=== PATIENT | female | born 1970 | race Caucasian/White ===

== ENCOUNTER 2020-07-31 09:38 | Emergency (ER) | payer MEDICAID, SELFPAY ==
[2020-07-31 10:17] VITALS: BP 166/90; PULSE 67; RESP 18; TEMP 37.3; O2SAT 96; BMI 36.0
--- NOTE | 2020-07-31 10:39 | XR_ITS ---
EXAMINATION: XR CHEST CLINICAL INFORMATION: 50-year-old female patient with dizziness. COMPARISON: None TECHNIQUE: AP portable erect view of the chest was obtained. The time of examination was 12:24 PM. FINDINGS: The heart is normal in size. Mediastinal and hilar structures are normal. Lungs are clear showing no evidence of acute pulmonary parenchymal or pleural disease. Mild thoracic scoliosis is present. XR/XR chest 1V IMPRESSION: No acute cardiopulmonary disease.
--- NOTE | 2020-07-31 10:39 | ECG_ITS ---
Test Reason : WEAKNESS Blood Pressure : / mmHG Vent. Rate : 064 BPM Atrial Rate : 064 BPM P-R Int : 160 ms QRS Dur : 088 ms QT Int : 420 ms P-R-T Axes : 044 023 001 degrees QTc Int : 433 ms Normal sinus rhythm Nonspecific ST and T wave abnormality Abnormal ECG When compared with ECG of 20-NOV-2015 13:31, Nonspecific T wave abnormality now evident in Inferior leads Referred By: Seema Rubi Electronically Signed By:Israel Snow
--- NOTE | 2020-07-31 10:40 | CT_ITS ---
EXAMINATION: CT HEAD WITHOUT CONTRAST CLINICAL INFORMATION: Dizziness COMPARISON: None TECHNIQUE: Contiguous axial imaging was performed from the skull base to vertex without intravenous administration of contrast. This CT examination was performed using dose optimization techniques as appropriate, variously including the following: *Automated exposure control *Adjustment of mA and/or kV according to patient size (this includes techniques or standardized protocols for targeted exams where dose is matched to indication/reason for exam; i.e. extremities or head) *Use of iterative reconstruction technique DLP: 714 mGy-cm FINDINGS: There is no acute intra-axial, extra-axial bleed, masses or collection. There is no midline shift. There is linear hypodensity in the right oamr likely infarct of indeterminate age or less likely artifact. Is best visualized on axial image 79/5. No additional areas of acute hypodensity seen to suspect any acute infarct. The lateral ventricles are symmetrical in size and configuration without enlargement. The ferguson to white matter differentiation is maintained without mass effect. Bone windows reveal no calvarial abnormality bilateral paranasal sinuses and mastoid air cells are well-aerated. There is no scalp soft tissue abnormality. CT/CT head/brain wo con IMPRESSION: No acute bleed. There is a linear hypodensity in the right omar suspicious of infarct of indeterminate age. It is less likely to represent any artifact.
--- NOTE | 2020-07-31 10:40 | MR_ITS ---
EXAMINATION: MR BRAIN WITHOUT CONTRAST CLINICAL INFORMATION: Dizziness. Rule out cerebellar stroke. COMPARISON: MRI dated 11/25/2015. TECHNIQUE: Multiplanar, multisequence imaging of the brain was performed without contrast. Slightly limited study with motion artifacts. FINDINGS: No diffusion abnormalities are identified to suggest an acute or subacute infarct. The ventricles are normal in size. No mass effect or midline shift is seen. Nonspecific mild white matter signal changes are stable. No extra-axial fluid collections are seen. The brainstem and cerebellum are normal. The gradient refocused acquisition is normal. The craniovertebral junction, marrow signal, and midline structures are normal. The major intracranial flow voids at the level of the [place] are preserved. The dural venous sinus flow voids are maintained. The mastoid air cells are well aerated. There are small retention cysts along the floors of the maxillary sinuses. MR/MR head/brain wo con IMPRESSION: Nonspecific mild white matter signal changes. No acute intracranial process.
--- NOTE | 2020-07-31 10:55 | ED_ITS ---
HPI - General Adult General Chief complaint: General Medical Stated complaint: dizziness Time Seen by Provider: 07/31/20 10:39 Source: patient Mode of arrival: ambulatory Limitations: no limitations History of Present Illness HPI narrative: 50-year-old female with history of hypertension, seizure, chronic headaches, presented with 2 days history of dizziness feeling unbalanced with unsteady gait, and vomiting, no weakness or sensory loss. Otherwise no headache, no blurry vision, no chest pain, no difficulty breathing, no abdominal pain. Patient also declined any ENT symptoms. Related Data Previous Rx's Medication Instructions Recorded amlodipine 2.5 mg PO DAILY #10 tab 07/31/20 meclizine 25 mg PO BID PRN #20 tab 07/31/20 Allergies Allergy/AdvReac Type Severity Reaction Status Date / Time latex [LATEX] Allergy Unknown RASH Unverified 03/18/20 17:08 codeine [Codeine] AdvReac Unknown NAUSEOUS Unverified 03/18/20 17:08 Review of Systems Review of Systems: All other systems are reviewed and are negative Constitutional: Reports as per HPI and Reports no additional constitutional complaints Eyes: Reports as per HPI and Reports no additional eye complaints Reports system reviewed and no additional complaints, except as documented Cardiovascular: Reports as per HPI and Reports no additional cardiovascular comp laints Respiratory: Reports as per HPI and Reports no additional respiratory complaints Gastrointestinal: Reports as per HPI and Reports no additional gastrointestinal complaints Genitourinary: Reports no additional female genitourinary complaints Musculoskeletal: Reports no additional musculoskeletal complaints Skin/Breast: Reports system reviewed and no additional complaints, except as docu Psychiatric: Reports no additional psychiatric complaints Endocrine: Reports no additional endocrine complaints Hematologic/Lymphatic: Reports no additional hematologic/lymphatic complaints Allergic/Immunologic: Reports no additional allergic/immunologic complaints Reports system reviewed and no additional complaints, except as documented and Reports Abnormal speech present [facility] Past Medical History Medical History Acid reflux HTN (hypertension) Migraine Seizure disorder Social History Social History Alcohol intake: never Smoked in Last 30 Days: No Use of substances other than those prescribed or required for medical reasons: No Advance Directives: No Advance Directives Information Provided: No Physical Exam Vital Signs: Vital Signs: Last Vital Signs Temp 97.8 F 07/31/20 13:34 Pulse 65 07/31/20 13:34 Resp 18 07/31/20 13:34 BP 172/86 H 07/31/20 13:34 Pulse Ox 98 07/31/20 13:34 Body Mass Index 36.0 Vital signs have been reviewed as normal and appeared to be correct. Blood pressure in the high range. Heart rate normal. Respiration rate normal. Temperature normal. Oxygen saturation normal. Appearance: Alert. Oriented X3. No acute distress. Head: Normal external exam. Normocephalic. Atraumatic. No Ware signs noted. No raccoon eyes noted Eyes: PERRLA. EOMI. Conjunctiva and sclera normal. Eyelids normal. ENT: EAC normal. TM's Normal. Pharynx normal. Uvula midline. Moist mucous membranes. No trismus noted. No drooling noted. No muffled voice noted. Neck: Normal inspection. Neck supple. FROM. No adenopathy. Thyroid Normal. No meningeal signs. No neck mass noted. CVS: Normal heart rate and rhythm. Heart sound normal. No murmurs noted. Pulses normal throughout. Respiratory: No respiratory distress. Painless inspiration. Breath sounds normal. No wheezes/rales/rhonchi noted. Chest nontender. No accessory muscle usage noted or decreased air movement noted. Abdomen: Soft and nontender. Bowel sounds normal in all 4 quadrants. No distention noted. No organomegaly noted. No visible injury noted. Back: No CVA tenderness. Full range of motion noted. Skin: Skin warm and dry. Normal skin color. Normal skin turgor. No rashes/lesions/lacerations noted. Extremities: No lower extremity edema. Extremities exhibit normal range of motion. Extremities nontender. Neuro: Oriented X 3. No motor deficit. No sensory deficit. Reflexes normal. NIH Stroke Scale Level of Consciousness: Alert Level of Consciousness Questions: Answers both questions correctly Level of Consciousness Commands: Performs both tasks correctly Best Gaze: Normal Visual: No visual loss Facial Palsy: Normal Motor Arm (Right): No drift Motor Arm (Left): No drift Motor Leg (Right): No drift Motor Leg (Left): No drift Limb Ataxia: Absent Sensory: Normal Best Language: No aphasia Dysarthia: Normal Extinction and Inattention: No abnormality Score: 0 Course Course Course Narrative: Assessment and plan. This is a 50-year-old female who presented with vomiting and dizziness (vertigo), normal neuro exam, patient had a brain MRI which showed no acute stroke, leukocytosis for unclear etiology. Patient with normal neuro exam and normal physical exam. Blood pressure on the high side patient had a history of high blood pressure taking propanolol 40 mg twice a day her, I will add amlodipine 2.5 mg once daily hopefully will give a a better control of blood pressure and follow-up with PCP. Will discharge the patient was encouraged to drink plenty of fluids, try meclizine. Medical Decision Making Lab Data Lab results reviewed: Yes I reviewed the patient's lab results. Result diagrams: 07/31/20 11:07 07/31/20 11:07 Labs: Lab Results 07/31/20 07/31/20 07/31/20 Range/Units 10:40 11:07 11:07 WBC 12.4 H (4.8-10.8) X10*3/uL RBC 4.67 (4.20-5.50) X10*6/uL Hgb 14.4 (12.0-16.0) g/dl Hct 42.2 (37-47) % MCV 90.4 (80-98) fL MCH 30.8 (27.0-33.0) pg MCHC 34.1 (31.0-35.0) g/dl RDW 12.6 (11.0-16.0) % Plt Count 430 H (160-400) X10*3/uL MPV 9.2 L (9.4-12.3) fL Immature Gran % (Auto) 0.3 (0.0-0.4) % Neut % (Auto) 57.3 (45-73) % Lymph % (Auto) 33.0 (20-40) % [place] % (Auto) 8.0 (2-11) % Eos % (Auto) 0.8 (0-4) % Baso % (Auto) 0.6 (0-2) % Lymph # (Auto) 4.1 (1.2-4.9) X10*3/uL [place] # (Auto) 1.0 (0.1-1.2) X10*3/uL Eos # (Auto) 0.1 (0.0-0.4) X10*3/uL Baso # (Auto) 0.1 (0.0-0.2) X10*3/uL Abs Immat Gran (auto) 0.04 H (0.00-0.03) X10*3/uL Absolute Neuts (auto) 7.1 (2.0-8.3) X10*3/uL Absolute Nucleated RBC 0.000 (0.0-0.012) X10*3/uL Nucleated RBC % (auto) 0.0 (0.0-0.2) /100WBC Sodium 137 (135-145) mmol/L Potassium 3.9 (3.3-5.1) mmol/L Chloride 98 (96-108) mmol/L Carbon Dioxide 29 (22-29) mmol/L Anion Gap 14 (12-20) BUN 16 (9-16) mg/dL Creatinine 0.79 (0.5-1.4) mg/dL Estim Creat Clear Calc 94.3 Estimated GFR > 60 Random Glucose 103 (60-115) mg/dL Calcium 10.4 H (8.4-10.2) mg/dL Total Bilirubin 0.8 (0.0-1.0) mg/dL Direct Bilirubin 0.2 (0.0-0.5) mg/dL AST 30 (5-31) U/L ALT 39 H (0-31) U/L Alkaline Phosphatase 68 (39-117) U/L Troponin I High Sens (<3.5-17.0) ng/L B-Natriuretic Peptide (<100) pg/mL Total Protein 6.7 (6.5-8.0) g/dL Albumin 4.4 (3.5-5.0) g/dL Lipase 39 (8-78) U/L Urine Color Urine Appearance Urine pH (5.0-8.0) Ur Specific [place] (1.005-1.025) Urine Protein (NEG-TRACE) MG/DL Urine Glucose (UA) (NEG) MG/DL Urine Ketones (NEG) MG/DL Urine Blood (NEG) Urine Nitrite (NEG) Ur Leukocyte Esterase (NEG) Urine Test NEG (NEGATIVE) COVID-19 (MIKEY) (Negative) COVID-19 Clin Com 07/31/20 07/31/20 07/31/20 Range/Units 11:07 11:07 11:32 WBC (4.8-10.8) X10*3/uL RBC (4.20-5.50) X10*6/uL Hgb (12.0-16.0) g/dl Hct (37-47) % MCV (80-98) fL MCH (27.0-33.0) pg MCHC (31.0-35.0) g/dl RDW (11.0-16.0) % Plt Count (160-400) X10*3/uL MPV (9.4-12.3) fL Immature Gran % (Auto) (0.0-0.4) % Neut % (Auto) (45-73) % Lymph % (Auto) (20-40) % [place] % (Auto) (2-11) % Eos % (Auto) (0-4) % Baso % (Auto) (0-2) % Lymph # (Auto) (1.2-4.9) X10*3/uL [place] # (Auto) (0.1-1.2) X10*3/uL Eos # (Auto) (0.0-0.4) X10*3/uL Baso # (Auto) (0.0-0.2) X10*3/uL Abs Immat Gran (auto) (0.00-0.03) X10*3/uL Absolute Neuts (auto) (2.0-8.3) X10*3/uL Absolute Nucleated RBC (0.0-0.012) X10*3/uL Nucleated RBC % (auto) (0.0-0.2) /100WBC Sodium (135-145) mmol/L Potassium (3.3-5.1) mmol/L Chloride (96-108) mmol/L Carbon Dioxide (22-29) mmol/L Anion Gap (12-20) BUN (9-16) mg/dL Creatinine (0.5-1.4) mg/dL Estim Creat Clear Calc Estimated GFR Random Glucose (60-115) mg/dL Calcium (8.4-10.2) mg/dL Total Bilirubin (0.0-1.0) mg/dL Direct Bilirubin (0.0-0.5) mg/dL AST (5-31) U/L ALT (0-31) U/L Alkaline Phosphatase (39-117) U/L Troponin I High Sens 7.2 (<3.5-17.0) ng/L B-Natriuretic Peptide 34 (<100) pg/mL Total Protein (6.5-8.0) g/dL Albumin (3.5-5.0) g/dL Lipase (8-78) U/L Urine Color STRAW Urine Appearance HAZY Urine pH 6.5 (5.0-8.0) Ur Specific [place] <= 1.005 (1.005-1.025) Urine Protein NEG (NEG-TRACE) MG/DL Urine Glucose (UA) NEG (NEG) MG/DL Urine Ketones NEG (NEG) MG/DL Urine Blood NEG (NEG) Urine Nitrite NEG (NEG) Ur Leukocyte Esterase NEG (NEG) Urine Test (NEGATIVE) COVID-19 (MIKEY) Negative (Negative) COVID-19 Clin Com See Note Imaging Data Chest x-ray: Radiologist's impression: The heart is normal in size. Mediastinal and hilar structures are normal. Lungs are clear showing no evidence of acute pulmonary parenchymal or pleural disease. Mild thoracic scoliosis is present. CT scan - head: Radiologist's impression: No acute bleed. There is a linear hypodensity in the right omar suspicious of infarct of indeterminate age. It is less likely to represent any artifact. MRI - head: Radiologist's impression: Nonspecific mild white matter signal changes. No acute intracranial process. ECG Data Interpretation: Normal sinus rhythm at 64 beats per minute, normal axis deviation, LVH, nonspecific ST-T changes. Discharge Plan Discharge Clinical Impression: Vertigo Hypertension Qualifiers: Hypertension type: unspecified Qualified Code(s): I10 - Essential (primary) hypertension Patient Disposition: Home, Self-Care Instructions: Vertigo (ED), Hypertension (ED) Prescriptions: New meclizine 25 mg tablet 25 mg PO BID PRN (Reason: dizziness) Qty: 20 RF: 0 amlodipine 2.5 mg tablet 2.5 mg PO DAILY Qty: 10 RF: 0 Referrals: Oj Arvizu [Primary Care Provider] - 2 days
[2020-07-31] MEDS: 0.9 % Sodium Chloride 1,000 ML 999 ML IVCONT (11:08)
[2020-07-31 11:12] LABS: MANUAL DIFF FLAG NO
[2020-07-31 11:13] VITALS: BP 181/96; PULSE 65; RESP 18; TEMP 37.1; O2SAT 98
[2020-07-31] MEDS: Meclizine HCl 25 MG TABLET PO (11:13)
[2020-07-31 11:14] LABS: Basophils Absolute Auto 0.1 X10*3/uL (0.0-0.2); Basophils Percent Auto 0.6 % (0-2); Eosinophils Absolute Auto 0.1 X10*3/uL (0.0-0.4); Eosinophils Percent Auto 0.8 % (0-4); Hematocrit 42.2 % (37-47); Hemoglobin 14.4 g/dl (12.0-16.0); Imm Gran Abs Auto 0.04 X10*3/uL (0.00-0.03); Imm Gran Pct Auto 0.3 % (0.0-0.4); Lymphocytes Absolute Auto 4.1 X10*3/uL (1.2-4.9); Mean Corpuscular HGB Conc 34.1 g/dl (31.0-35.0); Mean Corpuscular Hemoglobin 30.8 pg (27.0-33.0); Mean Corpuscular Volume 90.4 fL (80-98); Mean Platelet Volume 9.2 fL (9.4-12.3); Neutrophils Absolute Auto 7.1 X10*3/uL (2.0-8.3); Neutrophils Percent Auto 57.3 % (45-73); Platelet Count 430 X10*3/uL (160-400); Red Blood Count 4.67 X10*6/uL (4.20-5.50); Red Cell Distribution Width 12.6 % (11.0-16.0); White Blood Count 12.4 X10*3/uL (4.8-10.8)
--- NOTE | 2020-07-31 11:34 | PC.NURSE ---
iv inserted, labs drawn, ekg performed, pt medicated per order, urine obtained, pt to mri, will continue to monitor.
[2020-07-31 11:41] LABS: Alanine Aminotransferase 39 U/L (0-31); Albumin Level 4.4 g/dL (3.5-5.0); Alkaline Phosphatase 68 U/L (39-117); Anion Gap 14 (12-20); Aspartate Amino Transferase 30 U/L (5-31); Bilirubin Direct 0.2 mg/dL (0.0-0.5); Bilirubin Total 0.8 mg/dL (0.0-1.0); Blood Urea Nitrogen 16 mg/dL (9-16); Calcium 10.4 mg/dL (8.4-10.2); Carbon Dioxide 29 mmol/L (22-29); Chloride 98 mmol/L (96-108); Creatinine Clr Calc Pharmacy 94.3; Estimated Glomerular Filt Rate > 60; Glucose Random 103 mg/dL (60-115); Lipase 39 U/L (8-78); Potassium 3.9 mmol/L (3.3-5.1); Sodium 137 mmol/L (135-145); Total Protein 6.7 g/dL (6.5-8.0)
[2020-07-31 11:45] LABS: B Type Natriuretic Peptide 34 pg/mL (<100); Troponin-I High Sensitivity 7.2 ng/L (<3.5-17.0)
[2020-07-31 11:48] LABS: COVID-19 Test Negative (Negative)
[2020-07-31 11:50] LABS: Glucose Urine UA NEG (NEG); Leukocyte Esterase Urine NEG (NEG); Nitrite Urine NEG (NEG); PH 6.5 (5.0-8.0); Specific Gravity - Urine <= 1.005 (1.005-1.025); Urine Blood NEG (NEG); Urine Ketones NEG (NEG); Urine Protein NEG (NEG-TRACE)
[2020-07-31 12:09] LABS: Appearance Urine HAZY; Color Urine STRAW
--- NOTE | 2020-07-31 12:28 | PC.NURSE ---
ivf continue to be running as they had been stopped for mri, will continue to monitor.
[2020-07-31 12:39] LABS: UPreg QC Valid YES; Urine Pregnancy NEG (NEGATIVE)
[2020-07-31 13:34] VITALS: BP 172/86; PULSE 65; RESP 18; TEMP 36.6; O2SAT 98
--- NOTE | 2020-07-31 13:35 | PC.NURSE ---
patient a&ox3, vss- pt mildy hypertensive no c/o pain or discomfort, will continue to monitor.
[2020-07-31 14:11] VITALS: BP 172/86; PULSE 66
[2020-07-31] MEDS: amLODIPine Besylate 2.5 MG TABLET PO (14:11)
== END 2020-07-31 14:19 | disposition home or self-care (01) ==
PROVIDERS: Emergency Provider Emergency Medicine; PCP Hospitalist
DX: R42 Dizziness and giddiness (principal); I10 Essential (primary) hypertension; Z20.822 Contact with and (suspected) exposure to COVID-19
CPT/HCPCS: 36415; 70450; 70551; 71045; 80048; 80076; 81003; 81025; 83690; 83880; 84484; 85025; 87635; 93005; 96360; 99284

== ENCOUNTER → 2021-09-23 10:05 | Outpatient (BNVA) | payer MEDICAID, SELFPAY | PROVIDERS: PCP Hospitalist; Visit Provider Internal Medicine | DX: G44.021 Chronic cluster headache, intractable (principal) | CPT/HCPCS: 99202 ==

== ENCOUNTER 2023-02-12 13:34 | Outpatient (AMB) | payer OTHER, SELFPAY ==
--- NOTE | 2023-02-12 14:20 | MHC.OFFVIS ---
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 No hx of injections. Hx of PT with no relief. Hx of knee cream with no relief. Hx of Home exercises with no relief. Patient reports ongoing pain for 3 years. Pain is more on the bottom part of the knee cap on both knees. She reports that her left knee is worse than the right knee. Pain is worse when sitting down. 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 The patient reports chronic pain for 3 years, since 2019. She claims the pain is on the bottom aspect of the knee caps bilaterally. She states her left knee is worse then her right knee. She reports increased pain when sitting down. Patient has no history of cortisone injections. Patient uses topical cream with no relief. Patient works on home exercises with no relief. [facility] Medical History Acid reflux Chronic cluster headache, intractable HTN (hypertension) Migraine Seizure disorder Social History Alcohol intake: never Review of Systems Const All systems reviewed & are unremarkable except as noted in HPI and below Physical Exam Const General: cooperative and no acute distress Orientation/consciousness: patient oriented x3 Resp Effort & Inspection: normal respiratory effort and able to speak in complete sentences Cardio Peripheral pulses: Peripheral pulses 2+ throughout Skin General skin exam: no rashes or lesions noted Neuro General: patient oriented x3 Extrem Other: Bilateral knees: Normal to inspection. No ecchymosis, erythema, or joint effusion. No tenderness to palpation to the medial or lateral joint lines. Full knee extension and flexion. Crepitus felt with ROM, right worse then left. NVI. Office Procedures Joint Injection/Drain Joint Injection/Drain Primary Site: right knee Secondary Site: left knee Injected: 80 mg of, DepoMedrol, with 8 mL of (2% plain lido ) and in the joint Approach Used: anterolateral Procedure: The patient tolerated the procedure well, but had some pain with the injection and there was some relief with the local anesthesia Coding 64448 - Large joint Procedure code (CPT) selection complete Results Reviewed Results Reviewed: 02/12/23 14:31 Lidocaine HCl 2 % MPF [Xylocaine 2 % MPF] 5 ml .ROUTE .STK-MED ONE methylPREDNISolone acetate [DEPO-MedroL] 80 mg .ROUTE .STK-MED ONE Assessment & Plan Assessment & Plan (1) Osteoarthritis of right knee: Code(s): M17.11 - Unilateral primary osteoarthritis, right knee (2) Osteoarthritis of left knee: Code(s): M17.12 - Unilateral primary osteoarthritis, left knee Plan Ms. Awad is a 52-year-old female who presents in the office today, as a new patient, for an evaluation of bilateral knee pain. The patient reports chronic pain for 3 years, since 2019. She claims the pain is on the bottom aspect of the knee caps bilaterally. She states her left knee is worse then her right knee. She reports increased pain when sitting down. Patient has no history of cortisone injections. Patient uses topical cream with no relief. Patient works on home exercises with no relief. The patient was offered a cortisone injection in the bilateral knees with 80 mg of DepoMedrol. The patient was explained the risk, benefits, and alternatives to receiving this injection. After receiving consent for the injection, the patient had the procedure done while in office today. The patient tolerated the procedure well with no complications. Follow up will be PRN, or sooner if needed. X-rays of the bilateral knees which were obtained while in the office today and were reviewed by me, Ana Flores PA-C, revealed bilateral osteoarthritis. Orders: Orders XR knee LT 2V Today M25.569 - Pain in unspecified knee XR knee RT 2V Today M25.569 - Pain in unspecified knee XR knee standing BI Today M25.569 - Pain in unspecified knee Patient Instructions: Scribed for Ana Flores PA-C by Joie Francois medical underwriter, on 02/12/2023 at 1:37 pm, EST. Coding Level of Care Code New Pt Level 3 (51212) Diagnoses Osteoarthritis of right knee M17.11 Osteoarthritis of left knee M17.12 CPT Codes Coding - 60252 Large joint: 07406 - Large joint ([id number])
== END 2023-02-12 14:47 | disposition home or self-care (01) ==
PROVIDERS: PCP Hospitalist; Visit Provider Physician Assistant
DX: M17.0 Bilateral primary osteoarthritis of knee (principal)
CPT/HCPCS: 20610; 99203

== ENCOUNTER 2023-02-12 13:34 | Outpatient (REF) | payer OTHER, SELFPAY ==
--- NOTE | ~2023-02-12 | XR_ITS ---
X-RAY BILATERAL KNEES CLINICAL HISTORY: Pain. COMPARISON: No relevant prior studies are available for comparison. TECHNIQUE: 2 views of each knee. AP standing view both knees. FINDINGS: No acute fracture or subluxation. Mild joint space narrowing of the medial compartment of the left knee and less so right knee. No chondrocalcinosis or erosions. No significant joint effusion. XR/XR knee RT 2V IMPRESSION: 1. No acute fracture or malalignment. 2. Mild degenerative osteoarthritis of the medial compartments of both knees slightly more noticeable on the left side.
--- NOTE | ~2023-02-12 | XR_ITS ---
X-RAY BILATERAL KNEES CLINICAL HISTORY: Pain. COMPARISON: No relevant prior studies are available for comparison. TECHNIQUE: 2 views of each knee. AP standing view both knees. FINDINGS: No acute fracture or subluxation. Mild joint space narrowing of the medial compartment of the left knee and less so right knee. No chondrocalcinosis or erosions. No significant joint effusion. XR/XR knee LT 2V IMPRESSION: 1. No acute fracture or malalignment. 2. Mild degenerative osteoarthritis of the medial compartments of both knees slightly more noticeable on the left side.
--- NOTE | ~2023-02-12 | XR_ITS ---
X-RAY BILATERAL KNEES CLINICAL HISTORY: Pain. COMPARISON: No relevant prior studies are available for comparison. TECHNIQUE: 2 views of each knee. AP standing view both knees. FINDINGS: No acute fracture or subluxation. Mild joint space narrowing of the medial compartment of the left knee and less so right knee. No chondrocalcinosis or erosions. No significant joint effusion. XR/XR knee standing BI IMPRESSION: 1. No acute fracture or malalignment. 2. Mild degenerative osteoarthritis of the medial compartments of both knees slightly more noticeable on the left side.
== END 2023-02-12 13:35 | disposition home or self-care (01) ==
LOC: HO.HOSX 13:34
PROVIDERS: PCP Hospitalist; Visit Provider Physician Assistant
DX: M17.0 Bilateral primary osteoarthritis of knee (principal)
CPT/HCPCS: 20610; 73560; 73565; 99202; J1040

== ENCOUNTER 2023-06-21 12:28 | Outpatient (AMB) | payer OTHER, SELFPAY ==
--- NOTE | 2023-06-21 12:35 | MHC.OFFVIS ---
Intake Intake Visit Reasons: OV-RT Ankle sprain-w/xrays cast off Intake Note: [place] 53 yr old female presents today s/p bilateral injection from 02/12/23 states injection lasted about 2 months and would like to repeat injection today. Allergies baclofen Allergy (Intermediate, Verified 06/21/23 12:36) Dizziness latex [LATEX] Allergy (Unknown, Verified 06/21/23 12:36) RASH codeine [Codeine] Adverse Reaction (Unknown, Verified 06/21/23 12:36) NAUSEOUS HPI OV-RT Ankle sprain-w/xrays cast off HPI Details 53-year-old female who presents in the office today for a follow up of bilateral knee osteoarthritis. I last saw the patient in the office on 02/12/2023 at which time she received bilateral cortisone injections. While in the office today the patient reports the injections gave her about 2 months of relief. She would like to repeat the injections while in the office today. [facility] Medical History Acid reflux Chronic cluster headache, intractable HTN (hypertension) Migraine Seizure disorder Social History Alcohol intake: never Review of Systems Const All systems reviewed & are unremarkable except as noted in HPI and below Physical Exam Const General: cooperative, healthy appearing and no acute distress Resp Effort & Inspection: normal respiratory effort and able to speak in complete sentences Cardio Rate: regular rate Peripheral pulses: Peripheral pulses 2+ throughout GI Palpation (GI): Soft to palpation Skin Lesions: no lesions Rashes: no rashes Extrem Other: Bilateral knees: Normal to inspection. No ecchymosis, erythema, or joint effusion. No tenderness to palpation to the medial or lateral joint lines. Full knee extension and flexion. Crepitus felt with ROM, right worse then left. NVI. Office Procedures Joint Injection/Drain Joint Injection/Drain Primary Site: right knee Secondary Site: left knee Prep: site was prepped using aseptic technique, ethochloride spray was applied and injection warnings given Injected: 80 mg of, DepoMedrol and with 8 mL of (2% plain lido ) Approach Used: anterolateral Procedure: The patient tolerated the procedure well, but had some pain with the injection and there was some relief with the local anesthesia Coding 77928 - Large joint Procedure code (CPT) selection complete Assessment & Plan Assessment & Plan (1) Osteoarthritis of right knee: Code(s): M17.11 - Unilateral primary osteoarthritis, right knee Qualifiers: Osteoarthritis type: unspecified Qualified Code(s): M17.11 - Unilateral primary osteoarthritis, right knee (2) Osteoarthritis of left knee: Code(s): M17.12 - Unilateral primary osteoarthritis, left knee Qualifiers: Osteoarthritis type: unspecified Qualified Code(s): M17.12 - Unilateral primary osteoarthritis, left knee Plan Ms. Awad is a 53-year-old female who presents in the office today for a follow up of bilateral knee osteoarthritis. I last saw the patient in the office on 02/12/2023 at which time she received bilateral cortisone injections. While in the office today the patient reports the injections gave her about 2 months of relief. She would like to repeat the injections while in the office today. The patient was offered a cortisone injection in the bilateral knees with 80 mg of DepoMedrol. The patient was explained the risk, benefits, and alternatives to receiving this injection. After receiving consent for the injection, the patient had the procedure done while in office today. The patient tolerated the procedure well with no complications. Follow up will be PRN, or sooner if needed. Patient Instructions: Scribed for Ana Flores PA-C by Joie Francois medical office receptionist, on 06/21/2023 at 12:33 pm, EST. Coding Level of Care Code Est Pt Level 3 (31008) Diagnoses Osteoarthritis of right knee, unspecified osteoarthritis type M17.11 Osteoarthritis type: unspecified Osteoarthritis of left knee, unspecified osteoarthritis type M17.12 Osteoarthritis type: unspecified CPT Codes Coding - 82126 Large joint: 02873 - Large joint ([id number])
== END 2023-06-21 12:54 | disposition home or self-care (01) ==
PROVIDERS: PCP Nurse Practitioner Family; Visit Provider Physician Assistant
DX: M17.0 Bilateral primary osteoarthritis of knee (principal)
CPT/HCPCS: 20610; 99213

== ENCOUNTER → 2023-06-21 12:28 | Outpatient (BNVA) | payer OTHER, SELFPAY | PROVIDERS: PCP Nurse Practitioner Family; Visit Provider Physician Assistant | DX: M17.0 Bilateral primary osteoarthritis of knee (principal) | CPT/HCPCS: 20610; 99212; J1040 ==

== ENCOUNTER 2023-08-08 17:17 | Emergency (ER) | payer OTHER, MEDICAID, SELFPAY ==
--- NOTE | ~2023-08-08 | XR_ITS ---
EXAMINATION: Bilateral knee and bilateral hand. Clinical indications: Status post fall with pain. COMPARISON: None. TECHNIQUE: 3 views each knee and 4 views each hand/wrist. FINDINGS: RIGHT KNEE: There is minimal loss of medial compartment joint space with periarticular spurring. The lateral and the patellofemoral compartment joint space is preserved. LEFT KNEE: There is mild loss of medial compartment joint space. No visible acute fracture or dislocation seen. No abnormal joint effusion or loose bodies. BILATERAL HAND/WRIST: Visualized intercarpal, carpometacarpal, interphalangeal and metacarpophalangeal joint spaces are maintained normal. There is no visible acute fracture, dislocation or subluxation seen in the left hand or left wrist. No abnormal joint effusion. The scaphoid bone is normal. XR/XR knee LT 4V IMPRESSION: Unremarkable bilateral hand/wrist exam. Mild loss of medial compartment joint space with periapical spurring of both knees. No visible acute fracture or dislocation seen.
--- NOTE | ~2023-08-08 | XR_ITS ---
EXAMINATION: Bilateral knee and bilateral hand. Clinical indications: Status post fall with pain. COMPARISON: None. TECHNIQUE: 3 views each knee and 4 views each hand/wrist. FINDINGS: RIGHT KNEE: There is minimal loss of medial compartment joint space with periarticular spurring. The lateral and the patellofemoral compartment joint space is preserved. LEFT KNEE: There is mild loss of medial compartment joint space. No visible acute fracture or dislocation seen. No abnormal joint effusion or loose bodies. BILATERAL HAND/WRIST: Visualized intercarpal, carpometacarpal, interphalangeal and metacarpophalangeal joint spaces are maintained normal. There is no visible acute fracture, dislocation or subluxation seen in the left hand or left wrist. No abnormal joint effusion. The scaphoid bone is normal. XR/XR knee RT 2V IMPRESSION: Unremarkable bilateral hand/wrist exam. Mild loss of medial compartment joint space with periapical spurring of both knees. No visible acute fracture or dislocation seen.
--- NOTE | ~2023-08-08 | CT_ITS ---
EXAMINATION: CT, brain, CT cervical spine and CT facial bones. CLINICAL INDICATIONS: Fall, pain. COMPARISON: CT brain 07/31/2020. TECHNIQUE: 5 mm thin axial and reformatted 2 mm thin sagittal and coronal images of brain were obtained. DLP 714. Subsequently axial 3 mm thin and reformatted 2 mm thin sagittal and coronal images of cervical spine were obtained. Lastly axial 3 mm thin and reformatted 1.5 mm thin sagittal and coronal images of facial bones were obtained. DLP 714. This CT examination was performed using dose optimization technique as appropriate, variously including the following: Automated exposure control Adjustment of MA and/or KV according to patient size(this includes techniques or standardized protocols for targeted exams where dose is matched to indication/reason for exam; extremities or head. Use of iterative reconstruction techniques. FINDINGS: Brain: There is no acute intra-axial, extra-axial bleed, masses or midline shift. There is no acute infarction in evolution. There is no edema. The lateral ventricles are symmetrical in size and configuration but enlarged. The ferguson to white matter difference is maintained normal. Bone windows reveal no calvarial abnormality. There is no scalp soft tissue abnormality. There is mucoperiosteal thickening bilateral maxillary and minimal ethmoid sinuses. Rest the paranasal sinuses and mastoid air cells are well-aerated. Facial bones: There is mild mucoperiosteal thickening bilateral maxillary and middle ethmoid sinuses. Lamina papyracea, cribriform plate and the bony sinus [place]ak are intact. Visualized bilateral optic globes, optic nerve and the bony orbits are intact there is no periorbital or intraorbital soft tissue swelling. There are no fractures involving nasal bones. The maxillofacial bones and the soft tissues are normal. Bilateral TM joints are symmetrical and normal. No fracture involving the mandible. Cervical spine: There is mild reversal of cervical lordosis. The vertebral heights and alignment is normal. Is loss of C4-C5, C5-C6 and C6-C7 disc heights with moderate ventral spondylosis. The craniovertebral junction and the C1-C2 alignment is normal. There is no visible acute fracture, dislocation or subluxation seen. The lung apices are clear. The tracheal airway is widely patent. There is a calcified and noncalcified nodule in the left thyroid lobe and a moderate size 1 cm nodule right thyroid lobe. The prevertebral and paravertebral soft tissues are normal. CT/CT cervical spine wo IV con IMPRESSION: 1. No acute intracranial process seen. 2. Age-related cerebral volume loss. 3. No acute maxillofacial, nasal or mandibular fracture. There is bilateral maxillary and minimal ethmoid sinus inflammatory changes. 4. Reversal of cervical lordosis with degenerative disc changes as described above. There is no visible acute fracture, dislocation or subluxation seen. Moderate ventral spondylosis.
--- NOTE | ~2023-08-08 | XR_ITS ---
EXAMINATION: Bilateral knee and bilateral hand. Clinical indications: Status post fall with pain. COMPARISON: None. TECHNIQUE: 3 views each knee and 4 views each hand/wrist. FINDINGS: RIGHT KNEE: There is minimal loss of medial compartment joint space with periarticular spurring. The lateral and the patellofemoral compartment joint space is preserved. LEFT KNEE: There is mild loss of medial compartment joint space. No visible acute fracture or dislocation seen. No abnormal joint effusion or loose bodies. BILATERAL HAND/WRIST: Visualized intercarpal, carpometacarpal, interphalangeal and metacarpophalangeal joint spaces are maintained normal. There is no visible acute fracture, dislocation or subluxation seen in the left hand or left wrist. No abnormal joint effusion. The scaphoid bone is normal. XR/XR hand wrist LT IMPRESSION: Unremarkable bilateral hand/wrist exam. Mild loss of medial compartment joint space with periapical spurring of both knees. No visible acute fracture or dislocation seen.
--- NOTE | ~2023-08-08 | CT_ITS ---
EXAMINATION: CT, brain, CT cervical spine and CT facial bones. CLINICAL INDICATIONS: Fall, pain. COMPARISON: CT brain 07/31/2020. TECHNIQUE: 5 mm thin axial and reformatted 2 mm thin sagittal and coronal images of brain were obtained. DLP 714. Subsequently axial 3 mm thin and reformatted 2 mm thin sagittal and coronal images of cervical spine were obtained. Lastly axial 3 mm thin and reformatted 1.5 mm thin sagittal and coronal images of facial bones were obtained. DLP 714. This CT examination was performed using dose optimization technique as appropriate, variously including the following: Automated exposure control Adjustment of MA and/or KV according to patient size(this includes techniques or standardized protocols for targeted exams where dose is matched to indication/reason for exam; extremities or head. Use of iterative reconstruction techniques. FINDINGS: Brain: There is no acute intra-axial, extra-axial bleed, masses or midline shift. There is no acute infarction in evolution. There is no edema. The lateral ventricles are symmetrical in size and configuration but enlarged. The ferguson to white matter difference is maintained normal. Bone windows reveal no calvarial abnormality. There is no scalp soft tissue abnormality. There is mucoperiosteal thickening bilateral maxillary and minimal ethmoid sinuses. Rest the paranasal sinuses and mastoid air cells are well-aerated. Facial bones: There is mild mucoperiosteal thickening bilateral maxillary and middle ethmoid sinuses. Lamina papyracea, cribriform plate and the bony sinus [place] are intact. Visualized bilateral optic globes, optic nerve and the bony orbits are intact there is no periorbital or intraorbital soft tissue swelling. There are no fractures involving nasal bones. The maxillofacial bones and the soft tissues are normal. Bilateral TM joints are symmetrical and normal. No fracture involving the mandible. Cervical spine: There is mild reversal of cervical lordosis. The vertebral heights and alignment is normal. Is loss of C4-C5, C5-C6 and C6-C7 disc heights with moderate ventral spondylosis. The craniovertebral junction and the C1-C2 alignment is normal. There is no visible acute fracture, dislocation or subluxation seen. The lung apices are clear. The tracheal airway is widely patent. There is a calcified and noncalcified nodule in the left thyroid lobe and a moderate size 1 cm nodule right thyroid lobe. The prevertebral and paravertebral soft tissues are normal. CT/CT head/brain wo IV con IMPRESSION: 1. No acute intracranial process seen. 2. Age-related cerebral volume loss. 3. No acute maxillofacial, nasal or mandibular fracture. There is bilateral maxillary and minimal ethmoid sinus inflammatory changes. 4. Reversal of cervical lordosis with degenerative disc changes as described above. There is no visible acute fracture, dislocation or subluxation seen. Moderate ventral spondylosis.
--- NOTE | ~2023-08-08 | XR_ITS ---
EXAMINATION: Bilateral knee and bilateral hand. Clinical indications: Status post fall with pain. COMPARISON: None. TECHNIQUE: 3 views each knee and 4 views each hand/wrist. FINDINGS: RIGHT KNEE: There is minimal loss of medial compartment joint space with periarticular spurring. The lateral and the patellofemoral compartment joint space is preserved. LEFT KNEE: There is mild loss of medial compartment joint space. No visible acute fracture or dislocation seen. No abnormal joint effusion or loose bodies. BILATERAL HAND/WRIST: Visualized intercarpal, carpometacarpal, interphalangeal and metacarpophalangeal joint spaces are maintained normal. There is no visible acute fracture, dislocation or subluxation seen in the left hand or left wrist. No abnormal joint effusion. The scaphoid bone is normal. XR/XR hand wrist RT IMPRESSION: Unremarkable bilateral hand/wrist exam. Mild loss of medial compartment joint space with periapical spurring of both knees. No visible acute fracture or dislocation seen.
[2023-08-08 18:00] VITALS: BP 152/77; PULSE 68; RESP 18; TEMP 36; O2SAT 96; BMI 35.0
--- NOTE | 2023-08-08 18:06 | ED_ITS ---
HPI - Fall General Chief Complaint: Fall Stated Complaint: fell and hit face and head - referred by pcp Time Seen by Provider: 08/08/23 23:56 History of Present Illness HPI Narrative: Patient is a 53-year-old woman with a history of a seizure disorder and chronic headaches who says that her gait is somewhat unsteady at baseline. She was in her home today when she tripped and fell. She fell forward landing on her knees, her hands, and her face. Related Data Home Medications Medication Instructions Recorded Confirmed divalproex 250 mg tablet,delayed 250 mg PO BID 09/23/21 release gabapentin 300 mg capsule 600 mg PO TID 09/23/21 omeprazole 20 mg capsule,delayed 20 mg PO BID 09/23/21 release lamotrigine 25 mg tablet 200 mg PO BID 02/12/23 magnesium oxide 400 mg (241.3 mg 400 mg PO DAILY 02/12/23 magnesium) tablet propranolol 40 mg tablet 40 mg PO BID 02/12/23 riboflavin (vitamin B2) 400 mg 400 mg PO DAILY 02/12/23 tablet Previous Rx's Medication Instructions Recorded amlodipine 2.5 mg tablet 2.5 mg PO DAILY #10 tabs 07/31/20 meclizine 25 mg tablet 25 mg PO BID PRN dizziness #20 tabs 07/31/20 Allergies Allergy/AdvReac Type Severity Reaction Status Date / Time baclofen Allergy Intermediate Dizziness Verified 08/08/23 18:00 latex [LATEX] Allergy Unknown RASH Verified 08/08/23 18:00 codeine [Codeine] AdvReac Unknown NAUSEOUS Verified 08/08/23 18:00 PMFSH Past Medical History Medical History Acid reflux Chronic cluster headache, intractable HTN (hypertension) Migraine Seizure disorder Social History Social History Alcohol intake: never Advance Directives: No Advance Directives Information Provided: No Physical Exam Vital Signs: Vital Signs: Last Vital Signs Temp 96.8 F 08/08/23 18:00 Pulse 68 08/08/23 18:00 Resp 18 08/08/23 18:00 BP 152/77 H 08/08/23 18:00 Pulse Ox 96 08/08/23 18:00 O2 Del Method Room Air 08/08/23 18:00 BMI result Body Mass Index 35.0 Const: Other: The patient is awake and alert. She has a somewhat overweight, somewhat chronically ill-appearing 53-year-old who is pleasant cooperative. She does not appear severely injured. HEENT: Other: Mild contusion to the forehead. No raccoon eyes. No st sign. No hemotympanum. Eyes: General: appearance normal, both eyes and all related structures Eyelids: Yes eyelids normal Conjunctivae: conjunctivae normal Pupils: Equal, round and reactive pupils present EOM: EOMs intact bilaterally Neck: Other: Diffuse posterior C-spine tenderness, mostly paraspinous tenderness bilaterally Resp: Effort & Inspection: normal respiratory effort Auscultation: clear to auscultation bilaterally Cardio: Rate: regular rate Rhythm: regular rhythm Heart sounds: S1 normal heart sound present and S2 normal heart sound present Skin: Other: The patient has abrasions to the knees and hands. Contusion to the forehead. Neuro: Other: The patient is awake, alert, oriented, appropriate. Cranial nerves 2-12 are grossly intact. She moves her extremities appropriately and symmetrically. Gait was reasonably steady. Cranial nerves: Yes Equal, round and reactive pupils present Extrem: Other: Diffuse tenderness to multiple portions of both hands and diffuse tenderness to the knees but she is able to use her joints well. Course Course Course Narrative: RME:?53 yo female here with face pain, R hand pain, left knee pain s/p trip and fall in her kitchen. fell forward onto vinyl tile. no LOC. no thinners bruises to face. perrla. abrasions to R hand, L knee. exam nonfocal. imaging ordered. Full HPI, ROS and PE to be performed by the primary ED provider. contacted by [employer] who states patient is now requesting xrays of both hands and both knees. Medical Decision Making Medical Decision Making MDM Narrative: The patient is a 53-year-old woman with a history of chronic headaches and a seizure disorder who says that she normally has a somewhat unsteady gait and considers herself prone to falls. She tripped and fell at her own home today. She struck her head. She contacted her PCP you had her come to the emergency room for evaluation. She has a negative CT scan of the head, face, and cervical spine. She has negative x-rays of both knees as well as the hands and the wrists bilaterally. She has some minor skin injuries. Otherwise she looks well and can be managed as an outpatient. Discharge Plan Discharge Clinical Impression: Fall, Head injury, Cervical strain, acute, Contusion of knee, Contusion of hand(s) Patient Disposition: Home, Self-Care Additional Instructions: Your testing in the emergency room today shows that you did not break any bones or have any other acutely dangerous injuries. Please plan on resting and taking it easy over the next few days. You may use acetaminophen and ibuprofen as needed for pains. You will probably feel more sore before you start to feel better. Often people feel worse the day after a fall. Please stay in touch with your regular doctor for additional advice as needed. Return to the emergency room if significantly worse. Prescriptions: No Action meclizine 25 mg tablet 25 mg PO BID PRN (Reason: dizziness) Qty: 20 0RF amlodipine 2.5 mg tablet 2.5 mg PO DAILY Qty: 10 0RF divalproex 250 mg tablet,delayed release (DR/EC) 250 mg PO BID gabapentin 300 mg capsule 600 mg PO TID omeprazole 20 mg capsule,delayed release(DR/EC) 20 mg PO BID lamotrigine 25 mg tablet 200 mg PO BID propranolol 40 mg tablet 40 mg PO BID riboflavin (vitamin B2) 400 mg tablet 400 mg PO DAILY magnesium oxide 400 mg (241.3 mg magnesium) tablet 400 mg PO DAILY Referrals: Song Cooney MD [Primary Care Provider] -
[2023-08-09 00:05] VITALS: BP 129/73; PULSE 61; RESP 20; O2SAT 96
== END 2023-08-09 00:16 | disposition home or self-care (01) ==
PROVIDERS: Emergency Provider Emergency Medicine; PCP Internal Medicine
DX: S09.90XA Unspecified injury of head, initial encounter (principal); S16.1XXA Strain of muscle, fascia and tendon at neck level, initial encounter; S80.02XA Contusion of left knee, initial encounter; S60.221A Contusion of right hand, initial encounter; W01.0XXA Fall on same level from slipping, tripping and stumbling without subsequent striking against object, initial encounter; Y93.89 Activity, other specified; Y92.039 Unspecified place in apartment as the place of occurrence of the external cause; Y99.9 Unspecified external cause status
CPT/HCPCS: 70450; 70486; 72125; 73110; 73130; 73560; 73564; 99283; 99284

== ENCOUNTER 2023-09-21 12:36 | Outpatient (AMB) | payer OTHER, SELFPAY ==
[2023-09-21 12:59] VITALS: BMI 35.0
--- NOTE | 2023-09-21 12:59 | A.OFFVIS_ITS ---
Intake Vital Signs 09/21/23 12:59 Height 5 ft 4 in Weight 204 lb BMI 35.0 Intake Visit Reasons: OV - B/L knee OA, last inj 06/21/23 Intake Note: Kenya is a 53 year old female who presents today for a follow up for her left knee OA, last injection for bilateral knee on 06/21/23. States injection were painful at first but then she felt relief and would like to repeat injection today. Allergies baclofen Allergy (Intermediate, Verified 09/21/23 13:01) Dizziness latex [LATEX] Allergy (Unknown, Verified 09/21/23 13:01) RASH codeine [Codeine] Adverse Reaction (Unknown, Verified 09/21/23 13:01) NAUSEOUS HPI OV - B/L knee OA, last inj 06/21/23 HPI Details 53-year-old female who presents in the [facility] today for a follow up of bilateral knee osteoarthritis. I last saw the patient in the office on 06/21/2023 at which time she was given bilateral knee cortisone injections. Patient states the injection was painful at first, but then she felt relief. She would like to repeat the injection today. [facility] Medical History Acid reflux Chronic cluster headache, intractable HTN (hypertension) Migraine Seizure disorder Social History Alcohol intake: never Review of Systems Const All systems reviewed & are unremarkable except as noted in HPI and below Physical Exam Vital Signs: BMI result Body Mass Index 35.0 Const General: cooperative, healthy appearing and no acute distress Resp Effort & Inspection: normal respiratory effort and able to speak in complete sentences Cardio Rate: regular rate Peripheral pulses: Peripheral pulses 2+ throughout GI Palpation (GI): Soft to palpation Skin Lesions: no lesions Rashes: no rashes Extrem Other: Bilateral knees: Normal to inspection. No ecchymosis, erythema, or joint effusion. No tenderness to palpation to the medial or lateral joint lines. Full knee extension and flexion. Crepitus felt with ROM, right worse then left. NVI. Office Procedures Joint Injection/Drain Joint Injection/Drain Primary Site: right knee Secondary Site: left knee Prep: site was prepped using aseptic technique, ethochloride spray was applied and injection warnings given Injected: 80 mg of, DepoMedrol, with 8 mL of (2% plain lido ) and in the joint Approach Used: anterolateral Procedure: The patient tolerated the procedure well, but had some pain with the injection and there was some relief with the local anesthesia Coding 45044 - Large joint Procedure code (CPT) selection complete Assessment & Plan Assessment & Plan (1) Osteoarthritis of right knee: Code(s): M17.11 - Unilateral primary osteoarthritis, right knee Qualifiers: Osteoarthritis type: unspecified Qualified Code(s): M17.11 - Unilateral primary osteoarthritis, right knee (2) Osteoarthritis of left knee: Code(s): M17.12 - Unilateral primary osteoarthritis, left knee Qualifiers: Osteoarthritis type: unspecified Qualified Code(s): M17.12 - Unilateral primary osteoarthritis, left knee Plan Ms. Awad is a 53-year-old female who presents in the office today for a follow up of bilateral knee osteoarthritis. I last saw the patient in the office on 06/21/2023 at which time she was given bilateral knee cortisone injections. Patient states the injection was painful at first, but then she felt relief. She would like to repeat the injection today. The patient was offered a cortisone injection in the bilateral knees with 80 mg of DepoMedrol. The patient was explained the risk, benefits, and alternatives to receiving this injection. After receiving consent for the injection, the patient had the procedure done while in office today. The patient tolerated the procedure well with no complications. Follow up will be PRN, or sooner if needed. X-rays of the bilateral knees which were obtained while in the office today and were reviewed by me, Ana Flores PA-C, revealed no acute fracture or dislocation. Orders: Orders XR knee standing BI Today M25.569 - Pain in unspecified knee Patient Instructions: Scribed by Joie Francois medical intern, for Ana Flores PA-C on 09/21/2023 at 12:43 pm, EST. Coding Level of Care Code Est Pt Level 3 (83268) Diagnoses Osteoarthritis of right knee, unspecified osteoarthritis type M17.11 Osteoarthritis type: unspecified Osteoarthritis of left knee, unspecified osteoarthritis type M17.12 Osteoarthritis type: unspecified CPT Codes Coding - Large joint: 55205 - Large joint ([id number])
== END 2023-09-21 13:17 | disposition home or self-care (01) ==
PROVIDERS: PCP Nurse Practitioner Family; Visit Provider Physician Assistant
DX: M17.0 Bilateral primary osteoarthritis of knee (principal)
CPT/HCPCS: 20610; 99213

== ENCOUNTER 2023-09-21 13:11 | Outpatient (REF) | payer OTHER, SELFPAY ==
--- NOTE | ~2023-09-21 | XR_ITS ---
EXAMINATION: XR BILATERAL KNEES CLINICAL INFORMATION: Pain in unspecified knee. COMPARISON: Right knee and left knee 08/08/2023. TECHNIQUE: AP standing and sunrise views of bilateral knees. FINDINGS: RIGHT KNEE: Mild narrowing of the medial and lateral compartments. Faint chondrocalcinosis in the lateral and possibly medial compartments. LEFT KNEE: [id number] narrowing of the medial compartment with medial and lateral small marginal osteophytes. Small left posterior patellar osteophytes. XR/XR knee LT 2V IMPRESSION: Mild degenerative changes in the bilateral knees.
--- NOTE | ~2023-09-21 | XR_ITS ---
EXAMINATION: XR BILATERAL KNEES CLINICAL INFORMATION: Pain in unspecified knee. COMPARISON: Right knee and left knee 08/08/2023. TECHNIQUE: AP standing and sunrise views of bilateral knees. FINDINGS: RIGHT KNEE: Mild narrowing of the medial and lateral compartments. Faint chondrocalcinosis in the lateral and possibly medial compartments. LEFT KNEE: [id number]-[id number] narrowing of the medial compartment with medial and lateral small marginal osteophytes. Small left posterior patellar osteophytes. XR/XR knee RT 2V IMPRESSION: Mild degenerative changes in the bilateral knees.
== END 2023-09-21 13:12 | disposition home or self-care (01) ==
LOC: HO.HOSX 13:11
PROVIDERS: Visit Provider Physician Assistant
DX: M17.0 Bilateral primary osteoarthritis of knee (principal)
CPT/HCPCS: 20610; 73560; 99212; J1040

== ENCOUNTER 2023-11-01 10:47 | Outpatient (REF) | payer OTHER, SELFPAY ==
--- NOTE | ~2023-11-01 | XR_ITS ---
EXAMINATION: XR LUMBOSACRAL SPINE CLINICAL INFORMATION: Back pain. COMPARISON: None available. TECHNIQUE: Three views of the lumbosacral spine. FINDINGS: Levoscoliosis of the lumbar spine. Facet arthritis in the lower lumbar spine. Bilateral sacroiliac joints are symmetric. Lumbar vertebral body heights are preserved. Multilevel lumbar spondylosis with advanced degenerative changes and loss of disc space height at L5 on S1. XR/XR lumbar spine 2-3V IMPRESSION: Multilevel lumbar spondylosis with advanced degenerative changes and loss of disc space height at L5 on S1.
== END 2023-11-01 10:48 | disposition home or self-care (01) ==
LOC: HO.HOSX 10:47
PROVIDERS: PCP Internal Medicine; Visit Provider Physical Medicine & Rehabilitation
DX: M54.9 Dorsalgia, unspecified (principal); M53.3 Sacrococcygeal disorders, not elsewhere classified; M79.18 Myalgia, other site; R29.6 Repeated falls
CPT/HCPCS: 72100; 99202

== ENCOUNTER 2023-11-01 10:47 | Outpatient (AMB) | payer OTHER, SELFPAY ==
--- NOTE | 2023-11-01 11:01 | MHC.OFFVIS ---
Vital Signs 11/01/23 11:02 Height 5 ft 4 in Weight 204 lb BMI 35.0 Intake Visit Reasons: Newprob-Spine/lower back pain Intake Note: Kenya 53 yr old female presents today for a new patient evaluation for her spine/lower back pain. States she was told from the ED dept after a cervical spine CT scan she has spine deformity. States she has lower back pain and is uncomfortable when walking, sitting and exercising. She also complains of neck pain that is constant. States she was Referred by Levi Perez. Hx of migraines and seizures. Allergies baclofen Allergy (Intermediate, Verified 11/01/23 11:11) Dizziness latex [LATEX] Allergy (Unknown, Verified 11/01/23 11:11) RASH codeine [Codeine] Adverse Reaction (Unknown, Verified 11/01/23 11:11) NAUSEOUS HPI Comments Details: History of a seizure disorder and chronic headaches, gait is somewhat unsteady at baseline, who fell at home 08/08/23, landing on her knees, her hands, and her face. Presented to ER. Negative CT scan of the head, face, and cervical spine. Negative x-rays of both knees as well as the hands and the wrists bilaterally. Some minor skin injuries. She had fallen once after again. She says she gets off balance and dizzy. She gets seizures 1-3 days, says controlled by medicine, managed by Dr. Conrad in [facility]. Sees a headache specialist from [place] with Botox. Chronic back pain, roughly 10 years. Pain on posterior neck and points to sacral area, constant, bothers her with almost any activity. Lower back could radiate to thighs but not lower than knees. No numbness. The neck pain does not radiate. No numbness. 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 Patient was appropriately conversant and oriented. Forgetful. MSK: No specific abnormalities found on inspection of the spine and all extremities. No pain with palpation over the lumbar area. Tenderness is over right SI joint. Tight upper trapezius. Lumbar ROM was full. Straight-leg raising test negative. FABERE test negative. Unstable gait. Neurological: Negative pronator drift. Prasad?s negative bilaterally. Babinski was down going bilaterally. Clonus was negative. Results Reviewed Results Reviewed: Ordering Physician: Sierra Rhodes Date of Service: 08/08/23 Procedure(s): CT head/brain wo IV con Accession Number(s): [id number] cc: Physician,Unknown ; Sierra Rhodes~ EXAMINATION: CT, brain, CT cervical spine and CT facial bones. CLINICAL INDICATIONS: Fall, pain. COMPARISON: CT brain 07/31/2020. TECHNIQUE: 5 mm thin axial and reformatted 2 mm thin sagittal and coronal images of brain were obtained. DLP 714. Subsequently axial 3 mm thin and reformatted 2 mm thin sagittal and coronal images of cervical spine were obtained. Lastly axial 3 mm thin and reformatted 1.5 mm thin sagittal and coronal images of facial bones were obtained. DLP 714. This CT examination was performed using dose optimization technique as appropriate, variously including the following: Automated exposure control Adjustment of MA and/or KV according to patient size(this includes techniques or standardized protocols for targeted exams where dose is matched to indication/reason for exam; extremities or head. Use of iterative reconstruction techniques. FINDINGS: Brain: There is no acute intra-axial, extra-axial bleed, masses or midline shift. There is no acute infarction in evolution. There is no edema. The lateral ventricles are symmetrical in size and configuration but enlarged. The ferguson to white matter difference is maintained normal. Bone windows reveal no calvarial abnormality. There is no scalp soft tissue abnormality. There is mucoperiosteal thickening bilateral maxillary and minimal ethmoid sinuses. Rest the paranasal sinuses and mastoid air cells are well-aerated. Facial bones: There is mild mucoperiosteal thickening bilateral maxillary and middle ethmoid sinuses. Lamina papyracea, cribriform plate and the bony sinus nowak are intact. Visualized bilateral optic globes, optic nerve and the bony orbits are intact there is no periorbital or intraorbital soft tissue swelling. There are no fractures involving nasal bones. The maxillofacial bones and the soft tissues are normal. Bilateral TM joints are symmetrical and normal. No fracture involving the mandible. Cervical spine: There is mild reversal of cervical lordosis. The vertebral heights and alignment is normal. Is loss of C4-C5, C5-C6 and C6-C7 disc heights with moderate ventral spondylosis. The craniovertebral junction and the C1-C2 alignment is normal. There is no visible acute fracture, dislocation or subluxation seen. The lung apices are clear. The tracheal airway is widely patent. There is a calcified and noncalcified nodule in the left thyroid lobe and a moderate size 1 cm nodule right thyroid lobe. The prevertebral and paravertebral soft tissues are normal. CT/CT head/brain wo IV con IMPRESSION: 1. No acute intracranial process seen. 2. Age-related cerebral volume loss. 3. No acute maxillofacial, nasal or mandibular fracture. There is bilateral maxillary and minimal ethmoid sinus inflammatory changes. 4. Reversal of cervical lordosis with degenerative disc changes as described above. There is no visible acute fracture, dislocation or subluxation seen. Moderate ventral spondylosis. I reviewed records from the following: ER notes Ortho notes Pain management notes Assessment & Plan Assessment & Plan (1) Sacroiliac joint dysfunction of right side: Code(s): M53.3 - Sacrococcygeal disorders, not elsewhere classified Category: Medical (2) Myofascial pain: Code(s): M79.18 - Myalgia, other site Category: Medical (3) Frequent falls: Code(s): R29.6 - Repeated falls Category: Medical Plan On exam, tender on right SI joint and trapezius. Discussed how those are different and separate from cervical or lumbar spine. Frequent falls with history of daily seizures. Referring to PT: work on right SI joint, myofascial pain on upper trapezius, gait and fall prevention. Will do lumbar xrays today. Assessment and plan discussed with patient, and patient was agreeable. All questions were answered thoroughly. Follow-up 3 months. Tracee Vazquez MD, MIN Board Certified, [place] Board [employer] Physical Medicine and Rehabilitation (ABPMR) Board Certified, [place] Board of Electrodiagnostic Medicine (ABEM) Orders: Orders PT Evaluation and Treatment Today M53.3 - Sacrococcygeal disorders, not elsewhere classified, M79.18 - Myalgia, other site, R29.6 - Repeated falls XR lumbar spine 2-3V Today M54.9 - Dorsalgia, unspecified Coding Level of Care Code New Pt Level 4 (88218) Diagnoses Sacroiliac joint dysfunction of right side M53.3 Myofascial pain M79.18 Frequent falls R29.6
[2023-11-01 11:02] VITALS: BMI 35.0
== END 2023-11-01 11:31 | disposition home or self-care (01) ==
LOC: HO.HOS 10:47
PROVIDERS: PCP Internal Medicine; Visit Provider Physical Medicine & Rehabilitation
DX: M53.3 Sacrococcygeal disorders, not elsewhere classified (principal); M79.18 Myalgia, other site; R29.6 Repeated falls
CPT/HCPCS: 99204

== ENCOUNTER 2023-11-22 09:02 | Outpatient (AMB) | payer OTHER, SELFPAY ==
[2023-11-22 09:12] VITALS: BMI 35.0
--- NOTE | 2023-11-22 09:12 | A.OFFVIS_ITS ---
Vital Signs 11/22/23 09:12 Height 5 ft 4 in Weight 204 lb BMI 35.0 Intake Visit Reasons: ov-Spine/lower back pain Intake Note: Kenya is a 53 year old female who presents today for a follow up of her right SI joint and trapezius myofacial pain. Patient reports that she is having continue pain. She tried getting in touch with PT in [place] but states that they didnt answer so she has not set up appointments. I contacted the PT office, gave them an alternative number for this patient and asked that they contact patient for scheduling. Allergies baclofen Allergy (Intermediate, Verified 11/01/23 11:11) Dizziness latex [LATEX] Allergy (Unknown, Verified 11/01/23 11:11) RASH codeine [Codeine] Adverse Reaction (Unknown, Verified 11/01/23 11:11) NAUSEOUS HPI Comments Details: First visit 11/01/23 - History of a seizure disorder and chronic headaches, gait is somewhat unsteady at baseline, who fell at home 08/08/23, landing on her knees, her hands, and her face. Presented to ER. Negative CT scan of the head, face, and cervical spine. Negative x-rays of both knees as well as the hands and the wrists bilaterally. Some minor skin injuries. She had fallen once after again. She says she gets off balance and dizzy. She gets seizures 1-3 days, says controlled by medicine, managed by Dr. Conrad in [facility]. Sees a headache specialist from [place] with Botox. Chronic back pain, roughly 10 years. Pain on posterior neck and points to sacral area, constant, bothers her with almost any activity. Lower back could radiate to thighs but not lower than knees. No numbness. The neck pain does not radiate. No numbness. Treatment done so far: topical last physical therapy - a year ago, for leg strengthening 11/22/23 - No falls last seen. No seizures. No ER visit. Pain same. No PT done yet, claims she has not received any call. Lumbar xrays to be discussed today. She is forgetful. Last visit she had two pain areas - right upper trapezius and right SI joint. Right neck still bothers her. Forgets that she had CT scan done already. Reversal of cervical lordosis with degenerative disc changes as described above. There is no visible acute fracture, dislocation or subluxation seen. Moderate ventral spondylosis. 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 Patient was appropriately oriented. Forgetful. MSK: No specific abnormalities found on inspection of the spine and all extremities. No pain with palpation over the lumbar area. Tenderness is over right SI joint. Tight upper trapezius. Lumbar ROM was full. Straight-leg raising test negative. FABERE test negative. Neurological: Negative pronator drift. Prasad?s negative bilaterally. Babinski was down going bilaterally. Clonus was negative. 5/5 on BUE and BLE. Results Reviewed Results Reviewed: Ordering Physician: Tracee Campbell Date of Service: 11/01/23 Procedure(s): XR lumbar spine 2-3V Accession Number(s): [id number] cc: Song Cooney MD; Tracee Campbell~ EXAMINATION: XR LUMBOSACRAL SPINE CLINICAL INFORMATION: Back pain. COMPARISON: None available. TECHNIQUE: Three views of the lumbosacral spine. FINDINGS: Levoscoliosis of the lumbar spine. Facet arthritis in the lower lumbar spine. Bilateral sacroiliac joints are symmetric. Lumbar vertebral body heights are preserved. Multilevel lumbar spondylosis with advanced degenerative changes and loss of disc space height at L5 on S1. XR/XR lumbar spine 2-3V IMPRESSION: Multilevel lumbar spondylosis with advanced degenerative changes and loss of disc space height at L5 on S1. Ordering Physician: Sierra Rhodes Date of Service: 08/08/23 Procedure(s): CT head/brain wo IV con Accession Number(s): [id number] cc: Physician,Unknown ; Sierra Rhodes~ EXAMINATION: CT, brain, CT cervical spine and CT facial bones. CLINICAL INDICATIONS: Fall, pain. COMPARISON: CT brain 07/31/2020. TECHNIQUE: 5 mm thin axial and reformatted 2 mm thin sagittal and coronal images of brain were obtained. DLP 714. Subsequently axial 3 mm thin and reformatted 2 mm thin sagittal and coronal images of cervical spine were obtained. Lastly axial 3 mm thin and reformatted 1.5 mm thin sagittal and coronal images of facial bones were obtained. DLP 714. This CT examination was performed using dose optimization technique as appropriate, variously including the following: Automated exposure control Adjustment of MA and/or KV according to patient size(this includes techniques or standardized protocols for targeted exams where dose is matched to indication/reason for exam; extremities or head. Use of iterative reconstruction techniques. FINDINGS: Brain: There is no acute intra-axial, extra-axial bleed, masses or midline shift. There is no acute infarction in evolution. There is no edema. The lateral ventricles are symmetrical in size and configuration but enlarged. The ferguson to white matter difference is maintained normal. Bone windows reveal no calvarial abnormality. There is no scalp soft tissue abnormality. There is mucoperiosteal thickening bilateral maxillary and minimal ethmoid sinuses. Rest the paranasal sinuses and mastoid air cells are well-aerated. Facial bones: There is mild mucoperiosteal thickening bilateral maxillary and middle ethmoid sinuses. Lamina papyracea, cribriform plate and the bony sinus nowak are intact. Visualized bilateral optic globes, optic nerve and the bony orbits are intact there is no periorbital or intraorbital soft tissue swelling. There are no fractures involving nasal bones. The maxillofacial bones and the soft tissues are normal. Bilateral TM joints are symmetrical and normal. No fracture involving the mandible. Cervical spine: There is mild reversal of cervical lordosis. The vertebral heights and alignment is normal. Is loss of C4-C5, C5-C6 and C6-C7 disc heights with moderate ventral spondylosis. The craniovertebral junction and the C1-C2 alignment is normal. There is no visible acute fracture, dislocation or subluxation seen. The lung apices are clear. The tracheal airway is widely patent. There is a calcified and noncalcified nodule in the left thyroid lobe and a moderate size 1 cm nodule right thyroid lobe. The prevertebral and paravertebral soft tissues are normal. CT/CT head/brain wo IV con IMPRESSION: 1. No acute intracranial process seen. 2. Age-related cerebral volume loss. 3. No acute maxillofacial, nasal or mandibular fracture. There is bilateral maxillary and minimal ethmoid sinus inflammatory changes. 4. Reversal of cervical lordosis with degenerative disc changes as described above. There is no visible acute fracture, dislocation or subluxation seen. Moderate ventral spondylosis. I reviewed records from the following: ER notes Ortho notes Pain management notes Assessment & Plan Assessment & Plan (1) Myofascial pain: Code(s): M79.18 - Myalgia, other site Category: Medical (2) Sacroiliac joint dysfunction of right side: Code(s): M53.3 - Sacrococcygeal disorders, not elsewhere classified Category: Medical (3) Migraine: Code(s): G43.909 - Migraine, unspecified, not intractable, without status migrainosus Category: Medical Qualifiers: Intractability: not intractable Migraine type: unspecified Status migrainosus presence: without status migrainosus Qualified Code(s): G43.909 - Migraine, unspecified, not intractable, without status migrainosus Plan Continues to have tightness on upper trapezius and tenderness around right SI joint. She has no signs of cervical myelopathy or radiculopathy. Neurologic exam nonfocal. She is forgetful though. Highly encouraged to continue our plan of physical therapy: work on right SI joint, myofascial pain on upper trapezius, gait and fall prevention. Referring her to Dr. Caro, neurology, for consideration of botulinum toxin injection for migraine. Patient has had this previously from [facility] with good results. Assessment and plan discussed with patient, and patient was agreeable. All questions were answered thoroughly. Follow-up 3 months. Tracee Vazquez MD, MIN Board Certified, [place] Board [employer] Physical Medicine and Rehabilitation (ABPMR) Board Certified, [place] Board [employer] Electrodiagnostic Medicine (ABEM) Orders: Referrals Neurology Referral G43.909 - Migraine, unspecified, not intractable, without status migrainosus Patient Instructions: * Coding Level of Care Code Est Pt Level 4 (88266) Diagnoses Myofascial pain M79.18 Sacroiliac joint dysfunction of right side M53.3 Migraine without status migrainosus, not intractable, unspecified migraine type G43.909 Intractability: not intractable Migraine type: unspecified Status migrainosus presence: without status migrainosus
== END 2023-11-22 09:45 | disposition home or self-care (01) ==
PROVIDERS: PCP Internal Medicine; Visit Provider Physical Medicine & Rehabilitation
DX: M79.18 Myalgia, other site (principal); M53.3 Sacrococcygeal disorders, not elsewhere classified; G43.909 Migraine, unspecified, not intractable, without status migrainosus
CPT/HCPCS: 99214

== ENCOUNTER → 2023-11-22 09:02 | Outpatient (BNVA) | payer OTHER, SELFPAY | PROVIDERS: PCP Internal Medicine; Visit Provider Physical Medicine & Rehabilitation | DX: M79.18 Myalgia, other site (principal); M53.3 Sacrococcygeal disorders, not elsewhere classified; G43.909 Migraine, unspecified, not intractable, without status migrainosus | CPT/HCPCS: 99212 ==

== ENCOUNTER 2024-01-10 09:58 | Outpatient (AMB) | payer OTHER, SELFPAY ==
--- NOTE | 2024-01-10 10:03 | A.OFFVIS_ITS ---
Vital Signs 01/10/24 10:04 Height 5 ft 4 in Weight 219 lb BMI 37.6 Handedness Right Intake Visit Reasons: O/V follow up for her neck pain/curvature Intake Note: Kenya is a 53 year old right hand dominant female who presents to the office today for a follow up for neck pain/curvature. Patient states she is having on going sharp pains in her neck. She has an appointment next week with neurology and also had an appointment with PT but went to the wrong place so she had to reschedule for this week. Patient would like to talk about possible injections today. Allergies baclofen Allergy (Intermediate, Verified 01/10/24 10:09) Dizziness latex [LATEX] Allergy (Unknown, Verified 01/10/24 10:09) RASH codeine [Codeine] Adverse Reaction (Unknown, Verified 01/10/24 10:09) NAUSEOUS Medication List - Last Reconciled 01/10/24 by Tracee Vazquez MD amlodipine 2.5 mg PO DAILY atorvastatin 10 mg PO DAILY betamethasone dipropionate 0.05% 1 appl topical BID divalproex 250 mg PO BID gabapentin mg PO lamotrigine 200 mg PO BID magnesium oxide 400 mg PO DAILY meclizine 25 mg PO BID PRN omeprazole 40 mg PO DAILY propranolol 40 mg PO BID riboflavin (vitamin B2) 400 mg PO DAILY HPI Comments Details: First visit 11/01/23 - History of a seizure disorder and chronic headaches, gait is somewhat unsteady at baseline, who fell at home 08/08/23, landing on her knees, her hands, and her face. Presented to ER. Negative CT scan of the head, face, and cervical spine. Negative x-rays of both knees as well as the hands and the wrists bilaterally. Some minor skin injuries. She had fallen once after again. She says she gets off balance and dizzy. She gets seizures 1-3 days, says controlled by medicine, managed by Dr. Conrad in [facility]. Sees a headache specialist from [place] with Botox. Chronic back pain, roughly 10 years. Pain on posterior neck and points to sacral area, constant, bothers her with almost any activity. Lower back could radiate to thighs but not lower than knees. No numbness. The neck pain does not radiate. No numbness. Treatment done so far: topical last physical therapy - a year ago, for leg strengthening 11/22/23 - No falls last seen. No seizures. No ER visit. Pain same. No PT done yet, claims she has not received any call. Lumbar xrays to be discussed today. She is forgetful. Last visit she had two pain areas - right upper trapezius and right SI joint. Right neck still bothers her. Forgets that she had CT scan done already. Reversal of cervical lordosis with degenerative disc changes as described above. There is no visible acute fracture, dislocation or subluxation seen. Moderate ventral spondylosis. Still with right lower back. Xray below. 01/10/24 - No seizures. No falls. Today hurting on posterior neck. 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 Patient was appropriately oriented. Forgetful. Poor historian. MSK: No specific abnormalities found on inspection of the spine and all extremities. Tight upper trapezius, more on left. Tender on area of C7 level. Spurling sign negative. No scapular winging. Neurological: Negative pronator drift. Prasad?s negative bilaterally. Babinski was down going bilaterally. Clonus was negative. 5/5 on BUE and BLE. Results Reviewed Results Reviewed: Ordering Physician: Tracee Campbell Date of Service: 11/01/23 Procedure(s): XR lumbar spine 2-3V Accession Number(s): [id number] cc: Song Cooney MD; Tracee Campbell~ EXAMINATION: XR LUMBOSACRAL SPINE CLINICAL INFORMATION: Back pain. COMPARISON: None available. TECHNIQUE: Three views of the lumbosacral spine. FINDINGS: Levoscoliosis of the lumbar spine. Facet arthritis in the lower lumbar spine. Bilateral sacroiliac joints are symmetric. Lumbar vertebral body heights are preserved. Multilevel lumbar spondylosis with advanced degenerative changes and loss of disc space height at L5 on S1. XR/XR lumbar spine 2-3V IMPRESSION: Multilevel lumbar spondylosis with advanced degenerative changes and loss of disc space height at L5 on S1. Ordering Physician: Sierra Rhodes Date of Service: 08/08/23 Procedure(s): CT head/brain wo IV con Accession Number(s): [id number] cc: Physician,Unknown ; Sierra Rhodes~ EXAMINATION: CT, brain, CT cervical spine and CT facial bones. CLINICAL INDICATIONS: Fall, pain. COMPARISON: CT brain 07/31/2020. TECHNIQUE: 5 mm thin axial and reformatted 2 mm thin sagittal and coronal images of brain were obtained. DLP 714. Subsequently axial 3 mm thin and reformatted 2 mm thin sagittal and coronal images of cervical spine were obtained. Lastly axial 3 mm thin and reformatted 1.5 mm thin sagittal and coronal images of facial bones were obtained. DLP 714. This CT examination was performed using dose optimization technique as appropriate, variously including the following: Automated exposure control Adjustment of MA and/or KV according to patient size(this includes techniques or standardized protocols for targeted exams where dose is matched to indication/reason for exam; extremities or head. Use of iterative reconstruction techniques. FINDINGS: Brain: There is no acute intra-axial, extra-axial bleed, masses or midline shift. There is no acute infarction in evolution. There is no edema. The lateral ventricles are symmetrical in size and configuration but enlarged. The ferguson to white matter difference is maintained normal. Bone windows reveal no calvarial abnormality. There is no scalp soft tissue abnormality. There is mucoperiosteal thickening bilateral maxillary and minimal ethmoid sinuses. Rest the paranasal sinuses and mastoid air cells are well-aerated. Facial bones: There is mild mucoperiosteal thickening bilateral maxillary and middle ethmoid sinuses. Lamina papyracea, cribriform plate and the bony sinus nowak are intact. Visualized bilateral optic globes, optic nerve and the bony orbits are intact there is no periorbital or intraorbital soft tissue swelling. There are no fractures involving nasal bones. The maxillofacial bones and the soft tissues are normal. Bilateral TM joints are symmetrical and normal. No fracture involving the mandible. Cervical spine: There is mild reversal of cervical lordosis. The vertebral heights and alignment is normal. Is loss of C4-C5, C5-C6 and C6-C7 disc heights with moderate ventral spondylosis. The craniovertebral junction and the C1-C2 alignment is normal. There is no visible acute fracture, dislocation or subluxation seen. The lung apices are clear. The tracheal airway is widely patent. There is a calcified and noncalcified nodule in the left thyroid lobe and a moderate size 1 cm nodule right thyroid lobe. The prevertebral and paravertebral soft tissues are normal. CT/CT head/brain wo IV con IMPRESSION: 1. No acute intracranial process seen. 2. Age-related cerebral volume loss. 3. No acute maxillofacial, nasal or mandibular fracture. There is bilateral maxillary and minimal ethmoid sinus inflammatory changes. 4. Reversal of cervical lordosis with degenerative disc changes as described above. There is no visible acute fracture, dislocation or subluxation seen. Moderate ventral spondylosis. I reviewed records from the following: ER notes Ortho notes Pain management notes Assessment & Plan Assessment & Plan (1) Myofascial pain: Code(s): M79.18 - Myalgia, other site Category: Medical (2) Migraine: Code(s): G43.909 - Migraine, unspecified, not intractable, without status migrainosus Category: Medical Qualifiers: Intractability: not intractable Migraine type: unspecified Status migrainosus presence: without status migrainosus Qualified Code(s): G43.909 - Migraine, unspecified, not intractable, without status migrainosus (3) Cervicogenic headache: Code(s): G44.86 - Cervicogenic headache Plan Poor historian. On previous visit I have referred her to Dr. Caro to evaluate and treat for migraines, consider botulinum toxin injections. I thought Botox would also help with her cervicogenic headaches. However, she had declined appointments with Dr. Caro because she preferred to go to [facility]. Then she tells me today that [facility] does not accept her insurance. After much discussion, she then informs us that she has another appointment with another neurologist but she can not remember the name. I requested for her to provide us with the name and appointment date so we can help facilitate. Discussed options for treatment of neck pain. Discussed that cervical injections are done under imaging and I would have to refer to pain management. Offered to do trigger point injections for the tightness on trapezius that could help with the cervicogenic headache. Patient prefers cervical spine injections, therefore she will be referred to pain management. Since last time I saw her, she has had no seizures and no falls. She did not complain of any back pain or SI joint pain today. Assessment and plan discussed with patient, and patient was agreeable. All questions were answered thoroughly. Follow-up as needed Tracee Vazquez MD, MIN Board Certified, [place] Board of [employer] Medicine and Rehabilitation (ABPMR) Board Certified, [place] Board of Electrodiagnostic Medicine (ABEM) Orders: Referrals Pain Management Referral G43.909 - Migraine, unspecified, not intractable, without status migrainosus, G44.86 - Cervicogenic headache, M79.18 - Myalgia, other site Coding Level of Care Code Est Pt Level 4 (88116) Diagnoses Myofascial pain M79.18 Migraine without status migrainosus, not intractable, unspecified migraine type G43.909 Intractability: not intractable Migraine type: unspecified Status migrainosus presence: without status migrainosus Cervicogenic headache G44.86
[2024-01-10 10:04] VITALS: BMI 37.6
== END 2024-01-10 10:31 | disposition home or self-care (01) ==
PROVIDERS: PCP Internal Medicine; Visit Provider Physical Medicine & Rehabilitation
DX: M79.18 Myalgia, other site (principal); G43.909 Migraine, unspecified, not intractable, without status migrainosus; G44.86 Cervicogenic headache
CPT/HCPCS: 99213

== ENCOUNTER → 2024-01-10 09:58 | Outpatient (BNVA) | payer OTHER, SELFPAY | PROVIDERS: PCP Internal Medicine; Visit Provider Physical Medicine & Rehabilitation | DX: M79.18 Myalgia, other site (principal); G43.909 Migraine, unspecified, not intractable, without status migrainosus; G44.86 Cervicogenic headache | CPT/HCPCS: 99212 ==

== ENCOUNTER 2024-01-17 10:51 | Outpatient (AMB) | payer OTHER, SELFPAY ==
--- NOTE | 2024-01-17 10:59 | MHC.OFFVIS ---
Intake Visit Reasons: OV - B/L knee OA, last inj 09/21/23 Intake Note: Kenya is a 53 year old female who presents today for a follow up for her Bilateral knee OA, last injections 09/21/23. Patient reports that these injections werehelpful and she would like to repeat injections today. Allergies baclofen Allergy (Intermediate, Verified 01/10/24 10:09) Dizziness latex [LATEX] Allergy (Unknown, Verified 01/10/24 10:09) RASH codeine [Codeine] Adverse Reaction (Unknown, Verified 01/10/24 10:09) NAUSEOUS HPI HPI OV - B/L knee OA, last inj 09/21/23: Details: 53-year-old female who presents in the office today for a follow-up of bilateral knee osteoarthritis. I last saw the patient in the office on 09/21/2023 when she was given cortisone injections in the bilateral knees. ? ? While in the office today, the patient reports the injections were helpful. She is interested in repeating the injections bilaterally today. 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 No ecchymosis, erythema, or joint effusion. No tenderness to palpation to the medial or lateral joint lines. Full knee extension and flexion. Crepitus felt with ROM, right worse then left. NVI. Office Procedures Joint Injection/Drain Joint Injection/Drain Primary Site: left knee Secondary Site: right knee Prep: site was prepped using aseptic technique, ethochloride spray was applied and injection warnings given Injected: 80 mg of, DepoMedrol, with 8 mL of (2% plain lido ) and in the joint Approach Used: anterolateral Procedure: The patient tolerated the procedure well, but had some pain with the injection and there was some relief with the local anesthesia Coding 02243 - Large joint Procedure code (CPT) selection complete Assessment & Plan Assessment & Plan (1) Osteoarthritis of right knee: Code(s): M17.11 - Unilateral primary osteoarthritis, right knee Category: Medical Qualifiers: Osteoarthritis type: unspecified Qualified Code(s): M17.11 - Unilateral primary osteoarthritis, right knee (2) Osteoarthritis of left knee: Code(s): M17.12 - Unilateral primary osteoarthritis, left knee Category: Medical Qualifiers: Osteoarthritis type: unspecified Qualified Code(s): M17.12 - Unilateral primary osteoarthritis, left knee Plan Ms. Awad is a 53-year-old female who presents in the office today for a follow-up of bilateral knee osteoarthritis. I last saw the patient in the office on 09/21/2023 when she was given cortisone injections in the bilateral knees. ? ? While in the office today, the patient reports the injections were helpful. She is interested in repeating the injections bilaterally today.? ? The patient was offered a cortisone injection in the bilateral knees with 80 mg of DepoMedrol. The patient was explained the risks, benefits, and alternatives to receiving this injection. After receiving consent for the injection, the patient had the procedure done while in the office today. The patient tolerated the procedure well with no complications.? Patient Instructions: Scribed by Joie Francois infertility medical assistant, for Ana Flores PA-C on 01/17/2024 at 11:27 am, EST.? Coding Level of Care Code Est Pt Level 3 (10323) Diagnoses Osteoarthritis of right knee, unspecified osteoarthritis type M17.11 Osteoarthritis type: unspecified Osteoarthritis of left knee, unspecified osteoarthritis type M17.12 Osteoarthritis type: unspecified CPT Codes Coding - 89950 Large joint: 59600 - Large joint ([id number])
== END 2024-01-17 11:18 | disposition home or self-care (01) ==
PROVIDERS: PCP Internal Medicine; Visit Provider Physician Assistant
DX: M17.0 Bilateral primary osteoarthritis of knee (principal)
CPT/HCPCS: 20610

== ENCOUNTER → 2024-01-17 10:51 | Outpatient (BNVA) | payer OTHER, SELFPAY | PROVIDERS: PCP Internal Medicine; Visit Provider Physician Assistant | DX: M17.0 Bilateral primary osteoarthritis of knee (principal) | CPT/HCPCS: 20610; J1010 ==

== ENCOUNTER 2024-02-11 09:09 | Outpatient (AMB) | payer OTHER, SELFPAY ==
--- NOTE | 2024-02-11 09:13 | MHC.OFFVIS ---
Vital Signs 02/11/24 09:16 Height 5 ft 4 in Weight 219 lb BMI 37.6 BP 140/78 H Blood Pressure Location Lt brachial Position Sitting Respiration 14 Pulse 67 Pulse Source Pulse Oximeter Pulse Oximetry (%) 95 Oxygen Delivery Method Room Air Intake Visit Reasons: Migraine CARIE 09/23/21 Allergies baclofen Allergy (Intermediate, Verified 02/11/24 09:16) Dizziness latex [LATEX] Allergy (Unknown, Verified 02/11/24 09:16) RASH codeine [Codeine] Adverse Reaction (Unknown, Verified 02/11/24 09:16) NAUSEOUS Medication List - Last Reconciled 02/11/24 by Jacy Barroso LPN amlodipine 2.5 mg PO DAILY atorvastatin 10 mg PO DAILY betamethasone dipropionate 0.05% 1 appl topical BID divalproex 250 mg PO BID gabapentin mg PO lamotrigine 200 mg PO BID meclizine 25 mg PO BID PRN omeprazole 40 mg PO DAILY propranolol 40 mg PO BID riboflavin (vitamin B2) 400 mg PO DAILY HPI HPI Migraine CARIE 09/23/21: Details: 53-year-old female who presents today to the office for migraine. She was last seen in August 2021. She was referred to [facility], but she had not visited them. She has previously had three rounds of Botox injections since last year, and these provided 90% relief for her headache symptoms for three months at a time. Her last Botox injection was about six months ago. She states that her migraine is constant in nature and mostly localized on the back side of the head. She lay down and applied ice to her face for some relief. She reports neck and back pain. She also started physical therapy for her back and legs. She is not doing any physical therapy for neck pain.?She occasionally gets seizures, which are controlled with medication. She has been seeing an epilepsy specialist in [place]. 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 Alert and oriented. Mood and affect appropriate. Follows and participates in conversation appropriately. Respiratory effort is unlabored. Able to transition from sit to stand unassisted. Ambulates with bilaterally normal heel strike and toe off. Results Reviewed Results Reviewed: No imaging is available for review. Assessment & Plan Assessment & Plan (1) Chronic cluster headache, intractable: Code(s): G44.021 - Chronic cluster headache, intractable Category: Medical (2) Migraine: Code(s): G43.909 - Migraine, unspecified, not intractable, without status migrainosus Category: Medical Qualifiers: Migraine type: unspecified Status migrainosus presence: without status migrainosus Intractability: not intractable Qualified Code(s): G43.909 - Migraine, unspecified, not intractable, without status migrainosus (3) Sacroiliac joint dysfunction of right side: Code(s): M53.3 - Sacrococcygeal disorders, not elsewhere classified Category: Medical Plan Discussed continuing physical therapy, Botox injections, and potentially peripheral nerve stimulation as possible treatment options. I advised the patient to continue physical therapy as scheduled. We will resuming her Botox injections for migraine. She has previously had three rounds of Botox injections since last year, and these provided 90% relief from her headache symptoms for three months at a time. The last dose of Botox injection was six months ago. Discussed the risks and benefits of the procedure with the patient in detail. All questions were answered. The patient is on board with the plan. Informed the patient that insurance approval is required. We will file a PA for approval and keep her updated. Justification for interventional therapy: ? Patient with average pain > 6/10 ? Patient has exhausted conservative therapy . Patient has a good understanding of their pain condition and has appropriate mental and social support Scribed for Dr. King by Leandro Miguel, medical records specialist, on 02/11/2024. I, Dr. King, have personally reviewed and agree with the information entered by the scribe. Coding Level of Care Code Est Pt Level 4 (00036) Diagnoses Chronic cluster headache, intractable G44.021 Migraine without status migrainosus, not intractable, unspecified migraine type G43.909 Migraine type: unspecified Status migrainosus presence: without status migrainosus Intractability: not intractable Sacroiliac joint dysfunction of right side M53.3
[2024-02-11 09:16] VITALS: BP 140/78; PULSE 67; RESP 14; O2SAT 95; BMI 37.6
== END 2024-02-11 09:45 | disposition home or self-care (01) ==
LOC: HO.PMC 09:09
PROVIDERS: PCP Internal Medicine; Visit Provider Internal Medicine
DX: G44.021 Chronic cluster headache, intractable (principal); G43.909 Migraine, unspecified, not intractable, without status migrainosus; M53.3 Sacrococcygeal disorders, not elsewhere classified
CPT/HCPCS: 99214

== ENCOUNTER → 2024-02-11 09:09 | Outpatient (BNVA) | payer OTHER, SELFPAY | PROVIDERS: PCP Internal Medicine; Visit Provider Internal Medicine | DX: G44.021 Chronic cluster headache, intractable (principal); G43.909 Migraine, unspecified, not intractable, without status migrainosus; M53.3 Sacrococcygeal disorders, not elsewhere classified | CPT/HCPCS: 99212 ==

== ENCOUNTER 2024-02-25 13:00 | Outpatient (RCR) | payer OTHER, SELFPAY ==
[2024-01-30 09:44] VITALS: BP 142/72; PULSE 60; O2SAT 95
--- NOTE | 2024-01-30 12:43 | MHC.PT.EP ---
[facility] [place] Office [place] Office [place] Office [address] [phone] F: [phone] F: [phone] F: [phone] F: [phone] Physical Therapy Plan of Care Date of Evaluation: 01/30/24 Date of Surgery: Diagnosis: Rt SI JOINT, MYOFASCIAL PAIN UPPER TRAP, GAIT AND FALLS Assessment: 53 YO FEMALE REF TO PT W DX OF Rt SI Jt PAIN AND UT MYOFASCIAL PAIN W H/O FALLS AND UNSTEADY GAIT, WITH SEVERE KNEE OA. SHE IS NOT USING ANY ASST DEVICES, ADMITS TO FALLS IN HER KITCHEN AND DESC STAIRS, AND WITH A H/O SEIZURES, SHE IS NOT DRIVING. THE Pt HAS DECR POSTURAL AWARENESS (W EXCESSIVE LUMBAR LORDOSIS), LIMITED TRUNK AROM, (+) STRENGTH DEFICITS IN POST RC/SCAP MM/ LUMBOPELVIS REGION; (+) TISSUE TENSION IN HER Lt > Rt UT WELL CHIQUITA LUMBAR PS MM, AND FLUCTUATING PAIN. FUNCTIONALLY, THE Pt HAS ALTERED GAIT MECH, INCR UEs COMPEN W TRANSFERS, AND DECR SAFETY W STAIR NAVIGATION. WE DISCUSSED THE POC AND Pt IS IUN AGREEMENT , INITIATING A HEP AND ADDRESSING THE ABOVE FINDINGS CAUTIOUSLY. Frequency and Duration: The patient will be seen 2 x WK x 5 WKS Short Term Goals: DECREASE LS AND CHIQUITA UT PAIN TO 3-4/10 IMPROVE Pt'S POSTURE TO DECR NECK/UT/ LS PAIN INITIATE HEP-> LUMBOSACRAL AND LEs STRENGTH IMPROVED SAFETY AWARENESS W ADLs Inventory Control Planner Goals: Pt INDEP W HEP Pt DEMON IMPROVED FUNCT MOB AND MORE EFFICIENT GAIT MECH W LEVEL GROUND AND ON STAIRS W/O LOB LEs AND MID BACK STRENGTH IMPROVED BY 1 GRADE Treatment Plan: Modalities to reduce pain, spasms and effusion. Manual therapy to restore motion and function. Therapeutic exercise to improve strength and flexibility. Neuromuscular re-education for posture and balance. Therapeutic activities to return to functional activities of daily living. Electronically signed by: DALLIN PATINO,PT Please sign and return to therapist. Thank you for your referral.
--- NOTE | 2024-03-28 11:50 | MHC.PT.DC ---
[facility] [place] [facility] [place] [facility] [place] [facility] [address] Yesenia Lloyd [address] [phone] F: [phone] F: [phone] F: [phone] F: [phone] Physical Therapy Discharge Report Diagnosis: Rt SI JOINT, MYOFASCIAL PAIN UPPER TRAP, GAIT AND FALLS Date of Surgery: Date of Evaluation: 01/30/24 Date of Discharge: 03/28/24 Treatments to Date: 4 Cancellations to Date: 2 No Shows to Date: 0 Discharge Status: Improved Function Independent with HEP Patient Elected to Stop Discharge Summary: PANFILO BENEFITTED FROM PT TO IMPROVE HER AWARENESS OF HABITUAL HYPERLORDOSIS, DEV A HEP, AND IMPROVE HER DYNAMIC BALANCE W ADLs. SHE DEMON IMPROVED EASE OF FUNCTIONAL MOBILITY W TRANSFERS AND BED MOB- SHE APPEARED MOTIVATED W HER HEP. A FORMAL PT REASSESSMENT WAS NOT PERF THE Pt CANC HER LAST 2 APPTS. Electronically signed by: DALLIN PATINO,PT Please sign and return to therapist. Thank you for your referral.
== END 2024-03-28 11:50 | disposition home or self-care (01) ==
LOC: HO.PT 13:00
PROVIDERS: PCP Internal Medicine; Visit Provider Physical Medicine & Rehabilitation
DX: M53.3 Sacrococcygeal disorders, not elsewhere classified (principal); M79.18 Myalgia, other site; R29.6 Repeated falls
CPT/HCPCS: 97110; 97112; 97162

== ENCOUNTER 2024-03-06 08:15 | Outpatient (AMB) | payer OTHER, SELFPAY ==
--- NOTE | 2024-03-06 08:23 | A.OFFPC_ITS ---
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 Intake Note: patient here for new patient visit Assayer Required: No Is last menstrual period known: No Post menopausal: No Patient : No Allergies baclofen Allergy (Intermediate, Verified 03/06/24 09:01) Dizziness latex [LATEX] Allergy (Unknown, Verified 03/06/24 09:01) RASH codeine [Codeine] Adverse Reaction (Unknown, Verified 03/06/24 09:01) NAUSEOUS Medication List - Last Reviewed 03/06/24 by Karen Messer amlodipine-benazepril 10-20 mg 1 cap PO DAILY atorvastatin 10 mg PO DAILY B-complex with vitamin C 1 tab PO DAILY betamethasone dipropionate 0.05% 1 appl topical BID divalproex 250 mg PO BID gabapentin 1,200 mg PO TID lamotrigine 200 mg PO BID meclizine 25 mg PO BID PRN omeprazole 40 mg PO DAILY propranolol 40 mg PO BID Tobacco use date assessed: 03/06/24 Dental Screening Dental Screen Date: 03/06/24 Did you have a dental visit in the last 12 months?: Yes Did you have a dental problem in the last 6 months where you did not have access to dental care?: No Was dental information given to patient?: Patient has dentist HPI HPI Comments History of Present Illness Details New patient Prior PCP:?[facility] Dr. Richards Last office visit/CPE: About 4 months ago Acute issue(s): Hypertension -She is on Amlodipine 2.5 mg daily, bal zepril, and Propranolol 40 mg twice daily GERD -She is on Omeprazole 40 mg daily HLD -She is on Atorvastatin 10 mg daily Seizures -She is on Divalproex 250 mg (2 tabs) tw ice daily, Lamotrigine 200 mg twice daily, and Gabapentin 600 mg ( 2 tabs) three times daily She notes that she generally eats healthy and sleep well. She does not exercise routinely She notes that she had a CT of her spine which revealed incidental findings of pulmonary nodules. She was followed by a counter dish carrier at [facility] until last month. However, her health plan stopped coverage. Therefore, she is requesting a new counter dish carrier She notes that she has been feeling anxious daily since she her migraines and seizures started in 2014. She denies depressive symptoms. She denies SI/HI PMHx: HTN, HLD, GERD, migraines, seizures. OA bilateral knees SurgHx: Total hysterectomy, carpal tunnel release surgery bilaterally FHx: Mom: Alcohol abuse, dementia, laron's disease, HTN, HLD. Dad: Alcohol abuse, laron's disease. MGF: Alcohol abuse, leukemia. MGM: Mental illness. She has a brother and sister who of huntingtion's disease 1 year ago. She has brother who from a heart attack 9 months ago SocHx: Former smoker, quit over 20 years ago. She does not drink alcohol. No recreational drugs Last colonoscopy was 2 years ago; normal. She does not recall where she got colonoscopy done. She will bring colonoscopy record Last mammogram 2 years ago: normal She notes that she is up-to-date on the shingles vaccines Last tetanus vaccine was 4 months ago She is up-to-date on covid and flu vaccines Last eye exam was 2 years ago. She notes that her health plan no longer covers her eye doctor She is followed by Dr Cornad, neurologist, [facility]; she is followed yearly She is [place] [facility] [place] of [place] knees She is currently doing [place] for [place] [facility] She is followed [place] [facility] [place] for her migraines [facility] Medical History (Updated 03/06/24 @ 10:23 by Whit Thakur CNP) Chronic cluster headache, intractable Seizure disorder Migraine Acid reflux HTN (hypertension) Family History (Updated 03/06/24 @ 08:36 by Karen Messer) Mother Alcohol abuse FH: mental illness Father Alcohol abuse Brother Alcohol abuse FH: mental illness Maternal Grandfather Alcohol abuse Sister Alcohol abuse FH: mental illness Maternal Grandmother FH: mental illness Social History Housing: House Alcohol intake: never Patient Tobacco Use Status: Former Tobacco user e-Cigarette/Vaping Use: Never Used Second Hand Smoke Exposure: Yes service: No 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al status: disabled 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 1. Little interest or pleasure in doing things: nearly every day 2. Feeling down, depressed, or hopeless: nearly every day 3. Trouble falling or staying asleep, or sleeping too much: several days 4. Feeling tired or having little energy: nearly every day 5. Poor appetite or overeating: not at all 6. Feeling bad about yourself - or that you are a failure or have let yourself or your family down: nearly every day 7. Trouble concentrating on things, such as reading the newspaper or watching television: nearly every day 8. Moving or speaking so slowly that other people could have noticed. Or the opposite - being so fidgety or restless that you have been moving around a lot more than usual: not at all 9. Thoughts that you would be better off or of hurting yourself in some way: not at all Total score: 16 Depression Screening Interpretation: Positive Depression Screening Done: Yes 56046 - PHQ-9 Billing: Yes Source: Developed by Drs. Sin Chavira, Carolyn Amaro, Soham Elder and colleagues, with an educational kimberly from [employer]. Thrive Questionnaire Date Thrive assessed: 03/06/24 I am a: Patient What is your living situation today?: I have a steady place to live Within the past 12 months, did the food you bought not last and you didn't have the money to get more?: Often true Within the past 12 months, did you worry whether your food would run out before you got money to buy more?: Often true Do you have trouble paying for medicines?: No Do you have trouble getting transportation to medical appointments?: No Do you have trouble paying your heating and electricity bill?: No Do you have trouble taking care of your child, family member or friend?: No Do you have trouble with day-to-day activities such as bathing, preparing meals, shopping, managing finances, etc.?: No Are you currently unemployed and looking for a job?: No Are you interested in more education?: No Please select the resources that you would like help with: None Currently or been in a relationship where the following occur: No concerns reported THRIVE Score: 2 AUDIT C Alcohol Use Questionnaire (AUDIT-C) 1. How often do you have a drink containing alcohol?: Never Total Score: 0 Score Reviewed/Action Taken: Yes JOHN-7 AMB Questionnaire JOHN-7 Date JOHN - 7 assessed: 03/06/24 Feeling nervous, anxious, or on edge: 3 = Nearly every day Not being able to stop or control worryin = Nearly every day Worrying too much about different things: 3 = Nearly every day Trouble relaxin = Nearly every day Being so restless that it is hard to sit still: 1 = Several days Becoming easily annoyed or irritable: 0 = Not at all Feeling afraid as if something awful might happen: 0 = Not at all Total JOHN-7 score (0-4 normal; 5-9 mild; 10-14 moderate; 15-21 severe): 13 Source: Developed by Drs. Sin Chavira, Carolyn Amaro, Soham Elder and colleagues, with an educational kimberly from [employer]. JOHN-7 Assessment Billing JOHN-7 Assessment Tool: JOHN-7 Assessment 07863 Review of Systems Const Details: Denies chills, Denies fatigue, Denies fever(s), Denies headache(s) and Denies weakness HEENT Denies change in vision, Denies dizziness, Denies headache(s), Denies hearing loss, Denies nasal congestion, Denies sinus pain, Denies sinus pressure and Denies sore throat Card Denies chest pain, Denies lightheadedness, Denies dyspnea and Denies other (palpitations) Resp Denies cough, Denies dyspnea and Denies wheezing GI Denies abdominal pain, Denies melena, Denies hematochezia, Denies change in bowel habits, Denies dyspepsia and Denies nausea Denies hematuria and Denies dysuria Musc Denies abnormal gait, Denies myalgias, Denies arthralgias, Denies numbness and Denies tingling Skin/Breast Denies rash, Denies unusual bruising and Denies wounds Neuro Denies abnormal gait, Denies dizziness, Denies headache(s), Denies memory loss, Denies numbness, Denies Sensory deficit (Neuro), Denies tingling and Denies weakness Psych Denies anxiety, Denies depression and Denies memory loss Endo Denies cold intolerance, Denies fatigue, Denies heat intolerance, Denies polydipsia and Denies polyuria Sagar/Lymph Denies easy bleeding and Denies easy bruising Aller/Immun Denies wheezing Physical exam (Primary Care) Vital Signs: Last Vital Signs Temp 98.0 F 03/06/24 08:37 Pulse 61 03/06/24 08:37 Resp 16 03/06/24 08:37 BP 130/70 03/06/24 09:34 Pulse Ox 97 03/06/24 08:37 Oxygen Delivery Method Room Air 03/06/24 08:37 BMI result Body Mass Index 34.9 Tobacco/Smoking Status: Tobacco use Status Tobacco use date assessed 03/06/24 03/06/24 08:26 Patient Tobacco Use Status Former Tobacco user 03/06/24 08:47 e-Cigarette/Vaping Use Never Used 03/06/24 08:36 PHQ-9: PHQ-9 Score PHQ-9: Total score 16 03/06/24 10:12 Depression Screening Interpretation: Positive Thrive Assessment: Date of Thrive Assessment Date Thrive assessed 03/06/24 03/06/24 08:47 Currently or been in a relationship where the following occur: No concerns reported Const Other: General: no acute distress, well developed, alert and awake Nutritional Appearance: well nourished Orientation/consciousness: patient oriented x3 HENMT Head: Yes normocephalic and Yes atraumatic Ears: hearing grossly normal bilaterally and TM's normal bilaterally General nose exam: Normal external nose present and Normal nares present Mouth: Normal oral and palatal mucosa present and moist mucous membranes Teeth and gingiva: dentition normal Throat: Yes oropharynx normal Eyes Pupils: Equal, round and reactive pupils present and Pupil accommodation reflex normal EOM: EOMs intact bilaterally Neck Neck: Yes normal visual inspection, Yes no lymphadenopathy and Yes trachea midline Thyroid: Thyroid normal Carotids: no bruits Lymphatic: no lymphadenopathy noted Chest Chest palpation & inspection: normal inspection of the chest Resp Effort & Inspection: normal respiratory effort Auscultation: clear to auscultation bilaterally Cardio Rate: regular rate Rhythm: regular rhythm Heart sounds: S1 normal heart sound present, S2 normal heart sound present, no gallops, no murmurs and no rubs Bruits: no abdominal aortic bruits and no carotid bruits GI Palpation (GI): No Abdominal aortic bruit present, Soft to palpation, nontender, No hepatosplenomegaly present and No Rebound tenderness present Auscultation: normal bowel sounds General: Yes no CVA tenderness Back/Spine/Pelvis Back: no CVA tenderness Cervical Spine: cervical ROM normal and No Cervical spine tenderness Thoracic/Lumbar Spine: thoraco-lumbar ROM normal, No pain with thoraco-lumbar ROM, No thoracic spinal tenderness and No lumbar spinal tenderness Skin General: warm and dry. Normal skin color. Normal skin turgor Lesions: no lesions Rashes: no rashes Trauma: no lacerations or abrasions Wounds: no wounds Nails: normal Neuro General: patient oriented x3, gait normal and CN's II-XI intact bilaterally Cranial nerves: Yes Equal, round and reactive pupils present Cognition (Neuro): normal cognition Gait exam (Neuro): Normal gait present Motor exam (neuro): 5/5 motor strength present throughout Sensory Exam: No Sensory deficit (Neuro) Deep tendon reflexes (DTR's): Right patellar reflex intensity grade: 2+ and Left patellar reflex intensity grade: 2+ Extrem General: Yes normal to inspection, No edema and No calf tenderness Psych Appearance: grossly normal Affect: normal affect Attitude: cooperative Thought process: Normal thought process present Assessment and Plan Assessment & Plan (1) Normal physical examination, routine: Code(s): Z00.00 - Encounter for general adult medical examination without abnormal findings Plan: Normal extended physical exam Continue current treatment regimen Healthy diet and routine exercise encouraged Advised to get lab work done and follow-up in 1 month for hypertension, anxiety, and labs review Return with symptoms or concerns Verbalized understanding and agreed with the treatment plan (2) HTN (hypertension): Code(s): I10 - Essential (primary) hypertension Plan: Resting blood pressure is 130/70, above goal of less than 140/90 Continue current treatment regimen Low-sodium diet encouraged Follow-up in 1 month Verbalized understanding and agreed with the plan (3) Migraine: Code(s): G43.909 - Migraine, unspecified, not intractable, without status migrainosus Qualifiers: Intractability: not intractable Migraine type: unspecified Status migrainosus presence: without status migrainosus Qualified Code(s): G43.909 - Migraine, unspecified, not intractable, without status migrainosus Plan: No acute symptoms Continue current treatment regimen Followed by Neurology and physiatry (4) Seizure disorder: Code(s): G40.909 - Epilepsy, unspecified, not intractable, without status epilepticus Plan: Continue current treatment regimen Followed by Neurology (5) Hyperlipidemia: Code(s): E78.5 - Hyperlipidemia, unspecified Plan: Continue current treatment regimen Will check lipid panel levels and make changes as needed Verbalized understanding and agreed with the plan (6) Osteoarthritis of left knee: Code(s): M17.12 - Unilateral primary osteoarthritis, left knee Qualifiers: Osteoarthritis type: unspecified Qualified Code(s): M17.12 - Unilateral primary osteoarthritis, left knee Plan: No acute symptoms [place] [facility] [place] Continue physical therapy as planned (7) Osteoarthritis of right knee: Code(s): M17.11 - Unilateral primary osteoarthritis, right knee Qualifiers: Osteoarthritis type: unspecified Qualified Code(s): M17.11 - Unilateral primary osteoarthritis, right knee Plan: Plan as above (8) Anxiety about health: Code(s): R45.89 - Other symptoms and signs involving emotional state Plan: She has been feeling anxious daily since she her migraines and seizures started in 2014. No depressive symtpoms. No SI/HI PHQ-9 and JOHN-7 scores revealed moderately severe depression and moderate anxiety respectively Will start hydroxyzine 25 mg daily as needed. Advised to take as prescribed. Instructed on the risks, benefits, and potential adverse reactions of the medication Routine exercise encouraged She met with the [facility] who would refer her to a therapist Follow-up in 1 month or sooner with worsening or new symptoms Verbalized understanding and agreed with the treatment plan (9) Pulmonary nodules: Code(s): R91.8 - Other nonspecific abnormal finding of lung field Plan: She notes that she had a CT of her spine which revealed incidental findings of pulmonary nodules. She was followed by a counter dish carrier at [facility] until last month. However, her health plan stopped coverage. Therefore, she is requesting a new counter dish carrier Referred [place] [facility] [place] (10) Breast cancer screening by mammogram: Code(s): Z12.31 - Encounter for screening mammogram for malignant neoplasm of breast Plan: She notes that her last mammogram was 2 years ago: Normal Mammogram ordered (11) Obesity (BMI 30-39.9): Code(s): E66.9 - Obesity, unspecified Plan: She currently weighs 203 lb, BMI is 34.9 Referred [place] [facility] [place] as requested Healthy diet and routine exercise encouraged Verbalized understanding and agreed with the plan (12) Eye exam, routine: Code(s): Z01.00 - Encounter for examination of eyes and vision without abnormal findings Plan: Last eye exam was 2 years ago Referred [place] [facility] [place] (13) Laboratory tests ordered as part of a complete physical exam (CPE): Code(s): Z00.00 - Encounter for general adult medical examination without abnormal findings Plan: Fasting labs ordered as part of a complete physical exam. Advised to fast for at least 10 hours before getting labs drawn. May drink water Verbalized understanding and agreed with treatment plan. Orders: Orders Complete Blood Count Auto Diff Today Z00.00 - Encounter for general adult medical examination without abnormal findings Microalbumin, Random (w Creat) Today Z00.00 - Encounter for general adult medical examination without abnormal findings Comprehensive [place]. Panel Fast Today Z00.00 - Encounter for general adult medical examination without abnormal findings Lipid Panel Today Z00.00 - Encounter for general adult medical examination without abnormal findings TSH reflex Free T4 Today Z00.00 - Encounter for general adult medical examination without abnormal findings UA CC w/rflx Micro + Cult Today Z00.00 - Encounter for general adult medical examination without abnormal findings MM screening mammo BI Today Z12.31 - Encounter for screening mammogram for malignant neoplasm of breast Referrals Pulmonology Referral R91.8 - Other nonspecific abnormal finding of lung field Nutrition/Dietitian Referral E66.9 - Obesity, unspecified Ophthalmology Referral Z01.00 - Encounter for examination of eyes and vision without abnormal findings Medications: New hydroxyzine HCl 25 mg PO .QD PRN 30 tabs 1RF anxiety 30 days Coding Level of Care Code New Pt Level 4 (12352) Est Pt Prev Care 40-64y(25847) Diagnoses Normal physical examination, routine Z00.00 HTN (hypertension) I10 Migraine without status migrainosus, not intractable, unspecified migraine type G43.909 Intractability: not intractable Migraine type: unspecified Status migrainosus presence: without status migrainosus Seizure disorder G40.909 Hyperlipidemia E78.5 Osteoarthritis of left knee, unspecified osteoarthritis type M17.12 Osteoarthritis type: unspecified Osteoarthritis of right knee, unspecified osteoarthritis type M17.11 Osteoarthritis type: unspecified Anxiety about health R45.89 Pulmonary nodules R91.8 Breast cancer screening by mammogram Z12.31 Obesity (BMI 30-39.9) E66.9 Eye exam, routine Z01.00 Laboratory tests ordered as part of a complete physical exam (CPE) Z00.00 Additional Codes JOHN-7 Assessment Billing - JOHN-7 Assessment Tool: JOHN-7 Assessment [id number] ([id number])
[2024-03-06 08:37] VITALS: BP 138/78; PULSE 61; RESP 16; TEMP 36.7; O2SAT 97; BMI 34.9
[2024-03-06 09:34] VITALS: BP 130/70
== END 2024-03-06 10:23 | disposition home or self-care (01) ==
PROVIDERS: PCP Nurse Practitioner Family; Visit Provider Nurse Practitioner Family
DX: Z00.00 Encounter for general adult medical examination without abnormal findings (principal); I10 Essential (primary) hypertension; G43.909 Migraine, unspecified, not intractable, without status migrainosus; G40.909 Epilepsy, unspecified, not intractable, without status epilepticus; E78.5 Hyperlipidemia, unspecified; M17.4 Other bilateral secondary osteoarthritis of knee; R45.89 Other symptoms and signs involving emotional state; R91.8 Other nonspecific abnormal finding of lung field; E66.9 Obesity, unspecified; Z12.31 Encounter for screening mammogram for malignant neoplasm of breast
CPT/HCPCS: 96127; 99204; 99396

== ENCOUNTER 2024-03-19 09:12 | Outpatient (AMB) | payer OTHER, SELFPAY ==
--- NOTE | 2024-03-19 09:14 | MHC.OFFVIS ---
Vital Signs 03/19/24 09:15 Height 5 ft 4 in Weight 203 lb BMI 34.8 BP 182/87 H Blood Pressure Location Lt brachial Position Sitting Respiration 15 Pulse 68 Pulse Source Pulse Oximeter Pulse Oximetry (%) 99 Oxygen Delivery Method Room Air Intake Visit Reasons: Botox Inj Allergies baclofen Allergy (Intermediate, Verified 03/19/24 09:17) Dizziness latex [LATEX] Allergy (Unknown, Verified 03/19/24 09:17) RASH codeine [Codeine] Adverse Reaction (Unknown, Verified 03/19/24 09:17) NAUSEOUS Medication List - Last Reconciled 03/19/24 by Jacy Barroso LPN amlodipine-benazepril 10-20 mg 1 cap PO DAILY atorvastatin 10 mg PO DAILY B-complex with vitamin C 1 tab PO DAILY betamethasone dipropionate 0.05% 1 appl topical BID divalproex 250 mg PO BID gabapentin 1,200 mg PO TID hydroxyzine HCl 25 mg PO .QD PRN 30 days lamotrigine 200 mg PO BID meclizine 25 mg PO BID PRN omeprazole 40 mg PO DAILY propranolol 40 mg PO BID HPI HPI Botox Inj: Details: 53-year-old female who presents today for Botox injection. Denies any recent cough, cold, infection, fever or other significant changes in medical history since last office visit. [facility] Medical History (Updated 03/06/24 @ 10:23 by Whit Thakur CNP) Chronic cluster headache, intractable Seizure disorder Migraine Acid reflux HTN (hypertension) Family History (Updated 03/06/24 @ 08:36 by Karen Messer) Mother Alcohol abuse FH: mental illness Father Alcohol abuse Brother Alcohol abuse FH: mental illness Maternal Grandfather Alcohol abuse Sister Alcohol abuse FH: mental illness Maternal Grandmother FH: mental illness Social History Housing: House Alcohol intake: never Patient Tobacco Use Status: Former Tobacco user e-Cigarette/Vaping Use: Never Used Second Hand Smoke Exposure: Yes service: No 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al status: disabled 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 Alert and oriented. Mood and affect appropriate. Follows and participates in conversation appropriately. Respiratory effort is unlabored. Able to transition from sit to stand unassisted. Ambulates with bilaterally normal heel strike and toe off. Office Procedures Botulinum toxin Injection Details: Chemodenervation of Scalp and Neck for Chronic Migraine (155units as per protocol approved by FDA) After obtaining written consent, pre-procedure blood pressure and heart rate were stable and recorded in the nursing record. The patient was placed in the sitting position. Bilaterally, 31 points along gear cutter (2 sites), procerus (1 site), frontalis (4 sites), temporalis (8 sites), occipitalis (6 sites), cervical paraspinals (4 sites), and trapezius (6 sites) were identified and prepped with alcohol. Using sterile technique, a 30 gauge 0.5 inch needle (for all sites other than trapezius) and 25 gauge 1.5 inch (for trapezius only) needle was introduced into each muscle and 5 units per site was injected. A total of 155 units were used. Aspirations were negative for blood, CSF and air prior to injection at all sites. The needle was removed, skin cleansed and a sterile bandage was applied where needed. The patient tolerated the procedure well and no complications were encountered. Following the procedure the patient's vital signs were stable. The patient was discharged home in good condition with post-procedural instructions. Time Out: Immediately prior to the procedure, the following was verbally confirmed that there is a signed consent form and that the correct patient, planned procedure, site and side are consistent with documentation and that necessary equipment and/or blood products are available prior to the start of the case. Complications: none EBL: <5 cc 86534 - Migraine Procedure code (CPT) selection complete Office Meds onabotulinumtoxinA 200 unit solution for injection Performing Provider: Alden King MD Performing Location: [facility] Administered by: Alden King MD on 03/19/24 10:44 Dose Route Admin Location Dispensed Lot Number Expiration Date [facility][NOTE 3] [employer] 200 unit IM 155 ea [id number] 06/01/26 Assessment & Plan Assessment & Plan (1) Migraine: Code(s): G43.909 - Migraine, unspecified, not intractable, without status migrainosus Category: Medical Qualifiers: Migraine type: unspecified Status migrainosus presence: without status migrainosus Intractability: not intractable Qualified Code(s): G43.909 - Migraine, unspecified, not intractable, without status migrainosus Plan Patient is status post Botox injection. Patient tolerated procedure well and was discharged home in stable condition with discharge instructions. All questions were answered. Follow up as needed. Scribed for Dr. King by Michell, medical specialist, on 03/19/2024. I, Dr. King, have personally reviewed and agree with the information entered by the scribe. Orders: Orders AMB Botulinum toxin Injection Today G43.909 - Migraine, unspecified, not intractable, without status migrainosus Medications: New onabotulinumtoxinA 200 units IM ONCE 1 ea 0RF G43.909 - Migraine, unspecified, not intractable, without status migrainosus Coding Level of Care Code Procedure Only Diagnoses Migraine without status migrainosus, not intractable, unspecified migraine type G43.909 Migraine type: unspecified Status migrainosus presence: without status migrainosus Intractability: not intractable CPT Codes Botox Injection - Botox 3: 16378 - Migraine ([id number])
[2024-03-19 09:15] VITALS: BP 182/87; PULSE 68; RESP 15; O2SAT 99; BMI 34.8
== END 2024-03-19 09:37 | disposition home or self-care (01) ==
PROVIDERS: PCP Internal Medicine; Visit Provider Internal Medicine
DX: G43.E09 Chronic migraine with aura, not intractable, without status migrainosus (principal)
CPT/HCPCS: 64615

== ENCOUNTER → 2024-03-19 09:12 | Outpatient (BNVA) | payer OTHER, SELFPAY | PROVIDERS: PCP Internal Medicine; Visit Provider Internal Medicine | DX: G43.E09 Chronic migraine with aura, not intractable, without status migrainosus (principal) | CPT/HCPCS: 64615; J0585 ==

== ENCOUNTER 2024-03-21 14:42 | Outpatient (REF) | payer OTHER, SELFPAY ==
--- NOTE | ~2024-03-21 | MM_ITS ---
EXAMINATION: MM SCREENING DIGITAL BREAST TOMOSYNTHESIS, BILATERAL CLINICAL INFORMATION: Screening. Asymptomatic. COMPARISON: Mammography: Comparison is made with available priors TECHNIQUE: Digital breast mammography with tomosynthesis is performed in both the craniocaudal and mediolateral oblique views along with computer-aided detection (CAD). FINDINGS: The breasts are heterogeneously dense, which may obscure small masses (ACR BI-RADS breast composition Category c). There are no significant masses, abnormal calcifications, or other abnormalities. MM/MM tomosynthesis screening BI IMPRESSION: No mammographic evidence of malignancy. ASSESSMENT: BI-RADS BI-RADS 1 - Negative RECOMMENDATION: Routine annual mammography screening. 1 year F/U This examination should not preclude the clinical evaluation of a suspicious palpable abnormality. This patient's information was entered into a reminder system with a target due date for their next mammogram. Electronically signed by: Mi Rollins DO 04/03/2024 01:11 PM EDT
== END 2024-03-21 14:43 | disposition home or self-care (01) ==
LOC: HO.MAMMO 14:42
PROVIDERS: PCP Nurse Practitioner Family; Visit Provider Nurse Practitioner Family
DX: Z12.31 Encounter for screening mammogram for malignant neoplasm of breast (principal)
CPT/HCPCS: 77063; 77067

== ENCOUNTER → 2024-03-21 14:44 | Outpatient (BNV) | payer OTHER, SELFPAY | PROVIDERS: PCP Nurse Practitioner Family; Visit Provider Internal Medicine | DX: Z12.31 Encounter for screening mammogram for malignant neoplasm of breast (principal) | CPT/HCPCS: 77063; 77067 ==

== ENCOUNTER 2024-03-26 10:44 | Outpatient (AMB) | payer OTHER, SELFPAY ==
--- NOTE | 2024-03-26 10:44 | A.OFFVIS_ITS ---
Intake Visit Reasons: SIDE EFFECTS FROM BOTOX Allergies baclofen Allergy (Intermediate, Verified 04/17/24 13:37) Dizziness latex [LATEX] Allergy (Unknown, Verified 04/17/24 13:37) RASH codeine [Codeine] Adverse Reaction (Unknown, Verified 04/17/24 13:37) NAUSEOUS HPI HPI SIDE EFFECTS FROM BOTOX: Details: 53-year-old female who presents today to the office to discuss side effects from Botox injections. She states she felt sudden head pain which worsened eventually as soon as she received Botox injection. She experienced weakness in her legs. She reports the frequency and intensity of the headache has been unchanged since the Botox. She takes medication 3 times a day. [facility] Medical History (Updated 03/06/24 @ 10:23 by Whit Thakur CNP) Chronic cluster headache, intractable Seizure disorder Migraine Acid reflux HTN (hypertension) Family History (Updated 03/06/24 @ 08:36 by Karen Messer MA) Mother Alcohol abuse FH: mental illness Father Alcohol abuse Brother Alcohol abuse FH: mental illness Maternal Grandfather Alcohol abuse Sister Alcohol abuse FH: mental illness Maternal Grandmother FH: mental illness Social History Housing: House Alcohol intake: never Patient Tobacco Use Status: Former Tobacco user e-Cigarette/Vaping Use: Never Used Second Hand Smoke Exposure: Yes service: No 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al status: disabled 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 Cognitive needs: No Hearing needs: No Vision needs: Yes Telehealth Telehealth Telehealth Platform: Telephone Location of provider rendering services: practice address Location of patient: address on file Patient Identification confirmed using: Name, : Yes Telehealth method: voice only Patient verbally consented to treatment: Yes Patient verbally consented to billing insurance company: Yes Patient informed of any privacy concerns related to visit: Yes Minutes spent on Phone/Video with Pt.: 15 Assessment & Plan Assessment & Plan (1) Seizure disorder: Code(s): G40.909 - Epilepsy, unspecified, not intractable, without status epilepticus Category: Medical (2) Chronic cluster headache, intractable: Code(s): G44.021 - Chronic cluster headache, intractable Category: Medical (3) Migraine: Code(s): G43.909 - Migraine, unspecified, not intractable, without status migrainosus Category: Medical Qualifiers: Migraine type: unspecified Status migrainosus presence: without status migrainosus Intractability: not intractable Qualified Code(s): G43.909 - Migraine, unspecified, not intractable, without status migrainosus Plan She reports unusual adverse effects following the injection of Botox that seemed to make her underlying neurological disorder worse. Subsequently, it improved after she resumed her anticonvulsant regimen. We will not be repeating Botox injections for her since she denies any benefit. I once again encouraged her to seek out a dedicated Neurology/headache specialist to treat the spectrum of her neurological condition that includes headache. She will check with the other hospitals in the area to see if they accept her insurance. Once she has found a provider, we will be happy to send a referral to that provider to continue her treatment. I did offer her a temporary occipital nerve stimulator, as a potential therapeutic option for occipital headaches, but I still feel that she would be better served by medical optimization of her disorder prior to undertaking further interventional therapy. Coding Level of Care Code Tele Est Pt Level 3 (57035) Diagnoses Seizure disorder G40.909 Chronic cluster headache, intractable G44.021 Migraine without status migrainosus, not intractable, unspecified migraine type G43.909 Migraine type: unspecified Status migrainosus presence: without status migrainosus Intractability: not intractable
== END 2024-03-26 10:45 | disposition home or self-care (01) ==
LOC: HO.PMC 10:44
PROVIDERS: PCP Internal Medicine; Visit Provider Internal Medicine
DX: G40.909 Epilepsy, unspecified, not intractable, without status epilepticus (principal); G44.021 Chronic cluster headache, intractable; G43.909 Migraine, unspecified, not intractable, without status migrainosus
CPT/HCPCS: 99024

== ENCOUNTER → 2024-03-26 10:44 | Outpatient (BNVA) | payer OTHER, SELFPAY | PROVIDERS: PCP Internal Medicine; Visit Provider Internal Medicine | DX: G40.909 Epilepsy, unspecified, not intractable, without status epilepticus (principal); G44.021 Chronic cluster headache, intractable; G43.909 Migraine, unspecified, not intractable, without status migrainosus | CPT/HCPCS: 99212 ==

== ENCOUNTER 2024-04-17 13:27 | Outpatient (AMB) | payer MEDICARE, SELFPAY ==
--- NOTE | 2024-04-17 13:29 | MHC.OFFVIS ---
Intake Visit Reasons: OV - B/L knee OA, last inj 01/17/24 Intake Note: Kenya is a 53 year old female who presents today for a follow up for her Bilateral knee OA, last injections 01/17/24. Patient reports her last injection gave her relief. She wants to know when is the best time to repeat. Patient is not haivng much pain today, however she is having questions about how will it affect her bones. Allergies baclofen Allergy (Intermediate, Verified 04/17/24 13:37) Dizziness latex [LATEX] Allergy (Unknown, Verified 04/17/24 13:37) RASH codeine [Codeine] Adverse Reaction (Unknown, Verified 04/17/24 13:37) NAUSEOUS HPI HPI OV - B/L knee OA, last inj 01/17/24: Details: 53-year-old female who presents in the office today for a follow-up of bilateral knees osteoarthritis. I last saw the patient in the office on 01/17/24 when she was given a cortisone injection in the bilateral knees. While in the office today, the patient reports her last cortisone injection provided her relief. She states she has tolerable amount of pain today. She would like to know when is the best time to have a repeat injection. [facility] Medical History (Updated 03/06/24 @ 10:23 by Whit Thakur CNP) Chronic cluster headache, intractable Seizure disorder Migraine Acid reflux HTN (hypertension) Family History (Updated 03/06/24 @ 08:36 by Karen Messer MA) Mother Alcohol abuse FH: mental illness Father Alcohol abuse Brother Alcohol abuse FH: mental illness Maternal Grandfather Alcohol abuse Sister Alcohol abuse FH: mental illness Maternal Grandmother FH: mental illness Social History Housing: House Alcohol intake: never Patient Tobacco Use Status: Former Tobacco user e-Cigarette/Vaping Use: Never Used Second Hand Smoke Exposure: Yes service: No 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al status: disabled 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 No ecchymosis, erythema, or joint effusion. No tenderness to palpation to the medial or lateral joint lines. Full knee extension and flexion. Crepitus felt with ROM, right worse then left. NVI. Office Procedures Joint Injection/Aspiration Joint Injection/Aspiration Primary Site: right knee Secondary Site: left knee Prep: site was prepped using aseptic technique, ethochloride spray was applied and injection warnings given Injected: 80 mg of, DepoMedrol, with 8 mL of (2%plain lido ) and in the joint Approach Used: anterolateral Procedure: The patient tolerated the procedure well, but had some pain with the injection and there was some relief with the local anesthesia Coding 03637 - Large joint Procedure code (CPT) selection complete Assessment & Plan Assessment & Plan (1) Osteoarthritis of right knee: Code(s): M17.11 - Unilateral primary osteoarthritis, right knee Category: Medical Qualifiers: Osteoarthritis type: unspecified Qualified Code(s): M17.11 - Unilateral primary osteoarthritis, right knee (2) Osteoarthritis of left knee: Code(s): M17.12 - Unilateral primary osteoarthritis, left knee Category: Medical Qualifiers: Osteoarthritis type: unspecified Qualified Code(s): M17.12 - Unilateral primary osteoarthritis, left knee Plan Ms. Awad is a 53-year-old female who presents in the office today for a follow-up of bilateral knee osteoarthritis. I last saw the patient in the office on 01/17/24 when she was given a cortisone injection in the bilateral knees. While in the office today, the patient reports her last cortisone injection provided her relief. She states she has a tolerable amount of pain today. She would like to know when is the best time to have a repeat injection. The patient was offered a cortisone injection in the bilateral knees with 80 mg of Depo-Medrol. The patient was explained the risks, benefits, and alternatives to receiving this injection. After receiving consent for the injection, the patient had the procedure done while in the office today. The patient tolerated the procedure well with no complication. Follow-up will be PRN, or sooner if needed. The patient reported mild dizziness and lightheadedness in the waiting room prior to departure. She was encouraged to wait until symptoms resolved. We offered to assist the patient to the ED but she declined. Patient Instructions: Scribed by Pura Felix, medical planner, for Ana Flores PA-C on 04/17/24 at 1:52 pm EST. Coding Level of Care Code Est Pt Level 3 (30531) Diagnoses Osteoarthritis of right knee, unspecified osteoarthritis type M17.11 Osteoarthritis type: unspecified Osteoarthritis of left knee, unspecified osteoarthritis type M17.12 Osteoarthritis type: unspecified CPT Codes Coding - 74283 Large joint: 65944 - Large joint ([id number])
== END 2024-04-17 14:11 | disposition home or self-care (01) ==
PROVIDERS: PCP Internal Medicine; Visit Provider Physician Assistant
DX: M17.0 Bilateral primary osteoarthritis of knee (principal)
CPT/HCPCS: 20610; 99213

== ENCOUNTER → 2024-04-17 13:27 | Outpatient (BNVA) | payer MEDICARE, SELFPAY | PROVIDERS: PCP Internal Medicine; Visit Provider Physician Assistant | DX: M17.0 Bilateral primary osteoarthritis of knee (principal) | CPT/HCPCS: 20610; 99212; J1010; J2003 ==

== ENCOUNTER 2024-04-23 09:59 | Outpatient (AMB) | payer MEDICARE, SELFPAY ==
--- NOTE | 2024-04-23 10:23 | AM.OFFWIN_ITS ---
Intake Vital Signs 04/23/24 10:25 Weight 201 lb BP 132/100 H Blood Pressure Location Lt brachial Position Sitting Pulse 64 Pulse Source Pulse Oximeter Pulse Oximetry (%) 97 Oxygen Delivery Method Room Air Intake Visit Reasons: [employer] Intake Note: Patient here for right eye swelling and discharge that started yesterday. Patient Tobacco Use Status: Former Tobacco user Allergies baclofen Allergy (Intermediate, Verified 04/23/24 10:25) Dizziness latex [LATEX] Allergy (Unknown, Verified 04/23/24 10:25) RASH codeine [Codeine] Adverse Reaction (Unknown, Verified 04/23/24 10:25) NAUSEOUS Do you need a note to return to daycare/school/sports/work: No HPI HPI Comments History of Present Illness Details Patient is a 53-year-old female complaining of right eyelid swelling, itchiness and feeling like there is something in her eye. She states she went to a farm 3 days ago on what went on a hay ride and there was stuff flying in the air and she thinks something might have gotten into her eye. She denies any changes in her vision or pain in the eye. She states it is more of an uncomfortableness. [facility] Medical History (Updated 04/23/24 @ 10:44 by Jodie Garcia PA-C) Chronic cluster headache, intractable Seizure disorder Migraine Acid reflux HTN (hypertension) Family History (Updated 03/06/24 @ 08:36 by Karen Messer MA) Mother Alcohol abuse FH: mental illness Father Alcohol abuse Brother Alcohol abuse FH: mental illness Maternal Grandfather Alcohol abuse Sister Alcohol abuse FH: mental illness Maternal Grandmother FH: mental illness Social History Housing: House Alcohol intake: never Patient Tobacco Use Status: Former Tobacco user e-Cigarette/Vaping Use: Never Used Second Hand Smoke Exposure: Yes service: No 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al status: disabled 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 Cognitive needs: No Hearing needs: No Vision needs: Yes Review of Systems Const All systems reviewed & are unremarkable except as noted in HPI and below Physical Exam Vital Signs: Last Vital Signs Pulse 64 04/23/24 10:25 BP 132/100 H 04/23/24 10:25 Pulse Ox 97 04/23/24 10:25 Oxygen Delivery Method Room Air 04/23/24 10:25 Const General: cooperative, healthy appearing, comfortable, no acute distress and well developed Orientation/consciousness: patient oriented x3 Limitations: no limitations HEENT Head: Yes normal to inspection Eyes Alignment and Position: alignment normal and position normal Periorbital: periorbital findings abnormal right (Slight swelling inferior to the eye) Eyelids: Yes eyelid abnormality (Swelling of both the upper and lower eyelids of the right eye) Conjunctivae: conjunctival abnormal right conjunctival injection (Slight) Corneas: corneas abnormal on the right fluorescein used and abrasion linear and at the following clock position (5-7) Neck Neck: Yes normal visual inspection and Yes supple Neuro General: patient oriented x3 Office Procedures Fluorescein eye exam Details: right eye, applied 2 drops of tetracaine eyedrops, used to stain and fluorescein light and saw a corneal abrasion on the inferior aspect of the pupil extending from 5:00 to 7:00 Assessment & Plan Assessment & Plan (1) Corneal abrasion, right: Code(s): S05.01XA - Injury of conjunctiva and corneal abrasion without foreign body, right eye, initial encounter Qualifiers: Encounter type: initial encounter Qualified Code(s): S05.01XA - Injury of conjunctiva and corneal abrasion without foreign body, right eye, initial encounter Plan: Using fluorescein, corneal abrasion inferior to the pupil extending from 5:00 to 7:00, sent erythromycin ointment. Plan See above Medications: New erythromycin Apply to right eye 4 times a day while awake 0.5 inches ophthalmic (eye) QID 3.5 grams 0RF Coding Level of Care Code New Pt Level 4 (58007) Diagnoses Abrasion of right cornea, initial encounter S05.01XA Encounter type: initial encounter
[2024-04-23 10:25] VITALS: BP 132/100; PULSE 64; O2SAT 97
== END 2024-04-23 10:42 | disposition home or self-care (01) ==
PROVIDERS: PCP Internal Medicine; Visit Provider Physician Assistant
DX: S05.01XA Injury of conjunctiva and corneal abrasion without foreign body, right eye, initial encounter (principal)

== ENCOUNTER → 2024-04-23 09:59 | Outpatient (BNVA) | payer MEDICARE, SELFPAY | PROVIDERS: PCP Internal Medicine; Visit Provider Physician Assistant | DX: S05.01XA Injury of conjunctiva and corneal abrasion without foreign body, right eye, initial encounter (principal) | CPT/HCPCS: 99212 ==

== ENCOUNTER 2024-05-06 13:44 | Outpatient (AMB) | payer OTHER, SELFPAY ==
--- NOTE | 2024-05-06 14:02 | A.OFFVIS_ITS ---
VS Expanded 05/06/24 14:06 05/06/24 14:14 Height 5 ft 4 in 5 ft 4 in Weight 206 lb 9.17 oz 207 lb BMI 35.5 35.5 Intake Visit Reasons: Obesity/LVM Allergies baclofen Allergy (Intermediate, Verified 04/23/24 10:25) Dizziness latex [LATEX] Allergy (Unknown, Verified 04/23/24 10:25) RASH codeine [Codeine] Adverse Reaction (Unknown, Verified 04/23/24 10:25) NAUSEOUS Nutrition Presentation Details: Pt presents for MNT for obesity food frequency fish : 1/month fruits: 1/d yogurt/milk: 2-3 /day vegetables: 0x/wk starches > 20/d water: 4-10 cups/d fried foods 3 x/wk physical activity : sedentary BS Monitoring Most Recent Diabetes Results: No Data to Display MTW-Jprakvb-Md.Jeor Equation Height: 5 ft 4 in Weight: 207 lb Resting Metabolic Rate: 1522.40 Calculated Activity Level: Sedentary Calories Needed to Maintain Weight: 1826.88 Diagnosis Nutrition problem #1: food nutri know defi As related to (etiology) #1: diagnosis As evidenced by (sign/symptom) #1: knowledge deficit of diet [facility] Medical History (Updated 04/23/24 @ 10:44 by Jodie Garcia PA-C) Chronic cluster headache, intractable Seizure disorder Migraine Acid reflux HTN (hypertension) Family History (Updated 03/06/24 @ 08:36 by Karen Messer MA) Mother Alcohol abuse FH: mental illness Father Alcohol abuse Brother Alcohol abuse FH: mental illness Maternal Grandfather Alcohol abuse Sister Alcohol abuse FH: mental illness Maternal Grandmother FH: mental illness Social History Housing: House Alcohol intake: never Patient Tobacco Use Status: Former Tobacco user e-Cigarette/Vaping Use: Never Used Second Hand Smoke Exposure: Yes service: No 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al status: disabled 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 Cognitive needs: No Hearing needs: No Vision needs: Yes Assessment & Plan Assessment & Plan (1) Obesity (BMI 30-39.9): Code(s): E66.9 - Obesity, unspecified Category: Medical Plan: Wt: 94 Kg ( 05/2024 ) Est kcal needs as per MSJ: 1800 (40% carb, 30% protein/fat) Est fluid needs as per 25-30 ml/d: 2800 Est prot per day as per 1 g/kg bw: 94 Recommend fiber intake : 8-10 g per day and gradually increase to 25-28 g per day for women and 35-38 g for men or as tolerated Recommend sodium intake per day : less than 2300 mg Educated patient on: ( R = reviewed V = verbalizes understanding N/R = needs review N/A = not applicable * Food sources of carbohydrate, adequate serving sizes and its role in various health conditions: R V N/R * Differences between complex carbohydrates a simple carbohydrates, role of fiber in diet: R * Lean protein sources of foods: R V NR * Differences between types of fats and role in diet (mono on saturated fat fatty acids, saturated fatty acids, trans fats): R * Food sources of sodium in salt and healthy modifications for heart health in kidney health: R V R/V * Vitamins and minerals: R V N/R * Healthy plate method concept: R V N/R * Physical activity: Benefits a precaution: R V N/R * Patient Instructions: Have yogurt with nuts as your mid afternoon snack reducing on sugars from pastries and similar foods Have water with herb/fruit infused flavors, reducing on sugars from beverages see meal ideas/snack ideas low in fat/carbs Coding Level of Care Code Nutr Indiv Intake (35606) Diagnoses Obesity (BMI 30-39.9) E66.9 Time Spent (min) 30
[2024-05-06 14:06] VITALS: BMI 35.5
[2024-05-07 12:34] VITALS: BMI 35.5
== END 2024-05-06 14:38 | disposition home or self-care (01) ==
LOC: HO.ENCR 13:45
PROVIDERS: PCP Internal Medicine; Visit Provider Dietitian, Registered
DX: E66.9 Obesity, unspecified (principal)

== ENCOUNTER → 2024-05-06 13:44 | Outpatient (BNVA) | payer OTHER, SELFPAY | PROVIDERS: PCP Internal Medicine; Visit Provider Dietitian, Registered | DX: E66.9 Obesity, unspecified (principal); Z68.35 Body mass index [BMI] 35.0-35.9, adult; Z71.3 Dietary counseling and surveillance | CPT/HCPCS: 97802 ==

== ENCOUNTER 2024-06-17 13:46 | Emergency (ER) | payer OTHER, SELFPAY ==
--- NOTE | ~2024-06-17 | CT_ITS ---
EXAMINATION: CT HEAD WITHOUT CONTRAST CLINICAL INFORMATION: Dizziness COMPARISON: 08/08/2023 TECHNIQUE: Contiguous axial imaging was performed from the skull base to vertex without intravenous administration of contrast. This CT examination was performed using dose optimization techniques as appropriate, variously including the following: *Automated exposure control *Adjustment of mA and/or kV according to patient size (this includes techniques or standardized protocols for targeted exams where dose is matched to indication/reason for exam; i.e. extremities or head) *Use of iterative reconstruction technique DLP: 616 mGy-cm FINDINGS: The ventricles and sulci are normal in size and configuration. No acute hemorrhage, mass effect or shift is evident. Strauss-white differentiation is maintained. In the posterior fossa, the brainstem, cerebellum and fourth ventricle image normally. The orbits and calvarium are intact. The paranasal sinuses and mastoid air cells are well pneumatized and clear. CT/CT head/brain wo IV con IMPRESSION: 1. Unremarkable noncontrast brain CT. No acute hemorrhage, mass effect or shift. Electronically signed by: David Guy MD 06/17/2024 04:30 PM [facility]
[2024-06-17 13:54] VITALS: BP 136/78; BP 154/71; PULSE 64; PULSE 69; RESP 16; TEMP 36.7; O2SAT 96; O2SAT 99; BMI 36.0
--- NOTE | 2024-06-17 14:00 | ECG_ITS ---
Test Reason : dizziness Blood Pressure : / mmHG Vent. Rate : 065 BPM Atrial Rate : 065 BPM P-R Int : 188 ms QRS Dur : 092 ms QT Int : 400 ms P-R-T Axes : 063 031 -13 degrees QTc Int : 416 ms Sinus rhythm with Premature supraventricular complexes Nonspecific ST and T wave abnormality Abnormal ECG When compared with ECG of 31-JUL-2020 11:29, Premature supraventricular complexes are now Present Referred By: Generic ED Physician Electronically Signed By:RUDOLPH ELLIS
[2024-06-17 14:34] LABS: MANUAL DIFF FLAG NO
[2024-06-17 14:35] LABS: Basophils Absolute Auto 0.1 X10*3/uL (0.0-0.2); Basophils Percent Auto 0.7 % (0-2); Eosinophils Absolute Auto 0.2 X10*3/uL (0.0-0.4); Eosinophils Percent Auto 2.4 % (0-4); Hematocrit 39.4 % (37.0-47.0); Hemoglobin 13.4 g/dl (12.0-16.0); Imm Gran Abs Auto 0.03 X10*3/uL (0.00-0.03); Imm Gran Pct Auto 0.3 % (0.0-0.4); Lymphocytes Absolute Auto 3.6 X10*3/uL (1.2-4.9); Lymphocytes Percent Auto 37.8 % (20-40); Mean Corpuscular Hemoglobin 32.3 pg (27.0-33.0); Mean Corpuscular Volume 94.9 fL (80.0-98.0); Mean Platelet Volume 8.4 fL (9.4-12.3); Monocytes Absolute Auto 0.5 X10*3/uL (0.1-1.2); Monocytes Percent Auto 5.4 % (2-11); Neutrophils Absolute Auto 5.1 x10*3/uL (2.0-8.3); Neutrophils Percent Auto 53.4 % (45-73); Platelet Count 352 X10*3/uL (160-400); Red Blood Count 4.15 X10*6/uL (4.20-5.50); Red Cell Distribution Width 12.8 % (11.0-16.0); White Blood Count 9.5 X10*3/uL (4.8-10.8)
--- NOTE | 2024-06-17 14:38 | ED_ITS ---
HPI - General Adult General Chief complaint: General Medical Stated complaint: DIZZINESS/NAUSEA,INC WEAKNESS PER EMS Time Seen by Provider: 06/17/24 14:21 History of Present Illness HPI narrative: Patient is a 64-year-old female with a history of vertigo in the past. Presents today with having sudden onset of dizziness. That is a spinning sensation. Patient got sick on the way to the hospital. Had had similar symptoms in the past. She had a partial hysterectomy Many years ago. Had a history of seizures in the past currently is on gabapentin Lamictal and Depakote. Related Data Home Medications ?Medication ?Instructions ?Recorded ?Confirmed divalproex 250 mg tablet,delayed 250 mg PO BID 09/23/21 03/19/24 release lamotrigine 25 mg tablet 200 mg PO BID 02/12/23 03/19/24 betamethasone dipropionate 0.05 % 1 appl topical BID 01/10/24 03/19/24 topical cream B-complex with vitamin C 1 tab PO DAILY 03/06/24 03/19/24 gabapentin 600 mg tablet 1,200 mg PO TID 03/06/24 03/19/24 Previous Rx's ?Medication ?Instructions ?Recorded meclizine 25 mg tablet 25 mg PO BID PRN dizziness #20 tabs 07/31/20 hydroxyzine HCl 25 mg tablet 25 mg PO .QD PRN anxiety 30 days 03/06/24 #30 tabs omeprazole 40 mg capsule,delayed 40 mg PO DAILY 30 days #30 caps 04/03/24 release erythromycin 5 mg/gram (0.5 %) eye 0.5 inch ophthalmic (eye) QID #3.5 04/23/24 ointment grams amlodipine 10 mg-benazepril 20 mg 1 cap PO DAILY 30 days #30 caps 05/16/24 capsule atorvastatin 10 mg tablet 10 mg PO DAILY 30 days #30 tabs 05/16/24 propranolol 40 mg tablet 40 mg PO BID 30 days #60 tabs 05/16/24 meclizine 25 mg tablet 25 mg PO QID PRN vertigo #20 tabs 06/17/24 ondansetron 4 mg disintegrating 4 mg PO TID PRN nausea and 06/17/24 tablet vomiting 5 days #10 tabs Allergies Allergy/AdvReac Type Severity Reaction Status Date / Time baclofen Allergy Intermediate Dizziness Verified 06/17/24 13:56 latex [LATEX] Allergy Unknown RASH Verified 06/17/24 13:56 codeine [Codeine] AdvReac Unknown NAUSEOUS Verified 06/17/24 13:56 [facility] Past Medical History Attestation statement: The following information was validated with the patient. Medical History Chronic cluster headache, intractable Seizure disorder Migraine Acid reflux HTN (hypertension) Family History Family History Mother Alcohol abuse FH: mental illness Father Alcohol abuse Brother Alcohol abuse FH: mental illness Maternal Grandfather Alcohol abuse Sister Alcohol abuse FH: mental illness Maternal Grandmother FH: mental illness Social History Social History Housing: House Alcohol intake: never Patient Tobacco Use Status: Former Tobacco user Smoked in Last 30 Days: No e-Cigarette/Vaping Use: Never Used Second Hand Smoke Exposure: Yes Use of substances other than those prescribed or required for medical reasons: No Advance Directives: Yes Advance Directives Information Provided: Yes Advance Directives on File: No Do you have a plan to hurt others: No Plan Patient : No service: No 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al status: disabled 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 Oriented X3. No acute distress. Eyes: Pupils equal, round and reactive to light. ENT: Pharynx normal. Neck: Normal inspection. Neck supple. No lymph nodes noted. No crepitus CVS: Normal heart rate and rhythm. Pulses normal. Normal S1 and S2 Respiratory: No respiratory distress. Breath sounds normal. No Wheezing. No rales Abdomen: Soft and nontender. No rigidity. No distention. good BS x4 Skin: Skin warm and dry. Normal skin color. Normal skin turgor. Extremities: No lower extremity edema. Neurovascular intact to all extremities. No Lacerations. No Rash Neuro: Oriented X 3. No motor deficit. No sensory deficit. Moving all extermities. No slurred speech Medications Administered Discontinued Medications Generic Name Dose Route Start Last Admin Trade Name Cathy PRN Reason Stop Dose Admin Sodium Chloride 1,000 mls @ 999 mls/hr 06/17/24 14:45 06/17/24 15:56 Ns IV 06/17/24 15:45 Infused .Q1H1M MISAEL Infusion Meclizine HCl 25 mg 06/17/24 14:38 06/17/24 15:04 Meclizine Hcl 25 Mg Tablet PO 06/17/24 14:39 25 mg ONCE ONE Administration Ondansetron HCl 4 mg 06/17/24 16:00 06/17/24 16:14 Ondansetron Hcl 4 Mg/2 Ml Vial IVPUSH 06/17/24 16:01 4 mg ONCE ONE Administration Medical Decision Making Medical Decision Making [facility] Narrative: patient presents today with having spinning sensation feeling nauseous dizziness. Had a history of something similar. My interpretation of the CT scan of the head was grossly negative for any acute evidence of bleeding no mass. I reviewed radiology's reading as well. given IV fluids. Given Zofran and Antivert with good results. Symptomatically improved. Hemoglobin is 13.4 no evidence for anemia. Patient's electrolytes unremarkable. Troponin negative. Not consistent with ACS urine showed no signs of infection. Tox screen was grossly negative. Alcohol negative. In stable condition. Differential Diagnosis Differential Diagnoses: The differential diagnosis associated with the presentation includes Vertigo Lab Data [facility] Lab Attestation statement: I reviewed the patient's lab results. 06/17/24 14:30 06/17/24 14:30 Labs: Lab Results 06/17/24 06/17/24 06/17/24 Range/Units 14:30 14:54 15:58 WBC 9.5 (4.8-10.8) X10*3/uL RBC 4.15 L (4.20-5.50) X10*6/uL Hgb 13.4 (12.0-16.0) g/dl Hct 39.4 (37.0-47.0) % MCV 94.9 (80.0-98.0) fL MCH 32.3 (27.0-33.0) pg MCHC 34.0 (31.0-35.0) g/dl RDW 12.8 (11.0-16.0) % Plt Count 352 (160-400) X10*3/uL MPV 8.4 L (9.4-12.3) fL Immature Gran % (Auto) 0.3 (0.0-0.4) % Neut % (Auto) 53.4 (45-73) % Lymph % (Auto) 37.8 (20-40) % [place] % (Auto) 5.4 (2-11) % Eos % (Auto) 2.4 (0-4) % Baso % (Auto) 0.7 (0-2) % Lymph # (Auto) 3.6 (1.2-4.9) X10*3/uL [place] # (Auto) 0.5 (0.1-1.2) X10*3/uL Eos # (Auto) 0.2 (0.0-0.4) X10*3/uL Baso # (Auto) 0.1 (0.0-0.2) X10*3/uL Abs Immat Gran (auto) 0.03 (0.00-0.03) X10*3/uL Absolute Neuts (auto) 5.1 (2.0-8.3) x10*3/uL Absolute Nucleated RBC 0.000 (0.0-0.012) X10*3/uL Nucleated RBC % (auto) 0.0 (0.0-0.2) /100WBC Sodium 141 (135-145) mmol/L Potassium 4.6 (3.3-5.1) mmol/L Chloride 102 (96-108) mmol/L Carbon Dioxide 32 H (22-29) mmol/L Anion Gap 12 (12-20) BUN 13 (9-16) mg/dL Creatinine 0.74 (0.5-1.4) mg/dL Estim Creat Clear Calc 96.1 Estimated GFR > 60 Random Glucose 132 H (60-115) mg/dL Calcium 9.8 (8.4-10.2) mg/dL Magnesium 1.9 (1.6-2.6) mg/dL Total Bilirubin 0.2 (0.0-1.0) mg/dL AST 20 (5-31) U/L ALT 28 (0-31) U/L Alkaline Phosphatase 68 (39-117) U/L Troponin I High Sens < 2.7 (<3.5-17.0) ng/L Total Protein 6.9 (6.5-8.0) g/dL Albumin 4.6 (3.5-5.0) g/dL Urine Color Yellow Urine Appearance Cloudy Urine pH 8.5 (5.0-9.0) Ur Specific [place] 1.010 (1.005-1.025) Urine Protein Negative (Neg-Trace) mg/dL Urine Glucose (UA) Negative (Negative) mg/dL Urine Ketones Negative (Negative) mg/dL Urine Blood Negative (Negative) Urine Nitrite Negative (Negative) Ur Leukocyte Esterase Trace H (Negative) Urine RBC 0-2 (0-2) /HPF Urine WBC 0-5 (0-5) /HPF Ur Squamous Epith Cells 0-2 (0-2) /HPF Urine Bacteria None Seen (None Seen) Hyaline Casts 0-2 (0-2) /LPF Urine Opiates Screen Not Detected (Not Detect) Ur Buprenorphine Scrn Not Detected (Not Detect) ng/mL Ur Oxycodone Screen Not Detected (Not Detect) ng/mL Urine Methadone Screen Not Detected (Not Detect) ng/mL Urine Fentanyl Screen Not Detected (Not Detect) Ur Barbiturates Screen Not Detected (Not Detect) Valproic Acid 52.1 (50.0-100.0) mcg/mL Ur Phencyclidine Scrn Not Detected (Not Detect) Ur Amphetamines Screen Not Detected (Not Detect) U Benzodiazepines Scrn Not Detected (Not Detect) Urine Cocaine Screen Not Detected (Not Detect) U Marijuana (THC) Screen Not Detected (Not Detect) Ethyl Alcohol < 10 mg/dL Independent Interpretation I performed an independent interpretation of an: EKG ( my interpretation patient's EKG showed a sinus pattern heart rate 65 MI QRS QTC normal there is diffuse T-wave flattening noted.) Radiology Impression Discussion of test interpretation with radiology: I have reviewed the radiologist's reading. Chronic Conditions History of vertigo Discharge Plan Discharge Clinical Impression: Vertigo Patient Disposition: Home, Self-Care Instructions: Vertigo (ED) Prescriptions: New meclizine 25 mg tablet 25 mg PO QID PRN (Reason: vertigo) Qty: 20 0RF ondansetron 4 mg tablet,disintegrating 4 mg PO TID PRN (Reason: nausea and vomiting) 5 Days Qty: 10 0RF No Action omeprazole 40 mg capsule,delayed release(DR/EC) 40 mg PO DAILY 30 Days Qty: 30 3RF amlodipine-benazepril 10-20 mg capsule 1 cap PO DAILY 30 Days Qty: 30 3RF atorvastatin 10 mg tablet 10 mg PO DAILY 30 Days Qty: 30 3RF propranolol 40 mg tablet 40 mg PO BID 30 Days Qty: 60 3RF meclizine 25 mg tablet 25 mg PO BID PRN (Reason: dizziness) Qty: 20 0RF B-complex with vitamin C Tablet 1 tab PO DAILY hydroxyzine HCl 25 mg tablet 25 mg PO .QD PRN (Reason: anxiety) 30 Days Qty: 30 1RF divalproex 250 mg tablet,delayed release (DR/EC) 250 mg PO BID lamotrigine 25 mg tablet 200 mg PO BID betamethasone dipropionate 0.05 % cream 1 appl topical BID gabapentin 600 mg tablet 1,200 mg PO TID erythromycin 5 mg/gram (0.5 %) ointment 0.5 inch ophthalmic (eye) QID Qty: 3.5 0RF Rx Instructions: Apply to right eye 4 times a day while awake Referrals: Whit Thakur, JASON [Primary Care Provider] - 06/19/24 Print Language: Ug[place]an
[2024-06-17] MEDS: 0.9 % Sodium Chloride 1,000 ML 999 ML IV (14:59)
[2024-06-17 15:04] LABS: Appearance Urine Cloudy; Color Urine Yellow; Glucose Urine UA Negative (Negative); Leukocyte Esterase Urine Trace (Negative); Nitrite Urine Negative (Negative); PH 8.5 (5.0-9.0); UMIC TRIGGER UACC YES; Urine Blood Negative (Negative); Urine Ketones Negative (Negative); Urine Protein Negative (Neg-Trace)
[2024-06-17] MEDS: Meclizine HCl 25 MG TABLET PO (15:04)
[2024-06-17 15:09] LABS: Bacteria Urine None Seen (None Seen); Hyaline Casts Urine 0-2 /LPF (0-2); RBC Urine 0-2 /HPF (0-2); Squamous Epithelial Cell Urine 0-2 /HPF (0-2); WBC Urine 0-5 /HPF (0-5)
[2024-06-17 15:09] LABS: Troponin-I High Sensitivity < 2.7 ng/L (<3.5-17.0)
[2024-06-17 15:10] LABS: Alanine Aminotransferase 28 U/L (0-31); Albumin Level 4.6 g/dL (3.5-5.0); Alkaline Phosphatase 68 U/L (39-117); Anion Gap 12 (12-20); Aspartate Amino Transferase 20 U/L (5-31); Bilirubin Total 0.2 mg/dL (0.0-1.0); Blood Urea Nitrogen 13 mg/dL (9-16); Calcium 9.8 mg/dL (8.4-10.2); Carbon Dioxide 32 mmol/L (22-29); Chloride 102 mmol/L (96-108); Creatinine Clr Calc Pharmacy 96.1; Estimated Glomerular Filt Rate > 60; Ethanol < 10 mg/dL; Glucose Random 132 mg/dL (60-115); Magnesium 1.9 mg/dL (1.6-2.6); Potassium 4.6 mmol/L (3.3-5.1); Sodium 141 mmol/L (135-145); Total Protein 6.9 g/dL (6.5-8.0)
[2024-06-17 15:13] LABS: Amphetamine Screen Urine Not Detected (Not Detect); Barbiturates, Urine Not Detected (Not Detect); Benzodiazepines Screen Urine Not Detected (Not Detect); Buprenorphine Scr Not Detected (Not Detect); Cannabinoid Screen Urine Not Detected (Not Detect); Cocaine Screen Urine Not Detected (Not Detect); Fentanyl, urine Not Detected (Not Detect); Methadone Screen, Urine Not Detected (Not Detect); Opiate Screen Urine Not Detected (Not Detect); Oxycodone Screen Urine Not Detected (Not Detect); Phencyclidine Screen Urine Not Detected (Not Detect)
--- NOTE | 2024-06-17 15:40 | PC.NURSE ---
pt c/o inability to walk due to chronic shakiness and weakness . requesting CT of her legs. pt up to the bathroom independently, even bipedal gait
[2024-06-17] MEDS: ondansetron HCL 4 MG/2 ML VIAL IVPUSH (16:14)
[2024-06-17 16:15] LABS: Valproate 52.1 mcg/mL (50.0-100.0)
[2024-06-17 18:01] VITALS: BP 130/54; PULSE 64; RESP 18; TEMP 36.7; O2SAT 99
== END 2024-06-17 18:15 | disposition home or self-care (01) ==
PROVIDERS: Emergency Provider Emergency Medicine Emergency Medical Services; PCP Nurse Practitioner Family
DX: R42 Dizziness and giddiness (principal); R11.2 Nausea with vomiting, unspecified; R94.31 Abnormal electrocardiogram [ECG] [EKG]; Z79.899 Other long term (current) drug therapy; Z51.81 Encounter for therapeutic drug level monitoring
CPT/HCPCS: 36415; 70450; 80053; 80164; 80307; 81001; 83735; 84484; 85025; 93005; 96361; 96374; 99285; J2405

== ENCOUNTER → 2024-06-17 14:00 | Outpatient (BNV) | payer OTHER, SELFPAY | PROVIDERS: Emergency Provider Emergency Medicine Emergency Medical Services; PCP Nurse Practitioner Family; Visit Provider Internal Medicine | DX: R94.31 Abnormal electrocardiogram [ECG] [EKG] (principal) | CPT/HCPCS: 93010 ==

== ENCOUNTER 2024-07-07 14:56 | Outpatient (AMB) | payer OTHER, SELFPAY ==
--- NOTE | 2024-07-07 15:03 | MHC.PC.OV ---
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 Is last menstrual period known: No Post menopausal: No Patient : No Allergies baclofen Allergy (Intermediate, Verified 07/07/24 15:29) Dizziness latex [LATEX] Allergy (Unknown, Verified 07/07/24 15:29) RASH codeine [Codeine] Adverse Reaction (Unknown, Verified 07/07/24 15:29) NAUSEOUS Medication List - Last Reconciled 07/07/24 by Whit Thakur CNP amlodipine-benazepril 10-20 mg 1 cap PO DAILY 30 days atorvastatin 10 mg PO DAILY 30 days B-complex with vitamin C 1 tab PO DAILY betamethasone dipropionate 0.05% 1 appl topical BID divalproex 250 mg PO BID erythromycin 0.5 inches ophthalmic (eye) QID gabapentin 1,200 mg PO TID hydroxyzine HCl 25 mg PO .QD PRN 30 days lamotrigine 200 mg PO BID meclizine 25 mg PO BID PRN meclizine 25 mg PO QID PRN omeprazole 40 mg PO DAILY 30 days ondansetron 4 mg PO TID PRN 5 days propranolol 40 mg PO BID 30 days Tobacco use date assessed: 07/07/24 Dental Screening Dental Screen Date: 07/07/24 Did you have a dental visit in the last 12 months?: Yes Did you have a dental problem in the last 6 months where you did not have access to dental care?: No Was dental information given to patient?: Patient has dentist HPI HPI Comments History of Present Illness Details 54-year-old female presents with complaints of bumps to her lateral thighs. She notes that the bumps have constant burning sensation that keeps her awake at night. The lumps have been present for 10 years and have progressively worsened. There have been more bumps and they have been more painful. She was evaluated by [facility] about 2 years ago and was told the bumps are internal and there was nothing they could do. She would like surgery consult. Wilma, and may present as a director content marketing during this encounter. 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 1. Little interest or pleasure in doing things: not at all 2. Feeling down, depressed, or hopeless: not at all 3. Trouble falling or staying asleep, or sleeping too much: not at all 4. Feeling tired or having little energy: nearly every day 5. Poor appetite or overeating: not at all 6. Feeling bad about yourself - or that you are a failure or have let yourself or your family down: not at all 7. Trouble concentrating on things, such as reading the newspaper or watching television: not at all 8. Moving or speaking so slowly that other people could have noticed. Or the opposite - being so fidgety or restless that you have been moving around a lot more than usual: not at all 9. Thoughts that you would be better off or of hurting yourself in some way: not at all Total score: 3 Depression Screening Interpretation: Negative Depression Screening Done: Yes Source: Developed by Drs. Sin Chavira, Carolyn Amaro, Soham Elder and colleagues, with an educational kimberly from [employer]. Thrive Questionnaire Date Thrive assessed: 06/30/24 I am a: Patient What is your living situation today?: I have a steady place to live Within the past 12 months, did the food you bought not last and you didn't have the money to get more?: Never true Within the past 12 months, did you worry whether your food would run out before you got money to buy more?: Never true Do you have trouble paying for medicines?: No Do you have trouble getting transportation to medical appointments?: No Do you have trouble paying your heating and electricity bill?: No Do you have trouble taking care of your child, family member or friend?: No Do you have trouble with day-to-day activities such as bathing, preparing meals, shopping, managing finances, etc.?: No Are you currently unemployed and looking for a job?: No Are you interested in more education?: No Please select the resources that you would like help with: None Currently or been in a relationship where the following occur: No concerns reported THRIVE Score: 0 AUDIT C Alcohol Use Questionnaire (AUDIT-C) 1. How often do you have a drink containing alcohol?: Never Total Score: 0 JOHN-7 AMB Questionnaire JOHN-7 Date JOHN - 7 assessed: 03/06/24 Feeling nervous, anxious, or on edge: 0 = Not at all Not being able to stop or control worryin = Not at all Worrying too much about different things: 0 = Not at all Trouble relaxin = Not at all Being so restless that it is hard to sit still: 0 = Not at all Becoming easily annoyed or irritable: 0 = Not at all Feeling afraid as if something awful might happen: 0 = Not at all Total JOHN-7 score (0-4 normal; 5-9 mild; 10-14 moderate; 15-21 severe): 0 Source: Developed by Drs. Sin Chavira, Carolyn Amaro, Soham Elder and colleagues, with an educational kimberly from [employer]. Review of Systems Const Details: Const Denies chills, Denies fatigue, Denies fever(s), Denies headache(s) and Denies weakness ENT Denies dizziness and Denies headache(s) Card Denies chest pain, Denies lightheadedness, Denies dyspnea and Denies other (Palpitations) Resp Denies cough, Denies dyspnea, Denies wheezing and Denies other ( shortness of breath) GI Denies abdominal pain, Denies melena, Denies hematochezia, Denies change in bowel habits, Denies dyspepsia and Denies nausea Denies hematuria and Denies dysuria Musc Denies abnormal gait, Denies myalgias, Denies arthralgias, Denies numbness and Denies tingling Skin/Breast Reports a switch Neuro Denies abnormal gait, Denies dizziness, Denies headache(s), Denies memory loss, Denies numbness, Denies Sensory deficit (Neuro), Denies tingling and Denies weakness Psych Denies anxiety, Denies depression, Denies memory loss Endo Denies cold intolerance, Denies fatigue, Denies heat intolerance, Denies polydipsia and Denies polyuria Aller/Immun Denies wheezing Physical exam (Primary Care) Vital Signs: Last Vital Signs Temp 97.5 F 07/07/24 15:09 Pulse 63 07/07/24 15:09 Resp 16 07/07/24 15:09 BP 134/70 07/07/24 15:33 Pulse Ox 97 07/07/24 15:09 Oxygen Delivery Method Room Air 07/07/24 15:09 BMI result Body Mass Index 34.7 Tobacco/Smoking Status: Tobacco use Status Tobacco use date assessed 07/07/24 07/07/24 15:14 Patient Tobacco Use Status Former Tobacco user 07/07/24 15:05 e-Cigarette/Vaping Use Never Used 07/07/24 15:05 PHQ-9: PHQ-9 Score PHQ-9: Total score 3 07/07/24 15:40 Depression Screening Interpretation: Negative Thrive Assessment: Date of Thrive Assessment Date Thrive assessed 06/30/24 07/07/24 15:05 Currently or been in a relationship where the following occur: No concerns reported Const Other: General: no acute distress and well developed Nutritional Appearance: well nourished Orientation/consciousness: patient oriented x3 HENMT Head: Yes normocephalic and Yes atraumatic Eyes General: appearance normal, both eyes and all related structures Pupils: Equal, round and reactive pupils present EOM: EOMs intact bilaterally Resp Effort & Inspection: normal respiratory effort Auscultation: clear to auscultation bilaterally Cardio Rate: regular rate Rhythm: regular rhythm Heart sounds: S1 normal heart sound present, S2 normal heart sound present, no gallops, no murmurs and no rubs GI Palpation (GI): No Abdominal aortic bruit present, Soft to palpation, nontender, No hepatosplenomegaly present and No Rebound tenderness present Auscultation: normal bowel sounds General: Yes no CVA tenderness Back/Spine/Pelvis Back: no CVA tenderness Cervical Spine: cervical ROM normal and No Cervical spine tenderness Thoracic/Lumbar Spine: thoraco-lumbar ROM normal, No pain with thoraco-lumbar ROM, No thoracic spinal tenderness and No lumbar spinal tenderness Extrem General: Yes normal to inspection, No edema and No calf tenderness Skin General: warm and dry. Normal skin color. Normal skin turgor Neuro General: patient oriented x3, gait normal and no focal neuro deficit Cranial nerves: Yes Equal, round and reactive pupils present Cognition (Neuro): normal cognition Gait exam (Neuro): Normal gait present Sensory Exam: No Sensory deficit (Neuro) Psych Appearance: grossly normal Affect: normal affect Attitude: cooperative Thought process: Normal thought process present Coding Level of Care Code Est Pt Level 4 (53647) Diagnoses Burning sensation R20.8 HTN (hypertension) I10 Assessment & Plan Assessment & Plan (1) Burning sensation: Code(s): R20.8 - Other disturbances of skin sensation Category: Medical Plan: She notes ongoing bumps to her lateral thighs with persistent burning sensation for the past 10 years. She had dermatology consult with [facility] 2 years ago and was told the bumps are internal and not dermatological related issues. Normal exam of the skin/thighs with no bumps appreciated at this time. However, patient insisted she feels bumps in her thighs. Will order an ultrasound of both lateral thighs. Encouraged to continue to take gabapentin as prescribed as it should help with the burning sensation to her thighs. She may take Tylenol ibuprofen as needed. Encouraged to get fasting lab work done and follow-up in 2 months for hypertension and labs review or sooner with worsening or new symptoms. Verbalized understanding and agreed with treatment plan. (2) HTN (hypertension): Code(s): I10 - Essential (primary) hypertension Category: Medical Plan: Resting blood pressure is controlled, 134/70. Continue current treatment regimen. Low-sodium diet encouraged. Follow-up in 2 months or sooner with symptoms or concerns. Verbalized understanding and agreed with treatment plan. Orders: Orders US extremity nonvascular Today R20.8 - Other disturbances of skin sensation
[2024-07-07 15:09] VITALS: BP 155/70; PULSE 63; RESP 16; TEMP 36.4; O2SAT 97; BMI 34.7
[2024-07-07 15:33] VITALS: BP 134/70
== END 2024-07-07 16:18 | disposition home or self-care (01) ==
PROVIDERS: PCP Nurse Practitioner Family; Visit Provider Nurse Practitioner Family
DX: R20.8 Other disturbances of skin sensation (principal); I10 Essential (primary) hypertension

== ENCOUNTER → 2024-07-07 14:56 | Outpatient (BNVA) | payer OTHER, SELFPAY | PROVIDERS: PCP Nurse Practitioner Family; Visit Provider Nurse Practitioner Family | DX: R20.8 Other disturbances of skin sensation (principal); I10 Essential (primary) hypertension | CPT/HCPCS: 96127; 99212 ==

== ENCOUNTER 2024-07-22 12:48 | Outpatient (REF) | payer MEDICARE, SELFPAY ==
--- NOTE | ~2024-07-22 | XR_ITS ---
EXAMINATION: XR KNEE, LEFT CLINICAL INFORMATION: M25.569 - Pain in unspecified knee COMPARISON: None available. TECHNIQUE: Four views of the left knee. FINDINGS: There is severe loss of medial compartment joint space with moderate periarticular spurring. There lateral and the patellofemoral compartment joint spaces preserved. No visible acute fracture, dislocation or subluxation seen. No bony erosive changes. XR/XR knee LT 3V IMPRESSION: Moderate degenerative changes medial compartment left knee. Electronically signed by: Frankie Meng MD 07/22/2024 03:47 PM EST
--- NOTE | ~2024-07-22 | XR_ITS ---
EXAMINATION: XR KNEE, RIGHT CLINICAL INFORMATION: M25.569 - Pain in unspecified knee COMPARISON: None available. TECHNIQUE: 3 views of the right knee. FINDINGS: There is mild loss of medial compartment joint space with periarticular spurring. The lateral and patellofemoral compartment joint space is preserved. There is no visible acute fracture, dislocation or subluxation seen. The soft tissues are normal. XR/XR knee RT 3V IMPRESSION: Mild degenerative changes medial compartment right knee with periarticular spurring. Electronically signed by: Frankie Meng MD 07/22/2024 03:30 PM EST
--- OUTSIDE RECORDS SUMMARY | 2024-07-22 14:56 | XMS_ITS | Referral Summary ---
Author Organization [facility] Address [address] [place] [address] Care Team Providers Care Camp Nurse Name Role Phone Song Cooney MD Primary Care Provider Encounters Date Type Department Care Team Description 05/14/2024 Refill [facility]rology [facility] [address] [place] [phone] Keith Conrad MD Seizure-like activity (HCC); Intractable chronic migraine without aura and without status migrainosus 05/14/2024 Refill [facility] [address] [place] [phone] Keith Conrad MD Seizure-like activity (HCC); Intractable chronic migraine without aura and without status migrainosus 05/12/2024 Refill [facility] [address] [place] [address] Keith Conrad MD Seizure-like activity (HCC); Intractable [...] different from the original. PT-1 Request Number [id number] is Approved, 2 visits per month for [...] appointments with the headache/migraine providers here at [facility]. She has since found a new provider for headache/migraine in the [facility] area who will be doing her [...] me now that I have returned to [facility]. Regarding the episodes that she [...] HD: Reportedly was evaluated at a genetics center/[place] center in [place], but those records are not available. Plans to be evaluated at genetics clinic at [facility]. - Continue Lamotrigine 200 mg [...] patient would prefer somewhere closer to home ([place]) - Ambulatory EEG pending - Seizure/Fall precautions [...] Description 12/09/2024 11:00 AM EDT Office Visit [facility] Neurology [facility] [address] [place] [address] Keith Conrad MD [address] [place] [address] Medical Devices Implanted Type Area Traffic Safety Administrator Device Identifier Shelf Expiration Date Model / Serial / Lot Device Closure Vascular 5fr Vascade - [id number] Implanted:Qty: 1 on 11/30/2022 at [facility] Implant [employer] 08/22/2024 700-500D X- [id number] / / [id number] Procedures * Due to [place] [employer] law, this organization might not be sharing negative HIV tests. Procedure Name Priority Date/Time Associated Diagnosis Comments COMPREHENSIVE METABOLIC PANEL Routine 12/13/2023 2:02 PM EDT Seizure-like activity (HCC) from Last 3 Months or Most Recently Relevant to Health Maintenance Results * Due to [place] [employer] law, this organization might not be sharing negative HIV tests. * (ABNORMAL) Comprehensive Metabolic Panel (12/13/2023 2:02 PM EDT) NA 139 135 - 145 mmol/L 12/13/2023 3:29 PM EDT [facility] K 4.6 3.5 - 5.3 mmol/L 12/13/2023 3:29 PM EDT [facility] Cl 100 98 - 107 mmol/L 12/13/2023 3:29 PM EDT [facility] CO2 28 24 - 32 mmol/L 12/13/2023 3:29 PM EDT [facility] Anion Gap 11 5 - 15 12/13/2023 3:29 PM EDT [facility] Glucose 112(H) 65 - 99 mg/dL 12/13/2023 3:29 PM EDT [facility] Creatinine 0.68 0.50 - 1.20 mg/dL 12/13/2023 3:29 PM EDT [facility] Calcium 10.5 8.6 - 10.5 mg/dL 12/13/2023 3:29 PM EDT [facility] Total Protein 6.9 6.0 - 8.0 g/dL 12/13/2023 3:29 PM EDT [facility] Albumin 4.8 3.5 - 5.2 g/dL 12/13/2023 3:29 PM EDT [facility] Bilirubin, Total 0.2 0.2 - 1.2 mg/dL 12/13/2023 3:29 PM EDT [facility] Alkaline Phosphatase 71 35 - 129 U/L 12/13/2023 3:29 PM EDT [facility] AST 16 10 - 40 U/L 12/13/2023 3:29 PM EDT [facility] ALT 22 10 - 40 U/L 12/13/2023 3:29 PM EDT [facility] BUN 10 7 - 23 mg/dL 12/13/2023 3:29 PM EDT [facility] eGFR >90 >=60 mL/min/1. 73m2 12/13/2023 3:29 PM EDT [facility] Comment: The estimated glomerular [...] - 4.2 g/dL 12/13/2023 3:29 PM EDT [facility] A/G Ratio 2.3 1.5 - 3.0 12/13/2023 3:29 PM EDT [facility] Blood Structure of peripheral vein / Unknown Venipuncture / Unknown 12/13/2023 2:02 PM EDT 12/13/2023 2:31 PM EDT us Keith Conrad MD LAB BLOOD ORDERABLES Final Resul t [email or web address] [address] [place] [address], from Last 3 Months or Most Recently Relevant to Health Maintenance Insurance Advance Directives Documents on File Type Date Recorded Patient Glass Sander Expl anation Health Care Proxy 11/24/2022 1:13 PM HEALTH CARE PROXY SCANNED IN Care Teams Camp Nurse Relationship Specialty Start Date End Date Song Cooney MD [address] [place] [address] PCP - General 04/27/23
--- OUTSIDE RECORDS SUMMARY | 2024-07-22 14:56 | XMS_ITS | Encounter Summary ---
Author Organization [facility] Address [address] [place] [address] Care Team Providers Care Cco Name Role Phone Song Cooney MD Primary Care Provider Reason for Visit * Reason Onset Date Comments cs appointment new botox 11/29/2022 Encounter Details Date Type Department Care Team (Late st Contact Info) Description 11/29/2022 Telephone [facility] Central Scheduling Department [address] [place] [address] Telephone Intake, Staff cs appointment new botox [...] to schedule appointment. DT send TE Kenya: [phone] Thank you documented in this encounter Plan of Treatment Upcoming Encounters Date Type Department Care Team (Late st Contact Info) Description 12/09/2024 11:00 AM EDT Office Visit [facility] Neurology Clinic [address] [place] [address] Keith Conrad MD [address] [place] [address] documented as of this encounter Visit Diagnoses Not on filedocumented in this encounter Care Teams Cco Relationship Specialty Start Date End Date Song Cooney MD [address] [place] [address] PCP - General 04/27/23 documented as of this encounter
--- OUTSIDE RECORDS SUMMARY | 2024-07-22 14:56 | XMS_ITS | Encounter Summary ---
Author Organization [facility] Address [address] [place] [address] Care Team Providers Care Battery Container Tester Name Role Phone Song Cooney MD Primary Care Provider Encounter Details Date Type Department Care Team (Late st Contact Info) Description 08/02/2022 Orders Only [facility] Neurology [facility] [address] [place] [phone] Shantel Cardoza MD [address] [place] [address] Headache syndrome; Transient neurological symptoms Social History [...] Description 12/09/2024 11:00 AM EDT Office Visit [facility] Neurology Clinic [address] [place], [place] [phone] Keith Conrad MD [address] [place] [address] documented as of this encounter Results * Due to [place] state law, this organization might not be sharing negative HIV tests. * Ambulatory EEG (08/02/2022 12:38 PM EST) Narrative Shantel Cardoza MD - 08/02/2022 12:38 PM EST Shantel Cardoza MD ? 08/02/2022 ??2:32 PM [facility] 3-DAY AMBULATORY CONTINUOUS VIDEO-EEG REPORT Patient: Kenya [...] and placement protocol in person by an wired music operator for the purposes of recording long-term video [...] and referential electrode montages. The patient or spa receptionist was instructed to keep an event log [...] discharges or ictal build up. Single Channel Sleep Lab Technologist: Rhythm: regular Rate (typical): ~ 66 bpm [...] symptoms documented in this encounter Care Teams Battery Container Tester Relationship Specialty Start Date End Date Song Cooney MD [address] [place] [address] PCP - General 04/27/23 documented as of this encounter
--- OUTSIDE RECORDS SUMMARY | 2024-07-22 14:56 | XMS_ITS | Encounter Summary ---
Author Organization [facility] Address [address] [place] [address] Care Team Providers Care Electric Well Logging Operator Name Role Phone Song Cooney MD Primary Care Provider Reason for Visit * Reason Onset Date Comments Appointment 09/28/2021 Encounter Details Date Type Department Care Team (Late st Contact Info) Description 09/28/2021 Telephone [facility] Central Scheduling Department [address] [place] [phone] Telephone Intake, Staff Appointment Social History Tobacco [...] Keith Conrad rescheduling appt today 09/28 re pharmacy delivery driver is having car issues Per DT, rescheduled to 12/[address] Conrad documented in this encounter Plan of Treatment Upcoming Encounters Date Type Department Care Team (Late st Contact Info) Description 12/09/2024 11:00 AM EDT Office Visit [facility] Neurology Clinic [address] [place] [address] Keith Conrad MD [address] [place] [address] documented as of this encounter Visit Diagnoses Not on filedocumented in this encounter Care Teams Electric Well Logging Operator Relationship Specialty Start Date End Date Song Cooney MD [address] [place] [address] PCP - General 04/27/23 documented as of this encounter
--- OUTSIDE RECORDS SUMMARY | 2024-07-22 14:56 | XMS_ITS | Encounter Summary ---
Author Organization [facility] Address [address] [place] [address] Care Team Providers Care Client Retention Specialist Name Role Phone Song Cooney MD Primary Care Provider Reason for Visit * Reason Onset Date Comments Referral Request 08/23/2021 Encounter Details Date Type Department Care Team (Late st Contact Info) Description 08/23/2021 Telephone Central Scheduling Department [address] [place] [address] Telephone Intake, Staff Referral Request Social History [...] 2:12 PM EST PT returning call from [facility] regarding a referral to a specialist. I tried front office specialist but was unable to get ahold of anyone. Please reach out to PT with any information. documented in this encounter Plan of Treatment Upcoming Encounters Date Type Department Care Team (Late st Contact Info) Description 12/09/2024 11:00 AM EDT Office Visit [facility] Neurology Clinic [address] [place] [address] Keith Conrad MD [address] [place] [address] documented as of this encounter Visit Diagnoses Not on filedocumented in this encounter Care Teams Client Retention Specialist Relationship Specialty Start Date End Date Song Cooney MD [address] [place] [address] PCP - General 04/27/23 documented as of this encounter
--- OUTSIDE RECORDS SUMMARY | 2024-07-22 14:56 | XMS_ITS | Encounter Summary ---
Author Organization [facility] Address [address] [place] [address] Care Team Providers Care Community Liaison Officer Name Role Phone Song Cooney MD Primary Care Provider Encounter Details Date Type Department Care Team (Late st Contact Info) Description 07/19/2021 myChart Message [facility] Neurology Clinic [address] [place] [phone] Jackie Ritchie [place] Medication question Social History [...] Description 12/09/2024 11:00 AM EDT Office Visit [facility] Neurology Clinic [address] [place], [place] [phone] Keith Conrad MD [address] [place], [place] [phone] documented as of this encounter Visit Diagnoses Not on filedocumented in this encounter Care Teams Community Liaison Officer Relationship Specialty Start Date End Date Song Cooney MD [address] [place] [address] PCP - General 04/27/23 documented as of this encounter
--- OUTSIDE RECORDS SUMMARY | 2024-07-22 14:56 | XMS_ITS | Clinical Summary ---
Author Organization [facility] Address [address] [place] [address] Care Team Providers Care Head Of Global Strategic Partnerships Name Role Phone Song Cooney MD Primary [...] different from the original. PT-1 Request Number [id number] is Approved, 2 visits per month for [...] appointments with the headache/migraine providers here at [facility]. She has since found a new provider for headache/migraine in the [facility] area who will be doing [...] me now that I have returned to [facility]. Regarding the episodes that she calls seizures, [...] evaluated at a genetics center/[place] in [place], but those records are not available. Plans to be evaluated at genetics clinic at [facility]. - Continue Lamotrigine 200 mg [...] patient would prefer somewhere closer to home ([place]) - Ambulatory EEG pending - Seizure/Fall precautions at all times - Seizure and headache diary recommended - Genetic testing consultation scheduled. (+FH of HD) - Follow up in 3-4 months Resolved Problems Problem Noted Date Diagnosed Date Resolved Date Seizure 12/17/2020 12/13/2023 Encounters Date Type Department Care Team Description 05/14/2024 Refill [facility] Neurology Clinic [address] [place] [address] Keith Conrad MD Seizure-like activity (HCC); Intractable chronic migraine without aura and without status migrainosus 05/14/2024 Refill [facility] Clinic [address] [place] [address] Keith Conrad MD Seizure-like activity (HCC); Intractable chronic migraine without aura and without status migrainosus 05/12/2024 Refill [facility] Clinic [address] [place] [address] Keith Conrad MD Seizure-like activity (HCC); Intractable [...] 12/09/2024 11:00 AM EDT Office Visit [facility] Neurology Clinic [address] [place] [address] Keith Conrad MD [address] [place], [place] [phone] Health Maintenance Due Date Last Done Comments [...] this topic Medical Devices Implanted Type Area Food Storeroom Clerk Device Identifier Shelf Expiration Date Model / Serial / Lot Device Closure Vascular 5fr Vascade - [id number] Implanted:Qty: 1 on 11/30/2022 at [facility] [employer] 08/22/2024 700-500D X- [id number] / / [id number] Procedures * Due to [place] [employer] law, this organization might not be sharing negative HIV tests. Procedure Name Priority Date/Time Associated Diagnosis Comments COMPREHENSIVE METABOLIC PANEL Routine 12/13/2023 2:02 PM EDT Seizure-like activity (HCC) from Last 3 Months or Most Recently Relevant to Health Maintenance Results * Due to [facility] law, this organization might not be sharing negative HIV tests. * (ABNORMAL) Comprehensive Metabolic Panel (12/13/2023 2:02 PM EDT) NA 139 135 - 145 mmol/L 12/13/2023 3:29 PM EDT [facility] K 4.6 3.5 - 5.3 mmol/L 12/13/2023 3:29 PM EDT [facility] Cl 100 98 - 107 mmol/L 12/13/2023 3:29 PM EDT [facility] CO2 28 24 - 32 mmol/L 12/13/2023 3:29 PM EDT [facility] Anion Gap 11 5 - 15 12/13/2023 3:29 PM EDT [facility] Glucose 112(H) 65 - 99 mg/dL 12/13/2023 3:29 PM EDT [facility] Creatinine 0.68 0.50 - 1.20 mg/dL 12/13/2023 3:29 PM EDT [facility] Calcium 10.5 8.6 - 10.5 mg/dL 12/13/2023 3:29 PM EDT [facility] Total Protein 6.9 6.0 - 8.0 g/dL 12/13/2023 3:29 PM EDT [facility] Albumin 4.8 3.5 - 5.2 g/dL 12/13/2023 3:29 PM EDT [facility] Bilirubin, Total 0.2 0.2 - 1.2 mg/dL 12/13/2023 3:29 PM EDT [facility] Alkaline Phosphatase 71 35 - 129 U/L 12/13/2023 3:29 PM EDT [facility] AST 16 10 - 40 U/L 12/13/2023 3:29 PM EDT [facility] ALT 22 10 - 40 U/L 12/13/2023 3:29 PM EDT [facility] BUN 10 7 - 23 mg/dL 12/13/2023 3:29 PM EDT [facility] eGFR >90 >=60 mL/min/1. 73m2 12/13/2023 3:29 PM EDT [facility] Comment: The estimated glomerular filtration rate (eGFR) is calculated using a new formula developed by the NKF-ASN task force to eliminate race-based correction factors. The new formula uses serum/plasma creatinine, age, and gender to determine eGFR. A value below 60mls/min might indicate kidney disease and will be flagged. For additional information, see Mruguia et al, Am J Kidney Dis. 2021;79(2):268-288, [...] - 4.2 g/dL 12/13/2023 3:29 PM EDT [facility] A/G Ratio 2.3 1.5 - 3.0 12/13/2023 3:29 PM EDT [facility] Blood Structure of peripheral vein / Unknown Venipuncture / Unknown 12/13/2023 2:02 PM EDT 12/13/2023 2:31 PM EDT us Keith Conrad MD LAB BLOOD ORDERABLES Final Resul t [facility] [address] [place] [address], [place] from Last 3 Months or Most Recently Relevant to Health Maintenance Insurance [place] [id number] Advance Directives Documents on File Type Date Recorded Patient Disability Benefits Specialist Expl anation Health Care Proxy 11/24/2022 1:13 PM HEALTH CARE PROXY SCANNED IN Care Teams Head Of Global Strategic Partnerships Relationship Specialty Start Date End Date Song Cooney MD [address] [place] [address] PCP - General 04/27/23
--- OUTSIDE RECORDS SUMMARY | 2024-07-22 14:56 | XMS_ITS | Encounter Summary ---
Author Organization [facility] Address [address] [place] [address] Care Team Providers Care Cardiology Rn Name Role Phone Song Cooney MD Primary Care Provider Encounter Details Date Type Department Care Team (Late st Contact Info) Description 03/22/2022 Telephone [facility] Neurology Clinic [address] [place] [address] Telephone Intake, Staff Social History Tobacco Use [...] - 03/27/2022 10:38 AM EDT PT-1 Number: [id number] Neurology Clinic - EXP: 03/23/2023 Treatment Details [...] Description 12/09/2024 11:00 AM EDT Office Visit [facility] Neurology Clinic [address] [place] [address] Keith Conrad MD [address] [place] [address] documented as of this encounter Visit Diagnoses Not on filedocumented in this encounter Care Teams Cardiology Rn Relationship Specialty Start Date End Date Song Cooney MD [address] [place] [address] PCP - General 04/27/23 documented as of this encounter
--- OUTSIDE RECORDS SUMMARY | 2024-07-22 14:56 | XMS_ITS | Encounter Summary ---
Author Organization [facility] Address [address] [place] [address] Care Team Providers Care Folding Machine Operator Name Role Phone Song Cooney MD Primary Care Provider Encounter Details Date Type Department Care Team (Late st Contact Info) Description 07/22/2021 Telephone [facility] Neurology Clinic [address] [place] [address] [phone] Telephone Intake, Staff Social History Tobacco Use [...] Rakan - 07/22/2021 4:[address] Conrad, Pt called requesting a call back from you to discuss findings from Dr. Lisseth Hurst whom you referred her to regarding Harjeets. Pt may be reached at [phone] documented in this encounter Plan of Treatment Upcoming Encounters Date Type Department Care Team (Late st Contact Info) Description 12/09/2024 11:00 AM EDT Office Visit [facility] Neurology Clinic [address] [place] [address] Keith Conrad MD [address] [place] [address] documented as of this encounter Visit Diagnoses Not on filedocumented in this encounter Care Teams Folding Machine Operator Relationship Specialty Start Date End Date Song Cooney MD [address] [place] [address] PCP - General 04/27/23 documented as of this encounter
--- OUTSIDE RECORDS SUMMARY | 2024-07-22 14:56 | XMS_ITS | Clinical Summary ---
Author Organization [address] [facility] Address [address] [place] [address] Phone Care Team Providers Care Park Interpretive Specialist Name Role Phone Physician, No Pcp Primary [...] 09/04/2023 Venous insufficiency 09/04/2023 Overview (04/29/2024): Per [facility] records. Carpal tunnel syndrome 04/25/2023 Chronic headache 04/25/2023 GERD (gastroesophageal reflux disease) HTN (hypertension) 04/25/2023 Memory changes 04/25/2023 Mixed incontinence 04/25/2023 Overview (04/29/2024): Last Assessment & Plan: Per [facility] records Obesity (BMI 35.0-39.9 without comorbidity) 04/02 Seizure 04/25/2023 Encounters Date Type Department Care Team Description 06/10/2024 12:50 PM EST - 06/10/2024 11:59 PM EST Hospital Encounter [facility] Ultrasound [address] [place] [phone] Thyroid nodule Discharge Disposition: Home or Self Care 05/09/2024 Telephone Pulmonolgy - [place] [address] [facility] [address] [place] [address] Sha Diamond MD from Last [...] 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 Kathryn's disease GERD (gastroesophageal reflux disease) DX:GERD (gastroesophageal [...] 10:30 AM EST Office Visit [facility]olgy - [place] [address] [facility] [address] [place] [phone] Sha Diamond MD [address] [facility] [place] [address] [place] [address] Health Maintenance Due Date Last Done Comments [...] Signed Date: 06/10/2024 14:36 ET Workstation ID: [id number] Transcribed By: Self Edit Transcribed Date: 06/10/2024 [...] Signed Date: 06/10/2024 14:36 ET Workstation ID: [id number] Transcribed By: Self Edit Transcribed Date: 06/10/2024 14:28 ET Sha Diamond MD IMG US PROCEDURES * Fine needle aspiration (06/10/2024 1:45 PM EST) Final Diagnosis A. Thyroid, right thyroid nodule, fine needle aspiration, (ThinPrep, direct smears): Benign (Glasgow Category II). Consistent with follicular nodular disease 06/11/2024 2:46 PM EST [facility] Specimen A Adequacy Satisfactory for evaluation 06/11/2024 2:46 PM EST [facility] Gross Description A. Thyroid, right thyroid nodule: Received in Cytolyt 30 ml of red fluid; 1 ThinPrep,3 pap stained 3 air dried . 06/11/2024 2:46 PM EST [facility] Intraoperative Consultation A. Thyroid, right thyroid nodule: FNA Adequate, J.S 06/11/2024 2:46 PM EST [facility] Disclaimer Unless otherwise specified, all tissue is 10% NB formalin fixed and paraffin embedded. Technical cytopathology services provided by [facility], at [address] [place] [address] (IA # [id number]/Tigre Irving MD, Group Practice Pediatrician.) 06/11/2024 2:46 PM EST [facility] Fine Needle Aspirate Thyroid structure / Unknown 06/10/2024 1:45 PM EST 06/10/2024 3:01 PM EST Saw Brown MD LAB PATHOLOGY RIGO DELAROSA [facility] [address] [place] [address], * Annual BMP Blood Test (12/13/2023) Pathologist [facility] Annual BMP Blood Test Abstracted Historical Provider MD PRIMO ARELLANO * Hepatitis C Screening (08/06/2023) [facility] Hepatitis C Screening Abstracted Historical Provider MD PRIMO ARELLANO E * (ABNORMAL) Lipid panel (08/06/2023) [facility] LDL/HDL Ratio 5(A) 0 - 4 Triglycerides 157(A) 0 - 150 mg/dL Cholesterol 223(A) 0 - 200 mg/dL HDL 46 40 mg/dL LDL Cholesterol 146(A) 0 - 100 mg/dL Blood Venous blood specimen / Unknown Historical Provider LAB BLOOD ORDERAB LES from Last 3 Months or Most Recently Relevant to Health Maintenance Care Teams Park Interpretive Specialist Relationship Specialty Start Date End Date Physician, No Pcp PCP - General 05/27/24
--- OUTSIDE RECORDS SUMMARY | 2024-07-22 14:57 | XMS_ITS | Encounter Summary ---
Author Organization [facility] Address [address] [place] [address] Care Team Providers Care Customer Care Professional Name Role Phone Song Cooney MD Primary Care Provider Reason for Visit * Reason Onset Date Comments Patient has questions 04/27/2021 Pt of Ricky Devries; Pt of Anamaria Encounter Details Date Type Department Care Team (Late st Contact Info) Description 04/27/2021 Telephone [facility] [address] [place] [address] Telephone Intake, Staff Patient has questions [...] advise. * Telephone Encounter - Elena Gordon [place] - 04/27/2021 2:15 PM EDT Patient calling to request headache order She is unsure of a location and will call us back with that information thanks documented in this encounter Plan of Treatment Upcoming Encounters Date Type Department Care Team (Late st Contact Info) Description 12/09/2024 11:00 AM EDT Office Visit [facility] [address] [place] [address] Keith Conrad MD [address] [place] [address] documented as of this encounter Visit Diagnoses Not on filedocumented in this encounter Care Teams Customer Care Professional Relationship Specialty Start Date End Date Song Cooney MD [address] [place] [address] PCP - General 04/27/23 documented as of this encounter
--- OUTSIDE RECORDS SUMMARY | 2024-07-22 14:57 | XMS_ITS | Encounter Summary ---
Author Organization [facility] Address [address] [place] [address] Care Team Providers Care Rf Test Engineer Name Role Phone Song Cooney MD Primary Care Provider Encounter Details Date Type Department Care Team (Late st Contact Info) Description 01/11/2021 Sociable Labshart Message [facility] [address] [place] [address] Iván Clinton MD [address] [place] [address] Test Results Question Social History Tobacco Use [...] Description 12/09/2024 11:00 AM EDT Office Visit [facility] [address] [place], [place] [phone] Keith Conrad MD [address] [place], [place] [phone] documented as of this encounter Visit Diagnoses Not on filedocumented in this encounter Care Teams Rf Test Engineer Relationship Specialty Start Date End Date Song Cooney MD [address] [place] [address] PCP - General 04/27/23 documented as of this encounter
--- OUTSIDE RECORDS SUMMARY | 2024-07-22 14:57 | XMS_ITS | Encounter Summary ---
Author Organization [facility] Address [address] [place] [address] Care Team Providers Care Search Engineer Name Role Phone Song Cooney MD Primary Care Provider Encounter Details Date Type Department Care Team (Late Contact Info) Description 03/02/2021 Telephone [facility] [address] [place] [address] [phone] Telephone Intake, Staff Social History Tobacco Use [...] Description 12/09/2024 11:00 AM EDT Office Visit [facility] [address] [place] [address] Keith Conrad MD [address] [place] [address] documented as of this encounter Visit Diagnoses Not on filedocumented in this encounter Care Teams Search Engineer Relationship Specialty Start Date End Date Song Cooney MD [address] [place] [address] PCP - General 04/27/23 documented as of this encounter
--- OUTSIDE RECORDS SUMMARY | 2024-07-22 14:57 | XMS_ITS | Encounter Summary ---
Author Organization [facility] Address [address] [place] [address] Care Team Providers Care Operator Technician Name Role Phone Song Cooney MD Primary Care Provider Reason for Visit * Reason Onset Date Comments Send message to Dr. Conrad 04/04/2021 Pt of Conrad EEG home device not working 04/04/2021 Encounter Details Date Type Department Care Team (Late st Contact Info) Description 04/04/2021 Telephone [facility] [address] [place] [address] Telephone Intake, Staff Send message to [...] device sent to her in the mail? #[phone] * Telephone Encounter - Siomara Meghan - [...] be reached at her home number at [phone]. Thank you documented in this encounter Plan of Treatment Upcoming Encounters Date Type Department Care Team (Late st Contact Info) Description 12/09/2024 11:00 AM EDT Office Visit [facility] [address] [place] [address] Keith Conrad MD [address] [place] [address] documented as of this encounter Visit Diagnoses Not on filedocumented in this encounter Care Teams Operator Technician Relationship Specialty Start Date End Date Song Cooney MD [address] [place] [address] PCP - General 04/27/23 documented as of this encounter
--- OUTSIDE RECORDS SUMMARY | 2024-07-22 14:57 | XMS_ITS | Encounter Summary ---
Author Organization [facility] Address [address] [place] [address] Care Team Providers Care Census Enumerator Name Role Phone Song Cooney MD Primary Care Provider Reason for Visit * Reason Onset Date Comments Med Refill 07/15/2021 Encounter Details Date Type Department Care Team (Late st Contact Info) Description 07/15/2021 Telephone [facility] [address] [place] [address] Telephone Intake, Staff Med Refill Social [...] route your response back to the [facility] Neurology Admin Staff Pool. Thank you documented in this encounter Plan of Treatment Upcoming Encounters Date Type Department Care Team (Late st Contact Info) Description 12/09/2024 11:00 AM EDT Office Visit [facility] [address] [place] [address] Keith Conrad MD [address] [place] [address] documented as of this encounter Visit Diagnoses Not on filedocumented in this encounter Care Teams Census Enumerator Relationship Specialty Start Date End Date Song Cooney MD [address] [place] [address] PCP - General 04/27/23 documented as of this encounter
--- OUTSIDE RECORDS SUMMARY | 2024-07-22 14:57 | XMS_ITS | Encounter Summary ---
Author Organization [facility] Address [address] [place] [address] Care Team Providers Care Quality Assurance Supervisor Final Name Role Phone Song Cooney MD Primary Care Provider Encounter Details Date Type Department Care Team (Late st Contact Info) Description 03/01/2021 Telephone [facility] [address] [place] [address] [phone] Telephone Intake, Staff Social History Tobacco Use [...] Description 12/09/2024 11:00 AM EDT Office Visit [facility] [address] [place] [address] Keith Conrad MD [address] [place] [address] documented as of this encounter Visit Diagnoses Not on filedocumented in this encounter Care Teams Quality Assurance Supervisor Final Relationship Specialty Start Date End Date Song Cooney MD [address] [place] [address] PCP - General 04/27/23 documented as of this encounter
--- OUTSIDE RECORDS SUMMARY | 2024-07-22 14:57 | XMS_ITS | Encounter Summary ---
Author Organization [facility] Address [address] [place] [address] Care Team Providers Care Expediter Service Order Name Role Phone Song Cooney MD Primary Care Provider Reason for Visit * Reason Onset Date Comments request to speak with nurse 04/18/2021 Dr Mumtaz cochran med question 04/18/2021 Encounter Details Date Type Department Care Team (Late st Contact Info) Description 04/18/2021 Telephone [facility] [address] [place] [address] Telephone Intake, Staff request to speak [...] is looking for a facility/office in the [facility]. She will speak with her pcp about potential clinic. She didn't have any other questions at this time. #[phone] * Telephone Encounter - Sharon Bay RN - 04/18/2021 3:09 PM EDT Pt called to report that the PCP refused to prescribe the diclofenac for the pt that is a neurologymedication. The pt stated that her previous neurologist Dr Arias from [facility] is who originally prescribed it for her. [...] call back from nurse Katherine Keita # [phone] Please route your response back to the [facility] Neurology Admin Staff Pool. Thank you documented in this encounter Plan of Treatment Upcoming Encounters Date Type Department Care Team (Late st Contact Info) Description 12/09/2024 11:00 AM EDT Office Visit [facility] [address] [place] [address] Keith Conrad MD [address] [place] [address] documented as of this encounter Visit Diagnoses Not on filedocumented in this encounter Care Teams Expediter Service Order Relationship Specialty Start Date End Date Song Cooney MD [address] [place] [address] PCP - General 04/27/23 documented as of this encounter
== END 2024-07-22 12:49 | disposition home or self-care (01) ==
LOC: HO.HOSX 12:48
PROVIDERS: PCP Internal Medicine; Visit Provider Physician Assistant
DX: M17.0 Bilateral primary osteoarthritis of knee (principal)
CPT/HCPCS: 73562; 99212

== ENCOUNTER 2024-07-22 12:48 | Outpatient (AMB) | payer MEDICARE, SELFPAY ==
--- NOTE | 2024-07-22 12:49 | A.OFFVIS_ITS ---
Vital Signs 07/22/24 13:01 Height 5 ft 4 in Weight 202 lb BMI 34.7 Intake Visit Reasons: OV - B/L knee OA, last inj 04/17/24, w. xrays Intake Note: Kenya is a 54 year old female who presents today for a follow up for her Bilateral knee OA, last injections 04/17/24. Patient reports her last injections didn't give her relief and she is wanting to get gel injections. She mentions if she can get a new x ray done. Allergies baclofen Allergy (Intermediate, Verified 07/22/24 12:57) Dizziness latex [LATEX] Allergy (Unknown, Verified 07/22/24 12:57) RASH codeine [Codeine] Adverse Reaction (Unknown, Verified 07/22/24 12:57) NAUSEOUS HPI HPI OV - B/L knee OA, last inj 04/17/24, w. xrays: Details: Ms. Crespo is a 54-year-old female with a past medical history significant for seizures, last being roughly 6 months ago. She presents to the office today for ongoing bilateral knee pain left greater than right. Her last cortisone injections were 04/17/2024 where she reports little relief. She is looking to discuss surgical intervention versus gel injections. 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 No ecchymosis, erythema, or joint effusion. No tenderness to palpation to the medial or lateral joint lines. Full knee extension and flexion. Crepitus felt with ROM, right worse then left. NVI. Assessment & Plan Assessment & Plan (1) Osteoarthritis of right knee: Code(s): M17.11 - Unilateral primary osteoarthritis, right knee Category: Medical Qualifiers: Osteoarthritis type: unspecified Qualified Code(s): M17.11 - Unilateral primary osteoarthritis, right knee (2) Osteoarthritis of left knee: Code(s): M17.12 - Unilateral primary osteoarthritis, left knee Category: Medical Qualifiers: Osteoarthritis type: unspecified Qualified Code(s): M17.12 - Unilateral primary osteoarthritis, left knee Plan Ms. Crespo is a 54-year-old female with a past medical history significant for seizures, last being roughly 6 months ago. She presents to the office today for ongoing bilateral knee pain left greater than right. Her last cortisone injections were 04/17/2024 where she reports little relief. While in the office today to discuss the options of surgical intervention versus repeat cortisone injection versus gel injection. The patient reports she would not like to repeat cortisone injection because it was not helpful at the last appointment in April. She is looking for a more permanent fix to her pain and difficulty with ambulation. I discussed the case with Dr. Vega who is amenable to see the patient to discuss total knee arthroplasty on the left knee. Our nurse navigator, Quita, was available to meet with the patient while in the office today. Her follow-up will be with Dr. Vega, sooner if needed. Repeat x-rays of bilateral knees obtained in the office today are available for my review and reveal bilateral knee osteoarthritis left greater than right. Orders: Orders XR knee RT 3V Today M25.569 - Pain in unspecified knee XR knee LT 3V Today M25.569 - Pain in unspecified knee Coding Level of Care Code Est Pt Level 4 (75102) Diagnoses Osteoarthritis of right knee, unspecified osteoarthritis type M17.11 Osteoarthritis type: unspecified Osteoarthritis of left knee, unspecified osteoarthritis type M17.12 Osteoarthritis type: unspecified
[2024-07-22 13:01] VITALS: BMI 34.7
--- OUTSIDE RECORDS SUMMARY | 2024-07-22 14:24 | XMS_ITS | Encounter Summary ---
Author Organization [facility] Address [address] [place] [address] Care Team Providers Care Lorry Weigher Name Role Phone Song Cooney MD Primary Care Provider Reason for Visit * Reason Onset Date Comments Send message to Dr. Conrad 04/04/2021 Pt of Conrad EEG home device not working 04/04/2021 Encounter Details Date Type Department Care Team (Late st Contact Info) Description 04/04/2021 Telephone [facility] [address] [place] [address] Telephone Intake, Staff Send message to Dr. Conrad (Pt of Anamaria); EEG home device not working Social History Tobacco Use Types Packs/Day Years Used Date Smoking Tobacco: Never Smokeless Tobacco: Never Alcohol Use Standard Drinks/Week Comments Not Currently 0 (1 standard drink = 0.6 oz pur e alcohol) Comments Unknown Sex and Gender Information Value Date Recorded Sex Assigned at Female 12/26/2020 5:18 PM EDT Legal Sex Female 6:59 PM EDT Gender Identity Female 12/26/2020 5:18 PM EDT Sexual Orientation Straight 12/26/2020 5: 18 PM EDT documented as of this encounter Miscellaneous Notes * Telephone Encounter - Sharon Bay RN - 04/04/2021 12:09 PM EDT Spoke with pt. Due to a technical difficulty with the EEG device the [facility] took it back. The pt neverhad the EEG reading started before the device issue. She would like a new device. Can we have a device sent to her in the mail? #[phone] * Telephone Encounter - Siomara Meghan - 04/04/2021 10:45 AM EDT Pt stopped by our department after her neurodiagnostics appt. Pt stated she had her EEG from 04/01 to Sunday04/03/21, however the equipment only worked on Sunday04/03/21. Pt stated that she had received multiple calls from the service department for the EEG and she was told there was a bad wifi connection on the company's end and that the machine hadn't been turned on until Sunday. Kenya wanted to be sure you received this message because she heard from neurodiagnostics that you may have been told that the equipment worked fine all weekend. Pt is wondering if you have enough information from the one day testing or should this test be scheduled again? Patient can be reached at her home number at [phone]. Thank you documented in this encounter Plan of Treatment Upcoming Encounters Date Type Department Care Team (Late st Contact Info) Description 12/09/2024 11:00 AM EDT Office Visit [facility] [address] [place] [phone] Keith Conrad MD [address] [place] [address] documented as of this encounter Visit Diagnoses Not on filedocumented in this encounter Care Teams Lorry Weigher Relationship Specialty Start Date End Date Song Cooney MD [address] [place] [id number] PCP - General 04/27/23 documented as of this encounter
--- OUTSIDE RECORDS SUMMARY | 2024-07-22 14:24 | XMS_ITS | Encounter Summary ---
Author Organization [facility] Address [address] [place] [address] Care Team Providers Care Multimedia Producer Name Role Phone Song Cooney MD Primary Care Provider Reason for Visit * Reason Onset Date Comments Med Refill 07/15/2021 Encounter Details Date Type Department Care Team (Late st Contact Info) Description 07/15/2021 Telephone [facility] [address] [place] [address] Telephone Intake, Staff Med Refill Social History Tobacco Use Types Packs/Day Years [...] encounter Miscellaneous Notes * Telephone Encounter - Claire Burns Carly - 07/15/2021 3:51 PM EST recvd call from pt looking for a refill on divalproex DR (DEPAKOTE) 250 mg EC tablet Went to confirm dosage what is listed 250 mg, oral, 2 times daily She states she is taking 2 - times a day Last time she got rx refilled was 01/13/2021 With assistance of [place] Team not finding RX with New directions - did explain that to patient She then mentioned that she will adjust other seizure medications Advised her we did not give her instructions to do so [place] Team will send alert to provider for review Please route your response back to the [facility] Neurology Admin Staff Pool. Thank you documented in this encounter Plan of Treatment Upcoming Encounters Date Type Department Care Team (Late st Contact Info) Description 12/09/2024 11:00 AM EDT Office Visit [facility] [address] [place] [address] Keith Conrad MD [address] [place] [address] documented as of this encounter Visit Diagnoses Not on filedocumented in this encounter Care Teams Multimedia Producer Relationship Specialty Start Date End Date Song Cooney MD [address] [place] [address] PCP - General 04/27/23 documented as of this encounter
--- OUTSIDE RECORDS SUMMARY | 2024-07-22 14:24 | XMS_ITS | Encounter Summary ---
Author Organization [facility] Address [address] [place] [address] Care Team Providers Care Operating Room Nurse Name Role Phone Song Cooney MD Primary Care Provider Reason for Visit * Reason Onset Date Comments Patient has questions 04/27/2021 Pt of Ricky Devries; Pt of Anamaria Encounter Details Date Type Department Care Team (Late st Contact Info) Description 04/27/2021 Telephone [facility] [address] [place] [address] Telephone Intake, Staff Patient has questions (Pt of Ricky Devries; Pt of Anamaria) Social History Tobacco Use Types Packs/Day Years [...] encounter Miscellaneous Notes * Telephone Encounter - Ricky Devries NP - 05/02/2021 4:22 PM EDT * Telephone Encounter - Siomara Tijerina 05/02/2021 4:04 PM EDT Patient states that she was advised by Ricky Devries to go to see a headache specialist. Pt called backconfused asking isn't that we do in the neurology clinic? Patient is asking if we know what services a headache specialist may offer that we don't offer here? She also asked if you have any recommendations for a headache specialist in the area? Please advise. * Telephone Encounter - Elena Gordon oNrwood - 04/27/2021 2:15 PM EDT Patient calling to request headache order She is unsure of a location and will call us back with that information thanks documented in this encounter Plan of Treatment Upcoming Encounters Date Type Department Care Team (Late st Contact Info) Description 12/09/2024 11:00 AM EDT Office Visit [facility] [address] [place] [address] Keith Conrad MD [address] [place] [address] documented as of this encounter Visit Diagnoses Not on filedocumented in this encounter Care Teams Operating Room Nurse Relationship Specialty Start Date End Date Song Cooney MD [address] [place] [id number] PCP - General 04/27/23 documented as of this encounter
--- OUTSIDE RECORDS SUMMARY | 2024-07-22 14:24 | XMS_ITS | Patient Health Record ---
Author Organization [facility] Address [address] [place] [address] Care Team Providers Care Display Specialist Name Role Phone Balbir Castro Primary Care Provider [phone] Ricky Devries Unavailable Unavailable Allergies Allergen (clinical drug ingredient) Drug/Non Drug Allergy documented on EMR Reaction Allergy Type Onset Date Status Codeine Phosphate nausea and vomiting Drug Allergy Active Latex Latex rash Allergy Active Reason For Referral No Information Medications Medication SIG (Take, Route, Frequency, Duration) Notes Start Date End Date Status Gabapentin 600 MG 1 tablet Orally thre e times daily Active Omeprazole 40 MG 1 capsule 30 minutes before morning meal Orally twice a day Active lamoTRIgine ER 200 MG 1 tablet Orally tw ice a day Active amLODIPine Besy-Benazepril HCl 10-20 MG TAKE 1 CAPSULE BY MOUTH TWICE A DAY for 90 Active Propranolol HCl 40 MG 1 tablet Orally Tw ice a day Active Meclizine HCl 25 MG 1 tablet as needed O rally prn Active Divalproex Sodium 500 MG 1 tablet Orally Twice a day Active Social History Household Question Answer Notes Marital status: 04/2020. lives w/ son, Jaxon. Sister Asia lives downstairs. no p[ets. 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 (477685497) Localization-relate d (focal) (partial) symptomatic epilepsy and epileptic syndromes with complex partial seizures, intractable, without status epilepticus (G40.219) Active confirmed Problem Chronic intractable migraine without aura (097268378621341 ) Chronic migraine without aura, intractable, with status migrainosus (G43.711) Active confirmed Problem Transient ischemic attack (888192378) 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 Plan Of Treatment No Information Insurance Providers Payer Name Payer Address Payer Phone Subscriber Number Group Number Insured Name Patient Relationship to Insured Coverage Start Date Coverage End Date [place] Medicaid [address] [place] [address] [id number] Kenya Awad Self - patient is the insured Medical (General) History Medical History History ICD Code seizure disorder HTN gerd Surgical History Surgery Date(Month/Year) FRITZ w/o uterine fibroids 2010 carpal tunnel repair bilat resection flank lipoma in 20s Hospitalization History Reason Date(Month/Year) [facility] (yc hiatry-dreamy state, hallucinations) x 5 d 2017
--- OUTSIDE RECORDS SUMMARY | 2024-07-22 14:24 | XMS_ITS | Encounter Summary ---
Author Organization [facility] Address [address] [place] [address] Care Team Providers Care Zipper Ironer Name Role Phone Song Cooney MD Primary Care Provider Reason for Visit * Reason Onset Date Comments Referral Request 08/23/2021 Encounter Details Date Type Department Care Team (Late st Contact Info) Description 08/23/2021 Telephone [facility] Central Scheduling Department [address] [place] [phone] Telephone Intake, Staff Referral Request Social History Tobacco Use Types Packs/Day Years [...] encounter Miscellaneous Notes * Telephone Encounter - Erin Putnam - 08/23/2021 5:26 PM EST Called patient left voicemail to return call back * Telephone Encounter - Lizzette Neumann - 08/23/2021 2:12 PM EST PT returning call from [facility] regarding a referral to a specialist. I tried senior front end web developer but was unable to get ahold of anyone. Please reach out to PT with any information. documented in this encounter Plan of Treatment Upcoming Encounters Date Type Department Care Team (Late st Contact Info) Description 12/09/2024 11:00 AM EDT Office Visit [facility] [address] [place] [address] Keith Conrad MD [address] [place] [address] documented as of this encounter Visit Diagnoses Not on filedocumented in this encounter Care Teams Zipper Ironer Relationship Specialty Start Date End Date Song Cooney MD [address] [place] [address] PCP - General 04/27/23 documented as of this encounter
--- OUTSIDE RECORDS SUMMARY | 2024-07-22 14:24 | XMS_ITS | Encounter Summary ---
Author Organization [facility] Address [address] [place] [address] Care Team Providers Care Bacon Slicer Name Role Phone Song Cooney MD Primary Care Provider Reason for Visit * Reason Onset Date Comments request to speak with nurse 04/18/2021 Dr Mumtaz cochran med question 04/18/2021 Encounter Details Date Type Department Care Team (Late st Contact Info) Description 04/18/2021 Telephone [facility] [address] [place] [address] Telephone Intake, Staff request to speak with nurse (Dr Conrad ); med question Social History Tobacco Use Types Packs/Day Years [...] Telephone Encounter - Sharon Bay RN - 04/19/2021 11:45 AM EDT Spoke with pt that AILYN Devries has referral for headache clinic available. Pt is looking for a facility/office in the [facility]. She will speak with her pcp about potential clinic. She didn't have any other questions at this time. #[phone] * Telephone Encounter - Sharon Bay RN - 04/18/2021 3:09 PM EDT Pt called to report that the PCP refused to prescribe the diclofenac for the pt that is a neurologymedication. The pt stated that her previous neurologist Dr Arias from [facility] is who originally prescribed it for her. She last saw Dr Arias 10/2020. I asked if she could go back to the Dr, she said no. I told her that I would let Dr Conrad know. But he advised against increasing or (even using) diclofenac for chronic headaches not usual strategy and may lead to rebound headaches. * Telephone Encounter - Claire Carroll - 04/18/2021 12:29 PM EDT Caller: patient Reason for call - requests a call back Provider: Dr Conrad Would like to talk about her medication. recvd call from patient she is hoping for a call back from nurse Katherine Keita # [phone] Please route your response back to the [facility] Neurology Admin Staff Pool. Thank you documented in this encounter Plan of Treatment Upcoming Encounters Date Type Department Care Team (Late st Contact Info) Description 12/09/2024 11:00 AM EDT Office Visit [facility] [address] [place] [address] Keith Conrad MD [address] [place] [address] documented as of this encounter Visit Diagnoses Not on filedocumented in this encounter Care Teams Bacon Slicer Relationship Specialty Start Date End Date Song Cooney MD [address] [place] [address] PCP - General 04/27/23 documented as of this encounter
--- OUTSIDE RECORDS SUMMARY | 2024-07-22 14:24 | XMS_ITS | Encounter Summary ---
Author Organization [facility] Address [address] [place] [address] Care Team Providers Care Graduate School Dean Name Role Phone Song Cooney MD Primary Care Provider Encounter Details Date Type Department Care Team (Late st Contact Info) Description 07/22/2021 Telephone [facility] [address] [place] [address] [phone] Telephone Intake, Staff Social History Tobacco Use Types Packs/Day Years [...] encounter Miscellaneous Notes * Telephone Encounter - Keith Conrad MD - 08/09/2021 11:24 AM EST Attempted to call again, no response. * Telephone Encounter - Keith Conrad MD - 07/28/2021 2:06 PM EST Attempted to call. No response. Will follow-up * Telephone Encounter - Sirena Rakan - 07/22/2021 4:[address] Conard, Pt called requesting a call back from you to discuss findings from Dr. Lisseth Hurst whom you referred her to regarding Harjeets. Pt may be reached at [phone] documented in this encounter Plan of Treatment Upcoming Encounters Date Type Department Care Team (Late st Contact Info) Description 12/09/2024 11:00 AM EDT Office Visit [facility] [address] [place] [address] Keith Conrad MD [address] [place] [address] documented as of this encounter Visit Diagnoses Not on filedocumented in this encounter Care Teams Graduate School Dean Relationship Specialty Start Date End Date Song Cooney MD [address] [place] [address] PCP - General 04/27/23 documented as of this encounter
--- OUTSIDE RECORDS SUMMARY | 2024-07-22 14:24 | XMS_ITS | Encounter Summary ---
Author Organization [facility] Address [address] [place] [address] Care Team Providers Care Pin Pusher Name Role Phone Song Cooney MD Primary Care Provider Encounter Details Date Type Department Care Team (Late st Contact Info) Description 07/19/2021 myChart Message [facility] [address] [place] [address] Jackie Ritchie [place] Medication question Social History Tobacco Use Types Packs/Day [...] PM EDT documented as of this encounter Plan of Treatment Upcoming Encounters Date Type Department Care Team (Late st Contact Info) Description 12/09/2024 11:00 AM EDT Office Visit [facility] [address] [place], [place] [phone] Keith Conrad MD [address] [place], [place] [phone] documented as of this encounter Visit Diagnoses Not on filedocumented in this encounter Care Teams Pin Pusher Relationship Specialty Start Date End Date Song Cooney MD [address] [place] [address] PCP - General 04/27/23 documented as of this encounter
--- OUTSIDE RECORDS SUMMARY | 2024-07-22 14:24 | XMS_ITS | Encounter Summary ---
Author Organization [facility] Address [address] [place] [address] Care Team Providers Care Senior Cytogenetics Laboratory Director Name Role Phone Song Cooney MD Primary Care Provider Encounter Details Date Type Department Care Team (Late st Contact Info) Description 03/01/2021 Telephone [facility] [address] [place] [address] [phone] Telephone Intake, Staff Social History Tobacco Use Types Packs/Day Years Used Date Smoking Tobacco: Never Smokeless Tobacco: Never Comments Unknown Sex and Gender Information Value Date Recorded Sex Assigned at Female 12/26/2020 5:18 PM EDT Legal Sex Female 6:59 PM EDT Gender Identity Female 12/26/2020 5:18 PM EDT Sexual Orientation Straight 12/26/2020 5: 18 PM EDT documented as of this encounter Miscellaneous Notes * Telephone Encounter - Sirena Bledsoe - 03/01/2021 8:18 AM EDT Mariely, I'm trying to reschedule this pt as you are unavailable on 03/25. She really needs to see you due tomedication issues and her liver. Would you be able to see her on 04/01 at 12:00pm? Otherwise your next available is until June and she can't wait until then. Please advise. documented in this encounter Plan of Treatment Upcoming Encounters Date Type Department Care Team (Late st Contact Info) Description 12/09/2024 11:00 AM EDT Office Visit [facility] [address] [place] [phone] Keith Conrad MD [address] [place] [address] documented as of this encounter Visit Diagnoses Not on filedocumented in this encounter Care Teams Senior Cytogenetics Laboratory Director Relationship Specialty Start Date End Date Song Cooney MD [address] [place] [address] PCP - General 04/27/23 documented as of this encounter
--- OUTSIDE RECORDS SUMMARY | 2024-07-22 14:24 | XMS_ITS | Encounter Summary ---
Author Organization [facility] Address [address] [place] [address] Care Team Providers Care Senior Care Manager Name Role Phone Song Cooney MD Primary Care Provider Encounter Details Date Type Department Care Team (Late Contact Info) Description 03/02/2021 Telephone [facility] [address] [place] [address] [phone] Telephone Intake, Staff Social History Tobacco Use [...] * Telephone Encounter - Sirena Bledsoe - 03/02/2021 1:41 PM EDT Mariely, Disregard my previous message as we were able to reschedule this pt with another provider. documented in this encounter Plan of Treatment Upcoming Encounters Date Type Department Care Team (Late st Contact Info) Description 12/09/2024 11:00 AM EDT Office Visit [facility] [address] [place] [address] Keith Conrad MD [address] [place] [address] documented as of this encounter Visit Diagnoses Not on filedocumented in this encounter Care Teams Senior Care Manager Relationship Specialty Start Date End Date Song Cooney MD [address] [place] [address] PCP - General 04/27/23 documented as of this encounter
--- OUTSIDE RECORDS SUMMARY | 2024-07-22 14:24 | XMS_ITS | Encounter Summary ---
Author Organization [facility] Address [address] [place] [address] Care Team Providers Care Division Controller Name Role Phone Song Cooney MD Primary Care Provider Encounter Details Date Type Department Care Team (Late st Contact Info) Description 08/02/2022 Orders Only [facility] [address] [place] [address] Shantel Cardoza MD [address] [place] [address] Headache syndrome; Transient neurological symptoms Social History Tobacco Use Types Packs/Day Years [...] Description 12/09/2024 11:00 AM EDT Office Visit [facility] [address] [place], [place] [phone] Keith Conrad MD [address] [place] [phone] documented as of this encounter Results * Due to [place] state law, this organization might not be sharing negative HIV tests. * Ambulatory EEG (08/02/2022 12:38 PM EST) Narrative Shantel Cardoza MD - 08/02/2022 12:38 PM EST Shantel Cardoza MD ? 08/02/2022 ??2:32 PM [facility] 3-DAY AMBULATORY CONTINUOUS VIDEO-EEG REPORT Patient: Kenya Crespo : 1970 Start Date/Time: 07/03/2022, 15:12 Stop Date/Time: 07/06/2022, 09:47 Object: 52 y.o. female who presents clinical suspicion of epilepsy or seizure Neuroactive Medications: Current Outpatient Medications: ??amLODIPine-benazepriL (LOTREL) 10-20 mg per capsule, Take 1 capsule by mouth once a day., Disp: , Rfl: ??divalproex DR (DEPAKOTE) 250 mg EC tablet, TAKE 2 TABLETS BY MOUTH TWICE A DAY, Disp: 360 tablet, Rfl: 1 ??gabapentin (NEURONTIN) 300 mg capsule, Take 3 capsules (900 mg total) by mouth 3 times a day. Increase to this dose as directed, Disp: 270 capsule, Rfl: 5 ??galcanezumab-gnlm 120 mg/mL pen injector, Inject 1 mL (120 mg total) under the skin every 28 days for 2 doses. For initial loading dose, inject 2 pens, 1 mL each for a total of 2 mL under the skin. Follow this with a single injection every 28 days., Disp: 2 mL, Rfl: 0 ??lamoTRIgine (LaMICtal) 25 mg tablet, Take 8 tablets (200 mg total) by mouth 2 times a day., Disp: 480 tablet, Rfl: 11 ??magnesium oxide (MAG-OX) 400 mg (241.3 mg mag) tablet, Take 1 tablet (400 mg total) by mouth once a day., Disp: 30 tablet, Rfl: 2 ??meclizine (ANTIVERT) 25 mg tablet, TAKE 1 TABLET BY MOUTH 3 TIMES A DAY NEEDED FOR NAUSEA AND VOMITING, Disp: , Rfl: ??omeprazole (PriLOSEC) 20 mg capsule, Take 40 mg by mouth 2 times a day. ??, Disp: , Rfl: ??propranoloL (INDERAL) 40 mg tablet, Take 40 mg by mouth 2 times a day., Disp: , Rfl: ??riboflavin, vitamin B2, 400 mg tablet, Take 1 tablet (400 mg total) by mouth once a day., Disp: 30 tablet, Rfl: 3 Recording Conditions: Twenty-five (25) disposable electrodes were applied according to the standard 10-20 international measurement and placement protocol in person by an rn psychiatric for the purposes of recording long-term video EEG: (19) cephalic, (2) T1/T2 sub-temporal, (1) ground, (1) system reference, and (2) ECG, with video recording. EEG recording was at a sampling rate of 200 samples per second, per channel. This recording was performed for ~3 days (67 hours 35 minutes) in wakefulness and sleep. The record was read using reformatted bipolar and referential electrode montages. The patient or breastfeeding program coordinator was instructed to keep an event log to record and describe any clinical events as well as to note the patient's activity during the recording. Activation procedures: none EEG Background: Symmetry: symmetric Voltage: normal Anterior-posterior (AP) gradient: present Predominant background frequency: beta [>13 Hz], alpha Posterior dominant ( alpha ) rhythm: present: 9-10 Hz Continuity: continuous Reactivity: reactive (PDR attenuates with eye opening) State changes: present with normal stage N2 sleep transients (K-complexes and sleep spindles) Focal slowing. ??There were intermittent and occasional runs of semirhythmic to irregular delta slowing at 1-4 Hz seen in the left, right and bilateral frontotemporal areas. Sporadic Epileptiform Discharges: none; There were rare left frontotemporal sharp transients, none of which reached criteria for sharp waves. Electrographic and Electroclinical Seizures: none Marked Events and Other Clinical Events: There were 17 clinical events reported in patients diary corresponding to 21 push button events (as she pushed the button more than once for some of her events) as below: 07/03/2022 at 4:27 PM (corresponding to push button at 4:29 PM): ?? no description entered for the event in the diary; clinically patient off camera. ??Electrographically there were no epileptiform discharges or ictal build up. 07/03/2022 at 5:39 PM (corresponding to push button at 5:41 PM): ?? no description entered for the event in the diary; clinically patient walks into the room and pushes the button. ?? Electrographically there were no epileptiform discharges or ictal build up. 07/04/2022 at 12:48 AM (corresponding to push button at 12:50 AM): ?? no description entered for the event in the diary; clinically patient is sitting in chair with no clinical signs of a seizure. ?? Electrographically there were no epileptiform discharges or ictal build up. 07/04/2022 at 9:48 AM (corresponding to push button at 9:50 AM): ?? no description entered for the event in the diary; clinically patient off camera. ??Electrographically there were no epileptiform discharges or ictal build up. 07/04/2022 at 10:27 AM (corresponding to push button at 10:29 AM): ?? no description entered for the event in the diary; ??clinically patient is partially off camera (no clinical signs noted). ?? Electrographically there were no epileptiform discharges or ictal build up. 07/04/2022 at 5:49 PM (corresponding to push button at 5:51 PM, 5;51 PM and 5:52 PM): ??no description entered for the event in the diary; clinically patient off camera. ??Electrographically there were no epileptiform discharges or ictal build up. 07/04/2022 at 7:24 PM (corresponding to push button at 7:26 PM): ?? no description entered for the event in the diary; clinically patient off camera. ??Electrographically there were no epileptiform discharges or ictal build up. 07/04/2022 at 11:07 PM (corresponding to push button at 11:09 PM): ?? no description entered for the event in the diary; clinically patient off camera. ??Electrographically there were no epileptiform discharges or ictal build up. 07/04/2022 at 11:13 PM (corresponding to push button at 11:15 PM): ?? no description entered for the event in the diary; clinically patient is sitting in chair with no clinical signs of a seizure. She gets up and gets off camera view before pushing button. Electrographically there were no epileptiform discharges or ictal build up. 07/04/2022 at 11:53 PM (corresponding to push button at 11:55 PM): ?? no description entered for the event in the diary; clinically patient off camera. ??Electrographically there were no epileptiform discharges or ictal build up. 07/05/2022 at 12:33 AM (corresponding to push button at 12:35 AM): ?? no description entered for the event in the diary; clinically patient is sitting in chair with no clinical signs of a seizure. Electrographically there were no epileptiform discharges or ictal build up. ?12. 07/05/2022 at 1:43 AM (corresponding to push button at 1:45 AM): ??patient reported in her diary feeling crappy, nauseous, pain worse in the head, I'm getting hot . Clinically patient is sitting in the chair with no clinical signs. Electrographically there were no epileptiform discharges or ictal build up. ?13. 07/05/2022 at 2:13 PM (corresponding to push button at 2:15 PM and 2:16 PM): ??no description entered for the event in the diary; clinically patient off camera. ??Electrographically there were no epileptiform discharges or ictal build up. 14. 07/05/2022 at 2:24 PM (corresponding to push button at 2:26 PM): ??Clinically patient reported in her diary Nauseous, feeling crappy, pain increase in my head, have trouble thinking, clumsy. This happens when I have them. Then it backs off then I have them again. Electrographically there were no epileptiform discharges or ictal build up. 15. 07/05/2022 at 5:26 PM (corresponding to push button at 5:28 PM): Clinically patient reported in her diary Feeling nauseous, pain worsened. She is off camera. ??Electrographically there were no epileptiform discharges or ictal build up. 16. 07/05/2022 at 5:44 PM (corresponding to push button at 5:46 PM): Clinically patient reported in her diary I having another, feeling sick, , nauseous, head pain worsened. She is ??sitting with no clinical signs in the camera. ??Electrographically there were no epileptiform discharges or ictal build up. 17. 07/05/2022 at 6:02 PM (corresponding to push button at 6:04 PM): ??Clinically patient reported in her diary Nauseous and head pain increasing, I'm having another. She is sitting in a chair in the camera. ??Electrographically there were no epileptiform discharges or ictal build up. Single [employer] Order Scheduler: Rhythm: regular Rate (typical): ~ 66 bpm Other: none EEG Classification: ABNORMAL Summary of Findings: This ~ 3-day ambulatory EEG is mildly abnormal due to presence of intermittent and occasional focal delta slowing in the right, left and bilateral frontotemporal areas. ??There were rare left frontotemporal sharp transients, none of which reached criteria for sharp waves. Seventeen clinical events reported. ??Clinically in 8/17 patient was off camera and in 9/17 there was no apparent clinical correlate in the video. ??Patient reported feeling nauseated having pain in her head or having trouble concentrating or being clumsy in 5/17 in her diary. ??Electrographically, 17/17 events had no apparent epileptiform discharges or ictal build up. Interpretation: Based on this 3-day ambulatory video-EEG monitoring, 17/17 patient reported had no apparent electrographic correlate. ??The intermittent focal slowing in the bilateral fronto-temporal areas suggests presence of (bi)focal cerebral dysfunction of nonspecific etiology. Sharp transients are not necessarily abnormal. Shantel Cardoza MD Staff Epileptologist 08/02/2022 12:38 PM Keith Conrad MD NEUROLOGY ORDERABLES Final Resul t documented in this encounter Visit Diagnoses Diagnosis Headache syndrome Transient neurological symptoms documented in this encounter Care Teams Division Controller Relationship Specialty Start Date End Date Song Cooney MD [address] [place] [address] PCP - General 04/27/23 documented as of this encounter
--- OUTSIDE RECORDS SUMMARY | 2024-07-22 14:24 | XMS_ITS | Referral Summary ---
Author Organization [facility] Address [address] [place] [address] Care Team Providers Care Buttonhole Facer Name Role Phone Song Cooney MD Primary Care Provider Encounters Date Type Department Care Team Description 05/14/2024 Refill [facility] Neurology [facility] [address] [place] [phone] Keith Conrad MD Seizure-like activity (HCC); Intractable chronic migraine without aura and without status migrainosus 05/14/2024 Refill [facility] [address] [place] [phone] Keith Conrad MD Seizure-like activity (HCC); Intractable chronic migraine without aura and without status migrainosus 05/12/2024 Refill [facility] [address] [place] [phone] Keith Conrad MD Seizure-like activity (HCC); Intractable chronic migraine without aura and without status migrainosus from Last 3 Months Allergies Active Allergy Reactions Criticality Noted Date Comments Baclofen Unknown 05/10/2022 hallucinations Codeine Vomiting 12/17/2020 Latex Hives,Itching 12/17/2020 Medications * This document contains information received from the source organization and may not represent a complete record from that organization. propranoloL (INDERAL) 40 mg tablet Take 40 mg by mouth 2 times a day. 1 Active meclizine (ANTIVERT) 25 mg tablet TAKE 1 TABLET BY MOUTH 3 TIMES A DAY NEEDED FOR NAUSEA AND VOMITING 1 Active amLODIPine-benaz epriL (LOTREL) 10-20 mg per capsule Take 1 capsule by mouth once a day. 1 Active mupirocin (BACTROBAN) 2% ointment APPLY TO AFFECTED AREA TWICE A DAY FOR DRYNESS AND ITCHING IN THE EARS 2 Active omeprazole (PriLOSEC) 40 mg capsule SMARTSI Capsule(s) By Mouth Twice Daily 3 Active multivitamin capsule Take 1 capsule by mouth once a day. Active vitamin B complex vit C no.4 (SUPER B COMPLEX + C ORAL) Take 1 tablet by mouth once a day. Active ascorbic acid (VITAMIN C) 500 mg tablet Take 500 mg by mouth once a day. Active calcium carbonate (OS-MYRTLE) 500 mg calcium (1,250 mg) tablet Take 1 tablet by mouth once a day. Active POTASSIUM ORAL Take by mouth. Pt cannot recall how many mEq Active triamcinolone acetonide (KENALOG) 0.1% cream SMARTSIG:Topi myrtle Twice Daily PRN 3 Active atorvastatin (LIPITOR) 10 mg tablet Take 10 mg by mouth nightly. 4 Active ondansetron (ZOFRAN) 4 mg tablet Take 4 mg by mouth every 8 hours as needed for nausea or vomiting. Active gabapentin (NEURONTIN) 600 mg tabletIndication s:Seizure-like activity (HCC),Intractabl e chronic migraine without aura and without status migrainosus Take 2 tablets (1,200 mg total) by mouth 3 times a day. 540 tablet [address] (DEPAKOTE) 250 mg EC tabletIndication s:Seizure-like activity (HCC),Intractabl e chronic migraine without aura and without status migrainosus Take 2 tablets (500 mg total) by mouth every morning AND 2 tablets (500 mg total) every evening. 360 tablet 3 4 Active lamoTRIgine (LaMICtal) 25 mg tabletIndication s:Seizure-like activity (HCC),Intractabl e chronic migraine without aura and without status migrainosus Take 8 tablets (200 mg total) by mouth 2 times a day 1440 tablet 11 4 Active Active Problems Patient Care Coordination No te Formatting of this note migh t be different from the original. PT-1 Request Number [id number] is Approved, 2 visits per month for 12 months as of 03/29/2021, exp. 03/28/2022, patient is aware. Problem Noted Date Diagnosed Date Carpal tunnel syndrome on both sides 05/29/2022 GERD (gastroesophageal reflux disease) 2 Migraine headache 05/29/2022 Assessment & Plan (12/13/2023 2:36 PM EDT): Patient continues to have daily headaches, somewhat worsened since she stopped getting regular Botox injections. She had a change of insurance provider, and reports that she was unable to schedule appointments with the headache/migraine providers here at [facility]. She has since found a new provider for headache/migraine in the [facility] area who will be doing her Botox in the near future. Thus, I will defer to her dedicated headache/migraine providers regarding treatment for that condition at this point. Of note, she is taking APAP multiple times per day every day, and I specifically recommended weaning off of this, limiting acute rescue treatments to 2-3 times per week to minimize risk of medication overuse/rebound headache. Mixed incontinence 05/29/2022 Class 2 obesity 05/29/2022 Dyspareunia, female 05/29/2022 Nonintractable episodic headache 12/21/2020 Intractable chronic cluster headache 12/17/2020 High blood pressure 02/28/2015 Memory change 02/28/2015 Seizure-like activity Overview (12/13/2023): First known seizure-like episode: 2014 Etiology: Unknown Ddx: Functional neurological events (i.e., PNES) vs migraine-related vs less likely occult/atypical epilepsy Updated ASMs: LTG 200 mg po bid, VPA 500 mg po bid, GBP 1200 mg po 3 times a day Assessment & Plan (12/13/2023 2:34 PM EDT): Patient presents today to reestablish care with me now that I have returned to [facility]. Regarding the episodes that she calls seizures, they are significantly reduced in frequency on the current medication regimen (GBP, VPA, LTG). That being said, the episodes remain somewhat vague and nonspecific by description, and all objective testing to date (e.g. multiple ambulatory EEG studies) has not been consistent with or supportive of a diagnosis of epilepsy. Thus, the etiology of her episodes remains unclear. I am somewhat suspicious for functional neurological events (i.e. PNES), which we discussed, however the patient seems to have poor insight into this possibility after discussion. Response to the ASMs alone does not necessarily imply a diagnosis of epilepsy either given their relatively nonspecific mechanisms of action and use in treating other conditions. We specifically discussed the current lack of evidence for epilepsy and potential side effects of the medications she is taking. In any case, given the clear improvement on the current medication regiment, we will not make any changes to her medications today. Continue divalproex, lamotrigine, gabapentin at current doses without any changes. Check labs today. Assessment & Plan (04/27/2023 1:40 PM EDT): This is a 53 y.o. female with history of chronic refractory headache syndrome and transient neurological symptoms (?seizure). Prior ambulatory EEGs here has been normal, without IEDs or seizures, despite sxs captured. The last ambulatory EEG (08/2022) had some rare left frontotemporal sharp transients, none of which reached criteria for sharp waves and intermittent focal slowing in bilateral frontotemporal area of nonspecific etiology. All push buttons were typical events and did not correlate with EEG changes. Since the last visit, events have decreased in frequency. She is receiving Botox for migraines, which has been somewhat helpful. She asked about further optimization of medications but as her headaches and seizures are improving, I recommend continuing Botox a bit longer and keeping a diary of headaches/seizures. I also discussed PT for recent falls and imbalance. She is agreeable but would prefer to check to see if insurance will cover the service prior to submitting a referral. - Continue Lamotrigine 200 mg twice daily - Continue Divalproex DR 500 mg twice daily - Continue Gabapentin 1200 mg 3 times a day - Continue follow up in the headache clinic - Event/Headache diary recommended - Consider PT referral for gait/strength training due to falls - Seizure/Fall precautions - Follow up in 8 months Assessment & Plan (10/25/2022 10:43 AM EDT): This is a 52 y.o. female with history of chronic refractory headache syndrome and transient neurological symptoms (?seizure). Prior ambulatory EEGs here has been normal, without IEDs or seizures, despite sxs captured. The last ambulatory EEG (08/2022) had some rare left frontotemporal sharp transients, none of which reached criteria for sharp waves and intermittent focal slowing in bilateral frontotemporal area of nonspecific etiology. All push buttons were typical events and did not correlate with EEG changes. Migrainous headache syndrome, intractable: she seems to have had some benefit from increased Gabapentin dose but still with daily headaches. Follows up now in headache clinic. Reports Emgality is not effective. Discussed Botox as next line of treatment. 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 Reported FH of HD: Reportedly was evaluated at a genetics center/[place] [facility] in [place], but those records are not available. Plans to be evaluated at genetics clinic at [facility]. - Continue Lamotrigine 200 mg twice daily - Continue Divalproex DR 500 mg twice daily - Continue Gabapentin 900 mg 3 times a day. - Lab work ordered - Continue follow up in the headache clinic - Plan for diagnostic cerebral angiogram in October 2022 - Continue follow up in genetics clinic - Event/Headache diary recommended - Seizure/Fall precautions - Follow up in 6 months Assessment & Plan (03/31/2021 1:17 PM EDT): Kenya Crespo is a 50 y.o. right handed woman with history of seizures presenting for evaluation and management of seizures. EEG and MRI brain both read as normal. Semiology highly suspicious for non epileptic events (e.g. extended duration of events occurring multiple times daily, no transient alterations of conscsiouness reportedly no epileptiform activity while capturing events on EEG, etc). She has ambulatory EEG scheduled. She has a positive family history of brother and mother with Huntingtons Disease. Genetic testing is scheduled as well. - Increase Gabapentin by 300 mg for 2 weeks - for goal of 600 mg/300 mg/600 mg. She is advised to let us know if headaches worsen or if medications not effective - Continue Lamictal 200mg twice daily - Continue Depakote 250mg twice daily - Discussed referral to headache clinic for further management and evaluation, patient would prefer somewhere closer to home ([place]) - Ambulatory EEG pending - Seizure/Fall precautions at all times - Seizure and headache diary recommended - Genetic testing consultation scheduled. (+FH of HD) - Follow up in 3-4 months Resolved Problems Problem Noted Date Diagnosed Date Resolved Date Seizure 12/17/2020 12/13/2023 Social History Tobacco Use Types Packs/Day Years Used Date Smoking Tobacco: Never Smokeless Tobacco: Never Tobacco Cessation:Counseling Given: Not Answered Comments:Smoked off an on as a teenager. Quit at age 25 Alcohol Use Standard Drinks/Week Comments Not Currently 0 (1 standard drink = 0.6 oz pur e alcohol) rare wine Comments Unknown Sex and Gender Information Value Date Recorded Sex Assigned at Female 12/26/2020 5:18 PM EDT Legal Sex Female 6:59 PM EDT Gender Identity Female 12/26/2020 5:18 PM EDT Sexual Orientation Straight 12/26/2020 5: 18 PM EDT Last Filed Vital Signs Vital Sign Reading Time Taken Comments Blood Pressure 119/73 12/13/2023 12:44 PM EDT Pulse 60 12/13/2023 12:44 PM EDT Temperature 36.6 ??C (97.9 ??F) 12/13/2023 12:44 PM E DT Respiratory Rate 16 12/13/2023 12:44 PM EDT Oxygen Saturation 95% 07/19/2023 1:37 PM EST Inhaled Oxygen Concentration - - Weight 93.4 kg (206 lb) 12/13/2023 12:44 PM EDT Height 162.6 cm (5' 4 ) 12/13/2023 12:44 PM EDT Body Mass Index 35.36 12/13/2023 12:44 PM EDT Plan of Treatment Upcoming Encounters Date Type Department Care Team (Late st Contact Info) Description 12/09/2024 11:00 AM EDT Office Visit [facility] [address] [place] [phone] Keith Conrad MD [address] [place] [phone] Medical Devices Implanted Type Area Radiologic Technologist Chief Device Identifier Shelf Expiration Date Model / Serial / Lot Device Closure Vascular 5fr Vascade - [id number] Implanted:Qty: 1 on 11/30/2022 at [facility] Implant [employer] [facility] 08/22/2024 [id number] / / [id number] Procedures * Due to [place] law, this organization might not be sharing negative HIV tests. Procedure Name Priority Date/Time Associated Diagnosis Comments COMPREHENSIVE METABOLIC PANEL Routine 12/13/2023 2:02 PM EDT Seizure-like activity (HCC) from Last 3 Months or Most Recently Relevant to Health Maintenance Results * Due to [place] law, this organization might not be sharing negative HIV tests. * (ABNORMAL) Comprehensive Metabolic Panel (12/13/2023 2:02 PM EDT) NA 139 135 - 145 mmol/L 12/13/2023 3:29 PM EDT [facility] K 4.6 3.5 - 5.3 mmol/L 12/13/2023 3:29 PM EDT [employer] Cl 100 98 - 107 mmol/L 12/13/2023 3:29 PM EDT [facility] CO2 28 24 - 32 mmol/L 12/13/2023 3:29 PM EDT [facility] Anion Gap 11 5 - 15 12/13/2023 3:29 PM EDT [facility] Glucose 112(H) 65 - 99 mg/dL 12/13/2023 3:29 PM EDT [employer] Creatinine 0.68 0.50 - 1.20 mg/dL 12/13/2023 3:29 PM EDT [employer] Calcium 10.5 8.6 - 10.5 mg/dL 12/13/2023 3:29 PM EDT [employer] Total Protein 6.9 6.0 - 8.0 g/dL 12/13/2023 3:29 PM EDT [facility] Albumin 4.8 3.5 - 5.2 g/dL 12/13/2023 3:29 PM EDT [facility] Bilirubin, Total 0.2 0.2 - 1.2 mg/dL 12/13/2023 3:29 PM EDT [facility] Alkaline Phosphatase 71 35 - 129 U/L 12/13/2023 3:29 PM EDT [facility] AST 16 10 - 40 U/L 12/13/2023 3:29 PM EDT [facility] ALT 22 10 - 40 U/L 12/13/2023 3:29 PM EDT [facility] BUN 10 7 - 23 mg/dL 12/13/2023 3:29 PM EDT [facility] eGFR >90 >=60 mL/min/1. 73m2 12/13/2023 3:29 PM EDT [employer] Comment: The estimated glomerular filtration rate (eGFR) is calculated using a new formula developed by the NKF-ASN task force to eliminate race-based correction factors. The new formula uses serum/plasma creatinine, age, and gender to determine eGFR. A value below 60mls/min might indicate kidney disease and will be flagged. For additional information, see Murguia et al, Am J Kidney Dis. 2021;79(2):268-288, A Unifying Approach for GFR estimation: Recommendations of the NKF-ASN Task Force on Reassessing the Inclusion of Race in Diagnosing Kidney Disease . The estimated glomerular filtration rate (eGFR) is calculated using a new formula developed by the NKF-ASN task force to eliminate race-based correction factors. The new formula uses serum/plasma creatinine, age, and gender to determine eGFR. A value below 60mls/min might indicate kidney disease and will be flagged. For additional information, see Murguia et al, Am J Kidney Dis. 2021;79(2):268-288, A Unifying Approach for GFR estimation: Recommendations of the NKF-ASN Task Force on Reassessing the Inclusion of Race in Diagnosing Kidney Disease . Globulin, Total 2.1 2.1 - 4.2 g/dL 12/13/2023 3:29 PM EDT [facility] A/G Ratio 2.3 1.5 - 3.0 12/13/2023 3:29 PM EDT [facility] Blood Structure of peripheral vein / Unknown Venipuncture / Unknown 12/13/2023 2:02 PM EDT 12/13/2023 2:31 PM EDT us Keith Conrad MD LAB BLOOD ORDERABLES Final Resul t [facility] [address] [place] [address], from Last 3 Months or Most Recently Relevant to Health Maintenance Insurance Advance Directives Documents on File Type Date Recorded Patient Security And Compliance Project Manager Expl anation Health Care Proxy 11/24/2022 1:13 PM HEALTH CARE PROXY SCANNED IN Care Teams Buttonhole Facer Relationship Specialty Start Date End Date Song Cooney MD [address] [place] [address] PCP - General 04/27/23
--- OUTSIDE RECORDS SUMMARY | 2024-07-22 14:24 | XMS_ITS | Encounter Summary ---
Author Organization [facility] Address [address] [place] [address] Care Team Providers Care Professor Of Nursing Name Role Phone Song Cooney MD Primary Care Provider Encounter Details Date Type Department Care Team (Late st Contact Info) Description 03/22/2022 Telephone [facility] Neurology Clinic [address] [place] [phone] Telephone Intake, Staff Social History Tobacco Use [...] encounter Miscellaneous Notes * Telephone Encounter - TORRES Qureshi - 03/27/2022 10:38 AM EDT PT-1 Number: [id number] Neurology Clinic - EXP: 03/23/2023 Treatment Details Duration of services 12 Month(s) Frequency of services 2 visit(s) per Month Transportation Details Member will require a wheelchair van No Member will be accompanied by an escort No Member will require a service animal No * Telephone Encounter - Sirena Bledsoe - 03/22/2022 2:58 PM EDT Jesus Schuster called requesting an updated PT1 Form as it is about to . documented in this encounter Plan of Treatment Upcoming Encounters Date Type Department Care Team (Late st Contact Info) Description 12/09/2024 11:00 AM EDT Office Visit [facility] Neu[facility] [address] [place] [address] Keith Conrad MD [address] [place] [address] documented as of this encounter Visit Diagnoses Not on filedocumented in this encounter Care Teams Professor Of Nursing Relationship Specialty Start Date End Date Song Cooney MD [address] [place] [address] PCP - General 04/27/23 documented as of this encounter
--- OUTSIDE RECORDS SUMMARY | 2024-07-22 14:24 | XMS_ITS | Encounter Summary ---
Author Organization [facility] Address [address] [place] [address] Care Team Providers Care High School Auto Repair Teacher Name Role Phone Song Cooney MD Primary Care Provider Reason for Visit * Reason Onset Date Comments Appointment 09/28/2021 Encounter Details Date Type Department Care Team (Late st Contact Info) Description 09/28/2021 Telephone [facility] Central Scheduling Department [address] [place] [phone] Telephone Intake, Staff Appointment Social History Tobacco Use Types Packs/Day Years [...] encounter Miscellaneous Notes * Telephone Encounter - Zoe Osorio - 09/28/2021 10:14 AM EDT Neurology pt of Dr. 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 Conrad documented in this encounter Plan of Treatment Upcoming Encounters Date Type Department Care Team (Late st Contact Info) Description 12/09/2024 11:00 AM EDT Office Visit [facility] Neurology Clinic [address] [place] [address] Keith Conrad MD [address] [place] [address] documented as of this encounter Visit Diagnoses Not on filedocumented in this encounter Care Teams [employer] Auto Repair Teacher Relationship Specialty Start Date End Date Song Cooney MD [address] [place] [address] PCP - General 04/27/23 documented as of this encounter
--- OUTSIDE RECORDS SUMMARY | 2024-07-22 14:24 | XMS_ITS | Encounter Summary ---
Author Organization [facility] Address [address] [place] [address] Care Team Providers Care Survey Methodologist Name Role Phone Song Cooney MD Primary Care Provider Reason for Visit * Reason Onset Date Comments cs appointment new botox 11/29/2022 Encounter Details Date Type Department Care Team (Late st Contact Info) Description 11/29/2022 Telephone [facility] Central Scheduling Department [address] [place] [phone] Telephone Intake, Staff cs appointment new botox Social History Tobacco Use Types Packs/Day Years Used Date Smoking Tobacco: Never Smokeless Tobacco: Never Comments:Smoked off an on as a teenager. [...] encounter Miscellaneous Notes * Telephone Encounter - Iveth Costello - 11/29/2022 2:25 PM EDT Pt got referral for Botox injections calling to schedule appointment. DT send TE Kenya: [phone] Thank you documented in this encounter Plan of Treatment Upcoming Encounters Date Type Department Care Team (Late st Contact Info) Description 12/09/2024 11:00 AM EDT Office Visit [facility] Neurology Clinic [address] [place] [phone] Keith Conrad MD [address] [place] [address] documented as of this encounter Visit Diagnoses Not on filedocumented in this encounter Care Teams Survey Methodologist Relationship Specialty Start Date End Date Song Cooney MD [address] [place] [address] PCP - General 04/27/23 documented as of this encounter
--- OUTSIDE RECORDS SUMMARY | 2024-07-22 14:24 | XMS_ITS | Clinical Summary ---
Author Organization [facility] Address [address] [place] [address] Care Team Providers Care Regulatory And Compliance Technician Name Role Phone Song Cooney MD Primary Care Provider Allergies Active Allergy Reactions Criticality Noted Date [...] different from the original. PT-1 Request Number [id number] is Approved, 2 visits per month for [...] appointments with the headache/migraine providers here at [facility]. She has since found a new provider for headache/migraine in the [facility] area who will be doing her [...] me now that I have returned to [facility]. Regarding the episodes that she calls [...] HD: Reportedly was evaluated at a genetics center/[facility] in [place], but those records are not available. Plans to be evaluated at genetics clinic at [facility]. - Continue Lamotrigine 200 mg twice daily [...] patient would prefer somewhere closer to home ([place]) - Ambulatory EEG pending - Seizure/Fall precautions at all times - Seizure and headache diary recommended - Genetic testing consultation scheduled. (+FH of HD) - Follow up in 3-4 months Resolved Problems Problem Noted Date Diagnosed Date Resolved Date Seizure 12/17/2020 12/13/2023 Encounters Date Type Department Care Team Description 05/14/2024 Refill [facility] [address] [place] [id number] Keith Conrad MD Seizure-like activity (HCC); Intractable chronic migraine without aura and without status migrainosus 05/14/2024 Refill [facility] [address] [place] [address] Keith Conrad MD Seizure-like activity (HCC); Intractable chronic migraine without aura and without status migrainosus 05/12/2024 Refill [facility] [address] [place] [address] Keith Conrad MD Seizure-like activity (HCC); Intractable chronic migraine without aura and without status migrainosus from Last 3 Months Family History Medical History Relation Name Comments COPD Father Nay's disease Father Brain Aneurysm Maternal Grandmother Dementia Mother Hypertension Mother Brain Aneurysm Sister Relation Name Status Comments Father (Age 53) Maternal Grandmother Mother (Age 71) Sister Social History Tobacco Use Types Packs/Day Years [...] Description 12/09/2024 11:00 AM EDT Office Visit [facility] [address] [place] [address] Keith Conrad MD [address] [place], [place] [phone] Health Maintenance Due Date Last Done Comments Cologuard 1969 Colon Cancer Screening 1969 Colonoscopy 1969 FOBT / Fit Test 1969 HIV Screening 1969 Hepatitis C Screening 1969 Sigmoidoscopy 1969 Hepatitis B Vaccines (1 of 3 - 19+ 3-dose series) 1988 Mammogram 2009 COVID-19 Vaccine ( season) 2024 09/16/2022, 07/04/2021, 11/25/2020, Additional history exists Influenza Vaccine (#1) 2024 , 07/04/2021, 05/11/2020, Additional history exists Alcohol/Substance Use Screening 07/02/2024 Depression Screening and Follow-Up 07/02/2024 08/21/2022 Social Drivers of Health Annual Screening 07/02/2024 Basic Metabolic Panel 12/12/2024 12/13/2023 , 11/24/2022, 10/16/2022, Additional history exists DTaP,Tdap,and Td Vaccines (5 - Td or Tdap) 11/02/2033 11/03/2023, 07/24/2019, 07/04/2019, Additional history exists RSV Vaccine (60+ years old and patients) (1 - 1-dose 75+ series) 2044 Zoster Vaccines Completed 11/03/2023, 07/14/2023 Pneumococcal Vaccine: Pediatric (0-5 Years) and At-Risk Patients (6-64 Years) Aged Out No longer eligible based on patient's age to complete this topic Medical Devices Implanted Type Area Reaming Machine Tender Device Identifier Shelf Expiration Date Model / Serial / Lot Device Closure Vascular 5fr Vascade - [id number] Implanted:Qty: 1 on 11/30/2022 at [facility] [employer] EMM[employer] 08/22/2024 [id number] / / [id number] Procedures * Due to [place] [employer] law, this organization might not be sharing negative HIV tests. Procedure Name Priority Date/Time Associated Diagnosis Comments COMPREHENSIVE METABOLIC PANEL Routine 12/13/2023 2:02 PM EDT Seizure-like activity (HCC) from Last 3 Months or Most Recently Relevant to Health Maintenance Results * Due to [facility] law, this organization might not be sharing negative HIV tests. * (ABNORMAL) Comprehensive Metabolic Panel (12/13/2023 2:02 PM EDT) NA 139 135 - 145 mmol/L 12/13/2023 3:29 PM EDT [facility] K 4.6 3.5 - 5.3 mmol/L 12/13/2023 3:29 PM EDT [facility] Cl 100 98 - 107 mmol/L 12/13/2023 3:29 PM EDT [facility] CO2 28 24 - 32 mmol/L 12/13/2023 3:29 PM EDT [facility] Anion Gap 11 5 - 15 12/13/2023 3:29 PM EDT [facility] Glucose 112(H) 65 - 99 mg/dL 12/13/2023 3:29 PM EDT [facility] Creatinine 0.68 0.50 - 1.20 mg/dL 12/13/2023 3:29 PM EDT [facility] Calcium 10.5 8.6 - 10.5 mg/dL 12/13/2023 3:29 PM EDT [facility] Total Protein 6.9 6.0 - 8.0 g/dL 12/13/2023 3:29 PM EDT [facility] Albumin 4.8 3.5 - 5.2 g/dL 12/13/2023 3:29 PM EDT [facility] Bilirubin, Total 0.2 0.2 - 1.2 mg/dL 12/13/2023 3:29 PM EDT [facility] Alkaline Phosphatase 71 35 - 129 U/L 12/13/2023 3:29 PM EDT [facility] AST 16 10 - 40 U/L 12/13/2023 3:29 PM EDT [facility] ALT 22 10 - 40 U/L 12/13/2023 3:29 PM EDT [facility] BUN 10 7 - 23 mg/dL 12/13/2023 3:29 PM EDT [facility] eGFR >90 >=60 mL/min/1. 73m2 12/13/2023 3:29 PM EDT [facility] Comment: The estimated glomerular [...] - 4.2 g/dL 12/13/2023 3:29 PM EDT [facility] A/G Ratio 2.3 1.5 - 3.0 12/13/2023 3:29 PM EDT [facility] Blood Structure of peripheral vein / Unknown Venipuncture / Unknown 12/13/2023 2:02 PM EDT 12/13/2023 2:31 PM EDT us Keith Conrad MD LAB BLOOD ORDERABLES Final Resul t [facility] [address] [place] [address], [place] from Last 3 Months or Most Recently Relevant to Health Maintenance Insurance [place] [id number] Advance Directives Documents on File Type Date Recorded Patient R Programmer Expl anation Health Care Proxy 11/24/2022 1:13 PM HEALTH CARE PROXY SCANNED IN Care Teams Regulatory And Compliance Technician Relationship Specialty Start Date End Date Song Cooney MD [address] [place] [address] PCP - General 04/27/23
--- OUTSIDE RECORDS SUMMARY | 2024-07-22 14:24 | XMS_ITS | Clinical Summary ---
Author Organization [address] [facility] Address [address] [place] [address] Phone Care Team Providers Care [employer] Driver Name Role Phone Physician, No Pcp Primary Care Provider Unavaila ble Allergies Active Allergy Reactions Criticality Noted Date Comments Latex 04/25/2023 Medications Medication Sig Dispensed Refills Start Date End Date Status amLODIPine-benazepril (LOTREL) 10-20 mg per capsule TAKE 1 CAPSULE BY MOUTH EVERY DAY 02/04/2024 Active atorvastatin (LIPITOR) 10 mg tablet Take 1 Tablet by mouth daily. 12/03/2023 Active cephalexin (KEFTAB) 500 mg tablet Take 1 Tablet by mouth 4 times daily. 12/11/2023 Active divalproex (DEPAKOTE) [address] tablet Take 1 Tablet by mouth 2 times daily. Take 2 pills twice a Day Active gabapentin (NEURONTIN) 600 mg tablet Take 2 Tablets by mouth 3 times daily. Active ketoconazole (NIZORAL) 2 % cream Apply topically 2 times daily. Active lamoTRIgine (LaMICtal) 200 mg tablet Take 1 Tablet by mouth 2 times daily. Active meclizine (ANTIVERT) 25 mg tablet Take 1 Tablet by mouth 3 times daily as needed for Other (nausea and vertigo). 08/06/2023 Active omeprazole (PriLOSEC) [address] capsule Take 1 Capsule by mouth daily. 02/15/2024 Active propranoloL (INDERAL) 40 mg tablet Take 1 Tablet by mouth 2 times daily. 02/15/2024 Active TRIAMCINOLONE-NIACINA MIDE TOP NIACINAMIDE-TRIAMCI NOLONE ACET 4-0.1 % CREAM Apply topically. Active Active Problems Problem Noted Date Diagnosed Date Other hyperlipidemia 12/03/2023 Migraine 09/04/2023 Venous insufficiency 09/04/2023 Overview (04/29/2024): Per [facility] records. Carpal tunnel syndrome 04/25/2023 Chronic headache 04/25/2023 GERD (gastroesophageal reflux disease) HTN (hypertension) 04/25/2023 Memory changes 04/25/2023 Mixed incontinence 04/25/2023 Overview (04/29/2024): Last Assessment & Plan: Per [facility] records Obesity (BMI 35.0-39.9 without comorbidity) 04/02 Seizure 04/25/2023 Encounters Date Type Department Care Team Description 06/10/2024 12:50 PM EST - 06/10/2024 11:59 PM EST Hospital Encounter [facility] Ultrasound [address] [place] [phone] Thyroid nodule Discharge Disposition: Home or Self Care 05/09/2024 Telephone Pulmonolgy - [place] [address] [facility] [address] [place] [address] Sha Diamond MD from Last 3 Months Immunizations Name Administration Dates Next Due Moderna (age 6mo & older) Bi valent, COVID-19, 0.5 mL or 0.25 mL dosage 09/16/2022 TD, Adsorbed, Preservative Free 07/04/2019 Tdap Tetanus diptheria acell ular pertussis (Boostrix; Adacel) 7yo and older 02/15/2010 Surgical History Surgery Date Site/Laterality Comments HYSTERECTOMY 2009 PROCEDURE: HISTORICAL HYSTERECTOMY; COMMENT: fibroids CARPAL TUNNEL RELEASE Bilateral PROCEDURE: HISTORICAL CARPAL TUNNEL REL SECTION PROCEDURE: HISTORICAL DELIVERY OTHER SURGICAL HISTORY PROCEDURE: HISTORY OTHER; COMMENT: Colonoscopy in March 2021. OTHER SURGICAL HISTORY PROCEDURE: HISTORY OTHER; COMMENT: Upper endoscopy in 2016 Medical History Medical History Date Comments Carpal tunnel syndrome on both sides DX:Carpal tunnel syndrome on both sides Chronic migraine w/o aura w/ o status migrainosus, not intractable DX:Chronic migraine w/o a ura w/o status migrainosus, not intractable Dyspareunia in female DX:Dyspare unia in female Family 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 [place]'s disease GERD (gastroesophageal reflux disease) DX:GERD (gastroesophageal reflux disease) Mixed hyperlipidemia DX:Mixed hy perlipidemia Essential (primary) hypertension DX:Essential (primary) hypertension Mixed incontinence DX:Mixed inco ntinence Seizure disorder (CMS/HCC) DX:Se izure disorder (HCC) Venous insufficiency DX:Venous i nsufficiency Family History Medical History Relation Name Comments Thyroid disease Daughter Erin Colon cancer Mother dementia and hu ntingtons Hypertension Mother Breast cancer Sister 1 Myrena 40 Diabetes Sister 1 Myrena Hypertension Sister 1 Myrena Thyroid disease Sister 1 Myrena Hypertension Sister 2 Geni Thyroid disease Sister 2 Geni Ovarian cancer Neg Hx Relation Name Status Comments Daughter Erin Alive Mother Sister 1 Darcie Sister 2 Geni Alive Social History Tobacco Use Types Packs/Day Years Used Date Smoking Tobacco: Former Smokeless Tobacco: Never Alcohol Use Standard Drinks/Week Comments Yes 0 (1 standard drink = 0.6 oz pur e alcohol) Sex and Gender Information Value Date Recorded Sex Assigned at Not on file Gender Identity Not on file Sexual Orientation Not on file Job Start Date Occupation Industry Not on file Not on file Not on file Obstetrics History Last Filed Vital Signs Vital Sign Reading Time Taken Comments Blood Pressure 114/72 12/11/2023 10:48 AM EDT Pulse 60 12/11/2023 10:48 AM EDT Temperature - - Respiratory Rate - - Oxygen Saturation - - Inhaled Oxygen Concentration - - Weight 93.9 kg (207 lb) 12/11/2023 10:48 AM EDT Height 162.6 cm (5' 4 ) 12/11/2023 10:48 AM EDT Body Mass Index 35.53 12/11/2023 10:48 AM EDT Plan of Treatment Upcoming Encounters Date Type Department Care Team (Late st Contact Info) Description 07/31/2024 10:30 AM EST Office Visit Pulmonolgy - [place] [address] [facility] [address] [place] [phone] Sha Diamond MD [address] [facility] [address] [place] [address] Health Maintenance Due Date Last Done Comments Breast Cancer Screening 1969 Hepatitis B Vaccines (1 of 3 - 19+ 3-dose series) 1988 Cervical Cancer Screening: Pap Smear 1990 Colorectal Cancer Screening: Colonoscopy 07/27/2023 Depression Screening 07/27/2023 HIV Screening 07/27/2023 Social Influencers of Health Screening 07/27/2023 COVID-19 Vaccine (5 - season) 2024 09/16/2022, 07/04/2021, 11/25/2020, Additional history exists Influenza Vaccine (#1) 2024 , 07/04/2021, 05/11/2020, Additional history exists Hypertension/CHF/CAD Annual BMP Blood Test 12/12/2024 12/13/2023, 12/13/2023 Cholesterol Screening (Lipid Panel) 08/06/2028 08/06/2023 DTaP,Tdap,and Td Vaccines (5 - Td or Tdap) 11/02/2033 11/03/2023, 07/24/2019, 07/04/2019, Additional history exists Hepatitis C Screening Completed 08/06/2023 Zoster Vaccines Completed 11/03/2023, 07/14/2023 HIB Vaccines Aged Out No longer eligi ble based on patient's age to complete this topic HPV Vaccines Aged Out No longer eligi ble based on patient's age to complete this topic Hepatitis A Vaccines Aged Out No long er eligible based on patient's age to complete this topic IPV Vaccines Aged Out No longer eligi ble based on patient's age to complete this topic MMR Vaccines Aged Out No longer eligi ble based on patient's age to complete this topic Meningococcal ACWY Vaccine Aged Out N o longer eligible based on patient's age to complete this topic Pneumococcal Vaccine: Pediatrics (0 to 5 Years) and At-Risk Patients (6 to 64 Years) Aged Out No longer eligible based on patient's age to complete this topic RSV Immunization Patients Under 20 months Aged Out No longer eligible based on patient's age to complete this topic Varicella Vaccines Aged Out No longer eligible based on patient's age to complete this topic Procedures Procedure Name Priority Date/Time Associated Diagnosis Comments US BX NDL THYROID PERC Routine 06/10/2024 2:13 PM EST Thyroid nodule FINE NEEDLE ASPIRATION Routine 06/10/2024 1:45 PM EST Thyroid nodule ANNUAL BMP BLOOD TEST Routine 12/13/2023 HEPATITIS C SCREENING Routine 08/06/2023 LIPID PANEL Routine 08/06/2023 from Last 3 Months or Most Recently Relevant to Health Maintenance Results * US Bx Ndl Thyroid Perc (06/10/2024 2:13 PM EST) Anatomical Region Laterality Modality Head and Neck Ultrasound 06/10/2024 2:28 PM EST Narrative 06/10/2024 2:36 PM EST History: Right thyroid nodule Procedure performed: Ultrasound-guided fine-needle aspiration of right thyroid nodule Physician: Mk Brown MD Anesthesia: Local with 7 mL 1% Lidocaine Specimen: Three 22-gauge FNA samples Drain: None Estimated blood loss: Minimal Competitions: None Procedure in detail: Informed and written consent was obtained and placed in the patient's chart. ??Ultrasound of the right neck confirmed a hypoechoic nodule consistent with the one noted on preprocedural imaging and measuring 1.47 x 1.78 x 1.39 cm. ??The overlying skin was prepped and draped. ??1% Lidocaine was injected subcutaneously and extended to the nodule under ultrasound guidance. ??Next, three 22-gauge FNA samples were obtained and utilized to make slides at bedside with the extra material laced in CytoLyt. ??The specimens were deemed to be adequate. ??A sterile dressing was applied. Summary: Successful ultrasound-guided fine-needle aspiration of a right thyroid nodule as described. -------- FINAL REPORT -------- Dictated By: Saw Brown Dictated Date: 06/10/2024 14:28 ET Assigned Physician: Saw Brown Reviewed and Electronically Signed By: Saw Brown Signed Date: 06/10/2024 14:36 ET Workstation ID: [id number] Transcribed By: Self Edit Transcribed Date: 06/10/2024 14:28 ET Procedure Note Saw Brown MD - 06/10/2024 History: Right thyroid nodule Procedure performed: Ultrasound-guided fine-needle aspiration of rightthyroid nodule Physician: Mk Brown MD Anesthesia: Local with 7 mL 1% Lidocaine Specimen: Three 22-gauge FNA samples Drain: None Estimated blood loss: Minimal Competitions: None Procedure in detail: Informed and written consent was obtained and placedin the patient's chart. Ultrasound of the right neck confirmed ahypoechoic nodule consistent with the one noted on preprocedural imagingand measuring 1.47 x 1.78 x 1.39 cm. The overlying skin was prepped anddraped. 1% Lidocaine was injected subcutaneously and extended to thenodule under ultrasound guidance. Next, three 22-gauge FNA samples wereobtained and utilized to make slides at bedside with the extra materiallaced in CytoLyt. The specimens were deemed to be adequate. A steriledressing was applied. Summary: Successful ultrasound-guided fine-needle aspiration of a rightthyroid nodule as described. -------- FINAL REPORT -------- Dictated By: Saw Brown Dictated Date: 06/10/2024 14:28 ET Assigned Physician: Saw Brown Reviewed and Electronically Signed By: Saw Brown Signed Date: 06/10/2024 14:36 ET Workstation ID: [id number] Transcribed By: Self Edit Transcribed Date: 06/10/2024 14:28 ET Sha Diamond MD IMG US PROCEDURES * Fine needle aspiration (06/10/2024 1:45 PM EST) Final Diagnosis A. Thyroid, right thyroid nodule, fine needle aspiration, (ThinPrep, direct smears): Benign (Lyman Category II). Consistent with follicular nodular disease 06/11/2024 2:46 PM EST [facility] Specimen A Adequacy Satisfactory for evaluation 06/11/2024 2:46 PM EST [facility] Gross Description A. Thyroid, right thyroid nodule: Received in Cytolyt 30 ml of red fluid; 1 ThinPrep,3 pap stained 3 air dried . 06/11/2024 2:46 PM EST [facility] Intraoperative Consultation A. Thyroid, right thyroid nodule: FNA Adequate, J.S 06/11/2024 2:46 PM EST [facility] Disclaimer Unless otherwise specified, all tissue is 10% NB formalin fixed and paraffin embedded. Technical cytopathology services provided by [facility], at [address] [place] [address] (IA # [id number]/Tigre Irving MD, Slag Wheeler.) 06/11/2024 2:46 PM EST [facility] Fine Needle Aspirate Thyroid structure / Unknown 06/10/2024 1:45 PM EST 06/10/2024 3:01 PM EST Saw Brown MD LAB PATHOLOGY RIGO DELAROSA [facility] [address] [place] [id number], * Annual BMP Blood Test (12/13/2023) Pathologist [facility] Annual BMP Blood Test Abstracted Historical Provider MD PRIMO ARELLANO * Hepatitis C Screening (08/06/2023) [facility] Hepatitis C Screening Abstracted Historical Provider MD PRIMO ARELLANO E * (ABNORMAL) Lipid panel (08/06/2023) [facility] LDL/HDL Ratio 5(A) 0 - 4 Triglycerides 157(A) 0 - 150 mg/dL Cholesterol 223(A) 0 - 200 mg/dL HDL 46 40 mg/dL LDL Cholesterol 146(A) 0 - 100 mg/dL Blood Venous blood specimen / Unknown Historical Provider LAB BLOOD ORDERAB LES from Last 3 Months or Most Recently Relevant to Health Maintenance Care Teams [employer] Driver Relationship Specialty Start Date End Date Physician, No Pcp PCP - General 05/27/24
--- OUTSIDE RECORDS SUMMARY | 2024-07-22 14:24 | XMS_ITS | Encounter Summary ---
Author Organization [facility] Address [address] [place] [address] Care Team Providers Care Heel Seat Sander Name Role Phone Song Cooney MD Primary Care Provider Encounter Details Date Type Department Care Team (Late st Contact Info) Description 01/11/2021 [employer] Message [facility] [address] [place] [phone] Iván Clinton MD [address] [place] [id number] Test Results Question Social History Tobacco Use Types Packs/Day Years [...] Telephone Encounter - Keith Conrad MD - 01/14/2021 4:43 PM EDT See 01/14/2021 note on other encounter. Spoke w patient. documented in this encounter Plan of Treatment Upcoming Encounters Date Type Department Care Team (Late st Contact Info) Description 12/09/2024 11:00 AM EDT Office Visit [facility] [address] [place], [place] [phone] Keith Conrad MD [address] [place], [place] [phone] documented as of this encounter Visit Diagnoses Not on filedocumented in this encounter Care Teams Heel Seat Sander Relationship Specialty Start Date End Date Song Cooney MD [address] [place] [address] PCP - General 04/27/23 documented as of this encounter
== END 2024-07-22 14:01 | disposition home or self-care (01) ==
PROVIDERS: PCP Internal Medicine; Visit Provider Physician Assistant
DX: M17.0 Bilateral primary osteoarthritis of knee (principal)
CPT/HCPCS: 99214

== ENCOUNTER 2024-07-24 13:31 | Outpatient (REF) | payer OTHER, SELFPAY ==
--- NOTE | ~2024-07-24 | US_ITS ---
CLINICAL HISTORY: R20.8 - Other disturbances of skin sensation - Bumps BLE lateral thighs Soft tissue ultrasound bilateral lower extremity Comparison: None Findings: Bilateral mid thighs were scanned. There are no cystic or solid masses and no pathological appearing lymph nodes. IMPRESSION: 1. Unremarkable exam. Clinical follow-up recommended patient's lumps. This document has been electronically signed by: David Pabon MD on 07/26/2024 09:35:49
[2024-07-24 17:21] LABS: Cholesterol 165 mg/dL (<200); HDL Cholesterol 45 mg/dL (>40); LDL Cholesterol Calculated 102 mg/dL (<100); Triglycerides 91 mg/dL (<150)
[2024-07-24 17:33] LABS: TSH reflex Free T4 1.13 uIU/mL (0.32-4.0)
[2024-07-24 17:40] LABS: Creatinine Urine 27.55 mg/dL; Microalbumin Urine < 5.0 mg/L
[2024-07-24 18:07] LABS: Appearance Urine Clear; Color Urine Yellow; Glucose Urine UA Negative (Negative); Leukocyte Esterase Urine Small (1+) (Negative); Nitrite Urine Negative (Negative); PH 6.5 (5.0-9.0); UMIC TRIGGER UACC YES; Urine Blood Negative (Negative); Urine Ketones Negative (Negative); Urine Protein Negative (Neg-Trace)
[2024-07-24 18:22] LABS: Bacteria Urine None Seen (None Seen); Hyaline Casts Urine 0-2 /LPF (0-2); RBC Urine 0-2 /HPF (0-2); UACC Culture Trigger YES; WBC Urine 0-5 /HPF (0-5)
== END 2024-07-24 13:32 | disposition home or self-care (01) ==
LOC: HO.HMGCX 13:31
PROVIDERS: PCP Nurse Practitioner Family; Visit Provider Nurse Practitioner Family
DX: Z00.00 Encounter for general adult medical examination without abnormal findings (principal); R20.8 Other disturbances of skin sensation; R82.90 Unspecified abnormal findings in urine
CPT/HCPCS: 36415; 76882; 80061; 81001; 81003; 82043; 82570; 84443; 87086

== ENCOUNTER → 2024-07-24 13:33 | Outpatient (BNV) | payer OTHER, SELFPAY | PROVIDERS: PCP Nurse Practitioner Family; Visit Provider Specialist | DX: R20.8 Other disturbances of skin sensation (principal) | CPT/HCPCS: 76882 ==

== ENCOUNTER 2024-09-03 13:41 | Outpatient (AMB) | payer OTHER, SELFPAY ==
--- NOTE | 2024-09-03 13:48 | MHC.OFFVIS ---
Vital Signs 09/03/24 13:58 Height 5 ft 4 in Weight 202 lb BMI 34.7 Intake Visit Reasons: left knee pain Intake Note: Kenya is a 54 year old female who presents with complaints of progressively worsening bilateral knee pains, left greater than right. She describes her pain as sharp and severe in nature, 10/10. Her pain has gotten worse over the last few years in spite of continued non operative treatments. She has done physical therapy exercises which aggravated her pain. She has also tried Tylenol and anti-inflammatory medicines which gave her minimal relief. She has had multiple injections in the past. The most recent injection gave her no relief. The patient has difficulty walking even short distances because of her left knee pain. At this point her left knee pain is interfering with her activities of daily living and her ability to sleep well through the night. Allergies baclofen Allergy (Intermediate, Verified 09/03/24 13:57) Dizziness latex [LATEX] Allergy (Unknown, Verified 09/03/24 13:57) RASH codeine [Codeine] Adverse Reaction (Unknown, Verified 09/03/24 13:57) NAUSEOUS Medication List - Last Reconciled 09/04/24 by Glenn Vega MD amlodipine-benazepril 10-20 mg 1 cap PO DAILY 30 days atorvastatin 10 mg PO DAILY 30 days B-complex with vitamin C 1 tab PO DAILY betamethasone dipropionate 0.05% 1 appl topical BID divalproex 250 mg PO BID erythromycin 0.5 inches ophthalmic (eye) QID gabapentin 1,200 mg PO TID hydroxyzine HCl 25 mg PO .QD PRN 30 days lamotrigine 200 mg PO BID meclizine 25 mg PO BID PRN meclizine 25 mg PO QID PRN omeprazole 40 mg PO DAILY 30 days ondansetron 4 mg PO TID PRN 5 days propranolol 40 mg PO BID 30 days [facility] Medical History Chronic cluster headache, intractable Seizure disorder Migraine Acid reflux HTN (hypertension) Family History Mother Alcohol abuse FH: mental illness Father Alcohol abuse Brother Alcohol abuse FH: mental illness Maternal Grandfather Alcohol abuse Sister Alcohol abuse FH: mental illness Maternal Grandmother FH: mental illness Social History Housing: House Alcohol intake: never Patient Tobacco Use Status: Former Tobacco user e-Cigarette/Vaping Use: Never Used Second Hand Smoke Exposure: Yes service: No 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al status: disabled 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 Cognitive needs: No Hearing needs: No Vision needs: Yes Physical Exam Vital Signs: BMI result Body Mass Index 34.7 Const Other: Well-nourished well-developed very friendly female awake alert and oriented x3 in no acute distress Extrem Other: Bilateral lower extremity examination shows good capillary refill, no skin lesions noted, normal sensation light touch Left knee examination shows a minimal effusion, palpable crepitus with range of motion, pain with range of motion, range of motion from -3 degrees to 115 degrees, no instability Results Reviewed Results Reviewed: X-rays of the patient's left knee taken previously show end-stage degenerative joint disease with grade 4 obkl-gx-csaw arthritis, subchondral sclerosis, osteophyte formation, no acute bony abnormalities Assessment & Plan Assessment & Plan (1) Arthritis of left knee: Code(s): M17.12 - Unilateral primary osteoarthritis, left knee Category: Medical Plan Ms. Awad presents with progressively worsening left knee pain due to end-stage degenerative joint disease. I had a lengthy discussion with the patient regarding the treatment options. At this point she has failed continued non operative treatments. The risks and benefits of left total knee replacement surgery were discussed at length with the patient. The patient wishes to proceed with surgery. She will be scheduled for next available date. I will see her back 1 week prior to her surgery to answer any final questions that she might have. Feel free to call me at any time should questions regarding her orthopedic management arise. I spent 20 minutes in reviewing the patient's records and imaging studies, seeing the patient and documenting in the medical record. Coding Level of Care Code Est Pt Level 3 (52174) Complex EM visit Add On G2211 Diagnoses Arthritis of left knee M17.12
[2024-09-03 13:58] VITALS: BMI 34.7
--- OUTSIDE RECORDS SUMMARY | 2024-09-03 16:18 | XMS_ITS | Encounter Summary ---
Author Organization [facility] Address [address] [place] [address] Care Team Providers Care Vocational Auto Body Instructor Name Role Phone Song Cooney MD Primary Care Provider Reason for Visit * Reason Onset Date Comments Med Refill 07/15/2021 Encounter Details Date Type Department Care Team (Late st Contact Info) Description 07/15/2021 Telephone [facility] [address] [place] [address] Telephone Intake, Staff Med Refill Social [...] your response back to the [facility] Neurology Admin Staff Pool. Thank you documented in this encounter Plan of Treatment Upcoming Encounters Date Type Department Care Team (Late st Contact Info) Description 12/09/2024 11:00 AM EDT Office Visit [facility] Clinic [address] [place] [address] Keith Conrad MD [address] [place] [address] documented as of this encounter Visit Diagnoses Not on filedocumented in this encounter Care Teams Vocational Auto Body Instructor Relationship Specialty Start Date End Date Song Cooney MD [address] [place] [address] PCP - General 04/27/23 documented as of this encounter
--- OUTSIDE RECORDS SUMMARY | 2024-09-03 16:18 | XMS_ITS | Encounter Summary ---
Author Organization [facility] Address [address] [place] [address] Care Team Providers Care Chimney Repairer Name Role Phone Song Cooney MD Primary Care Provider Encounter Details Date Type Department Care Team (Late st Contact Info) Description 08/02/2022 Orders Only [facility] Neurology Clinic [address] [place] [address] Shantel Cardoza MD [address] [place] [address] Headache syndrome; Transient neurological symptoms Social History [...] Visit [facility]rology Clinic [address] [place], [place] [phone] Keith Conrad MD [address] [place] [address] documented as of this encounter Results * Due to [place] state law, this organization might not be sharing negative HIV tests. * Ambulatory EEG (08/02/2022 12:38 PM EST) Narrative Shantel Cardoza MD - 08/02/2022 12:38 PM EST Shantel Cardoza MD ? 08/02/2022 ??2:32 PM [facility] 3-DAY AMBULATORY CONTINUOUS VIDEO-EEG REPORT Patient: [...] and placement protocol in person by an transfer controller for the purposes of recording long-term video [...] and referential electrode montages. 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 Single Channel Inside Sales Consultant: Rhythm: regular Rate (typical): ~ 66 bpm [...] symptoms documented in this encounter Care Teams Chimney Repairer Relationship Specialty Start Date End Date Song Cooney MD [address] [place] [address] PCP - General 04/27/23 documented as of this encounter
--- OUTSIDE RECORDS SUMMARY | 2024-09-03 16:18 | XMS_ITS | Encounter Summary ---
Author Organization [facility] Address [address] [place] [address] Care Team Providers Care Computer Systems Technician Name Role Phone Song Cooney MD Primary Care Provider Reason for Visit * Reason Onset Date Comments Send message to Dr. Conrad 04/04/2021 Pt of Conrad EEG home device not working 04/04/2021 Encounter Details Date Type Department Care Team (Late st Contact Info) Description 04/04/2021 Telephone [facility] [address] [place] [address] Telephone Intake, Staff Send message to [...] technical difficulty with the EEG device the [facility] took it back. The pt neverhad the EEG reading started before the device issue. She would like a new device. Can we have a device sent to her in the mail? #[phone] * Telephone Encounter - Siomara Meghan - [...] be reached at her home number at [phone]. Thank you documented in this encounter Plan of Treatment Upcoming Encounters Date Type Department Care Team (Late st Contact Info) Description 12/09/2024 11:00 AM EDT Office Visit [facility]rology Clinic [address] [place] [address] Keith Conrad MD [address] [place] [address] documented as of this encounter Visit Diagnoses Not on filedocumented in this encounter Care Teams Computer Systems Technician Relationship Specialty Start Date End Date Song Cooney MD [address] [place] [address] PCP - General 04/27/23 documented as of this encounter
--- OUTSIDE RECORDS SUMMARY | 2024-09-03 16:18 | XMS_ITS | Encounter Summary ---
Author Organization [facility] Address [address] [place] [address] Care Team Providers Care Naturopathic Doctor Name Role Phone Song Cooney MD Primary Care Provider Reason for Visit * Reason Onset Date Comments request to speak with nurse 04/18/2021 Dr Mumtaz cochran med question 04/18/2021 Encounter Details Date Type Department Care Team (Late st Contact Info) Description 04/18/2021 Telephone [facility] [address] [place] [address] Telephone Intake, Staff request to speak [...] is looking for a facility/office in the [facility]. She will speak with her pcp about potential clinic. She didn't have any other questions at this time. #[phone] * Telephone Encounter - Sharon Bay RN - 04/18/2021 3:09 PM EDT Pt called to report that the PCP refused to prescribe the diclofenac for the pt that is a neurologymedication. The pt stated that her previous neurologist Dr Arias from [facility] is who originally prescribed it for her. [...] call back from nurse Katherine Keita # [phone] Please route your response back to the [facility] Neurology Admin Staff Pool. Thank you documented in this encounter Plan of Treatment Upcoming Encounters Date Type Department Care Team (Late st Contact Info) Description 12/09/2024 11:00 AM EDT Office Visit [facility] [address] [place] [address] Keith Conrad MD [address] [place] [address] documented as of this encounter Visit Diagnoses Not on filedocumented in this encounter Care Teams Naturopathic Doctor Relationship Specialty Start Date End Date Song Cooney MD [address] [place] [address] PCP - General 04/27/23 documented as of this encounter
--- OUTSIDE RECORDS SUMMARY | 2024-09-03 16:18 | XMS_ITS | Encounter Summary ---
Author Organization [facility] Address [address] [place] [address] Care Team Providers Care Electric Cutter Operator Name Role Phone Song Cooney MD Primary Care Provider Reason for Visit * Reason Onset Date Comments Patient has questions 04/27/2021 Pt of Ricky Devries; Pt of Anamaria Encounter Details Date Type Department Care Team (Late st Contact Info) Description 04/27/2021 Telephone [facility] Neurology Clinic [address] [place] [address] Telephone Intake, Staff Patient has questions [...] Description 12/09/2024 11:00 AM EDT Office Visit [facility] Neurology Clinic [address] [place] [address] Keith Conrad MD [address] [place] [address] documented as of this encounter Visit Diagnoses Not on filedocumented in this encounter Care Teams Electric Cutter Operator Relationship Specialty Start Date End Date Song Cooney MD [address] [place] [address] PCP - General 04/27/23 documented as of this encounter
--- OUTSIDE RECORDS SUMMARY | 2024-09-03 16:18 | XMS_ITS | Encounter Summary ---
Author Organization [facility] Address [address] [place] [address] Care Team Providers Care Graduate Recruiter Name Role Phone Song Cooney MD Primary Care Provider Encounter Details Date Type Department Care Team (Late st Contact Info) Description 07/19/2021 myChart Message [facility] Neurology Clinic [address] [place] [address] Jackie Ritchie [place] Medication question Social History [...] Description 12/09/2024 11:00 AM EDT Office Visit [facility] Neurology Clinic [address] [place], [place] [phone] Keith Conrad MD [address] [place], [place] [phone] documented as of this encounter Visit Diagnoses Not on filedocumented in this encounter Care Teams Graduate Recruiter Relationship Specialty Start Date End Date Song Cooney MD [address] [place] [address] PCP - General 04/27/23 documented as of this encounter
--- OUTSIDE RECORDS SUMMARY | 2024-09-03 16:18 | XMS_ITS | Encounter Summary ---
Author Organization [facility] Address [address] [place] [address] Care Team Providers Care Promotion Officer Name Role Phone Song Cooney MD Primary Care Provider Encounter Details Date Type Department Care Team (Late st Contact Info) Description 07/22/2021 Telephone [facility] Neurology Clinic [address] [place] [address] [phone] Telephone Intake, Staff Social History Tobacco Use [...] regarding Harjeets. Pt may be reached at [phone] documented in this encounter Plan of Treatment Upcoming Encounters Date Type Department Care Team (Late st Contact Info) Description 12/09/2024 11:00 AM EDT Office Visit [facility] Neurology Clinic [address] [place] [address] Keith Conrad MD [address] [place] [address] documented as of this encounter Visit Diagnoses Not on filedocumented in this encounter Care Teams Promotion Officer Relationship Specialty Start Date End Date Song Cooney MD [address] [place] [address] PCP - General 04/27/23 documented as of this encounter
--- OUTSIDE RECORDS SUMMARY | 2024-09-03 16:19 | XMS_ITS | Clinical Summary ---
Author Organization 175 [facility] Address [address] [place] [phone] Phone Care Team Providers Care Farm Equipment Mechanic Apprentice Name Role Phone Physician, No Pcp Primary Care Provider Unavaila ble Allergies Active Allergy Reactions Criticality Noted Date Comments Latex 04/25/2023 Medications amLODIPine-bal zepril (LOTREL) 10-20 mg per capsule TAKE 1 CAPSULE BY MOUTH EVERY DAY 4 Active atorvastatin (LIPITOR) 10 mg tablet Take 1 Tablet by mouth daily. 4 Active cephalexin (KEFTAB) 500 mg tablet Take 1 Tablet by mouth 4 times daily. 4 Active divalproex (DEPAKOTE) [address] tablet [...] as needed for Other (nausea and vertigo). 4 Active omeprazole (PriLOSEC) [address] capsule Take 1 Capsule by mouth daily. 4 Active propranoloL (INDERAL) 40 mg tablet Take 1 Tablet by mouth 2 times daily. 4 Active TRIAMCINOLONE-N IACINAMIDE TOP NIACINAMIDE-TR IAMCINOLONE ACET 4-0.1 % CREAM Apply topically. Active Active Problems Problem Noted Date Diagnosed Date Other hyperlipidemia 12/03/2023 Migraine 09/04/2023 Venous insufficiency 09/04/2023 Overview (04/29/2024): Per [facility] records. Carpal tunnel syndrome 04/25/2023 Chronic headache 04/25/2023 GERD (gastroesophageal reflux disease) HTN (hypertension) 04/25/2023 Memory changes 04/25/2023 Mixed incontinence 04/25/2023 Overview (04/29/2024): Last Assessment & Plan: Per [facility] records Obesity (BMI 35.0-39.9 without comorbidity) 04/02 Seizure 04/25/2023 Encounters Date Type Department Care Team Description 08/14/2024 Telephone Pulmonolgy - [place] 175 [facility] [address] [place] [phone] Sha Diamond MD 06/10/2024 12:50 PM EST - 06/10/2024 11:59 PM EST Hospital Encounter [facility] Ul[facility] [address] [place] [phone] Thyroid nodule Discharge Disposition: Home or Self Care from Last 3 Months Immunizations Name Administration [...] PROCEDURE: HISTORY OTHER; COMMENT: Upper endoscopy in 2015 Medical History Medical History Date Comments Carpal tunnel syndrome on both sides DX:Carpal tunnel syndrome on both sides Chronic migraine w/o aura w/ o status migrainosus, not intractable DX:Chronic migraine w/o a ura w/o status migrainosus, not intractable Dyspareunia in female DX:Dyspare unia in female Family 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 Nay's disease GERD (gastroesophageal reflux disease) DX:GERD (gastroesophageal [...] Recorded Sex Assigned at Not on file Legal Sex Female 8:44 PM EST Gender Identity Not on file Sexual Orientation Not on file Obstetrics History Last Filed [...] Care Team (Late st Contact Info) Description 11/03/2024 8:15 AM EDT Office Visit Pulmonolgy - [place] 175 [facility] [address] [place] [phone] Sha Diamond MD 175 [facility] [address] [place] [address] Health Maintenance Due Date Last Done Comments Breast Cancer Screening 1969 Hepatitis B Vaccines (1 of 3 - 19+ 3-dose series) 1988 Cervical Cancer Screening: Pap Smear 1990 Pneumococcal Vaccine: 50+ Years (1 of 1 - PCV) 2019 Colorectal Cancer Screening: Colonoscopy 07/27/2023 Depression Screening [...] patient's age to complete this topic Meningococcal B Vacine Aged Out No lo nger eligible based on patient's age to complete [...] Signed Date: 06/10/2024 14:36 ET Workstation ID: [id number] Transcribed By: Self Edit Transcribed Date: 06/10/2024 [...] Signed Date: 06/10/2024 14:36 ET Workstation ID: [id number] Transcribed By: Self Edit Transcribed Date: 06/10/2024 14:28 ET us Sha Diamond MD [place] US PROCEDURES Final Result * Fine needle aspiration (06/10/2024 1:45 PM EST) Final Diagnosis A. Thyroid, right thyroid nodule, fine needle aspiration, (ThinPrep, direct smears): Benign (Kahlotus Category II). Consistent with follicular nodular disease 06/11/2024 2:46 PM EST [facility] Specimen A Adequacy Satisfactory for evaluation 06/11/2024 2:46 PM EST [facility] Gross Description A. Thyroid, right thyroid nodule: Received in Cytolyt 30 ml of red fluid; 1 ThinPrep,3 pap stained 3 air dried . 06/11/2024 2:46 PM EST [facility] Intraoperative Consultation A. Thyroid, right thyroid nodule: FNA Adequate, J.S 06/11/2024 2:46 PM EST [facility] Disclaimer Unless otherwise specified, all tissue is 10% NB formalin fixed and paraffin embedded. Technical cytopathology services provided by [facility], at [address] [place] [address] (CLIA # [id number]/Tigre Irving MD, Acetylene Torch Burner.) 06/11/2024 2:46 PM [facility] Fine Needle Aspirate Thyroid structure / Unknown 06/10/2024 1:45 PM EST 06/10/2024 3:01 PM EST Saw Brown MD LAB PATHOLOGY ORDERABLES F inal Result [facility]) [facility] [address] [place] [address], * Annual BMP Blood Test (12/13/2023) Pathologist [facility] Annual BMP Blood Test Abstracted Historical Provider MD HEALTH MAINTENANCE Final Result * Hepatitis C Screening (08/06/2023) Pathologist [facility] Hepatitis C Screening Abstracted Historical Provider HEALTH MAINTENANCE Final Result * (ABNORMAL) Lipid panel (08/06/2023) [facility] LDL/HDL Ratio 5(A) 0 - 4 Triglycerides 157(A) 0 - 150 mg/dL Cholesterol 223(A) 0 - 200 mg/dL HDL 46 >=40 mg/dL LDL Cholesterol 146(A) 0 - 100 mg/dL Blood Venous blood specimen / Unknown us Historical Provider LAB BLOOD ORDERABLES Ginna l Result from Last 3 Months or Most Recently Relevant to Health Maintenance Insurance [facility] MEDICAID Care Teams Farm Equipment Mechanic Apprentice Relationship Specialty Start Date End Date Physician, No Pcp PCP - General 05/27/24
--- OUTSIDE RECORDS SUMMARY | 2024-09-03 16:19 | XMS_ITS | Patient Health Record ---
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 (323245016) Localization-relate d (focal) (partial) symptomatic epilepsy and epileptic syndromes with complex partial seizures, intractable, without status epilepticus (G40.219) Active confirmed Problem Chronic intractable migraine without aura (934570114730972 ) Chronic migraine without aura, intractable, with status migrainosus (G43.711) Active confirmed Problem Transient ischemic attack (203842684) 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 Plan Of Treatment No Information Insurance Providers Payer Name Payer Address Payer Phone Subscriber Number Group Number Insured Name Patient Relationship to Insured Coverage Start Date Coverage End Date [place] Medicaid [address] [place] [address] [id number] Kenya Awad Self - patient is the insured Medical (General) History Medical History History ICD Code seizure disorder HTN gerd Surgical History Surgery Date(Month/Year) FRITZ w/o uterine fibroids 2010 carpal tunnel repair bilat resection flank lipoma in 20s Hospitalization History Reason Date(Month/Year) [facility] (yc hiatry-dreamy state, hallucinations) x 5 d 2017
--- OUTSIDE RECORDS SUMMARY | 2024-09-03 16:19 | XMS_ITS | Clinical Summary ---
Author Organization [facility] Address [address] [place] [address] Care Team Providers Care Associate Director Regulatory Affairs Name Role Phone Song Cooney MD Primary [...] 2 times a day 1440 tablet 11 5 Active Active Problems Patient Care Coordination No te Formatting of this note migh t be different from the original. PT-1 Request Number [id number] is Approved, 2 visits per month for [...] appointments with the headache/migraine providers here at [facility]. She has since found a new provider for headache/migraine in the [facility] area who will be doing her [...] me now that I have returned to [facility]. Regarding the episodes that she calls [...] evaluated at a genetics center/Nay center in [place], but those records are not available. Plans to be evaluated at genetics clinic at [facility]. - Continue Lamotrigine 200 mg twice daily [...] patient would prefer somewhere closer to home ([place]) - Ambulatory EEG pending - Seizure/Fall precautions at all times - Seizure and headache diary recommended - Genetic testing consultation scheduled. (+FH of HD) - Follow up in 3-4 months Resolved Problems Problem Noted Date Diagnosed Date Resolved Date Seizure 12/17/2020 12/13/2023 Encounters Date Type Department Care Team Description 08/13/2024 Sonya [facility] [address] [place] [address] Oneyda Delcid [place] Seizure-like activity (HCC); Intractable chronic migraine without aura and without status migrainosus from Last 3 Months Family History Medical History Relation Name Comments COPD Father Canyon's disease Father Brain Aneurysm Maternal Grandmother Dementia [...] Description 12/09/2024 11:00 AM EDT Office Visit [facility] [address] [place] [address] Keith Conrad MD [address] [place] [phone] Health Maintenance Due Date Last Done Comments Cologuard 1969 Colon Cancer Screening 1969 Colonoscopy 1969 FOBT / Fit Test 1969 HIV Screening 1969 Hepatitis C Screening 1969 Sigmoidoscopy 1969 Hepatitis B Vaccines (1 of 3 - 19+ 3-dose series) 1988 Mammogram 2009 Pneumococcal Vaccine: 50+ Ye ars (1 of 1 - PCV) 2019 COVID-19 Vaccine (5 - 2023-2 5 season) 2024 09/16/2022, 07/04/2021, 11/25/2020, Additional history exists Influenza Vaccine (#1) 2024 , 07/04/2021, 05/11/2020, Additional history exists Alcohol/Substance Use Screening 07/02/2024 Depression Screening and Follow-Up 07/02/2024 Social Drivers of Health Amy ual Screening 07/02/2024 Basic Metabolic Panel 12/12/2024 12/13/2023 , 11/24/2022, 10/16/2022, Additional history exists DTaP,Tdap,and Td Vaccines (5 - Td or Tdap) 11/02/2033 11/03/2023, 07/24/2019, 07/04/2019, Additional history exists RSV Vaccine (60+ years old a nd patients) (1 - 1-dose 75+ series) 2044 Zoster Vaccines Completed 11/03/2023, 07/14/2023 Medical Devices Implanted Type Area Telephone Interceptor Operator Device Identifier Shelf Expiration Date Model / Serial / Lot Device Closure Vascular 5fr Vascade - [id number] Implanted:Qty: 1 on 11/30/2022 at [facility] Implant [employer] 08/22/2024 [id number] [id number] [id number] / / [id number] Procedures * Due to [place] [employer] law, this organization might not be sharing negative HIV tests. Procedure Name Priority Date/Time Associated Diagnosis Comments COMPREHENSIVE METABOLIC PANEL Routine 12/13/2023 2:02 PM EDT Seizure-like activity (HCC) from Last 3 Months or Most Recently Relevant to Health Maintenance Results * Due to [place] [employer] law, this organization might not be sharing negative HIV tests. * (ABNORMAL) Comprehensive Metabolic Panel (12/13/2023 2:02 PM EDT) NA 139 135 - 145 mmol/L 12/13/2023 3:29 PM EDT [facility] K 4.6 3.5 - 5.3 mmol/L 12/13/2023 3:29 PM EDT [facility] Cl 100 98 - 107 mmol/L 12/13/2023 3:29 PM EDT [facility] CO2 28 24 - 32 mmol/L 12/13/2023 3:29 PM EDT [facility] Anion Gap 11 5 - 15 12/13/2023 3:29 PM EDT [facility] Glucose 112(H) 65 - 99 mg/dL 12/13/2023 3:29 PM EDT [facility] Creatinine 0.68 0.50 - 1.20 mg/dL 12/13/2023 3:29 PM EDT [facility] Calcium 10.5 8.6 - 10.5 mg/dL 12/13/2023 3:29 PM EDT [facility] Total Protein 6.9 6.0 - 8.0 g/dL 12/13/2023 3:29 PM EDT [facility] Albumin 4.8 3.5 - 5.2 g/dL 12/13/2023 3:29 PM EDT [facility] Bilirubin, Total 0.2 0.2 - 1.2 mg/dL 12/13/2023 3:29 PM EDT [facility] Alkaline Phosphatase 71 35 - 129 U/L 12/13/2023 3:29 PM EDT [facility] AST 16 10 - 40 U/L 12/13/2023 3:29 PM EDT [facility] ALT 22 10 - 40 U/L 12/13/2023 3:29 PM EDT [facility] BUN 10 7 - 23 mg/dL 12/13/2023 3:29 PM EDT [facility] eGFR >90 >=60 mL/min/1. 73m2 12/13/2023 3:29 PM EDT [facility] Comment: The estimated glomerular [...] - 4.2 g/dL 12/13/2023 3:29 PM EDT [facility] A/G Ratio 2.3 1.5 - 3.0 12/13/2023 3:29 PM EDT [facility] Blood Structure of peripheral vein / Unknown Venipuncture / Unknown 12/13/2023 2:02 PM EDT 12/13/2023 2:31 PM EDT us Keith Conrad MD LAB BLOOD ORDERABLES Final Resul t [facility] [address] [place] [address], from Last 3 Months or Most Recently Relevant to Health Maintenance Insurance [facility] [place] [id number] Advance Directives Documents on File Type Date Recorded Patient Peer Tutor Expl anation Health Care Proxy 11/24/2022 1:13 PM HEALTH CARE PROXY SCANNED IN Care Teams Associate Director Regulatory Affairs Relationship Specialty Start Date End Date Song Cooney MD [address] [place] [address] PCP - General 04/27/23
--- OUTSIDE RECORDS SUMMARY | 2024-09-03 16:19 | XMS_ITS | Encounter Summary ---
Author Organization [facility] Address [address] [place] [address] Care Team Providers Care Valve And Regulator Repairer Name Role Phone Song Cooney MD Primary Care Provider Reason for Visit * Reason Onset Date Comments Appointment 09/28/2021 Encounter Details Date Type Department Care Team (Late st Contact Info) Description 09/28/2021 Telephone [facility] Central Scheduling Department [address] [place] [phone] Telephone Intake, Staff Appointment Social History Tobacco [...] Keith Conrad rescheduling appt today 09/28 re sulky driver is having car issues Per DT, rescheduled to 12/[address] Conrad documented in this encounter Plan of Treatment Upcoming Encounters Date Type Department Care Team (Late st Contact Info) Description 12/09/2024 11:00 AM EDT Office Visit [facility] [address] [place] [address] Keith Conrad MD [address] [place] [address] documented as of this encounter Visit Diagnoses Not on filedocumented in this encounter Care Teams Valve And Regulator Repairer Relationship Specialty Start Date End Date Song Cooney MD [address] [place] [address] PCP - General 04/27/23 documented as of this encounter
--- OUTSIDE RECORDS SUMMARY | 2024-09-03 16:19 | XMS_ITS | Encounter Summary ---
Author Organization [facility] Address [address] [place] [address] Care Team Providers Care Classified Advertising Clerk Name Role Phone Physician, No Pcp Primary Care Provider Unavaila ble Encounter Details Date Type Department Care Team ([facility] st Contact Info) Description [facility]/14[facility]2024 [facility] [address] [place] [phone] Sha Diamond MD 175 [facility] [address] [place] [address] Social History Tobacco Use Types Packs/Day Years Used Date Smoking Tobacco: Former Smokeless Tobacco: Never Alcohol Use Standard Drinks/Week Comments Yes 0 (1 standard drink = 0.6 oz pur e alcohol) Comments Unknown Sex and Gender Information Value Date Recorded Sex Assigned at Not on file Legal Sex Female 8:44 PM EST Gender Identity Not on file Sexual Orientation Not on file documented as of this encounter Progress Notes * Hazel Jacobson MA - 08/14/2024 4:[address] viraj vang from patient * Eugenio Bennett - 08/14/2024 3:49 PM EST Patient called to inform provider that she will possibly have a surgery for her Left knee. It will potentially [address] [place] [address] [address] [phone] FAX [phone] documented in this encounter Plan of Treatment Upcoming Encounters Date Type Department Care Team (Late st Contact Info) Description 11/03/2024 8:15 AM EDT Office Visit Pulmonolgy - [place] [address] [facility] [address] [place] [address] Sha Diamond MD [address] [facility] [address] [place] [address] documented as of this encounter Visit Diagnoses Not on filedocumented in this encounter Care Teams Classified Advertising Clerk Relationship Specialty Start Date End Date Physician, No Pcp PCP - General 05/27/24 documented as of this encounter
--- OUTSIDE RECORDS SUMMARY | 2024-09-03 16:19 | XMS_ITS | Referral Summary ---
Author Organization [facility] Address [address] [place] [address] Care Team Providers Care Director Of Analytics Name Role Phone Song Cooney MD Primary Care Provider Encounters Date Type Department Care Team Description 08/13/2024 Refill [facility] [address] [place] [address] Oneyda Delcid [place] Seizure-like activity (HCC); Intractable [...] different from the original. PT-1 Request Number [id number] is Approved, 2 visits per month for 12 months as of 03/29/2021, exp. 03/28/2022, patient is aware. Problem Noted Date Diagnosed Date Carpal tunnel syndrome on both sides 05/29/2022 GERD (gastroesophageal reflux disease) 11/28/202 2 Migraine headache 05/29/2022 Assessment & Plan (12/13/2023 2:36 PM EDT): Patient continues to have daily headaches, somewhat worsened since she stopped getting regular Botox injections. She had a change of insurance provider, and reports that she was unable to schedule appointments with the headache/migraine providers here at [facility]. She has since found a new provider for headache/migraine in the [facility] area who will be doing [...] me now that I have returned to [facility]. Regarding the episodes that she calls [...] evaluated at a genetics center/Nay center in [place], but those records are not available. Plans to be evaluated at genetics clinic at [facility]. - Continue Lamotrigine 200 mg twice [...] patient would prefer somewhere closer to home ([place]) - Ambulatory EEG pending - Seizure/Fall precautions [...] Description 12/09/2024 11:00 AM EDT Office Visit [facility] [address] [place] [address] Keith Conrad MD [address] [place] [address] Medical Devices Implanted Type Area Mexican Food Cook Device Identifier Shelf Expiration Date Model / Serial / Lot Device Closure Vascular 5fr Vascade - [id number] Implanted:Qty: 1 on 11/30/2022 at [facility] Implant [employer] 08/22/2024 [id number] X- [id number] / / [id number] Procedures * Due to [place] state law, this organization might not be sharing negative HIV tests. Procedure Name Priority Date/Time Associated Diagnosis Comments COMPREHENSIVE METABOLIC PANEL Routine 12/13/2023 2:02 PM EDT Seizure-like activity (HCC) from Last 3 Months or Most Recently Relevant to Health Maintenance Results * Due to [place] state law, this organization might not be sharing negative HIV tests. * (ABNORMAL) Comprehensive Metabolic Panel (12/13/2023 2:02 PM EDT) NA 139 135 - 145 mmol/L 12/13/2023 3:29 PM EDT [facility] K 4.6 3.5 - 5.3 mmol/L 12/13/2023 3:29 PM EDT [facility] Cl 100 98 - 107 mmol/L 12/13/2023 3:29 PM EDT [facility] CO2 28 24 - 32 mmol/L 12/13/2023 3:29 PM EDT [facility] Anion Gap 11 5 - 15 12/13/2023 3:29 PM EDT [facility] Glucose 112(H) 65 - 99 mg/dL 12/13/2023 3:29 PM EDT [facility] Creatinine 0.68 0.50 - 1.20 mg/dL 12/13/2023 3:29 PM EDT [facility] Calcium 10.5 8.6 - 10.5 mg/dL 12/13/2023 3:29 PM EDT [facility] Total Protein 6.9 6.0 - 8.0 g/dL 12/13/2023 3:29 PM EDT [facility] Albumin 4.8 3.5 - 5.2 g/dL 12/13/2023 3:29 PM EDT [facility] Bilirubin, Total 0.2 0.2 - 1.2 mg/dL 12/13/2023 3:29 PM EDT [facility] Alkaline Phosphatase 71 35 - 129 U/L 12/13/2023 3:29 PM EDT [facility] AST 16 10 - 40 U/L 12/13/2023 3:29 PM EDT [facility] ALT 22 10 - 40 U/L 12/13/2023 3:29 PM EDT [facility] BUN 10 7 - 23 mg/dL 12/13/2023 3:29 PM EDT [facility] eGFR >90 >=60 mL/min/1. 73m2 12/13/2023 3:29 PM EDT [facility] Comment: The estimated glomerular [...] 2.1 - 4.2 g/dL 12/13/2023 3:29 PM T [facility] A/G Ratio 2.3 1.5 - 3.0 12/13/2023 3:29 PM [facility] Blood Structure of peripheral vein / Unknown Venipuncture / Unknown 12/13/2023 2:02 PM EDT 12/13/2023 2:31 PM EDT us Keith Conrad MD LAB BLOOD ORDERABLES Final Resul t [facility] [address] [place] [address], [place] from Last 3 Months or Most Recently Relevant to Health Maintenance [place] [address] [place] [address] [place] STOD[place] [id number] Advance Directives Documents on File Type Date Recorded Patient Mud Jack Nozzleman Expl anation Health Care Proxy 11/24/2022 1:13 PM HEALTH CARE PROXY SCANNED IN Care Teams Director Of Analytics Relationship Specialty Start Date End Date Song Cooney MD [address] [place] [address] PCP - General 04/27/23
--- OUTSIDE RECORDS SUMMARY | 2024-09-03 16:19 | XMS_ITS | Encounter Summary ---
Author Organization [facility] Address [address] [place] [address] Care Team Providers Care Grader Green Meat Name Role Phone Song Cooney MD Primary Care Provider Reason for Visit * Reason Onset Date Comments Referral Request 08/23/2021 Encounter Details Date Type Department Care Team (Late st Contact Info) Description 08/23/2021 Telephone [facility] Central Scheduling Department [address] [place] [phone] Telephone Intake, Staff Referral Request Social History [...] 2:12 PM EST PT returning call from [facility] regarding a referral to a specialist. I tried director of front office but was unable to get ahold of anyone. Please reach out to PT with any information. documented in this encounter Plan of Treatment Upcoming Encounters Date Type Department Care Team (Late st Contact Info) Description 12/09/2024 11:00 AM EDT Office Visit [facility] [address] [place] [address] Keith Conrad MD [address] [place] [address] documented as of this encounter Visit Diagnoses Not on filedocumented in this encounter Care Teams Grader Green Meat Relationship Specialty Start Date End Date Song Cooney MD [address] [place] [address] PCP - General 04/27/23 documented as of this encounter
--- OUTSIDE RECORDS SUMMARY | 2024-09-03 16:19 | XMS_ITS | Encounter Summary ---
Author Organization [facility] Address [address] [place] [address] Care Team Providers Care Plasma Center Nurse Name Role Phone Song Cooney MD Primary Care Provider Encounter Details Date Type Department Care Team (Late st Contact Info) Description 01/11/2021 Workboardt Message [facility] [address] [place] [phone] Iván Clinton MD [address] [place] [id number] Test Results Question Social History Tobacco Use [...] Description 12/09/2024 11:00 AM EDT Office Visit [facility] [address] [place], [place] [phone] Keith Conrad MD [address] [place], [place] [phone] documented as of this encounter Visit Diagnoses Not on filedocumented in this encounter Care Teams Plasma Center Nurse Relationship Specialty Start Date End Date Song Cooney MD [address] [place] [address] PCP - General 04/27/23 documented as of this encounter
--- OUTSIDE RECORDS SUMMARY | 2024-09-03 16:19 | XMS_ITS | Encounter Summary ---
Author Organization [facility] Address [address] [place] [address] Care Team Providers Care Industrial Relations Analyst Name Role Phone Song Cooney MD Primary Care Provider Encounter Details Date Type Department Care Team (Late st Contact Info) Description 03/01/2021 Telephone [facility] [address] [place] [address] [phone] Telephone Intake, Staff Social History Tobacco Use [...] Description 12/09/2024 11:00 AM EDT Office Visit [facility] [address] [place] [phone] Keith Conrad MD [address] [place] [address] documented as of this encounter Visit Diagnoses Not on filedocumented in this encounter Care Teams Industrial Relations Analyst Relationship Specialty Start Date End Date Song Cooney MD [address] [place] [address] PCP - General 04/27/23 documented as of this encounter
--- OUTSIDE RECORDS SUMMARY | 2024-09-03 16:19 | XMS_ITS | Encounter Summary ---
Author Organization [facility] Address [address] [place] [address] Care Team Providers Care Group Home Paraprofessional Name Role Phone Song Cooney MD Primary Care Provider Reason for Visit * Reason Onset Date Comments Med Refill 08/13/2024 Encounter Details Date Type Department Care Team (Late st Contact Info) Description 08/13/2024 Refill [facility] [address] [place] [address] [phone] Oneyda Delcid [place] Seizure-like activity (HCC); Intractable chronic migraine without aura and without status migrainosus Social History Tobacco Use Types Packs/Day Years [...] Description 12/09/2024 11:00 AM EDT Office Visit [facility] [address] [place] [address] Keith Conrad MD [address] [place] [address] documented as of this encounter Visit Diagnoses Diagnosis Seizure-like activity (HCC) Intractable chronic migraine without aura and without status migrainosus documented in this encounter Care Teams Group Home Paraprofessional Relationship Specialty Start Date End Date Song Cooney MD [address] [place] [address] PCP - General 04/27/23 documented as of this encounter
--- OUTSIDE RECORDS SUMMARY | 2024-09-03 16:19 | XMS_ITS | Encounter Summary ---
Author Organization [facility] Address [address] [place] [address] Care Team Providers Care Regulator Assembler Name Role Phone Song Cooney MD Primary Care Provider Encounter Details Date Type Department Care Team (Late Contact Info) Description 03/02/2021 Telephone [facility] [address] [place] [address] [phone] Telephone Intake, Staff Social History Tobacco Use [...] Description 12/09/2024 11:00 AM EDT Office Visit [facility] [address] [place] [address] Keith Conrad MD [address] [place] [address] documented as of this encounter Visit Diagnoses Not on filedocumented in this encounter Care Teams Regulator Assembler Relationship Specialty Start Date End Date Song Cooney MD [address] [place] [address] PCP - General 04/27/23 documented as of this encounter
--- OUTSIDE RECORDS SUMMARY | 2024-09-03 16:19 | XMS_ITS | Encounter Summary ---
Author Organization [facility] Address [address] [place] [address] Care Team Providers Care Svp Name Role Phone Song Cooney MD Primary Care Provider Encounter Details Date Type Department Care Team (Late st Contact Info) Description 03/22/2022 Telephone [facility] [address] [place] [phone] Telephone Intake, Staff Social History Tobacco Use [...] - 03/27/2022 10:38 AM EDT PT-1 Number: [id number] Neurology Clinic - EXP: 03/23/2023 Treatment Details [...] Description 12/09/2024 11:00 AM EDT Office Visit [facility] [address] [place] [address] Keith Conrad MD [address] [place] [address] documented as of this encounter Visit Diagnoses Not on filedocumented in this encounter Care Teams Svp Relationship Specialty Start Date End Date Song Cooney MD [address] [place] [address] PCP - General 04/27/23 documented as of this encounter
--- OUTSIDE RECORDS SUMMARY | 2024-09-03 16:19 | XMS_ITS | Encounter Summary ---
Author Organization [facility] Address [address] [place] [address] Care Team Providers Care Manufacturer Agent Name Role Phone Song oConey MD Primary Care Provider Reason for Visit * Reason Onset Date Comments cs appointment new botox 11/29/2022 Encounter Details Date Type Department Care Team (Late st Contact Info) Description 11/29/2022 Telephone [facility] Central Scheduling Department [address] [place] [phone] Telephone Intake, Staff cs appointment new botox [...] to schedule appointment. DT send TE [place]: [phone] Thank you documented in this encounter Plan of Treatment Upcoming Encounters Date Type Department Care Team (Late st Contact Info) Description 12/09/2024 11:00 AM EDT Office Visit [facility] [address] [place] [phone] Keith Conrad MD [address] [place] [address] documented as of this encounter Visit Diagnoses Not on filedocumented in this encounter Care Teams Manufacturer Agent Relationship Specialty Start Date End Date Song Cooney MD [address] [place] [address] PCP - General 04/27/23 documented as of this encounter
== END 2024-09-03 14:18 | disposition home or self-care (01) ==
PROVIDERS: PCP Nurse Practitioner Family; Visit Provider Orthopaedic Surgery
DX: M17.12 Unilateral primary osteoarthritis, left knee (principal)
CPT/HCPCS: 99213; G2211

== ENCOUNTER → 2024-09-03 13:41 | Outpatient (BNVA) | payer OTHER, SELFPAY | PROVIDERS: PCP Nurse Practitioner Family; Visit Provider Orthopaedic Surgery | DX: M17.12 Unilateral primary osteoarthritis, left knee (principal) | CPT/HCPCS: 99212 ==

== ENCOUNTER 2024-09-17 10:03 | Outpatient (REF) | payer OTHER, SELFPAY ==
[2024-09-17 13:51] LABS: Appearance Urine Clear; Color Urine Yellow; Glucose Urine UA Negative (Negative); Leukocyte Esterase Urine Trace (Negative); Nitrite Urine Negative (Negative); PH 6.5 (5.0-9.0); Specific Gravity - Urine 1.015 (1.005-1.025); UMIC TRIGGER UACC YES; Urine Blood Negative (Negative); Urine Ketones Trace mg/dL (Negative); Urine Protein Negative (Neg-Trace)
[2024-09-17 13:58] LABS: Bacteria Urine None Seen (None Seen); Hyaline Casts Urine 0-2 /LPF (0-2); RBC Urine 0-2 /HPF (0-2); WBC Urine 0-5 /HPF (0-5)
== END 2024-09-17 10:04 | disposition home or self-care (01) ==
LOC: HO.HMGCLDS 10:03
PROVIDERS: PCP Nurse Practitioner Family; Visit Provider Nurse Practitioner Family
DX: Z00.00 Encounter for general adult medical examination without abnormal findings (principal)
CPT/HCPCS: 81001

== ENCOUNTER 2024-09-19 12:04 | Outpatient (AMB) | payer OTHER, SELFPAY ==
--- NOTE | 2024-09-19 12:17 | MHC.PC.OV ---
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 Required: No Is last menstrual period known: No Post menopausal: No Patient : No Allergies baclofen Allergy (Intermediate, Verified 09/19/24 12:33) Dizziness latex [LATEX] Allergy (Unknown, Verified 09/19/24 12:33) RASH codeine [Codeine] Adverse Reaction (Unknown, Verified 09/19/24 12:33) NAUSEOUS Medication List - Last Reconciled 09/19/24 by Whit Thakur CNP amlodipine-benazepril 10-20 mg 1 cap PO DAILY 30 days atorvastatin 10 mg PO DAILY 30 days B-complex with vitamin C 1 tab PO DAILY betamethasone dipropionate 0.05% 1 appl topical BID divalproex 250 mg PO BID erythromycin 0.5 inches ophthalmic (eye) QID gabapentin 1,200 mg PO TID hydroxyzine HCl 25 mg PO .QD PRN 30 days lamotrigine 200 mg PO BID meclizine 25 mg PO BID PRN omeprazole 40 mg PO DAILY 30 days ondansetron 4 mg PO TID PRN 5 days propranolol 40 mg PO BID 30 days Tobacco use date assessed: 09/19/24 Dental Screening Dental Screen Date: 09/19/24 Did you have a dental visit in the last 12 months?: Yes Did you have a dental problem in the last 6 months where you did not have access to dental care?: No Was dental information given to patient?: Patient has dentist HPI HPI Comments History of Present Illness Details 54-year-old female presents for preop clearance for left knee replacement surgery. She is scheduled to have left TKA by [facility]opedic [facility] on 11/17/2024. Reports chronic pain to both knees, left greater than right, and refractory to tylenol or ibuprofen. She has been applying muscle rub as needed. She denies acute symptoms at this time. 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 Cognitive needs: No Hearing needs: No Vision needs: Yes Questionnaire Thrive Questionnaire Date Thrive assessed: 07/07/24 I am a: Patient What is your living situation today?: I have a steady place to live Within the past 12 months, did the food you bought not last and you didn't have the money to get more?: Never true Within the past 12 months, did you worry whether your food would run out before you got money to buy more?: Never true Do you have trouble paying for medicines?: No Do you have trouble getting transportation to medical appointments?: No Do you have trouble paying your heating and electricity bill?: No Do you have trouble taking care of your child, family member or friend?: No Do you have trouble with day-to-day activities such as bathing, preparing meals, shopping, managing finances, etc.?: No Are you currently unemployed and looking for a job?: No Are you interested in more education?: No Please select the resources that you would like help with: None Currently or been in a relationship where the following occur: No concerns reported THRIVE Score: 0 AUDIT C Alcohol Use Questionnaire (AUDIT-C) 1. How often do you have a drink containing alcohol?: Never 3. How often do you have six or more drinks on one occasion?: Never Total Score: 0 JOHN-7 AMB Questionnaire JOHN-7 Date JOHN - 7 assessed: 03/06/24 Source: Developed by Drs. Sin Chavira, Carolyn Amaro, Soham Elder and colleagues, with an educational kimberly from [employer]. Review of Systems Const Details: Const Denies chills, Denies fatigue, Denies fever(s), Denies headache(s) and Denies weakness ENT Denies dizziness and Denies headache(s) Card Denies chest pain, Denies lightheadedness, Denies dyspnea and Denies other (Palpitations) Resp Denies cough, Denies dyspnea, Denies wheezing and Denies other ( shortness of breath) GI Denies abdominal pain, Denies melena, Denies hematochezia, Denies change in bowel habits, Denies dyspepsia and Denies nausea Denies hematuria and Denies dysuria Musc Reports as per HPI Skin/Breast Denies rash, Denies unusual bruising and Denies wounds Neuro Denies abnormal gait, Denies dizziness, Denies headache(s), Denies memory loss, Denies numbness, Denies Sensory deficit (Neuro), Denies tingling and Denies weakness Psych Denies anxiety, Denies depression, Denies memory loss Endo Denies cold intolerance, Denies fatigue, Denies heat intolerance, Denies polydipsia and Denies polyuria Aller/Immun Denies wheezing Physical exam (Primary Care) Vital Signs: Last Vital Signs Temp 97.8 F 09/19/24 12:23 Pulse 60 09/19/24 12:23 Resp 16 09/19/24 12:23 BP 152/72 H 09/19/24 12:23 Pulse Ox 97 09/19/24 12:23 Oxygen Delivery Method Room Air 09/19/24 12:23 BMI result Body Mass Index 35.5 Tobacco/Smoking Status: Tobacco use Status Tobacco use date assessed 09/19/24 09/19/24 12:23 Patient Tobacco Use Status Former Tobacco user 09/19/24 12:23 e-Cigarette/Vaping Use Never Used 09/19/24 12:23 Thrive Assessment: Date of Thrive Assessment Date Thrive assessed 07/07/24 09/19/24 12:23 Currently or been in a relationship where the following occur: No concerns reported Const Other: General: no acute distress and well developed Nutritional Appearance: well nourished Orientation/consciousness: patient oriented x3 HENMT Head: Yes normocephalic and Yes atraumatic Eyes General: appearance normal, both eyes and all related structures Pupils: Equal, round and reactive pupils present EOM: EOMs intact bilaterally Resp Effort & Inspection: normal respiratory effort Auscultation: clear to auscultation bilaterally Cardio Rate: regular rate Rhythm: regular rhythm Heart sounds: S1 normal heart sound present, S2 normal heart sound present, no gallops, no murmurs and no rubs GI Palpation (GI): No Abdominal aortic bruit present, Soft to palpation, nontender, No hepatosplenomegaly present and No Rebound tenderness present Auscultation: normal bowel sounds General: Yes no CVA tenderness Back/Spine/Pelvis Back: no CVA tenderness Cervical Spine: cervical ROM normal and No Cervical spine tenderness Thoracic/Lumbar Spine: thoraco-lumbar ROM normal, No pain with thoraco-lumbar ROM, No thoracic spinal tenderness and No lumbar spinal tenderness Extrem General: Yes normal to inspection, No edema and No calf tenderness Skin General: warm and dry. Normal skin color. Normal skin turgor Neuro General: patient oriented x3, gait normal and no focal neuro deficit Cranial nerves: Yes Equal, round and reactive pupils present Cognition (Neuro): normal cognition Gait exam (Neuro): Normal gait present Sensory Exam: No Sensory deficit (Neuro) Psych Appearance: grossly normal Affect: normal affect Attitude: cooperative Thought process: Normal thought process present Coding Level of Care Code Est Pt Level 3 (83550) Diagnoses Preop examination Z01.818 Osteoarthritis of left knee, unspecified osteoarthritis type M17.12 Osteoarthritis type: unspecified Osteoarthritis of right knee, unspecified osteoarthritis type M17.11 Osteoarthritis type: unspecified HTN (hypertension) I10 Assessment & Plan Assessment & Plan (1) Preop examination: Code(s): Z01.818 - Encounter for other preprocedural examination Category: Medical Plan: Normal physical exam. No focal neuro deficit. Vital signs stable. Recent random glucose was elevated, 132. Will check fasting glucose. Advised to fast for 10-12 hours, may drink water, before getting blood work done. She will be cleared for orthopedic surgery pending fasting glucose result. (2) Osteoarthritis of left knee: Code(s): M17.12 - Unilateral primary osteoarthritis, left knee Category: Medical Qualifiers: Osteoarthritis type: unspecified Qualified Code(s): M17.12 - Unilateral primary osteoarthritis, left knee Plan: Followed by [facility] orthopedics. She has left TKA scheduled in 11/17/2024. (3) Osteoarthritis of right knee: Code(s): M17.11 - Unilateral primary osteoarthritis, right knee Category: Medical Qualifiers: Osteoarthritis type: unspecified Qualified Code(s): M17.11 - Unilateral primary osteoarthritis, right knee Plan: Plan as above. (4) HTN (hypertension): Code(s): I10 - Essential (primary) hypertension Category: Medical Plan: Resting blood pressure is 126/62, within goal of less than 140/90, heart rate is 64. Continue current treatment regimen. Low-sodium diet encouraged. Advised to get fasting lipid panel blood work done 2-3 days before next visit. Follow-up in 3 months for hypertension and hyperlipidemia sooner with symptoms or concerns. Verbalized understanding and agreed with treatment plan. Orders: Orders Glucose Fasting Today Z01.818 - Encounter for other preprocedural examination Lipid Panel 3 Months E78.5 - Hyperlipidemia, unspecified
[2024-09-19 12:23] VITALS: BP 152/72; PULSE 60; RESP 16; TEMP 36.6; O2SAT 97; BMI 35.5
[2024-09-19 12:42] VITALS: BP 126/62; PULSE 64
== END 2024-09-19 12:52 | disposition home or self-care (01) ==
LOC: HO.HMCFM 12:05
PROVIDERS: PCP Nurse Practitioner Family; Visit Provider Nurse Practitioner Family
DX: M17.0 Bilateral primary osteoarthritis of knee (principal); I10 Essential (primary) hypertension; Z01.818 Encounter for other preprocedural examination

== ENCOUNTER → 2024-09-19 12:04 | Outpatient (BNVA) | payer OTHER, SELFPAY | PROVIDERS: PCP Nurse Practitioner Family; Visit Provider Nurse Practitioner Family | DX: Z01.818 Encounter for other preprocedural examination (principal); M17.0 Bilateral primary osteoarthritis of knee; I10 Essential (primary) hypertension | CPT/HCPCS: 99212 ==

== ENCOUNTER → 2024-10-13 08:34 | Outpatient (BNVA) | payer OTHER, SELFPAY | PROVIDERS: PCP Nurse Practitioner Family | DX: Z01.818 Encounter for other preprocedural examination (principal) ==

== ENCOUNTER → 2024-10-21 13:03 | Outpatient (BNV) | payer OTHER, SELFPAY | PROVIDERS: PCP Nurse Practitioner Family; Visit Provider Internal Medicine | DX: Z01.810 Encounter for preprocedural cardiovascular examination (principal) | CPT/HCPCS: 93010 ==

== ENCOUNTER 2024-10-29 07:52 | Inpatient (IN) | payer OTHER, SELFPAY ==
[2024-10-29] VITALS (8 sets, daily range): BP systolic 105–180; BP diastolic 58–88; PULSE 62–88; RESP 15–20; TEMP 36.3–37.3; O2SAT 94–100; BMI 35.9; BMI 35.3
--- NOTE | 2024-10-29 | ECG_ITS ---
Test Reason : DIZZINESS Blood Pressure : */* mmHG Vent. Rate : 87 BPM Atrial Rate : 87 BPM P-R Int : 200 ms QRS Dur : 76 ms QT Int : 362 ms P-R-T Axes : 58 24 41 degrees QTcB Int : 435 ms Normal sinus rhythm Normal ECG When compared with ECG of 29-Oct-2024 10:49, QRS duration has decreased ST no longer elevated in Inferior leads Nonspecific T wave abnormality now evident in Inferior leads Nonspecific T wave abnormality, worse in Lateral leads Referred By: Taqueria Gudino Electronically Signed By: Israel Snow
--- NOTE | 2024-10-29 | ECG_ITS ---
Test Reason : SERIAL EKG Blood Pressure : */* mmHG Vent. Rate : 76 BPM Atrial Rate : 76 BPM P-R Int : 180 ms QRS Dur : 74 ms QT Int : 370 ms P-R-T Axes : 54 25 30 degrees QTcB Int : 416 ms Normal sinus rhythm Nonspecific ST and T wave abnormality Abnormal ECG When compared with ECG of 29-Oct-2024 11:42, No significant change was found Referred By: Albert Stapleton Electronically Signed By: Israel Snow
--- NOTE | ~2024-10-29 | XR_ITS ---
CLINICAL HISTORY: Fall at home on right side w right hip pain Pelvis and right hip two views Comparison: None Findings: No acute fracture or dislocation identified. No acute focal bony abnormality. No radiopaque foreign body noted. Impression: No acute bony abnormality This document has been electronically signed by: Mark Torres MD on 10/29/2024 18:03:59
--- NOTE | ~2024-10-29 | CT_ITS ---
EXAMINATION: CT FACIAL BONES WITHOUT CONTRAST CLINICAL INFORMATION: Injury. COMPARISON: None available. TECHNIQUE: Contiguous axial images through the maxillofacial bones using 3 mm collimation with bone and soft tissue algorithm. Sagittal and coronal reformatted images acquired. This CT examination was performed using dose optimization techniques as appropriate, variously including the following: *Automated exposure control *Adjustment of mA and/or kV according to patient size (this includes techniques or standardized protocols for targeted exams where dose is matched to indication/reason for exam; i.e. extremities or head) *Use of iterative reconstruction technique DLP: 426.33 mGy centimeter. FINDINGS: Cortical irregularity and deformity involving the nasal bones. This is septum and vomer are intact. The orbital rims, orbital fissures and orbital apices are intact. The maxilla and pterygoid plates are intact. The zygomatic arcs are intact. The mandible is intact. Temporomandibular joints are intact. Edema pattern/soft tissue contusion, nose/nasal region. No hematoma or fluid collections, intraconal or extraconal compartments of the orbits. The eyeballs are intact. There is no air-fluid levels in the paranasal sinuses. Retention cysts versus polyps in the inferior maxillary sinuses. Tympanic cavities and mastoid air cells are aerated. The craniocervical junction is intact. Bilateral nonspecific prominent cervical lymph nodes. Right vidian canal is type II. Left vidian canal type I.. CT/CT facial bones wo IV con IMPRESSION: Nasal bone fractures and has associated soft tissue contusion. Electronically signed by: Fabian Calle MD 10/29/2024 10:02 AM EDT
--- NOTE | ~2024-10-29 | CT_ITS ---
EXAMINATION: CT HEAD WITHOUT CONTRAST CLINICAL INFORMATION: trauma COMPARISON: June 17, 2024. TECHNIQUE: Contiguous axial imaging was performed from the skull base to vertex without intravenous administration of contrast. This CT examination was performed using dose optimization techniques as appropriate, variously including the following: *Automated exposure control *Adjustment of mA and/or kV according to patient size (this includes techniques or standardized protocols for targeted exams where dose is matched to indication/reason for exam; i.e. extremities or head) *Use of iterative reconstruction technique DLP: 674.73 mGy-cm FINDINGS: Cortical irregularity, nasal bones. The bony calvarium demonstrates no acute cortical disruption. The skull base demonstrates no acute cortical disruption. No acute intracranial hemorrhage, mass effect, midline shift, hydrocephalus or herniation. Strauss-white matter differentiation is normal. Posterior cranial fossa contents demonstrated no acute intracranial hemorrhage or gross mass effect. Sellar/suprasellar region demonstrated no gross masses or hemorrhage. Craniocervical junction is intact. Tympanic cavities and mastoid cells are aerated. Retention cysts versus polyps, maxillary sinuses. Mucosal thickening, ethmoid air cells. CT/CT head/brain wo IV con IMPRESSION: No acute fracture, bony calvarium. No acute intracranial hemorrhage. Traumatic nasal bones deformities. Global cerebral atrophy. Electronically signed by: Fabian Calle MD 10/29/2024 09:56 AM EDT
--- NOTE | ~2024-10-29 | CT_ITS ---
EXAMINATION: CT CERVICAL SPINE WITHOUT CONTRAST CLINICAL INFORMATION: Injury. COMPARISON: August 08, 2023. TECHNIQUE: Contiguous axial images through the cervical spine using 3 mm collimation with bone and soft tissue algorithm. Sagittal and coronal reformatted images acquired. This CT examination was performed using dose optimization techniques as appropriate, variously including the following: *Automated exposure control *Adjustment of mA and/or kV according to patient size (this includes techniques or standardized protocols for targeted exams where dose is matched to indication/reason for exam; i.e. extremities or head) *Use of iterative reconstruction technique DLP: 422.84 mGy centimeter. FINDINGS: Craniocervical junction is intact and normal alignment. Marginal osteophyte formation and endplate sclerosis decreased intervertebral disc height and subchondral cyst formation at C4-5 C5-6 and C6-7 levels. Reverse curvature apex at C5. There is normal alignment between the vertebral bodies and the facet joints. C1 is intact. C2 is intact. C3 is intact. C4 is intact. C5 is intact. C6 is intact. C7 is intact. No gross prevertebral compartment hematoma. Retropharyngeal trajectory of the carotic arteries, bilaterally. Dystrophic calcification within the nonenlarged left thyroid lobe. 1 cm hypodensity in the right thyroid lobe. Tympanic cavities and mastoid cells are aerated. CT/CT cervical spine wo IV con IMPRESSION: Multilevel cervical spondylosis without acute fracture or trauma-related listhesis. Fleischner guidelines were followed. Electronically signed by: Fabian Calle MD 10/29/2024 10:20 AM EDT
--- NOTE | 2024-10-29 08:06 | PC.NURSE ---
Pt extremely anxious with any type of care, including vital signs measurements; pt grabbing at this RN and needed repeated redirection to calm down; pt has anxiety regarding health care procedures; c collar in place from EMS' cold pack provided for nose injury
--- NOTE | 2024-10-29 08:11 | ED.FALL ---
HPI - Fall General Chief Complaint: Fall Stated Complaint: FALL,HIT HEAD,LAC TO NOSSE,-THINN,-LOC,+CCOLLAR Time Seen by Provider: 10/29/24 07:59 Source: patient and EMS Mode of arrival: EMS History of Present Illness HPI Narrative: This is a 54 years old the patient with a history of chronic headache, seizure disorder, hypertension, dizziness history of fall presented to emergency room after a fall in the bathroom. The patient stated that she tripped and fell face down. She has about 1.5 cm superficial laceration of the bridge of the nose. Sister states that she took 6 tablets of lamotrigine this morning because she ran out of [employer] complaint: fall Onset (ago): hour(s) (1) Fall witnessed: no Place fall occurred: home Loss of consciousness: none Symptoms prior to fall: dizziness Related Data Home Medications ?Medication ?Instructions ?Recorded ?Confirmed divalproex 250 mg tablet,delayed 500 mg PO BID 09/23/21 10/29/24 release lamotrigine 25 mg tablet 200 mg PO BID 02/12/23 10/29/24 B-complex with vitamin C 1 tab PO DAILY 03/06/24 10/29/24 gabapentin 600 mg tablet 1,200 mg PO TID 03/06/24 10/29/24 amlodipine 10 mg-benazepril 20 mg 1 cap PO DAILY 10/21/24 10/29/24 capsule atorvastatin 10 mg tablet 10 mg PO DAILY 10/21/24 10/29/24 omeprazole 40 mg capsule,delayed 40 mg PO DAILY@0630 10/21/24 10/29/24 release meclizine 25 mg tablet 25 mg PO QID PRN dizziness 10/29/24 10/29/24 Previous Rx's ?Medication ?Instructions ?Recorded ondansetron 4 mg disintegrating 4 mg PO TID PRN nausea and 06/17/24 tablet vomiting 5 days #10 tabs walker #1 ea 09/22/24 propranolol 40 mg tablet 40 mg PO BID 30 days #60 tabs 10/13/24 Allergies Allergy/AdvReac Type Severity Reaction Status Date / Time baclofen Allergy Intermediate Dizziness/n Verified 10/29/24 07:58 ausea latex [LATEX] Allergy Intermediate Rash Verified 10/29/24 07:58 codeine [Codeine] AdvReac Intermediate Nausea and Verified 10/29/24 07:58 Vomiting Review of Systems Constitutional: Constitutional: Reports no additional constitutional complaints Cardiovascular: Cardiovascular: Reports no additional cardiovascular complaints Respiratory: Respiratory: Reports no additional respiratory complaints Musculoskeletal: Musculoskeletal: Reports no additional musculoskeletal complaints Neurologic: Reports as per HPI and Reports other [facility] Past Medical History Attestation statement: The following information was validated with the patient. Medical History Osteoarthritis Anesthesia complication Pulmonary nodules Hyperlipidemia Chronic cluster headache, intractable Seizure disorder Migraine Acid reflux HTN (hypertension) Surgical History History of esophagogastroduodenoscopy (EGD) H/O colonoscopy History of carpal tunnel release Hx of hysterectomy Family History Family History Mother Alcohol abuse FH: mental illness Father Alcohol abuse Brother Alcohol abuse FH: mental illness Maternal Grandfather Alcohol abuse Sister Alcohol abuse FH: mental illness Maternal Grandmother FH: mental illness Social History Social History Household Members Other:: sister (each lives in own floor of a two family home)-son lives with pt. Housing: House Are you a primary medicare interviewer to a significant other at home: No Do you presently have visiting nurse or other home services: No Alcohol intake: never Patient Tobacco Use Status: Former Tobacco user Tobacco use type: Cigarette Years Smoked: 9 Smoked in Last 30 Days: No e-Cigarette/Vaping Use: Never Used Second Hand Smoke Exposure: Yes Use of substances other than those prescribed or required for medical reasons: No Advance Directives: Yes Advance Directives on File: Yes Advance Directives Date on File: 07/19/09 Do you have a plan to hurt others: No Plan Patient : No service: No 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al status: disabled 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 Cognitive needs: No Hearing needs: No Vision needs: Yes Physical Exam Vital Signs: Vital Signs: Last Vital Signs Temp 98.7 F 10/29/24 12:03 Pulse 86 10/29/24 12:03 Resp 20 10/29/24 12:03 BP 128/70 10/29/24 12:03 Pulse Ox 97 10/29/24 12:03 O2 Del Method Room Air 10/29/24 12:03 BMI result Body Mass Index 35.9 Not acute distress lying in the stretcher with a C-collar on Const: General: cooperative Nutritional Appearance: average body habitus Orientation/consciousness: patient oriented x3 HEENT: Other: 1.5 cm laceration of the bridge of the nose Head: Yes normal to inspection General nose exam: Other nasal findings present (As above superficial laceration 1.5 cm bridge nose) Neck: Other: C-collar on Resp: Effort & Inspection: normal respiratory effort Auscultation: clear to auscultation bilaterally Cardio: Jugular venous distension: no JVD Rate: regular rate Rhythm: regular rhythm GI: Inspection: Yes normal to inspection Palpation (GI): Soft to palpation Neuro: Other: Nonfocal General: patient oriented x3 and CN's II-XI intact bilaterally Medications Administered Discontinued Medications Generic Name Dose Route Start Last Admin Trade Name Freq PRN Reason Stop Dose Admin Acetaminophen/Butalbital/Caffeine 1 tab 10/29/24 14:48 10/29/24 15:04 Butalb/Acetamin/Caff 50/325/40 Tablet PO 10/29/24 14:49 1 tab ONCE ONE Administration Diazepam 2.5 mg 10/29/24 08:57 10/29/24 09:08 Diazepam 10 Mg/2 Ml Cartridge IVPUSH 10/29/24 08:58 2.5 mg STAT STA Administration Sodium Chloride 1,000 mls @ 999 mls/hr 10/29/24 08:15 10/29/24 10:07 Ns IVCONT 10/29/24 09:15 Infused .Q1H1M [facility] Infusion Procedures Laceration Laceration 1: Site: other (nose) Size (cm): 1.5 Description: linear Depth: simple, single layer Skin layer closed with: other (skin adesive) Medical Decision Making Medical Decision Making MDM Narrative: Patient is here after a fall we will obtain imaging of the head C-spine we will obtain a electrocardiogram as well Differential Diagnosis Differential Diagnoses: The differential diagnosis associated with the presentation includes Cervical spine fracture/subdural hematoma/epidural hematoma Admission/Observation Consideration of admission/observation: Escalation of care including admission/observation considered Lab Data MDM Lab Attestation statement: I reviewed the patient's lab results. 10/29/24 08:30 10/29/24 08:30 Labs: Lab Results 10/29/24 10/29/24 10/29/24 Range/Units 08:30 09:03 10:27 WBC 8.8 (4.8-10.8) X10*3/uL RBC 4.23 (4.20-5.50) X10*6/uL Hgb 13.2 (12.0-16.0) g/dl Hct 39.2 (37.0-47.0) % MCV 92.7 (80.0-98.0) fL MCH 31.2 (27.0-33.0) pg MCHC 33.7 (31.0-35.0) g/dl RDW 12.9 (11.0-16.0) % Plt Count 387 (160-400) X10*3/uL MPV 8.7 L (9.4-12.3) fL Immature Gran % (Auto) 0.3 (0.0-0.4) % Neut % (Auto) 54.4 (45-73) % Lymph % (Auto) 37.1 (20-40) % Garrard % (Auto) 5.2 (2-11) % Eos % (Auto) 2.1 (0-4) % Baso % (Auto) 0.9 (0-2) % Lymph # (Auto) 3.3 (1.2-4.9) X10*3/uL Garrard # (Auto) 0.5 (0.1-1.2) X10*3/uL Eos # (Auto) 0.2 (0.0-0.4) X10*3/uL Baso # (Auto) 0.1 (0.0-0.2) X10*3/uL Abs Immat Gran (auto) 0.03 (0.00-0.03) X10*3/uL Absolute Neuts (auto) 4.8 (2.0-8.3) x10*3/uL Absolute Nucleated RBC 0.000 (0.0-0.012) X10*3/uL Nucleated RBC % (auto) 0.0 (0.0-0.2) /100WBC Sodium 142 (135-145) mmol/L Potassium 4.6 (3.3-5.1) mmol/L Chloride 105 (96-108) mmol/L Carbon Dioxide 28 (22-29) mmol/L Anion Gap 14 (12-20) BUN 17 H (9-16) mg/dL Creatinine 0.70 (0.5-1.4) mg/dL Estim Creat Clear Calc 101.4 Estimated GFR > 60 Random Glucose 120 H (60-115) mg/dL Calcium 10.3 H (8.4-10.2) mg/dL Phosphorus 2.7 (2.7-4.5) mg/dL Magnesium 2.0 (1.6-2.6) mg/dL Total Bilirubin 0.3 (0.0-1.0) mg/dL AST 20 (5-31) U/L ALT 21 (0-31) U/L Alkaline Phosphatase 78 (39-117) U/L Total Creatine Kinase 53 (26-140) U/L Troponin I High Sens < 2.7 (<3.5-17.0) ng/L Total Protein 7.1 (6.5-8.0) g/dL Albumin 4.6 (3.5-5.0) g/dL Salicylates < 5.0 L (15-30) mg/dL Urine Opiates Screen Not Detected (Not Detect) Ur Buprenorphine Scrn Not Detected (Not Detect) ng/mL Ur Oxycodone Screen Not Detected (Not Detect) ng/mL Urine Methadone Screen Not Detected (Not Detect) ng/mL Urine Fentanyl Screen Not Detected (Not Detect) Acetaminophen 4 (<30) mcg/mL Ur Barbiturates Screen Not Detected (Not Detect) Valproic Acid < 12.5 L (50.0-100.0) mcg/mL Ur Phencyclidine Scrn Not Detected (Not Detect) Ur Amphetamines Screen Not Detected (Not Detect) U Benzodiazepines Scrn Not Detected (Not Detect) Urine Cocaine Screen Not Detected (Not Detect) U Marijuana (THC) Screen Not Detected (Not Detect) Ethyl Alcohol < 10 mg/dL 10/29/24 Range/Units 12:40 WBC (4.8-10.8) X10*3/uL RBC (4.20-5.50) X10*6/uL Hgb (12.0-16.0) g/dl Hct (37.0-47.0) % MCV (80.0-98.0) fL MCH (27.0-33.0) pg MCHC (31.0-35.0) g/dl RDW (11.0-16.0) % Plt Count (160-400) X10*3/uL MPV (9.4-12.3) fL Immature Gran % (Auto) (0.0-0.4) % Neut % (Auto) (45-73) % Lymph % (Auto) (20-40) % Garrard % (Auto) (2-11) % Eos % (Auto) (0-4) % Baso % (Auto) (0-2) % Lymph # (Auto) (1.2-4.9) X10*3/uL Garrard # (Auto) (0.1-1.2) X10*3/uL Eos # (Auto) (0.0-0.4) X10*3/uL Baso # (Auto) (0.0-0.2) X10*3/uL Abs Immat Gran (auto) (0.00-0.03) X10*3/uL Absolute Neuts (auto) (2.0-8.3) x10*3/uL Absolute Nucleated RBC (0.0-0.012) X10*3/uL Nucleated RBC % (auto) (0.0-0.2) /100WBC Sodium (135-145) mmol/L Potassium (3.3-5.1) mmol/L Chloride (96-108) mmol/L Carbon Dioxide (22-29) mmol/L Anion Gap (12-20) BUN (9-16) mg/dL Creatinine (0.5-1.4) mg/dL Estim Creat Clear Calc Estimated GFR Random Glucose (60-115) mg/dL Calcium (8.4-10.2) mg/dL Phosphorus (2.7-4.5) mg/dL Magnesium (1.6-2.6) mg/dL Total Bilirubin (0.0-1.0) mg/dL AST (5-31) U/L ALT (0-31) U/L Alkaline Phosphatase (39-117) U/L Total Creatine Kinase (26-140) U/L Troponin I High Sens (<3.5-17.0) ng/L Total Protein (6.5-8.0) g/dL Albumin (3.5-5.0) g/dL Salicylates (15-30) mg/dL Urine Opiates Screen (Not Detect) Ur Buprenorphine Scrn (Not Detect) ng/mL Ur Oxycodone Screen (Not Detect) ng/mL Urine Methadone Screen (Not Detect) ng/mL Urine Fentanyl Screen (Not Detect) Acetaminophen < 3 (<30) mcg/mL Ur Barbiturates Screen (Not Detect) Valproic Acid (50.0-100.0) mcg/mL Ur Phencyclidine Scrn (Not Detect) Ur Amphetamines Screen (Not Detect) U Benzodiazepines Scrn (Not Detect) Urine Cocaine Screen (Not Detect) U Marijuana (THC) Screen (Not Detect) Ethyl Alcohol mg/dL Independent Interpretation I performed an independent interpretation of an: CT Scan Interpretation: Not acute disease Radiology Impression Discussion of test interpretation with radiology: I have reviewed the radiologist's reading. Radiologist Impression: FINDINGS: Cortical irregularity and deformity involving the nasal bones. This is septum and vomer are intact. The orbital rims, orbital fissures and orbital apices are intact. The maxilla and pterygoid plates are intact. The zygomatic arcs are intact. The mandible is intact. Temporomandibular joints are intact. Edema pattern/soft tissue contusion, nose/nasal region. No hematoma or fluid collections, intraconal or extraconal compartments of the orbits. The eyeballs are intact. There is no air-fluid levels in the paranasal sinuses. Retention cysts versus polyps in the inferior maxillary sinuses. Tympanic cavities and mastoid air cells are aerated. The craniocervical junction is intact. Bilateral nonspecific prominent cervical lymph nodes. Right vidian canal is type II. Left vidian canal type I.. CT/CT facial bones wo IV con IMPRESSION: Nasal bone fractures and has associated soft tissue contusion. Electronically signed by: Fabian Calle MD 10/29/2024 10:02 AM EDT Independent Historian Clinical information obtained from an independent historian. History obtained from or confirmed by: Other (sister) Chronic Conditions seizure Discharge Plan Discharge Clinical Impression: Overdose of lamotrigine, Dizziness Head injury Qualifiers: Encounter type: initial encounter Qualified Code(s): S09.90XA - Unspecified injury of head, initial encounter Closed fracture nasal bone Qualifiers: Encounter type: initial encounter Qualified Code(s): S02.2XXA - Fracture of nasal bones, initial encounter for closed fracture Laceration of nose Qualifiers: Encounter type: initial encounter Qualified Code(s): S01.21XA - Laceration without foreign body of nose, initial encounter Patient Disposition: Admitted As Inpatient
--- NOTE | 2024-10-29 08:15 | ECG_ITS ---
Test Reason : FALL Blood Pressure : */* mmHG Vent. Rate : 85 BPM Atrial Rate : 85 BPM P-R Int : 196 ms QRS Dur : 78 ms QT Int : 354 ms P-R-T Axes : 63 50 29 degrees QTcB Int : 421 ms Normal sinus rhythm ST & T wave abnormality, consider inferior ischemia Abnormal ECG When compared with ECG of 21-Oct-2024 13:03, Inverted T waves have replaced nonspecific T wave abnormality in Inferior leads Nonspecific T wave abnormality now evident in Lateral leads Referred By: Taqueria Gudino Electronically Signed By: Israel Snow
--- OUTSIDE RECORDS SUMMARY | 2024-10-29 08:27 | XMS_ITS | Clinical Summary ---
Author Organization [facility] Address [address] [place] [address] Care Team Providers Care Entry Level Machine Operator Name Role Phone Whit Thakur Primary Care Provider Allergies Active Allergy Reactions [...] NEEDED FOR NAUSEA AND VOMITING 1 Active amLODIPine-benaze priL (LOTREL) 10-20 mg per capsule Take 1 [...] or vomiting. Active gabapentin (NEURONTIN) 600 mg tabletIndications :Seizure-like activity (HCC),Intractable chronic migraine without aura and without status migrainosus Take 2 tablets (1,200 mg total) by mouth 3 times a day. 540 tablet 3 4 Active lamoTRIgine (LaMICtal) 25 mg tabletIndications :Seizure-like activity (HCC),Intractable chronic migraine without aura and without status migrainosus Take 8 tablets (200 mg total) by mouth 2 times a day 1440 tablet 11 5 Active acetaminophen (TYLENOL) 500 mg tablet Take 1,000 mg by mouth every 6 hours as needed for pain. Active betamethasone dipropionate (DIPROSONE) 0.05 % cream SMARTSIG:Topi myrtle Twice Daily PRN 4 Active hydrOXYzine HCL (ATARAX) 25 mg tabletIndications :anxiety Take 25 mg by mouth as needed for itching Indications: anxious. Active divalproex DR (DEPAKOTE) 250 mg EC tabletIndications :Seizure-like activity (HCC),Intractable chronic migraine without aura and without status migrainosus Take 2 tablets (500 mg total) by mouth every morning AND 2 tablets (500 mg total) every evening. 360 tablet 3 5 Active Active Problems Patient Care Coordination No te Formatting of this note migh t be different from the original. PT-1 Request Number [id number] is Approved, 2 visits per month for [...] appointments with the headache/migraine providers here at [facility]. She has since found a new provider for headache/migraine in the [facility] area who will be doing her Botox [...] 3 times a day Assessment & Plan (10/24/2024 3:24 PM EDT): Doing well on current regimen in regards to seizure events and headaches. No plans for medication changes today. In regards to her upcoming surgery, there is no contraindication to her having it. She is advised to continue to take LTG, GBP, and VPA as prescribed. She verbalizes understanding of this. Plan to follow up in November 2024 as scheduled. Assessment & Plan (12/13/2023 2:34 PM EDT): Patient presents today to reestablish care with me now that I have returned to [facility]. Regarding the episodes that she calls seizures, [...] HD: Reportedly was evaluated at a genetics center/[facility] in [place], but those records are not available. Plans [...] patient would prefer somewhere closer to home ([place]) - Ambulatory EEG pending - Seizure/Fall precautions at all times - Seizure and headache diary recommended - Genetic testing consultation scheduled. (+FH of HD) - Follow up in 3-4 months Resolved Problems Problem Noted Date Diagnosed Date Resolved Date Seizure 12/17/2020 12/13/2023 Encounters Date Type Department Care Team Description 10/26/2024 Refill [facility] [address] [place] [phone] Keith Conrad MD Seizure-like activity (HCC); Intractable chronic migraine without aura and without status migrainosus 10/24/2024 3:00 PM EDT Office Visit [facility] [address] [place] [phone] Ricky Devries NP Seizure-like activity (HCC) (Primary Dx) 09/24/2024 Telephone [facility] [address] [place] [phone] Telephone Intake, Staff PAC Patient Request Call Back; PAC Appt Request - New 08/13/2024 Refill [facility] [address] [place] [phone] Oneyda Delcid [place] Seizure-like activity; Intractable chronic migraine without aura and without status migrainosus from Last 3 Months Family History Medical History Relation Name Comments COPD Father Hood's disease Father Brain Aneurysm Maternal Grandmother Dementia [...] Sign Reading Time Taken Comments Blood Pressure 102/64 10/24/2024 2:44 PM EDT Pulse 68 10/24/2024 2:44 PM EDT Temperature 37 ??C (98.6 ??F) 10/24/2024 2:44 PM EDT Respiratory Rate 18 10/24/2024 2:44 PM EDT Oxygen Saturation 95% 10/24/2024 2:44 PM EDT Inhaled Oxygen Concentration - - Weight 95.3 kg (210 lb) 10/24/2024 2:44 PM EDT Height 162.6 cm (5' 4 ) 10/24/2024 2:44 PM EDT Body Mass Index 36.05 10/24/2024 2:44 PM EDT Plan of Treatment Upcoming Encounters Date Type Department Care Team (Late st Contact Info) Description 12/09/2024 11:00 AM EDT Office Visit [facility] [address] [place] [address] Keith Conrad MD [address], [place] [phone] Health Maintenance Due Date Last Done Comments Cologuard 1969 Colon Cancer Screening 1969 Colonoscopy 1969 FOBT / Fit Test 1969 HIV Screening 1969 Hepatitis C Screening 1969 Sigmoidoscopy 1969 Hepatitis B Vaccines (1 of 3 - 19+ 3-dose series) 1988 Mammogram 2009 Pneumococcal Vaccine: 50+ Ye ars (1 of 1 - PCV) 2019 COVID-19 Vaccine (2023-2 5 season) 2024 09/16/2022, 07/04/2021, 11/25/2020, Additional history exists Alcohol/Substance Use Screening 07/02/2024 Depression Screening and Follow-Up 07/02/2024 Social Drivers of Health Amy ual Screening 07/02/2024 Basic Metabolic Panel 12/12/2024 12/13/2023 , 11/24/2022, 10/16/2022, Additional history exists Influenza Vaccine (Season Ended) 2025 07/14/2023, 07/04/2021, 05/11/2020, Additional history exists DTaP,Tdap,and Td Vaccines (5 - Td or Tdap) 11/02/2033 11/03/2023, 07/24/2019, 07/04/2019, Additional history exists RSV Vaccine (60+ years old a nd patients) (1 - 1-dose 75+ series) 2044 Zoster Vaccines Completed 11/03/2023, 07/14/2023 Medical Devices Implanted Type Area Care Asst Device Identifier Shelf Expiration Date Model / Serial / Lot Device Closure Vascular 5fr Vascade - [id number] Implanted:Qty: 1 on 11/30/2022 at [facility] Implant [id number] 08/22/2024 [id number] / / [id number] Procedures * Due to [place] [employer] law, this organization might not be sharing negative HIV tests. Procedure Name Priority Date/Time Associated Diagnosis Comments COMPREHENSIVE METABOLIC PANEL Routine 12/13/2023 2:02 PM EDT Seizure-like activity from Last 3 Months or Most Recently Relevant to Health Maintenance Results * Due to [place] [employer] law, this organization might not be sharing negative HIV tests. * (ABNORMAL) Comprehensive Metabolic Panel (12/13/2023 2:02 PM EDT) NA 139 135 - 145 mmol/L 12/13/2023 3:29 PM EDT [facility] K 4.6 3.5 - 5.3 mmol/L 12/13/2023 3:29 PM EDT [facility] Cl 100 98 - 107 mmol/L 12/13/2023 3:29 PM EDT [facility] CO2 28 24 - 32 mmol/L 12/13/2023 3:29 PM EDT [facility] Anion Gap 11 5 - 15 12/13/2023 3:29 PM EDT [facility] Glucose 112(H) 65 - 99 mg/dL 12/13/2023 3:29 PM EDT [facility] Creatinine 0.68 0.50 - 1.20 mg/dL 12/13/2023 3:29 PM EDT [facility] Calcium 10.5 8.6 - 10.5 mg/dL 12/13/2023 3:29 PM EDT [facility] Total Protein 6.9 6.0 - 8.0 g/dL 12/13/2023 3:29 PM EDT [facility] Albumin 4.8 3.5 - 5.2 g/dL 12/13/2023 3:29 PM EDT [facility] Bilirubin, Total 0.2 0.2 - 1.2 mg/dL 12/13/2023 3:29 PM EDT [facility] Alkaline Phosphatase 71 35 - 129 U/L 12/13/2023 3:29 PM EDT [facility] AST 16 10 - 40 U/L 12/13/2023 3:29 PM EDT [facility] ALT 22 10 - 40 U/L 12/13/2023 3:29 PM EDT [facility] BUN 10 7 - 23 mg/dL 12/13/2023 3:29 PM EDT [facility] eGFR >90 >=60 mL/min/1. 73m2 12/13/2023 3:29 PM EDT [facility] Comment: The estimated glomerular filtration rate (eGFR) is calculated using a new formula developed by the NKF-ASN task force to eliminate race-based correction factors. The new formula uses serum/plasma creatinine, age, and gender to determine eGFR. A value below 60mls/min might indicate kidney disease and will be flagged. For additional information, see Blade et al, Am J Kidney Dis. 2021;79(2):268-288, [...] will be flagged. For additional information, see Blade et al, Am J Kidney Dis. 2021;79(2):268-288, A Unifying Approach for GFR estimation: Recommendations of the NKF-ASN Task Force on Reassessing the Inclusion of Race in Diagnosing Kidney Disease . Globulin, Total 2.1 2.1 - 4.2 g/dL 12/13/2023 3:29 PM EDT [facility] A/G Ratio 2.3 1.5 - 3.0 12/13/2023 3:29 PM EDT [facility] Blood Structure of peripheral vein / Unknown Venipuncture / Unknown 12/13/2023 2:02 PM EDT 12/13/2023 2:31 PM EDT us Keith Conrad MD LAB BLOOD ORDERABLES Final Resul t [facility] [address] [id number], from Last 3 Months or Most Recently Relevant to Health Maintenance Insurance [facility] [employer] Advance Directives Documents on File Type Date Recorded Patient Catering Convention Services Manager Expl anation Health Care Proxy 11/24/2022 1:13 PM HEALTH CARE PROXY SCANNED IN Care Teams Entry Level Machine Operator Relationship Specialty Start Date End Date Whit Thakur [address] [place] [address] PCP - General Family Medicine 10/06/24
--- OUTSIDE RECORDS SUMMARY | 2024-10-29 08:27 | XMS_ITS | Encounter Summary ---
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 Conrad documented in this encounter Plan of Treatment Upcoming Encounters Date Type Department Care Team (Late st Contact Info) Description 12/09/2024 11:00 AM EDT Office Visit [facility] [address], [place] [phone] Keith Conrad MD [address] [place], [place] [phone] documented as of this encounter Visit Diagnoses Not on filedocumented in this encounter Care Teams Lead Worker Of Housekeeping And Laundry Relationship Specialty Start Date End Date Whit Thakur [address] [place] [address] PCP - General Family Medicine 10/06/24 documented as of this encounter
--- OUTSIDE RECORDS SUMMARY | 2024-10-29 08:27 | XMS_ITS | Encounter Summary ---
Author Organization [facility] Address [address] [place] [address] Care Team Providers Care Principal Secretary Name Role Phone Whit Thakur Primary Care Provider [phone] Encounter Details Date Type Department Care Team (Late st Contact Info) Description 07/22/2021 Telephone [facility] [address] [place] [phone] Telephone Intake, Staff Social History Tobacco Use [...] encounter Miscellaneous Notes * Telephone Encounter - eKith Conrad MD - 08/09/2021 11:24 AM EST Attempted to call again, no response. * Telephone Encounter - Keith Conrad MD - 07/28/2021 2:06 PM EST Attempted to call. No response. Will follow-up * Telephone Encounter - Sirena Bledsoe - 07/22/2021 4:[address] Conrad, Pt called requesting a call back from you to discuss findings from Dr. Lisseth Hurst whom you referred her to regarding Nancy. Pt may be reached at [phone] documented in this encounter Plan of Treatment Upcoming Encounters Date Type Department Care Team (Late st Contact Info) Description 12/09/2024 11:00 AM EDT Office Visit [facility] [address] [place] [phone] Keith Conrad MD [address] [place] [phone] documented as of this encounter Visit Diagnoses Not on filedocumented in this encounter Care Teams Principal Secretary Relationship Specialty Start Date End Date Whit Thakur [address] [place] [address] PCP - General Family Medicine 10/06/24 documented as of this encounter
--- OUTSIDE RECORDS SUMMARY | 2024-10-29 08:27 | XMS_ITS | Encounter Summary ---
Author Organization [facility] Address [address] [place] [address] Care Team Providers Care Program Dir Name Role Phone Blaze, Emmettkenya Primary Care Provider [phone] Reason for Visit * Insurance Referral (Routine) - Authorized Specialty Diagnoses / Procedures Referred By Lety ortiz Referred To Contact Neurology Diagnoses Encounter for examination and observation for unspecified reason Return in 8 months (around 12-27-2023) Procedures FOLLOW UP Keith Conrad MD [address] [place] [address] Phone: tel: fax: Referral ID Status Reason Start Date Expiration Date V isits Requested Visits Authorized [id number] Authorized 11/13/2023 11/12/2024 6 6 Encounter Details Date Type Department Care Team (Late st Contact Info) Description 10/24/2024 3:00 PM EDT Office Visit [facility] [address] [place] [address] Ricky Devries NP [address] [place] [address] Seizure-like activity (HCC) (Primary Dx) Social History Tobacco Use Types Packs/Day Years [...] PM EDT documented as of this encounter Last Filed Vital Signs Vital Sign Reading [...] Mass Index 36.05 10/24/2024 2:44 PM EDT documented in this encounter Progress Notes * Ricky Devries NP - 10/24/2024 3:00 PM EDT [facility] NOTE Patient: Kenya Crespo : 1970 PCP: Whit Thakur Date: 10/24/2024 CC: episodes concerning for seizure SUBJECTIVE: HISTORY OF PRESENT ILLNESS: This is a return visit for this 54 y.o. right handed female with history of chronic refractory headache syndrome and transient neurological symptoms, who presents to [facility] epilepsy clinic for routine follow-up regarding episodes concerning for seizure. Patient was last seen in clinic December [address] Conrad. Patient presents today alone. History (per previous providers): She was initially referred by her PCP for further evaluation and is currently cross-tapering her lamictal with depakote. She describes her semiology as events associated with head pain with nausea, trouble thinking, making decisions, generalized weakness, speech slurs, and increased forgetfulness. These events will last from 5 minutes to 30 minutes followed by post ictal confusion sometimes [id number] minutes that is worse than during the event, with no changes in orientation but increased difficulties with thinking and doing things. These events occur many times during the day, every day. They Improve with laying down, putting ice pack on head, and sitting in a quiet room. There has neverbeen any tongue biting or urinary/fecal incontinence, loss of consciousness or abnormal movements of the arms and legs associated with these events. In regards to her seizure history, she was at [facility] for migraine, imbalance, high blood pressure in 2014. She does not recall much of her medical history. She was admitted for 5 days, where they did brain imaging that was reportedly normal and an ambulatory EEGs that were also normal. She was already on lamictal that was increased to 100mg q12h.She then established care with Ruchi Arias, a neurologist at [facility] in [place], [place]. In 2016, she went to [facility] for similar symptoms of imbalance, slurred speech, weakness and cognitive changes (poor memory and concentration). She had a 3 day ambulatory EEG that showed intermittent left frontal sharps on first day but was otherwise normal. MRI reportedly showed white matter changes (imaging or report not available). Per chart review, she presented [facility] on 08/01/2020 after being concerned for stroke with symptoms dizziness, imbalance, slurred speech and shakiness with full recollection of events. Sister says eyes were sticking out and moving side to side with poor balance, slurred speech, headache, exacerbated chronic high frequency low amplitude tremors in arms and legs that improved with lamictal, high blood pressure, poor memory, difficulty thinking, and vertigo. Unknown brain imaging that was reportedly normal. Discharged home with no changes to AEDs and plan to follow-up with PCP. She was last seen by her PCP Dr. Arvizu on 09/2020 for semiology including nausea, headache, shakieness, with no changes in consciousness. She had a normal spot EEG on 09/22/2020 and ambulatory EEG on 10/19/2020 with push button events for head pain, nausea, tremors, eye pain, imbalance, weaknesss, difficulty concentration exhibiting no epileptiform activity. Seizure Risk Factors: - The patient was born 44 weeks, needed help with reading in school but on other - No febrile seizures or meningitis at a young age - No family history of seizures - No prior history of seizures - none prior 2014 - History of head trauma - none. INTERVAL HISTORY: Doing well. Headaches improved and stable. No events concerning for seizures. She is looking for medical clearance for left total knee replacement that is scheduled in October. No other concerns today. CURRENT AED MEDICATIONS: Lamotrigine 200 mg twice daily Divalproex DR 500 mg twice daily Gabapentin 1200 mg 3 times a day PREVIOUS AED MEDICATIONS: Unknown Date of onset: 2014 Etiology: Unknown/cryptogenic Event types and description: A) Suspected migraine B) Other transient neurological symptoms she calls seizure gets shaky, hard to walk, has to lay down, speech gets bad, eyes get bad. Hard time thinking. Hard time making decisions. Hard time functioning. Seizure/Event Frequency: A B 05/10/2022 10/25/2022 04/27/2023 12/13/2023 10/24/2024 Continuous, up to 5x per day Daily Daily; improved Daily improved Many times per day Daily- but improved Every other day Rare, q 3-4 month 0 Medication Adherence: Missed doses Side effects 05/10/2022 10/25/2022 04/27/2023 12/13/2023 10/24/2024 None None None None none None known None known None known None known None known REVIEW OF SYSTEMS: Pertinent items are noted in HPI. ?SOCIAL HISTORY: Education: -- Occupation: -- Living Situation: Lives with her son Transport/Mobility: not driving, ambulatory Alcohol, tobacco, illicits: no etoh, no marijuana or tobacco Family planning: n/a Psychiatric and suicidal ideations: denies MEDICATIONS: Current Outpatient Medications: acetaminophen (TYLENOL) 500 mg tablet, Take 1,000 mg by mouth every 6 hours as needed for pain., Disp: , Rfl: amLODIPine-benazepriL (LOTREL) 10-20 mg per capsule, Take 1 capsule by mouth once a day., Disp: , Rfl: ascorbic acid (VITAMIN C) 500 mg tablet, Take 500 mg by mouth once a day., Disp: , Rfl: atorvastatin (LIPITOR) 10 mg tablet, Take 10 mg by mouth nightly., Disp: , Rfl: betamethasone dipropionate (DIPROSONE) 0.05 % cream, SMARTSIG:Topical Twice Daily PRN, Disp: , Rfl: calcium carbonate (OS-MYRTLE) 500 mg calcium (1,250 mg) tablet, Take 1 tablet by mouth once a day., Disp: , Rfl: divalproex DR (DEPAKOTE) 250 mg EC tablet, Take 2 tablets (500 mg total) by mouth every morning AND2 tablets (500 mg total) every evening., Disp: 360 tablet, Rfl: 3 gabapentin (NEURONTIN) 600 mg tablet, Take 2 tablets (1,200 mg total) by mouth 3 times a day., Disp: 540 tablet, Rfl: 3 hydrOXYzine HCL (ATARAX) 25 mg tablet, Take 25 mg by mouth as needed for itching Indications: anxious., Disp: , Rfl: lamoTRIgine (LaMICtal) 25 mg tablet, Take 8 tablets (200 mg total) by mouth 2 times a day, Disp: 1440 tablet, Rfl: 11 meclizine (ANTIVERT) 25 mg tablet, TAKE 1 TABLET BY MOUTH 3 TIMES A DAY NEEDED FOR NAUSEA AND VOMITING, Disp: , Rfl: multivitamin capsule, Take 1 capsule by mouth once a day., Disp: , Rfl: mupirocin (BACTROBAN) 2% ointment, APPLY TO AFFECTED AREA TWICE A DAY FOR DRYNESS AND ITCHING IN THE EARS, Disp: , Rfl: omeprazole (PriLOSEC) 40 mg capsule, SMARTSI Capsule(s) By Mouth Twice Daily, Disp: , Rfl: ondansetron (ZOFRAN) 4 mg tablet, Take 4 mg by mouth every 8 hours as needed for nausea or vomiting., Disp: , Rfl: POTASSIUM ORAL, Take by mouth. Pt cannot recall how many mEq, Disp: , Rfl: propranoloL (INDERAL) 40 mg tablet, Take 40 mg by mouth 2 times a day., Disp: , Rfl: triamcinolone acetonide (KENALOG) 0.1% cream, SMARTSIG:Topical Twice Daily PRN, Disp: , Rfl: vitamin B complex vit C no.4 (SUPER B COMPLEX + C ORAL), Take 1 tablet by mouth once a day., Disp: , Rfl: ALLERGIES: Allergies Allergen Reactions Baclofen Unknown hallucinations Codeine Vomiting Latex Hives and Itching PAST MEDICAL HISTORY: Past Medical History: Diagnosis Date Anxiety Delayed emergence from general anesthesia Very slow to come around from anesthesia (especially with her colonoscopy) Depression Dermatitis Stasis dermatitis of the BLEs (R>L) GERD (gastroesophageal reflux disease) PPI controlled HTN (hypertension) Kidney stone 1986 during , passed while in the hospital Migraines Similar to her seizures, head pain is much worse, weak, ataxia, speech changes, and memory issues. Seizures (HCC) Seizure-like activity - improved with the medication, Maybe 1 every 1-3 days. Will get head pain, dizziness, ataxia, tremor, has awareness during the episodes. PAST SURGICAL HISTORY: Past Surgical History: Procedure Laterality Date CARPAL TUNNEL RELEASE CARPAL TUNNEL RELEASE COLONOSCOPY HYSTERECTOMY LIPOMA RESECTION PARTIAL HYSTERECTOMY UPPER GASTROINTESTINAL ENDOSCOPY FAMILY HISTORY: Family History Problem Relation Age of Onset Hypertension Mother Dementia Mother COPD Father Camden's disease Father Brain Aneurysm Sister Brain Aneurysm Maternal Grandmother SOCIAL HISTORY: Social History Socioeconomic History Marital status: Spouse name: Not on file Number of children: Not on file Years of education: Not on file Highest education level: Not on file Occupational History Not on file Tobacco Use Smoking status: Never Smokeless tobacco: Never Tobacco comments: Smoked off an on as a teenager. Quit at age 25 Vaping Use Vaping status: Never Used Substance and Sexual Activity Alcohol use: Not Currently Comment: rare wine Drug use: Never Sexual activity: Defer control/protection: Surgical Other Topics Concern Not on file Social History Narrative Not on file I have reviewed the patients medical history, allergies, medications and current problem list. OBJECTIVE: Vitals: 10/24/24 1444 BP: 102/64 BP Location: Left arm Patient Position: Sitting Pulse: 68 Resp: 18 Temp: 37 ??C (98.6 ??F) TempSrc: Oral SpO2: 95% Weight: 95.3 kg (210 lb) Height: 1.626 m (5' 4 ) PHYSICAL EXAM: Neuro: MENTAL STATUS: Alert and oriented to person, place, and date. No aphasia. No neglect. Attention andconcentration intact. CRANIAL NERVES: Pupils equal and reactive to light. Extraocular movement intact. Sensation in the face symmetrical. No facial asymmetry. Hearing intact. Tongue and palate move midline. No dysarthria.Shoulder shrug symmetrical. MOTOR TESTING: Normal tone. Normal bulk. Strength 5/5 bilaterally. No drift. COORDINATION: Intact [id number]. GAIT: intact REFLEXES: Present and symmetrical. SENSORY: Intact to touch without extinction. GENERAL: not in apparent distress PSYCH: calm, appropriate mood and affect HEENT: atraumatic, normocephalic, conjunctivae nonerythematous and non-icteric. Moist mucous membranes. NECK: Supple, thyroid midline RESPIRATORY: clear bilaterally CARDIAC: S1S2, regular heart beat, no gallops, murmurs SKIN: dry and warm, no edema LABS: Most recent AED levels: LTG VPA / fVPA GBP 12/17/2020 05/10/2022 10/25/2022 12/13/2023 8.0 13.6 13.9 12.6 27.2 / 2.2 82 88 58 12.8 11.9 18.2 Chemistry Component Value Date/Time NA 139 12/13/2023 1402 K 4.6 12/13/2023 1402 CL 100 12/13/2023 1402 CO2 28 12/13/2023 1402 BUN 10 12/13/2023 1402 CREATININE 0.68 12/13/2023 1402 Component Value Date/Time CALCIUM 10.5 12/13/2023 1402 ALKPHOS 71 12/13/2023 1402 AST 16 12/13/2023 1402 ALT 22 12/13/2023 1402 BILITOT 0.2 12/13/2023 1402 Lab Results Component Value Date WBC 8.5 12/13/2023 HGB 13.6 12/13/2023 HCT 40.6 12/13/2023 MCV 93.5 12/13/2023 PLT 403 (H) 12/13/2023 IMAGING/OTHER STUDIES: (selected images/results personally reviewed and pertinent results summarized below) MRA Head 10/22/15 = IMPRESSION: Normal MRA of the head/ Focal narrowing of the right callosal marginal anterior cerebral artery branch and a distal left middle cerebral artery branch present on the prior CTA are no longer present. EEG 12/29/20 = Normal Ambulatory EEG April 2021 = This ambulatory EEG is within normal limits during the awake and sleep states. No epileptiform activity or electrographic seizures were noted. Multiple events were captured as described above withoutEEG changes. MRI Brain 01/03/21 = IMPRESSION: No acute intracranial pathology or abnormal enhancement. Chronic findings as described above, unchanged since the prior study. EEG 05/19/22 = Normal Ambulatory EEG August 2022 = Summary of Findings: This ~ 3-day ambulatory EEG is mildly abnormal due to presence of intermittent and occasional focaldelta slowing in the right, left and bilateral frontotemporal areas. There were rare left frontotemporal sharp transients, none of which reached criteria for sharp waves. Seventeen clinical events reported. Clinically in 8/17 patient was off camera and in 9/17 there wasno apparent clinical correlate in the video. Patient reported feeling nauseated having pain in her head or having trouble concentrating or being clumsy in 5/17 in her diary. Electrographically, 17/17 events had no apparent epileptiform discharges or ictal build up. Interpretation: Based on this 3-day ambulatory video-EEG monitoring, 17/17 patient reported had no apparent electrographic correlate. The intermittent focal slowing in the bilateral fronto-temporal areas suggests presence of (bi)focal cerebral dysfunction of nonspecific etiology. Sharp transients are not necessarily abnormal. Neuropsychological Evaluation August 2022 = ([facility] [email or web address] ASSESSMENT & PLAN: Problem List Seizure-like activity (HCC) - Primary Overview First known seizure-like episode: 2014 Etiology: Unknown Ddx: Functional neurological events (i.e., PNES) vs migraine-related vs less likely occult/atypicalepilepsy Updated ASMs: LTG 200 mg po bid, VPA 500 mg po bid, GBP 1200 mg po 3 times a day Current Assessment & Plan Doing well on current regimen in regards to seizure events and headaches. No plans for medication changes today. In regards to her upcoming surgery, there is no contraindication to her having it. Sheis advised to continue to take LTG, GBP, and VPA as prescribed. She verbalizes understanding of this. Plan to follow up in November 2024 as scheduled. I spent a total time of 25 minutes on the date of encounter, which included: - Preparing to see the patient (e.g., review of test results) - Obtaining and/or reviewing separately obtained history - Performing a medially appropriate exam and/or evaluation - Counseling and educating the patient/family/caregiver - Ordering medications, tests, procedures - Referring and communicating with another healthcare professional, when not separately reported - Documenting clinical information in the health record - Independently interpreting results (not separately reported) and communicating results to the patient/family/caregiver - Care coordination not separately reported ----- A Note About Physician Documentation: If you are the patient referred to in this chart and reviewing your medical notes, you should know that medical documentation is often written with abbreviations and medical terminology. Physician documentation is typically written by physicians for other physicians to review in order to document what happened, tests that were ordered/interpreted and resulting diagnoses in the most efficient way possible. These notes are made available for patients to review but are not specifically written with patient consumption in mind. I always relay important health information directly to my patients as well as in the clinic instructions in lay-person terms. Please review your After Visit Summary (AVS) and call our clinic if you have questions. Ricky Devries, MSN, ENGINE SPECIALIST, PI/SENIOR RESEARCH ASSOCIATE-C Nurse Practitioner Neurology [address] [address] Clinic: [phone] documented in this encounter Miscellaneous Notes * Assessment & Plan Note - Ricky Devries NP - 10/24/2024 3:24 PM EDTAssociated Problem(s): Seizure-like activity (HCC) Doing well on current regimen in regards to seizure events and headaches. No plans for medication changes today. In regards to her upcoming surgery, there is no contraindication to her having it. Sheis advised to continue to take LTG, GBP, and VPA as prescribed. She verbalizes understanding of this. Plan to follow up in November 2024 as scheduled. documented in this encounter Plan of Treatment Upcoming Encounters Date Type Department Care Team (Late st Contact Info) Description 12/09/2024 11:00 AM EDT Office Visit [facility] [address] [place] [address] [phone] Keith Conrad MD [address] [place] [address] [phone] documented as of this encounter Visit Diagnoses Diagnosis Seizure-like activity (HCC)- Primary documented in this encounter Care Teams Program Dir Relationship Specialty Start Date End Date Whit Thakur [address] [place] [address] PCP - General Family Medicine 10/06/24 documented as of this encounter
--- OUTSIDE RECORDS SUMMARY | 2024-10-29 08:27 | XMS_ITS | Encounter Summary ---
Author Organization [facility] Address [address] [place] [address] Care Team Providers Care Outreach Counselor Name Role Phone Whit Thakur Primary Care Provider [phone] Encounter Details Date Type Department Care Team (Late st Contact Info) Description 08/02/2022 Orders Only [facility] [address] [place] [address] Shantel Cardoza MD [address] [place], [place] [phone] Headache syndrome; Transient neurological symptoms Social History [...] Description 12/09/2024 11:00 AM EDT Office Visit [facility] [address], [place] [phone] Keith Conrad MD [address] [place] [phone] documented as of this encounter Results * Due to [place] state law, this organization might not be sharing negative HIV tests. * Ambulatory EEG (08/02/2022 12:38 PM EST) Narrative Shantel Cardoza MD - 08/02/2022 12:38 PM EST Shantel Cardoza MD ? 08/02/2022 ??2:32 PM [facility] 3-DAY AMBULATORY CONTINUOUS VIDEO-EEG REPORT Patient: Kenya [...] and placement protocol in person by an reeling machine operator for the purposes of recording long-term [...] and referential electrode montages. The patient or commutator undercutter was instructed to keep an event log [...] discharges or ictal build up. Single Channel [employer] Functional Analyst: Rhythm: regular Rate (typical): ~ 66 bpm [...] Cardoza MD Staff Epileptologist 08/02/2022 12:38 PM us Keith Conrad MD NEUROLOGY ORDERABLES Final Resul t documented in this encounter Visit Diagnoses Diagnosis Headache syndrome Transient neurological symptoms documented in this encounter Care Teams Outreach Counselor Relationship Specialty Start Date End Date Whit Thakur [address] [place] [address] PCP - General Family Medicine 10/06/24 documented as of this encounter
--- OUTSIDE RECORDS SUMMARY | 2024-10-29 08:27 | XMS_ITS | Encounter Summary ---
Author Organization [facility] Address [address] [place] [address] Care Team Providers Care Plate Glass Polisher Name Role Phone Whit Thakur Primary Care Provider [phone] Encounter Details Date Type Department Care Team (Late st Contact Info) Description 03/02/2021 Telephone [facility] [address] [place] [address] [phone] Telephone Intake, Staff Social History Tobacco Use [...] Description 12/09/2024 11:00 AM EDT Office Visit [facility] [address] [place] [phone] Keith Conrad MD [address] [place] [address] documented as of this encounter Visit Diagnoses Not on filedocumented in this encounter Care Teams Plate Glass Polisher Relationship Specialty Start Date End Date Whit Thakur [address] [place] [phone] PCP - General Family Medicine 10/06/24 documented as of this encounter
--- OUTSIDE RECORDS SUMMARY | 2024-10-29 08:27 | XMS_ITS | Encounter Summary ---
Author Organization [facility] Address [address] [place] [address] Care Team Providers Care Cooker Mechanic Name Role Phone Whit Thakur Primary Care Provider [phone] Reason for Visit * Reason Onset Date Comments Patient has questions 04/27/2021 Pt of Ricky Devries; Pt of Anamaria Encounter Details Date Type Department Care Team (Late st Contact Info) Description 04/27/2021 Telephone [facility] [address] [place] [phone] Telephone Intake, Staff Patient has questions [...] PM EDT * Telephone Encounter - Siomara Christianson - 05/02/2021 4:04 PM EDT Patient states that [...] Description 12/09/2024 11:00 AM EDT Office Visit [facility] [address] [place] [address] Keith Conrad MD [address] [place] [address] documented as of this encounter Visit Diagnoses Not on filedocumented in this encounter Care Teams Cooker Mechanic Relationship Specialty Start Date End Date Whit Thakur [address] [place] [address] PCP - General Family Medicine 10/06/24 documented as of this encounter
--- OUTSIDE RECORDS SUMMARY | 2024-10-29 08:27 | XMS_ITS | Encounter Summary ---
Author Organization [facility] Address [address] [place] [address] Care Team Providers Care Tree Planter Name Role Phone Whit Thakur Primary Care Provider [phone] Reason for Visit * Reason Onset Date Comments Med Refill 07/15/2021 Encounter Details Date Type Department Care Team (Late st Contact Info) Description 07/15/2021 Telephone [facility] [address] [place] [address] Telephone Intake, Staff Med Refill Social [...] Miscellaneous Notes * Telephone Encounter - Claire Grant Carroll - 07/15/2021 3:51 PM EST recvd call [...] Please route your response back to the [facility] Neurology Admin Staff Pool. Thank you documented in this encounter Plan of Treatment Upcoming Encounters Date Type Department Care Team (Late st Contact Info) Description 12/09/2024 11:00 AM EDT Office Visit [facility] [address] [place] [phone] Keith Conrad MD [address] [place] [phone] documented as of this encounter Visit Diagnoses Not on filedocumented in this encounter Care Teams Tree Planter Relationship Specialty Start Date End Date Whit Thakur [address] [place] [address] PCP - General Family Medicine 10/06/24 documented as of this encounter
--- OUTSIDE RECORDS SUMMARY | 2024-10-29 08:27 | XMS_ITS | Encounter Summary ---
Author Organization [facility] Address [address] [place] [address] Care Team Providers Care Systems Integration Engineer Name Role Phone Whit Thakur Primary Care Provider [phone] Reason for Visit * Reason Onset Date Comments Referral Request 08/23/2021 Encounter Details Date Type Department Care Team (Late st Contact Info) Description 08/23/2021 Telephone [facility] Central Scheduling Department [address] [place] [phone] Telephone Intake, Staff Referral Request Social History [...] 2:12 PM EST PT returning call from Ramos regarding a referral to a specialist. I tried front desk lead but was unable to get ahold of anyone. Please reach out to PT with any information. documented in this encounter Plan of Treatment Upcoming Encounters Date Type Department Care Team (Late st Contact Info) Description 12/09/2024 11:00 AM EDT Office Visit [facility] [address] [place] [address] [phone] Keith Conrad MD [address] [place] [phone] documented as of this encounter Visit Diagnoses Not on filedocumented in this encounter Care Teams Systems Integration Engineer Relationship Specialty Start Date End Date Whit Thakur [address] [place] [address] PCP - General Family Medicine 10/06/24 documented as of this encounter
--- OUTSIDE RECORDS SUMMARY | 2024-10-29 08:27 | XMS_ITS | Encounter Summary ---
Author Organization [facility] Address [address] [place] [address] Care Team Providers Care Sourcing Consultant Name Role Phone Whit Thakur Primary Care Provider [phone] Reason for Visit * Reason Onset Date Comments Send message to Dr. Conrad 04/04/2021 Pt of Conrad EEG home device not working 04/04/2021 Encounter Details Date Type Department Care Team (Late st Contact Info) Description 04/04/2021 Telephone [facility] [address] [place] [address] Telephone Intake, Staff Send message to [...] technical difficulty with the EEG device the [facility] took it back. The pt neverhad the EEG reading started before the device issue. She would like a new device. Can we have a device sent to her in the mail? #[phone] * Telephone Encounter - Siomara Meghan - [...] be reached at her home number at [phone]. Thank you documented in this encounter Plan of Treatment Upcoming Encounters Date Type Department Care Team (Late st Contact Info) Description 12/09/2024 11:00 AM EDT Office Visit [facility] [address] [place] [address] Keith Conrad MD [address] [place] [address] documented as of this encounter Visit Diagnoses Not on filedocumented in this encounter Care Teams Sourcing Consultant Relationship Specialty Start Date End Date Whit Thakur [address] [place] [address] PCP - General Family Medicine 10/06/24 documented as of this encounter
--- OUTSIDE RECORDS SUMMARY | 2024-10-29 08:27 | XMS_ITS | Encounter Summary ---
Author Organization [facility] Address [address] [place] [address] Care Team Providers Care Ms Sql Developer Name Role Phone Whit Thakur Primary Care Provider [phone] Reason for Visit * Reason Onset Date Comments Med Refill 10/26/2024 Encounter Details Date Type Department Care Team (Late st Contact Info) Description 10/26/2024 Refill [facility] [address] [place] [address] Keith Conrad MD [address] [place], [place] [phone] Seizure-like activity (HCC); Intractable chronic migraine without [...] Description 12/09/2024 11:00 AM EDT Office Visit [facility] [address] [place] [address] Keith Conrad MD [address] [place] [address] documented as of this encounter Visit Diagnoses Diagnosis Seizure-like activity (HCC) Intractable chronic migraine without aura and without status migrainosus documented in this encounter Care Teams Ms Sql Developer Relationship Specialty Start Date End Date Whit Thakur [address] [place] [address] PCP - General Family Medicine 10/06/24 documented as of this encounter
--- OUTSIDE RECORDS SUMMARY | 2024-10-29 08:27 | XMS_ITS | Encounter Summary ---
Author Organization [facility] Address [address] [place] [address] Care Team Providers Care Review Coordinator Name Role Phone Whit Thakur Primary Care Provider [phone] Reason for Visit * Reason Onset Date Comments cs appointment new botox 11/29/2022 Encounter Details Date Type Department Care Team (Late st Contact Info) Description 11/29/2022 Telephone [facility] Central Scheduling Department [address] [place] [address] Telephone Intake, Staff cs appointment new botox [...] to schedule appointment. DT send TE Kenya: [phone] Thank you documented in this encounter Plan of Treatment Upcoming Encounters Date Type Department Care Team (Late st Contact Info) Description 12/09/2024 11:00 AM EDT Office Visit [facility] [address] [place] [address] Keith Conrad MD [address] [place] [address] documented as of this encounter Visit Diagnoses Not on filedocumented in this encounter Care Teams Review Coordinator Relationship Specialty Start Date End Date Whit Thakur [address] [place] [address] PCP - General Family Medicine 10/06/24 documented as of this encounter
--- OUTSIDE RECORDS SUMMARY | 2024-10-29 08:27 | XMS_ITS | Encounter Summary ---
Author Organization [facility] Address [address] [place] [address] Care Team Providers Care Water Treatment Operator Name Role Phone Whit Thakur Primary Care Provider [phone] Reason for Visit * Reason Onset Date Comments PAC Patient Request Call Back 09/24/2024 PAC Appt Request - New 09/24/2024 Encounter Details Date Type Department Care Team (Late st Contact Info) Description 09/24/2024 Telephone [facility] [address] [place] [address] Telephone Intake, Staff PAC Patient Request Call Back; PAC Appt Request - New Social History Tobacco Use Types Packs/Day Years [...] encounter Miscellaneous Notes * Telephone Encounter - Una Dominguez - 09/29/2024 3:45 PM EDT Patient calling checking on the status of booking an appointment with Dr. Conrad for medical clearance for an upcoming surgery. Please reach out to patient at [phone]. * Telephone Encounter - Keith Conrad MD - 09/26/2024 10:14 AM EDT I could offer her Saturday 10/07 at 10:00 AM for 1 hour. * Telephone Encounter - Marybel Shaw - 09/24/2024 4:44 PM EDT Pt needs an appt with Dr conrad for a medical clear for a knee surgery on 10/21. Please reach out to pt [phone] documented in this encounter Plan of Treatment Upcoming Encounters Date Type Department Care Team (Late st Contact Info) Description 12/09/2024 11:00 AM EDT Office Visit [facility] [address] [place] [address] Keith Conrad MD [address] [place] [address] documented as of this encounter Visit Diagnoses Not on filedocumented in this encounter Care Teams Water Treatment Operator Relationship Specialty Start Date End Date Whit Thakur [address] [place] [address] PCP - General Family Medicine 10/06/24 documented as of this encounter
--- OUTSIDE RECORDS SUMMARY | 2024-10-29 08:27 | XMS_ITS | Encounter Summary ---
Author Organization [facility] Address [address] [place] [address] Care Team Providers Care Coremaker Experimental Name Role Phone Whit Thakur Primary Care Provider [phone] Encounter Details Date Type Department Care Team (Late st Contact Info) Description 03/01/2021 Telephone [facility] [address] [place] [address] Telephone Intake, Staff Social History Tobacco [...] Description 12/09/2024 11:00 AM EDT Office Visit [facility] [address] [place] [address] Keith Conrad MD [address] [place] [address] documented as of this encounter Visit Diagnoses Not on filedocumented in this encounter Care Teams Coremaker Experimental Relationship Specialty Start Date End Date Whit Thakur [address] [place] [address] PCP - General Family Medicine 10/06/24 documented as of this encounter
--- OUTSIDE RECORDS SUMMARY | 2024-10-29 08:27 | XMS_ITS | Encounter Summary ---
Author Organization [facility] Address [address] [place] [address] Care Team Providers Care Varnishing Unit Tool Setter Name Role Phone Whit Thakur Primary Care Provider [phone] Encounter Details Date Type Department Care Team (Late st Contact Info) Description 01/11/2021 myChart Message [facility] [address] [place] [address] Iván Clinton MD [address] [place] [address] Test Results Question Social History Tobacco Use [...] Description 12/09/2024 11:00 AM EDT Office Visit [facility] [address] [place], [place] [phone] Keith Conrad MD [address] [place], [place] [phone] documented as of this encounter Visit Diagnoses Not on filedocumented in this encounter Care Teams Varnishing Unit Tool Setter Relationship Specialty Start Date End Date Whit Thakur [address] [place] [address] PCP - General Family Medicine 10/06/24 documented as of this encounter
--- OUTSIDE RECORDS SUMMARY | 2024-10-29 08:27 | XMS_ITS | Encounter Summary ---
Author Organization [facility] Address [address] [place] [address] Care Team Providers Care Culinary Assistant Name Role Phone Whit Thakur Primary Care Provider [phone] Encounter Details Date Type Department Care Team (Late st Contact Info) Description 07/19/2021 myChart Message [facility] [address] [place] [address] Jackie Ritchie MA Medication question Social History [...] 12/09/2024 11:00 AM EDT Office Visit [facility] [address] [place] [address] Keith Conrad MD [address] [place] [address] documented as of this encounter Visit Diagnoses Not on filedocumented in this encounter Care Teams Culinary Assistant Relationship Specialty Start Date End Date Whit Thakur [address] [place] [address] PCP - General Family Medicine 10/06/24 documented as of this encounter
--- OUTSIDE RECORDS SUMMARY | 2024-10-29 08:27 | XMS_ITS | Clinical Summary ---
Author Organization [facility] Address [address] [place] [phone] Phone Care Team Providers Care Cw Operator Name Role Phone Physician, No Pcp Primary [...] 09/04/2023 Venous insufficiency 09/04/2023 Overview (04/29/2024): Per [facility] records. Carpal tunnel syndrome 04/25/2023 Chronic headache 04/25/2023 GERD (gastroesophageal reflux disease) HTN (hypertension) 04/25/2023 Memory changes 04/25/2023 Mixed incontinence 04/25/2023 Overview (04/29/2024): Last Assessment & Plan: Per [facility] records Obesity (BMI 35.0-39.9 without comorbidity) 04/02 Seizure (CMS/HCC V24, CMS/HCC V28) 04/25/2023 Encounters Date Type Department Care Team Description 08/14/2024 Telephone Pulmonolgy - [address] [place] [address] Sha Diamond MD from Last [...] DX:Dyspare unia in female Family history of Throckmorton's disease DX:Family history of Nay's disease GERD (gastroesophageal reflux disease) DX:GERD (gastroesophageal reflux disease) Mixed hyperlipidemia DX:Mixed hy perlipidemia Essential (primary) hypertension DX:Essential (primary) hypertension Mixed incontinence DX:Mixed inco ntinence Seizure disorder (CMS/HCC V2 4, CMS/HCC V28) DX:Seizure disorder (HCC) Venous insufficiency DX:Venous i nsufficiency [...] Team (Late st Contact Info) Description 11/03/2024 9:00 AM EDT Office Visit Pul[facility]olgy - [place] [facility] [address] [place] [address] Sha Diamond MD [address] [facility] [address] [place] [address] Health Maintenance Due Date Last Done Comments Breast Cancer Screening 1969 Hepatitis B Vaccines (1 of 3 - 19+ 3-dose series) 1988 Cervical Cancer Screening: Pap Smear 1990 Pneumococcal Vaccine: 50+ Years (1 of 1 - PCV) 2019 Colorectal Cancer Screening: Colonoscopy 07/27/2023 Depression Screening 07/27/2023 HIV Screening 07/27/2023 Social Influencers of Health Screening 07/27/2023 COVID-19 Vaccine ( season) 2024 09/16/2022, 07/04/2021, 11/25/2020, Additional history exists Hypertension/CHF/CAD Annual BMP Blood Test 12/12/2024 12/13/2023, 12/13/2023 Influenza Vaccine (Season Ended) 2025 07/14/2023, 07/04/2021, 05/11/2020, Additional history exists Cholesterol Screening (Lipid Panel) 08/06/2028 08/06/2023 DTaP,Tdap,and [...] age to complete this topic Meningococcal B Vaccine Aged Out No l onger eligible based on patient's age to complete [...] Procedure Name Priority Date/Time Associated Diagnosis Comments ANNUAL BMP BLOOD TEST Routine 12/13/2023 HEPATITIS C SCREENING Routine 08/06/2023 LIPID PANEL Routine 08/06/2023 from Last 3 Months or Most Recently Relevant to Health Maintenance Results * Annual BMP Blood Test (12/13/2023) Pathologist [facility] Annual BMP Blood Test Abstracted Historical Provider HEALTH MAINTENANCE Final Result * Hepatitis C Screening (08/06/2023) Pathologist [facility] Hepatitis C Screening Abstracted [facility] Provider MD HEALTH MAINTENANCE Final Result * (ABNORMAL) Lipid panel (08/06/2023) [facility] LDL/HDL Ratio 5(A) 0 - 4 Triglycerides 157(A) 0 - 150 mg/dL Cholesterol 223(A) 0 - 200 mg/dL HDL 46 >=40 mg/dL LDL Cholesterol 146(A) 0 - 100 mg/dL Blood Venous blood specimen / Unknown [facility] Provider MD LAB BLOOD ORDERABLES Ginna l Result from Last 3 Months or Most Recently Relevant to Health Maintenance Insurance [facility] MEDICAID Care Teams Cw Operator Relationship Specialty Start Date End Date Physician, No Pcp PCP - General 05/27/24
--- OUTSIDE RECORDS SUMMARY | 2024-10-29 08:27 | XMS_ITS | Encounter Summary ---
Author Organization [facility] Address [address] [place] [address] Care Team Providers Care Graduate Engineer Name Role Phone Whit Thakur Primary Care Provider [phone] Encounter Details Date Type Department Care Team (Late st Contact Info) Description 03/22/2022 Telephone [facility] [address] [place] [phone] Telephone Intake, Staff Social History Tobacco Use [...] - 03/27/2022 10:38 AM EDT PT-1 Number: [id number] Neurology Clinic - EXP: 03/23/2023 Treatment Details [...] Description 12/09/2024 11:00 AM EDT Office Visit [facility] [address] [place], [place] [phone] Keith Conrad MD [address] [place] [address] documented as of this encounter Visit Diagnoses Not on filedocumented in this encounter Care Teams Graduate Engineer Relationship Specialty Start Date End Date Whit Thakur [address] [place] [address] PCP - General Family Medicine 10/06/24 documented as of this encounter
--- OUTSIDE RECORDS SUMMARY | 2024-10-29 08:27 | XMS_ITS | Referral Summary ---
Author Organization [facility] Address [address] [place] [address] Care Team Providers Care Community Educator Name Role Phone Whit Thakur Primary Care Provider [phone] Encounters Date Type Department Care Team Description 10/26/2024 Refill [facility] [address] [place] [address] Keith Conrad MD Seizure-like activity (HCC); Intractable chronic migraine without aura and without status migrainosus 10/24/2024 3:00 PM EDT Office Visit [facility] Neurology [address] [address] Ricky Devries NP Seizure-like activity (HCC) (Primary Dx) 09/24/2024 Telephone [facility] [address] [place] [address] Telephone Intake, Staff PAC Patient Request Call Back; PAC Appt Request - New 08/13/2024 Refill [facility] [address] [place] [address] Oneyda Delcid [place] Seizure-like activity; Intractable chronic [...] different from the original. PT-1 Request Number [id number] is Approved, 2 visits per month for [...] appointments with the headache/migraine providers here at [facility]. She has since found a new provider for headache/migraine in the [facility] area who will be doing [...] me now that I have returned to [facility]. Regarding the episodes that she calls seizures, [...] HD: Reportedly was evaluated at a genetics center/[facility] center in [place], but those records are not available. Plans to be evaluated at genetics clinic at [facility]. - Continue Lamotrigine 200 mg twice [...] patient would prefer somewhere closer to home ([place]) - Ambulatory EEG pending - Seizure/Fall precautions [...] Description 12/09/2024 11:00 AM EDT Office Visit [facility] [address] [place] [address] Keith Conrad MD [address] [place] [address] Medical Devices Implanted Type Area Capacity Manager Device Identifier Shelf Expiration Date Model / Serial / Lot Device Closure Vascular 5fr Vascade - [id number] Implanted:Qty: 1 on 11/30/2022 at [facility] Implant [employer] EMM[employer] 08/22/2024 [id number] / / [id number] Procedures * Due to [facility] law, this organization might not be sharing negative HIV tests. Procedure Name Priority Date/Time Associated Diagnosis Comments COMPREHENSIVE METABOLIC PANEL Routine 12/13/2023 2:02 PM EDT Seizure-like activity from Last 3 Months or Most Recently Relevant to Health Maintenance Results * Due to [place] [employer] law, this organization might not be sharing negative HIV tests. * (ABNORMAL) Comprehensive Metabolic Panel (12/13/2023 2:02 PM EDT) NA 139 135 - 145 mmol/L 12/13/2023 3:29 PM EDT [facility] K 4.6 3.5 - 5.3 mmol/L 12/13/2023 3:29 PM EDT [facility] Cl 100 98 - 107 mmol/L 12/13/2023 3:29 PM EDT [facility] CO2 28 24 - 32 mmol/L 12/13/2023 3:29 PM EDT [facility] Anion Gap 11 5 - 15 12/13/2023 3:29 PM EDT [facility] Glucose 112(H) 65 - 99 mg/dL 12/13/2023 3:29 PM EDT [facility] Creatinine 0.68 0.50 - 1.20 mg/dL 12/13/2023 3:29 PM EDT [facility] Calcium 10.5 8.6 - 10.5 mg/dL 12/13/2023 3:29 PM EDT [facility] Total Protein 6.9 6.0 - 8.0 g/dL 12/13/2023 3:29 PM EDT [facility] Albumin 4.8 3.5 - 5.2 g/dL 12/13/2023 3:29 PM EDT [facility] Bilirubin, Total 0.2 0.2 - 1.2 mg/dL 12/13/2023 3:29 PM EDT [facility] Alkaline Phosphatase 71 35 - 129 U/L 12/13/2023 3:29 PM EDT [facility] AST 16 10 - 40 U/L 12/13/2023 3:29 PM EDT [facility] ALT 22 10 - 40 U/L 12/13/2023 3:29 PM EDT [facility] BUN 10 7 - 23 mg/dL 12/13/2023 3:29 PM EDT [facility] eGFR >90 >=60 mL/min/1. 73m2 12/13/2023 3:29 PM EDT [facility] Comment: The estimated glomerular [...] - 4.2 g/dL 12/13/2023 3:29 PM EDT [facility] A/G Ratio 2.3 1.5 - 3.0 12/13/2023 3:29 PM EDT [facility] Blood Structure of peripheral vein / Unknown Venipuncture / Unknown 12/13/2023 2:02 PM EDT 12/13/2023 2:31 PM EDT us Keith Conrad MD LAB BLOOD ORDERABLES Final Resul t [facility] [address] [place] [address], from Last 3 Months or Most Recently Relevant to Health Maintenance Insurance [employer] [id number] Advance Directives Documents on File Type Date Recorded Patient Keno Terminal Operator Expl anation Health Care Proxy 11/24/2022 1:13 PM HEALTH CARE PROXY SCANNED IN Care Teams Community Educator Relationship Specialty Start Date End Date Whit Thakur [address] [place] [address] PCP - General Family Medicine 10/06/24
--- OUTSIDE RECORDS SUMMARY | 2024-10-29 08:27 | XMS_ITS | Encounter Summary ---
Author Organization [facility] Address [address] [place] [address] Care Team Providers Care Costume Director Name Role Phone Whit Thakur Primary Care Provider [phone] Reason for Visit * Reason Onset Date Comments request to speak with nurse 04/18/2021 Dr Mumtaz cochran med question 04/18/2021 Encounter Details Date Type Department Care Team (Late st Contact Info) Description 04/18/2021 Telephone [facility] [address] [place] [address] Telephone Intake, Staff request to speak [...] is looking for a facility/office in the [facility]. She will speak with her pcp about potential clinic. She didn't have any other questions at this time. #[phone] * Telephone Encounter - Sharon Bay RN - 04/18/2021 3:09 PM EDT Pt called to report that the PCP refused to prescribe the diclofenac for the pt that is a neurologymedication. The pt stated that her previous neurologist Dr Arias from [facility] is who originally prescribed it for [...] call back from nurse Katherine Keita # [phone] Please route your response back to the [facility] Neurology Admin Staff Pool. Thank you documented in this encounter Plan of Treatment Upcoming Encounters Date Type Department Care Team (Late st Contact Info) Description 12/09/2024 11:00 AM EDT Office Visit [facility] [address] [place] [address] Keith Conrad MD [address] [place] [address] documented as of this encounter Visit Diagnoses Not on filedocumented in this encounter Care Teams Costume Director Relationship Specialty Start Date End Date Whit Thakur [address] [place] [address] PCP - General Family Medicine 10/06/24 documented as of this encounter
[2024-10-29 08:35] LABS: MANUAL DIFF FLAG NO
[2024-10-29 08:40] LABS: Basophils Absolute Auto 0.1 X10*3/uL (0.0-0.2); Basophils Percent Auto 0.9 % (0-2); Eosinophils Absolute Auto 0.2 X10*3/uL (0.0-0.4); Eosinophils Percent Auto 2.1 % (0-4); Hematocrit 39.2 % (37.0-47.0); Hemoglobin 13.2 g/dl (12.0-16.0); Imm Gran Abs Auto 0.03 X10*3/uL (0.00-0.03); Imm Gran Pct Auto 0.3 % (0.0-0.4); Lymphocytes Absolute Auto 3.3 X10*3/uL (1.2-4.9); Lymphocytes Percent Auto 37.1 % (20-40); Mean Corpuscular HGB Conc 33.7 g/dl (31.0-35.0); Mean Corpuscular Hemoglobin 31.2 pg (27.0-33.0); Mean Corpuscular Volume 92.7 fL (80.0-98.0); Mean Platelet Volume 8.7 fL (9.4-12.3); Monocytes Absolute Auto 0.5 X10*3/uL (0.1-1.2); Monocytes Percent Auto 5.2 % (2-11); Neutrophils Absolute Auto 4.8 x10*3/uL (2.0-8.3); Neutrophils Percent Auto 54.4 % (45-73); Platelet Count 387 X10*3/uL (160-400); Red Blood Count 4.23 X10*6/uL (4.20-5.50); Red Cell Distribution Width 12.9 % (11.0-16.0); White Blood Count 8.8 X10*3/uL (4.8-10.8)
[2024-10-29 09:00] LABS: Troponin-I High Sensitivity < 2.7 ng/L (<3.5-17.0)
[2024-10-29 09:06] LABS: Alanine Aminotransferase 21 U/L (0-31); Albumin Level 4.6 g/dL (3.5-5.0); Alkaline Phosphatase 78 U/L (39-117); Anion Gap 14 (12-20); Aspartate Amino Transferase 20 U/L (5-31); Bilirubin Total 0.3 mg/dL (0.0-1.0); Blood Urea Nitrogen 17 mg/dL (9-16); Calcium 10.3 mg/dL (8.4-10.2); Carbon Dioxide 28 mmol/L (22-29); Chloride 105 mmol/L (96-108); Creatinine Clr Calc Pharmacy 101.4; Estimated Glomerular Filt Rate > 60; Glucose Random 120 mg/dL (60-115); Potassium 4.6 mmol/L (3.3-5.1); Sodium 142 mmol/L (135-145); Total Protein 7.1 g/dL (6.5-8.0)
[2024-10-29] MEDS: 0.9 % Sodium Chloride 1,000 ML 999 ML IVCONT (09:08)
[2024-10-29] MEDS: diazePAM 10 MG/2 ML CARTRIDGE 2.5 MG IVPUSH (09:08)
--- NOTE | 2024-10-29 09:16 | PC.NURSE ---
Pt's sister at bedside, lives above pt; sister states the pt told her she took 6-8 25mg Lamotrigine tablets last night because she ran out of Depakote and she needed the Lamotrigine for pain ; MD at bedside during this conversation; pt denies SI/HI; unsure what time last night she took the tablets; Poison Control contacted at 0845 by this RN and spoke with Eun/poison production control pegboard clerk; labs ordered per recommendations and EKG performed; pt medicated per orders for anxiety and pt able to tolerate CT scan; will reassess EKG in 2 hours (10:45) for QT and QRS prolongation per Poison Control
[2024-10-29 09:28] LABS: Acetaminophen LAB 4 mcg/mL (<30); Ethanol < 10 mg/dL; Salicylate < 5.0 mg/dL (15-30); Valproate < 12.5 mcg/mL (50.0-100.0)
--- NOTE | 2024-10-29 10:39 | PC.NURSE ---
c collar removed per MD
--- NOTE | 2024-10-29 10:45 | ECG_ITS ---
Test Reason : overdose Blood Pressure : */* mmHG Vent. Rate : 83 BPM Atrial Rate : 83 BPM P-R Int : 224 ms QRS Dur : 162 ms QT Int : 384 ms P-R-T Axes : -5 76 127 degrees QTcB Int : 451 ms Poor data quality Sinus rhythm When compared with ECG of 29-Oct-2024 08:16, Poor data quality in current ECG precludes serial comparison Referred By: Taqueria Gudino Electronically Signed By: Israel Snow
[2024-10-29 11:03] LABS: Amphetamine Screen Urine Not Detected (Not Detect); Barbiturates, Urine Not Detected (Not Detect); Benzodiazepines Screen Urine Not Detected (Not Detect); Buprenorphine Scr Not Detected (Not Detect); Cannabinoid Screen Urine Not Detected (Not Detect); Cocaine Screen Urine Not Detected (Not Detect); Fentanyl, urine Not Detected (Not Detect); Methadone Screen, Urine Not Detected (Not Detect); Opiate Screen Urine Not Detected (Not Detect); Oxycodone Screen Urine Not Detected (Not Detect); Phencyclidine Screen Urine Not Detected (Not Detect)
--- NOTE | 2024-10-29 11:22 | PC.NURSE ---
Pt OOB with walker and one assist for safety; pt ambulating slowly, steadily
--- NOTE | 2024-10-29 11:39 | MHC.EDTECH ---
pt ambulated to bathroom with assistance from this tech and use of walker. Pt ambulated with a steady gait and no complaints were made when ambulating.
[2024-10-29 11:48] LABS: Phosphorus 2.7 mg/dL (2.7-4.5)
--- NOTE | 2024-10-29 12:58 | PM.IMHP ---
History of Present Illness Date of Service: 10/29/24 Attending physician on admission: Angie Carney Chief Complaint: Fall at home Pt is a 54-year-old female with a PMH significant for?HTN, HLD, seizure disorder, GERD, migraines, and mood disorder who presents to the ED after fall at home. Pt reports difficulties with short-term memory at baseline, though was particularly uncertain of events surrounding her fall this morning. Sister is at bedside who lives below the pt and helps supplement HPI. Pt on both lamotrigine and Depakote for seizure disorder. Follows with Dr. Green in Neurology in [place]. Reports ran out of Depakote with last dose on Sunday evening. On Sunday pt became worried about a breakthrough seizure and so attempted to compensate for the lack of Depakote by taking extra lamotrigine, up to 4-6 200mg pills. Pt reports some lightheadedness and dizziness beginning last night. This morning sister heard a loud crash and ran upstairs to find the pt with head in her arms leaning over a chair, bleeding from the face. Pt was agitated, anxious, crying, with slurred speech and flailing her arms uncontrollably. Pt apparently had fallen twice in the bathroom, striking her face against a tile wall and landing on her right side. Complained of lightheadedness and dizziness, headache, and facial pain. No chest pain/pressure, palpitations. No SOB or difficulty breathing. No cough. Pt reports last seizure around 6 months ago. In the ED pt was hypertensive up to 180/88, vitals otherwise stable and WNL. Labs grossly unremarkable and around baseline for pt. No leukocytosis. Stable H&H. No significant electrolyte abnormalities. Renal and hepatic function WNL. Troponin negative. CT?of head negative for acute intracranial hemorrhage or acute fracture. Does show global cerebral atrophy. CTA of face showing nasal bone fractures with associated soft tissue contusion. CT of cervical spine showing multilevel spondylolysis without acute fracture or trauma related lithiasis. Right hip x-ray negative for acute bony abnormality. EKG demonstrated normal sinus rhythm with nonspecific ST wave and T-wave abnormalities and QTc of 421. Repeat EKG is with similar, showing normal sinus rhythm with nonspecific ST and T-wave abnormalities and QTc of 435. ED provider contacted poison control who recommended serial EKGs and admission to the hospital for cardiac and neurological monitoring. Pt was treated in the ED with IVF and diazepam. Pt is admitted to the hospital for treatment and further evaluation of lamotrigine overdose. Review of Systems Review of Systems: Negative except for that which is stated in HPI. [facility] Medical History Osteoarthritis Anesthesia complication Pulmonary nodules Hyperlipidemia Chronic cluster headache, intractable Seizure disorder Migraine Acid reflux HTN (hypertension) Family History Mother Alcohol abuse FH: mental illness Father Alcohol abuse Brother Alcohol abuse FH: mental illness Maternal Grandfather Alcohol abuse Sister Alcohol abuse FH: mental illness Maternal Grandmother FH: mental illness Surgical History History of esophagogastroduodenoscopy (EGD) H/O colonoscopy History of carpal tunnel release Hx of hysterectomy Social History Household Members Other:: sister (each lives in own floor of a two family home)-son lives with pt. Housing: House Are you a primary early breastfeeding care specialist to a significant other at home: No Do you presently have visiting nurse or other home services: No Alcohol intake: never Patient Tobacco Use Status: Former Tobacco user Tobacco use type: Cigarette Years Smoked: 9 Smoked in Last 30 Days: No e-Cigarette/Vaping Use: Never Used Second Hand Smoke Exposure: Yes Use of substances other than those prescribed or required for medical reasons: No Advance Directives: Yes Advance Directives on File: Yes Advance Directives Date on File: 07/19/09 Do you have a plan to hurt others: No Plan Nutrition Risks: No Nutritional Risk Patient : No service: No 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al status: disabled 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 Cognitive needs: No Hearing needs: No Vision needs: Yes Meds Allergies Allergy/AdvReac Type Severity Reaction Status Date / Time baclofen Allergy Intermediate Dizziness/n Verified 10/29/24 07:58 ausea latex [LATEX] Allergy Intermediate Rash Verified 10/29/24 07:58 codeine [Codeine] AdvReac Intermediate Nausea and Verified 10/29/24 07:58 Vomiting Home Medications ?Medication ?Instructions ?Recorded ?Confirmed ?Last Taken ?Type divalproex 250 mg tablet,delayed 500 mg PO BID 09/23/21 10/29/24 Unknown History release lamotrigine 25 mg tablet 200 mg PO BID 02/12/23 10/29/24 Unknown History B-complex with vitamin C 1 tab PO DAILY 03/06/24 10/29/24 Unknown History gabapentin 600 mg tablet 1,200 mg PO TID 03/06/24 10/29/24 Unknown History amlodipine 10 mg-benazepril 20 mg 1 cap PO DAILY 10/21/24 10/29/24 Unknown History capsule atorvastatin 10 mg tablet 10 mg PO DAILY 10/21/24 10/29/24 Unknown History omeprazole 40 mg capsule,delayed 40 mg PO DAILY@0630 10/21/24 10/29/24 Unknown History release meclizine 25 mg tablet 25 mg PO QID PRN dizziness 10/29/24 10/29/24 Unknown History Physical Exam Vital Signs and Narrative: Vital Signs: Last Vital Signs Temp 98.7 F 10/29/24 12:03 Pulse 86 10/29/24 12:03 Resp 20 10/29/24 12:03 BP 128/70 10/29/24 12:03 Pulse Ox 97 10/29/24 12:03 O2 Del Method Room Air 10/29/24 12:03 BMI result Body Mass Index 35.9 General: AOx3, no acute distress Head/face: Superficial 2cm laceration to bridge of nose with surrounding swelling. Contusion to left upper forehead. Resp: CTA bilaterally CVS: S1, S2, RRR GI: +BS, NT, no distention Skin: Warm, dry. Small contusion to right elbow. Neuro: Cranial nerves II-XII grossly intact bilaterally. Motor grossly intact bilaterally Extremities: No edema. Tenderness to right lateral hip. Right hip ROM slightly reduced due to pain. Psych: Calm, cooperative Results Labs 10/29/24 08:30 10/29/24 08:30 Labs: Laboratory Results - last 24 hr 10/29/24 10/29/24 10/29/24 08:30 09:03 10:27 MCV 92.7 MCH 31.2 MCHC 33.7 RDW 12.9 Plt Count 387 MPV 8.7 L Immature Gran % (Auto) 0.3 Neut % (Auto) 54.4 Lymph % (Auto) 37.1 Love % (Auto) 5.2 Eos % (Auto) 2.1 Baso % (Auto) 0.9 Lymph # (Auto) 3.3 Love # (Auto) 0.5 Eos # (Auto) 0.2 Baso # (Auto) 0.1 Abs Immat Gran (auto) 0.03 Absolute Neuts (auto) 4.8 Absolute Nucleated RBC 0.000 Nucleated RBC % (auto) 0.0 Anion Gap 14 Estim Creat Clear Calc 101.4 Estimated GFR > 60 Random Glucose 120 H Calcium 10.3 H Phosphorus 2.7 Magnesium 2.0 Total Bilirubin 0.3 AST 20 ALT 21 Alkaline Phosphatase 78 Total Creatine Kinase 53 Total Protein 7.1 Albumin 4.6 Salicylates < 5.0 L Urine Opiates Screen Not Detected Ur Buprenorphine Scrn Not Detected Ur Oxycodone Screen Not Detected Urine Methadone Screen Not Detected Urine Fentanyl Screen Not Detected Acetaminophen 4 Ur Barbiturates Screen Not Detected Valproic Acid < 12.5 L Ur Phencyclidine Scrn Not Detected Ur Amphetamines Screen Not Detected U Benzodiazepines Scrn Not Detected Urine Cocaine Screen Not Detected U Marijuana (THC) Screen Not Detected Ethyl Alcohol < 10 Imaging Radiologist's Impressions: Impressions Head CT 10/29/24 08:00 IMPRESSION: No acute fracture, bony calvarium. No acute intracranial hemorrhage. Traumatic nasal bones deformities. Global cerebral atrophy. Electronically signed by: Fabian Calle MD 10/29/2024 09:56 AM EDT RP Face CT 10/29/24 08:08 IMPRESSION: Nasal bone fractures and has associated soft tissue contusion. Electronically signed by: Fabian Calle MD 10/29/2024 10:02 AM EDT RP Cervical Spine CT 10/29/24 09:12 IMPRESSION: Multilevel cervical spondylosis without acute fracture or trauma-related listhesis. Fleischner guidelines were followed. Electronically signed by: Fabian Calle MD 10/29/2024 10:20 AM EDT RP Assessment and Plan (1) Laceration of nose: Qualifiers: Encounter type: initial encounter Qualified Code(s): S01.21XA - Laceration without foreign body of nose, initial encounter Status: Acute (2) Overdose of lamotrigine: Status: Acute Plan Pt is a 54-year-old female with a PMH significant for?HTN, HLD, seizure disorder, GERD, migraines, and mood disorder who presents to the ED after fall at home. Pt reports difficulties with short-term memory at baseline, though was particularly uncertain of events surrounding her fall this morning. Pt was treated in the ED with IVF and diazepam. Pt is admitted to the hospital for treatment and further evaluation of lamotrigine overdose. Concern for lamotrigine overdose Pt took 800-1200mg of lamotrigine last night to compensate for running out of Depakote Pt with lightheadedness, dizziness, ataxia, falls at home, agitation, emotional lability, and dysarthria this morning ED contacted poison control who suggested serial EKGs and admission for cardiac monitoring EKG is x3 without significant ischemic changes or QTc prolongation Will repeat EKG Check lamotrigine levels Neurology consult Monitor on telemetry Falls at home Pt with facial and cephalic contusions CT of face showing nasal bone fractures Laceration to bridge of nose closed with glue in the ED Analgesics for pain management PT consult Seizure disorder Continue Depakote Hold lamotrigine pending Neurology input HTN Continue amlodipine-benazepril, propranolol HTN Continue statin Migraines Continue gabapentin GERD PPI Full Code Attending:?Dr. Carney DVT Prophylaxis: Lovenox Pt will require a hospitalization of at least two nights for treatment of?dizziness, lightheadedness, and falls at home in the setting of lamotrigine overdose that will require close cardiac monitoring on telemetry, as well as specialist consultation with Neurology and Physical therapy for safe disposition home. Quality Stroke Does the patient have a stroke diagnosis?: No VTE Prior VTE?: No VTE Risk Level:: Medical - moderate - high VTE Device Contraindication: Treatment Not Indicated VTE Drug Contraindication: N/A - Med Ordered
[2024-10-29 13:00] LABS: Acetaminophen LAB < 3 mcg/mL (<30)
--- NOTE | 2024-10-29 14:13 | PC.NURSE ---
Pt update provided to Eun from poison control; centre aware of pending admission and will follow up at pt DC
--- NOTE | 2024-10-29 14:18 | PC.NURSE ---
Pt tolerating PO fluids; pt requesting med for pain for RANDALL; provider made aware
--- NOTE | 2024-10-29 14:33 | PHA.MEDREC ---
Addendum entered by Kinza Dasilva [facility] 10/29/24 15:02: Reviewed by [facility] Original Note: Pharmacy Consult ? Medication Reconciliation Pharmacy has completed the medication reconciliation. Spoke to patient to confirm med list. Patient states she is not taking Acetaminophine 1,000 mg. Patient was able to confirm all her medications. Patient says she took extra of her Lamotrigine because she has been out of Divalproex 500 mg BID, last fill date was 10/28/24 (Not picked up, but still ready at [facility]). Divalproex dose was increase from 750 mg daily ( 250 mg qam and 500 mg QPM), last filled 08/11/24 to Divalproex 1,000 mg daily ( 500 mg (2x 250mg) QAM and 500 mg (2x 250mg) QPM). Patient states her normal dose of Lamotrigine is 200 mg (8x 25mg) BID, however last night she took 8 tabs of Lamotrigine 25 mg and more then 3 tablets of lamotrigine 200 mg. Patient states she had an old bottle of Lamotrigine 200 mg from [facility], however I called [facility] to confirm and [facility] states patient has only received the 25 mg tablets.
[2024-10-29] MEDS: Butalb/Acetamin/Caff 50/325/40 TABLET 1 TAB PO (15:04)
--- NOTE | 2024-10-29 15:34 | ED_ITS ---
HPI - Fall General Chief Complaint: Fall Stated Complaint: FALL,HIT HEAD,LAC TO NOSSE,-THINN,-LOC,+CCOLLAR Time Seen by Provider: 10/29/24 07:59 Source: patient and EMS Mode of arrival: EMS History of Present Illness Place fall occurred: home Related Data Home Medications ?Medication ?Instructions ?Recorded ?Confirmed divalproex 250 mg tablet,delayed 500 mg PO BID 09/23/21 10/29/24 release lamotrigine 25 mg tablet 200 mg PO BID 02/12/23 10/29/24 B-complex with vitamin C 1 tab PO DAILY 03/06/24 10/29/24 gabapentin 600 mg tablet 1,200 mg PO TID 03/06/24 10/29/24 amlodipine 10 mg-benazepril 20 mg 1 cap PO DAILY 10/21/24 10/29/24 capsule atorvastatin 10 mg tablet 10 mg PO DAILY 10/21/24 10/29/24 omeprazole 40 mg capsule,delayed 40 mg PO DAILY@0630 10/21/24 10/29/24 release meclizine 25 mg tablet 25 mg PO QID PRN dizziness 10/29/24 10/29/24 Previous Rx's ?Medication ?Instructions ?Recorded ondansetron 4 mg disintegrating 4 mg PO TID PRN nausea and 06/17/24 tablet vomiting 5 days #10 tabs walker #1 ea 09/22/24 propranolol 40 mg tablet 40 mg PO BID 30 days #60 tabs 10/13/24 Allergies Allergy/AdvReac Type Severity Reaction Status Date / Time baclofen Allergy Intermediate Dizziness/n Verified 10/29/24 07:58 ausea latex [LATEX] Allergy Intermediate Rash Verified 10/29/24 07:58 codeine [Codeine] AdvReac Intermediate Nausea and Verified 10/29/24 07:58 Vomiting Review of Systems 2 Constitutional: Constitutional: Reports no additional constitutional complaints Cardiovascular: Cardiovascular: Reports no additional cardiovascular complaints Gastrointestinal: Gastrointestinal: Reports no additional gastrointestinal complaints [facility] Past Medical History Attestation statement: The following information was validated with the patient. Medical History Osteoarthritis Anesthesia complication Pulmonary nodules Hyperlipidemia Chronic cluster headache, intractable Seizure disorder Migraine Acid reflux HTN (hypertension) Surgical History History of esophagogastroduodenoscopy (EGD) H/O colonoscopy History of carpal tunnel release Hx of hysterectomy Family History Family History Mother Alcohol abuse FH: mental illness Father Alcohol abuse Brother Alcohol abuse FH: mental illness Maternal Grandfather Alcohol abuse Sister Alcohol abuse FH: mental illness Maternal Grandmother FH: mental illness Social History Social History Household Members Other:: sister (each lives in own floor of a two family home)-son lives with pt. Housing: House Are you a primary reservoir caretaker to a significant other at home: No Do you presently have visiting nurse or other home services: No Alcohol intake: never Patient Tobacco Use Status: Former Tobacco user Tobacco use type: Cigarette Years Smoked: 9 Smoked in Last 30 Days: No e-Cigarette/Vaping Use: Never Used Second Hand Smoke Exposure: Yes Use of substances other than those prescribed or required for medical reasons: No Advance Directives: Yes Advance Directives on File: Yes Advance Directives Date on File: 07/19/09 Do you have a plan to hurt others: No Plan Patient : No service: No 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al status: disabled 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 Cognitive needs: No Hearing needs: No Vision needs: Yes Physical Exam 2 Vital Signs: Vital Signs: Last Vital Signs Temp 98.7 F 10/29/24 12:03 Pulse 86 10/29/24 12:03 Resp 20 10/29/24 12:03 BP 128/70 10/29/24 12:03 Pulse Ox 97 10/29/24 12:03 O2 Del Method Room Air 10/29/24 12:03 BMI result Body Mass Index 35.9 Medications Administered Discontinued Medications Generic Name Dose Route Start Last Admin Trade Name Freq PRN Reason Stop Dose Admin Acetaminophen/Butalbital/Caffeine 1 tab 10/29/24 14:48 10/29/24 15:04 Butalb/Acetamin/Caff 50/325/40 Tablet PO 10/29/24 14:49 1 tab ONCE ONE Administration Diazepam 2.5 mg 10/29/24 08:57 10/29/24 09:08 Diazepam 10 Mg/2 Ml Cartridge IVPUSH 10/29/24 08:58 2.5 mg STAT STA Administration Sodium Chloride 1,000 mls @ 999 mls/hr 10/29/24 08:15 10/29/24 10:07 Ns IVCONT 10/29/24 09:15 Infused .Q1H1M MISAEL Infusion Medical Decision Making Lab Data 10/29/24 08:30 10/29/24 08:30 Labs: Lab Results 10/29/24 10/29/24 10/29/24 Range/Units 08:30 09:03 10:27 WBC 8.8 (4.8-10.8) X10*3/uL RBC 4.23 (4.20-5.50) X10*6/uL Hgb 13.2 (12.0-16.0) g/dl Hct 39.2 (37.0-47.0) % MCV 92.7 (80.0-98.0) fL MCH 31.2 (27.0-33.0) pg MCHC 33.7 (31.0-35.0) g/dl RDW 12.9 (11.0-16.0) % Plt Count 387 (160-400) X10*3/uL MPV 8.7 L (9.4-12.3) fL Immature Gran % (Auto) 0.3 (0.0-0.4) % Neut % (Auto) 54.4 (45-73) % Lymph % (Auto) 37.1 (20-40) % [place] % (Auto) 5.2 (2-11) % Eos % (Auto) 2.1 (0-4) % Baso % (Auto) 0.9 (0-2) % Lymph # (Auto) 3.3 (1.2-4.9) X10*3/uL [place] # (Auto) 0.5 (0.1-1.2) X10*3/uL Eos # (Auto) 0.2 (0.0-0.4) X10*3/uL Baso # (Auto) 0.1 (0.0-0.2) X10*3/uL Abs Immat Gran (auto) 0.03 (0.00-0.03) X10*3/uL Absolute Neuts (auto) 4.8 (2.0-8.3) x10*3/uL Absolute Nucleated RBC 0.000 (0.0-0.012) X10*3/uL Nucleated RBC % (auto) 0.0 (0.0-0.2) /100WBC Sodium 142 (135-145) mmol/L Potassium 4.6 (3.3-5.1) mmol/L Chloride 105 (96-108) mmol/L Carbon Dioxide 28 (22-29) mmol/L Anion Gap 14 (12-20) BUN 17 H (9-16) mg/dL Creatinine 0.70 (0.5-1.4) mg/dL Estim Creat Clear Calc 101.4 Estimated GFR > 60 Random Glucose 120 H (60-115) mg/dL Calcium 10.3 H (8.4-10.2) mg/dL Phosphorus 2.7 (2.7-4.5) mg/dL Magnesium 2.0 (1.6-2.6) mg/dL Total Bilirubin 0.3 (0.0-1.0) mg/dL AST 20 (5-31) U/L ALT 21 (0-31) U/L Alkaline Phosphatase 78 (39-117) U/L Total Creatine Kinase 53 (26-140) U/L Troponin I High Sens < 2.7 (<3.5-17.0) ng/L Total Protein 7.1 (6.5-8.0) g/dL Albumin 4.6 (3.5-5.0) g/dL Salicylates < 5.0 L (15-30) mg/dL Urine Opiates Screen Not Detected (Not Detect) Ur Buprenorphine Scrn Not Detected (Not Detect) ng/mL Ur Oxycodone Screen Not Detected (Not Detect) ng/mL Urine Methadone Screen Not Detected (Not Detect) ng/mL Urine Fentanyl Screen Not Detected (Not Detect) Acetaminophen 4 (<30) mcg/mL Ur Barbiturates Screen Not Detected (Not Detect) Valproic Acid < 12.5 L (50.0-100.0) mcg/mL Ur Phencyclidine Scrn Not Detected (Not Detect) Ur Amphetamines Screen Not Detected (Not Detect) U Benzodiazepines Scrn Not Detected (Not Detect) Urine Cocaine Screen Not Detected (Not Detect) U Marijuana (THC) Screen Not Detected (Not Detect) Ethyl Alcohol < 10 mg/dL 10/29/24 Range/Units 12:40 WBC (4.8-10.8) X10*3/uL RBC (4.20-5.50) X10*6/uL Hgb (12.0-16.0) g/dl Hct (37.0-47.0) % MCV (80.0-98.0) fL MCH (27.0-33.0) pg MCHC (31.0-35.0) g/dl RDW (11.0-16.0) % Plt Count (160-400) X10*3/uL MPV (9.4-12.3) fL Immature Gran % (Auto) (0.0-0.4) % Neut % (Auto) (45-73) % Lymph % (Auto) (20-40) % [place] % (Auto) (2-11) % Eos % (Auto) (0-4) % Baso % (Auto) (0-2) % Lymph # (Auto) (1.2-4.9) X10*3/uL [place] # (Auto) (0.1-1.2) X10*3/uL Eos # (Auto) (0.0-0.4) X10*3/uL Baso # (Auto) (0.0-0.2) X10*3/uL Abs Immat Gran (auto) (0.00-0.03) X10*3/uL Absolute Neuts (auto) (2.0-8.3) x10*3/uL Absolute Nucleated RBC (0.0-0.012) X10*3/uL Nucleated RBC % (auto) (0.0-0.2) /100WBC Sodium (135-145) mmol/L Potassium (3.3-5.1) mmol/L Chloride (96-108) mmol/L Carbon Dioxide (22-29) mmol/L Anion Gap (12-20) BUN (9-16) mg/dL Creatinine (0.5-1.4) mg/dL Estim Creat Clear Calc Estimated GFR Random Glucose (60-115) mg/dL Calcium (8.4-10.2) mg/dL Phosphorus (2.7-4.5) mg/dL Magnesium (1.6-2.6) mg/dL Total Bilirubin (0.0-1.0) mg/dL AST (5-31) U/L ALT (0-31) U/L Alkaline Phosphatase (39-117) U/L Total Creatine Kinase (26-140) U/L Troponin I High Sens (<3.5-17.0) ng/L Total Protein (6.5-8.0) g/dL Albumin (3.5-5.0) g/dL Salicylates (15-30) mg/dL Urine Opiates Screen (Not Detect) Ur Buprenorphine Scrn (Not Detect) ng/mL Ur Oxycodone Screen (Not Detect) ng/mL Urine Methadone Screen (Not Detect) ng/mL Urine Fentanyl Screen (Not Detect) Acetaminophen < 3 (<30) mcg/mL Ur Barbiturates Screen (Not Detect) Valproic Acid (50.0-100.0) mcg/mL Ur Phencyclidine Scrn (Not Detect) Ur Amphetamines Screen (Not Detect) U Benzodiazepines Scrn (Not Detect) Urine Cocaine Screen (Not Detect) U Marijuana (THC) Screen (Not Detect) Ethyl Alcohol mg/dL Discharge Plan Discharge Clinical Impression: Overdose of lamotrigine, Dizziness Head injury Qualifiers: Encounter type: initial encounter Qualified Code(s): S09.90XA - Unspecified injury of head, initial encounter Closed fracture nasal bone Qualifiers: Encounter type: initial encounter Qualified Code(s): S02.2XXA - Fracture of nasal bones, initial encounter for closed fracture Laceration of nose Qualifiers: Encounter type: initial encounter Qualified Code(s): S01.21XA - Laceration without foreign body of nose, initial encounter Patient Disposition: Admitted As Inpatient
[2024-10-29] MEDS: Acetaminophen 325 MG TABLET 650 MG PO (19:53)
[2024-10-29] MEDS: Meclizine HCl 25 MG TABLET PO (19:54)
[2024-10-29] MEDS: Enoxaparin Sodium 40 MG/0.4 ML SYRINGE SUBCUT (19:54)
--- NOTE | 2024-10-29 20:15 | PC.NURSE ---
report tiger texted to EMELY Caballero
--- NOTE | 2024-10-29 20:21 | MHC.EDTECH ---
EKG done and sent to admitting provider via tiger text
[2024-10-29] MEDS: Propranolol HCL 40 MG TABLET PO (21:02)
[2024-10-29] MEDS: Divalproex Sodium 500 MG TABLET.DR PO (21:02)
[2024-10-29] MEDS: Gabapentin 600 MG TABLET 1200 MG PO (21:02)
[2024-10-29] MEDS: 0.9 % Sodium Chloride Flush 3 ML SYRINGE IVFLUSH (21:10)
[2024-10-30 03:30] VITALS: BP 123/65; PULSE 66; RESP 18; TEMP 36.3; O2SAT 96
[2024-10-30] MEDS: Omeprazole 40 MG CAPSULE.DR PO (05:53)
[2024-10-30 07:11] VITALS: BP 139/65; PULSE 67; RESP 14; TEMP 36.6; O2SAT 96
[2024-10-30 07:33] VITALS: BP 139/65; PULSE 67; O2SAT 96
[2024-10-30] MEDS: LISINOPRIL 20 MG PO (08:38)
[2024-10-30] MEDS: AMLODIPINE BESYLATE 10 MG PO (08:38)
[2024-10-30] MEDS: Gabapentin 600 MG TABLET 1200 MG PO ×3 (08:39→20:00)
[2024-10-30] MEDS: Divalproex Sodium 500 MG TABLET.DR PO ×2 (08:39→20:00)
[2024-10-30] MEDS: Propranolol HCL 40 MG TABLET PO ×2 (08:39→20:00)
[2024-10-30] MEDS: Atorvastatin Calcium 10 MG TABLET PO (08:39)
[2024-10-30] MEDS: 0.9 % Sodium Chloride Flush 3 ML SYRINGE IVFLUSH (08:39)
[2024-10-30] MEDS: Multivitamin TABLET 1 TAB PO (08:39)
[2024-10-30] MEDS: Acetaminophen 325 MG TABLET 650 MG PO ×2 (09:11→15:43)
[2024-10-30 09:46] LABS: Hematocrit 39.2 % (37.0-47.0); Hemoglobin 13.4 g/dl (12.0-16.0); Mean Corpuscular HGB Conc 34.2 g/dl (31.0-35.0); Mean Corpuscular Hemoglobin 31.9 pg (27.0-33.0); Mean Corpuscular Volume 93.3 fL (80.0-98.0); Mean Platelet Volume 9.3 fL (9.4-12.3); Platelet Count 393 X10*3/uL (160-400); Red Cell Distribution Width 13.2 % (11.0-16.0)
[2024-10-30 10:05] LABS: Alanine Aminotransferase 19 U/L (0-31); Albumin Level 4.3 g/dL (3.5-5.0); Alkaline Phosphatase 69 U/L (39-117); Anion Gap 14 (12-20); Aspartate Amino Transferase 20 U/L (5-31); Bilirubin Total 0.4 mg/dL (0.0-1.0); Blood Urea Nitrogen 12 mg/dL (9-16); Calcium 10.1 mg/dL (8.4-10.2); Carbon Dioxide 28 mmol/L (22-29); Chloride 104 mmol/L (96-108); Estimated Glomerular Filt Rate > 60; Glucose Random 87 mg/dL (60-115); Sodium 142 mmol/L (135-145); Total Protein 6.7 g/dL (6.5-8.0)
--- NOTE | 2024-10-30 10:54 | MHC.CM.PN ---
IMM 10/30/24, Pt lives with her son, her sister lives in apt. below and helps her, and his HCP, she will bring in a copy. Pt. does not have home care services. For DME, she has a walker, she is scheduled to have knee replacement surgery on 11/17/24. Sister to transport home at [place]. PT has rec. home services, referral placed with [facility], which is pt.'s choice. PCP confirmed: Whit Thakur. DCP: home with [facility]. CM to follow for [place] needs.
[2024-10-30 11:38] VITALS: BP 146/62; PULSE 64; RESP 16; TEMP 36.2; O2SAT 99
--- NOTE | 2024-10-30 15:36 | PM.NEUROCN ---
History of Present Illness Data of Consult Service Date: 10/30/24 Primary Care Provider: Whit Thakur CNP HPI Reason for consult: Encephalopathy 54 years old woman who provided her own history stating that she suffered from epilepsy and was seeing a neurologist in [place]. For some reason she had not seen a neurologist in this area. She said that she was taking Depakote, lamotrigine and gabapentin for seizures and recently ran out of Depakote and started taking additional lamotrigine. After sometime, she felt dizzy lightheaded and lethargic and lost balance and fell down. She came to emergency room were no acute finding was noted on her scan. This morning she was feeling much better. As far as seizures were concerned, she said that there made her dizzy drowsy and spacey and unsteady. Review of Systems Review of Systems: No recent cold or flu-like illness PMFSH Past Medical History Medical History Osteoarthritis Anesthesia complication Pulmonary nodules Hyperlipidemia Chronic cluster headache, intractable Seizure disorder Migraine Acid reflux HTN (hypertension) Family History Family History Mother Alcohol abuse FH: mental illness Father Alcohol abuse Brother Alcohol abuse FH: mental illness Maternal Grandfather Alcohol abuse Sister Alcohol abuse FH: mental illness Maternal Grandmother FH: mental illness Surgical History Surgical History History of esophagogastroduodenoscopy (EGD) H/O colonoscopy History of carpal tunnel release Hx of hysterectomy Social History Social History Household Members: Family Household Members Other:: patient lives with her son, sister lives below Housing: House Are you a primary reproductive healthcare assistant to a significant other at home: No Do you presently have visiting nurse or other home services: No Alcohol intake: never Patient Tobacco Use Status: Former Tobacco user Tobacco use type: Cigarette Years Smoked: 9 Smoked in Last 30 Days: No e-Cigarette/Vaping Use: Never Used Patient Interested in Nicotine Replacement: No Patient Given Instructions on How to Stop Smoking: No Second Hand Smoke Exposure: No Use of substances other than those prescribed or required for medical reasons: No Currently Displaying Signs/Symptoms of Drug Intoxication Withdrawal: No Any prior treatment program specific to substance use: No Have you been hit, kicked, punched, or otherwise hurt by someone within the past year? 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 Cognitive needs: No Hearing needs: No Vision needs: Yes Meds Allergies Allergy/AdvReac Type Severity Reaction Status Date / Time baclofen Allergy Intermediate Dizziness/n Verified 10/29/24 07:58 ausea latex [LATEX] Allergy Intermediate Rash Verified 10/29/24 07:58 codeine [Codeine] AdvReac Intermediate Nausea and Verified 10/29/24 07:58 Vomiting Active Medications: Current Medications Acetaminophen (Acetaminophen 325 Mg Tablet) 650 mg PO Q6H PRN PRN Reason: Pain, Mild 1-3,fever,headache Last Admin: 10/30/24 09:11 Dose: 650 mg Atorvastatin Calcium (Atorvastatin Calcium 10 Mg Tablet) 10 mg PO DAILY [facility] Last Admin: 10/30/24 08:39 Dose: 10 mg Calcium Carbonate (Calcium Carbonate 750 Mg Tab.Chew) 750 mg PO Q4H PRN PRN Reason: Heartburn Lisinopril 20 mg/ Amlodipine (Besylate 10 mg) 0 mg PO DAILY [facility] Last Admin: 10/30/24 08:38 Dose: 20 tablet Divalproex Sodium (Divalproex Sodium 500 Mg Tablet.Dr) 500 mg PO BID [facility] Last Admin: 10/30/24 08:39 Dose: 500 mg Enoxaparin Sodium (Enoxaparin Sodium 40 Mg/0.4 Ml Syringe) 40 mg SUBCUT Q24H [facility] Last Admin: 10/29/24 19:54 Dose: 40 mg Gabapentin (Gabapentin 600 Mg Tablet) 1,200 mg PO TID [facility] Last Admin: 10/30/24 08:39 Dose: 1,200 mg Magnesium Hydroxide (Milk Of Magnesia 30 Ml Oral.Susp) 30 ml PO DAILY PRN PRN Reason: Constipation Meclizine HCl (Meclizine Hcl 25 Mg Tablet) 25 mg PO QID PRN PRN Reason: dizziness Last Admin: 10/29/24 19:54 Dose: 25 mg Melatonin (Melatonin 3 Mg Tablet) 6 mg PO BEDTIME PRN PRN Reason: Insomnia Multivitamins/Vitamin C (Multivitamin Tablet) 1 tab PO DAILY [facility] Last Admin: 10/30/24 08:39 Dose: 1 tab Omeprazole (Omeprazole 40 Mg Capsule.Dr) 40 mg PO DAILY@629 [facility] Last Admin: 10/30/24 05:53 Dose: 40 mg Ondansetron HCl (Ondansetron Odt 4 Mg Tab.Rapdis) 4 mg TRANSLINGU TID PRN PRN Reason: nausea and vomiting Propranolol HCl (Propranolol Hcl 40 Mg Tablet) 40 mg PO BID [facility]; Protocol Last Admin: 10/30/24 08:39 Dose: 40 mg Sodium Chloride (0.9 % Sodium Chloride Flush 3 Ml Syringe) [facility] Last Admin: 10/30/24 08:39 Dose: 3 ml Home Medications ?Medication ?Instructions ?Recorded ?Confirmed ?Last Taken ?Type divalproex 250 mg tablet,delayed 500 mg PO BID 09/23/21 10/29/24 Unknown History release lamotrigine 25 mg tablet 200 mg PO BID 02/12/23 10/29/24 Unknown History B-complex with vitamin C 1 tab PO DAILY 03/06/24 10/29/24 Unknown History gabapentin 600 mg tablet 1,200 mg PO TID 03/06/24 10/29/24 Unknown History amlodipine 10 mg-benazepril 20 mg 1 cap PO DAILY 10/21/24 10/29/24 Unknown History capsule atorvastatin 10 mg tablet 10 mg PO DAILY 10/21/24 10/29/24 Unknown History omeprazole 40 mg capsule,delayed 40 mg PO DAILY@0630 10/21/24 10/29/24 Unknown History release meclizine 25 mg tablet 25 mg PO QID PRN dizziness 10/29/24 10/29/24 Unknown History Physical Exam Vital Signs: Vital Signs: Last Vital Signs Temp 97.2 F 10/30/24 11:38 Pulse 64 10/30/24 11:38 Resp 16 05/01/25 11:38 BP 146/62 H 10/30/24 11:38 Pulse Ox 99 10/30/24 11:38 O2 Del Method Room Air 10/30/24 11:38 BMI result Body Mass Index 35.3 Neuro: Other: She is alert and awake with normal spontaneity of speech fluency comprehension and affect. Face is symmetrical though there is significant bruise on the bridge of her nose and some black eye on the right side. [id number] testing is normal. Mild tremor is noted in outstretched hands. Deep tendon reflexes are 1+. Speech is normal. There was no obvious focal arm or leg weakness Results Labs 10/30/24 08:50 10/30/24 08:50 Labs: Short CBC 10/30/24 Range/Units 08:50 WBC 10.0 (4.8-10.8) X10*3/uL Hgb 13.4 (12.0-16.0) g/dl Hct 39.2 (37.0-47.0) % Plt Count 393 (160-400) X10*3/uL BMP 10/30/24 08:50 Sodium 142 Potassium 4.0 Chloride 104 Carbon Dioxide 28 BUN 12 Creatinine 0.69 Calcium 10.1 Liver Function 10/30/24 Range/Units 08:50 Total Bilirubin 0.4 (0.0-1.0) mg/dL AST 20 (5-31) U/L ALT 19 (0-31) U/L Alkaline Phosphatase 69 (39-117) U/L Albumin 4.3 (3.5-5.0) g/dL Head CT revealed mild diffuse cerebral atrophy for her age. Assessment and Plan (1) Encephalopathy: Qualifiers: Encephalopathy type: toxic metabolic Qualified Code(s): G92.8 - Other toxic encephalopathy Status: Acute 54 years old woman with underlying diagnosis of epilepsy though details were unclear at this time and I could not confirm this diagnosis. She was seeing a neurologist in [place]. She came to hospital because of overdose of lamotrigine as she ran out of Depakote prescription. She was educated and was advised to never take medicines other than the away there prescribed and not take additional doses like the way she did. Otherwise she fell better this morning and restart taking her regular doses and communicate with her neurologist for further guidance. Procedures Date of Service Date of Service: 10/30/24
--- NOTE | 2024-10-30 16:30 | P.DS_ITS ---
DS: Providers Provider Date of Service: 10/30/24 Date of admission: 10/29/24 12:42 Date of discharge: 10/30/24 Primary care physician: Whit Thakur CNP Consults: 10/29/24 17:23 Consult to Neurology Routine Consulting Provider: [facility] Reason for consultation: Lamotrigine OD after running out of depakote; seizure disorder Attending physician on discharge: Angie Carney Discharging clinician: Angie Carney DS: Diagnosis Discharge Diagnosis (1) Encephalopathy: Status: Acute DS: Summary Hospital Course Hospital Course: HPI:54-year-old female with a PMH significant for?HTN, HLD, seizure disorder, GERD, migraines, and mood disorder who presents to the ED after fall at home. Pt reports difficulties with short-term memory at baseline, though was particularly uncertain of events surrounding her fall this morning. Pt was treated in the ED with IVF and diazepam. Pt is admitted to the hospital for treatment and further evaluation of accidental lamotrigine overuse. Hospital course: 54-year-old female with a PMH significant for?HTN, HLD, seizure disorder, GERD, migraines, and mood disorder who presents to the ED after fall at home. Pt reports difficulties with short-term memory at baseline, though was particularly uncertain of events surrounding her fall this morning. Pt was treated in the ED with IVF and diazepam. Pt is admitted to the hospital for treatment and further evaluation of accidental lamotrigine overuse : Patient electrolytes fine, monitored on telemetry seems fine, EKGs also done which seems also NSR. Patient was cleared by poison control. With the above supportive management patient dizziness seems to be improved significantly and now she is at her baseline, Patient was seen by Neurology recommended to continue current regimen and follow-up with the neurologist. She was educated and was advised to never take medicines other than the away there prescribed and not take additional doses like the way she did. Otherwise she fell better this morning and restart taking her regular doses and communicate with her neurologist for further guidance. As Falls at home: CT of face showing nasal bone fractures Laceration to bridge of nose closed with glue in the ED-patient does not have deformity or bleeding ,neither significant pain. Can use outpatient p.r.n. Tylenol. Patient was strongly advised to follow-up with the ENT office . plan: Follow-up with lamotrigine level outpatient Strongly advised medication use as prescribed,follow-up with the neurologist outpatient. For nasal fractures follow-up with ENT outpatient. Considering nasal fractures patient was given Augmentin 875 p.o. b.i.d.(we have told them in detail that it is not absolutely necessary , patient wouldlike to use prophylax since has nasal fractures above). follow up with pcp. Pt recomended home Pt -patient will benefit from going home with vna/pt. Patient and her sister both were informed in detail that-referral to the [facility] sent by case management and then case management will follow up tomorrow on that. It might takes few days to get arranged above VNA/PT. Patient and her sister they both understand and still want to go home. Above management discussed with the patient and her sister in detail length. Staff present during conversation, started and spent 40 minute. Time Attestation Total time managing care of this patient today: 40 mintues. Discharge Coordination Time (in mins): 40 minute Quality: Safe Use of Opioids Does Pt have an Active Cancer Diagnosis on the Problem List?: No Quality: Stroke Does the patient have a stroke diagnosis?: No Physical Exam Vital Signs: Vital Signs: Last Vital Signs Temp 97.2 F 10/30/24 11:38 Pulse 64 10/30/24 11:38 Resp 16 10/30/24 11:38 BP 146/62 H 10/30/24 11:38 Pulse Ox 99 10/30/24 11:38 O2 Del Method Room Air 10/30/24 11:38 BMI result Body Mass Index 35.3 Appearance: Alert.? Oriented X3.? ENT: Nasal brusing , no deformity or bleeding. cvs: rrr, [id number] . res: clear to auscultation ,no rhonchii or wheezing abd: no rebound or guarding ,nt, bs present. ext pulses present , no cyanosis. neuro: axo3 , nonfocal. DS: Data Data Completed and Pending Labs on day of discharge: Laboratory Results - last 24 hr 10/30/24 08:50 WBC 10.0 RBC 4.20 Hgb 13.4 Hct 39.2 MCV 93.3 MCH 31.9 MCHC 34.2 RDW 13.2 Plt Count 393 MPV 9.3 L Absolute Nucleated RBC 0.000 Nucleated RBC % (auto) 0.0 Sodium 142 Potassium 4.0 Chloride 104 Carbon Dioxide 28 Anion Gap 14 BUN 12 Creatinine 0.69 Estim Creat Clear Calc 102.0 Estimated GFR > 60 Random Glucose 87 Calcium 10.1 Total Bilirubin 0.4 AST 20 ALT 19 Alkaline Phosphatase 69 Total Protein 6.7 Albumin 4.3 Imaging Chest x-ray: Radiologist's impression: ITS Impressions Head CT 10/29/24 08:00 IMPRESSION: No acute fracture, bony calvarium. No acute intracranial hemorrhage. Traumatic nasal bones deformities. Global cerebral atrophy. Electronically signed by: Fabian Calle MD 10/29/2024 09:56 AM EDT RP Face CT 10/29/24 08:08 IMPRESSION: Nasal bone fractures and has associated soft tissue contusion. Electronically signed by: Fabian Calle MD 10/29/2024 10:02 AM EDT RP Cervical Spine CT 10/29/24 09:12 IMPRESSION: Multilevel cervical spondylosis without acute fracture or trauma-related listhesis. Fleischner guidelines were followed. Electronically signed by: Fabian Calle MD 10/29/2024 10:20 AM EDT RP Xray right hip: Impression: No acute bony abnormality Discharge Plan Discharge Anticipated Discharge Date/Time: 10/30/24 16:16 Patient Disposition: Home Health Service Discharge Diagnosis: nasal fractures , dizziness Referrals: [facility] [Outside] - 1 Week Whit Thakur CNP [Primary Care Provider] - 1 Week Discharge Medications: New amoxicillin-pot clavulanate 875-125 mg tablet 1 tab PO BID Qty: 10 0RF Continued (DME) walker Misc See Rx Instructions .ROUTE .MEDSUPPLY Qty: 1 0RF Rx Instructions: Folding front wheeled walker propranolol 40 mg tablet 40 mg PO BID 30 Days Qty: 60 1RF atorvastatin 10 mg tablet 10 mg PO DAILY omeprazole 40 mg capsule,delayed release(DR/EC) 40 mg PO DAILY@0630 amlodipine-benazepril 10-20 mg capsule 1 cap PO DAILY meclizine 25 mg tablet 25 mg PO QID PRN (Reason: dizziness) ondansetron 4 mg tablet,disintegrating 4 mg PO TID PRN (Reason: nausea and vomiting) 5 Days Qty: 10 0RF B-complex with vitamin C Tablet 1 tab PO DAILY divalproex 250 mg tablet,delayed release (DR/EC) 500 mg PO BID lamotrigine 25 mg tablet 200 mg PO BID gabapentin 600 mg tablet 1,200 mg PO TID Discharge Orders: Discharge Order (Routine); Ordered 10/30/24 Ordered By: Angie Carney Diet: Advance to usual diet Activity on Discharge: As tolerated Stand Alone Forms: Patient Portal Discharge page Print Language: Chinese Care Plan Goals: 54-year-old female with a PMH significant for?HTN, HLD, seizure disorder, GERD, migraines, and mood disorder who presents to the ED after fall at home. Pt reports difficulties with short-term memory at baseline, though was particularly uncertain of events surrounding her fall this morning. Pt was treated in the ED with IVF and diazepam. Pt is admitted to the hospital for treatment and further evaluation of accidental lamotrigine overuse : Patient electrolytes fine, monitored on telemetry seems fine, EKGs also done which seems also NSR. Patient was cleared by poison control. Patient was seen by Neurology recommended to continue current regimen and follow-up with the neurologist. She was educated and was advised to never take medicines other than the away there prescribed and not take additional doses like the way she did. Otherwise she fell better this morning and restart taking her regular doses and communicate with her neurologist for further guidance. Falls at home: CT of face showing nasal bone fractures Laceration to bridge of nose closed with glue in the ED-patient does not have deformity or bleeding ,neither significant pain. Can use outpatient p.r.n. Tylenol. Patient was strongly advised to follow-up with the ENT office . Health Concerns: Strongly advised and informed to use her medications appropriately, follow-up with the neurologist outpatient. For nasal fractures follow-up with ENT outpatient . follow up with pcp. Pt receomended home Pt -patient will benefit from going home with vna/pt. Above management discussed with the patient and her sister in detail length. Plan of Treatment: as above. Assessment: As above. Discharge Date/Time: 10/30/24 20:43
--- NOTE | 2024-10-30 16:33 | MHC.CM.PN ---
Pt. has been medically cleared to [place], she will go home via family transport and have home care services. Referral into [facility], CM will follow up tomorrow to make sure they will provide services.
[2024-10-30] MEDS: Butalb/Acetamin/Caff 50/325/40 TABLET 1 TAB PO (16:45)
--- NOTE | 2024-10-30 19:10 | W.MHC.F2F ---
Service Date Service Date: 10/30/24 Encounter Date of encounter: 10/30/24 Encounter: fall ,nasal fx, dizziness Reasons for Services Signs and symptoms assessed: Any new dizziness or weakness or numbness or fever or chills or new symptoms Reason for care home: medication management, medication treatment and teach disease management Reason for physical therapy: home safety and mobility, therapeutic exercises, restore joint function, gait/transfer training, assess need for DME, ADL training, energy conservation and other MD Overseeing Care: Whit Thakur Homebound: Leaving the home is medically contraindicated at this time without the asist of a device and/or another person due th the listed conditions above and below. Reason homebound: weakness related to hospital stay Homebound supporting statement: Patient is generalised weak post hospitlisation and need help with going to appointments and labs draws, disease management as well as PT. Certification: Based on the above findings, I certify that this patient is confined to the home and needs intermittent care home care, physical therapy and/or speech therapy, or continues to need occupational therapy. The patient is under my care, and I have initiated the establishment of the plan of care. The patient will be followed by a physician who will periodically review the plan of care. Time Spent With Patient Time: Total time managing care of this patient today ____ minutes.
[2024-10-30 19:35] VITALS: BP 128/66; PULSE 66; RESP 18; TEMP 37; O2SAT 96
[2024-10-30] MEDS: Amoxicillin/Potassium Clav 875 MG TABLET PO (19:59)
[2024-10-30] MEDS: lamoTRIgine 100 MG TABLET 200 MG PO (20:01)
[2024-10-30] MEDS: Enoxaparin Sodium 40 MG/0.4 ML SYRINGE SUBCUT (20:02)
[2024-11-01 17:03] LABS: Lamotrigine Lamictal 24.2 mcg/mL (2.5-15.0)
== END 2024-10-30 20:43 | disposition home health service (06) | DRG 917 ==
LOC: HO.ED 12:21 → HO.EDOVER 12:47 → HO.IMC 19:32
PROVIDERS: Admitting Provider Student in an Organized Health Care Education/Training Program; Emergency Provider Emergency Medicine; PCP Nurse Practitioner Family; Visit Provider Internal Medicine
DX: T42.6X1A Poisoning by other antiepileptic and sedative-hypnotic drugs, accidental (unintentional), initial encounter (principal); G92.8 Other toxic encephalopathy; S01.21XA Laceration without foreign body of nose, initial encounter; W19.XXXA Unspecified fall, initial encounter; T42.6X6A Underdosing of other antiepileptic and sedative-hypnotic drugs, initial encounter; I10 Essential (primary) hypertension; G40.909 Epilepsy, unspecified, not intractable, without status epilepticus; Z87.891 Personal history of nicotine dependence; Z79.899 Other long term (current) drug therapy
CPT/HCPCS: 36415; 70450; 70486; 72125; 73502; 80053; 80143; 80164; 80175; 80179; 80307; 82550; 83735; 84100; 84484; 85025; 85027; 93005; 97162; 99285; J1650; J3360

== ENCOUNTER → 2024-10-29 08:00 | Outpatient (BNV) | payer OTHER, SELFPAY | PROVIDERS: Emergency Provider Emergency Medicine; PCP Nurse Practitioner Family; Visit Provider Radiology Diagnostic Radiology | DX: M25.551 Pain in right hip (principal); W19.XXXA Unspecified fall, initial encounter; G31.9 Degenerative disease of nervous system, unspecified; S02.2XXA Fracture of nasal bones, initial encounter for closed fracture; S00.33XA Contusion of nose, initial encounter; M47.892 Other spondylosis, cervical region | CPT/HCPCS: 70450; 70486; 72125; 73502 ==

== ENCOUNTER → 2024-10-29 08:15 | Outpatient (BNV) | payer OTHER, SELFPAY | PROVIDERS: Admitting Provider Student in an Organized Health Care Education/Training Program; Emergency Provider Emergency Medicine; PCP Nurse Practitioner Family; Visit Provider Internal Medicine Cardiovascular Disease | DX: T50.901A Poisoning by unspecified drugs, medicaments and biological substances, accidental (unintentional), initial encounter (principal) | CPT/HCPCS: 93010 ==

== ENCOUNTER → 2024-10-29 12:42 | Outpatient (BNV) | payer OTHER, SELFPAY | PROVIDERS: Admitting Provider Student in an Organized Health Care Education/Training Program; Emergency Provider Emergency Medicine; PCP Nurse Practitioner Family; Visit Provider Psychiatry & Neurology Neurology | DX: G92.8 Other toxic encephalopathy (principal) | CPT/HCPCS: 99222 ==

== ENCOUNTER → 2024-10-29 12:42 | Outpatient (BNV) | payer OTHER, SELFPAY | PROVIDERS: Admitting Provider Student in an Organized Health Care Education/Training Program; Emergency Provider Emergency Medicine; PCP Nurse Practitioner Family; Visit Provider Student in an Organized Health Care Education/Training Program | DX: S01.21XA Laceration without foreign body of nose, initial encounter (principal); T42.6X1A Poisoning by other antiepileptic and sedative-hypnotic drugs, accidental (unintentional), initial encounter | CPT/HCPCS: 99223; 99239; G0180 ==

== ENCOUNTER 2024-11-07 09:15 | Outpatient (REF) | payer OTHER, SELFPAY ==
--- OUTSIDE RECORDS SUMMARY | 2024-11-07 09:30 | XMS_ITS | Encounter Summary ---
Author Organization [facility] Address [address] [place] [address] Care Team Providers Care Digital Marketer Name Role Phone Whit Thakur Primary Care Provider [phone] Reason for Visit * Reason Onset Date Comments Referral Request 08/23/2021 Encounter Details Date Type Department Care Team (Late st Contact Info) Description 08/23/2021 Telephone [facility] Central Scheduling Department [address] [place] [id number] Telephone Intake, Staff Referral Request Social History [...] referral to a specialist. I tried front end developer javascript html css but was unable to get ahold of anyone. Please reach out to PT with any information. documented in this encounter Plan of Treatment Upcoming Encounters Date Type Department Care Team (Late st Contact Info) Description 12/09/2024 11:00 AM EDT Office Visit [facility] [address] [place] [address] [phone] Keith Conrad MD [address] [place] [phone] documented as of this encounter Visit Diagnoses Not on filedocumented in this encounter Care Teams Digital Marketer Relationship Specialty Start Date End Date Whit Thakur [address] [place] [address] PCP - General Family Medicine 10/06/24 documented as of this encounter
--- OUTSIDE RECORDS SUMMARY | 2024-11-07 09:30 | XMS_ITS | Encounter Summary ---
Author Organization [facility] Address [address] [place] [address] Care Team Providers Care Agile Tester Name Role Phone Whit Thakur Primary Care Provider [phone] Reason for Visit * Reason Onset Date Comments Send message to Dr. Conrad 04/04/2021 Pt of Conrad EEG home device not working 04/04/2021 Encounter Details Date Type Department Care Team (Late st Contact Info) Description 04/04/2021 Telephone [facility] [address] [place] [phone] Telephone Intake, Staff Send message to [...] technical difficulty with the EEG device the [facility] took it back. The pt neverhad the EEG reading started before the device issue. She would like a new device. Can we have a device sent to her in the mail? #[phone] * Telephone Encounter - Siomara Meghan - [...] be reached at her home number at [phone]. Thank you documented in this encounter Plan of Treatment Upcoming Encounters Date Type Department Care Team (Late st Contact Info) Description 12/09/2024 11:00 AM EDT Office Visit [facility] [address] [place] [id number] Keith Conrad MD [address] [place] [id number] documented as of this encounter Visit Diagnoses Not on filedocumented in this encounter Care Teams Agile Tester Relationship Specialty Start Date End Date Whit Thakur [address] [place] [address] PCP - General Family Medicine 10/06/24 documented as of this encounter
--- OUTSIDE RECORDS SUMMARY | 2024-11-07 09:30 | XMS_ITS | Encounter Summary ---
Author Organization [facility] Address [address] [place] [address] Care Team Providers Care Vamp Marker Name Role Phone Whit Thakur Primary Care Provider [phone] Encounter Details Date Type Department Care Team (Late st Contact Info) Description 01/11/2021 myChart Message [facility] [address] [place] [address] Iván Clinton MD [address] [place] [address] Test Results Question Social History Tobacco Use [...] Description 12/09/2024 11:00 AM EDT Office Visit [facility] [address] [place], [place] [phone] Keith Conrad MD [address] [place], [place] [phone] documented as of this encounter Visit Diagnoses Not on filedocumented in this encounter Care Teams Vamp Marker Relationship Specialty Start Date End Date Whit Thakur [address] [place] [address] PCP - General Family Medicine 10/06/24 documented as of this encounter
--- OUTSIDE RECORDS SUMMARY | 2024-11-07 09:30 | XMS_ITS | Encounter Summary ---
Author Organization [facility] Address [address] [place] [address] Care Team Providers Care Manager Pediatric Name Role Phone Whit Thkaur Primary Care Provider [phone] Encounter Details Date Type Department Care Team (Late st Contact Info) Description 08/02/2022 Orders Only [facility] [address] [place] [address] Shantel Cardoza MD [address] [place], [place] [phone] Headache syndrome; Transient neurological symptoms Social History [...] Description 12/09/2024 11:00 AM EDT Office Visit [facility] [address] [place], [place] [phone] Keith Conrad MD [address] [place] [address] documented as of this encounter Results * Due to [place] state law, this organization might not be sharing negative HIV tests. * Ambulatory EEG (08/02/2022 12:38 PM EST) Narrative Shantel Cardoza MD - 08/02/2022 12:38 PM EST Shantel Cardoza MD ? 08/02/2022 ??2:32 PM [facility] 3-DAY AMBULATORY CONTINUOUS VIDEO-EEG REPORT Patient: [...] and placement protocol in person by an dialysis equipment technician for the purposes of recording long-term video [...] and referential electrode montages. The patient or bondactor machine operator was instructed to keep an [...] discharges or ictal build up. Single Channel Chain Mortiser Operator: Rhythm: regular Rate (typical): ~ 66 bpm [...] symptoms documented in this encounter Care Teams Manager Pediatric Relationship Specialty Start Date End Date Whit Thakur [address] [place] [address] PCP - General Family Medicine 10/06/24 documented as of this encounter
--- OUTSIDE RECORDS SUMMARY | 2024-11-07 09:30 | XMS_ITS | Encounter Summary ---
Author Organization [facility] Address [address] [place] [address] Care Team Providers Care Form Presser Name Role Phone Whit Thakur Primary Care Provider [phone] Encounter Details Date Type Department Care Team (Late st Contact Info) Description 03/02/2021 Telephone [facility] [address] [place] [address] [phone] Telephone Intake, Staff Social History Tobacco Use [...] Description 12/09/2024 11:00 AM EDT Office Visit [facility] [address] [place] [address] Keith Conrad MD [address] [place] [address] documented as of this encounter Visit Diagnoses Not on filedocumented in this encounter Care Teams Form Presser Relationship Specialty Start Date End Date Whit Thakur [address] [place] [address] PCP - General Family Medicine 10/06/24 documented as of this encounter
--- OUTSIDE RECORDS SUMMARY | 2024-11-07 09:30 | XMS_ITS | Encounter Summary ---
Author Organization [facility] Address [address] [place] [address] Care Team Providers Care Bridge Operator Name Role Phone Whit Thakur Primary Care Provider Encounter Details Date Type Department Care Team (Late st Contact Info) Description 07/19/2021 myChart Message [facility] [address] [place] [address] Jackie Ritchie [place] Medication question Social History [...] [facility] [address] [place] [address] Keith Conrad MD [address] [place] [address] documented as of this encounter Visit Diagnoses Not on filedocumented in this encounter Care Teams Bridge Operator Relationship Specialty Start Date End Date Whit Thakur [address] [place] [address] PCP - General Family Medicine 10/06/24 documented as of this encounter
--- OUTSIDE RECORDS SUMMARY | 2024-11-07 09:30 | XMS_ITS | Encounter Summary ---
Author Organization [facility] Address [address] [place] [address] Care Team Providers Care General Road Production Manager Name Role Phone Whit Thakur Primary Care Provider [phone] Reason for Visit * Reason Onset Date Comments referral order request 11/05/2024 Encounter Details Date Type Department Care Team (Late st Contact Info) Description 11/05/2024 Telephone [facility] [address] [place] [address] Telephone Intake, Staff referral order request Social History Tobacco Use Types Packs/Day Years [...] Telephone Encounter - Keith Conrad MD - 11/06/2024 11:12 AM EDT Please let her know: If she wants diagnostic testing for Ottawa's disease, I believe it needs to be a through a [facility]. I cannot simply order the testing as an epileptologist. I do not havethe training or experience to confidently act on the results of the testing, so it is not appropriate for me to order this. I think the movement group here at [facility] is a partner site with the [facility] in [place]. I can send a referral for evaluation to the movement disorders group here if she is interested. I'll also reach out to the movement group to see how specifically they might be able to help. * Telephone Encounter - Estefanía Nicole - 11/05/2024 3:58 PM EDT NEURO TRIAGE CALL PATIENT: Kenya Crespo BEST CALL BACK PHONE NUMBER: [phone] PATIENT'S NEUROLOGIST: Dr. Conrad REASON FOR CALL: Patient calling requesting a referral order for Nay's Disease testing . Shewould like to have it done at [facility] in [place]. They will only do with neurologist approval the patient stated. Please advise thank you. IF PATIENT IS EXHIBITING SYMPTOMS ARE THESE NEW SYMPTOMS? UPCOMING APPOINTMENTS: Future Appointments Date Time Provider Department Center 12/09/2024 11:00 AM Keith Conrad MD [facility] Neuro BOYD AR Message will be sent to [facility] pool or appropriate nurse navigator Neurovascular/Stroke: Rowan Knott RN Epilepsy/Seizure: Sharon Bay RN Neuromuscular/Movement: Court Colon RN Cognitive: Iván Shaffer LPN documented in this encounter Plan of Treatment Upcoming Encounters Date Type Department Care Team (Late st Contact Info) Description 12/09/2024 11:00 AM EDT Office Visit [facility] [address] [place] [address] Keith Conrad MD [address] [place] [address] documented as of this encounter Visit Diagnoses Not on filedocumented in this encounter Care Teams General Road Production Manager Relationship Specialty Start Date End Date Whit Thakur [address] [place] [address] PCP - General Family Medicine 10/06/24 documented as of this encounter
--- OUTSIDE RECORDS SUMMARY | 2024-11-07 09:30 | XMS_ITS | Clinical Summary ---
Author Organization [facility] Address [address] [place] [address] Care Team Providers Care Plant Maintenance Engineer Name Role Phone Whit Thakur Primary Care Provider [phone] Allergies Active Allergy Reactions Criticality Noted Date [...] different from the original. PT-1 Request Number [id number] is Approved, 2 visits per month for [...] appointments with the headache/migraine providers here at [facility]. She has since found a new provider for headache/migraine in the [facility] area who will be doing her [...] me now that I have returned to [facility]. Regarding the episodes that she calls [...] evaluated at a genetics center/Nay center in [place], but those records are not available. Plans to be evaluated at genetics clinic at [facility]. - Continue Lamotrigine 200 mg twice daily [...] patient would prefer somewhere closer to home ([place]) - Ambulatory EEG pending - Seizure/Fall precautions at all times - Seizure and headache diary recommended - Genetic testing consultation scheduled. (+FH of HD) - Follow up in 3-4 months Resolved Problems Problem Noted Date Diagnosed Date Resolved Date Seizure 12/17/2020 12/13/2023 Encounters Date Type Department Care Team Description 11/06/2024 Telephone [facility] [address] [place] [address] Telephone Intake, Staff PAC Referral Request (Pt called in requesting a referral to [facility] to test for Huntingtons Disease specifically from [facility]) 11/05/2024 Telephone [facility] [address] [place] [address] Telephone Intake, Staff referral order request 10/26/2024 Refill [facility] [address] [place] [address] Keith Conrad MD Seizure-like activity (HCC); Intractable chronic migraine without aura and without status migrainosus 10/24/2024 3:00 PM EDT Office Visit [facility] [address] [place] [address] Ricky Devries NP Seizure-like activity (HCC) (Primary Dx) 09/24/2024 Telephone [facility] [address] [place] [address] Telephone Intake, Staff PAC Patient Request Call Back; PAC Appt Request - New 08/13/2024 Refill [facility] [address] [place] [address] Oneyda Delcid [place] Seizure-like activity; Intractable chronic migraine without aura and without status migrainosus from Last 3 Months Family History Medical History Relation Name Comments COPD Father Sharp's disease Father Brain Aneurysm Maternal Grandmother Dementia [...] Description 12/09/2024 11:00 AM EDT Office Visit [facility] [address] [place] [address] Keith Conrad MD [address] [place] [address] Health Maintenance Due Date Last Done Comments [...] 11/03/2023, 07/14/2023 Medical Devices Implanted Type Area Vat Packer Device Identifier Shelf Expiration Date Model / Serial / Lot Device Closure Vascular 5fr Vascade - [id number] Implanted:Qty: 1 on 11/30/2022 at [facility] Implant [employer] E[employer] 08/22/2024 700-500D X- [id number] / / [id number] Procedures * Due to [place] [employer] law, this organization might not be sharing negative HIV tests. Procedure Name Priority Date/Time Associated Diagnosis Comments COMPREHENSIVE METABOLIC PANEL Routine 12/13/2023 2:02 PM EDT Seizure-like activity from Last 3 Months or Most Recently Relevant to Health Maintenance Results * Due to [place] [employer] law, this organization might not be sharing negative HIV tests. * (ABNORMAL) Comprehensive Metabolic Panel (12/13/2023 2:02 PM EDT) NA 139 135 - 145 mmol/L 12/13/2023 3:29 PM EDT [facility] K 4.6 3.5 - 5.3 mmol/L 12/13/2023 3:29 PM EDT [facility] Cl 100 98 - 107 mmol/L 12/13/2023 3:29 PM EDT [facility] CO2 28 24 - 32 mmol/L 12/13/2023 3:29 PM EDT [facility] Anion Gap 11 5 - 15 12/13/2023 3:29 PM EDT [facility] Glucose 112(H) 65 - 99 mg/dL 12/13/2023 3:29 PM EDT [facility] Creatinine 0.68 0.50 - 1.20 mg/dL 12/13/2023 3:29 PM EDT [facility] Calcium 10.5 8.6 - 10.5 mg/dL 12/13/2023 3:29 PM EDT [facility] Total Protein 6.9 6.0 - 8.0 g/dL 12/13/2023 3:29 PM EDT [facility] Albumin 4.8 3.5 - 5.2 g/dL 12/13/2023 3:29 PM EDT [facility] Bilirubin, Total 0.2 0.2 - 1.2 mg/dL 12/13/2023 3:29 PM EDT [facility] Alkaline Phosphatase 71 35 - 129 U/L 12/13/2023 3:29 PM EDT [facility] AST 16 10 - 40 U/L 12/13/2023 3:29 PM EDT [facility] ALT 22 10 - 40 U/L 12/13/2023 3:29 PM EDT [facility] BUN 10 7 - 23 mg/dL 12/13/2023 3:29 PM EDT [facility] eGFR >90 >=60 mL/min/1. 73m2 12/13/2023 3:29 PM EDT [facility] Comment: The estimated glomerular [...] - 4.2 g/dL 12/13/2023 3:29 PM EDT [facility] A/G Ratio 2.3 1.5 - 3.0 12/13/2023 3:29 PM EDT [facility] Blood Structure of peripheral vein / Unknown Venipuncture / Unknown 12/13/2023 2:02 PM EDT 12/13/2023 2:31 PM EDT us Keith Conrad MD LAB BLOOD ORDERABLES Final Resul t [facility] [address] [place] [address], from Last 3 Months or Most Recently Relevant to Health Maintenance Insurance [facility] [employer] [place]E STODDARD [id number] Advance Directives Documents on File Type Date Recorded Patient Adjuster Arbitrator Expl anation Health Care Proxy 11/24/2022 1:13 PM HEALTH CARE PROXY SCANNED IN Care Teams Plant Maintenance Engineer Relationship Specialty Start Date End Date Whit Thakur [address] [place] [address] PCP - General Family Medicine 10/06/24
--- OUTSIDE RECORDS SUMMARY | 2024-11-07 09:30 | XMS_ITS | Encounter Summary ---
Author Organization [facility] Address [address] [place] [address] Care Team Providers Care Eddy Current Inspector Name Role Phone Whit Thakur Primary Care Provider [phone] Encounter Details Date Type Department Care Team (Late st Contact Info) Description 03/22/2022 Telephone [facility] [address] [place] [address] [phone] Telephone Intake, Staff Social History Tobacco Use [...] - 03/27/2022 10:38 AM EDT PT-1 Number: [id number] Neurology Clinic - EXP: 03/23/2023 Treatment Details [facility] [address] [place], [place] [phone] Keith Conrad MD [address] [place] [address] documented as of this encounter Visit Diagnoses Not on filedocumented in this encounter Care Teams Eddy Current Inspector Relationship Specialty Start Date End Date Whit Thakur [address] [place] [address] PCP - General Family Medicine 10/06/24 documented as of this encounter
--- OUTSIDE RECORDS SUMMARY | 2024-11-07 09:30 | XMS_ITS | Encounter Summary ---
Author Organization [facility] Address [address] [place] [address] Care Team Providers Care Senior Project Manager Name Role Phone Whit Thakur Primary Care Provider [phone] Encounter Details Date Type Department Care Team (Late st Contact Info) Description 03/01/2021 Telephone [facility] [address] [place] [address] Telephone Intake, Staff Social History Tobacco [...] Description 12/09/2024 11:00 AM EDT Office Visit [facility] [address] [place] [address] Keith Conrad MD [address] [place] [address] documented as of this encounter Visit Diagnoses Not on filedocumented in this encounter Care Teams Senior Project Manager Relationship Specialty Start Date End Date Whit Thakur [address] [place] [address] PCP - General Family Medicine 10/06/24 documented as of this encounter
--- OUTSIDE RECORDS SUMMARY | 2024-11-07 09:30 | XMS_ITS | Referral Summary ---
Author Organization [facility] Address [address] [place] [address] Care Team Providers Care Dock Coordinator Name Role Phone Whit Thakur Primary Care Provider [phone] Encounters Date Type Department Care Team Description 11/06/2024 Telephone [facility] [address] [place] [address] Telephone Intake, Staff PAC Referral Request (Pt called in requesting a referral to [facility] to test for Huntingtons Disease specifically from [facility]) 11/05/2024 Telephone [facility] [address] [place] [address] Telephone Intake, Staff referral order request 10/26/2024 Refill [facility] [address] [place] [address] Keith Conrad MD Seizure-like activity (HCC); Intractable chronic migraine without aura and without status migrainosus 10/24/2024 3:00 PM EDT Office Visit [facility] [address] [address] Ricky Devries NP Seizure-like activity (HCC) (Primary Dx) 09/24/2024 Telephone [facility] [address] [place] [address] Telephone Intake, Staff PAC Patient Request Call Back; PAC Appt Request - New 08/13/2024 Refill [facility] [address] [place] [address] Oneyda Delcid [place] Seizure-like activity; Intractable chronic [...] different from the original. PT-1 Request Number [id number] is Approved, 2 visits per month for [...] appointments with the headache/migraine providers here at [facility]. She has since found a new [...] me now that I have returned to [facility]. Regarding the episodes that she calls [...] evaluated at a genetics center/Nay center in [place], but those records are not available. Plans [...] patient would prefer somewhere closer to home ([place]) - Ambulatory EEG pending - Seizure/Fall precautions [...] Description 12/09/2024 11:00 AM EDT Office Visit [facility] [address] [place] [address] Keith Conrad MD [address] [place] [address] Medical Devices Implanted Type Area Cafeteria Or Lunchroom Checker Device Identifier Shelf Expiration Date Model / Serial / Lot Device Closure Vascular 5fr Vascade - [id number] Implanted:Qty: 1 on 11/30/2022 at [facility] Implant [employer] 08/22/2024 700-500D X- [id number] / / [id number] Procedures * Due to [place] state law, this organization might not be sharing negative HIV tests. Procedure Name Priority Date/Time Associated Diagnosis Comments COMPREHENSIVE METABOLIC PANEL Routine 12/13/2023 2:02 PM EDT Seizure-like activity from Last 3 Months or Most Recently Relevant to Health Maintenance Results * Due to [place] state law, this organization might not be sharing negative HIV tests. * (ABNORMAL) Comprehensive Metabolic Panel (12/13/2023 2:02 PM EDT) NA 139 135 - 145 mmol/L 12/13/2023 3:29 PM EDT [email or web address] K 4.6 3.5 - 5.3 mmol/L 12/13/2023 3:29 PM EDT [email or web address] Cl 100 98 - 107 mmol/L 12/13/2023 3:29 PM EDT [email or web address] CO2 28 24 - 32 mmol/L 12/13/2023 3:29 PM EDT [email or web address] Anion Gap 11 5 - 15 12/13/2023 3:29 PM EDT [email or web address] Glucose 112(H) 65 - 99 mg/dL 12/13/2023 3:29 PM EDT [facility] Creatinine 0.68 0.50 - 1.20 mg/dL 12/13/2023 3:29 PM EDT [facility] Calcium 10.5 8.6 - 10.5 mg/dL 12/13/2023 3:29 PM EDT [email or web address] Total Protein 6.9 6.0 - 8.0 g/dL 12/13/2023 3:29 PM EDT [email or web address] Albumin 4.8 3.5 - 5.2 g/dL 12/13/2023 3:29 PM EDT [email or web address] Bilirubin, Total 0.2 0.2 - 1.2 mg/dL 12/13/2023 3:29 PM EDT [email or web address] Alkaline Phosphatase 71 35 - 129 U/L 12/13/2023 3:29 PM EDT [email or web address] AST 16 10 - 40 U/L 12/13/2023 3:29 PM EDT [email or web address] ALT 22 10 - 40 U/L 12/13/2023 3:29 PM EDT [facility] BUN 10 7 - 23 mg/dL 12/13/2023 3:29 PM EDT [facility] eGFR >90 >=60 mL/min/1. 73m2 12/13/2023 3:29 PM EDT [facility] Comment: The estimated glomerular [...] - 4.2 g/dL 12/13/2023 3:29 PM EDT [email or web address] A/G Ratio 2.3 1.5 - 3.0 12/13/2023 3:29 PM EDT [facility] Blood Structure of peripheral vein / Unknown Venipuncture / Unknown 12/13/2023 2:02 PM EDT 12/13/2023 2:31 PM EDT us Keith Conrad MD LAB BLOOD ORDERABLES Final Resul t [facility] [address] [place] [address], from Last 3 Months or Most Recently Relevant to Health Maintenance Insurance NOE STODDARD [id number] Advance Directives Documents on File Type Date Recorded Patient Tariff Inspector Expl anation Health Care Proxy 11/24/2022 1:13 PM HEALTH CARE PROXY SCANNED IN Care Teams Dock Coordinator Relationship Specialty Start Date End Date Whit Thakur [address] [place], [place] [phone] PCP - General Family Medicine 10/06/24
--- OUTSIDE RECORDS SUMMARY | 2024-11-07 09:30 | XMS_ITS | Encounter Summary ---
Author Organization [facility] Address [address] [place] [address] Care Team Providers Care International Marketing Coordinator Name Role Phone Physician, No Pcp Primary Care Provider Unavaila ble Reason for Visit * Reason Comments Pre-operative Clearance Knee surgery at [facility] Encounter Details Date Type Department Care Team ([facility] st Contact Info) Description 11/03/2024 9:00 AM EDT Office Visit Pulmonolgy - [place] [address] [place] [phone] Sha Diamond MD [address] [facility] [address] [place] [address] Pulmonary nodule (Primary Dx); Preop respiratory exam Social History Tobacco Use Types Packs/Day Years [...] on file documented as of this encounter Last Filed Vital Signs Vital Sign Reading Time Taken Comments Blood Pressure 118/60 11/03/2024 8:56 AM EDT Pulse 69 11/03/2024 8:56 AM EDT Temperature 36.4 ??C (97.6 ??F) 11/03/2024 8:56 AM ED T Respiratory Rate 16 11/03/2024 8:56 AM EDT Oxygen Saturation 96% 11/03/2024 8:56 AM EDT Inhaled Oxygen Concentration - - Weight 94 kg (207 lb 3.2 oz) 11/03/2024 8:56 AM EDT Height 162.6 cm (5' 4 ) 11/03/2024 8:56 AM EDT Body Mass Index 35.57 11/03/2024 8:56 AM EDT documented in this encounter Progress Notes * Sha Diamond MD - 11/03/2024 9:00 AM EDT ADULT PULMONARY CONSULT CHIEF COMPLAINT or REASON FOR CONSULTATION: Pre-operative Clearance (Knee surgery 11/17 at [facility]) HISTORY OF PRESENT ILLNESS: Kenya Crespo is a 54 y.o. years old, female with a history of seizure activity. Had ct for nonspecific pain. There was a 3 mm nodule in left lower lobe of lung. She has episodic dyspnea and chestdiscomfort also. Denies any fever or angina. The patient is not a current smoker and has no documented lung disease. She has strong family history of cancer involving both parents and multiple siblings. She had us biopsy of thyroid- no fever or chronic cough. The pt will be going for left knee replacement. Here for pulm clearance. The surgery will be done by Dr Vega at [facility] ALLERGIES: Allergies Allergen Reactions Baclofen Unknown hallucinations Codeine Nausea And Vomiting Latex ACTIVE MEDICATIONS: Outpatient Medications Marked as Taking for the 11/03/24 encounter (Office Visit) with Sha Diamond MD Medication Sig Dispense Refill amLODIPine-benazepril (LOTREL) 10-20 mg per capsule TAKE 1 CAPSULE BY MOUTH EVERY DAY atorvastatin (LIPITOR) 10 mg tablet Take 1 Tablet by mouth daily. cephalexin (KEFTAB) 500 mg tablet Take 1 Tablet by mouth 4 times daily. divalproex (DEPAKOTE) [address] tablet Take 1 Tablet by mouth 2 times daily. Take 2 pills twice a Day gabapentin (NEURONTIN) 600 mg tablet Take 2 Tablets by mouth 3 times daily. ketoconazole (NIZORAL) 2 % cream Apply topically 2 times daily. lamoTRIgine (LaMICtal) 200 mg tablet Take 1 Tablet by mouth 2 times daily. meclizine (ANTIVERT) 25 mg tablet Take 1 Tablet by mouth 3 times daily as needed for Other (nausea and vertigo). omeprazole (PriLOSEC) [address] capsule Take 1 Capsule by mouth daily. propranoloL (INDERAL) 40 mg tablet Take 1 Tablet by mouth 2 times daily. TRIAMCINOLONE-NIACINAMIDE TOP NIACINAMIDE-TRIAMCINOLONE ACET 4-0.1 % CREAM Apply topically. PROVIDER ATTESTS THAT THE MEDICATION LIST WAS OBTAINED, REVIEWED AND UPDATED. REVIEW OF SYSTEMS: GENERAL: No wt lost or fever ENT: +snoring Eye: RESPIRATORY: no cough, wheezing and dyspnea CARDIOVASCULAR: No chest pain, leg swelling or palpitations GI: No abdominal discomfort, MUSCULOSKELETAL: +backpain, +knee pain HEMATOLOGY/LYMPHOLOGY No prolonged bleeding, easy bruisability ENDOCRINE: no DM NEURO: No focal weakness, last seizure 12 mths ago : Psych: no depression PAST MEDICAL HISTORY: Patient Active Problem List Diagnosis Date Noted Other hyperlipidemia 12/03/2023 Migraine 09/04/2023 Venous insufficiency 09/04/2023 Carpal tunnel syndrome 04/25/2023 Chronic headache 04/25/2023 GERD (gastroesophageal reflux disease) 04/25/2023 HTN (hypertension) 04/25/2023 Memory changes 04/25/2023 Mixed incontinence 04/25/2023 Obesity (BMI 35.0-39.9 without comorbidity) 04/25/2023 Seizure (CMS/HCC V24, CMS/HCC V28) 04/25/2023 Past Surgical History: Procedure Laterality Date CARPAL TUNNEL RELEASE Bilateral PROCEDURE: HISTORICAL CARPAL TUNNEL REL SECTION PROCEDURE: HISTORICAL DELIVERY HYSTERECTOMY 2009 PROCEDURE: HISTORICAL HYSTERECTOMY; COMMENT: fibroids OTHER SURGICAL HISTORY PROCEDURE: HISTORY OTHER; COMMENT: Colonoscopy in March 2021. OTHER SURGICAL HISTORY PROCEDURE: HISTORY OTHER; COMMENT: Upper endoscopy in 2016 FAMILY HISTORY: Family History Problem Relation Name Age of Onset Colon cancer Mother dementia and huntingtons Hypertension Mother Breast cancer Sister Myrena 40 Hypertension Sister Myrena Diabetes Sister Myrena Thyroid disease Sister Myrena Hypertension Sister Geni Thyroid disease Sister Geni Thyroid disease Daughter Erin Ovarian cancer Neg Hx OCCUPATION OR OCCUPATION EXPOSURE: SOCIAL HISTORY Social History Socioeconomic History Marital status: Spouse name: Not on file Number of children: Not on file Years of education: Not on file Highest education level: Not on file Occupational History Not on file Tobacco Use Smoking status: Former Smokeless tobacco: Never Substance and Sexual Activity Alcohol use: Yes Drug use: Never Sexual activity: Not on file Comment: Other Topics Concern Not on file Social History Narrative Not on file IMMUNIZATION: Immunization History Administered Date(s) Administered Moderna (age 6mo & older) Bivalent, COVID-19, 0.5 mL or 0.25 mL dosage 09/16/2022 Moderna SARS-CoV-2 COVID-19, mRNA, LNP-S, preservative free 10/28/2020, 11/25/2020, 07/04/2021 TD, Adsorbed, Preservative Free 07/04/2019 Tdap Tetanus diptheria acellular pertussis (Boostrix; Adacel) 7yo and older 02/15/2010 PHYSICAL EXAM: Visit Vitals BP 118/60 Pulse 69 Temp 36.4 ??C (97.6 ??F) (Temporal) Resp 16 Ht 1.626 m (64 ) Wt 94 kg (207 lb 3.2 oz) SpO2 96% BMI 35.57 kg/m?? Smoking Status Former BSA 1.99 m?? APPEARANCE: Alert and in no acute distress. EYES: Conjunctiva and sclera normal. + petechiae below the eye NOSE/SINUS: Nares normal. Septum midline. Mucosa No drainage or sinus tenderness. MOUTH/THROAT: no erythema or exudates. Mallampati class 2 NECK: Neck supple, thyroid symmetric and of normal size. HEART: RRR with normal S1 and S2, no murmurs, no gallops, no JVD appreciated. LUNG: CTA b/l, no wheezing or bronchial bs ABDOMEN: Bowel sounds normoactive, soft, non-tender EXTREMITIES: no clubbing, cyanosis, or edema. LYMPH NODES: No cervical and supra-clavicular lymphadenopathy. NEURO: Awake, alert and oriented x 3, no focalization Derm: no rash DIAGNOSTIC DATA: CARDIOPULMONARY TEST: Last Pulmonary function Test showed: Spirometry: FEV1/FVC 89%. FEV1 2.17 at 80%. FVC 71%. Good bronchodilator response 13 to 16%. Mild obstruction with good reversibility. Last Resulted: 12/07/23 RADIOLOGIST IMAGING: CT chest 12/2023 FINDINGS: There is 2 mm noncalcified pulmonary nodule in the lateral aspect of the right lower lobe, axial image 160, unchanged. There is no other pulmonary nodules. There is no acute airspace consolidations. Scarring was noted in the anterior inferior lingula and right middle lobe. There is no pleural effusion, infiltrate, pneumothorax, cardiomegaly, or pericardial effusion. There are multiple small soft tissue density nodules in the inferior aspect of the thymus measuring up to 6 mm. There are a few small lymph nodes in the precarinal area as well as in the AP window. Visualized portions of the abdominal organs are stable in appearance. There is no suspicious bone lesions. There is approximately 1.8 cm hypodense lesion in the right thyroid lobe left thyroid lobe has heavily calcified nodule measuring approximately 5 mm and hypodense nodule measuring approximately 7 mm. CONCLUSIONS: Tiny pulmonary nodule in the right lower lobe as detailed. Prominent soft tissue nodularity in the thymus which could be reactive. Clinical correlation is recommended with correlation with possible immunological disorders, infectious/inflammatory condition. Bilateral thyroid nodules. Thyroid ultrasound is recommended for further assessment. 5 ASSESSMENT: ICD-10-CM ICD-9-CM 1. Pulmonary nodule R91.1 793.11 2. Preop respiratory exam Z01.811 V72.82 PLAN: The pt has no active pulm issues- no wheezing on exam- vitals stable. Had PFT and chest CT in 2023 that essential showed no major lung disease. The knee replacement is associated with low risk of pulmonary complications and she should tolerate it from pulm point of view. The pt's lung nodule (2 mm)are stable on repeat. The patient smoked less than 20 pack years and is no longer eligible for low-dose CT scan - Follow up with No Pcp Physician for the other co-morbilities. - I spend 31 Minutes on this visit. The patient was educated about his problems, where assessment and plan was reviewed and explained, All questions were answered. This includes: Preparing to see the patient, obtaining and/or reviewing separately obtained history, performing a medically appropriate exam, ordering medications, tests, or procedures, documenting clinical information in the electronic health record, and independently interpreting results. RETURN TO THE NEXT VISIT: Based on physical exam, symptomatology, tests requested and baseline pulmonary evaluation/disease, I instructed the patient to come back to see me in 12 mths or prn for reevaluation after the test has been done or earlier if the patient needed. Thanks No Pcp Physician for allowing me to have the opportunity to assist in the care of this patient. documented in this encounter Plan of Treatment Not on file documented as of this encounter Visit Diagnoses Diagnosis Pulmonary nodule- Primary Other diseases of lung, not elsewhere classified Preop respiratory exam Pre-operative respiratory examination documented in this encounter Care Teams International Marketing Coordinator Relationship Specialty Start Date End Date Physician, No Pcp PCP - General 05/27/24 documented as of this encounter
--- OUTSIDE RECORDS SUMMARY | 2024-11-07 09:30 | XMS_ITS | Patient Health Record ---
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 (231026999) Localization-relate d (focal) (partial) symptomatic epilepsy and epileptic syndromes with complex partial seizures, intractable, without status epilepticus (G40.219) Active confirmed Problem Chronic intractable migraine without aura (146372140708757 ) Chronic migraine without aura, intractable, with status migrainosus (G43.711) Active confirmed Problem Transient ischemic attack (586412547) 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 Plan Of Treatment No Information Insurance Providers Payer Name Payer Address Payer Phone Subscriber Number Group Number Insured Name Patient Relationship to Insured Coverage Start Date Coverage End Date [place] Medicaid [address] [place] [address] [id number] Kenya Awad Self - patient is the insured Medical (General) History Medical History History ICD Code seizure disorder HTN gerd Surgical History Surgery Date(Month/Year) FRITZ w/o uterine fibroids 2010 carpal tunnel repair bilat resection flank lipoma in 20s Hospitalization History Reason Date(Month/Year) [facility] (yc hiatry-dreamy state, hallucinations) x 5 d 2017
--- OUTSIDE RECORDS SUMMARY | 2024-11-07 09:30 | XMS_ITS | Encounter Summary ---
Author Organization [facility] Address [address] [place] [address] Care Team Providers Care Transportation Maintenance Operator Name Role Phone Whit Thakur Primary Care Provider [phone] Reason for Visit * Reason Onset Date Comments request to speak with nurse 04/18/2021 Dr Mumtaz cochran med question 04/18/2021 Encounter Details Date Type Department Care Team (Late st Contact Info) Description 04/18/2021 Telephone [facility] Neurology Clinic [address] [place] [address] Telephone Intake, Staff request to speak [...] is looking for a facility/office in the [facility]. She will speak with her pcp about potential clinic. She didn't have any other questions at this time. #[phone] * Telephone Encounter - Sharon Bay RN - 04/18/2021 3:09 PM EDT Pt called to report that the PCP refused to prescribe the diclofenac for the pt that is a neurologymedication. The pt stated that her previous neurologist Dr Arias from [facility] is who originally prescribed it for her. [...] call back from nurse Katherine Keita # [phone] Please route your response back to the [facility] Neurology Admin Staff Pool. Thank you documented in this encounter Plan of Treatment Upcoming Encounters Date Type Department Care Team (Late st Contact Info) Description 12/09/2024 11:00 AM EDT Office Visit [facility] Neurology [facility] [address] [place] [address] Keith Conrad MD [address] [place] [address] documented as of this encounter Visit Diagnoses Not on filedocumented in this encounter Care Teams Transportation Maintenance Operator Relationship Specialty Start Date End Date Whit Thakur [address] [place] [address] PCP - General Family Medicine 10/06/24 documented as of this encounter
--- OUTSIDE RECORDS SUMMARY | 2024-11-07 09:30 | XMS_ITS | Encounter Summary ---
Author Organization [facility] Address [address] [place] [address] Care Team Providers Care Deputy Sheriff Chief Name Role Phone Whit Thakur Primary Care Provider [phone] Reason for Visit * Reason Onset Date Comments Med Refill 07/15/2021 Encounter Details Date Type Department Care Team (Late st Contact Info) Description 07/15/2021 Telephone [facility] Neurology Clinic [address] [place] [address] Telephone Intake, Staff Med Refill Social [...] Please route your response back to the [facility] Neurology Admin Staff Pool. Thank you documented in this encounter Plan of Treatment Upcoming Encounters Date Type Department Care Team (Late st Contact Info) Description 12/09/2024 11:00 AM EDT Office Visit [facility] Neurology [facility] [address] [place] [address] Keith Conrad MD [address] [place] [address] documented as of this encounter Visit Diagnoses Not on filedocumented in this encounter Care Teams Deputy Sheriff Chief Relationship Specialty Start Date End Date Whit Thakur [address] [place] [address] PCP - General Family Medicine 10/06/24 documented as of this encounter
--- OUTSIDE RECORDS SUMMARY | 2024-11-07 09:30 | XMS_ITS | Encounter Summary ---
Author Organization [facility] Address [address] [place] [address] Care Team Providers Care Patternmaker Metal Bench Name Role Phone Whit Thakur Primary Care Provider [phone] Reason for Visit * Reason Onset Date Comments Patient has questions 04/27/2021 Pt of Ricky Devries; Pt of [place] Encounter Details Date Type Department Care Team (Late st Contact Info) Description 04/27/2021 Telephone [facility] Neurology Clinic [address] [place] [address] Telephone Intake, Staff Patient has questions [...] Description 12/09/2024 11:00 AM EDT Office Visit [facility] Neurology Clinic [address] [place] [address] Keith Conrad MD [address] [place] [address] documented as of this encounter Visit Diagnoses Not on filedocumented in this encounter Care Teams Patternmaker Metal Bench Relationship Specialty Start Date End Date Whit Thakur [address] [place] [address] PCP - General Family Medicine 10/06/24 documented as of this encounter
--- OUTSIDE RECORDS SUMMARY | 2024-11-07 09:30 | XMS_ITS | Encounter Summary ---
Author Organization [facility] Address [address] [place] [address] Care Team Providers Care High School Social Studies Tutor Name Role Phone Whit Thakur Primary Care Provider [phone] Reason for Visit * Reason Onset Date Comments PAC Referral Request 11/06/2024 Pt called i n requesting a referral to [facility] to test for Huntingtons Disease specifically from [facility] Encounter Details Date Type Department Care Team (Late st Contact Info) Description 11/06/2024 Telephone [facility] Neurology Clinic [address] [place] [address] Telephone Intake, Staff PAC Referral Request (Pt called in requesting a referral to [facility] to test for Huntingtons Disease specifically from [facility]) Social History Tobacco Use Types Packs/Day Years [...] Encounter - Keith Conrad MD - 11/06/2024 11:14 AM EDT Duplicate encounter * Telephone Encounter - Ana Kaiser - 11/06/2024 9:50 AM EDT NEURO TRIAGE CALL PATIENT: Kenya Crespo BEST CALL BACK PHONE NUMBER: [phone] PATIENT'S NEUROLOGIST: Dr. Conrad REASON FOR CALL: Referral for testing BRIEF DESCRIPTION OF REASON FOR CALL: Pt called in requesting a referral to [facility] to test for Huntingtons Disease specifically from [facility] in [place] (Address: [address] [place] [address], phone number: ) UPCOMING APPOINTMENTS: Future Appointments Date Time Provider Department Center 12/09/2024 11:00 AM Keith Conrad MD [facility] Message will be sent to [facility] NEUROLOGY NURSING pool or appropriate nurse navigator Neurovascular/Stroke: Rowan Knott RN Epilepsy/Seizure: Sharon Bay RN Neuromuscular/Movement: Court Colon RN Cognitive: Iván Shaffer LPN documented in this encounter Plan of Treatment Upcoming Encounters Date Type Department Care Team (Late st Contact Info) Description 12/09/2024 11:00 AM EDT Office Visit [facility] Neurology Clinic [address] [place] [address] Keith Conrad MD [address] [place] [address] documented as of this encounter Visit Diagnoses Not on filedocumented in this encounter Care Teams High School Social Studies Tutor Relationship Specialty Start Date End Date Whit Thakur [address] [place], [place] [phone] PCP - General Family Medicine 10/06/24 documented as of this encounter
--- OUTSIDE RECORDS SUMMARY | 2024-11-07 09:30 | XMS_ITS | Encounter Summary ---
Author Organization [facility] Address [address] [place] [address] Care Team Providers Care Research Chef Name Role Phone Whit Thakur Primary Care Provider [phone] Encounter Details Date Type Department Care Team (Late st Contact Info) Description 07/22/2021 Telephone [facility] Neurology Clinic [address] [place] [address] Telephone Intake, Staff Social History Tobacco [...] regarding Nancy. Pt may be reached at [phone] documented in this encounter Plan of Treatment Upcoming Encounters Date Type Department Care Team (Late st Contact Info) Description 12/09/2024 11:00 AM EDT Office Visit [facility] Neurology Clinic [address] [place] [address] Keith Conrad MD [address] [place] [address] documented as of this encounter Visit Diagnoses Not on filedocumented in this encounter Care Teams Research Chef Relationship Specialty Start Date End Date Whit Thakur [address] [place] [address] PCP - General Family Medicine 10/06/24 documented as of this encounter
--- OUTSIDE RECORDS SUMMARY | 2024-11-07 09:30 | XMS_ITS | Encounter Summary ---
Author Organization [facility] Address [address] [place] [address] Care Team Providers Care Dipper And Drier Name Role Phone Whit Thakur Primary Care Provider [phone] Reason for Visit * Reason Onset Date Comments cs appointment new botox 11/29/2022 Encounter Details Date Type Department Care Team (Late st Contact Info) Description 11/29/2022 Telephone [facility] Central Scheduling Department [address] [place] [address] Telephone Intake, Staff cs appointment new botox [...] to schedule appointment. DT send TE Kenya: [phone] Thank you documented in this encounter Plan of Treatment Upcoming Encounters Date Type Department Care Team (Late st Contact Info) Description 12/09/2024 11:00 AM EDT Office Visit [facility] Neurology Clinic [address] [place] [address] Keith Conrad MD [address] [place] [address] documented as of this encounter Visit Diagnoses Not on filedocumented in this encounter Care Teams Dipper And Drier Relationship Specialty Start Date End Date Whit Thakur [address] [place] [address] PCP - General Family Medicine 10/06/24 documented as of this encounter
--- OUTSIDE RECORDS SUMMARY | 2024-11-07 09:30 | XMS_ITS | Encounter Summary ---
Author Organization [facility] Address [address] [place] [address] Care Team Providers Care Manager Asset Management Name Role Phone Whit Thakur Primary Care Provider [phone] Reason for Visit * Reason Onset Date Comments Appointment 09/28/2021 Encounter Details Date Type Department Care Team (Late st Contact Info) Description 09/28/2021 Telephone [facility] Central Scheduling Department [address] [place] [address] Telephone Intake, Staff Appointment Social History Tobacco [...] Keith Conrad rescheduling appt today 09/28 re team cdl driver is having car issues Per DT, rescheduled to 12/[address] Conrad documented in this encounter Plan of Treatment Upcoming Encounters Date Type Department Care Team (Late st Contact Info) Description 12/09/2024 11:00 AM EDT Office Visit [facility] Neurology Clinic [address] [place], [place] [phone] Keith Conrad MD [address] [place], [place] [phone] documented as of this encounter Visit Diagnoses Not on filedocumented in this encounter Care Teams Manager Asset Management Relationship Specialty Start Date End Date Whit Thakur [address] [place] [address] PCP - General Family Medicine 10/06/24 documented as of this encounter
--- OUTSIDE RECORDS SUMMARY | 2024-11-07 09:30 | XMS_ITS | Clinical Summary ---
Author Organization [address] [facility] Address [address] [place] [address] Phone Care Team Providers Care Parachute Officer Name Role Phone Physician, No Pcp Primary Care Provider Unavaila ble Allergies Active Allergy Reactions Criticality Noted Date Comments Baclofen Unknown 05/10/2022 hallucinations Codeine Nausea And Vomiting 12/17/2020 Latex 04/25/2023 Medications amLODIPine-bal zepril (LOTREL) 10-20 [...] 09/04/2023 Venous insufficiency 09/04/2023 Overview (04/29/2024): Per [facility] records. Carpal tunnel syndrome 04/25/2023 Chronic headache 04/25/2023 GERD (gastroesophageal reflux disease) HTN (hypertension) 04/25/2023 Memory changes 04/25/2023 Mixed incontinence 04/25/2023 Overview (04/29/2024): Last Assessment & Plan: Per [facility] records Obesity (BMI 35.0-39.9 without comorbidity) 04/02 Seizure (CMS/HCC V24, CMS/HCC V28) 04/25/2023 Encounters Date Type Department Care Team Description 11/03/2024 9:00 AM EDT Office Visit Pulmonolgy [address] [address] Sha Diamond MD Pulmonary nodule (Primary Dx); Preop respiratory exam 08/14/[address] [address] Sha Diamond MD from Last 3 [...] DX:Dyspare unia in female Family history of Boise's disease DX:Family history of Boise's disease GERD (gastroesophageal reflux disease) DX:GERD (gastroesophageal [...] Mass Index 35.57 11/03/2024 8:56 AM EDT Plan of Treatment Health Maintenance Due Date Last Done Comments [...] Results * Annual BMP Blood Test (12/13/2023) Annual BMP Blood Test Abstracted Historical Provider HEALTH MAINTENANCE Final Result * Hepatitis C Screening (08/06/2023) Hepatitis C Screening Abstracted [facility] Provider MD HEALTH MAINTENANCE Final Result * (ABNORMAL) Lipid panel (08/06/2023) LDL/HDL Ratio 5(A) 0 - 4 Triglycerides 157(A) 0 - 150 mg/dL Cholesterol 223(A) 0 - 200 mg/dL HDL 46 >=40 mg/dL LDL Cholesterol 146(A) 0 - 100 mg/dL Blood Venous blood specimen / Unknown [facility] Provider LAB BLOOD ORDERABLES Ginna l Result from Last 3 Months or Most Recently Relevant to [place] [id number] [facility] MEDICAID Care Teams Parachute Officer Relationship Specialty Start Date End Date Physician, No Pcp PCP - General 05/27/24
[2024-11-07 10:46] LABS: Glucose Fasting 93 mg/dL (60-99)
[2024-11-07 11:32] LABS: Cholesterol 154 mg/dL (<200); HDL Cholesterol 40 mg/dL (>40); LDL Cholesterol Calculated 91 mg/dL (<100); Triglycerides 118 mg/dL (<150)
[2024-11-07 13:36] LABS: Appearance Urine Clear; Color Urine Yellow; Glucose Urine UA Negative (Negative); Leukocyte Esterase Urine Negative (Negative); Nitrite Urine Negative (Negative); PH 7.5 (5.0-9.0); Specific Gravity - Urine 1.015 (1.005-1.025); Urine Blood Negative (Negative); Urine Ketones Negative (Negative); Urine Protein Negative (Neg-Trace)
== END 2024-11-07 09:16 | disposition home or self-care (01) ==
LOC: HO.HMGCLDS 09:15
PROVIDERS: PCP Nurse Practitioner Family; Visit Provider Nurse Practitioner Family
DX: Z01.818 Encounter for other preprocedural examination (principal); E78.5 Hyperlipidemia, unspecified
CPT/HCPCS: 36415; 80061; 81003; 82947

== ENCOUNTER 2024-11-10 14:57 | Outpatient (AMB) | payer OTHER, SELFPAY ==
--- NOTE | 2024-11-10 14:59 | A.OFFPC_ITS ---
Vital Signs 11/10/24 15:05 11/10/24 15:44 Height 5 ft 4 in Weight 208 lb 2 oz BMI 35.7 BP 137/62 120/70 Blood Pressure Location Rt brachial Rt brachial Position Sitting Sitting Respiration 16 Pulse 63 Pulse Source Pulse Oximeter Temp 97.8 F Temp Source Oral Pulse Oximetry (%) 99 Oxygen Delivery Method Room Air Intake Visit Reasons: Fall F/U Intake Note: patient here for follow up on fall Septic Tank Setter Required: No Is last menstrual period known: No Post menopausal: No Patient : No Allergies baclofen Allergy (Intermediate, Verified 11/10/24 15:03) Dizziness/nausea latex [LATEX] Allergy (Intermediate, Verified 11/10/24 15:03) Rash codeine [Codeine] Adverse Reaction (Intermediate, Verified 11/10/24 15:03) Nausea and Vomiting Tobacco use date assessed: 11/10/24 Dental Screening Dental Screen Date: 11/10/24 Did you have a dental visit in the last 12 months?: No Did you have a dental problem in the last 6 months where you did not have access to dental care?: No Was dental information given to patient?: Patient has dentist HPI HPI Comments History of Present Illness Details 54-year-old female presents for hospital discharge follow-up and clearance for left TKR on 11/17/2024. She was recently admitted at [facility] between 10/29/2024 and 10/30/2024. Hospital discharge summary below: DS: Summary Hospital Course Hospital Course: HPI:54-year-old female with a PMH significant for?HTN, HLD, seizure disorder, GERD, migraines, and mood disorder who presents to the ED after fall at home. Pt reports difficulties with short-term memory at baseline, though was particularly uncertain of events surrounding her fall this morning. Pt was treated in the ED with IVF and diazepam. Pt is admitted to the hospital for treatment and further evaluation of accidental lamotrigine overuse. Hospital course: 54-year-old female with a PMH significan t for?HTN, HLD, seizure disorder, GERD, migraines, and mood disorder who presents to the ED after fall at home. Pt reports difficulties with short-term memory at baseline, though was particularly uncertain of events surrounding her fall this morning. Pt was treated in the ED with IVF and diazepam. Pt is admitted to the hospital for treatment and further evaluation of accidental lamotrigine overuse : Patient electrolytes fine, monitored on telemetry seems fine, EKGs also done which seems also NSR. Patient was cleared by poison control. With the above supportive management patient dizziness seems to be improved significantly and now she is at her baseline, Patient was seen by Neurology recommended to continue current regimen and follow-up with the neurologist. She was educated and was advised to never take medicines other than the away there prescribed and not take additional doses like the way she did. Otherwise she fell better this morning and restart taking her regular doses and communicate with her neurologist for further guidance. As Falls at home: CT of face showing nasal bone fractures Laceration to bridge of nose closed with glue in the ED-patient does not have deformity or bleeding ,neither significant pain. Can use outpatient p.r.n. Tylenol. Patient was strongly advised to follow-up with the ENT office . plan: Follow-up with lamotrigine level outpatient Strongly advised medication use as prescribed,follow-up with the neurologist outpatient. For nasal fractures follow-up with ENT outpatient. Considering nasal fractures patient was given Augmentin 875 p.o. b.i.d.(we have told them in detail that it is not absolutely necessary , patient wouldlike to use prophylax since has nasal fractures above). follow up with pcp. Pt recomended home Pt -patient will benefit from going home with vna/pt. Patient and her sister both were informed in detail that-referral to the VNA sent by case management and then case management will follow up tomorrow on that. It might takes few days to get arranged above VNA/PT. Patient and her sister they both understand and still want to go home. 11/10/2024: She notes that she has been doing well since her recent hospital discharged. She recently had an admission for home PT for lower ext strengthening exercise and skilled nurse for assessments. She will schedule subsequent visits with them. She denies pain to her nose. She notes that she has not been referred to ENT for nasal fracture and requests a referral at this time. She states that she has been taking her medications as prescribed. She completely course of Augmentin. She denies acute symptoms at this time. [facility] Medical History Osteoarthritis Anesthesia complication Pulmonary nodules Hyperlipidemia Chronic cluster headache, intractable Seizure disorder Migraine Acid reflux HTN (hypertension) Surgical History History of esophagogastroduodenoscopy (EGD) H/O colonoscopy History of carpal tunnel release Hx of hysterectomy Family History Mother Alcohol abuse FH: mental illness Father Alcohol abuse Brother Alcohol abuse FH: mental illness Maternal Grandfather Alcohol abuse Sister Alcohol abuse FH: mental illness Maternal Grandmother FH: mental illness Social History Household Members: Family Household Members Other:: patient lives with her son, sister lives below Housing: House Are you a primary live in caregiver to a significant other at home: No Do you presently have visiting nurse or other home services: No Alcohol intake: never Patient Tobacco Use Status: Former Tobacco user Tobacco use type: Cigarette Years Smoked: 9 e-Cigarette/Vaping Use: Never Used Second Hand Smoke Exposure: No Advance Directives Date on File: 07/19/09 service: No 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al status: disabled 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al exposures/hazards: No Cognitive needs: No Hearing needs: No Vision needs: Yes Questionnaire Thrive Questionnaire Date Thrive assessed: 07/07/24 I am a: Patient What is your living situation today?: I have a steady place to live Within the past 12 months, did the food you bought not last and you didn't have the money to get more?: Never true Within the past 12 months, did you worry whether your food would run out before you got money to buy more?: Never true Do you have trouble paying for medicines?: No Do you have trouble getting transportation to medical appointments?: No Do you have trouble paying your heating and electricity bill?: No Do you have trouble taking care of your child, family member or friend?: No Do you have trouble with day-to-day activities such as bathing, preparing meals, shopping, managing finances, etc.?: No Are you currently unemployed and looking for a job?: No Are you interested in more education?: No Please select the resources that you would like help with: None Currently or been in a relationship where the following occur: No concerns reported THRIVE Score: 0 JOHN-7 AMB Questionnaire JOHN-7 Date JOHN - 7 assessed: 03/06/24 Source: Developed by Drs. Sin Chavira, Carolyn Amaro, Soham Elder and colleagues, with an educational kimberly from [employer]. Review of Systems Const Details: Const Denies chills, Denies fatigue, Denies fever(s), Denies headache(s) and Denies weakness ENT Denies dizziness and Denies headache(s) Card Denies chest pain, Denies lightheadedness, Denies dyspnea and Denies other (Palpitations) Resp Denies cough, Denies dyspnea, Denies wheezing and Denies other ( shortness of breath) GI Denies abdominal pain, Denies melena, Denies hematochezia, Denies change in bowel habits, Denies dyspepsia and Denies nausea Denies hematuria and Denies dysuria Musc Denies abnormal gait, Denies myalgias, Denies arthralgias, Denies numbness and Denies tingling Skin/Breast Denies rash, Denies unusual bruising and Denies wounds Neuro Denies abnormal gait, Denies dizziness, Denies headache(s), Denies memory loss, Denies numbness, Denies Sensory deficit (Neuro), Denies tingling and Denies weakness Psych Denies anxiety, Denies depression, Denies memory loss Endo Denies cold intolerance, Denies fatigue, Denies heat intolerance, Denies polydipsia and Denies polyuria Aller/Immun Denies wheezing Physical exam (Primary Care) Vital Signs: Last Vital Signs Temp 97.8 F 11/10/24 15:05 Pulse 63 11/10/24 15:05 Resp 16 11/10/24 15:05 BP 137/62 11/10/24 15:05 Pulse Ox 99 11/10/24 15:05 Oxygen Delivery Method Room Air 11/10/24 15:05 BMI result Body Mass Index 35.7 Tobacco/Smoking Status: Tobacco use Status Tobacco use date assessed 11/10/24 11/10/24 15:08 Patient Tobacco Use Status Former Tobacco user 11/10/24 14:59 Tobacco use type Cigarette 11/10/24 14:59 e-Cigarette/Vaping Use Never Used 11/10/24 14:59 Thrive Assessment: Date of Thrive Assessment Date Thrive assessed 07/07/24 11/10/24 14:59 Currently or been in a relationship where the following occur: No concerns reported Const Other: General: no acute distress and well developed Nutritional Appearance: well nourished Orientation/consciousness: patient oriented x3 [facility] Head: Yes normocephalic and Yes atraumatic Eyes General: appearance normal, both eyes and all related structures Pupils: Equal, round and reactive pupils present EOM: EOMs intact bilaterally Resp Effort & Inspection: normal respiratory effort Auscultation: clear to auscultation bilaterally Cardio Rate: regular rate Rhythm: regular rhythm Heart sounds: S1 normal heart sound present, S2 normal heart sound present, no gallops, no murmurs and no rubs GI Palpation (GI): No Abdominal aortic bruit present, Soft to palpation, nontender, No hepatosplenomegaly present and No Rebound tenderness present Auscultation: normal bowel sounds General: Yes no CVA tenderness Back/Spine/Pelvis Back: no CVA tenderness Cervical Spine: cervical ROM normal and No Cervical spine tenderness Thoracic/Lumbar Spine: thoraco-lumbar ROM normal, No pain with thoraco-lumbar ROM, No thoracic spinal tenderness and No lumbar spinal tenderness Extrem General: Yes normal to inspection, No edema and No calf tenderness Skin General: warm and dry. Normal skin color. Normal skin turgor Lesions: no lesions Rashes: no rashes Trauma: no lacerations or abrasions Wounds: no wounds Nails: normal Neuro General: patient oriented x3, gait normal and no focal neuro deficit Cranial nerves: Yes Equal, round and reactive pupils present Cognition (Neuro): normal cognition Gait exam (Neuro): Normal gait present Sensory Exam: No Sensory deficit (Neuro) Psych Appearance: grossly normal Affect: normal affect Attitude: cooperative Thought process: Normal thought process present Coding Level of Care Code Est Pt Level 4 (13284) Diagnoses History of recent fall Z91.81 Closed fracture nasal bone S02.2XXA Encounter type: initial encounter HTN (hypertension) I10 Hyperlipidemia E78.5 Preoperative clearance Z01.818 Assessment & Plan Assessment & Plan (1) History of recent fall: Code(s): Z91.81 - History of falling Category: Medical Plan: No acute symptoms at this time. Continue current treatment regimen. Advised to take her medications as prescribed to avoid adverse reactions, injury, fall, trauma. Referred to ENT for nasal fracture. Verbalized understanding and agreed with the plan. (2) Closed fracture nasal bone: Code(s): S02.2XXA - Fracture of nasal bones, initial encounter for closed fracture Category: Medical Qualifiers: Encounter type: initial encounter Qualified Code(s): S02.2XXA - Fracture of nasal bones, initial encounter for closed fracture Plan: Plan as above. (3) HTN (hypertension): Code(s): I10 - Essential (primary) hypertension Category: Medical Plan: Resting blood pressure is 120/70, within goal of less than 140/90. Continue current treatment regimen. Low-sodium diet encouraged. Follow-up in 3 months or sooner with symptoms or concerns. Verbalized understanding and agreed with treatment plan. (4) Hyperlipidemia: Code(s): E78.5 - Hyperlipidemia, unspecified Category: Medical Plan: Recent lipid panel level is unremarkable Continue current treatment regimen. Routine exercise and diet, including low-fat encouraged. Fast for 10-12 hours, may drink water, and performed lipid panel work 2-3 days before next visit. Follow-up for in 3 months. Verbalized understanding and agreed with the plan. (5) Preoperative clearance: Code(s): Z01.818 - Encounter for other preprocedural examination Category: Medical Plan: Vital signs stable, lung sounds clear and equal bilaterally, heart with regular rate and rhythm. Recent vital signs normal. Cleared for left TKA on 11/17/2024. Orders: Orders Lipid Panel 3 Months R45.89 - Other symptoms and signs involving emotional state Referrals Ear/Nose/Throat Referral S02.2XXA - Fracture of nasal bones, initial encounter for closed fracture
--- OUTSIDE RECORDS SUMMARY | 2024-11-10 15:02 | XMS_ITS | Encounter Summary ---
Author Organization [facility] Address [address] [place] [address] Care Team Providers Care Rotary Drier Name Role Phone hWit Thakur Primary Care Provider [phone] Reason for Visit * Reason Onset Date Comments referral order request 11/05/2024 Encounter Details Date Type Department Care Team (Late st Contact Info) Description 11/05/2024 Telephone [facility] [address] [place] [address] Telephone Intake, Staff referral order request [...] Telephone Encounter - Sharon Bay RN - 11/07/2024 10:20 AM EDT LVM for pt to cb regarding last message and response by provider. * Telephone Encounter - Keith Conrad MD - 11/06/2024 11:12 AM EDT Please let her know: If she wants diagnostic testing for Dillon's disease, I believe it needs to be a through a [facility]. I cannot simply order the testing as an epileptologist. I do not havethe training or experience to confidently act on the results of the testing, so it is not appropriate for me to order this. I think the movement group here at [facility] is a partner site with the [facility] in [place]. I can send a referral for evaluation to the movement disorders group here if she is interested. I'll also reach out to the movement group to see how specifically they might be able to help. * Telephone Encounter - Estefanía Nicole - 11/05/2024 3:58 PM EDT NEURO TRIAGE CALL PATIENT: Kenya Crespo BEST CALL BACK PHONE NUMBER: [phone] PATIENT'S NEUROLOGIST: Dr. Conrad REASON FOR CALL: Patient calling requesting a referral order for Dillon's Disease testing . Shewould like to have it done at [facility] in [place]. They will only do with neurologist approval the patient stated. Please advise thank you. IF PATIENT IS EXHIBITING SYMPTOMS ARE THESE NEW SYMPTOMS? UPCOMING APPOINTMENTS: Future Appointments Date Time Provider Department Center 12/09/2024 11:00 AM Keith Conrad MD [facility] [place] Message will be sent to [facility]SING pool or appropriate nurse navigator Neurovascular/Stroke: Rowan Knott RN Epilepsy/Seizure: Sharon Bay RN Neuromuscular/Movement: Court Colon RN Cognitive: Iván Shaffer LPN documented in this encounter Plan of Treatment Upcoming Encounters Date Type Department Care Team (Late st Contact Info) Description 12/09/2024 11:00 AM EDT Office Visit [facility] [address] [place] [address] Keith Conrad MD [address] [place] [phone] documented as of this encounter Visit Diagnoses Not on filedocumented in this encounter Care Teams Rotary Drier Relationship Specialty Start Date End Date Whit Thakur [address] [place] [address] PCP - General Family Medicine 10/06/24 documented as of this encounter
--- OUTSIDE RECORDS SUMMARY | 2024-11-10 15:02 | XMS_ITS | Encounter Summary ---
Author Organization [facility] Address [address] [place] [address] Care Team Providers Care Coal Conveyor Operator Name Role Phone Whit Thakur Primary Care Provider [phone] Encounter Details Date Type Department Care Team (Late st Contact Info) Description 03/01/2021 Telephone [facility] [address] [place] [address] Telephone Intake, Staff Social History Tobacco [...] 12/09/2024 11:00 AM EDT Office Visit [facility] [address] [place] [phone] Keith Conrad MD [address] [place] [address] documented as of this encounter Visit Diagnoses Not on filedocumented in this encounter Care Teams Coal Conveyor Operator Relationship Specialty Start Date End Date Whit Thakur [address] [place] [address] PCP - General Family Medicine 10/06/24 documented as of this encounter
--- OUTSIDE RECORDS SUMMARY | 2024-11-10 15:02 | XMS_ITS | Referral Summary ---
Author Organization [facility] Address [address] [place] [address] Care Team Providers Care Manager Math Name Role Phone Whit Thakur Primary Care Provider [phone] Encounters Date Type Department Care Team Description 11/06/2024 Telephone [facility] [address] [place] [address] Telephone Intake, Staff PAC Referral Request (Pt called in requesting a referral to [facility] to test for Huntingtons Disease specifically from [facility]) 11/05/2024 Telephone [facility] [address] [place] [address] Telephone Intake, Staff referral order request 10/26/2024 Refill [facility] [address] [place] [address] Keith Conrad MD Seizure-like activity (HCC); Intractable chronic migraine without aura and without status migrainosus 10/24/2024 3:00 PM EDT Office Visit [facility] Neurology [address] [address] Ricky Devries NP Seizure-like activity (HCC) (Primary Dx) 09/24/2024 Telephone [facility] [address] [place] [address] 8[address] Telephone Intake, Staff PAC Patient Request Call Back; PAC Appt Request - New 08/13/2024 Refill [facility] [address] [place] [address] Oneyda Delcid [place] Seizure-like activity; Intractable chronic [...] different from the original. PT-1 Request Number [id number] is Approved, 2 visits per month for [...] appointments with the headache/migraine providers here at [facility]. She has since found a new provider for headache/migraine in the [facility] area who will be [...] me now that I have returned to [facility]. Regarding the episodes that she calls seizures, [...] evaluated at a genetics center/[facility] in [place], but those records are not available. Plans to be evaluated at genetics clinic at [facility]. - Continue Lamotrigine 200 mg twice daily [...] patient would prefer somewhere closer to home ([place]) - Ambulatory EEG pending - Seizure/Fall precautions [...] Office Visit [facility] [address] [place] [address] Keith Conrad MD [address] [place] [address] Medical Devices Implanted Type Area Geodetic Advisor Device Identifier Shelf Expiration Date Model / Serial / Lot Device Closure Vascular 5fr Vascade - [id number] Implanted:Qty: 1 on 11/30/2022 at [facility] Implant [employer]MM[employer] 08/22/2024 [id number] X- [id number] / / [id number] Procedures * Due to [place] state law, this organization might not be sharing negative HIV tests. Procedure Name Priority Date/Time Associated Diagnosis Comments COMPREHENSIVE METABOLIC PANEL Routine 12/13/2023 2:02 PM EDT Seizure-like activity from Last 3 Months or Most Recently Relevant to Health Maintenance Results * Due to [place] state law, this organization might not be sharing negative HIV tests. * (ABNORMAL) Comprehensive Metabolic Panel (12/13/2023 2:02 PM EDT) NA 139 135 - 145 mmol/L 12/13/2023 3:29 PM EDT [facility] K 4.6 3.5 - 5.3 mmol/L 12/13/2023 3:29 PM EDT [facility] Cl 100 98 - 107 mmol/L 12/13/2023 3:29 PM EDT [facility] CO2 28 24 - 32 mmol/L 12/13/2023 3:29 PM EDT [facility] Anion Gap 11 5 - 15 12/13/2023 3:29 PM EDT [facility] Glucose 112(H) 65 - 99 mg/dL 12/13/2023 3:29 PM EDT [facility] Creatinine 0.68 0.50 - 1.20 mg/dL 12/13/2023 3:29 PM EDT [facility] Calcium 10.5 8.6 - 10.5 mg/dL 12/13/2023 3:29 PM EDT [facility] Total Protein 6.9 6.0 - 8.0 g/dL 12/13/2023 3:29 PM EDT [facility] Albumin 4.8 3.5 - 5.2 g/dL 12/13/2023 3:29 PM EDT [facility] Bilirubin, Total 0.2 0.2 - 1.2 mg/dL 12/13/2023 3:29 PM EDT [facility] Alkaline Phosphatase 71 35 - 129 U/L 12/13/2023 3:29 PM EDT [facility] AST 16 10 - 40 U/L 12/13/2023 3:29 PM EDT [facility] ALT 22 10 - 40 U/L 12/13/2023 3:29 PM EDT [facility] BUN 10 7 - 23 mg/dL 12/13/2023 3:29 PM EDT [facility] eGFR >90 >=60 mL/min/1. 73m2 12/13/2023 3:29 PM EDT [facility] Comment: The estimated glomerular [...] - 4.2 g/dL 12/13/2023 3:29 PM EDT [facility] A/G Ratio 2.3 1.5 - 3.0 12/13/2023 3:29 PM EDT [facility] Blood Structure of peripheral vein / Unknown Venipuncture / Unknown 12/13/2023 2:02 PM EDT 12/13/2023 2:31 PM EDT us Keith Conrad MD LAB BLOOD ORDERABLES Final Resul t [facility] [address] [place] [address], from Last 3 Months or Most Recently Relevant to Health Maintenance Insurance [place] [employer]ODDARD [id number] Advance Directives Documents on File Type Date Recorded Patient Set Key Driver Expl anation Health Care Proxy 11/24/2022 1:13 PM HEALTH CARE PROXY SCANNED IN Care Teams Manager Math Relationship Specialty Start Date End Date Whit Thakur [address] [place], [place] [phone] PCP - General Family Medicine 10/06/24
--- OUTSIDE RECORDS SUMMARY | 2024-11-10 15:02 | XMS_ITS | Encounter Summary ---
Author Organization [facility] Address [address] [place] [address] Care Team Providers Care School Photographs Detailer Name Role Phone Whit Thakur Primary Care Provider [phone] Encounter Details Date Type Department Care Team (Late st Contact Info) Description 03/02/2021 Telephone [facility] [address] [place] [address] [phone] Telephone Intake, Staff Social History Tobacco Use [...] Description 12/09/2024 11:00 AM EDT Office Visit [facility] [address] [place] [address] Keith Conrad MD [address] [place] [address] documented as of this encounter Visit Diagnoses Not on filedocumented in this encounter Care Teams School Photographs Detailer Relationship Specialty Start Date End Date Whit Thakur [address] [place] [address] PCP - General Family Medicine 10/06/24 documented as of this encounter
--- OUTSIDE RECORDS SUMMARY | 2024-11-10 15:02 | XMS_ITS | Encounter Summary ---
Author Organization [facility] Address [address] [place] [address] Care Team Providers Care Compotype Operator Name Role Phone Whit Thakur Primary Care Provider [phone] Encounter Details Date Type Department Care Team (Late st Contact Info) Description 07/22/2021 Telephone [facility] [address] [place] [address] Telephone Intake, Staff Social History Tobacco [...] regarding Nancy. Pt may be reached at [phone] documented in this encounter Plan of Treatment Upcoming Encounters Date Type Department Care Team (Late st Contact Info) Description 12/09/2024 11:00 AM EDT Office Visit [facility] [address] [place] [address] Keith Conrad MD [address] [place] [address] documented as of this encounter Visit Diagnoses Not on filedocumented in this encounter Care Teams Compotype Operator Relationship Specialty Start Date End Date Whit Thakur [address] [place] [address] PCP - General Family Medicine 10/06/24 documented as of this encounter
--- OUTSIDE RECORDS SUMMARY | 2024-11-10 15:02 | XMS_ITS | Patient Health Record ---
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 (657159849) Localization-relate d (focal) (partial) symptomatic epilepsy and epileptic syndromes with complex partial seizures, intractable, without status epilepticus (G40.219) Active confirmed Problem Chronic intractable migraine without aura (561014031720378 ) Chronic migraine without aura, intractable, with status migrainosus (G43.711) Active confirmed Problem Transient ischemic attack (438185150) 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 Plan Of Treatment No Information Insurance Providers Payer Name Payer Address Payer Phone Subscriber Number Group Number Insured Name Patient Relationship to Insured Coverage Start Date Coverage End Date [place] [address] [place] [address] [id number] Kenya Awad Self - patient is the insured Medical (General) History Medical History History ICD Code seizure disorder HTN gerd Surgical History Surgery Date(Month/Year) FRITZ w/o uterine fibroids 2010 carpal tunnel repair bilat resection flank lipoma in 20s Hospitalization History Reason Date(Month/Year) [facility] (yc hiatry-dreamy state, hallucinations) x 5 d 2017
--- OUTSIDE RECORDS SUMMARY | 2024-11-10 15:02 | XMS_ITS | Encounter Summary ---
Author Organization [facility] Address [address] [place] [address] Care Team Providers Care International Trade Specialist Name Role Phone Whit Thakur Primary Care Provider [phone] Reason for Visit * Reason Onset Date Comments request to speak with nurse 04/18/2021 Dr Mumtaz cochran med question 04/18/2021 Encounter Details Date Type Department Care Team (Late st Contact Info) Description 04/18/2021 Telephone [facility] [address] [place] [address] Telephone Intake, Staff request to speak [...] is [facility] a facility[facility]. She will speak with her pcp about potential clinic. She didn't have any other questions at this time. #[phone] * Telephone Encounter - Sharon Bay RN - 04/18/2021 3:09 PM EDT Pt called to report that the PCP refused to prescribe the diclofenac for the pt that is a neurologymedication. The pt stated that her previous neurologist Dr Arias from [facility] is who originally prescribed it for her. [...] call back from nurse Katherine Keita # [phone] Please route your response back to the [facility] Neurology Admin Staff Pool. Thank you documented in this encounter Plan of Treatment Upcoming Encounters Date Type Department Care Team (Late st Contact Info) Description 12/09/2024 11:00 AM EDT Office Visit [facility] [address] [place] [address] Keith Conrad MD [address] [place] [phone] documented as of this encounter Visit Diagnoses Not on filedocumented in this encounter Care Teams International Trade Specialist Relationship Specialty Start Date End Date Whit Thakur [address] [place] [address] PCP - General Family Medicine 10/06/24 documented as of this encounter
--- OUTSIDE RECORDS SUMMARY | 2024-11-10 15:02 | XMS_ITS | Encounter Summary ---
Author Organization [facility] Address [address] [place] [address] Care Team Providers Care Personnel Coordinator Name Role Phone Whit Thakur Primary Care Provider [phone] Reason for Visit * Reason Onset Date Comments Send message to Dr. Conrad 04/04/2021 Pt of Conrad EEG home device not working 04/04/2021 Encounter Details Date Type Department Care Team (Late st Contact Info) Description 04/04/2021 Telephone [facility] [address] [place] [address] Telephone Intake, Staff Send message to [...] technical difficulty with the EEG device the [facility] took it back. The pt neverhad the EEG reading started before the device issue. She would like a new device. Can we have a device sent to her in the mail? #[phone] * Telephone Encounter - Siomara Meghan - [...] be reached at her home number at [phone]. Thank you documented in this encounter Plan of Treatment Upcoming Encounters Date Type Department Care Team (Late st Contact Info) Description 12/09/2024 11:00 AM EDT Office Visit [facility] [address] [place] [address] Keith Conrad MD [address] [place] [address] documented as of this encounter Visit Diagnoses Not on filedocumented in this encounter Care Teams Personnel Coordinator Relationship Specialty Start Date End Date Whit Thakur [address] [place] [address] PCP - General Family Medicine 10/06/24 documented as of this encounter
--- OUTSIDE RECORDS SUMMARY | 2024-11-10 15:02 | XMS_ITS | Encounter Summary ---
Author Organization [facility] Address [address] [place] [address] Care Team Providers Care Research Librarian Name Role Phone Whit Thakur Primary Care Provider [phone] Encounter Details Date Type Department Care Team (Late st Contact Info) Description 03/22/2022 Telephone [facility] [address] [place] [address] [phone] Telephone Intake, Staff Social History Tobacco Use [...] - 03/27/2022 10:38 AM EDT PT-1 Number: [id number] Neurology Clinic - EXP: 03/23/2023 Treatment Details [...] Description 12/09/2024 11:00 AM EDT Office Visit [facility] [address], [place] [phone] Keith Conrad MD [address] [place] [address] documented as of this encounter Visit Diagnoses Not on filedocumented in this encounter Care Teams Research Librarian Relationship Specialty Start Date End Date Whit Thakur [address] [place] [address] PCP - General Family Medicine 10/06/24 documented as of this encounter
--- OUTSIDE RECORDS SUMMARY | 2024-11-10 15:02 | XMS_ITS | Encounter Summary ---
Author Organization [facility] Address [address] [place] [address] Care Team Providers Care Compounding Technician Name Role Phone Whit Thakur Primary Care Provider [phone] Encounter Details Date Type Department Care Team (Late st Contact Info) Description 08/02/2022 Orders Only [facility] Clinic [address] [place] [address] Shantel Cardoza MD [address] [place], [place] [phone] Headache syndrome; Transient neurological symptoms Social History [...] Description 12/09/2024 11:00 AM EDT Office Visit [facility] Clinic [address] [place], [place] [phone] Keith Conrad MD [address] [place] [address] documented as of this encounter Results * Due to [place] state law, this organization might not be sharing negative HIV tests. * Ambulatory EEG (08/02/2022 12:38 PM EST) Narrative Shantel Cardoza MD - 08/02/2022 12:38 PM EST Shantel Cardoza MD ? 08/02/2022 ??2:32 PM [facility] 3-DAY AMBULATORY CONTINUOUS VIDEO-EEG REPORT Patient: [place] [...] and placement protocol in person by an registered phlebotomist part time for the purposes of recording long-term video [...] and referential electrode montages. The patient or inspection supervisor was instructed to keep an event log [...] discharges or ictal build up. Single Channel Mason Apprentice: Rhythm: regular Rate (typical): ~ 66 bpm [...] symptoms documented in this encounter Care Teams Compounding Technician Relationship Specialty Start Date End Date Whit Thakur [address] [place] [address] PCP - General Family Medicine 10/06/24 documented as of this encounter
--- OUTSIDE RECORDS SUMMARY | 2024-11-10 15:02 | XMS_ITS | Clinical Summary ---
Author Organization [facility] Address [address] [place] [address] Care Team Providers Care Geek Squad Manager Name Role Phone Whit Thakur Primary Care Provider [phone] Allergies Active Allergy Reactions Criticality Noted Date [...] different from the original. PT-1 Request Number [id number] is Approved, 2 visits per month for [...] appointments with the headache/migraine providers here at [facility]. She has since found a new [...] me now that I have returned to [facility]. Regarding the episodes that she calls [...] HD: Reportedly was evaluated at a genetics center/[place] [facility] in [place], but those records are not available. Plans to be evaluated at genetics clinic at [facility]. - Continue Lamotrigine 200 mg twice [...] patient would prefer somewhere closer to home ([place]) - Ambulatory EEG pending - Seizure/Fall precautions at all times - Seizure and headache diary recommended - Genetic testing consultation scheduled. (+FH of HD) - Follow up in 3-4 months Resolved Problems Problem Noted Date Diagnosed Date Resolved Date Seizure 12/17/2020 12/13/2023 Encounters Date Type Department Care Team Description 11/06/2024 Telephone [facility] [address] [place] [address] Telephone Intake, Staff PAC Referral Request (Pt called in requesting a referral to [facility] to test for Huntingtons Disease specifically from [facility]) 11/05/2024 Telephone [facility] [address] [place] [address] Telephone Intake, Staff referral order request 10/26/2024 Refill [facility] [address] [place] [address] Keith Conrad MD Seizure-like activity (HCC); Intractable chronic migraine without aura and without status migrainosus 10/24/2024 3:00 PM EDT Office Visit [facility] [address] [place] [address] Ricky Devries NP Seizure-like activity (HCC) (Primary Dx) 09/24/2024 Telephone [facility] [address] [place] [address] 367[address] Telephone Intake, Staff PAC Patient Request Call Back; PAC Appt Request - New 08/13/2024 Refill [facility] [address] [place] [address] Oneyda Delcid [place] Seizure-like activity; Intractable chronic migraine without aura and without status migrainosus from Last 3 Months Family History Medical History Relation Name Comments COPD Father Tippah's disease Father Brain Aneurysm Maternal Grandmother Dementia [...] Description 12/09/2024 11:00 AM EDT Office Visit [facility] [address] [place] [address] Keith Conrad MD [address] [place] [address] Health Maintenance Due Date Last Done Comments [...] 11/03/2023, 07/14/2023 Medical Devices Implanted Type Area Dynamic Etching Processor Device Identifier Shelf Expiration Date Model / Serial / Lot Device Closure Vascular 5fr Vascade - [id number] Implanted:Qty: 1 on 11/30/2022 at [facility] Implant [employer] 08/22/2024 700-500D X- [id number] / / [id number] Procedures * Due to [place] [employer] law, this organization might not be sharing negative HIV tests. Procedure Name Priority Date/Time Associated Diagnosis Comments COMPREHENSIVE METABOLIC PANEL Routine 12/13/2023 2:02 PM EDT Seizure-like activity from Last 3 Months or Most Recently Relevant to Health Maintenance Results * Due to [place] [employer] law, this organization might not be sharing negative HIV tests. * (ABNORMAL) Comprehensive Metabolic Panel (12/13/2023 2:02 PM EDT) NA 139 135 - 145 mmol/L 12/13/2023 3:29 PM EDT [facility] K 4.6 3.5 - 5.3 mmol/L 12/13/2023 3:29 PM EDT [facility] Cl 100 98 - 107 mmol/L 12/13/2023 3:29 PM EDT [facility] CO2 28 24 - 32 mmol/L 12/13/2023 3:29 PM EDT [facility] Anion Gap 11 5 - 15 12/13/2023 3:29 PM EDT [facility] Glucose 112(H) 65 - 99 mg/dL 12/13/2023 3:29 PM EDT [facility] Creatinine 0.68 0.50 - 1.20 mg/dL 12/13/2023 3:29 PM EDT [facility] Calcium 10.5 8.6 - 10.5 mg/dL 12/13/2023 3:29 PM EDT [facility] Total Protein 6.9 6.0 - 8.0 g/dL 12/13/2023 3:29 PM EDT [facility] Albumin 4.8 3.5 - 5.2 g/dL 12/13/2023 3:29 PM EDT [facility] Bilirubin, Total 0.2 0.2 - 1.2 mg/dL 12/13/2023 3:29 PM EDT [facility] Alkaline Phosphatase 71 35 - 129 U/L 12/13/2023 3:29 PM EDT [facility] AST 16 10 - 40 U/L 12/13/2023 3:29 PM EDT [facility] ALT 22 10 - 40 U/L 12/13/2023 3:29 PM EDT [facility] BUN 10 7 - 23 mg/dL 12/13/2023 3:29 PM EDT [facility] eGFR >90 >=60 mL/min/1. 73m2 12/13/2023 3:29 PM EDT [facility] Comment: The estimated [...] - 4.2 g/dL 12/13/2023 3:29 PM EDT [facility] A/G Ratio 2.3 1.5 - 3.0 12/13/2023 3:29 PM EDT [facility] Blood Structure of peripheral vein / Unknown Venipuncture / Unknown 12/13/2023 2:02 PM EDT 12/13/2023 2:31 PM EDT us Keith Conrad MD LAB BLOOD ORDERABLES Final Resul t [facility] [address] [place] [address], from Last 3 Months or Most Recently Relevant to Health Maintenance Insurance [facility] [place] [employer] [id number] Advance Directives Documents on File Type Date Recorded Patient Hydraulic Rockbreaker Operator Expl anation Health Care Proxy 11/24/2022 1:13 PM HEALTH CARE PROXY SCANNED IN Care Teams Geek Squad Manager Relationship Specialty Start Date End Date Whit Thakur [address] [place] [address] PCP - General Family Medicine 10/06/24
--- OUTSIDE RECORDS SUMMARY | 2024-11-10 15:02 | XMS_ITS | Encounter Summary ---
Author Organization [facility] Address [address] [place] [address] Care Team Providers Care Whale Trainer Name Role Phone Whit Thakur Primary Care Provider [phone] Reason for Visit * Reason Onset Date Comments Med Refill 07/15/2021 Encounter Details Date Type Department Care Team (Late st Contact Info) Description 07/15/2021 Telephone [facility] Clinic [address] [place] [address] Telephone Intake, Staff Med Refill Social [...] your response back to the [facility] Neurology Admin Staff Pool. Thank you documented in this encounter Plan of Treatment Upcoming Encounters Date Type Department Care Team (Late st Contact Info) Description 12/09/2024 11:00 AM EDT Office Visit [facility] Clinic [address] [place] [address] Keith Conrad MD [address] [place] [address] documented as of this encounter Visit Diagnoses Not on filedocumented in this encounter Care Teams Whale Trainer Relationship Specialty Start Date End Date Whit Thakur [address] [place] [address] PCP - General Family Medicine 10/06/24 documented as of this encounter
--- OUTSIDE RECORDS SUMMARY | 2024-11-10 15:02 | XMS_ITS | Encounter Summary ---
Author Organization [facility] Address [address] [place] [address] Care Team Providers Care Biophysics Professor Name Role Phone Whit Thakur Primary Care Provider [phone] Reason for Visit * Reason Onset Date Comments PAC Referral Request 11/06/2024 Pt called i n requesting a referral to [facility] to test for Huntingtons Disease specifically from [facility] Encounter Details Date Type Department Care Team (Late st Contact Info) Description 11/06/2024 Telephone [facility] Neurology [facility] [address] [place] [address] Telephone Intake, Staff PAC Referral Request (Pt called in requesting a referral to [facility] to test for Huntingtons Disease specifically [...] Kenya Crespo BEST CALL BACK PHONE NUMBER: [phone] PATIENT'S NEUROLOGIST: Dr. Conrad REASON FOR CALL: Referral for testing BRIEF DESCRIPTION OF REASON FOR CALL: Pt called in requesting a referral to [facility] to test for Huntingtons Disease specifically from [facility] in [place] (Address: [address] [place] [address], phone number: ) UPCOMING APPOINTMENTS: Future Appointments Date Time Provider Department Center 12/09/2024 11:00 AM Keith Conrad MD [facility] AR Message will be sent to [facility] NEUROLOGY NURSING pool or appropriate nurse navigator Neurovascular/Stroke: Rowan Knott RN Epilepsy/Seizure: Sharon Bay RN Neuromuscular/Movement: Court Colon RN Cognitive: Iván Shaffer LPN documented in this encounter Plan of Treatment Upcoming Encounters Date Type Department Care Team (Late st Contact Info) Description 12/09/2024 11:00 AM EDT Office Visit [facility] Neurology [facility] [address] [place] [address] Keith Conrad MD [address] [place] [address] documented as of this encounter Visit Diagnoses Not on filedocumented in this encounter Care Teams Biophysics Professor Relationship Specialty Start Date End Date Whit Thakur [address] [employer], [place] [phone] PCP - General Family Medicine 10/06/24 documented as of this encounter
--- OUTSIDE RECORDS SUMMARY | 2024-11-10 15:02 | XMS_ITS | Encounter Summary ---
Author Organization [facility] Address [address] [place] [address] Care Team Providers Care Manager File Name Role Phone Whit Thakur Primary Care Provider [phone] Reason for Visit * Reason Onset Date Comments Patient has questions 04/27/2021 Pt of Ricky Devries; Pt of Anamaria Encounter Details Date Type Department Care Team (Late st Contact Info) Description 04/27/2021 Telephone [facility] Neurology Clinic [address] [place] [address] Telephone Intake, Staff Patient has questions [...] Visit [facility] Neurology Clinic [address] [place] [address] Keith Conrad MD [address] [place] [address] documented as of this encounter Visit Diagnoses Not on filedocumented in this encounter Care Teams Manager File Relationship Specialty Start Date End Date Whit Thakur [address] [place] [address] PCP - General Family Medicine 10/06/24 documented as of this encounter
--- OUTSIDE RECORDS SUMMARY | 2024-11-10 15:02 | XMS_ITS | Encounter Summary ---
Author Organization [facility] Address [address] [place] [address] Care Team Providers Care Purchaser Automotive Parts Name Role Phone Whit Thakur Primary Care Provider [phone] Reason for Visit * Reason Onset Date Comments cs appointment new botox 11/29/2022 Encounter Details Date Type Department Care Team (Late st Contact Info) Description 11/29/2022 Telephone [facility] Central Scheduling Department [address] [place] [address] Telephone Intake, Staff cs appointment new botox [...] to schedule appointment. DT send TE Kenya: [phone] Thank you documented in this encounter Plan of Treatment Upcoming Encounters Date Type Department Care Team (Late st Contact Info) Description 12/09/2024 11:00 AM EDT Office Visit [facility] Neurology Clinic [address] [place] [address] Keith Conrad MD [address] [place] [address] documented as of this encounter Visit Diagnoses Not on filedocumented in this encounter Care Teams Purchaser Automotive Parts Relationship Specialty Start Date End Date Whit Thakur [address] [place] [address] PCP - General Family Medicine 10/06/24 documented as of this encounter
--- OUTSIDE RECORDS SUMMARY | 2024-11-10 15:02 | XMS_ITS | Encounter Summary ---
Author Organization [facility] Address [address] [place] [address] Care Team Providers Care Supervisor Pairing And Inspecting Name Role Phone Whit Thakur Primary Care Provider Encounter Details Date Type Department Care Team (Late st Contact Info) Description 07/19/2021 myChart Message [facility] Neurology Clinic [address] [place] [address] Jackie Ritchie [place] Medication question Social History [...] Description 12/09/2024 11:00 AM EDT Office Visit [facility] Neurology Clinic [address] [place] [address] Keith Conrad MD [address] [place] [address] documented as of this encounter Visit Diagnoses Not on filedocumented in this encounter Care Teams Supervisor Pairing And Inspecting Relationship Specialty Start Date End Date Whit Thakur [address] [place] [address] PCP - General Family Medicine 10/06/24 documented as of this encounter
--- OUTSIDE RECORDS SUMMARY | 2024-11-10 15:02 | XMS_ITS | Encounter Summary ---
Author Organization [facility] Address [address] [place] [address] Care Team Providers Care Oil Sprayer Name Role Phone Whit Thakur Primary Care Provider [phone] Encounter Details Date Type Department Care Team (Late st Contact Info) Description 01/11/2021 myChart Message [facility] [address] [place] [address] Iván Clinton MD [address] [place] [address] Test Results Question Social History Tobacco Use [...] Description 12/09/2024 11:00 AM EDT Office Visit [facility] [address] [place], [place] [phone] Keith Conrad MD [address] [place], [place] [phone] documented as of this encounter Visit Diagnoses Not on filedocumented in this encounter Care Teams Oil Sprayer Relationship Specialty Start Date End Date Whit Thakur [address] [place] [address] PCP - General Family Medicine 10/06/24 documented as of this encounter
--- OUTSIDE RECORDS SUMMARY | 2024-11-10 15:03 | XMS_ITS | Encounter Summary ---
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 Conrad documented in this encounter Plan of Treatment Upcoming Encounters Date Type Department Care Team (Late st Contact Info) Description 12/09/2024 11:00 AM EDT Office Visit [facility] Neurology Clinic [address] [place], [place] [phone] Keith Conrad MD [address] [place], [place] [phone] documented as of this encounter Visit Diagnoses Not on filedocumented in this encounter Care Teams Edger Tailer Relationship Specialty Start Date End Date Whit Thakur [address] [place] [address] PCP - General Family Medicine 10/06/24 documented as of this encounter
--- OUTSIDE RECORDS SUMMARY | 2024-11-10 15:03 | XMS_ITS | Encounter Summary ---
Author Organization [facility] Address [address] [place] [address] Care Team Providers Care Subwarehouse Supervisor Name Role Phone Whit Thakur Primary Care Provider [phone] Reason for Visit * Reason Onset Date Comments Referral Request 08/23/2021 Encounter Details Date Type Department Care Team (Late st Contact Info) Description 08/23/2021 Telephone [facility] Central Scheduling Department [address] [place] [address] Telephone Intake, Staff Referral Request Social History [...] to a specialist. I tried front office assistant but was unable to get ahold of anyone. Please reach out to PT with any information. documented in this encounter Plan of Treatment Upcoming Encounters Date Type Department Care Team (Late st Contact Info) Description 12/09/2024 11:00 AM EDT Office Visit [facility] Neurology Clinic [address] [place] [address] [phone] Keith Conrad MD [address] [place] [address] documented as of this encounter Visit Diagnoses Not on filedocumented in this encounter Care Teams Subwarehouse Supervisor Relationship Specialty Start Date End Date Whit Thakur [address] [place] [address] PCP - General Family Medicine 10/06/24 documented as of this encounter
--- OUTSIDE RECORDS SUMMARY | 2024-11-10 15:03 | XMS_ITS | Clinical Summary ---
Author Organization [facility] Address [address] [place] [address] Phone Care Team Providers Care Naval Gunfire Liaison Officer Name Role Phone Physician, No Pcp [...] 09/04/2023 Venous insufficiency 09/04/2023 Overview (04/29/2024): Per [facility] records. Carpal tunnel syndrome 04/25/2023 Chronic headache 04/25/2023 GERD (gastroesophageal reflux disease) HTN (hypertension) 04/25/2023 Memory changes 04/25/2023 Mixed incontinence 04/25/2023 Overview (04/29/2024): Last Assessment & Plan: Per [facility] records Obesity (BMI 35.0-39.9 without comorbidity) 04/02 Seizure (CMS/HCC V24, CMS/HCC V28) 04/25/2023 Encounters Date Type Department Care Team Description 11/03/2024 9:00 AM EDT Office Visit Pulmonolgy [address] [address] Sha Diamond MD Pulmonary nodule (Primary Dx); Preop respiratory exam 08/14/[address] [address] Sha Diamond MD from Last [...] DX:Dyspare unia in female Family history of Fleming's disease DX:Family history of Fleming's disease GERD (gastroesophageal reflux disease) DX:GERD (gastroesophageal [...] C Screening (08/06/2023) Hepatitis C Screening Abstracted [facility] Provider MD HEALTH MAINTENANCE Final Result * (ABNORMAL) Lipid panel (08/06/2023) LDL/HDL Ratio 5(A) 0 - 4 Triglycerides 157(A) 0 - 150 mg/dL Cholesterol 223(A) 0 - 200 mg/dL HDL 46 >=40 mg/dL LDL Cholesterol 146(A) 0 - 100 mg/dL Blood Venous blood specimen / Unknown [facility] Provider LAB BLOOD ORDERABLES Ginna l Result from Last 3 Months or Most Recently Relevant [place] [id number] [facility] MEDICAID Care Teams Naval Gunfire Liaison Officer Relationship Specialty Start Date End Date Physician, No Pcp PCP - General 05/27/24
[2024-11-10 15:05] VITALS: BP 137/62; PULSE 63; RESP 16; TEMP 36.6; O2SAT 99; BMI 35.7
[2024-11-10 15:44] VITALS: BP 120/70
== END 2024-11-10 15:48 | disposition home or self-care (01) ==
LOC: HO.HMCFM 14:57
PROVIDERS: PCP Nurse Practitioner Family; Visit Provider Nurse Practitioner Family
DX: Z91.81 History of falling (principal); S02.2XXA Fracture of nasal bones, initial encounter for closed fracture; I10 Essential (primary) hypertension; E78.5 Hyperlipidemia, unspecified; Z01.818 Encounter for other preprocedural examination

== ENCOUNTER → 2024-11-10 14:57 | Outpatient (BNVA) | payer OTHER, SELFPAY | PROVIDERS: PCP Nurse Practitioner Family; Visit Provider Nurse Practitioner Family | DX: Z01.818 Encounter for other preprocedural examination (principal); I10 Essential (primary) hypertension; E78.5 Hyperlipidemia, unspecified; G40.909 Epilepsy, unspecified, not intractable, without status epilepticus; K21.9 Gastro-esophageal reflux disease without esophagitis; G43.909 Migraine, unspecified, not intractable, without status migrainosus; S02.2XXA Fracture of nasal bones, initial encounter for closed fracture; X58.XXXA Exposure to other specified factors, initial encounter; Y93.9 Activity, unspecified; Y92.9 Unspecified place or not applicable; Y99.9 Unspecified external cause status; Z91.81 History of falling | CPT/HCPCS: 99212 ==

== ENCOUNTER 2024-11-13 07:53 | Outpatient (AMB) | payer OTHER, SELFPAY ==
--- NOTE | 2024-11-13 07:55 | MHC.OFFVIS ---
Vital Signs 11/13/24 07:56 Height 5 ft 4 in Weight 208 lb BMI 35.7 Intake Visit Reasons: left knee pain Intake Note: Kenya is a 54 year old female who presents with complaints of progressively worsening left knee pain. She describes her pain as sharp and severe in nature. Her pain has gotten worse over the last few years in spite of continued non operative treatments. She has done physical therapy exercises which aggravated her pain. She has also tried Tylenol and anti-inflammatory medicines which gave her minimal relief. She has had injections in the past. The most recent injection gave her only mild relief. The patient has difficulty walking even short distances because of her pain. At this point her left knee pain is interfering with her activities of daily living and her ability to sleep well through the night. Allergies baclofen Allergy (Intermediate, Verified 11/13/24 07:56) Dizziness/nausea latex [LATEX] Allergy (Intermediate, Verified 11/13/24 07:56) Rash codeine [Codeine] Adverse Reaction (Intermediate, Verified 11/13/24 07:56) Nausea and Vomiting Medication List - Last Reconciled 11/13/24 by Glenn Vega MD amlodipine-benazepril 10-20 mg 1 cap PO DAILY atorvastatin 10 mg PO DAILY B-complex with vitamin C 1 tab PO DAILY divalproex 500 mg PO BID gabapentin 1,200 mg PO TID lamotrigine 200 mg PO BID meclizine 25 mg PO QID PRN omeprazole 40 mg PO DAILY@0630 ondansetron 4 mg PO TID PRN 5 days propranolol 40 mg PO BID walker Folding front wheeled walker [facility] Medical History Osteoarthritis Anesthesia complication Pulmonary nodules Hyperlipidemia Chronic cluster headache, intractable Seizure disorder Migraine Acid reflux HTN (hypertension) Surgical History History of esophagogastroduodenoscopy (EGD) H/O colonoscopy History of carpal tunnel release Hx of hysterectomy Family History Mother Alcohol abuse FH: mental illness Father Alcohol abuse Brother Alcohol abuse FH: mental illness Maternal Grandfather Alcohol abuse Sister Alcohol abuse FH: mental illness Maternal Grandmother FH: mental illness Social History Household Members: Family Household Members Other:: patient lives with her son, sister lives below Housing: House Are you a primary career development associate to a significant other at home: No Do you presently have visiting nurse or other home services: No Alcohol intake: never Patient Tobacco Use Status: Former Tobacco user Tobacco use type: Cigarette Years Smoked: 9 e-Cigarette/Vaping Use: Never Used Second Hand Smoke Exposure: No Advance Directives Date on File: 07/19/09 service: No 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al status: disabled 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al exposures/hazards: No Cognitive needs: No Hearing needs: No Vision needs: Yes Physical Exam Vital Signs: BMI result Body Mass Index 35.7 Const Other: Well-nourished well-developed very friendly female awake alert and oriented x3 in no acute distress Extrem Other: Bilateral lower extremity examination shows good capillary refill, no skin lesions noted, normal sensation light touch Left knee examination shows a minimal effusion, palpable crepitus with range of motion, pain with range of motion, range of motion from -3 degrees to 115 degrees, no instability Assessment & Plan Assessment & Plan (1) Arthritis of left knee: Code(s): M17.12 - Unilateral primary osteoarthritis, left knee Category: Medical Plan Ms. Awad presents with progressively worsening left knee pain due to end-stage degenerative joint disease. I had a lengthy discussion with the patient regarding the treatment options. At this point she has failed continued non operative treatments. The risks and benefits of left total knee replacement surgery were discussed at length with the patient. The patient wishes to proceed. client services assistant will be consulted following her surgery for home physical therapy and nursing. The patient will follow-up as instructed. Feel free to call me at any time should questions regarding her orthopedic management arise. I spent 21 minutes in reviewing the patient's records and imaging studies, seeing the patient and documenting in the medical record. Coding Level of Care Code Est Pt Level 3 (39110) Complex EM visit Add On G2211 Diagnoses Arthritis of left knee M17.12
--- OUTSIDE RECORDS SUMMARY | 2024-11-13 07:55 | XMS_ITS | Encounter Summary ---
Author Organization [facility] Address [address] [place] [address] Care Team Providers Care Geophysics Scientist Name Role Phone Whit Thakur Primary Care Provider [phone] Encounter Details Date Type Department Care Team (Late st Contact Info) Description 03/22/2022 Telephone [facility] Neurology Clinic [address] [place] [address] [phone] Telephone Intake, Staff Social History Tobacco Use [...] - 03/27/2022 10:38 AM EDT PT-1 Number: [id number] Neurology Clinic - EXP: 03/23/2023 Treatment Details [...] Description 12/09/2024 11:00 AM EDT Office Visit [facility] Neurology Clinic [address] [place], [place] [phone] Keith Conrad MD [address] [place] [address] documented as of this encounter Visit Diagnoses Not on filedocumented in this encounter Care Teams Geophysics Scientist Relationship Specialty Start Date End Date Whit Thakur [address] [place] [address] PCP - General Family Medicine 10/06/24 documented as of this encounter
--- OUTSIDE RECORDS SUMMARY | 2024-11-13 07:55 | XMS_ITS | Encounter Summary ---
Author Organization [facility] Address [address] [place] [address] Care Team Providers Care Meter And Regulator Shop Supervisor Name Role Phone Whit Thakur Primary Care Provider [phone] Reason for Visit * Reason Onset Date Comments Med Refill 07/15/2021 Encounter Details Date Type Department Care Team (Late st Contact Info) Description 07/15/2021 Telephone [facility] Neurology Clinic [address] [place] [address] Telephone Intake, Staff Med Refill Social [...] AM EDT Office Visit [facility] Neurology Clinic [address] [place] [address] Keith Conrad MD [address] [place] [address] documented as of this encounter Visit Diagnoses Not on filedocumented in this encounter Care Teams Meter And Regulator Shop Supervisor Relationship Specialty Start Date End Date Whit Thakur [address] [place] [address] PCP - General Family Medicine 10/06/24 documented as of this encounter
--- OUTSIDE RECORDS SUMMARY | 2024-11-13 07:55 | XMS_ITS | Encounter Summary ---
Author Organization [facility] Address [address] [place] [address] Care Team Providers Care Ceo And Co Founder Name Role Phone Whit Thakur Primary Care Provider [phone] Reason for Visit * Reason Onset Date Comments request to speak with nurse 04/18/2021 Dr Mumtaz cochran med question 04/18/2021 Encounter Details Date Type Department Care Team (Late st Contact Info) Description 04/18/2021 Telephone [facility] Neurology Clinic [address] [place] [address] Telephone Intake, Staff request to speak [...] is looking for a facility/office in the [facility]. She will speak with her pcp about potential clinic. She didn't have any other questions at this time. #[phone] * Telephone Encounter - Sharon Bay RN - 04/18/2021 3:09 PM EDT Pt called to report that the PCP refused to prescribe the diclofenac for the pt that is a neurologymedication. The pt stated that her previous neurologist Dr Arias from [facility] is who originally prescribed it for her. [...] call back from nurse Katherine Keita # [phone] Please route your response back to the [facility] Neurology Admin Staff Pool. Thank you documented in this encounter Plan of Treatment Upcoming Encounters Date Type Department Care Team (Late st Contact Info) Description 12/09/2024 11:00 AM EDT Office Visit [facility] Neurology Clinic [address] [place] [address] Keith Conrad MD [address] [place] [address] documented as of this encounter Visit Diagnoses Not on filedocumented in this encounter Care Teams Ceo And Co Founder Relationship Specialty Start Date End Date Whit Thakur [address] [place] [address] PCP - General Family Medicine 10/06/24 documented as of this encounter
--- OUTSIDE RECORDS SUMMARY | 2024-11-13 07:55 | XMS_ITS | Encounter Summary ---
Author Organization [facility] Address [address] [place] [address] Care Team Providers Care Nuclear Reactor Engineer Name Role Phone Whit Thakur Primary Care Provider [phone] Encounter Details Date Type Department Care Team (Late st Contact Info) Description 03/02/2021 Telephone [facility] Neurology Clinic [address] [place] [place] [address] [phone] Telephone Intake, Staff Social History Tobacco Use [...] Description 12/09/2024 11:00 AM EDT Office Visit [facility] Neurology Clinic [address] [place] [place] [address] Keith Conrad MD [address] [place] [address] documented as of this encounter Visit Diagnoses Not on filedocumented in this encounter Care Teams Nuclear Reactor Engineer Relationship Specialty Start Date End Date Whit Thakur [address] [place] [address] PCP - General Family Medicine 10/06/24 documented as of this encounter
--- OUTSIDE RECORDS SUMMARY | 2024-11-13 07:55 | XMS_ITS | Encounter Summary ---
Author Organization [facility] Address [address] [place] [address] Care Team Providers Care Chemical Engineering Teacher Name Role Phone Whit Thakur Primary Care Provider [phone] Encounter Details Date Type Department Care Team (Late st Contact Info) Description 07/19/2021 myChart Message [facility] Neurology Clinic [address] [place] [address] Jackie Ritchie [place] Medication question Social History [...] Description 12/09/2024 11:00 AM EDT Office Visit [facility] Neurology Clinic [address] [place] [address] Keith Conrad MD [address] [place] [address] documented as of this encounter Visit Diagnoses Not on filedocumented in this encounter Care Teams Chemical Engineering Teacher Relationship Specialty Start Date End Date Whit Thakur [address] [place] [address] PCP - General Family Medicine 10/06/24 documented as of this encounter
--- OUTSIDE RECORDS SUMMARY | 2024-11-13 07:55 | XMS_ITS | Encounter Summary ---
Author Organization [facility] Address [address] [place] [address] Care Team Providers Care Collar Separator Name Role Phone Whit Thakur Primary Care Provider [phone] Encounter Details Date Type Department Care Team (Late st Contact Info) Description 07/22/2021 Telephone [facility] Neurology Clinic [address] [place] [address] Telephone Intake, Staff Social History Tobacco [...] regarding Nancy. Pt may be reached at [phone] documented in this encounter Plan of Treatment Upcoming Encounters Date Type Department Care Team (Late st Contact Info) Description 12/09/2024 11:00 AM EDT Office Visit [facility] Neu[facility] Clinic [address] [place] [address] Keith Conrad MD [address] [place] [address] documented as of this encounter Visit Diagnoses Not on filedocumented in this encounter Care Teams Collar Separator Relationship Specialty Start Date End Date Whit Thakur [address] [place] [address] PCP - General Family Medicine 10/06/24 documented as of this encounter
--- OUTSIDE RECORDS SUMMARY | 2024-11-13 07:55 | XMS_ITS | Referral Summary ---
Author Organization [facility] Address [address] [place] [address] Care Team Providers Care Bow Tacker Name Role Phone Whit Thakur Primary Care Provider [phone] Encounters Date Type Department Care Team Description 11/06/2024 Telephone [facility] Neurology Clinic [address] [place] [address] Telephone Intake, Staff PAC Referral Request (Pt called in requesting a referral to [facility] to test for Huntingtons Disease specifically from [facility]) 11/05/2024 Telephone [facility] Neurology Clinic [address] [place] [address] Telephone Intake, Staff referral order request 10/26/2024 Refill [facility] Neurology Clinic [address] [place] [address] Keith Conrad MD Seizure-like activity (HCC); Intractable chronic migraine without aura and without status migrainosus 10/24/2024 3:00 PM EDT Office Visit [facility] Neurology [address] [address] Ricky Devries NP Seizure-like activity (HCC) (Primary Dx) 09/24/2024 Telephone [facility] Neurology Clinic [address] [place] [address] Telephone Intake, Staff PAC Patient Request Call Back; PAC Appt Request - New from Last 3 Months Allergies Active Allergy [...] different from the original. PT-1 Request Number [id number] is Approved, 2 visits per month for [...] appointments with the headache/migraine providers here at [facility]. She has since found a new [...] me now that I have returned to [facility]. Regarding the episodes that she calls [...] evaluated at a genetics center/[facility] center in [place], but those records are not available. Plans to be evaluated at genetics clinic at [facility]. - Continue Lamotrigine 200 mg [...] patient would prefer somewhere [place] to [place] ([place]) - Ambulatory EEG pending - Seizure/Fall precautions [...] 11:00 AM EDT Office Visit [facility] Neu[facility] [address] [place] [address] Keith Conrad MD [address] [place] [address] Medical Devices Implanted Type Area Dough Braker Device Identifier Shelf Expiration Date Model / Serial / Lot Device Closure Vascular 5fr Vascade - [id number] Implanted:Qty: 1 on 11/30/2022 at [facility] Implant [employer] 08/22/2024 [id number] / / [id number] Procedures * Due to [place] Secret law, this organization might not be sharing negative HIV tests. Procedure Name Priority Date/Time Associated Diagnosis Comments COMPREHENSIVE METABOLIC PANEL Routine 12/13/2023 2:02 PM EDT Seizure-like activity from Last 3 Months or Most Recently Relevant to Health Maintenance Results * Due to [place] Secret law, this organization might not be sharing negative HIV tests. * (ABNORMAL) Comprehensive Metabolic Panel (12/13/2023 2:02 PM EDT) NA 139 135 - 145 mmol/L 12/13/2023 3:29 PM EDT [facility] K 4.6 3.5 - 5.3 mmol/L 12/13/2023 3:29 PM EDT [facility] Cl 100 98 - 107 mmol/L 12/13/2023 3:29 PM EDT [facility] CO2 28 24 - 32 mmol/L 12/13/2023 3:29 PM EDT [facility] Anion Gap 11 5 - 15 12/13/2023 3:29 PM EDT [facility] Glucose 112(H) 65 - 99 mg/dL 12/13/2023 3:29 PM EDT [facility] Creatinine 0.68 0.50 - 1.20 mg/dL 12/13/2023 3:29 PM EDT [facility] Calcium 10.5 8.6 - 10.5 mg/dL 12/13/2023 3:29 PM EDT [facility] Total Protein 6.9 6.0 - 8.0 g/dL 12/13/2023 3:29 PM EDT [facility] Albumin 4.8 3.5 - 5.2 g/dL 12/13/2023 3:29 PM EDT [facility] Bilirubin, Total 0.2 0.2 - 1.2 mg/dL 12/13/2023 3:29 PM EDT [facility] Alkaline Phosphatase 71 35 - 129 U/L 12/13/2023 3:29 PM EDT [facility] AST 16 10 - 40 U/L 12/13/2023 3:29 PM EDT [facility] ALT 22 10 - 40 U/L 12/13/2023 3:29 PM EDT [facility] BUN 10 7 - 23 mg/dL 12/13/2023 3:29 PM EDT [facility] eGFR >90 >=60 mL/min/1. 73m2 12/13/2023 3:29 PM EDT [facility] Comment: The estimated glomerular [...] - 4.2 g/dL 12/13/2023 3:[address] [facility] A/G Ratio 2.3 1.5 - 3.0 12/13/2023 3:29 PM EDT [facility] Blood Structure of peripheral vein / Unknown Venipuncture / Unknown 12/13/2023 2:02 PM EDT 12/13/2023 2:31 PM EDT us Keith Conrad MD LAB BLOOD ORDERABLES Final Resul t [facility] [address] [place] [address], [place] from Last 3 Months or Most Recently Relevant to Health Maintenance Insurance [facility] Advance Directives Documents on File Type Date Recorded Patient Member Of The Legislative Assembly Expl anation Health Care Proxy 11/24/2022 1:13 PM HEALTH CARE PROXY SCANNED IN Care Teams Bow Tacker Relationship Specialty Start Date End Date Whit Thakur [address] [place] [address] PCP - General Family Medicine 10/06/24
--- OUTSIDE RECORDS SUMMARY | 2024-11-13 07:55 | XMS_ITS | Encounter Summary ---
Author Organization [facility] Address [address] [place] [address] Care Team Providers Care Clinical Science Consultant Name Role Phone Whit Thakur Primary Care Provider [phone] Reason for Visit * Reason Onset Date Comments Patient has questions 04/27/2021 Pt of Ricky Devries; Pt of Anamaria Encounter Details Date Type Department Care Team (Late st Contact Info) Description 04/27/2021 Telephone [facility] [address] [place] [address] Telephone Intake, Staff Patient has questions [...] Description 12/09/2024 11:00 AM EDT Office Visit [facility] [address] [place] [address] Keith Conrad MD [address] [place] [address] documented as of this encounter Visit Diagnoses Not on filedocumented in this encounter Care Teams Clinical Science Consultant Relationship Specialty Start Date End Date Whit Thakur [address] [place] [address] PCP - General Family Medicine 10/06/24 documented as of this encounter
--- OUTSIDE RECORDS SUMMARY | 2024-11-13 07:55 | XMS_ITS | Encounter Summary ---
Author Organization [facility] Address [address] [place] [address] Care Team Providers Care Bankruptcy Law Specialist Name Role Phone Whit Thakur Primary Care Provider [phone] Encounter Details Date Type Department Care Team (Late st Contact Info) Description 08/02/2022 Orders Only [facility] [address] [place] [address] Shantel Cardoza MD [address] [place], [place] [phone] Headache syndrome; Transient neurological symptoms Social History [...] Description 12/09/2024 11:00 AM EDT Office Visit [facility] [address] [place], [place] [phone] Keith Conrad MD [address] [place] [address] documented as of this encounter Results * Due to [place] state law, this organization might not be sharing negative HIV tests. * Ambulatory EEG (08/02/2022 12:38 PM EST) Narrative Shantel Cardoza MD - 08/02/2022 12:38 PM EST Shantel Cardoza MD ? 08/02/2022 ??2:32 PM [facility] 3-DAY AMBULATORY CONTINUOUS VIDEO-EEG REPORT [...] and placement protocol in person by an local telephone operator for the purposes of recording long-term [...] and referential electrode montages. The patient or bmx rider was instructed to keep an event log [...] discharges or ictal build up. Single Channel Cinder Pit Worker: Rhythm: regular Rate (typical): ~ 66 bpm [...] symptoms documented in this encounter Care Teams Bankruptcy Law Specialist Relationship Specialty Start Date End Date Whit Thakur [address] [place] [address] PCP - General Family Medicine 10/06/24 documented as of this encounter
--- OUTSIDE RECORDS SUMMARY | 2024-11-13 07:55 | XMS_ITS | Clinical Summary ---
Author Organization [facility] Address [address] [place] [address] Care Team Providers Care Server Developer Name Role Phone Whit Thakur Primary Care Provider [phone] Allergies Active Allergy Reactions Criticality Noted Date [...] different from the original. PT-1 Request Number [id number] is Approved, 2 visits per month for [...] appointments with the headache/migraine providers here at [facility]. She has since found a new provider for headache/migraine in the [facility] area who will be doing her [...] me now that I have returned to [facility]. Regarding the episodes that she [...] HD: Reportedly was evaluated at a genetics center/[place] [facility] in [place], but those records are not available. Plans to be evaluated at genetics clinic at [facility]. - Continue Lamotrigine 200 mg twice daily [...] patient would prefer somewhere closer to home ([place]) - Ambulatory EEG pending - Seizure/Fall precautions at all times - Seizure and headache diary recommended - Genetic testing consultation scheduled. (+FH of HD) - Follow up in 3-4 months Resolved Problems Problem Noted Date Diagnosed Date Resolved Date Seizure 12/17/2020 12/13/2023 Encounters Date Type Department Care Team Description 11/06/2024 Telephone [facility] [address] [place] [address] Telephone Intake, Staff PAC Referral Request (Pt called in requesting a referral to [facility] to test for Huntingtons Disease specifically from [facility]) 11/05/2024 Telephone [facility] [address] [place] [address] Telephone Intake, Staff referral order request 10/26/2024 Refill [facility] [address] [place] [address] Keith Conrad MD Seizure-like activity (HCC); Intractable chronic migraine without aura and without status migrainosus 10/24/2024 3:00 PM EDT Office Visit [facility] [address] [place] [address] Ricky Devries NP Seizure-like activity (HCC) (Primary Dx) 09/24/2024 Telephone [facility] [address] [place] [address] Telephone Intake, Staff PAC Patient Request Call Back; PAC Appt Request - New from Last 3 Months Family History Medical [...] Office Visit [facility] [address] [place] [address] Keith Conrad MD [address] [place] [address] Health Maintenance Due Date Last Done Comments [...] 11/03/2023, 07/14/2023 Medical Devices Implanted Type Area Stacker Tender Device Identifier Shelf Expiration Date Model / Serial / Lot Device Closure Vascular 5fr Vascade - [id number] Implanted:Qty: 1 on 11/30/2022 at [facility] Implant [employer] EMMY 08/22/2024 [id number] / / [id number] Procedures * Due to [place] Pet[employer] law, this organization might not be sharing negative HIV tests. Procedure Name Priority Date/Time Associated Diagnosis Comments COMPREHENSIVE METABOLIC PANEL Routine 12/13/2023 2:02 PM EDT Seizure-like activity from Last 3 Months or Most Recently Relevant to Health Maintenance Results * Due to [place] [employer] law, this organization might not be sharing negative HIV tests. * (ABNORMAL) Comprehensive Metabolic Panel (12/13/2023 2:02 PM EDT) NA 139 135 - 145 mmol/L 12/13/2023 3:29 PM EDT [facility] K 4.6 3.5 - 5.3 mmol/L 12/13/2023 3:29 PM EDT [facility] Cl 100 98 - 107 mmol/L 12/13/2023 3:29 PM EDT [facility] CO2 28 24 - 32 mmol/L 12/13/2023 3:29 PM EDT [facility] Anion Gap 11 5 - 15 12/13/2023 3:29 PM EDT [facility] Glucose 112(H) 65 - 99 mg/dL 12/13/2023 3:29 PM EDT [facility] Creatinine 0.68 0.50 - 1.20 mg/dL 12/13/2023 3:29 PM EDT [facility] Calcium 10.5 8.6 - 10.5 mg/dL 12/13/2023 3:29 PM EDT [facility] Total Protein 6.9 6.0 - 8.0 g/dL 12/13/2023 3:29 PM EDT [facility] Albumin 4.8 3.5 - 5.2 g/dL 12/13/2023 3:29 PM EDT [facility] Bilirubin, Total 0.2 0.2 - 1.2 mg/dL 12/13/2023 3:29 PM EDT [facility] Alkaline Phosphatase 71 35 - 129 U/L 12/13/2023 3:29 PM EDT [facility] AST 16 10 - 40 U/L 12/13/2023 3:29 PM EDT [facility] ALT 22 10 - 40 U/L 12/13/2023 3:29 PM EDT [facility] BUN 10 7 - 23 mg/dL 12/13/2023 3:29 PM EDT [facility] eGFR >90 >=60 mL/min/1. 73m2 12/13/2023 3:29 PM EDT [facility] Comment: The estimated glomerular [...] - 4.2 g/dL 12/13/2023 3:29 PM EDT [facility] A/G Ratio 2.3 1.5 - 3.0 12/13/2023 3:29 PM EDT [facility] Blood Structure of peripheral vein / Unknown Venipuncture / Unknown 12/13/2023 2:02 PM EDT 12/13/2023 2:31 PM EDT us Keith Conrad MD LAB BLOOD ORDERABLES Final Resul t [facility] [address] [place] [address], from Last 3 Months or Most Recently Relevant to Health Maintenance Insurance [facility] Advance Directives Documents on File Type Date Recorded Patient Health And Safety Tech Expl anation Health Care Proxy 11/24/2022 1:13 PM HEALTH CARE PROXY SCANNED IN Care Teams Server Developer Relationship Specialty Start Date End Date Whit Thakur [address] [place] [address] PCP - General Family Medicine 10/06/24
--- OUTSIDE RECORDS SUMMARY | 2024-11-13 07:55 | XMS_ITS | Encounter Summary ---
Author Organization [facility] Address [address] [place] [address] Care Team Providers Care Leadership Development Instructor Name Role Phone Whit Thakur Primary Care Provider [phone] Reason for Visit * Reason Onset Date Comments Send message to Dr. Conrad 04/04/2021 Pt of Conrad EEG home device not working 04/04/2021 Encounter Details Date Type Department Care Team (Late st Contact Info) Description 04/04/2021 Telephone [facility] [address] [place] [address] Telephone Intake, Staff Send message to [...] technical difficulty with the EEG device the [facility] it [facility]. The pt neverhad the EEG reading started before the device issue. She would like a new device. Can we have a device sent to her in the mail? #[phone] * Telephone Encounter - Siomara Meghan - [...] be reached at her home number at [phone]. Thank you documented in this encounter Plan of Treatment Upcoming Encounters Date Type Department Care Team (Late st Contact Info) Description 12/09/2024 11:00 AM EDT Office Visit [facility] [address] [place] [address] Keith Conrad MD [address] [place] [address] documented as of this encounter Visit Diagnoses Not on filedocumented in this encounter Care Teams Leadership Development Instructor Relationship Specialty Start Date End Date Whit Thakur [address] [place] [address] PCP - General Family Medicine 10/06/24 documented as of this encounter
--- OUTSIDE RECORDS SUMMARY | 2024-11-13 07:55 | XMS_ITS | Encounter Summary ---
Author Organization [facility] Address [address] [place] [address] Care Team Providers Care Diesel Mechanic Construction Name Role Phone Whit Thakur Primary Care Provider [phone] Encounter Details Date Type Department Care Team (Late st Contact Info) Description 01/11/2021 myChart Message [facility] [address] [place] [address] Iván Clinton MD [address] [place] [address] Test Results Question Social History Tobacco Use [...] Description 12/09/2024 11:00 AM EDT Office Visit [facility] [address] [place], [place] [phone] Keith Conrad MD [address] [place], [place] [phone] documented as of this encounter Visit Diagnoses Not on filedocumented in this encounter Care Teams Diesel Mechanic Construction Relationship Specialty Start Date End Date Whit Thakur [address] [place] [address] PCP - General Family Medicine 10/06/24 documented as of this encounter
[2024-11-13 07:56] VITALS: BMI 35.7
--- OUTSIDE RECORDS SUMMARY | 2024-11-13 07:56 | XMS_ITS | Encounter Summary ---
Author Organization [facility] Address [address] [place] [address] Care Team Providers Care Program Management Specialist Name Role Phone Whit Thakur Primary Care Provider [phone] Reason for Visit * Reason Onset Date Comments Referral Request 08/23/2021 Encounter Details Date Type Department Care Team (Late st Contact Info) Description 08/23/2021 Telephone [facility] Central Scheduling Department [address] [place] [address] Telephone Intake, Staff Referral Request Social History [...] a referral to a specialist. I tried manager front but was unable to get ahold of anyone. Please reach out to PT with any information. documented in this encounter Plan of Treatment Upcoming Encounters Date Type Department Care Team (Late st Contact Info) Description 12/09/2024 11:00 AM EDT Office Visit [facility] [address] [place] [address] [phone] Keith Conrad MD [address] [place] [address] documented as of this encounter Visit Diagnoses Not on filedocumented in this encounter Care Teams Program Management Specialist Relationship Specialty Start Date End Date Whit Thakur [address] [place] [address] PCP - General Family Medicine 10/06/24 documented as of this encounter
--- OUTSIDE RECORDS SUMMARY | 2024-11-13 07:56 | XMS_ITS | Encounter Summary ---
Author Organization [facility] Address [address] [place] [address] Care Team Providers Care Straight Line Press Setter Name Role Phone Whit Thakur Primary Care Provider [phone] Reason for Visit * Reason Onset Date Comments cs appointment new botox 11/29/2022 Encounter Details Date Type Department Care Team (Late st Contact Info) Description 11/29/2022 Telephone [facility] Central Scheduling Department [address] [place] [address] Telephone Intake, Staff cs appointment new botox [...] to schedule appointment. DT send TE Kenya: [phone] Thank you documented in this encounter Plan of Treatment Upcoming Encounters Date Type Department Care Team (Late st Contact Info) Description 12/09/2024 11:00 AM EDT Office Visit [facility] [address] [place] [address] Keith Conrad MD [address] [place] [address] documented as of this encounter Visit Diagnoses Not on filedocumented in this encounter Care Teams Straight Line Press Setter Relationship Specialty Start Date End Date Whit Thakur [address] [place] [address] PCP - General Family Medicine 10/06/24 documented as of this encounter
--- OUTSIDE RECORDS SUMMARY | 2024-11-13 07:56 | XMS_ITS | Encounter Summary ---
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 Conrad documented in this encounter Plan of Treatment Upcoming Encounters Date Type Department Care Team (Late st Contact Info) Description 12/09/2024 11:00 AM EDT Office Visit [facility] [address] [place], [place] [phone] Keith Conrad MD [address] [place], [place] [phone] documented as of this encounter Visit Diagnoses Not on filedocumented in this encounter Care Teams Knife Cutter Relationship Specialty Start Date End Date Whit Thakur [address] [place] [address] PCP - General Family Medicine 10/06/24 documented as of this encounter
--- OUTSIDE RECORDS SUMMARY | 2024-11-13 07:56 | XMS_ITS | Encounter Summary ---
Author Organization [facility] Address [address] [place] [address] Care Team Providers Care Steamboat Inspector Name Role Phone Whit Thakur Primary Care Provider [phone] Encounter Details Date Type Department Care Team (Late st Contact Info) Description 03/01/2021 Telephone [facility] [address] [place] [address] Telephone Intake, Staff Social History Tobacco [...] Description 12/09/2024 11:00 AM EDT Office Visit [facility] [address] [place] [address] Keith Conrad MD [address] [place] [address] documented as of this encounter Visit Diagnoses Not on filedocumented in this encounter Care Teams Steamboat Inspector Relationship Specialty Start Date End Date Whit Thakur [address] [place] [address] PCP - General Family Medicine 10/06/24 documented as of this encounter
--- OUTSIDE RECORDS SUMMARY | 2024-11-13 07:56 | XMS_ITS | Patient Health Record ---
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 (225607712) Localization-relate d (focal) (partial) symptomatic epilepsy and epileptic syndromes with complex partial seizures, intractable, without status epilepticus (G40.219) Active confirmed Problem Chronic intractable migraine without aura (685465677527114 ) Chronic migraine without aura, intractable, with status migrainosus (G43.711) Active confirmed Problem Transient ischemic attack (421497530) 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 Plan Of Treatment No Information Insurance Providers Payer Name Payer Address Payer Phone Subscriber Number Group Number Insured Name Patient Relationship to Insured Coverage Start Date Coverage End Date [place] Medicaid [address] [place] [address] [id number] Kenya Awad Self - patient is the insured Medical (General) History Medical History History ICD Code seizure disorder HTN gerd Surgical History Surgery Date(Month/Year) [facility] w/o uterine fibroids 2010 carpal tunnel repair bilat resection flank lipoma in 20s Hospitalization History Reason Date(Month/Year) [facility] (yc hiatry-dreamy state, hallucinations) x 5 d 2017
--- OUTSIDE RECORDS SUMMARY | 2024-11-13 07:56 | XMS_ITS | Encounter Summary ---
Author Organization [facility] Address [address] [place] [address] Care Team Providers Care Printing Sign Machine Operator Name Role Phone Whit Thakur Primary Care Provider [phone] Reason for Visit * Reason Onset Date Comments PAC Referral Request 11/06/2024 Pt called i n requesting a referral to [facility] to test for Huntingtons Disease specifically from [facility] Encounter Details Date Type Department Care Team (Late st Contact Info) Description 11/06/2024 Telephone [facility] [address] [place] [address] Telephone Intake, Staff PAC Referral Request (Pt called in requesting a referral to [facility] to test for Huntingtons Disease specifically [...] Kenya Crespo BEST CALL BACK PHONE NUMBER: [phone] PATIENT'S NEUROLOGIST: Dr. Conrad REASON FOR CALL: Referral for testing BRIEF DESCRIPTION OF REASON FOR CALL: Pt called in requesting a referral to [facility] to test for Huntingtons Disease specifically from [facility] in [place] (Address: [address] [place] [address], phone number: ) UPCOMING APPOINTMENTS: Future Appointments Date Time Provider Department Center 12/09/2024 11:00 AM Keith Conrad MD [facility] Message will be sent to [facility] pool or appropriate nurse navigator Neurovascular/Stroke: Rowan Knott RN Epilepsy/Seizure: Sharon Bay RN Neuromuscular/Movement: Court Colon RN Cognitive: Iván Shaffer LPN documented in this encounter Plan of Treatment Upcoming Encounters Date Type Department Care Team (Late st Contact Info) Description 12/09/2024 11:00 AM EDT Office Visit [facility] [address] [place] [address] Keith Conrad MD [address] [place] [address] documented as of this encounter Visit Diagnoses Not on filedocumented in this encounter Care Teams Printing Sign Machine Operator Relationship Specialty Start Date End Date Whit Thakur [address] [place], [place] [phone] PCP - General Family Medicine 10/06/24 documented as of this encounter
== END 2024-11-13 08:16 | disposition home or self-care (01) ==
LOC: HO.HOS 07:54
PROVIDERS: PCP Nurse Practitioner Family; Visit Provider Orthopaedic Surgery
DX: M17.12 Unilateral primary osteoarthritis, left knee (principal)
CPT/HCPCS: 99213; G2211

== ENCOUNTER → 2024-11-13 07:53 | Outpatient (BNVA) | payer OTHER, SELFPAY | PROVIDERS: PCP Nurse Practitioner Family; Visit Provider Orthopaedic Surgery | DX: M17.12 Unilateral primary osteoarthritis, left knee (principal) | CPT/HCPCS: 99212 ==

== ENCOUNTER 2024-11-17 08:46 | Day surgery (SDC) | payer OTHER, SELFPAY ==
--- NOTE | 2024-10-21 | ECG_ITS ---
Test Reason : PRE OP Blood Pressure : */* mmHG Vent. Rate : 63 BPM Atrial Rate : 63 BPM P-R Int : 186 ms QRS Dur : 86 ms QT Int : 402 ms P-R-T Axes : 48 37 21 degrees QTcB Int : 411 ms Normal sinus rhythm Normal ECG When compared with ECG of 17-Jun-2024 14:19, Premature supraventricular complexes are no longer Present Nonspecific T wave abnormality no longer evident in Lateral leads Referred By: Nanette Wheeler Electronically Signed By: RUDOLPH ELLIS
[2024-10-21 12:03] VITALS: BP 134/75; PULSE 61; RESP 20; O2SAT 97; BMI 35.2
--- NOTE | 2024-10-21 12:33 | P.CONAN_ITS ---
Documented by User: Nanette Wheeler NP 11/11/24 12:26 HPI - Anesthesia Eval Consult details Narrative: 54yo F for Left Knee Replacement Total, 11/17/24 Medically optimized per PCP Optimized per neuro. Eval 09/2024 and stable on current regimen for seizures. Pulmo optimized. Follows for stable, 2mm nodule and family hx. Less than 20 pack year former smoker No recent illness. Cough with slight phlegm d/t GERD No CP/SOB within limits of knee pain Seizures on rx: Last ~ 1 year ago PMFSH Active Problems Active Problems: All Active Problems Preop examination (Acute) Arthritis of left knee (Acute) Burning sensation (Acute) Corneal abrasion, right (Acute) Eye exam, routine (Acute) Obesity (BMI 30-39.9) (Acute) Pulmonary nodules (Acute) Breast cancer screening by mammogram (Acute) Anxiety about health (Acute) Hyperlipidemia (Acute) Normal physical examination, routine (Acute) Laboratory tests ordered as part of a complete physical exam (CPE) (Acute) Frequent falls (Acute) Myofascial pain (Acute) Sacroiliac joint dysfunction of right side (Acute) Osteoarthritis of left knee (Acute) Osteoarthritis of right knee (Acute) Seizure disorder (Acute) HTN (hypertension) (Acute) Migraine (Acute) Chronic cluster headache, intractable (Acute) Past Medical History Medical History delivery delivered Lipoma of back Osteoarthritis Anesthesia complication Pulmonary nodules Hyperlipidemia Chronic cluster headache, intractable Seizure disorder Migraine Acid reflux HTN (hypertension) Family History Family History Mother Alcohol abuse FH: mental illness Father Alcohol abuse Brother Alcohol abuse FH: mental illness Maternal Grandfather Alcohol abuse Sister Alcohol abuse FH: mental illness Maternal Grandmother FH: mental illness Family history of problems with anesthesia: No Surgical History Surgical History History of esophagogastroduodenoscopy (EGD) H/O colonoscopy History of carpal tunnel release Hx of hysterectomy History of Problems with Anesthesia: Yes (PONV/dizzy after colonoscopy - ? con scious sedation) Social History Social History Household Members: Family Household Members Other:: patient lives with her son, sister lives below Housing: House Are you a primary healthcare financial analyst to a significant other at home: No Do you presently have visiting nurse or other home services: No Alcohol intake: never Patient Tobacco Use Status: Former Tobacco user Tobacco use type: Cigarette Years Smoked: 9 e-Cigarette/Vaping Use: Never Used Second Hand Smoke Exposure: No Use of substances other than those prescribed or required for medical reasons: No Have you been hit, kicked, punched, or otherwise hurt by someone within the past year? 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al exposures/hazards: No Cognitive needs: No Hearing needs: No Vision needs: Yes Meds Allergies Allergy/AdvReac Type Severity Reaction Status Date / Time baclofen Allergy Intermediate Dizziness/n Verified 11/13/24 07:56 ausea latex [LATEX] Allergy Intermediate Rash Verified 11/13/24 07:56 codeine [Codeine] AdvReac Intermediate Nausea and Verified 11/13/24 07:56 Vomiting Home Medications ?Medication ?Instructions ?Recorded ?Confirmed ?Last Taken ?Type divalproex 250 mg tablet,delayed 500 mg PO BID 09/23/21 11/17/24 11/17/24 History release lamotrigine 25 mg tablet 200 mg PO BID 02/12/23 11/17/24 11/17/24 History B-complex with vitamin C 1 tab PO DAILY 03/06/24 11/17/24 11/10/24 History gabapentin 600 mg tablet 1,200 mg PO TID 03/06/24 11/17/24 11/17/24 History amlodipine 10 mg-benazepril 20 mg 1 cap PO DAILY 10/21/24 11/17/24 11/17/24 History capsule atorvastatin 10 mg tablet 10 mg PO DAILY 10/21/24 11/17/24 11/17/24 History omeprazole 40 mg capsule,delayed 40 mg PO DAILY@0630 10/21/24 11/17/24 11/17/24 History release meclizine 25 mg tablet 25 mg PO QID PRN dizziness 10/29/24 11/17/24 Unknown History Exam Height,Weight and Vital Signs: Height 5 ft 4 in Weight 92.986 kg Last Vital Signs Pulse 61 10/21/24 12:03 Resp 20 10/21/24 12:03 BP 134/75 10/21/24 12:03 Pulse Ox 97 10/21/24 12:03 O2 Del Method Room Air 10/21/24 12:03 Pertinent Lab Results Pertinent Lab Results: Lab Results 10/21/24 11/07/24 Range/Units 12:25 10:30 Nasal Screen MRSA (PCR) NEGATIVE (Negative) Nasal S. aureus Screen POSITIVE A (Negative) Nasal MRSA/S.aureus Interp SEE NOTE Blood Type O Positive Antibody Screen NEGATIVE Narrative Narrative: EKG 09/2024 Vent. Rate : 63 BPM Atrial Rate : 63 BPM P-R Int : 186 ms QRS Dur : 86 ms QT Int : 402 ms P-R-T Axes : 48 37 21 degrees QTcB Int : 411 ms Normal sinus rhythm Normal ECG When compared with ECG of 17-Jun-2024 14:19, Premature supraventricular complexes are no longer Present Nonspecific T wave abnormality no longer evident in Lateral leads Airway TM Dist: >3cm Neck ROM: Full Loose/Missing/Broken Teeth: Yes (crowns throughout, right upper tooth pulled) Heart: RRR Lungs: CTAB Assessment and Plan Assessment Anesthesia Assessment: Anesthesia Plan Discussed and PAT Visit Final Anesthetic Review Family History of Problems with Anesthesia: No History of Problems with Anesthesia: Yes (PONV/dizzy after colonoscopy - ? conscious sedation) Documented by User: Sandra Valadez MD 11/17/24 10:18 [facility] Past Medical History Medical History delivery delivered Lipoma of back Osteoarthritis Anesthesia complication Pulmonary nodules Hyperlipidemia Chronic cluster headache, intractable Seizure disorder Migraine Acid reflux HTN (hypertension) Family History Family History Mother Alcohol abuse FH: mental illness Father Alcohol abuse Brother Alcohol abuse FH: mental illness Maternal Grandfather Alcohol abuse Sister Alcohol abuse FH: mental illness Maternal Grandmother FH: mental illness Surgical History Surgical History History of esophagogastroduodenoscopy (EGD) H/O colonoscopy History of carpal tunnel release Hx of hysterectomy Social History Social History Household Members: Family Household Members Other:: patient lives with her son, sister lives below Housing: House Are you a primary healthcare financial analyst to a significant other at home: No Do you presently have visiting nurse or other home services: No Alcohol intake: never Patient Tobacco Use Status: Former Tobacco user Tobacco use type: Cigarette Years Smoked: 9 e-Cigarette/Vaping Use: Never Used Second Hand Smoke Exposure: No Use of substances other than those prescribed or required for medical reasons: No Have you been hit, kicked, punched, or otherwise hurt by someone within the past year? 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al exposures/hazards: No Cognitive needs: No Hearing needs: No Vision needs: Yes Meds Allergies Allergy/AdvReac Type Severity Reaction Status Date / Time baclofen Allergy Intermediate Dizziness/n Verified 11/13/24 07:56 ausea latex [LATEX] Allergy Intermediate Rash Verified 11/13/24 07:56 codeine [Codeine] AdvReac Intermediate Nausea and Verified 11/13/24 07:56 Vomiting Home Medications ?Medication ?Instructions ?Recorded ?Confirmed ?Last Taken ?Type divalproex 250 mg tablet,delayed 500 mg PO BID 09/23/21 11/17/24 11/17/24 History release lamotrigine 25 mg tablet 200 mg PO BID 02/12/23 11/17/24 11/17/24 History B-complex with vitamin C 1 tab PO DAILY 03/06/24 11/17/24 11/10/24 History gabapentin 600 mg tablet 1,200 mg PO TID 03/06/24 11/17/24 11/17/24 History amlodipine 10 mg-benazepril 20 mg 1 cap PO DAILY 10/21/24 11/17/24 11/17/24 History capsule atorvastatin 10 mg tablet 10 mg PO DAILY 10/21/24 11/17/24 11/17/24 History omeprazole 40 mg capsule,delayed 40 mg PO DAILY@0630 10/21/24 11/17/24 11/17/24 History release meclizine 25 mg tablet 25 mg PO QID PRN dizziness 10/29/24 11/17/24 Unknown History Exam Airway Mallampati Class: II Assessment and Plan Assessment Anesthesia Assessment: Chart Reviewed Final Anesthetic Review NPO: Yes ASA Class: III Final Preanesthetic Review: No Changes in Pt Med Stat, Meds/Allgs Chart Reviewed, Consent Obtained/Reviewed and Anes Risks/Benef Reviewed Patient Risk: Intermediate Procedure Risk: Intermediate Anesthetic Plan Anesthetic Plan: MAC:, Spinal, Regional Block and Agree w/ Assess. and Plan Disposition: Standard PACU and Inp. Admit - IMC
[2024-10-21 14:43] LABS: MRSA Nasal PCR NEGATIVE (Negative); SA Nasal PCR POSITIVE (Negative)
[2024-11-17] VITALS (7 sets, daily range): BP systolic 95–148; BP diastolic 52–79; PULSE 58–78; RESP 16–17; TEMP 36.1–36.6; O2SAT 95–98; BMI 36.2; BMI 35.9
[2024-11-17] MEDS: Lactated Ringers 1,000 ML 100 ML IVCONT ×3 (10:13→23:31)
--- NOTE | 2024-11-17 13:50 | P.BOP_ITS ---
Brief Operative Note Date of Service: 11/17/24 Pre-op diagnosis: Left knee degenerative joint disease Post-op diagnosis: same Procedure: Left total knee arthroplasty Implants: [place] [employer] cemented posterior stabilized total knee arthroplasty with a femoral component size 2 left, tibial component size 2, polyethylene liner size 2 with 9 mm of thickness, a symmetric patellar component size 29 with 8 mm of thickness Surgeon: Glenn Vega MD Anesthesia: regional and spinal Was an Corrugated Box Machine Operator used for this Procedure?: No Corrugated Box Machine Operator: Ana Flores Estimated blood loss (mL): 200 Pathology: other (Bony fragments from the right femur, tibia and patella) Condition: stable Disposition: PACU
--- NOTE | 2024-11-17 13:52 | P.OP_ITS ---
Operative Note Operative Note Date of Service: 11/17/24 Narrative: After the patient was identified as Kenya Awad and her left knee was initialed by myself the patient was brought to the holding area where a left leg nerve block was performed by the anesthesiologist in routine fashion. The patient was then brought to the operating room where conscious sedation and spinal anesthesia were performed by the anesthesiologist in routine fashion. The patient was given 2 g of IV Ancef preoperatively for infection prophylaxis. The patient's left lower extremity was prepped and draped in sterile fashion. A formal time-out was completed. The patient's left knee was placed onto a small bump to produce 30? of knee flexion during exposure. A #10 scalpel blade was used to make a midline incision extending 1 handbreadth proximal and distal to the patella. A second #10 scalpel blade was used to dissect the subcutaneous tissues down to the extensor mechanism. The subcutaneous flaps were maintained as thick as possible. A medial parapatellar arthrotomy was then performed using a #10 scalpel blade. The arthrotomy was begun just medial to the patellar tendon. The arthrotomy was continued 1 cm medial to the patella and then 5 mm into the medial aspect of the quadriceps tendon. The infrapatellar fat pad was partially excised to help with exposure. The soft tissue retinaculum was raised one-half of the way around the medial aspect of the proximal tibia. The patella was everted and the knee was flexed to 90?. There was no injury to the patellar tendon or its insertion onto the tibial tubercle. A drill bit was introduced into the distal aspect of the femur with a starting point 1 cm anterior to the origin of the posterior cruciate ligament. The intramedullary alignment cecil was put into place. The distal alignment guide was set for a 5 degree valgus cut. The distal cutting block was put into place and was held with 4 pins. The intramedullary alignment cecil was removed. Soft tissues were retracted in the distal femoral cut was made using a sagittal saw. The distal aspect of the femur measured to be a size 2 left component. Two drill holes were placed into the distal aspect of the femur marking 3? of external rotation. The distal cutting block was impacted into place and was held with 2 pins. Soft tissues were retracted and the 4 distal femoral cuts were made using a sagittal saw. Final notching and drilling of the distal aspect of the femur were performed in routine fashion. The trial femoral component was impacted into place. The knee was taken through a full range of motion. The patella tracked well. The patella was everted and the knee was flexed to 90?. The trial component was removed and our attention was directed to the proximal tibia. The medial and lateral menisci were removed using a #10 scalpel blade. A small rim of the medial meniscus was left intact to help prevent injury to the medial collateral ligament. A drill bit was then introduced into the proximal tibia with a starting point midway from medial to lateral and one-third of the way posteriorly. The intramedullary alignment cecil was put into place. The proximal tibial cutting guide was placed over the alignment cecil in line with the 2nd toe. The guide was held in place using 3 pins. The intramedullary alignment cecil was removed. Soft tissues were retracted and the proximal tibial cut was made using a sagittal saw. The proximal tibia measured to be a size 2 component. The tibial tray was put into place with a 9 mm liner. The femoral component was impacted into place. The knee was taken through a full range of motion. There was full flexion and full extension. There was no instability with varus or valgus stress testing with the knee in flexion or extension. The patella tracked well with no medially directed force. The rotation of the tibial tray was marked using electrocautery with the knee in extension. The patella was everted and the knee was flexed to 90?. All trial components were removed. The tibial tray was placed onto the proximal tibia in line with the electrocautery favian. The tray was held in place using 3 pins. Final broaching of the proximal tibia was performed in routine fashion. The trial liner and trial femoral component were put into place. The knee was brought into extension and our attention was directed to the patella. The patella measured 25 mm in thickness. The patellar resection guide was set for a 10 mm resection. Soft tissues were retracted and the patella cut was made using a sagittal saw. The remaining patella measured 15 mm in thickness. The undersurface of the patella was measur ed to be a size 29 symmetric component. Three drill holes were placed into the undersurface of the patella in routine fashion. The trial component was put into place. The knee was taken through a full range of motion. The patella tracked well. The patella was everted and the knee was flexed to 90?. All trial components were removed. The knee was once again brought into extension and placed onto a small bump. The knee joint was irrigated with copious amounts of normal saline solution via pulse lavage while the cement was mixed. The patella was everted and the knee was flexed to 90?. A small amount of cement was placed along the posterior aspects of the tibial and femoral components. Cement was then pressurized into the proximal tibia. The tibial component was impacted into place. Any excess cement was removed. The polyethylene liner was then impacted into place. Cement was then pressurized into the distal aspect of the femur. A small amount of cement was placed into the intramedullary canal to help reduce bleeding. The femoral component was impacted into place. Any excess cement was removed. The knee was then brought into extension. Cement was pressurized into the undersurface of the patella. The patellar component was put into place and was held with a patella clamp. Any excess cement was removed. Once the cement had hardened the patellar clamp was removed. The knee was taken through a full range of motion. There was full flexion and extension. There was no instability with varus or valgus stress testing with the knee in flexion or extension. The patella tracked well with no medially directed force. The knee joint was irrigated with copious amounts of normal saline solution via pulse lavage. Any significant bleeding vessels were coagulated. The patient's left knee was placed onto a small bump. The arthrotomy was closed with #2 Ethibond [id number] interrupted suture as well as #1 Vicryl [id number] interrupted suture. The wound was once again irrigated. The subcutaneous tissues were closed with 0 Vicryl and 2-0 Vicryl interrupted sutures. The skin was closed with skin prashant. Dry sterile dressing and Sánchez bandages were placed over the patient's left knee. The patient was awake and alert. The patient was transferred to the recovery room in stable condition.
--- NOTE | 2024-11-17 14:29 | PHA.MEDREC ---
Pharmacy Consult ? Medication Reconciliation Pharmacy has completed the medication reconciliation. Reviewed med rec done by nursing. Matches claims.
[2024-11-17] MEDS: Gabapentin 600 MG TABLET 1200 MG PO ×2 (14:52→20:38)
--- NOTE | 2024-11-17 16:12 | P.CONIM_ITS ---
History of Present Illness Data of Consult Service Date: 11/17/24 Primary Care Provider: hWit Thakur CNP HPI Reason for consult: MEdical care a 54-year-old female with a PMH significant for?HTN, HLD, seizure disorder, GERD, migraines, and mood disorder who presents to the hospital for elective Lt knee Arthroplasty. Patient reports pain after surgery. She was recently admitted to the hospital after a fall at home and injury to nasal bone with a fracture. Feels better as Lamotrigine level was monitored as outpatient. No chest pain, palpitations, SOB, nausea, vomiting, diarrhea or urinary symptoms. Hospitalist team asked to evaluated the patient for her ongoing medical problems. Review of Systems Review of Systems: No fever, chills or weakness No chest pain, palpitation No shortness of breath or coughing No abdominal pain, nausea or vomiting No urinary symptoms PMFSH Medical History delivery delivered Lipoma of back Osteoarthritis Anesthesia complication Pulmonary nodules Hyperlipidemia Chronic cluster headache, intractable Seizure disorder Migraine Acid reflux HTN (hypertension) Family History Mother Alcohol abuse FH: mental illness Father Alcohol abuse Brother Alcohol abuse FH: mental illness Maternal Grandfather Alcohol abuse Sister Alcohol abuse FH: mental illness Maternal Grandmother FH: mental illness Surgical History History of esophagogastroduodenoscopy (EGD) H/O colonoscopy History of carpal tunnel release Hx of hysterectomy Social History Household Members: Children Household Members Other:: patient lives with her son, sister lives below Housing: House Housing Other:: multifamily Are you a primary rn managed care to a significant other at home: No Do you presently have visiting nurse or other home services: Yes (VNA, speech therapy,PT/OT) Alcohol intake: never Patient Tobacco Use Status: Former Tobacco user Tobacco use type: Cigarette Years Smoked: 9 e-Cigarette/Vaping Use: Never Used Second Hand Smoke Exposure: No Use of substances other than those prescribed or required for medical reasons: No Have you been hit, kicked, punched, or otherwise hurt by someone within the past year? If so, by whom?: No Do you feel safe in your current relationship?: No Current Relationship Is there a partner from a previous relationship who is making you feel unsafe now?: No Are you made to feel afraid or neglected: No Spiritual Healthcare Practices: no Caodaism Healthcare Practices: no-Hinduism Cultural Healthcare Practices: no Are you DNR?: No Advance Directives: Yes (states sister is HCP) Advance Directives Information Provided: Yes Advance Directives on File: Yes Advance Directives Date on File: 07/19/09 Do you have a plan to hurt others: No Plan Recently lost weight without trying: No How much weight loss: Not applicable Eating poorly because of decreased appetite: No Nutrition screen score: 0 Nutrition Risks: No Nutritional Risk Patient : No FDLMP: n/a : No Poor oral hygiene: No service: No 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al status: disabled 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al exposures/hazards: No Cognitive needs: No Hearing needs: No Vision needs: Yes Meds Allergies Allergy/AdvReac Type Severity Reaction Status Date / Time baclofen Allergy Intermediate Dizziness/n Verified 11/13/24 07:56 ausea latex [LATEX] Allergy Intermediate Rash Verified 11/13/24 07:56 codeine [Codeine] AdvReac Intermediate Nausea and Verified 11/13/24 07:56 Vomiting Active Medications: Current Medications Acetaminophen (Acetaminophen 325 Mg Tablet) 650 mg PO Q6H PRN PRN Reason: Pain, Mild 1-3,fever,headache Amlodipine Besylate (Amlodipine Besylate 10 Mg Tablet) 10 mg PO DAILY [facility] Aspirin (Aspirin 325 Mg Tablet) 325 mg PO BID [facility] Atorvastatin Calcium (Atorvastatin Calcium 10 Mg Tablet) 10 mg PO DAILY [facility] Calcium Carbonate (Calcium Carbonate 750 Mg Tab.Chew) 750 mg PO Q4H PRN PRN Reason: Heartburn Celecoxib (Celecoxib 200 Mg Capsule) 200 mg PO BID [facility] Divalproex Sodium (Divalproex Sodium 500 Mg Tablet.Dr) 500 mg PO BID [facility] Docusate Sodium (Docusate Sodium 100 Mg Capsule) 100 mg PO BID [facility] Fentanyl (Fentanyl Citrate/Pf 100 Mcg/2 Ml Vial) 25 mcg IVPUSH Q5M PRN PRN Reason: Pain, Moderate to Severe (Pain Scale 4-10) Stop: 11/17/24 16:19 Gabapentin (Gabapentin 600 Mg Tablet) 1,200 mg PO TID [facility] Last Admin: 11/17/24 14:52 Dose: 1,200 mg Hydromorphone HCl (Hydromorphone Hcl 2 Mg Tablet) 2 mg PO Q4H PRN PRN Reason: Pain, Mild 1-3,fever,headache Hydromorphone HCl (Hydromorphone Hcl 2 Mg Tablet) 4 mg PO Q4H PRN PRN Reason: Pain, Moderate(Pain Scale 4-6) Lactated Ringer's (Lr) 1,000 mls @ 100 mls/hr IVCONT .Q10H [facility] Last Admin: 11/17/24 14:59 Dose: Not Given Lactated Ringer's (Lr) 1,000 mls @ 100 mls/hr IVCONT .Q10H [facility] Last Admin: 11/17/24 14:54 Dose: 100 mls/hr Cefazolin Sodium/Dextrose (Ancef) 2 gm in 50 mls @ 100 mls/hr IV Q8H [facility] Lamotrigine (Lamotrigine 100 Mg Tablet) 200 mg PO BID [facility] Lisinopril (Lisinopril 20 Mg Tablet) 20 mg PO DAILY [facility] Magnesium Hydroxide (Milk Of Magnesia 30 Ml Oral.Susp) 30 ml PO DAILY PRN PRN Reason: Constipation Meclizine HCl (Meclizine Hcl 25 Mg Tablet) 25 mg PO QID PRN PRN Reason: dizziness Melatonin (Melatonin 3 Mg Tablet) 6 mg PO BEDTIME PRN PRN Reason: Insomnia Methocarbamol (Methocarbamol 500 Mg Tablet) 500 mg PO BEDTIME [facility] Multivitamins/Vitamin C (Multivitamin Tablet) 1 tab PO DAILY [facility] Omeprazole (Omeprazole 40 Mg Capsule.Dr) 40 mg PO DAILY@0630 [facility] Ondansetron HCl (Ondansetron Hcl 4 Mg/2 Ml Vial) 4 mg IVPUSH Q8H PRN PRN Reason: Nausea and Vomiting Propranolol HCl (Propranolol Hcl 40 Mg Tablet) 40 mg PO BID [facility]; Protocol Sodium Chloride (0.9 % Sodium Chloride Flush 3 Ml Syringe) 3 ml IVFLUSH QSHIFT [facility] Last Admin: 11/17/24 15:14 Dose: Not Given Home Medications ?Medication ?Instructions ?Recorded ?Confirmed ?Last Taken ?Type divalproex 250 mg tablet,delayed 500 mg PO BID 09/23/21 11/17/24 11/17/24 History release lamotrigine 25 mg tablet 200 mg PO BID 02/12/23 11/17/24 11/17/24 History B-complex with vitamin C 1 tab PO DAILY 03/06/24 11/17/24 11/10/24 History gabapentin 600 mg tablet 1,200 mg PO TID 03/06/24 11/17/24 11/17/24 History amlodipine 10 mg-benazepril 20 mg 1 cap PO DAILY 10/21/24 11/17/24 11/17/24 History capsule atorvastatin 10 mg tablet 10 mg PO DAILY 10/21/24 11/17/24 11/17/24 History omeprazole 40 mg capsule,delayed 40 mg PO DAILY@0630 10/21/24 11/17/24 11/17/24 History release meclizine 25 mg tablet 25 mg PO QID PRN dizziness 10/29/24 11/17/24 Unknown History Physical Exam Vital Signs and Narrative: Vital Signs: Last Vital Signs Temp 97.0 F 11/17/24 14:59 Pulse 59 11/17/24 14:59 Resp 16 11/17/24 14:59 BP 100/56 L 11/17/24 14:59 Pulse Ox 98 11/17/24 14:59 O2 Del Method Room Air 11/17/24 14:59 O2 Flow Rate 6 11/17/24 13:44 BMI result Body Mass Index 35.9 Const: Other: Constitutional : Awake, interactive, not in distress Neck : Normal inspection, Supple Cardiovascular : RRR, no JVP, no lower extremity edema Respiratory : good bilateral air entry, no crackles, wheezes or rhonchi Gastrointestinal: soft, lax, Normal bowel sounds, Non tender Skin : Warm, Dry Extremities: Left knee in cast, no erythema, normal peripheral pulses Neurological : Alert & oriented x3, No focal deficit , Assessment and Plan (1) Seizure disorder: Status: Acute Plan a 54-year-old female with a PMH significant for?HTN, HLD, seizure disorder, GERD, migraines, and mood disorder who presents to the hospital for elective Lt knee Arthroplasty. Left Knee Arthroplasty Orthopedic team following PT pain control Seizure disorder Continue Depakote and lamotrigine HTN Continue amlodipine-benazepril, propranolol HTN Continue statin Migraines Continue gabapentin GERD PPI Full Code DVT Prophylaxis: SCDs Thank you for the consult will follow with you as needed. please contact hospitalist team for
[2024-11-17] MEDS: Aspirin 325 MG TABLET PO ×2 (17:03→20:44)
[2024-11-17] MEDS: ceFAZolin Sodium/Dextrose,Iso 2 GM/50 ML PIGGYBACK IV (17:04)
[2024-11-17] MEDS: HYDROmorphone HCl 2 MG TABLET 4 MG PO (19:52)
[2024-11-17] MEDS: Docusate Sodium 100 MG CAPSULE PO (20:37)
[2024-11-17] MEDS: Celecoxib 200 MG CAPSULE PO (20:37)
[2024-11-17] MEDS: Propranolol HCL 40 MG TABLET PO (20:38)
[2024-11-17] MEDS: methocarbamoL 500 MG TABLET PO (20:38)
[2024-11-17] MEDS: lamoTRIgine 100 MG TABLET 200 MG PO (20:38)
[2024-11-17] MEDS: Divalproex Sodium 500 MG TABLET.DR PO (20:38)
[2024-11-18] VITALS (7 sets, daily range): BP systolic 95–135; BP diastolic 50–64; PULSE 66–80; RESP 14–18; TEMP 36.4–37.1; O2SAT 94–98
[2024-11-18] MEDS: ceFAZolin Sodium/Dextrose,Iso 2 GM/50 ML PIGGYBACK IV ×3 (01:12→18:09)
[2024-11-18] MEDS: Omeprazole 40 MG CAPSULE.DR PO (05:37)
[2024-11-18 05:45] LABS: MANUAL DIFF FLAG NO
[2024-11-18 05:49] LABS: Basophils Percent Auto 0.3 % (0-2); Hematocrit 29.3 % (37.0-47.0); Hemoglobin 9.8 g/dl (12.0-16.0); Imm Gran Abs Auto 0.05 X10*3/uL (0.00-0.03); Imm Gran Pct Auto 0.5 % (0.0-0.4); Lymphocytes Percent Auto 20.2 % (20-40); Mean Corpuscular HGB Conc 33.4 g/dl (31.0-35.0); Mean Corpuscular Hemoglobin 31.7 pg (27.0-33.0); Mean Corpuscular Volume 94.8 fL (80.0-98.0); Mean Platelet Volume 9.2 fL (9.4-12.3); Monocytes Absolute Auto 0.8 X10*3/uL (0.1-1.2); Monocytes Percent Auto 7.6 % (2-11); Neutrophils Absolute Auto 7.2 x10*3/uL (2.0-8.3); Neutrophils Percent Auto 71.4 % (45-73); Platelet Count 291 X10*3/uL (160-400); Red Blood Count 3.09 X10*6/uL (4.20-5.50); White Blood Count 10.1 X10*3/uL (4.8-10.8)
[2024-11-18 06:02] LABS: Anion Gap 13 (12-20); Blood Urea Nitrogen 12 mg/dL (9-16); Calcium 9.6 mg/dL (8.4-10.2); Carbon Dioxide 28 mmol/L (22-29); Chloride 102 mmol/L (96-108); Creatinine Clr Calc Pharmacy 104.5; Estimated Glomerular Filt Rate > 60; Glucose Fasting 147 mg/dL (60-99); Potassium 4.2 mmol/L (3.3-5.1); Sodium 139 mmol/L (135-145)
[2024-11-18] MEDS: Gabapentin 600 MG TABLET 1200 MG PO ×3 (08:10→19:43)
[2024-11-18] MEDS: Atorvastatin Calcium 10 MG TABLET PO (08:10)
[2024-11-18] MEDS: Docusate Sodium 100 MG CAPSULE PO ×2 (08:10→19:43)
[2024-11-18] MEDS: Divalproex Sodium 500 MG TABLET.DR PO ×2 (08:11→19:43)
[2024-11-18] MEDS: Multivitamin TABLET 1 TAB PO (08:11)
[2024-11-18] MEDS: HYDROmorphone HCl 2 MG TABLET 4 MG PO ×2 (08:11→15:45)
[2024-11-18] MEDS: Celecoxib 200 MG CAPSULE PO ×2 (08:11→19:43)
[2024-11-18] MEDS: amLODIPine Besylate 10 MG TABLET PO (08:11)
[2024-11-18] MEDS: Propranolol HCL 40 MG TABLET PO (08:11)
[2024-11-18] MEDS: lisinopriL 20 MG TABLET PO (08:12)
[2024-11-18] MEDS: lamoTRIgine 100 MG TABLET 200 MG PO ×2 (08:14→19:42)
[2024-11-18] MEDS: Aspirin 325 MG TABLET PO ×2 (08:17→19:41)
--- NOTE | 2024-11-18 09:29 | MHC.CM.PN ---
PT LIVES WITH SON SHE IS ACTIVE WITH [facility] PT WILL HAVE OWN TRANSPORTATION HOME IF THAT IS THE DC PLAN PT S SISTER LIVES DOWNSTAIRS AND DOES GET PTS MEDS AND TAKE HER TO MD APPTS AWAIT PT DAVID PT WOULD AGREE TO STR IF RECOMMENDED
[2024-11-18] MEDS: Lactated Ringers 1,000 ML 100 ML IVCONT (10:24)
--- NOTE | 2024-11-18 11:34 | PM.PNORT ---
Subjective Subjective Date of Service: 11/18/24 Interval history: POD 1 s/p LT TKA no overnight events resting in recliner-worked with PT this AM denies sob, cp, palpitations Physical Exam Vital Signs: Vital Signs: Last Vital Signs Temp 98.8 F 11/18/24 08:04 Pulse 80 11/18/24 08:04 Resp 18 11/18/24 08:04 BP 135/60 11/18/24 08:04 Pulse Ox 98 11/18/24 08:04 O2 Del Method Room Air 11/18/24 08:04 O2 Flow Rate 6 11/17/24 13:44 BMI result Body Mass Index 35.9 Const: General: cooperative, healthy appearing and no acute distress Resp: Effort & Inspection: normal respiratory effort and able to speak in complete sentences Cardio: Rate: regular rate Peripheral pulses: Peripheral pulses 2+ throughout GI: Palpation (GI): Soft to palpation Skin: General skin exam: no rashes or lesions noted Extrem: Other: left knee bandage intact. She is able to dorsi and plantar flex. NVI. Procedures Date of Service Date of Service: 11/18/24 Progress Note: A&P Assessment and plan (1) History of total left knee replacement: Status: Acute Assessment and Plan: Pain mgmnt PT for LT TKA ASA for DVT PPX Dispo: STR vs Home due to lack of support at home Time Spent With Patient Time: Total time managing care of this patient today ____ minutes. Quality Stroke Does the patient have a stroke diagnosis?: No VTE Prior VTE?: No VTE Risk Level:: Surgical - very high VTE Device Contraindication: N/A - Device Ordered VTE Drug Contraindication: N/A - Med Ordered
--- NOTE | 2024-11-18 11:37 | P.DS_ITS ---
DS: Providers Provider Date of Service: 11/19/24 Date of discharge: 11/19/24 Primary care physician: Whit Thakur CNP Consults: 11/17/24 14:24 Consult to Hospitalist Routine Comment: Consulting Provider: [facility] [place] Hospitalists Reason For Exam: Routine medical management DS: Diagnosis Discharge Diagnosis (1) History of total left knee replacement: Status: Acute DS: Summary Hospital Course Hospital Course: The patient underwent a successful Left total knee arthroplasty on 11/17/[address] Vega, was transferred to PACU and then to the floor to recover. During their stay, their vitals were stable, afebrile at 97.3. Labs were unremarkable, H/H 9.2/27.8 . POD 1 she was started on ASA 325mg tabs po bid for DVT ppx, they also received Physical Therapy services twice a day. Physical therapy should include gait training, ROM to tolerance and quad strength. She is WBAT. Prior to discharge, her dressing was clean dry and intact. The Aquacel dressing should remain intact and dry at all times. Any concerns with the dressing, please contact orthopedic office. No showering. The plan is to be discharged Time Attestation Discharge Coordination Time (in mins): 30 Quality: Safe Use of Opioids Does Pt have an Active Cancer Diagnosis on the Problem List?: No Quality: Stroke Does the patient have a stroke diagnosis?: No Physical Exam Vital Signs: Vital Signs: Last Vital Signs Temp 98.8 F 11/18/24 08:04 Pulse 80 11/18/24 08:04 Resp 18 11/18/24 08:04 BP 135/60 11/18/24 08:04 Pulse Ox 98 11/18/24 08:04 O2 Del Method Room Air 11/18/24 08:04 O2 Flow Rate 6 11/17/24 13:44 BMI result Body Mass Index 35.9 DS: Data Data Completed and Pending Completed studies during hospitalization [Text1]: Procedures Repair Face Skin, External Approach (10/29/24) Pending studies at discharge: Pending at discharge 11/17/24 12:38 Surgical [PTH] Routine Labs on day of discharge: Laboratory Results - last 24 hr 11/18/24 05:21 WBC 10.1 RBC 3.09 L D Hgb 9.8 L D Hct 29.3 L D MCV 94.8 MCH 31.7 MCHC 33.4 RDW 13.0 Plt Count 291 D MPV 9.2 L Immature Gran % (Auto) 0.5 H Neut % (Auto) 71.4 Lymph % (Auto) 20.2 Gilchrist % (Auto) 7.6 Eos % (Auto) 0.0 Baso % (Auto) 0.3 Lymph # (Auto) 2.0 Gilchrist # (Auto) 0.8 Eos # (Auto) 0.0 Baso # (Auto) 0.0 Abs Immat Gran (auto) 0.05 H Absolute Neuts (auto) 7.2 Absolute Nucleated RBC 0.000 Nucleated RBC % (auto) 0.0 Sodium 139 Potassium 4.2 Chloride 102 Carbon Dioxide 28 Anion Gap 13 BUN 12 Creatinine 0.68 Estim Creat Clear Calc 104.5 Estimated GFR > 60 Fasting Glucose 147 H Calcium 9.6 Discharge Plan Discharge Patient Disposition: [facility] Referrals: [facility] [Other] - 1 Week Ana Flores PA-C [Physician Director Process Engineering] - 12/04/24 12:30 pm Discharge Medications: New celecoxib 200 mg Capsule 200 mg PO BID 30 Days Qty: 60 0RF methocarbamol 500 mg Tablet 500 mg PO BEDTIME 7 Days Qty: 7 0RF acetaminophen 325 mg Tablet 650 mg PO Q6H PRN (Reason: Pain, Mild 1-3,Fever,Headache) 30 Days Qty: 240 0RF aspirin 325 mg Tablet 325 mg PO BID 42 Days Qty: 84 0RF docusate sodium 100 mg Capsule 100 mg PO BID 7 Days Qty: 14 0RF [facility] .ROUTE .MEDSUPPLY Qty: 1 0RF Rx Instructions: Folding front wheeled walker propranolol 40 mg tablet 40 mg PO BID Qty: 180 1RF atorvastatin 10 mg tablet 10 mg PO DAILY amlodipine-benazepril 10-20 mg capsule 1 cap PO DAILY meclizine 25 mg tablet 25 mg PO QID PRN (Reason: dizziness) ondansetron 4 mg tablet,disintegrating 4 mg PO TID PRN (Reason: nausea and vomiting) 5 Days Qty: 10 0RF B-complex with vitamin C Tablet 1 tab PO DAILY divalproex 250 mg tablet,delayed release (DR/EC) 500 mg PO BID lamotrigine 25 mg tablet 200 mg PO BID gabapentin 600 mg tablet 1,200 mg PO TID No Action omeprazole 40 mg capsule,delayed release(DR/EC) 40 mg PO DAILY@0630 90 Days Qty: 90 1RF Diet: Advance to usual diet Activity on Discharge: Use cane or walker Activity Restrictions/Additional Instructions: Physical Therapy for ROM 0-120, quad strength, gait training. Use walker for ambulation Limit stair climbing, No shower, No tub bath, No driving Continue Aspirin x 6 weeks Keep Aquacel dressing clean, dry and intact. Follow up with orthopedics in 2 weeks Print Language: Lithuanian
[2024-11-18] MEDS: Acetaminophen 325 MG TABLET 650 MG PO (18:09)
[2024-11-18] MEDS: Acetaminophen 1,000 MG/100 ML PIGGYBACK 400 MG IV (19:37)
[2024-11-18] MEDS: methocarbamoL 500 MG TABLET PO (19:44)
[2024-11-18] MEDS: Ketorolac Tromethamine 15 MG/ML VIAL IVPUSH (23:54)
[2024-11-19] VITALS: BP 113/54; PULSE 65; RESP 17; TEMP 36.7; O2SAT 93
[2024-11-19] MEDS: ceFAZolin Sodium/Dextrose,Iso 2 GM/50 ML PIGGYBACK IV ×2 (00:58→09:46)
[2024-11-19] MEDS: Lactated Ringers 1,000 ML 100 ML IVCONT (01:04)
[2024-11-19] MEDS: Acetaminophen 1,000 MG/100 ML PIGGYBACK 400 MG IV ×3 (01:40→12:57)
[2024-11-19 04:00] VITALS: BP 130/65; PULSE 77; RESP 18; TEMP 36.4; O2SAT 93
[2024-11-19] MEDS: Omeprazole 40 MG CAPSULE.DR PO (05:45)
[2024-11-19 06:39] LABS: MANUAL DIFF FLAG NO
[2024-11-19 07:02] LABS: Anion Gap 10 (12-20); Blood Urea Nitrogen 9 mg/dL (9-16); Calcium 9.2 mg/dL (8.4-10.2); Carbon Dioxide 31 mmol/L (22-29); Chloride 103 mmol/L (96-108); Creatinine Clr Calc Pharmacy 107.6; Estimated Glomerular Filt Rate > 60; Glucose Fasting 94 mg/dL (60-99); Potassium 4.1 mmol/L (3.3-5.1); Sodium 140 mmol/L (135-145)
--- NOTE | 2024-11-19 07:22 | PM.PNORT ---
Subjective Subjective Date of Service: 11/19/24 Interval history: POD2 s/p LTKA Patient is resting in bed comfortably Reported uncontrolled pain overnight Medication adjustments made No additional complaints Physical Exam Vital Signs: Vital Signs: Last Vital Signs Temp 97.5 F 11/19/24 04:00 Pulse 77 11/19/24 04:00 Resp 18 11/19/24 04:00 BP 130/65 11/19/24 04:00 Pulse Ox 93 11/19/24 04:00 O2 Del Method Room Air 11/19/24 04:00 O2 Flow Rate 6 11/17/24 13:44 BMI result Body Mass Index 35.9 Const: General: cooperative, healthy appearing and no acute distress Resp: Effort & Inspection: normal respiratory effort and able to speak in complete sentences Cardio: Rate: regular rate Peripheral pulses: Peripheral pulses 2+ throughout GI: Palpation (GI): Soft to palpation Skin: Lesions: no lesions Rashes: no rashes Extrem: Other: left knee dressing is c/d/i. Able to dorsi/plantar flex. Calf is supple and nontender. Sensation intact. Pedal pulse intact. Procedures Date of Service Date of Service: 11/19/24 Progress Note: A&P Assessment and plan (1) History of total left knee replacement: Status: Acute Assessment and Plan: Pain mgmnt PT for LT TKA ASA for DVT PPX Dispo: STR: due to lack of support at home Time Spent With Patient Time: Total time managing care of this patient today ____ minutes. Quality Stroke Does the patient have a stroke diagnosis?: No VTE Prior VTE?: No VTE Risk Level:: Surgical - very high VTE Device Contraindication: N/A - Device Ordered VTE Drug Contraindication: N/A - Med Ordered
[2024-11-19 07:29] LABS: Basophils Absolute Auto 0.1 X10*3/uL (0.0-0.2); Basophils Percent Auto 0.6 % (0-2); Eosinophils Absolute Auto 0.2 X10*3/uL (0.0-0.4); Hematocrit 27.8 % (37.0-47.0); Hemoglobin 9.2 g/dl (12.0-16.0); Imm Gran Abs Auto 0.03 X10*3/uL (0.00-0.03); Imm Gran Pct Auto 0.3 % (0.0-0.4); Lymphocytes Absolute Auto 3.2 X10*3/uL (1.2-4.9); Lymphocytes Percent Auto 33.7 % (20-40); Mean Corpuscular HGB Conc 33.1 g/dl (31.0-35.0); Mean Corpuscular Hemoglobin 31.3 pg (27.0-33.0); Mean Corpuscular Volume 94.6 fL (80.0-98.0); Mean Platelet Volume 9.6 fL (9.4-12.3); Monocytes Absolute Auto 0.8 X10*3/uL (0.1-1.2); Monocytes Percent Auto 8.8 % (2-11); Neutrophils Absolute Auto 5.2 x10*3/uL (2.0-8.3); Neutrophils Percent Auto 54.6 % (45-73); Platelet Count 291 X10*3/uL (160-400); Red Blood Count 2.94 X10*6/uL (4.20-5.50); Red Cell Distribution Width 13.2 % (11.0-16.0); White Blood Count 9.6 X10*3/uL (4.8-10.8)
[2024-11-19 07:32] VITALS: BP 134/70; PULSE 79; RESP 18; TEMP 37; O2SAT 93
[2024-11-19] MEDS: lamoTRIgine 100 MG TABLET 200 MG PO (07:42)
[2024-11-19] MEDS: Aspirin 325 MG TABLET PO (07:45)
[2024-11-19] MEDS: Propranolol HCL 40 MG TABLET PO (07:45)
[2024-11-19] MEDS: lisinopriL 20 MG TABLET PO (07:45)
[2024-11-19] MEDS: amLODIPine Besylate 10 MG TABLET PO (07:46)
[2024-11-19] MEDS: Docusate Sodium 100 MG CAPSULE PO (07:46)
[2024-11-19] MEDS: Multivitamin TABLET 1 TAB PO (07:47)
[2024-11-19] MEDS: Gabapentin 600 MG TABLET 1200 MG PO ×2 (07:47→14:45)
[2024-11-19] MEDS: Atorvastatin Calcium 10 MG TABLET PO (07:47)
[2024-11-19] MEDS: Divalproex Sodium 500 MG TABLET.DR PO (07:47)
[2024-11-19] MEDS: Celecoxib 200 MG CAPSULE PO (07:47)
[2024-11-19] MEDS: HYDROmorphone HCl 2 MG TABLET 4 MG PO (09:47)
[2024-11-19 11:34] VITALS: BP 127/61; PULSE 76; O2SAT 96
[2024-11-19 11:53] VITALS: BP 99/52; PULSE 62; RESP 17; TEMP 36.3; O2SAT 93
--- NOTE | 2024-11-19 12:31 | MHC.CM.PN ---
pt dcd today to [facility] at [facility]
--- NOTE | 2024-11-19 12:37 | MHC.CM.PN ---
auth number is [id number]
[2024-11-19] MEDS: HYDROmorphone HCl 2 MG TABLET PO (14:46)
[2024-11-19 15:25] VITALS: BP 117/56; PULSE 72; RESP 17; TEMP 36.7; O2SAT 95
== END 2024-11-19 16:09 | disposition skilled nursing facility (03) ==
LOC: HO.SSS 08:57 → HO.S3 13:55
PROVIDERS: Orthopaedic Surgery; PCP Nurse Practitioner Family; Visit Provider Physician Assistant
PROC: (CPT 27447; principal; 2024-11-17 10:30)
DX: M17.12 Unilateral primary osteoarthritis, left knee (principal); M25.562 Pain in left knee; G40.909 Epilepsy, unspecified, not intractable, without status epilepticus; I10 Essential (primary) hypertension; E78.5 Hyperlipidemia, unspecified; R91.8 Other nonspecific abnormal finding of lung field; K21.9 Gastro-esophageal reflux disease without esophagitis; G43.909 Migraine, unspecified, not intractable, without status migrainosus; G44.021 Chronic cluster headache, intractable; F39 Unspecified mood [affective] disorder; Z87.81 Personal history of (healed) traumatic fracture; Z91.81 History of falling; Z79.899 Other long term (current) drug therapy; Z88.5 Allergy status to narcotic agent; Z88.8 Allergy status to other drugs, medicaments and biological substances; Z91.040 Latex allergy status; Z98.890 Other specified postprocedural states; Z87.891 Personal history of nicotine dependence
CPT/HCPCS: 27447; 36415; 80048; 85025; 86850; 86900; 86901; 87640; 87641; 88305; 88311; 93005; 97110; 97116; 97162; 97535; A6260; C1776; J0131; J0665; J0690; J1100; J1885; J2003; J2250; J2704; J3370; J7120

== ENCOUNTER → 2024-11-17 08:46 | Outpatient (BNV) | payer OTHER, SELFPAY | PROVIDERS: PCP Nurse Practitioner Family; Visit Provider Student in an Organized Health Care Education/Training Program | DX: G40.909 Epilepsy, unspecified, not intractable, without status epilepticus (principal); I10 Essential (primary) hypertension; G43.909 Migraine, unspecified, not intractable, without status migrainosus; K21.9 Gastro-esophageal reflux disease without esophagitis | CPT/HCPCS: 99213 ==

== ENCOUNTER → 2024-11-17 08:46 | Outpatient (BNV) | payer OTHER, SELFPAY | PROVIDERS: PCP Nurse Practitioner Family; Visit Provider Orthopaedic Surgery | DX: Z96.652 Presence of left artificial knee joint (principal) | CPT/HCPCS: 27447; 99024 ==

== ENCOUNTER 2024-12-04 08:27 | Outpatient (REF) | payer OTHER, SELFPAY ==
--- NOTE | ~2024-12-04 | XR_ITS ---
EXAMINATION: XR KNEE, LEFT CLINICAL INFORMATION: M25.569 - Pain in unspecified knee COMPARISON: None available. TECHNIQUE: AP view bilateral knees standing, lateral and patellofemoral views left knee. FINDINGS: Right Knee: No fracture or dislocation. No bone lesion. Chondrocalcinosis noted in the medial and lateral compartments. Mild medial compartment joint space narrowing. Normal alignment. Normal soft tissues. Left Knee: No fracture, dislocation, or suspicious bone lesion. Total left knee arthroplasty. Tibial and femoral components intact, in anatomic alignment, well seated, without complication. There is been patellar resurfacing. Normal patellar alignment. There are ventral skin prashant. There is ventral soft tissue swelling. XR/XR knee LT 3V IMPRESSION: 1. Total left arthroplasty LEFT knee without complication. 2. Chondrocalcinosis RIGHT knee with mild medial compartment narrowing. Electronically signed by: Rafa Vivas MD 12/05/2024 08:15 AM EDT
--- OUTSIDE RECORDS SUMMARY | 2024-12-04 08:44 | XMS_ITS | Encounter Summary ---
Author Organization [facility] Address [address] [place] [address] Care Team Providers Care Acls Nurse Name Role Phone Whit Thakur Primary Care Provider [phone] Reason for Visit * Reason Onset Date Comments request to speak with nurse 04/18/2021 Dr Mumtaz cochran med question 04/18/2021 Encounter Details Date Type Department Care Team (Late st Contact Info) Description 04/18/2021 Telephone [facility] [address] [place] [phone] Telephone Intake, Staff request to speak [...] is looking for a facility/office in the [facility]. She will speak with her pcp about potential clinic. She didn't have any other questions at this time. #[phone] * Telephone Encounter - Sharon Bay RN - 04/18/2021 3:09 PM EDT Pt called to report that the PCP refused to prescribe the diclofenac for the pt that is a neurologymedication. The pt stated that her previous neurologist Dr Arias from [facility] is who originally prescribed it for [...] call back from nurse Katherine Keita # [phone] Please route your response back to the [facility] Neu[facility] Admin Staff Pool. Thank you documented in this encounter Plan of Treatment Upcoming Encounters Date Type Department Care Team (Late st Contact Info) Description 12/09/2024 11:00 AM EDT Office Visit [facility] [address] [place] [id number] Keith Conrad MD [address] [place] [phone] documented as of this encounter Visit Diagnoses Not on filedocumented in this encounter Care Teams Acls Nurse Relationship Specialty Start Date End Date Whit Thakur [address] [place] [id number] PCP - General Family Medicine 10/06/24 documented as of this encounter
== END 2024-12-04 08:28 | disposition home or self-care (01) ==
LOC: HO.HOSX 08:27
PROVIDERS: Visit Provider Physician Assistant
DX: Z48.02 Encounter for removal of sutures (principal); M25.562 Pain in left knee; Z96.652 Presence of left artificial knee joint
CPT/HCPCS: 73562; 99212

== ENCOUNTER 2024-12-04 12:25 | Outpatient (AMB) | payer OTHER, SELFPAY ==
--- NOTE | 2024-12-04 14:33 | A.OFFVIS_ITS ---
Intake Visit Reasons: 2WKPO: L TKA w/ 11/17/24 Intake Note: Kenya is a 54 year old female who presents today for a post op appointment s/p left total knee arthroplasty 11/17/24 Patient reports she is doing well and she is working with PT. She has noticed some swelling in her knee. Allergies baclofen Allergy (Intermediate, Verified 12/04/24 14:39) Dizziness/nausea latex [LATEX] Allergy (Intermediate, Verified 12/04/24 14:39) Rash codeine [Codeine] Adverse Reaction (Intermediate, Verified 12/04/24 14:39) Nausea and Vomiting HPI HPI 2WKPO: L TKA w/DR 11/17/24: Details: Ms. Crespo is a 54-year-old female that presents to the office today status post left total knee arthroplasty performed on 11/17/[address] Vega. She is residing in [facility] at this time. She is receiving physical therapy services. She presents to the office today in a wheelchair. She reports some soreness but overall is doing very well. [facility] Medical History (Updated 11/21/24 @ 00:01 by Adonis Noguera) delivery delivered Lipoma of back Osteoarthritis Anesthesia complication Pulmonary nodules Hyperlipidemia Chronic cluster headache, intractable Seizure disorder Migraine Acid reflux HTN (hypertension) Surgical History (Updated 12/04/24 @ 15:46 by Ana Flores PA-C) Status post total left knee replacement History of esophagogastroduodenoscopy (EGD) H/O colonoscopy History of carpal tunnel release Hx of hysterectomy Family History Mother Alcohol abuse FH: mental illness Father Alcohol abuse Brother Alcohol abuse FH: mental illness Maternal Grandfather Alcohol abuse Sister Alcohol abuse FH: mental illness Maternal Grandmother FH: mental illness Social History Household Members: Children Household Members Other:: patient lives with her son, sister lives below Housing: House Housing Other:: multifamily Are you a primary eye care professional to a significant other at home: No Do you presently have visiting nurse or other home services: Yes (VNA, speech therapy,PT/OT) Alcohol intake: never Patient Tobacco Use Status: Former Tobacco user Tobacco use type: Cigarette Years Smoked: 9 e-Cigarette/Vaping Use: Never Used Second Hand Smoke Exposure: No Advance Directives Date on File: 07/19/09 service: No 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al status: disabled 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 Aftab intact. No surrounding erythema or drainage. No signs of infection. Range of motion is 10-80 degrees. NVI. Assessment & Plan Assessment & Plan (1) Status post total left knee replacement: Code(s): Z96.652 - Presence of left artificial knee joint Category: Surgical Plan Ms. Crespo is a 54-year-old female that presents to the office today status post left total knee arthroplasty performed on 11/17/[address] Vega. She is residing in [facility] at this time. She is receiving physical therapy services. She presents to the office today in a wheelchair. She reports some soreness but overall is doing very well. While the office today, aftab were removed and Steri-Strips were applied. She will continue to work with physical therapy on range of motion, glute core quad strengthening and gait training. She will follow up with Dr. Vega in 4 weeks, sooner if needed. X-rays of the left knee which were obtained while in the office today and were reviewed by me, Ana Flores PA-C, revealed left total knee arthroplasty with satisfactory alignment. Orders: Orders XR knee LT 3V Today M25.569 - Pain in unspecified knee Coding Level of Care Code Global (08262) Diagnoses Status post total left knee replacement Z96.652
== END 2024-12-04 14:59 | disposition home or self-care (01) ==
LOC: HO.HOS 12:26
PROVIDERS: PCP Nurse Practitioner Family; Visit Provider Physician Assistant
DX: Z96.652 Presence of left artificial knee joint (principal)
CPT/HCPCS: 99024

== ENCOUNTER → 2024-12-04 14:22 | Outpatient (BNV) | payer OTHER, SELFPAY | PROVIDERS: Visit Provider Radiology Diagnostic Radiology | DX: Z96.652 Presence of left artificial knee joint (principal); M11.261 Other chondrocalcinosis, right knee | CPT/HCPCS: 73562 ==

== ENCOUNTER 2024-12-25 12:26 | Outpatient (AMB) | payer OTHER, SELFPAY ==
[2024-12-25 12:37] VITALS: BMI 35.9
--- NOTE | 2024-12-25 12:37 | MHC.OFFVIS ---
Vital Signs 12/25/24 12:37 Height 5 ft 4 in Weight 209 lb BMI 35.9 Intake Visit Reasons: 6WKPO: L TKA w/ 11/17/24 Intake Note: Kenya is a 54 year old female who presents today post-operatively after undergoing a left total knee arthroplasty on 11/17/24. The patient reports mild to moderate discomfort in her left knee. She continues with her physical therapy exercises. She takes Tylenol which gives her fairly good relief. She is no longer taking narcotics for her discomfort. Allergies baclofen Allergy (Intermediate, Verified 12/25/24 12:44) Dizziness/nausea latex (LATEX) Allergy (Intermediate, Verified 12/25/24 12:44) Rash codeine (Codeine) Adverse Reaction (Intermediate, Verified 12/25/24 12:44) Nausea and Vomiting Medication List - Last Reviewed 12/25/24 by MARVEL Wilson acetaminophen 650 mg (2 x 325 mg) PO Q6H PRN 30 days amlodipine-benazepril 10-20 mg 1 cap PO DAILY 30 days aspirin 325 mg PO BID 42 days atorvastatin 10 mg PO DAILY B-complex with vitamin C 1 tab PO DAILY celecoxib 200 mg PO BID 30 days divalproex 500 mg PO BID docusate sodium 100 mg PO BID 7 days gabapentin 1,200 mg PO TID lamotrigine 200 mg PO BID meclizine 25 mg PO QID PRN methocarbamol 500 mg PO BEDTIME 7 days omeprazole 40 mg PO DAILY ondansetron 4 mg PO TID PRN 5 days propranolol 40 mg PO BID walker Folding front wheeled walker [facility] Medical History (Updated 12/25/24 @ 14:09 by Glenn Vega MD) delivery delivered Lipoma of back Osteoarthritis Anesthesia complication Pulmonary nodules Hyperlipidemia Chronic cluster headache, intractable Seizure disorder Migraine Acid reflux HTN (hypertension) Surgical History (Updated 12/04/24 @ 15:46 by Ana Flores PA-C) Status post total left knee replacement History of esophagogastroduodenoscopy (EGD) H/O colonoscopy History of carpal tunnel release Hx of hysterectomy Family History Mother Alcohol abuse FH: mental illness Father Alcohol abuse Brother Alcohol abuse FH: mental illness Maternal Grandfather Alcohol abuse Sister Alcohol abuse FH: mental illness Maternal Grandmother FH: mental illness Social History Household Members: Children Household Members Other:: patient lives with her son, sister lives below Housing: House Housing Other:: multifamily Are you a primary point of care specialist to a significant other at home: No Do you presently have visiting nurse or other home services: Yes (VNA, speech therapy,PT/OT) Alcohol intake: never Patient Tobacco Use Status: Former Tobacco user Tobacco use type: Cigarette Years Smoked: 9 e-Cigarette/Vaping Use: Never Used Second Hand Smoke Exposure: No Advance Directives Date on File: 07/19/09 service: No 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al status: disabled 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 Awad continues to do well after undergoing left total knee replacement surgery on 11/17/2024. She will continue with her physical therapy exercises. She does know to take antibiotics before any dental work. She will contact me prior to her follow-up appointment in 2 months should any questions or concerns arise. Feel free to call me at any time should questions regarding her orthopedic management arise. Coding Level of Care Code Global (89009) Diagnoses Left knee pain M25.562
--- OUTSIDE RECORDS SUMMARY | 2024-12-25 14:45 | XMS_ITS | Encounter Summary ---
Author Organization [facility] Address [address] [place] [address] Care Team Providers Care Remote Control Mirror Installer Name Role Phone Whit Thakur Primary Care Provider [phone] Reason for Visit * Reason Onset Date Comments request to speak with nurse 04/18/2021 Dr Mumtaz cochran med question 04/18/2021 Encounter Details Date Type Department Care Team (Late st Contact Info) Description 04/18/2021 Telephone [facility] [address] [place] [address] Telephone Intake, Staff request to speak [...] is looking for a facility/office in the [facility]. She will speak with her pcp about potential clinic. She didn't have any other questions at this time. #[phone] * Telephone Encounter - Sharon Bay RN - 04/18/2021 3:09 PM EDT Pt called to report that the PCP refused to prescribe the diclofenac for the pt that is a neurologymedication. The pt stated that her previous neurologist Dr Arias from [facility] is who originally prescribed it for her. [...] call back from nurse Katherine Keita # [phone] Please route your response back to the [facility] Neurology Admin Staff Pool. Thank you documented in this encounter Plan of Treatment Upcoming Encounters Date Type Department Care Team (Late st Contact Info) Description 05/25/2025 10:00 AM EST Office Visit [facility] [address] [place] [id number] Jaxon Jimenez PA [address] [place] [phone] documented as of this encounter Visit Diagnoses Not on filedocumented in this encounter Care Teams Remote Control Mirror Installer Relationship Specialty Start Date End Date Whit Thakur [address] [place] [phone] PCP - General Family Medicine 10/06/24 documented as of this encounter
== END 2024-12-25 12:56 | disposition home or self-care (01) ==
LOC: HO.HOS 12:26
PROVIDERS: PCP Nurse Practitioner Family; Visit Provider Orthopaedic Surgery
DX: M25.562 Pain in left knee (principal)
CPT/HCPCS: 99024

== ENCOUNTER → 2024-12-25 12:26 | Outpatient (BNVA) | payer OTHER, SELFPAY | PROVIDERS: PCP Nurse Practitioner Family; Visit Provider Orthopaedic Surgery | DX: M25.562 Pain in left knee (principal); Z96.652 Presence of left artificial knee joint; Z98.890 Other specified postprocedural states | CPT/HCPCS: 99212 ==

== ENCOUNTER 2025-01-06 15:06 | Outpatient (AMB) | payer OTHER, SELFPAY ==
--- NOTE | 2025-01-06 15:08 | A.OFFPC_ITS ---
Vital Signs 01/06/25 15:15 Height 5 ft 4 in Weight 206 lb 2 oz BMI 35.4 BP 116/60 Blood Pressure Location Rt brachial Position Sitting Respiration 16 Pulse 62 Pulse Source Pulse Oximeter Temp 97.9 F Temp Source Oral Pulse Oximetry (%) 95 Oxygen Delivery Method Room Air Intake Visit Reasons: Surgery F/U Intake Note: patient here for surgery follow up Outbound Telemarketer Required: No Is last menstrual period known: No Post menopausal: No Patient : No Allergies baclofen Allergy (Intermediate, Verified 01/06/25 15:24) Dizziness/nausea latex (LATEX) Allergy (Intermediate, Verified 01/06/25 15:24) Rash codeine (Codeine) Adverse Reaction (Intermediate, Verified 01/06/25 15:24) Nausea and Vomiting Medication List - Last Reconciled 01/06/25 by Whit Thakur CNP acetaminophen 650 mg (2 x 325 mg) PO Q6H PRN 30 days amlodipine-benazepril 10-20 mg 1 cap PO DAILY 30 days aspirin 325 mg PO BID 42 days atorvastatin 10 mg PO DAILY B-complex with vitamin C 1 tab PO DAILY divalproex 500 mg PO BID gabapentin 1,200 mg PO TID lamotrigine 200 mg PO BID meclizine 25 mg PO QID PRN omeprazole 40 mg PO DAILY propranolol 40 mg PO BID walker Folding front wheeled walker Tobacco use date assessed: 01/06/25 Dental Screening Dental Screen Date: 01/06/25 Did you have a dental visit in the last 12 months?: No Did you have a dental problem in the last 6 months where you did not have access to dental care?: No Was dental information given to patient?: Patient has dentist HPI HPI Comments History of Present Illness Details 54-year-old female presents for a post o p appointment s/p left total knee arthroplasty 11/17/[address] Vega. Patient reports she is doing well and completed home PT last week She has noticed some swelling in her knee. She reports mild 2/10 intermittent pain and stiffness to the knee especially with increased physical activities. She denies acute symptoms at this time. [facility] Medical History (Updated 12/25/24 @ 14:09 by Glenn Vega MD) delivery delivered Lipoma of back Osteoarthritis Anesthesia complication Pulmonary nodules Hyperlipidemia Chronic cluster headache, intractable Seizure disorder Migraine Acid reflux HTN (hypertension) Surgical History (Updated 12/04/24 @ 15:46 by Ana Flores PA-C) Status post total left knee replacement History of esophagogastroduodenoscopy (EGD) H/O colonoscopy History of carpal tunnel release Hx of hysterectomy Family History Mother Alcohol abuse FH: mental illness Father Alcohol abuse Brother Alcohol abuse FH: mental illness Maternal Grandfather Alcohol abuse Sister Alcohol abuse FH: mental illness Maternal Grandmother FH: mental illness Social History Household Members: Children Household Members Other:: patient lives with her son, sister lives below Housing: House Housing Other:: multifamily Are you a primary career developer to a significant other at home: No Do you presently have visiting nurse or other home services: Yes (VNA, speech therapy,PT/OT) Alcohol intake: never Patient Tobacco Use Status: Former Tobacco user Tobacco use type: Cigarette Years Smoked: 9 e-Cigarette/Vaping Use: Never Used Second Hand Smoke Exposure: No Advance Directives Date on File: 07/19/09 Patient : No service: No 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al status: disabled 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al exposures/hazards: No Cognitive needs: No Hearing needs: No Vision needs: Yes Questionnaire Thrive Questionnaire Date Thrive assessed: 07/07/24 I am a: Patient What is your living situation today?: I have a steady place to live Within the past 12 months, did the food you bought not last and you didn't have the money to get more?: Never true Within the past 12 months, did you worry whether your food would run out before you got money to buy more?: Never true Do you have trouble paying for medicines?: No Do you have trouble getting transportation to medical appointments?: No Do you have trouble paying your heating and electricity bill?: No Do you have trouble taking care of your child, family member or friend?: No Do you have trouble with day-to-day activities such as bathing, preparing meals, shopping, managing finances, etc.?: No Are you currently unemployed and looking for a job?: No Are you interested in more education?: No Please select the resources that you would like help with: None Currently or been in a relationship where the following occur: No concerns reported THRIVE Score: 0 JOHN-7 AMB Questionnaire JOHN-7 Date JOHN - 7 assessed: 03/06/24 Source: Developed by Drs. Sin Chavira, Carolyn Amaro, Soham Elder and colleagues, with an educational kimberly from [employer]. Review of Systems Const Details: Const Denies chills, Denies fatigue, Denies fever(s), Denies headache(s) and Denies weakness ENT Denies dizziness and Denies headache(s) Card Denies chest pain, Denies lightheadedness, Denies dyspnea and Denies other (Palpitations) Resp Denies cough, Denies dyspnea, Denies wheezing and Denies other ( shortness of breath) GI Denies abdominal pain, Denies melena, Denies hematochezia, Denies change in bowel habits, Denies dyspepsia and Denies nausea Denies hematuria and Denies dysuria Musc Reports as per HPI Skin/Breast Denies rash, Denies unusual bruising and Denies wounds Neuro Denies abnormal gait, Denies dizziness, Denies headache(s), Denies memory loss, Denies numbness, Denies Sensory deficit (Neuro), Denies tingling and Denies weakness Psych Denies anxiety, Denies depression, Denies memory loss Endo Denies cold intolerance, Denies fatigue, Denies heat intolerance, Denies polydipsia and Denies polyuria Aller/Immun Denies wheezing Physical exam (Primary Care) Vital Signs: Last Vital Signs Temp 97.9 F 01/06/25 15:15 Pulse 62 01/06/25 15:15 Resp 16 01/06/25 15:15 BP 116/60 01/06/25 15:15 Pulse Ox 95 01/06/25 15:15 Oxygen Delivery Method Room Air 01/06/25 15:15 BMI result Body Mass Index 35.4 Tobacco/Smoking Status: Tobacco use Status Tobacco use date assessed 01/06/25 01/06/25 15:19 Patient Tobacco Use Status Former Tobacco user 01/06/25 15:10 Tobacco use type Cigarette 01/06/25 15:10 e-Cigarette/Vaping Use Never Used 01/06/25 15:10 Thrive Assessment: Date of Thrive Assessment Date Thrive assessed 07/07/24 01/06/25 15:10 Currently or been in a relationship where the following occur: No concerns reported Const Other: General: no acute distress and well developed Nutritional Appearance: well nourished Orientation/consciousness: patient oriented x3 [facility] Head: Yes normocephalic and Yes atraumatic Eyes General: appearance normal, both eyes and all related structures Pupils: Equal, round and reactive pupils present EOM: EOMs intact bilaterally Resp Effort & Inspection: normal respiratory effort Auscultation: clear to auscultation bilaterally Cardio Rate: regular rate Rhythm: regular rhythm Heart sounds: S1 normal heart sound present, S2 normal heart sound present, no gallops, no murmurs and no rubs GI Palpation (GI): No Abdominal aortic bruit present, Soft to palpation, nontender, No hepatosplenomegaly present and No Rebound tenderness present Auscultation: normal bowel sounds General: Yes no CVA tenderness Back/Spine/Pelvis Back: no CVA tenderness Cervical Spine: cervical ROM normal and No Cervical spine tenderness Thoracic/Lumbar Spine: thoraco-lumbar ROM normal, No pain with thoraco-lumbar ROM, No thoracic spinal tenderness and No lumbar spinal tenderness Extrem General: Yes normal to inspection, No edema and No calf tenderness. Surgical incision to left knee is well healed, minimal swelling noted Skin General: warm and dry. Normal skin color. Normal skin turgor Neuro General: patient oriented x3, gait normal and no focal neuro deficit Cranial nerves: Yes Equal, round and reactive pupils present Cognition (Neuro): normal cognition Gait exam (Neuro): Normal gait present Sensory Exam: No Sensory deficit (Neuro) Psych Appearance: grossly normal Affect: normal affect Attitude: cooperative Thought process: Normal thought process present Coding Level of Care Code Est Pt Level 3 (05550) Diagnoses Status post total left knee replacement Z96.652 Assessment & Plan Assessment & Plan (1) Status post total left knee replacement: Code(s): Z96.652 - Presence of left artificial knee joint Category: Surgical Plan: 54-year-old female presents for a post op appointment s/p left total knee arthroplasty 11/17/[address] Vega. Patient reports she is doing well and completed home PT last week She has noticed some swelling in her knee. She reports mild 2/10 intermittent pain and stiffness to the knee especially with increased physical activities. She denies acute symptoms at this time. Surgical incision to left knee is well healed, minimal swelling noted. Continue current treatment regimen. Follow up for HTN and HLD as planned. Follow up with ortho as planned. Verbalized understanding and agreed with plan.
[2025-01-06 15:15] VITALS: BP 116/60; PULSE 62; RESP 16; TEMP 36.6; O2SAT 95; BMI 35.4
--- OUTSIDE RECORDS SUMMARY | 2025-01-06 15:48 | XMS_ITS | Encounter Summary ---
Author Organization [facility] Address [address] [place] [address] Care Team Providers Care Executive Sales Assistant Name Role Phone Whit Thakur Primary Care Provider [phone] Reason for Visit * Reason Onset Date Comments request to speak with nurse 04/18/2021 Dr Mumtaz cochran med question 04/18/2021 Encounter Details Date Type Department Care Team (Late st Contact Info) Description 04/18/2021 Telephone [facility] [address] [place] [address] Telephone Intake, Staff request to speak [...] is looking for a facility[facility]office [facility] the [facility]. She will speak with her pcp about potential clinic. She didn't have any other questions at this time. #[phone] * Telephone Encounter - Sharon Bay RN - 04/18/2021 3:09 PM EDT Pt called to report that the PCP refused to prescribe the diclofenac for the pt that is a neurologymedication. The pt stated that her previous neurologist Dr Arias from [facility] is who originally prescribed it [...] call back from nurse Katherine Keita # [phone] Please route your response back to the [facility] Neurology Admin Staff Pool. Thank you documented in this encounter Plan of Treatment Upcoming Encounters Date Type Department Care Team (Late st Contact Info) Description 05/25/2025 10:00 AM EST Office Visit [facility] [address] [place] [address] Jaxon Jimenez PA [address] [place] [address] documented as of this encounter Visit Diagnoses Not on filedocumented in this encounter Care Teams Executive Sales Assistant Relationship Specialty Start Date End Date Whit Thakur [address] [place] [address] PCP - General Family Medicine 10/06/24 documented as of this encounter
--- OUTSIDE RECORDS SUMMARY | 2025-01-06 15:48 | XMS_ITS | Clinical Summary ---
Author Organization [facility] Address [address] [place] [address] Phone Care Team Providers Care Automobile Parts Assembler Name Role Phone Physician, No Pcp Primary [...] 09/04/2023 Venous insufficiency 09/04/2023 Overview (04/29/2024): Per [facility] records. Carpal tunnel syndrome 04/25/2023 Chronic headache 04/25/2023 GERD (gastroesophageal reflux disease) HTN (hypertension) 04/25/2023 Memory changes 04/25/2023 Mixed incontinence 04/25/2023 Overview (04/29/2024): Last Assessment & Plan: Per [facility] records Obesity (BMI 35.0-39.9 without comorbidity) 04/02 Seizure (CMS/HCC V24, CMS/HCC V28) 04/25/2023 Encounters Date Type Department Care Team Description 11/03/2024 9:00 AM EDT Office Visit Pulmonolgy - [address] [place] [address] Sha Diamond MD Pulmonary nodule (Primary Dx); Preop respiratory exam from Last 3 Months Immunizations Name Administration [...] DX:Dyspare unia in female Family history of [place]'s disease DX:Family history of Nay's disease GERD [...] 69 11/03/2024 8:56 AM EDT Temperature 36.4 C (97.6 F) 11/03/2024 8:56 AM EDT Respiratory Rate 16 11/03/2024 8:56 AM EDT [...] Blood Test 12/12/2024 12/13/2023, 12/13/2023 Influenza Vaccine (#1) 2025 , 07/04/2021, 05/11/2020, Additional history exists Cholesterol Screening [...] Result * Hepatitis C Screening (08/06/2023) Pathologist [facility] Hepatitis C Screening Abstracted Historical Provider HEALTH MAINTENANCE Final Result * (ABNORMAL) Lipid panel (08/06/2023) Pathologist [facility] LDL/HDL Ratio 5(A) 0 - 4 Triglycerides 157(A) 0 - 150 mg/dL Cholesterol 223(A) 0 - 200 mg/dL HDL 46 >=40 mg/dL LDL Cholesterol 146(A) 0 - 100 mg/dL Blood Venous blood specimen / Unknown Historical Provider LAB BLOOD ORDERABLES Ginna l Result from Last 3 Months or Most Recently Relevant to Health Maintenance Insurance [facility] MEDICAID Care Teams Automobile Parts Assembler Relationship Specialty Start Date End Date Physician, No Pcp PCP - General 05/27/24
--- OUTSIDE RECORDS SUMMARY | 2025-01-06 15:48 | XMS_ITS | Patient Health Record ---
Author Organization [facility] Address [address] [place] [address] Care Team Providers Care Naval Aircrewman Mechanical Name Role Phone Balbir Castro Primary Care Provider [phone] Ricky Devries Unavailable Unavailable Allergies Allergen (clinical [...] Problem Status W/U Status Risk Notes Problem [place] (85579155) Nay's disease (G10) Active confirmed Problem Epilepsy characterized by intractable complex partial seizures (934537879) Localization-relate d (focal) (partial) symptomatic epilepsy and epileptic syndromes with complex partial seizures, intractable, without status epilepticus (G40.219) Active confirmed Problem Chronic intractable migraine without aura (872781789869273 ) Chronic migraine without aura, intractable, with status migrainosus (G43.711) Active confirmed Problem Transient ischemic attack (090493714) 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 Plan Of Treatment No Information Insurance Providers Payer Name Payer Address Payer Phone Subscriber Number Group Number Insured Name Patient Relationship to Insured Coverage Start Date Coverage End Date [place] Medicaid [address] [place] [address] [id number] Kenya Awad Self - patient is the insured Medical (General) History Medical History History ICD Code seizure disorder HTN gerd Surgical History Surgery Date(Month/Year) FRITZ w/o uterine fibroids 2010 carpal tunnel repair bilat resection flank lipoma in 20s Hospitalization History Reason Date(Month/Year) [facility] (yc hiatry-dreamy state, hallucinations) x 5 d 2017
== END 2025-01-06 15:39 | disposition home or self-care (01) ==
LOC: HO.HMCFM 15:07
PROVIDERS: Visit Provider Nurse Practitioner Family
DX: Z96.652 Presence of left artificial knee joint (principal)

== ENCOUNTER → 2025-01-06 15:06 | Outpatient (BNVA) | payer OTHER, SELFPAY | PROVIDERS: Visit Provider Nurse Practitioner Family | DX: Z96.652 Presence of left artificial knee joint (principal); Z98.890 Other specified postprocedural states | CPT/HCPCS: 99212 ==

== ENCOUNTER 2025-02-11 14:10 | Outpatient (REF) | payer OTHER, SELFPAY ==
--- OUTSIDE RECORDS SUMMARY | 2025-02-11 14:28 | XMS_ITS | Encounter Summary ---
Author Organization [facility] Address [address] [place] [address] Care Team Providers Care Merchandise For Resale Purchasing Agent Name Role Phone Whit Thakur Primary Care Provider [phone] Reason for Visit * Reason Onset Date Comments request to speak with nurse 04/18/2021 Dr Mumtaz cochran med question 04/18/2021 Encounter Details Date Type Department Care Team (Late st Contact Info) Description 04/18/2021 Telephone [facility] [address] [place] [address] Telephone Intake, Staff request to speak [...] have any other questions at this time. #[phone] * Telephone Encounter - Sharon Bay RN - 04/18/2021 3:09 PM EDT Pt called to report that the PCP refused to prescribe the diclofenac for the pt that is a neurologymedication. The pt stated that her previous neurologist Dr Arias from [facility] is who originally prescribed it for her. [...] call back from nurse Katherine Keita # [phone] Please route your response back to the [facility] Neurology Admin Staff Pool. Thank you documented in this encounter Plan of Treatment Not on file documented as of this encounter Visit Diagnoses Not on filedocumented in this encounter Care Teams Merchandise For Resale Purchasing Agent Relationship Specialty Start Date End Date Whit Thakur [address] [place] [address] PCP - General Family Medicine 10/06/24 documented as of this encounter
--- OUTSIDE RECORDS SUMMARY | 2025-02-11 14:28 | XMS_ITS | Clinical Summary ---
Author Organization [facility] Address [address] [place] [address] Phone Care Team Providers Care Oil Program Compliance Specialist Name Role Phone Physician, No Pcp [...] Obesity (BMI 35.0-39.9 without comorbidity) 04/02 Seizure (CMS/[facility] V24, CMS/[facility] V28) 04/25/2023 Immunizations Name Administration Dates Next Due Moderna [...] inco ntinence Seizure disorder (CMS/HCC V2 4, CMS/[facility] V28) DX:Seizure disorder (HCC) Venous insufficiency DX:Venous [...] PCV) 2019 Colorectal Cancer Screening: Colonoscopy 07/27/2023 HIV Screening 07/27/2023 Social Influencers of Health Screening 07/27/2023 COVID-19 Vaccine ( season) 2024 09/16/2022, 07/04/2021, 11/25/2020, Additional history exists Depression Screening 07/02/2024 Hypertension/CHF/CAD Annual BMP Blood Test 12/12/2024 12/13/2023, [...] C Screening (08/06/2023) Hepatitis C Screening Abstracted us Historical Provider HEALTH MAINTENANCE Final Result * [...] Most Recently Relevant to Health Maintenance Insurance [facility] MEDICAID Care Teams Oil Program Compliance Specialist Relationship Specialty Start Date End Date Physician, No Pcp PCP - General 05/27/24
--- OUTSIDE RECORDS SUMMARY | 2025-02-11 14:28 | XMS_ITS | Patient Health Record ---
Author Organization [facility] Address [address] [place] [address] Care Team Providers Care Applications System Analyst Name Role Phone Balbir Castro Primary Care [...] TAKE 1 CAPSULE BY MOUTH TWICE A DAY; Duration: 90 Active Propranolol HCl 40 MG 1 [...] Problem Status W/U Status Risk Notes Problem [place]'s disease (00707481) [place]'s disease (G10) Active confirmed Problem Localization-rel ate d (focal) (partial) symptomatic epilepsy and epileptic syndromes with complex partial seizures, intractable, without status epilepticus (G40.219) Active confirmed Problem Chronic intractable migraine without aura (27783282523728 5) Chronic migraine without aura, intractable, with status migrainosus (G43.711) Active confirmed Problem Transient ischemic attack (000355293) 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 Plan Of Treatment No Information Insurance Providers Payer Name Payer Address Payer Phone Subscriber Number Group Number Insured Name Patient Relationship to Insured Coverage Start Date Coverage End Date [place] Medicaid [address] [place] [address] [id number] Kenya Awad Self - patient is the insured Medical (General) History Medical History History ICD Code seizure disorder HTN gerd Surgical History Surgery Date(Month/Year) FRITZ w/o uterine fibroids 2010 carpal tunnel repair bilat resection flank lipoma in 20s Hospitalization History Reason Date(Month/Year) [facility] (yc hiatry-dreamy state, hallucinations) x 5 d 2017
[2025-02-11 17:01] LABS: Cholesterol 166 mg/dL (<200); HDL Cholesterol 45 mg/dL (>40); Triglycerides 109 mg/dL (<150)
== END 2025-02-11 14:11 | disposition home or self-care (01) ==
LOC: HO.HMGCLDS 14:10
PROVIDERS: PCP Nurse Practitioner Family; Visit Provider Nurse Practitioner Family
DX: R45.89 Other symptoms and signs involving emotional state (principal)
CPT/HCPCS: 36415; 80061

== ENCOUNTER 2025-02-26 11:29 | Outpatient (AMB) | payer OTHER, SELFPAY ==
--- NOTE | 2025-02-26 11:34 | A.OFFVIS_ITS ---
Intake Visit Reasons: OV:2-3monthPO: L TKA w/ 11/17/24 Intake Note: Kenya is a 54 year old female who presents with complaints of mild intermittent discomfort in her left knee after undergoing left total knee replacement surgery on 11/17/2024. She continues with her home stretching program. She denies any fevers or chills. Allergies baclofen Allergy (Intermediate, Verified 02/26/25 11:35) Dizziness/nausea latex (LATEX) Allergy (Intermediate, Verified 02/26/25 11:35) Rash codeine (Codeine) Adverse Reaction (Intermediate, Verified 02/26/25 11:35) Nausea and Vomiting Medication List - Last Reconciled 02/26/25 by Glenn Vega MD acetaminophen 650 mg (2 x 325 mg) PO Q6H PRN 30 days amlodipine-benazepril 10-20 mg 1 cap PO DAILY 30 days atorvastatin 10 mg PO DAILY B-complex with vitamin C 1 tab PO DAILY divalproex 500 mg PO BID gabapentin 1,200 mg PO TID lamotrigine 200 mg PO BID meclizine 25 mg PO QID PRN omeprazole 40 mg PO DAILY propranolol 40 mg PO BID walker Folding front wheeled walker [facility] Medical History (Updated 12/25/24 @ 14:09 by Glenn Vega MD) delivery delivered Lipoma of back Osteoarthritis Anesthesia complication Pulmonary nodules Hyperlipidemia Chronic cluster headache, intractable Seizure disorder Migraine Acid reflux HTN (hypertension) Surgical History Status post total left knee replacement History of esophagogastroduodenoscopy (EGD) H/O colonoscopy History of carpal tunnel release Hx of hysterectomy Family History Mother Alcohol abuse FH: mental illness Father Alcohol abuse Brother Alcohol abuse FH: mental illness Maternal Grandfather Alcohol abuse Sister Alcohol abuse FH: mental illness Maternal Grandmother FH: mental illness Social History Household Members: Children Household Members Other:: patient lives with her son, sister lives below Housing: House Housing Other:: multifamily Are you a primary primary care sales representative to a significant other at home: No Do you presently have visiting nurse or other home services: Yes (VNA, speech therapy,PT/OT) Alcohol intake: never Patient Tobacco Use Status: Former Tobacco user Tobacco use type: Cigarette Years Smoked: 9 e-Cigarette/Vaping Use: Never Used Second Hand Smoke Exposure: No Advance Directives Date on File: 07/19/09 service: No 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al status: disabled 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al exposures/hazards: No Cognitive needs: No Hearing needs: No Vision needs: Yes Physical Exam Const Other: Well-nourished well-developed very friendly female awake alert and oriented x3 in no acute distress Extrem Other: Bilateral lower extremity examination shows good capillary refill, no skin lesions noted, normal sensation light touch Left knee examination shows that the surgical incision is well healed, no erythema, full active extension and flexion to 120 degrees, her patella tracks well Assessment & Plan Assessment & Plan (1) Left knee pain: Code(s): M25.562 - Pain in left knee Category: Medical Plan Ms. Awad continues to do well after undergoing left total knee replacement surgery on 11/17/2024. She will continue with her home exercise program. She does know to take antibiotics before any dental work. She will contact me prior to her follow-up appointment in 3 months should any questions or concerns arise. Feel free to call me at any time should questions regarding her orthopedic management arise. I spent 22 minutes in reviewing the patient's records and imaging studies, seeing the patient and documenting in the medical record. Coding Level of Care Code Est Pt Level 3 (21792) Complex EM visit Add On G2211 Diagnoses Left knee pain M25.562
--- OUTSIDE RECORDS SUMMARY | 2025-02-26 12:47 | XMS_ITS | Encounter Summary ---
Author Organization [facility] Address [address] [place] [address] Care Team Providers Care Aerodynamic Consultant Name Role Phone Whit Thakur Primary Care Provider Encounter Details Date Type Department Care Team (Late st Contact Info) Description 08/02/2022 Orders Only [facility] Neurology Clinic [address] [place], [place] [address] Shantel Cardoza MD [address] [place], [place] [id number] Headache syndrome; Transient neurological symptoms Social History [...] as of this encounter Plan of Treatment Not on file documented as of this encounter Results * Due to [place] state law, this organization might not be sharing negative HIV tests. * Ambulatory EEG (08/02/2022 12:38 PM EST) Narrative Shantel Cardoza MD - 08/02/2022 12:38 PM EST Shantel Cardoza MD 08/02/2022 2:32 PM [facility] 3-DAY AMBULATORY CONTINUOUS VIDEO-EEG REPORT Patient: Kenya Crespo : 1970 Start Date/Time: 07/03/2022, 15:12 Stop Date/Time: 07/06/2022, 09:47 Object: 52 y.o. female who presents clinical suspicion of epilepsy or seizure Neuroactive Medications: Current Outpatient Medications: amLODIPine-benazepriL (LOTREL) 10-20 mg per capsule, Take 1 capsule by mouth once a day., Disp: , Rfl: divalproex DR (DEPAKOTE) 250 mg EC tablet, TAKE 2 TABLETS BY MOUTH TWICE A DAY, Disp: 360 tablet, Rfl: 1 gabapentin (NEURONTIN) 300 mg capsule, Take 3 capsules (900 mg total) by mouth 3 times a day. Increase to this dose as directed, Disp: 270 capsule, Rfl: 5 galcanezumab-gnlm 120 mg/mL pen injector, Inject 1 mL (120 mg total) under the skin every 28 days for 2 doses. For initial loading dose, inject 2 pens, 1 mL each for a total of 2 mL under the skin. Follow this with a single injection every 28 days., Disp: 2 mL, Rfl: 0 lamoTRIgine (LaMICtal) 25 mg tablet, Take 8 tablets (200 mg total) by mouth 2 times a day., Disp: 480 tablet, Rfl: 11 magnesium oxide (MAG-OX) 400 mg (241.3 mg mag) tablet, Take 1 tablet (400 mg total) by mouth once a day., Disp: 30 tablet, Rfl: 2 meclizine (ANTIVERT) 25 mg tablet, TAKE 1 TABLET BY MOUTH 3 TIMES A DAY NEEDED FOR NAUSEA AND VOMITING, Disp: , Rfl: omeprazole (PriLOSEC) 20 mg capsule, Take 40 mg by mouth 2 times a day. , Disp: , Rfl: propranoloL (INDERAL) 40 mg tablet, Take 40 mg by mouth 2 times a day., Disp: , Rfl: riboflavin, vitamin B2, 400 mg tablet, Take 1 tablet (400 mg total) by mouth once a day., Disp: 30 tablet, Rfl: 3 Recording Conditions: Twenty-five (25) disposable electrodes were applied according to the standard 10-20 international measurement and placement protocol in person by an advertising clerk for the purposes of recording long-term video [...] and referential electrode montages. The patient or recreation leader was instructed to keep an event log [...] transients (K-complexes and sleep spindles) Focal slowing. There were intermittent and occasional runs of semirhythmic [...] (corresponding to push button at 4:29 PM): no description entered for the event in the diary; clinically patient off camera. Electrographically there were no epileptiform discharges or ictal build up. 07/03/2022 at 5:39 PM (corresponding to push button at 5:41 PM): no description entered for the event in the diary; clinically patient walks into the room and pushes the button. Electrographically there were no epileptiform discharges or ictal build up. 07/04/2022 at 12:48 AM (corresponding to push button at 12:50 AM): no description entered for the event in the diary; clinically patient is sitting in chair with no clinical signs of a seizure. Electrographically there were no epileptiform discharges or ictal build up. 07/04/2022 at 9:48 AM (corresponding to push button at 9:50 AM): no description entered for the event in the diary; clinically patient off camera. Electrographically there were no epileptiform discharges or ictal build up. 07/04/2022 at 10:27 AM (corresponding to push button at 10:29 AM): no description entered for the event in the diary; clinically patient is partially off camera (no clinical signs noted). Electrographically there were no epileptiform discharges or ictal build up. 07/04/2022 at 5:49 PM (corresponding to push button at 5:51 PM, 5;51 PM and 5:52 PM): no description entered for the event in the diary; clinically patient off camera. Electrographically there were no epileptiform discharges or ictal build up. 07/04/2022 at 7:24 PM (corresponding to push button at 7:26 PM): no description entered for the event in the diary; clinically patient off camera. Electrographically there were no epileptiform discharges or ictal build up. 07/04/2022 at 11:07 PM (corresponding to push button at 11:09 PM): no description entered for the event in the diary; clinically patient off camera. Electrographically there were no epileptiform discharges or ictal build up. 07/04/2022 at 11:13 PM (corresponding to push button at 11:15 PM): no description entered for the event in the diary; clinically patient is sitting in chair with no clinical signs of a seizure. She gets up and gets off camera view before pushing button. Electrographically there were no epileptiform discharges or ictal build up. 07/04/2022 at 11:53 PM (corresponding to push button at 11:55 PM): no description entered for the event in the diary; clinically patient off camera. Electrographically there were no epileptiform discharges or ictal build up. 07/05/2022 at 12:33 AM (corresponding to push button at 12:35 AM): no description entered for the event in the diary; clinically patient is sitting in chair with no clinical signs of a seizure. Electrographically there were no epileptiform discharges or ictal build up. 12. 07/05/2022 at 1:43 AM (corresponding to push button at 1:45 AM): patient reported in her diary feeling crappy, nauseous, pain worse in the head, I'm getting hot . Clinically patient is sitting in the chair with no clinical signs. Electrographically there were no epileptiform discharges or ictal build up. 13. 07/05/2022 at 2:13 PM (corresponding to push button at 2:15 PM and 2:16 PM): no description entered for the event in the diary; clinically patient off camera. Electrographically there were no epileptiform discharges or ictal build up. 14. 07/05/2022 at 2:24 PM (corresponding to push button at 2:26 PM): Clinically patient reported in her diary Nauseous, feeling [...] nauseous, pain worsened. She is off camera. Electrographically there were no epileptiform discharges or ictal build up. 16. 07/05/2022 at 5:44 PM (corresponding to push button at 5:46 PM): Clinically patient reported in her diary I having another, feeling sick, , nauseous, head pain worsened. She is sitting with no clinical signs in the camera. Electrographically there were no epileptiform discharges or ictal build up. 17. 07/05/2022 at 6:02 PM (corresponding to push button at 6:04 PM): Clinically patient reported in her diary Nauseous and head pain increasing, I'm having another. She is sitting in a chair in the camera. Electrographically there were no epileptiform discharges or ictal build up. Single Channel Rubber Goods Inspector: Rhythm: regular Rate (typical): ~ 66 bpm [...] no apparent clinical correlate in the video. Patient [...] symptoms documented in this encounter Care Teams Aerodynamic Consultant Relationship Specialty Start Date End Date Whit Thakur [address] [place] [address] PCP - General Family Medicine 10/06/24 documented as of this encounter
--- OUTSIDE RECORDS SUMMARY | 2025-02-26 12:47 | XMS_ITS | Encounter Summary ---
Author Organization [facility] Address [address] [place] [address] Care Team Providers Care Loan Expeditor Name Role Phone Whit Thakur Primary Care Provider [phone] Encounter Details Date Type Department Care Team (Late st Contact Info) Description 03/22/2022 Telephone [facility] Neurology Clinic [address] [place] [phone] Telephone Intake, Staff Social History Tobacco Use [...] - 03/27/2022 10:38 AM EDT PT-1 Number: [id number] Neurology Clinic - EXP: 03/23/2023 Treatment Details [...] on filedocumented in this encounter Care Teams Loan Expeditor Relationship Specialty Start Date End Date Whit Thakur [address] [place] [id number] PCP - General Family Medicine 10/06/24 documented as of this encounter
--- OUTSIDE RECORDS SUMMARY | 2025-02-26 12:47 | XMS_ITS | Encounter Summary ---
Author Organization [facility] Address [address] [place] [address] Care Team Providers Care Nuclear Power Plant Engineer Name Role Phone Whit Thakur Primary Care Provider [phone] Encounter Details Date Type Department Care Team (Late st Contact Info) Description 07/22/2021 Telephone [facility] Neurology Clinic [address] [place] [address] Telephone Intake, Staff Social History Tobacco [...] regarding Nancy. Pt may be reached at [phone] documented in this encounter Plan of Treatment Not on file documented as of this encounter Visit Diagnoses Not on filedocumented in this encounter Care Teams Nuclear Power Plant Engineer Relationship Specialty Start Date End Date Whit Thakur [address] [place] [address] PCP - General Family Medicine 10/06/24 documented as of this encounter
--- OUTSIDE RECORDS SUMMARY | 2025-02-26 12:47 | XMS_ITS | Encounter Summary ---
Author Organization [facility] Address [address] [place] [address] Care Team Providers Care Graphic Design Specialist Name Role Phone Whit Thakur Primary Care Provider [phone] Reason for Visit * Reason Onset Date Comments Patient has questions 04/27/2021 Pt of Ricky Devries; Pt of [place]amaria Encounter Details Date Type Department Care Team (Late st Contact Info) Description 04/27/2021 Telephone [facility] [address] [place] [address] Telephone Intake, Staff Patient has questions [...] Please advise. * Telephone Encounter - Elena Norwood - 04/27/2021 2:15 PM EDT Patient calling to request headache order She is unsure of a location and will call us back with that information thanks documented in this encounter Plan of Treatment Not on file documented as of this encounter Visit Diagnoses Not on filedocumented in this encounter Care Teams Graphic Design Specialist Relationship Specialty Start Date End Date Whit Thakur [address] [place] [address] PCP - General Family Medicine 10/06/24 documented as of this encounter
--- OUTSIDE RECORDS SUMMARY | 2025-02-26 12:47 | XMS_ITS | Encounter Summary ---
Author Organization [facility] Address [address] [place] [address] Care Team Providers Care Cattle And Wheat Farmer Name Role Phone Whit Thakur Primary Care Provider [phone] Reason for Visit * Reason Onset Date Comments Referral Request 08/23/2021 Encounter Details Date Type Department Care Team (Late st Contact Info) Description 08/23/2021 Telephone [facility] Central Scheduling Department [address] [place] [address] Telephone Intake, Staff Referral Request Social History [...] 2:12 PM EST PT returning call from [facility] regarding a referral to a specialist. I tried credit front office developer but was unable to get ahold of anyone. Please reach out to PT with any information. documented in this encounter Plan of Treatment Not on file documented as of this encounter Visit Diagnoses Not on filedocumented in this encounter Care Teams Cattle And Wheat Farmer Relationship Specialty Start Date End Date Whit Thakur [address] [place] [address] PCP - General Family Medicine 10/06/24 documented as of this encounter
--- OUTSIDE RECORDS SUMMARY | 2025-02-26 12:47 | XMS_ITS | Encounter Summary ---
Author Organization [facility] Address [address] [place] [address] Care Team Providers Care Accounting Technician Name Role Phone Whit Thakur Primary Care Provider [phone] Encounter Details Date Type Department Care Team (Late st Contact Info) Description 07/19/2021 myCmoneymeetst Message [facility] [address] [place] [address] Jackie Ritchie [place] Medication question Social History [...] on filedocumented in this encounter Care Teams Accounting Technician Relationship Specialty Start Date End Date Whit Thakur [address] [place] [address] PCP - General Family Medicine 10/06/24 documented as of this encounter
--- OUTSIDE RECORDS SUMMARY | 2025-02-26 12:47 | XMS_ITS | Clinical Summary ---
Author Organization [facility] Address [address] [place] [address] Care Team Providers Care Lime Vat Tender Name Role Phone Whit Thakur Primary Care Provider [phone] Allergies Active Allergy Reactions Criticality Noted Date [...] as needed for nausea or vomiting. Active lamoTRIgine (LaMICtal) 25 mg tabletIndications :Seizure-like [...] every evening. 360 tablet 3 5 Active gabapentin (NEURONTIN) 600 mg tabletIndications :Seizure-like activity (HCC),Intractable chronic migraine without aura and without status migrainosus TAKE 2 TABLETS (1,200 MG TOTAL) BY MOUTH 3 TIMES A DAY 540 tablet 3 5 Active Active Problems Patient Care Coordination No te Formatting of this note migh t be different from the original. PT-1 Request Number [id number] is Approved, 2 visits per month for [...] appointments with the headache/migraine providers here at [facility]. She has since found a new [...] me now that I have returned to [facility]. Regarding the episodes that she calls [...] HD: Reportedly was evaluated at a genetics center/[facility] in [place], but those records are not available. Plans to be evaluated at genetics clinic at [facility]. - Continue Lamotrigine 200 mg twice daily [...] patient would prefer somewhere closer to home ([place]) - Ambulatory EEG pending - Seizure/Fall precautions at all times - Seizure and headache diary recommended - Genetic testing consultation scheduled. (+FH of HD) - Follow up in 3-4 months Resolved Problems Problem Noted Date Diagnosed Date Resolved Date Seizure 12/17/2020 12/13/2023 Encounters Date Type Department Care Team Description 12/17/2024 Refill [facility] [address] [place], [place] [id number] Keith Conrad MD Seizure-like activity (HCC); Intractable chronic migraine without aura and without status migrainosus from Last 3 Months Family History Medical History Relation Name Comments COPD Father Sullivan's disease Father Brain Aneurysm Maternal Grandmother Dementia [...] 67 10/24/2024 2:44 PM EDT Temperature 37 C (98.6 F) 10/24/2024 2:44 PM EDT Respiratory Rate 18 10/24/2024 2:44 PM EDT Oxygen Saturation 95% 10/24/2024 2:44 PM EDT Inhaled Oxygen Concentration - - Weight 95.3 kg (210 lb) 10/24/2024 2:44 PM EDT Height 162.6 cm (5' 4 ) 10/24/2024 2:44 PM EDT Body Mass Index 36.05 10/24/2024 2:44 PM EDT Plan of Treatment Health Maintenance Due Date Last Done Comments Cologuard 1969 Colon Cancer Screening 1969 Colonoscopy 1969 FOBT / Fit Test 1969 HIV Screening 1969 Hepatitis C Screening 1969 Sigmoidoscopy 1969 Hepatitis B Vaccines (1 of 3 - 19+ 3-dose series) 1988 Diabetes Screening 2004 Mammogram 2009 Pneumococcal Vaccine: 50+ Ye ars (1 of 1 - PCV) 2019 COVID-19 Vaccine (5 - 2023-2 5 season) 2024 09/16/2022, 07/04/2021, 11/25/2020, Additional history exists Alcohol/Substance Use Screening 07/02/2024 Depression Screening and Follow-Up 07/02/2024 Social Drivers of Health Amy ual Screening 07/02/2024 Basic Metabolic Panel 12/12/2024 12/13/2023 , 11/24/2022, 10/16/2022, Additional history exists Influenza Vaccine (#1) 2025 , 07/04/2021, 05/11/2020, Additional history exists DTaP,Tdap,and Td Vaccines (5 - Td or Tdap) 11/02/2033 11/03/2023, 07/24/2019, 07/04/2019, Additional history exists RSV Vaccine (60+ years old a nd patients) (1 - 1-dose 75+ series) 2044 Zoster Vaccines Completed 11/03/2023, 07/14/2023 Medical Devices Implanted Type Area Credit Risk Modeler Device Identifier Shelf Expiration Date Model / Serial / Lot Device Closure Vascular 5fr Vascade - [id number] Implanted:Qty: 1 on 11/30/2022 at [facility] Implant [employer] EMMY 08/22/2024 [id number] / / [id number] Procedures * Due to [place] state law, this organization might not be sharing negative HIV tests. Procedure Name Priority Date/Time Associated Diagnosis Comments COMPREHENSIVE METABOLIC PANEL Routine 12/13/2023 2:02 PM EDT Seizure-like activity from Last 3 Months or Most Recently Relevant to Health Maintenance Results * Due to [place] state law, this organization might not be sharing negative HIV tests. * (ABNORMAL) Comprehensive Metabolic Panel (12/13/2023 2:02 PM EDT) NA 139 135 - 145 mmol/L 12/13/2023 3:29 PM EDT [facility] K 4.6 3.5 - 5.3 mmol/L 12/13/2023 3:29 PM EDT [facility] Cl 100 98 - 107 mmol/L 12/13/2023 3:29 PM EDT [facility] CO2 28 24 - 32 mmol/L 12/13/2023 3:29 PM EDT [facility] Anion Gap 11 5 - 15 12/13/2023 3:29 PM EDT [facility] Glucose 112(H) 65 - 99 mg/dL 12/13/2023 3:29 PM EDT [facility] Creatinine 0.68 0.50 - 1.20 mg/dL 12/13/2023 3:29 PM EDT [facility] Calcium 10.5 8.6 - 10.5 mg/dL 12/13/2023 3:29 PM EDT [facility] Total Protein 6.9 6.0 - 8.0 g/dL 12/13/2023 3:29 PM EDT [facility] Albumin 4.8 3.5 - 5.2 g/dL 12/13/2023 3:29 PM EDT [facility] Bilirubin, Total 0.2 0.2 - 1.2 mg/dL 12/13/2023 3:29 PM EDT [facility] Alkaline Phosphatase 71 35 - 129 U/L 12/13/2023 3:29 PM EDT [facility] AST 16 10 - 40 U/L 12/13/2023 3:29 PM EDT [facility] ALT 22 10 - 40 U/L 12/13/2023 3:29 PM EDT [facility] BUN 10 7 - 23 mg/dL 12/13/2023 3:29 PM EDT [facility] eGFR >90 >=60 mL/min/1. 73m2 12/13/2023 3:29 PM EDT [facility] Comment: The estimated glomerular [...] - 4.2 g/dL 12/13/2023 3:29 PM EDT [facility] A/G Ratio 2.3 1.5 - 3.0 12/13/2023 3:29 PM EDT [facility] Blood Structure of peripheral vein / Unknown Venipuncture / Unknown 12/13/2023 2:02 PM EDT 12/13/2023 2:31 PM EDT us Keith Conrad MD LAB BLOOD ORDERABLES Final Resul t [facility] [address] [place] [address], from Last 3 Months or Most Recently Relevant to Health Maintenance Insurance [place] [id number] Advance Directives Documents on File Type Date Recorded Patient Sanding Machine Tender Expl anation Health Care Proxy 11/24/2022 1:13 PM HEALTH CARE PROXY SCANNED IN Care Teams Lime Vat Tender Relationship Specialty Start Date End Date Whit Thakur [address] [place], [place] [id number] PCP - General Family Medicine 10/06/24
--- OUTSIDE RECORDS SUMMARY | 2025-02-26 12:47 | XMS_ITS | Encounter Summary ---
Author Organization [facility] Address [address] [place] [address] Care Team Providers Care Roll Table Operator Name Role Phone Whit Thakur Primary Care Provider [phone] Encounter Details Date Type Department Care Team (Late st Contact Info) Description 03/01/2021 Telephone [facility] [address] [place] [address] Telephone Intake, Staff Social History Tobacco [...] on filedocumented in this encounter Care Teams Roll Table Operator Relationship Specialty Start Date End Date Whit Thakur [address] [place] [address] PCP - General Family Medicine 10/06/24 documented as of this encounter
--- OUTSIDE RECORDS SUMMARY | 2025-02-26 12:47 | XMS_ITS | Patient Health Record ---
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, intractable, without status epilepticus (G40.219) Active confirmed Problem Chronic intractable migraine without aura (22559494922170 5) Chronic migraine without aura, intractable, with status migrainosus (G43.711) Active confirmed Problem Transient ischemic attack (327552785) 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 Plan Of Treatment No Information Insurance Providers Payer Name Payer Address Payer Phone Subscriber Number Group Number Insured Name Patient Relationship to Insured Coverage Start Date Coverage End Date [place] [address] [place] [phone] [id number] Kenya Awad Self - patient is the insured Medical (General) History Medical History History ICD Code seizure disorder HTN gerd Surgical History Surgery Date(Month/Year) [facility]Z w/o uterine fibroids 2010 carpal tunnel repair bilat resection flank lipoma in 20s Hospitalization History Reason Date(Month/Year) [facility] (yc hiatry-dreamy state, hallucinations) x 5 d 2017
--- OUTSIDE RECORDS SUMMARY | 2025-02-26 12:47 | XMS_ITS | Encounter Summary ---
Author Organization [facility] Address [address] [place] [address] Care Team Providers Care Auctioneer Art Name Role Phone Whti Thakur Primary Care Provider [phone] Reason for Visit * Reason Onset Date Comments Med Refill 07/15/2021 Encounter Details Date Type Department Care Team (Late st Contact Info) Description 07/15/2021 Telephone [facility] [address] [place] [address] Telephone Intake, Staff Med Refill Social [...] Please route your response back to the [facility] Neurology Admin Staff Pool. Thank you documented in this encounter Plan of Treatment Not on file documented as of this encounter Visit Diagnoses Not on filedocumented in this encounter Care Teams Auctioneer Art Relationship Specialty Start Date End Date Whit Thakur [address] [place] [address] PCP - General Family Medicine 10/06/24 documented as of this encounter
--- OUTSIDE RECORDS SUMMARY | 2025-02-26 12:47 | XMS_ITS | Encounter Summary ---
Author Organization [facility] Address [address] [place] [address] Care Team Providers Care Broadcast News Producer Name Role Phone Whit Thakur Primary Care Provider [phone] Encounter Details Date Type Department Care Team (Late st Contact Info) Description 03/02/2021 Telephone [facility] [address] [place] [address] Telephone Intake, Staff Social History Tobacco [...] on filedocumented in this encounter Care Teams Broadcast News Producer Relationship Specialty Start Date End Date Whit Thakur [address] [place] [address] PCP - General Family Medicine 10/06/24 documented as of this encounter
--- OUTSIDE RECORDS SUMMARY | 2025-02-26 12:47 | XMS_ITS | Encounter Summary ---
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 Conrad documented in this encounter Plan of Treatment Not on file documented as of this encounter Visit Diagnoses Not on filedocumented in this encounter Care Teams Associate Artistic Director Relationship Specialty Start Date End Date Whit Thakur [address] [place] [address] PCP - General Family Medicine 10/06/24 documented as of this encounter
--- OUTSIDE RECORDS SUMMARY | 2025-02-26 12:47 | XMS_ITS | Clinical Summary ---
Author Organization [facility] Address [address] [place] [address] Phone Care Team Providers Care Grade Tamper Name Role Phone Physician, No Pcp Primary [...] 09/04/2023 Venous insufficiency 09/04/2023 Overview (04/29/2024): Per [facility] records. Carpal tunnel syndrome 04/25/2023 Chronic headache 04/25/2023 GERD (gastroesophageal reflux disease) HTN (hypertension) 04/25/2023 Memory changes 04/25/2023 Mixed incontinence 04/25/2023 Overview (04/29/2024): Last Assessment & Plan: Per [facility] records Obesity (BMI 35.0-39.9 without comorbidity) 04/02 Seizure (CMS/[facility] V24, CMS/[facility] V28) 04/25/2023 Immunizations Name Administration Dates Next [...] inco ntinence Seizure disorder (CMS/HCC V2 4, CMS/[facility] V28) DX:Seizure disorder (HCC) Venous insufficiency DX:Venous [...] Most Recently Relevant to Health Maintenance Insurance [facility] MEDICAID Care Teams Grade Tamper Relationship Specialty Start Date End Date Physician, No Pcp PCP - General 05/27/24
--- OUTSIDE RECORDS SUMMARY | 2025-02-26 12:47 | XMS_ITS | Encounter Summary ---
Author Organization [facility] Address [address] [place] [address] Care Team Providers Care Mash Filter Operator Name Role Phone Whit Thakur Primary Care Provider [phone] Reason for Visit * Reason Onset Date Comments Send message to Dr. Conrad 04/04/2021 Pt of Conrad EEG home device not working 04/04/2021 Encounter Details Date Type Department Care Team (Late st Contact Info) Description 04/04/2021 Telephone [facility] [address] [place] [address] Telephone Intake, Staff Send message to [...] technical difficulty with the EEG device the [facility] took it [facility]. The pt neverhad the EEG reading started before the device issue. She would like a new device. Can we have a device sent to her in the mail? #[phone] * Telephone Encounter - Siomara Christianson - 04/04/2021 10:45 AM EDT Pt stopped [...] be reached at her home number at [phone]. Thank you documented in this encounter Plan of Treatment Not on file documented as of this encounter Visit Diagnoses Not on filedocumented in this encounter Care Teams Mash Filter Operator Relationship Specialty Start Date End Date Whit Thakur [address] [place] [address] PCP - General Family Medicine 10/06/24 documented as of this encounter
--- OUTSIDE RECORDS SUMMARY | 2025-02-26 12:47 | XMS_ITS | Encounter Summary ---
Author Organization [facility] Address [address] [place] [address] Care Team Providers Care Awning Hanger Name Role Phone Whit Thakur Primary Care Provider [phone] Reason for Visit * Reason Onset Date Comments request to speak with nurse 04/18/2021 Dr Mumtaz cochran med question 04/18/2021 Encounter Details Date Type Department Care Team (Late st Contact Info) Description 04/18/2021 Telephone [facility] [address] [place] [address] Telephone Intake, Staff request to speak [...] is looking for a facility/office in the [facility]. She will speak with her pcp about potential clinic. She didn't have any other questions at this time. #[phone] * Telephone Encounter - Sharon Bay RN - 04/18/2021 3:09 PM EDT Pt called to report that the PCP refused to prescribe the diclofenac for the pt that is a neurologymedication. The pt stated that her previous neurologist Dr Arias from [facility] is who originally prescribed it for [...] call back from nurse Katherine Keita # [phone] Please route your response back to the [facility] Neu[facility] Admin Staff Pool. Thank you documented in this encounter Plan of Treatment Not on file documented as of this encounter Visit Diagnoses Not on filedocumented in this encounter Care Teams Awning Hanger Relationship Specialty Start Date End Date Whit Thakur [address] [place] [address] PCP - General Family Medicine 10/06/24 documented as of this encounter
--- OUTSIDE RECORDS SUMMARY | 2025-02-26 12:47 | XMS_ITS | Encounter Summary ---
Author Organization [facility] Address [address] [place] [address] Care Team Providers Care Land Leases And Rentals Manager Name Role Phone Whit Thakur Primary Care Provider [phone] Reason for Visit * Reason Onset Date Comments cs appointment new botox 11/29/2022 Encounter Details Date Type Department Care Team (Late st Contact Info) Description 11/29/2022 Telephone [facility] Central Scheduling Department [address] [place] [address] Telephone Intake, Staff cs appointment new botox [...] to schedule appointment. DT send TE Kenya: [phone] Thank you documented in this encounter Plan of Treatment Not on file documented as of this encounter Visit Diagnoses Not on filedocumented in this encounter Care Teams Land Leases And Rentals Manager Relationship Specialty Start Date End Date Whit Thakur [address] [place] [address] PCP - General Family Medicine 10/06/24 documented as of this encounter
--- OUTSIDE RECORDS SUMMARY | 2025-02-26 12:47 | XMS_ITS | Encounter Summary ---
Author Organization [facility] Address [address] [place] [address] Care Team Providers Care Defense Analyst Name Role Phone Whit Thakur Primary Care Provider [phone] Encounter Details Date Type Department Care Team (Late st Contact Info) Description 01/11/2021 myChart Message [facility] [address] [place] [address] Iván Clinton MD [address] [place] [address] Test Results Question Social History Tobacco Use [...] on filedocumented in this encounter Care Teams Defense Analyst Relationship Specialty Start Date End Date Whit Thakur [address] [place] [address] PCP - General Family Medicine 10/06/24 documented as of this encounter
== END 2025-02-26 11:59 | disposition home or self-care (01) ==
LOC: HO.HOS 11:30
PROVIDERS: PCP Nurse Practitioner Family; Visit Provider Orthopaedic Surgery
DX: M25.562 Pain in left knee (principal)
CPT/HCPCS: 99213; G2211

== ENCOUNTER → 2025-02-26 11:29 | Outpatient (BNVA) | payer OTHER, SELFPAY | PROVIDERS: PCP Nurse Practitioner Family; Visit Provider Orthopaedic Surgery | DX: M25.562 Pain in left knee (principal); Z96.652 Presence of left artificial knee joint; Z98.890 Other specified postprocedural states | CPT/HCPCS: 99212 ==

== ENCOUNTER 2025-03-24 10:07 | Outpatient (AMB) | payer OTHER, SELFPAY ==
--- NOTE | 2025-03-24 10:44 | A.OFFPC_ITS ---
Vital Signs 03/24/25 10:47 03/24/25 11:11 Height 5 ft 4 in Weight 216 lb 4 oz BMI 37.1 BP 143/63 H 110/64 Blood Pressure Location Rt brachial Rt brachial Position Sitting Sitting Respiration 16 Pulse 67 Pulse Source Pulse Oximeter Temp 97.9 F Temp Source Oral Pulse Oximetry (%) 100 Oxygen Delivery Method Room Air Intake Visit Reasons: Rebooked from 02/13 3 mos HTN, HLD Intake Note: patient here for follow up on HTN and HLD c/o feeling light headed Rotating Equipment Specialist Required: No Is last menstrual period known: No Post menopausal: No Patient : No Allergies baclofen Allergy (Intermediate, Verified 03/24/25 11:04) Dizziness/nausea latex (LATEX) Allergy (Intermediate, Verified 03/24/25 11:04) Rash codeine (Codeine) Adverse Reaction (Intermediate, Verified 03/24/25 11:04) Nausea and Vomiting Medication List - Last Reconciled 03/24/25 by Whit Thakur CNP acetaminophen 650 mg (2 x 325 mg) PO Q6H PRN 30 days amlodipine-benazepril 10-20 mg 1 cap PO DAILY 30 days atorvastatin 10 mg PO DAILY B-complex with vitamin C 1 tab PO DAILY divalproex 500 mg PO BID gabapentin 1,200 mg PO TID lamotrigine 200 mg PO BID meclizine 25 mg PO QID PRN omeprazole 40 mg PO DAILY propranolol 40 mg PO BID walker Folding front wheeled walker Tobacco use date assessed: 03/24/25 Dental Screening Dental Screen Date: 03/24/25 Did you have a dental visit in the last 12 months?: No Did you have a dental problem in the last 6 months where you did not have access to dental care?: No Was dental information given to patient?: Yes HPI HPI Comments History of Present Illness Details 54-year-old female presents for hyperten renee and hyperlipidemia follow- up. She admits to taking her medications as prescribed without adverse reactions. She generally eats healthy. She is active but does not exercise. Reports erythema to bilateral lower legs. No pain or discomfort. [facility] Medical History (Updated 03/24/25 @ 11:16 by Whit Thakur CNP) delivery delivered Lipoma of back Osteoarthritis Anesthesia complication Pulmonary nodules Hyperlipidemia Chronic cluster headache, intractable Seizure disorder Migraine Acid reflux HTN (hypertension) Surgical History Status post total left knee replacement History of esophagogastroduodenoscopy (EGD) H/O colonoscopy History of carpal tunnel release Hx of hysterectomy Family History Mother Alcohol abuse FH: mental illness Father Alcohol abuse Brother Alcohol abuse FH: mental illness Maternal Grandfather Alcohol abuse Sister Alcohol abuse FH: mental illness Maternal Grandmother FH: mental illness Social History Household Members: Children Household Members Other:: patient lives with her son, sister lives below Housing: House Housing Other:: multifamily Are you a primary care nurse rn to a significant other at home: No Do you presently have visiting nurse or other home services: Yes (VNA, speech therapy,PT/OT) Alcohol intake: never Patient Tobacco Use Status: Former Tobacco user Tobacco use type: Cigarette Years Smoked: 9 e-Cigarette/Vaping Use: Never Used Second Hand Smoke Exposure: No Advance Directives Date on File: 07/19/09 service: No 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al status: disabled 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al exposures/hazards: No Cognitive needs: No Hearing needs: No Vision needs: Yes Questionnaire Thrive Questionnaire Date Thrive assessed: 07/07/24 I am a: Patient What is your living situation today?: I have a steady place to live Within the past 12 months, did the food you bought not last and you didn't have the money to get more?: Never true Within the past 12 months, did you worry whether your food would run out before you got money to buy more?: Never true Do you have trouble paying for medicines?: No Do you have trouble getting transportation to medical appointments?: No Do you have trouble paying your heating and electricity bill?: No Do you have trouble taking care of your child, family member or friend?: No Do you have trouble with day-to-day activities such as bathing, preparing meals, shopping, managing finances, etc.?: No Are you currently unemployed and looking for a job?: No Are you interested in more education?: No Please select the resources that you would like help with: None Currently or been in a relationship where the following occur: No concerns reported THRIVE Score: 0 JOHN-7 AMB Questionnaire JOHN-7 Date JOHN - 7 assessed: 03/06/24 Source: Developed by Drs. Sin Chavira, Carolyn Amaro, Soham Elder and colleagues, with an educational kimberly from [employer]. Review of Systems Const Details: Const Denies chills, Denies fatigue, Denies fever(s), Denies headache(s) and Denies weakness ENT Denies dizziness and Denies headache(s) Card Denies chest pain, Denies lightheadedness, Denies dyspnea and Denies other (Palpitations) Resp Denies cough, Denies dyspnea, Denies wheezing and Denies other ( shortness of breath) GI Denies abdominal pain, Denies melena, Denies hematochezia, Denies change in bowel habits, Denies dyspepsia and Denies nausea Denies hematuria and Denies dysuria Musc Denies abnormal gait, Denies myalgias, Denies arthralgias, Denies numbness and Denies tingling Skin/Breast Denies rash, Denies unusual bruising and Denies wounds Neuro Denies abnormal gait, Denies dizziness, Denies headache(s), Denies memory loss, Denies numbness, Denies Sensory deficit (Neuro), Denies tingling and Denies weakness Psych Denies anxiety, Denies depression, Denies memory loss Endo Denies cold intolerance, Denies fatigue, Denies heat intolerance, Denies polydipsia and Denies polyuria Aller/Immun Denies wheezing Physical exam (Primary Care) Vital Signs: Last Vital Signs Temp 97.9 F 03/24/25 10:47 Pulse 67 03/24/25 10:47 Resp 16 03/24/25 10:47 BP 143/63 H 03/24/25 10:47 Pulse Ox 100 03/24/25 10:47 Oxygen Delivery Method Room Air 03/24/25 10:47 BMI result Body Mass Index 37.1 Tobacco/Smoking Status: Tobacco use Status Tobacco use date assessed 03/24/25 03/24/25 10:50 Patient Tobacco Use Status Former Tobacco user 03/24/25 10:46 Tobacco use type Cigarette 03/24/25 10:46 e-Cigarette/Vaping Use Never Used 03/24/25 10:46 Thrive Assessment: Date of Thrive Assessment Date Thrive assessed 07/07/24 03/24/25 10:46 Currently or been in a relationship where the following occur: No concerns reported Const Other: General: no acute distress and well developed Nutritional Appearance: well nourished Orientation/consciousness: patient oriented x3 [facility]: Yes normocephalic and Yes atraumatic Eyes General: appearance normal, both eyes and all related structures Pupils: Equal, round and reactive pupils present EOM: EOMs intact bilaterally Resp Effort & Inspection: normal respiratory effort Auscultation: clear to auscultation bilaterally Cardio Rate: regular rate Rhythm: regular rhythm Heart sounds: S1 normal heart sound present, S2 normal heart sound present, no gallops, no murmurs and no rubs GI Palpation (GI): No Abdominal aortic bruit present, Soft to palpation, nontender, No hepatosplenomegaly present and No Rebound tenderness present Auscultation: normal bowel sounds General: Yes no CVA tenderness Back/Spine/Pelvis Back: no CVA tenderness Cervical Spine: cervical ROM normal and No Cervical spine tenderness Thoracic/Lumbar Spine: thoraco-lumbar ROM normal, No pain with thoraco-lumbar ROM, No thoracic spinal tenderness and No lumbar spinal tenderness Extrem General: Yes normal to inspection, No calf tenderness, 1+ edema with ?mild? erythema to bilateral lower legs and ankles, skin is blanchable Skin General: warm and dry. Normal skin color. Normal skin turgor Neuro General: patient oriented x3, gait normal and no focal neuro deficit Cranial nerves: Yes Equal, round and reactive pupils present Cognition (Neuro): normal cognition Gait exam (Neuro): Normal gait present Sensory Exam: No Sensory deficit (Neuro) Psych Appearance: grossly normal Affect: normal affect Attitude: cooperative Thought process: Normal thought process present Coding Level of Care Code Est Pt Level 3 (86979) Diagnoses HTN (hypertension) I10 Hyperlipidemia E78.5 Bilateral lower extremity edema R60.0 Assessment & Plan Assessment & Plan (1) HTN (hypertension): Code(s): I10 - Essential (primary) hypertension Category: Medical Plan: Resting blood pressure is 110/64, within goal of less than 140/90. Continue current treatment regimen. Low-sodium diet encouraged. Will continue to monitor. Verbalized understanding and agreed with plan. (2) Hyperlipidemia: Code(s): E78.5 - Hyperlipidemia, unspecified Category: Medical Plan: Recent LDL level is slightly elevated, 100, goal is less than 100. Triglycerides, total cholesterol, and HDL levels are normal. Continue current treatment regimen. Advised to limit foods high in saturated fat and avoid foods high in trans fat. Routine exercise encouraged. Fast for 10-12 hours, may drink water, and performed lipid panel blood work a few days before next visit. Will recheck lipid panel level in 3 months. Verbalized understanding and agreed with the plan. (3) Bilateral lower extremity edema: Code(s): R60.0 - Localized edema Category: Medical Plan: Reports erythema to bilateral lower legs. No pain or discomfort. 1+ edema with ?mild? erythema to bilateral lower legs and ankles, skin is blanchable. Likely related to prolonged dependent position of the lower extremities. Encouraged to elevate her bilateral lower extremities. May wear compression stockings with prolonged walking or sitting. Follow-up as needed. Verbalized understanding and agreed with the plan.
[2025-03-24 10:47] VITALS: BP 143/63; PULSE 67; RESP 16; TEMP 36.6; O2SAT 100; BMI 37.1
[2025-03-24 11:11] VITALS: BP 110/64
--- OUTSIDE RECORDS SUMMARY | 2025-03-24 12:18 | XMS_ITS | Encounter Summary ---
Author Organization [facility] Address [address] [place] [address] Care Team Providers Care Tentmaker Name Role Phone Whit Thakur Primary Care Provider [phone] Reason for Visit * Reason Onset Date Comments Med Refill 07/15/2021 Encounter Details Date Type Department Care Team (Late st Contact Info) Description 07/15/2021 Telephone [facility] [address] [place] [address] Telephone Intake, Staff Med Refill Social [...] route your response back to the [facility] Neu[facility] Admin Staff Pool. Thank you documented in this encounter Plan of Treatment Upcoming Encounters Date Type Department Care Team (Late st Contact Info) Description 12/02/2025 10:00 AM EDT Office Visit [facility] [address] [place] [address] Carolyn Bates MD [address] [place] [address] documented as of this encounter Visit Diagnoses Not on filedocumented in this encounter Care Teams Tentmaker Relationship Specialty Start Date End Date Whit Thakur [address] [place] [address] PCP - General Family Medicine 10/06/24 documented as of this encounter
--- OUTSIDE RECORDS SUMMARY | 2025-03-24 12:18 | XMS_ITS | Encounter Summary ---
Author Organization [facility] Address [address] [place] [address] Care Team Providers Care Cloth Grader Name Role Phone Whit Thakur Primary Care Provider [phone] Encounter Details Date Type Department Care Team (Late st Contact Info) Description 07/19/2021 myChart Message [facility] [address] [place] [address] Jackie Ritchie MA Medication question Social History [...] Description 12/02/2025 10:00 AM EDT Office Visit [facility] [address] [place] [address] Carolyn Bates MD [address] [place] [address] documented as of this encounter Visit Diagnoses Not on filedocumented in this encounter Care Teams Cloth Grader Relationship Specialty Start Date End Date Whit Thakur [address] [place] [id number] PCP - General Family Medicine 10/06/24 documented as of this encounter
--- OUTSIDE RECORDS SUMMARY | 2025-03-24 12:18 | XMS_ITS | Encounter Summary ---
Author Organization [facility] Address [address] [place] [address] Care Team Providers Care Program Dir Name Role Phone Whit Thakur Primary Care Provider [phone] Reason for Visit * Reason Onset Date Comments Send message to Dr. Conrad 04/04/2021 Pt of Conrad EEG home device not working 04/04/2021 Encounter Details Date Type Department Care Team (Late st Contact Info) Description 04/04/2021 Telephone [facility] [address] [place] [address] Telephone Intake, Staff Send message to [...] technical difficulty with the EEG device the [facility] took it back. The pt neverhad the EEG reading started before the device issue. She would like a new device. Can we have a device sent to her in the mail? #[phone] * Telephone Encounter - Siomara Meghan - [...] be reached at her home number at [phone]. Thank you documented in this encounter Plan of Treatment Upcoming Encounters Date Type Department Care Team (Late st Contact Info) Description 12/02/2025 10:00 AM EDT Office Visit [facility] [address] [place] [address] Carolyn Bates MD [address] [place] [address] documented as of this encounter Visit Diagnoses Not on filedocumented in this encounter Care Teams Program Dir Relationship Specialty Start Date End Date Whit Thakur [address] [place] [address] PCP - General Family Medicine 10/06/24 documented as of this encounter
--- OUTSIDE RECORDS SUMMARY | 2025-03-24 12:18 | XMS_ITS | Encounter Summary ---
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 Conrad documented in this encounter Plan of Treatment Upcoming Encounters Date Type Department Care Team (Late st Contact Info) Description 12/02/2025 10:00 AM EDT Office Visit [facility] [address] [place], [place] [phone] Carolyn Bates MD [address] [place] [address] documented as of this encounter Visit Diagnoses Not on filedocumented in this encounter Care Teams Apparel Pattern Maker Relationship Specialty Start Date End Date Whit Thakur [address] [place] [address] PCP - General Family Medicine 10/06/24 documented as of this encounter
--- OUTSIDE RECORDS SUMMARY | 2025-03-24 12:18 | XMS_ITS | Clinical Summary ---
Author Organization [facility] Address [address] [place] [address] Phone Care Team Providers Care Business Support Assistant Name Role Phone Physician, No Pcp Primary [...] 09/04/2023 Venous insufficiency 09/04/2023 Overview (04/29/2024): Per [facility] records. Carpal tunnel syndrome 04/25/2023 Chronic headache 04/25/2023 GERD (gastroesophageal reflux disease) HTN (hypertension) 04/25/2023 Memory changes 04/25/2023 Mixed incontinence 04/25/2023 Overview (04/29/2024): Last Assessment & Plan: Per [facility] records Obesity (BMI 35.0-39.9 without comorbidity) 04/02 Seizure (CMS/[facility] V24, CMS/[facility] V28) 04/25/2023 Immunizations Name Administration [...] DX:Dyspare unia in female Family history of Baraga's disease DX:Family history of Baraga's disease GERD (gastroesophageal reflux disease) DX:GERD (gastroesophageal reflux disease) Mixed hyperlipidemia DX:Mixed hy perlipidemia Essential (primary) hypertension DX:Essential (primary) hypertension Mixed incontinence DX:Mixed inco ntinence Seizure disorder (CMS/HCC V2 4, CMS/[facility] V28) DX:Seizure disorder (HCC) Venous [...] Cancer Screening: Colonoscopy 07/27/2023 HIV Screening 07/27/2023 Medicare Annual Wellness Visit 07/27/2023 Social Influencers of Health Screening 07/27/2023 Depression Screening 07/02/2024 Hypertension/CHF/CAD Annual BMP Blood Test 12/12/2024 12/13/2023, 12/13/2023 COVID-19 Vaccine ( season) 2025 09/16/2022, 07/04/2021, 11/25/2020, Additional history exists Influenza Vaccine (#1) 2025 , 07/04/2021, 05/11/2020, Additional history exists Cholesterol Screening (Lipid Panel) 08/06/2028 08/06/2023 DTaP,Tdap,and Td Vaccines (5 - Td or Tdap) 11/02/2033 11/03/2023, 07/24/2019, 07/04/2019, Additional history exists RSV Immunization Adult Patients (1 - 1-dose 75+ series) 2044 Hepatitis C Screening Completed 08/06/2023 Zoster Vaccines [...] Test (12/13/2023) Annual BMP Blood Test Abstracted us Historical Provider HEALTH MAINTENANCE Final [...] Most Recently Relevant to Health Maintenance Insurance [facility] MEDICARE Member Subscriber Plan / Payer (Ef fective 2024-Present) Name:PANFILO FARLEY Relation to Subscriber:Self Name:Panfilo Farley Payer ID:[id number] Group ID:[id number] Type:Not on file Address: [address] [place] [address] [facility] MEDICAID Care Teams Business Support Assistant Relationship Specialty Start Date End Date Physician, No Pcp PCP - General 05/27/24
--- OUTSIDE RECORDS SUMMARY | 2025-03-24 12:18 | XMS_ITS | Encounter Summary ---
Author Organization [facility] Address [address] [place] [address] Care Team Providers Care Biscuit Packer Name Role Phone Whit Thakur Primary Care Provider [phone] Reason for Visit * Reason Onset Date Comments request to speak with nurse 04/18/2021 Dr Mumtaz cohcran med question 04/18/2021 Encounter Details Date Type Department Care Team (Late st Contact Info) Description 04/18/2021 Telephone [facility] [address] [place] [address] Telephone Intake, Staff request to speak [...] is looking for a facility/office in the [facility]. She will speak with her pcp about potential clinic. She didn't have any other questions at this time. #[phone] * Telephone Encounter - Sharon Bay RN - 04/18/2021 3:09 PM EDT Pt called to report that the PCP refused to prescribe the diclofenac for the pt that is a neurologymedication. The pt stated that her previous neurologist Dr Arias from [facility] is who originally prescribed it for her. [...] call back from nurse Katherine Keita # [phone] Please route your response back to the [facility] Neurology Admin Staff Pool. Thank you documented in this encounter Plan of Treatment Upcoming Encounters Date Type Department Care Team (Late st Contact Info) Description 12/02/2025 10:00 AM EDT Office Visit [facility] [address] [place], [place] [phone] Carolyn Bates MD [address] [place] [phone] documented as of this encounter Visit Diagnoses Not on filedocumented in this encounter Care Teams Biscuit Packer Relationship Specialty Start Date End Date Whit Thakur [address] [place] [phone] PCP - General Family Medicine 10/06/24 documented as of this encounter
--- OUTSIDE RECORDS SUMMARY | 2025-03-24 12:18 | XMS_ITS | Encounter Summary ---
Author Organization [facility] Address [address] [place] [address] Care Team Providers Care Floor Scrubber Name Role Phone Whit Thakur Primary Care Provider [phone] Encounter Details Date Type Department Care Team (Late st Contact Info) Description 08/02/2022 Orders Only [facility] [address] [place] [address] Shantel Cardoza MD [address] [place], [place] [phone] Headache syndrome; Transient neurological symptoms Social History [...] Office Visit [facility] [address] [place], [place] [phone] Carolyn Bates MD [address] [place] [address] documented as of this encounter Results * Due to [place] state law, this organization might not be sharing negative HIV tests. * Ambulatory EEG (08/02/2022 12:38 PM EST) Narrative Shantel Cardoza MD - 08/02/2022 12:38 PM EST Shantel Cardoza MD 08/02/2022 2:32 PM [facility] 3-DAY AMBULATORY CONTINUOUS VIDEO-EEG REPORT Patient: [...] and placement protocol in person by an laborer wood preserving plant for the purposes of recording long-term video [...] and referential electrode montages. 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 Single Channel Compliance Director: Rhythm: regular Rate (typical): ~ 66 bpm [...] symptoms documented in this encounter Care Teams Floor Scrubber Relationship Specialty Start Date End Date Whit Thakur [address] [place] [address] PCP - General Family Medicine 10/06/24 documented as of this encounter
--- OUTSIDE RECORDS SUMMARY | 2025-03-24 12:18 | XMS_ITS | Encounter Summary ---
Author Organization [facility] Address [address] [place] [address] Care Team Providers Care Infection Prevention Practitioner Name Role Phone Whit Thakur Primary Care Provider [phone] Encounter Details Date Type Department Care Team (Late st Contact Info) Description 03/22/2022 Telephone [facility] [address] [place] [phone] Telephone Intake, Staff Social History Tobacco Use [...] - 03/27/2022 10:38 AM EDT PT-1 Number: [id number] Neurology Clinic - EXP: 03/23/2023 Treatment Details [...] Description 12/02/2025 10:00 AM EDT Office Visit [facility] [address] [place] [address] Carolyn Bates MD [address] [place] [address] documented as of this encounter Visit Diagnoses Not on filedocumented in this encounter Care Teams Infection Prevention Practitioner Relationship Specialty Start Date End Date Whit Thakur [address] [place] [address] PCP - General Family Medicine 10/06/24 documented as of this encounter
--- OUTSIDE RECORDS SUMMARY | 2025-03-24 12:18 | XMS_ITS | Patient Health Record ---
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, intractable, without status epilepticus (G40.219) Active confirmed Problem Chronic intractable migraine without aura (36566900931181 5) Chronic migraine without aura, intractable, with status migrainosus (G43.711) Active confirmed Problem Transient ischemic attack (960079459) 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 Plan Of Treatment No Information Insurance Providers Payer Name Payer Address Payer Phone Subscriber Number Group Number Insured Name Patient Relationship to Insured Coverage Start Date Coverage End Date [place] Medicaid [address] [place] [address] [id number] Kenya Awad Self - patient is the insured Medical (General) History Medical History History ICD Code seizure disorder HTN gerd Surgical History Surgery Date(Month/Year) FRITZ w/o uterine fibroids 2010 carpal tunnel repair bilat resection flank lipoma in 20s Hospitalization History Reason Date(Month/Year) [facility] (yc hiatry-dreamy state, hallucinations) x 5 d 2017
--- OUTSIDE RECORDS SUMMARY | 2025-03-24 12:18 | XMS_ITS | Encounter Summary ---
Author Organization [facility] Address [address] [place] [address] Care Team Providers Care Form Setter/Driver Name Role Phone Whit Thakur Primary Care Provider [phone] Reason for Visit * Reason Onset Date Comments cs appointment new botox 11/29/2022 Encounter Details Date Type Department Care Team (Late st Contact Info) Description 11/29/2022 Telephone [facility] Central Scheduling Department [address] [place] [address] Telephone Intake, Staff cs appointment new botox [...] to schedule appointment. DT send TE [place]: [phone] Thank you documented in this encounter Plan of Treatment Upcoming Encounters Date Type Department Care Team (Late st Contact Info) Description 12/02/2025 10:00 AM EDT Office Visit [facility] Neurology Clinic [address] [place] [address] Carolyn Bates MD [address] [place] [address] documented as of this encounter Visit Diagnoses Not on filedocumented in this encounter Care Teams Form Setter/Driver Relationship Specialty Start Date End Date Whit Thakur [address] [place] [address] PCP - General Family Medicine 10/06/24 documented as of this encounter
--- OUTSIDE RECORDS SUMMARY | 2025-03-24 12:18 | XMS_ITS | Encounter Summary ---
Author Organization [facility] Address [address] [place] [address] Care Team Providers Care Line Staker Name Role Phone Whit Thakur Primary Care Provider [phone] Encounter Details Date Type Department Care Team (Late st Contact Info) Description 03/01/2021 Telephone [facility] Neurology Clinic [address] [place] [address] Telephone Intake, Staff Social History Tobacco [...] Description 12/02/2025 10:00 AM EDT Office Visit [facility] Clinic [address] [place] [address] Carolyn Bates MD [address] [place] [address] documented as of this encounter Visit Diagnoses Not on filedocumented in this encounter Care Teams Line Staker Relationship Specialty Start Date End Date Whit Thakur [address] [place] [address] PCP - General Family Medicine 10/06/24 documented as of this encounter
--- OUTSIDE RECORDS SUMMARY | 2025-03-24 12:18 | XMS_ITS | Clinical Summary ---
Author Organization [facility] Address [address] [place] [address] Care Team Providers Care Game Advisor Name Role Phone Whit Thakur Primary Care Provider [phone] Allergies Active Allergy Reactions Criticality Noted Date [...] different from the original. PT-1 Request Number [id number] is Approved, 2 visits per month for [...] appointments with the headache/migraine providers here at [facility]. She has since found a [...] me now that I have returned to [facility]. Regarding the episodes that she [...] HD: Reportedly was evaluated at a genetics center/[facility] in [place], but those records are not available. Plans to be evaluated at genetics clinic at [facility]. - Continue Lamotrigine 200 mg twice [...] patient would prefer somewhere closer to home ([place]) - Ambulatory EEG pending - Seizure/Fall precautions at all times - Seizure and headache diary recommended - Genetic testing consultation scheduled. (+FH of HD) - Follow up in 3-4 months Resolved Problems Problem Noted Date Diagnosed Date Resolved Date Seizure 12/17/2020 12/13/2023 Family History Medical History Relation Name Comments [...] Description 12/02/2025 10:00 AM EDT Office Visit [facility] Neurology Clinic [address] [place] [address] Carolyn Bates MD [address] [place] [address] Health Maintenance Due Date Last Done Comments Cologuard 1969 Colon Cancer Screening 1969 Colonoscopy 1969 FOBT / Fit Test 1969 HIV Screening 1969 Hepatitis C Screening 1969 Sigmoidoscopy 1969 Hepatitis B Vaccines (1 of 3 - 19+ 3-dose series) 1988 Mammogram 2009 Pneumococcal Vaccine: 50+ Ye ars (1 of 1 - PCV) 2019 Alcohol/Substance Use Screening 07/02/2024 Depression Screening and Follow-Up 07/02/2024 Social Drivers of Health Amy ual Screening 07/02/2024 Basic Metabolic Panel 12/12/2024 12/13/2023 , 11/24/2022, 10/16/2022, Additional history exists COVID-19 Vaccine (5 - 2024-2 6 season) 2025 09/16/2022, 07/04/2021, 11/25/2020, Additional history exists Influenza Vaccine (#1) 2025 , 07/04/2021, 05/11/2020, Additional history exists Diabetes Screening 12/12/2026 12/13/2023, 0 11/24/2022, 10/16/2022, Additional history exists DTaP,Tdap,and Td Vaccines (5 - Td or Tdap) 11/02/2033 11/03/2023, 07/24/2019, 07/04/2019, Additional history exists RSV Vaccine (60+ years old a nd patients) (1 - 1-dose 75+ series) 2044 Zoster Vaccines Completed 11/03/2023, 07/14/2023 Medical Devices Implanted Type Area Rn Cardiac Cath Device Identifier Shelf Expiration Date Model / Serial / Lot Device Closure Vascular 5fr Vascade - [id number] Implanted:Qty: 1 on 11/30/2022 at [facility] Implant [employer] 08/22/2024 [id number] / / [id number] Procedures * Due to [place] [employer] law, this organization might not be sharing negative HIV tests. Procedure Name Priority Date/Time Associated Diagnosis Comments COMPREHENSIVE METABOLIC PANEL Routine 12/13/2023 2:02 PM EDT Seizure-like activity from Last 3 Months or Most Recently Relevant to Health Maintenance Results * Due to [facility] law, this organization might not be sharing negative HIV tests. * (ABNORMAL) Comprehensive Metabolic Panel (12/13/2023 2:02 PM EDT) NA 139 135 - 145 mmol/L 12/13/2023 3:29 PM EDT [facility] K 4.6 3.5 - 5.3 mmol/L 12/13/2023 3:29 PM EDT [facility] Cl 100 98 - 107 mmol/L 12/13/2023 3:29 PM EDT [facility] CO2 28 24 - 32 mmol/L 12/13/2023 3:29 PM EDT [facility] Anion Gap 11 5 - 15 12/13/2023 3:29 PM EDT [facility] Glucose 112(H) 65 - 99 mg/dL 12/13/2023 3:29 PM EDT [facility] Creatinine 0.68 0.50 - 1.20 mg/dL 12/13/2023 3:29 PM EDT [facility] Calcium 10.5 8.6 - 10.5 mg/dL 12/13/2023 3:29 PM EDT [facility] Total Protein 6.9 6.0 - 8.0 g/dL 12/13/2023 3:29 PM EDT [facility] Albumin 4.8 3.5 - 5.2 g/dL 12/13/2023 3:29 PM EDT [facility] Bilirubin, Total 0.2 0.2 - 1.2 mg/dL 12/13/2023 3:29 PM EDT [facility] Alkaline Phosphatase 71 35 - 129 U/L 12/13/2023 3:29 PM EDT [facility] AST 16 10 - 40 U/L 12/13/2023 3:29 PM EDT [facility] ALT 22 10 - 40 U/L 12/13/2023 3:29 PM EDT [facility] BUN 10 7 - 23 mg/dL 12/13/2023 3:29 PM EDT [facility] eGFR >90 >=60 mL/min/1. 73m2 12/13/2023 3:29 PM EDT [facility] Comment: The estimated glomerular [...] - 4.2 g/dL 12/13/2023 3:29 PM EDT [facility] A/G Ratio 2.3 1.5 - 3.0 12/13/2023 3:29 PM EDT [facility] Blood Structure of peripheral vein / Unknown Venipuncture / Unknown 12/13/2023 2:02 PM EDT 12/13/2023 2:31 PM EDT us Keith Conrad MD LAB BLOOD ORDERABLES Final Resul t [facility] [employer] [facility] [address] [place] [address], from Last 3 Months or Most Recently Relevant to Health Maintenance Insurance [place] [id number] Advance Directives Documents on File Type Date Recorded Patient Fish Checker Expl anation Health Care Proxy 11/24/2022 1:13 PM HEALTH CARE PROXY SCANNED IN Care Teams Game Advisor Relationship Specialty Start Date End Date Whit Thakur [address] [place] [address] PCP - General Family Medicine 10/06/24
--- OUTSIDE RECORDS SUMMARY | 2025-03-24 12:18 | XMS_ITS | Encounter Summary ---
Author Organization [facility] Address [address] [place] [address] Care Team Providers Care Commercial Front Load Operator Name Role Phone Whit Thakur Primary Care Provider [phone] Encounter Details Date Type Department Care Team (Late st Contact Info) Description 03/02/2021 Telephone [facility] Neurology Clinic [address] [place] [phone] Telephone Intake, Staff Social History Tobacco Use [...] Description 12/02/2025 10:00 AM EDT Office Visit [facility] [address] [place] [address] Carolyn Bates MD [address] [place] [address] documented as of this encounter Visit Diagnoses Not on filedocumented in this encounter Care Teams Commercial Front Load Operator Relationship Specialty Start Date End Date Whit Thakur [address] [place] [address] PCP - General Family Medicine 10/06/24 documented as of this encounter
--- OUTSIDE RECORDS SUMMARY | 2025-03-24 12:18 | XMS_ITS | Encounter Summary ---
Author Organization [facility] Address [address] [place] [address] Care Team Providers Care Hyster Driver Name Role Phone Whit Thakur Primary Care Provider [phone] Reason for Visit * Reason Onset Date Comments Referral Request 08/23/2021 Encounter Details Date Type Department Care Team (Late st Contact Info) Description 08/23/2021 Telephone [facility] Central Scheduling Department [address] [place] [address] Telephone Intake, Staff Referral Request Social History [...] to a specialist. I tried front office secretary but was unable to get ahold of anyone. Please reach out to PT with any information. documented in this encounter Plan of Treatment Upcoming Encounters Date Type Department Care Team (Late st Contact Info) Description 12/02/2025 10:00 AM EDT Office Visit [facility] Neurology Clinic [address] [place], [place] [phone] Carolyn Bates MD [address] [place] [address] documented as of this encounter Visit Diagnoses Not on filedocumented in this encounter Care Teams Hyster Driver Relationship Specialty Start Date End Date Whit Thakur [address] [place] [address] PCP - General Family Medicine 10/06/24 documented as of this encounter
--- OUTSIDE RECORDS SUMMARY | 2025-03-24 12:18 | XMS_ITS | Encounter Summary ---
Author Organization [facility] Address [address] [place] [address] Care Team Providers Care Epic Kaleidoscope Analyst Name Role Phone Whit Thakur Primary Care Provider Encounter Details Date Type Department Care Team (Late st Contact Info) Description 07/22/2021 Telephone [facility] Neurology Clinic [address] [place] [address] Telephone Intake, Staff Social History Tobacco [...] Will follow-up * Telephone Encounter - Sirena Cisnerosadama - 07/22/2021 4:[address] Conrad, Pt called requesting a call back from you to discuss findings from Dr. Lisseth Hurst whom you referred her to regarding Nancy. Pt may be reached at [phone] documented in this encounter Plan of Treatment Upcoming Encounters Date Type Department Care Team (Late st Contact Info) Description 12/02/2025 10:00 AM EDT Office Visit [facility] [address] [place] [address] [phone] Carolyn Bates MD [address] [place] [address] [phone] documented as of this encounter Visit Diagnoses Not on filedocumented in this encounter Care Teams Epic Kaleidoscope Analyst Relationship Specialty Start Date End Date Whit Thakur [address] [place] [address] PCP - General Family Medicine 10/06/24 documented as of this encounter
--- OUTSIDE RECORDS SUMMARY | 2025-03-24 12:18 | XMS_ITS | Encounter Summary ---
Author Organization [facility] Address [address] [place] [address] Care Team Providers Care Student Services Director Name Role Phone Whit Thakur Primary Care Provider [phone] Encounter Details Date Type Department Care Team (Late st Contact Info) Description 01/11/2021 myChart Message [facility] Neurology Clinic [address] [place] [address] Iván Clinton MD [address] [place] [address] Test Results Question Social History Tobacco Use [...] Description 12/02/2025 10:00 AM EDT Office Visit [facility] Neurology Clinic [address] [place], [place] [phone] Carolyn Bates MD [address] [place], [place] [phone] documented as of this encounter Visit Diagnoses Not on filedocumented in this encounter Care Teams Student Services Director Relationship Specialty Start Date End Date Whit Thakur [address] [place] [address] PCP - General Family Medicine 10/06/24 documented as of this encounter
--- OUTSIDE RECORDS SUMMARY | 2025-03-24 12:18 | XMS_ITS | Encounter Summary ---
Author Organization [facility] Address [address] [place] [address] Care Team Providers Care Newsstand Vendor Name Role Phone Whit Thakur Primary Care Provider [phone] Reason for Visit * Reason Onset Date Comments Patient has questions 04/27/2021 Pt of Ricky Devries; Pt of [place] Encounter Details Date Type Department Care Team (Late st Contact Info) Description 04/27/2021 Telephone [facility] Neurology Clinic [address] [place] [address] Telephone Intake, Staff Patient has questions [...] Description 12/02/2025 10:00 AM EDT Office Visit [facility] Neurology Clinic [address] [place] [address] Carolyn Bates MD [address] [place] [address] documented as of this encounter Visit Diagnoses Not on filedocumented in this encounter Care Teams Newsstand Vendor Relationship Specialty Start Date End Date Whit Thakur [address] [place] [address] PCP - General Family Medicine 10/06/24 documented as of this encounter
== END 2025-03-24 11:19 | disposition home or self-care (01) ==
LOC: HO.HMCFM 10:08
PROVIDERS: PCP Nurse Practitioner Family; Visit Provider Nurse Practitioner Family
DX: I10 Essential (primary) hypertension (principal); E78.5 Hyperlipidemia, unspecified; R60.0 Localized edema

== ENCOUNTER → 2025-03-24 10:07 | Outpatient (BNVA) | payer OTHER, SELFPAY | PROVIDERS: PCP Nurse Practitioner Family; Visit Provider Nurse Practitioner Family | DX: I10 Essential (primary) hypertension (principal); E78.5 Hyperlipidemia, unspecified; R60.0 Localized edema | CPT/HCPCS: 99212 ==

== ENCOUNTER 2025-03-27 14:34 | Outpatient (REF) | payer OTHER, SELFPAY ==
--- NOTE | ~2025-03-27 | MM_ITS ---
EXAMINATION: MM SCREENING DIGITAL BREAST TOMOSYNTHESIS, BILATERAL CLINICAL INFORMATION: Screening. Asymptomatic. COMPARISON: Mammography: Comparison is made with available priors TECHNIQUE: Digital breast mammography with tomosynthesis is performed in both the craniocaudal and mediolateral oblique views along with computer-aided detection (CAD). FINDINGS: The breasts are heterogeneously dense, which may obscure small masses. There are no significant masses, abnormal calcifications, or other abnormalities. MM/MM tomosynthesis screening BI IMPRESSION: No mammographic evidence of malignancy. ASSESSMENT: BI-RADS Category 1: Negative RECOMMENDATION: Routine annual mammography screening. 1 year F/U This examination should not preclude the clinical evaluation of a suspicious palpable abnormality. This patient's information was entered into a reminder system with a target due date for their next mammogram. Electronically signed by: Mi Rollins DO 03/30/2025 09:39 AM EDT
--- OUTSIDE RECORDS SUMMARY | 2025-03-27 15:30 | XMS_ITS | Encounter Summary ---
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 Conrad documented in this encounter Plan of Treatment Upcoming Encounters Date Type Department Care Team (Late st Contact Info) Description 12/02/2025 10:00 AM EDT Office Visit [facility] Neurology Clinic [address] [place], [place] [phone] Caroyln Bates MD [address] [place] [address] documented as of this encounter Visit Diagnoses Not on filedocumented in this encounter Care Teams Drywall Applicator Relationship Specialty Start Date End Date Whit Thakur [address] [place] [address] PCP - General Family Medicine 10/06/24 documented as of this encounter
--- OUTSIDE RECORDS SUMMARY | 2025-03-27 15:30 | XMS_ITS | Encounter Summary ---
Author Organization [facility] Address [address] [place] [address] Care Team Providers Care Wood Chopper Name Role Phone Whit Thakur Primary Care Provider [phone] Encounter Details Date Type Department Care Team (Late st Contact Info) Description 08/02/2022 Orders Only [facility] Neurology Clinic [address] [place] [address] Shantel Cardoza MD [address] [place], [place] [phone] Headache syndrome; Transient neurological symptoms Social History [...] Description 12/02/2025 10:00 AM EDT Office Visit [facility] Neurology Clinic [address] [place], [place] [phone] Carolyn Bates MD [address] [place] [address] documented as of this encounter Results * Due to [place] state law, this organization might not be sharing negative HIV tests. * Ambulatory EEG (08/02/2022 12:38 PM EST) Narrative Shantel Cardoza MD - 08/02/2022 12:38 PM EST Shantel Cardoza MD 08/02/2022 2:32 PM [facility] 3-DAY AMBULATORY CONTINUOUS VIDEO-EEG REPORT Patient: [...] and placement protocol in person by an microsoft exchange administrator for the purposes of recording long-term video [...] and referential electrode montages. 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 Single Channel Is Support Analyst: Rhythm: regular Rate (typical): ~ 66 [...] symptoms documented in this encounter Care Teams Wood Chopper Relationship Specialty Start Date End Date Whit Thakur [address] [place] [address] PCP - General Family Medicine 10/06/24 documented as of this encounter
--- OUTSIDE RECORDS SUMMARY | 2025-03-27 15:30 | XMS_ITS | Encounter Summary ---
Author Organization [facility] Address [address] [place] [address] Care Team Providers Care Maintenance Mechanic Telephone Name Role Phone Whit Thakur Primary Care Provider [phone] Reason for Visit * Reason Onset Date Comments request to speak with nurse 04/18/2021 Dr Mumtaz cochran med question 04/18/2021 Encounter Details Date Type Department Care Team (Late st Contact Info) Description 04/18/2021 Telephone [facility] Neurology Clinic [address] [place] [address] Telephone Intake, Staff request to speak [...] have any other questions at this time. #[phone] * Telephone Encounter - Sharon Bay RN - 04/18/2021 3:09 PM EDT Pt called to report that the PCP refused to prescribe the diclofenac for the pt that is a neurologymedication. The pt stated that her previous neurologist Dr Arias from [facility] is who originally prescribed it for her. She last saw Dr Arias 10/2020. I asked if she could go back to the Dr, she said no. I told her that I would let Dr Conard know. But he advised against increasing or [...] call back from nurse Katherine Keita # [phone] Please route your response back to the [facility] Neurology Admin Staff Pool. Thank you documented in this encounter Plan of Treatment Upcoming Encounters Date Type Department Care Team (Late st Contact Info) Description 12/02/2025 10:00 AM EDT Office Visit [facility] Neurology Clinic [address] [place], [place] [phone] Carolyn Bates MD [address] [place] [address] [phone] documented as of this encounter Visit Diagnoses Not on filedocumented in this encounter Care Teams Maintenance Mechanic Telephone Relationship Specialty Start Date End Date Whit Thakur [address] [place] [phone] PCP - General Family Medicine 10/06/24 documented as of this encounter
--- OUTSIDE RECORDS SUMMARY | 2025-03-27 15:30 | XMS_ITS | Clinical Summary ---
Author Organization [facility] Address [address] [place] [address] Phone Care Team Providers Care Physician Practice Coordinator Name Role Phone Physician, No Pcp [...] 09/04/2023 Venous insufficiency 09/04/2023 Overview (04/29/2024): Per [facility] records. Carpal tunnel syndrome 04/25/2023 Chronic headache 04/25/2023 GERD (gastroesophageal reflux disease) HTN (hypertension) 04/25/2023 Memory changes 04/25/2023 Mixed incontinence 04/25/2023 Overview (04/29/2024): Last Assessment & Plan: Per [facility] records Obesity (BMI 35.0-39.9 without comorbidity) 04/02 Seizure (CMS/[facility] V24, CMS/[facility] V28) 04/25/2023 Immunizations Name Administration [...] DX:Dyspare unia in female Family history of Wasatch's disease DX:Family history of Wasatch's disease GERD (gastroesophageal reflux disease) DX:GERD (gastroesophageal reflux disease) Mixed hyperlipidemia DX:Mixed hy perlipidemia Essential (primary) hypertension DX:Essential (primary) hypertension Mixed incontinence DX:Mixed inco ntinence Seizure disorder (CMS/HCC V2 4, CMS/[facility] V28) DX:Seizure disorder (HCC) Venous [...] Most Recently Relevant to Health Maintenance Insurance [facility] MEDICARE Member Subscriber Plan / Payer (Ef fective 2024-Present) Name:PANFILO FARLEY Relation to Subscriber:Self Name:Panfilo Farley Payer ID:[id number] Group ID:[id number] Type:Not on file Address: [address] [place] [phone] [facility] MEDICAID Care Teams Physician Practice Coordinator Relationship Specialty Start Date End Date Physician, No Pcp PCP - General 05/27/24
--- OUTSIDE RECORDS SUMMARY | 2025-03-27 15:30 | XMS_ITS | Encounter Summary ---
Author Organization [facility] Address [address] [place] [address] Care Team Providers Care Diamond Setter Apprentice Name Role Phone Whit Thakur Primary Care Provider [phone] Reason for Visit * Reason Onset Date Comments Med Refill 07/15/2021 Encounter Details Date Type Department Care Team (Late st Contact Info) Description 07/15/2021 Telephone [facility] Neurology Clinic [address] [place] [address] Telephone Intake, Staff Med Refill Social [...] encounter Miscellaneous Notes * Telephone Encounter - Cliare Grant [place] - 07/15/2021 3:51 PM EST [...] your response back to the [facility] Neurology Admin Staff Pool. Thank you documented in this encounter Plan of Treatment Upcoming Encounters Date Type Department Care Team (Late st Contact Info) Description 12/02/2025 10:00 AM EDT Office Visit [facility] Neurology Clinic [address] [place] [address] Carolyn Bates MD [address] [place] [address] documented as of this encounter Visit Diagnoses Not on filedocumented in this encounter Care Teams Diamond Setter Apprentice Relationship Specialty Start Date End Date Whit Thakur [address] [place] [address] PCP - General Family Medicine 10/06/24 documented as of this encounter
--- OUTSIDE RECORDS SUMMARY | 2025-03-27 15:30 | XMS_ITS | Encounter Summary ---
Author Organization [facility] Address [address] [place] [address] Care Team Providers Care Microbiology Teacher Name Role Phone Whit Thakur Primary Care Provider [phone] Reason for Visit * Reason Onset Date Comments Send message to Dr. Conrad 04/04/2021 Pt of Conrad EEG home device not working 04/04/2021 Encounter Details Date Type Department Care Team (Late st Contact Info) Description 04/04/2021 Telephone [facility] Neurology Clinic [address] [place] [address] Telephone Intake, Staff Send message to [...] technical difficulty with the EEG device the [facility] took it back. The pt neverhad the EEG reading started before the device issue. She would like a new device. Can we have a device sent to her in the mail? #[phone] * Telephone Encounter - Siomara Meghan - [...] be reached at her home number at [phone]. Thank you documented in this encounter Plan of Treatment Upcoming Encounters Date Type Department Care Team (Late st Contact Info) Description 12/02/2025 10:00 AM EDT Office Visit [facility] Neurology Clinic [address] [place] [address] Carolyn Bates MD [address] [place] [address] documented as of this encounter Visit Diagnoses Not on filedocumented in this encounter Care Teams Microbiology Teacher Relationship Specialty Start Date End Date Whit Thakur [address] [place] [address] PCP - General Family Medicine 10/06/24 documented as of this encounter
--- OUTSIDE RECORDS SUMMARY | 2025-03-27 15:30 | XMS_ITS | Encounter Summary ---
Author Organization [facility] Address [address] [place] [address] Care Team Providers Care Quality Control Tester Name Role Phone Whit Thakur Primary Care Provider [phone] Encounter Details Date Type Department Care Team (Late st Contact Info) Description 01/11/2021 myChart Message [facility] Neurology Clinic [address] [place] [address] Iván Clinton MD [address] [place] [address] Test Results Question Social History Tobacco Use [...] Description 12/02/2025 10:00 AM EDT Office Visit [facility] Neurology Clinic [address] [place], [place] [phone] Carolyn Bates MD [address] [place], [place] [phone] documented as of this encounter Visit Diagnoses Not on filedocumented in this encounter Care Teams Quality Control Tester Relationship Specialty Start Date End Date Whit Thakur [address] [place] [address] PCP - General Family Medicine 10/06/24 documented as of this encounter
--- OUTSIDE RECORDS SUMMARY | 2025-03-27 15:30 | XMS_ITS | Encounter Summary ---
Author Organization [facility] Address [address] [place] [address] Care Team Providers Care Regrind Mill Operator Name Role Phone Whit Thakur Primary Care Provider [phone] Reason for Visit * Reason Onset Date Comments cs appointment new botox 11/29/2022 Encounter Details Date Type Department Care Team (Late st Contact Info) Description 11/29/2022 Telephone [facility] Central Scheduling Department [address] [place] [address] Telephone Intake, Staff cs appointment new botox [...] to schedule appointment. DT send TE [place]: [phone] Thank you documented in this encounter Plan of Treatment Upcoming Encounters Date Type Department Care Team (Late st Contact Info) Description 12/02/2025 10:00 AM EDT Office Visit [facility] [address] [place] [address] Carolyn Bates MD [address] [place] [address] documented as of this encounter Visit Diagnoses Not on filedocumented in this encounter Care Teams Regrind Mill Operator Relationship Specialty Start Date End Date Whit Thakur [address] [place] [address] PCP - General Family Medicine 10/06/24 documented as of this encounter
--- OUTSIDE RECORDS SUMMARY | 2025-03-27 15:30 | XMS_ITS | Encounter Summary ---
Author Organization [facility] Address [address] [place] [address] Care Team Providers Care Operator Automated Process Name Role Phone Whit Thakur Primary Care Provider [phone] Encounter Details Date Type Department Care Team (Late st Contact Info) Description 03/01/2021 Telephone [facility] Neurology Clinic [address] [place] [address] Telephone Intake, Staff Social History Tobacco [...] Description 12/02/2025 10:00 AM EDT Office Visit [facility] Neurology Clinic [address] [place] [address] Carolyn Bates MD [address] [place] [address] documented as of this encounter Visit Diagnoses Not on filedocumented in this encounter Care Teams Operator Automated Process Relationship Specialty Start Date End Date Whit Thakur [address] [place] [address] PCP - General Family Medicine 10/06/24 documented as of this encounter
--- OUTSIDE RECORDS SUMMARY | 2025-03-27 15:30 | XMS_ITS | Encounter Summary ---
Author Organization [facility] Address [address] [place] [address] Care Team Providers Care Dross Puller Name Role Phone Whit Thakur Primary Care Provider [phone] Reason for Visit * Reason Onset Date Comments Referral Request 08/23/2021 Encounter Details Date Type Department Care Team (Late st Contact Info) Description 08/23/2021 Telephone [facility] Central Scheduling Department [address] [place] [address] Telephone Intake, Staff Referral Request Social History [...] a referral to a specialist. I tried lockstitch front maker but was unable to get ahold of anyone. Please reach out to PT with any information. documented in this encounter Plan of Treatment Upcoming Encounters Date Type Department Care Team (Late st Contact Info) Description 12/02/2025 10:00 AM EDT Office Visit [facility] Neurology [facility] [address] [place], [place] [phone] Carolyn Bates MD [address] [place] [address] documented as of this encounter Visit Diagnoses Not on filedocumented in this encounter Care Teams Dross Puller Relationship Specialty Start Date End Date Whit Thakur [address] [place] [address] PCP - General Family Medicine 10/06/24 documented as of this encounter
--- OUTSIDE RECORDS SUMMARY | 2025-03-27 15:30 | XMS_ITS | Encounter Summary ---
Author Organization [facility] Address [address] [place] [address] Care Team Providers Care Supervisor Underwriting Clerks Name Role Phone Whit Thakur Primary Care Provider [phone] Encounter Details Date Type Department Care Team (Late st Contact Info) Description 03/02/2021 Telephone [facility] Neurology Clinic [address] [place] [address] [phone] Telephone Intake, Staff Social History Tobacco Use [...] Description 12/02/2025 10:00 AM EDT Office Visit [facility] Neurology [facility] [address] [place] [address] Carolyn Bates MD [address] [place] [address] documented as of this encounter Visit Diagnoses Not on filedocumented in this encounter Care Teams Supervisor Underwriting Clerks Relationship Specialty Start Date End Date Whit Thakur [address] [place] [address] PCP - General Family Medicine 10/06/24 documented as of this encounter
--- OUTSIDE RECORDS SUMMARY | 2025-03-27 15:30 | XMS_ITS | Encounter Summary ---
Author Organization [facility] Address [address] [place] [address] Care Team Providers Care Inside Sales Consultant Name Role Phone Whit Thakur Primary Care Provider [phone] Encounter Details Date Type Department Care Team (Late st Contact Info) Description 07/22/2021 Telephone [facility] Neurology Clinic [address] [place] [address] Telephone Intake, Staff Social History Tobacco [...] regarding Nancy. Pt may be reached at [phone] documented in this encounter Plan of Treatment Upcoming Encounters Date Type Department Care Team (Late st Contact Info) Description 12/02/2025 10:00 AM EDT Office Visit [facility] Neu[facility] Clinic [address] [place] [address] [phone] Carolyn Bates MD [address] [place] [phone] documented as of this encounter Visit Diagnoses Not on filedocumented in this encounter Care Teams Inside Sales Consultant Relationship Specialty Start Date End Date Whit Thakur [address] [place] [address] PCP - General Family Medicine 10/06/24 documented as of this encounter
--- OUTSIDE RECORDS SUMMARY | 2025-03-27 15:30 | XMS_ITS | Encounter Summary ---
Author Organization [facility] Address [address] [place] [address] Care Team Providers Care Gold Leaf Layer Name Role Phone Whit Thakur Primary Care Provider [phone] Encounter Details Date Type Department Care Team (Late st Contact Info) Description 03/22/2022 Telephone [facility] Neurology Clinic [address] [place] [address] [phone] Telephone Intake, Staff Social History Tobacco Use [...] - 03/27/2022 10:38 AM EDT PT-1 Number: [id number] Neurology Clinic - EXP: 03/23/2023 Treatment Details [...] Description 12/02/2025 10:00 AM EDT Office Visit [facility] Neurology Clinic [address] [place] [address] Carolyn Bates MD [address] [place] [address] documented as of this encounter Visit Diagnoses Not on filedocumented in this encounter Care Teams Gold Leaf Layer Relationship Specialty Start Date End Date Whit Thakur [address] [place] [address] PCP - General Family Medicine 10/06/24 documented as of this encounter
--- OUTSIDE RECORDS SUMMARY | 2025-03-27 15:30 | XMS_ITS | Patient Health Record ---
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, intractable, without status epilepticus (G40.219) Active confirmed Problem Chronic intractable migraine without aura (28567792619388 5) Chronic migraine without aura, intractable, with status migrainosus (G43.711) Active confirmed Problem Transient ischemic attack (036120321) 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 Plan Of Treatment No Information Insurance Providers Payer Name Payer Address Payer Phone Subscriber Number Group Number Insured Name Patient Relationship to Insured Coverage Start Date Coverage End Date [place] Medicaid [address] [place] [address] [id number] [place] Awad Self - patient is the insured Medical (General) History Medical History History ICD Code seizure disorder HTN gerd Surgical History Surgery Date(Month/Year) FRITZ w/o uterine fibroids 2010 carpal tunnel repair bilat resection flank lipoma in 20s Hospitalization History Reason Date(Month/Year) [facility] (yc hiatry-dreamy state, hallucinations) x 5 d 2017
--- OUTSIDE RECORDS SUMMARY | 2025-03-27 15:30 | XMS_ITS | Encounter Summary ---
Author Organization [facility] Address [address] [place] [address] Care Team Providers Care Operations Recruiter Name Role Phone Whit Thakur Primary Care Provider [phone] Encounter Details Date Type Department Care Team (Late st Contact Info) Description 07/19/2021 myChart Message [facility] Neurology Clinic [address] [place] [address] Jackie Ritchie MA Medication question Social History [...] Description 12/02/2025 10:00 AM EDT Office Visit [facility] Neurology Clinic [address] [place] [address] Carolyn Bates MD [address] [place] [address] documented as of this encounter Visit Diagnoses Not on filedocumented in this encounter Care Teams Operations Recruiter Relationship Specialty Start Date End Date Whit Thakur [address] [place] [phone] PCP - General Family Medicine 10/06/24 documented as of this encounter
--- OUTSIDE RECORDS SUMMARY | 2025-03-27 15:30 | XMS_ITS | Encounter Summary ---
Author Organization [facility] Address [address] [place] [address] Care Team Providers Care Echocardiography Radiology Technologist Name Role Phone Whit Thakur Primary Care Provider [phone] Reason for Visit * Reason Onset Date Comments Patient has questions 04/27/2021 Pt of Ricky Devries; Pt of [place] Encounter Details Date Type Department Care Team (Late st Contact Info) Description 04/27/2021 Telephone [facility] Neurology Clinic [address] [place] [address] Telephone Intake, Staff Patient has questions [...] 12/02/2025 10:00 AM EDT Office Visit [facility] Neurology Clinic [address] [place] [address] Carolyn Bates MD [address] [place] [address] documented as of this encounter Visit Diagnoses Not on filedocumented in this encounter Care Teams Echocardiography Radiology Technologist Relationship Specialty Start Date End Date Whit Thakur [address] [place] [address] PCP - General Family Medicine 10/06/24 documented as of this encounter
--- OUTSIDE RECORDS SUMMARY | 2025-03-27 15:30 | XMS_ITS | Clinical Summary ---
Author Organization [facility] Address [address] [place] [address] Care Team Providers Care Experimental Box Tester Name Role Phone Whit Thakur Primary Care Provider [phone] Allergies Active Allergy Reactions Criticality Noted Date [...] different from the original. PT-1 Request Number [id number] is Approved, 2 visits per month for [...] appointments with the headache/migraine providers here at [facility]. She has since found a new provider for headache/migraine in the [facility] area who will be doing her [...] me now that I have returned to [facility]. Regarding the episodes that she calls [...] HD: Reportedly was evaluated at a genetics center/[facility] in [place], but those records are not available. Plans to be evaluated at genetics clinic at [email or web address] - Continue Lamotrigine 200 mg twice daily [...] patient would prefer somewhere closer to home ([place]) - Ambulatory EEG pending - Seizure/Fall precautions [...] Description 12/02/2025 10:00 AM EDT Office Visit [facility] Neurology Clinic [address] [place] [address] Carolyn Bates MD [address] [place] [address] Health Maintenance Due Date Last Done Comments [...] 11/03/2023, 07/14/2023 Medical Devices Implanted Type Area Tea Taster Device Identifier Shelf Expiration Date Model / Serial / Lot Device Closure Vascular 5fr Vascade - [id number] Implanted:Qty: 1 on 11/30/2022 at [facility] Implant [employer] EMMY 08/22/2024 [id number] [id number] / / [id number] Procedures * Due to [place] law, this organization might not be sharing negative HIV tests. Procedure Name Priority Date/Time Associated Diagnosis Comments COMPREHENSIVE METABOLIC PANEL Routine 12/13/2023 2:02 PM EDT Seizure-like activity from Last 3 Months or Most Recently Relevant to Health Maintenance Results * Due to [facility] law, this organization might not be sharing negative HIV tests. * (ABNORMAL) Comprehensive Metabolic Panel (12/13/2023 2:02 PM EDT) NA 139 135 - 145 mmol/L 12/13/2023 3:29 PM EDT [facility] K 4.6 3.5 - 5.3 mmol/L 12/13/2023 3:29 PM EDT [facility] Cl 100 98 - 107 mmol/L 12/13/2023 3:29 PM EDT [facility] CO2 28 24 - 32 mmol/L 12/13/2023 3:29 PM EDT [facility] Anion Gap 11 5 - 15 12/13/2023 3:29 PM EDT [facility] Glucose 112(H) 65 - 99 mg/dL 12/13/2023 3:29 PM EDT [facility] Creatinine 0.68 0.50 - 1.20 mg/dL 12/13/2023 3:29 PM EDT [facility] Calcium 10.5 8.6 - 10.5 mg/dL 12/13/2023 3:29 PM EDT [facility] Total Protein 6.9 6.0 - 8.0 g/dL 12/13/2023 3:29 PM EDT [facility] Albumin 4.8 3.5 - 5.2 g/dL 12/13/2023 3:29 PM EDT [facility] Bilirubin, Total 0.2 0.2 - 1.2 mg/dL 12/13/2023 3:29 PM EDT [facility] Alkaline Phosphatase 71 35 - 129 U/L 12/13/2023 3:29 PM EDT [facility] AST 16 10 - 40 U/L 12/13/2023 3:29 PM EDT [facility] ALT 22 10 - 40 U/L 12/13/2023 3:29 PM EDT [facility] BUN 10 7 - 23 mg/dL 12/13/2023 3:29 PM EDT [facility] eGFR >90 >=60 mL/min/1. 73m2 12/13/2023 3:29 PM EDT [facility] Comment: The estimated glomerular [...] - 4.2 g/dL 12/13/2023 3:29 PM EDT [facility] A/G Ratio 2.3 1.5 - 3.0 12/13/2023 3:29 PM EDT [facility] Blood Structure of peripheral vein / Unknown Venipuncture / Unknown 12/13/2023 2:02 PM EDT 12/13/2023 2:31 PM EDT us Keith Conrad MD LAB BLOOD ORDERABLES Final Resul t [email or web address] [address] [place] [address], from Last 3 Months or Most Recently Relevant to Health Maintenance Insurance [place]E [place] [id number] Advance Directives Documents on File Type Date Recorded Patient Beef Cattle Grazier Expl anation Health Care Proxy 11/24/2022 1:13 PM HEALTH CARE PROXY SCANNED IN Care Teams Experimental Box Tester Relationship Specialty Start Date End Date Whit Thakur [address] [place] [address] PCP - General Family Medicine 10/06/24
== END 2025-03-27 14:35 | disposition home or self-care (01) ==
LOC: HO.MAMMO 14:34
PROVIDERS: PCP Nurse Practitioner Family; Visit Provider Internal Medicine
DX: Z12.31 Encounter for screening mammogram for malignant neoplasm of breast (principal)
CPT/HCPCS: 77063; 77067

== ENCOUNTER → 2025-03-27 14:45 | Outpatient (BNV) | payer OTHER, SELFPAY | PROVIDERS: PCP Nurse Practitioner Family; Visit Provider Internal Medicine | DX: Z12.31 Encounter for screening mammogram for malignant neoplasm of breast (principal) | CPT/HCPCS: 77063; 77067 ==

== ENCOUNTER 2025-04-06 09:45 | Outpatient (AMB) | payer OTHER, SELFPAY ==
--- NOTE | 2025-04-06 09:42 | A.OFFPC_ITS ---
Intake Visit Reasons: zepbound request Intake Note: patient here for Telehealth visit requesting Zepbound. Junior Loan Processor Required: No Is last menstrual period known: No Post menopausal: No Patient : No Allergies baclofen Allergy (Intermediate, Verified 04/06/25 09:43) Dizziness/nausea latex (LATEX) Allergy (Intermediate, Verified 04/06/25 09:43) Rash codeine (Codeine) Adverse Reaction (Intermediate, Verified 04/06/25 09:43) Nausea and Vomiting Tobacco use date assessed: 04/06/25 Dental Screening Dental Screen Date: 04/06/25 Did you have a dental visit in the last 12 months?: Yes Did you have a dental problem in the last 6 months where you did not have access to dental care?: No Was dental information given to patient?: Patient has dentist HPI HPI Comments History of Present Illness Details 54-year-old female [facility]. Her recent weight is 216 lb, BMI is 37.1. She admits to taking her medications as prescribed without adverse reactions. No acute symptoms at this time. [facility] Medical History (Updated 04/06/25 @ 10:09 by Whit Thakur CNP) delivery delivered Lipoma of back Osteoarthritis Anesthesia complication Pulmonary nodules Hyperlipidemia Chronic cluster headache, intractable Seizure disorder Migraine Acid reflux HTN (hypertension) Surgical History Status post total left knee replacement History of esophagogastroduodenoscopy (EGD) H/O colonoscopy History of carpal tunnel release Hx of hysterectomy Family History Mother Alcohol abuse FH: mental illness Father Alcohol abuse Brother Alcohol abuse FH: mental illness Maternal Grandfather Alcohol abuse Sister Alcohol abuse FH: mental illness Maternal Grandmother FH: mental illness Social History Household Members: Children Household Members Other:: patient lives with her son, sister lives below Housing: House Housing Other:: multifamily Are you a primary personal care assistant to a significant other at home: No Do you presently have visiting nurse or other home services: Yes (VNA, speech therapy,PT/OT) Alcohol intake: never Patient Tobacco Use Status: Former Tobacco user Tobacco use type: Cigarette Years Smoked: 9 e-Cigarette/Vaping Use: Never Used Second Hand Smoke Exposure: No Advance Directives Date on File: 07/19/09 Patient : No service: No 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al status: disabled 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 Sin Chavira, Carolyn Amaro, Soham Elder and colleagues, with an educational kimberly from [employer]. Review of Systems Const Details: Denies chills, Denies fatigue, Denies fever(s), Denies headache(s) and Denies weakness Cardiac Denies chest pain, Denies claudication, Denies leg edema, Denies lightheadedness, Denies palpitations, Denies dyspnea, Denies dyspnea on exertion, Denies orthopnea and Denies other (Loss of consciousness) Resp Denies cough, Denies excessive phlegm production, Denies dyspnea, Denies dyspnea on exertion, Denies snoring and Denies wheezing Physical exam (Primary Care) Tobacco/Smoking Status: Tobacco use Status Tobacco use date assessed 04/06/25 04/06/25 09:44 Patient Tobacco Use Status Former Tobacco user 04/06/25 09:44 Tobacco use type Cigarette 04/06/25 09:44 e-Cigarette/Vaping Use Never Used 04/06/25 09:44 Thrive Assessment: Date of Thrive Assessment Date Thrive assessed 07/07/24 04/06/25 09:44 Const Other: Patient is alert and oriented x3 Telehealth Telehealth Telehealth Platform: Telephone Location of provider rendering services: practice address Location of patient: address on file Patient Identification confirmed using: Name, : Yes Telehealth method: voice only Patient verbally consented to treatment: Yes Patient verbally consented to billing insurance company: Yes Patient informed of any privacy concerns related to visit: Yes Coding Level of Care Code Tele Est Pt Level 3 (95090) Diagnoses Encounter for weight management Z76.89 Time Spent (min) 15 Assessment & Plan Assessment & Plan (1) Encounter for weight management: Code(s): Z76.89 - Persons encountering health services in other specified circumstances Category: Medical Plan: Recent weight is 216 lb, BMI is 37.1. At this time, she prefers a referral to weight management clinic versus Zepbound which may not be covered by her health plan. Healthy diet and routine exercise encouraged. Referred to [facility] with management clinic. Follow-up as needed. Verbalized understanding and agreed with the plan. Orders: Orders Lipid Panel 2 Months E78.5 - Hyperlipidemia, unspecified Referrals Medical Weight Management Referral E66.9 - Obesity, unspecified
--- OUTSIDE RECORDS SUMMARY | 2025-04-06 11:11 | XMS_ITS | Encounter Summary ---
Author Organization [facility] Address [address] [place] [address] Care Team Providers Care Asphalt Distributor Operator Name Role Phone Whit Thakur Primary Care Provider [phone] Encounter Details Date Type Department Care Team (Late st Contact Info) Description 07/22/2021 Telephone [facility] Neurology Clinic [address] [place] [address] Telephone Intake, Staff Social History Tobacco [...] regarding Nancy. Pt may be reached at [phone] documented in this encounter Plan of Treatment Upcoming Encounters Date Type Department Care Team (Late st Contact Info) Description 12/02/2025 10:00 AM EDT Office Visit [facility] Neurology Clinic [address] [place] [address] [phone] Carolyn Bates MD [address] [place] [address] [phone] documented as of this encounter Visit Diagnoses Not on filedocumented in this encounter Care Teams Asphalt Distributor Operator Relationship Specialty Start Date End Date Whit Thakur [address] [place] [address] PCP - General Family Medicine 10/06/24 documented as of this encounter
--- OUTSIDE RECORDS SUMMARY | 2025-04-06 11:11 | XMS_ITS | Encounter Summary ---
Author Organization [facility] Address [address] [place] [address] Care Team Providers Care Patient Escort Name Role Phone Whit Thakur Primary Care Provider [phone] Reason for Visit * Reason Onset Date Comments Med Refill 07/15/2021 Encounter Details Date Type Department Care Team (Late st Contact Info) Description 07/15/2021 Telephone [facility] Neurology Clinic [address] [place] [address] Telephone Intake, Staff Med Refill Social [...] Description 12/02/2025 10:00 AM EDT Office Visit [facility] [address] [place] [address] Carolyn Bates MD [address] [place] [address] documented as of this encounter Visit Diagnoses Not on filedocumented in this encounter Care Teams Patient Escort Relationship Specialty Start Date End Date Whit Thakur [address] [place] [address] PCP - General Family Medicine 10/06/24 documented as of this encounter
--- OUTSIDE RECORDS SUMMARY | 2025-04-06 11:11 | XMS_ITS | Encounter Summary ---
Author Organization [facility] Address [address] [place] [address] Care Team Providers Care Varnish Supervisor Name Role Phone Whit Thakur Primary Care Provider [phone] Encounter Details Date Type Department Care Team (Late st Contact Info) Description 03/22/2022 Telephone [facility] [address] [place] [address] [phone] Telephone Intake, Staff Social History Tobacco Use [...] - 03/27/2022 10:38 AM EDT PT-1 Number: [id number] Neurology Clinic - EXP: 03/23/2023 Treatment Details [...] Description 12/02/2025 10:00 AM EDT Office Visit [facility] [address] [place] [address] Carolyn Bates MD [address] [place] [address] documented as of this encounter Visit Diagnoses Not on filedocumented in this encounter Care Teams Varnish Supervisor Relationship Specialty Start Date End Date Whit Thakur [address] [place] [address] PCP - General Family Medicine 10/06/24 documented as of this encounter
--- OUTSIDE RECORDS SUMMARY | 2025-04-06 11:11 | XMS_ITS | Clinical Summary ---
Author Organization [facility] Address [address] [place] [address] Care Team Providers Care Trail Maintenance Worker Name Role Phone Whit Thakur Primary Care Provider [phone] Allergies Active Allergy Reactions Criticality Noted Date [...] Active lamoTRIgine (LaMICtal) 25 mg tabletIndications :Seizure-like activity,Intracta ble chronic migraine without aura and without status [...] DR (DEPAKOTE) 250 mg EC tabletIndications :Seizure-like activity,Intracta ble chronic migraine without aura and without status migrainosus Take 2 tablets (500 mg total) by mouth every morning AND 2 tablets (500 mg total) every evening. 360 tablet 3 5 Active gabapentin (NEURONTIN) 600 mg tabletIndications :Seizure-like activity,Intracta ble chronic migraine without aura and without status migrainosus TAKE 2 TABLETS (1,200 MG TOTAL) BY MOUTH 3 TIMES A DAY 540 tablet 3 5 Active Active Problems Patient Care Coordination No te Formatting of this note migh t be different from the original. PT-1 Request Number [id number] is Approved, 2 visits per month for [...] appointments with the headache/migraine providers here at [facility]. She has since found a new provider for headache/migraine in the [facility] area who will be doing her [...] me now that I have returned to [facility]. Regarding the episodes that she calls [...] HD: Reportedly was evaluated at a genetics center[facility] in [place], but those records are not available. Plans to be evaluated at genetics clinic at [facility]. - Continue Lamotrigine 200 mg twice [...] patient would prefer somewhere closer to home ([place]) - Ambulatory EEG pending - Seizure/Fall precautions [...] Description 12/02/2025 10:00 AM EDT Office Visit [facility] [address] [place] [address] Carolyn Bates MD [address] [place] [address] Health Maintenance Due Date Last Done Comments [...] 11/03/2023, 07/14/2023 Medical Devices Implanted Type Area Sports Equipment Supervisor Device Identifier Shelf Expiration Date Model / Serial / Lot Device Closure Vascular 5fr Vascade - [id number] Implanted:Qty: 1 on 11/30/2022 at [facility] Implant [employer] EMMY 08/22/2024 [id number] / / [id number] Procedures * Due to [place] [employer] law, this organization might not be sharing negative HIV tests. Procedure Name Priority Date/Time Associated Diagnosis Comments COMPREHENSIVE METABOLIC PANEL Routine 12/13/2023 2:02 PM EDT Seizure-like activity from Last 3 Months or Most Recently Relevant to Health Maintenance Results * Due to [facility] law, this organization might not be sharing negative HIV tests. * (ABNORMAL) Comprehensive Metabolic Panel (12/13/2023 2:02 PM EDT) NA 139 135 - 145 mmol/L 12/13/2023 3:29 PM EDT [facility] K 4.6 3.5 - 5.3 mmol/L 12/13/2023 3:29 PM EDT [facility] Cl 100 98 - 107 mmol/L 12/13/2023 3:29 PM EDT [facility] CO2 28 24 - 32 mmol/L 12/13/2023 3:29 PM EDT [facility] Anion Gap 11 5 - 15 12/13/2023 3:29 PM EDT [facility] Glucose 112(H) 65 - 99 mg/dL 12/13/2023 3:29 PM EDT [facility] Creatinine 0.68 0.50 - 1.20 mg/dL 12/13/2023 3:29 PM EDT [facility] Calcium 10.5 8.6 - 10.5 mg/dL 12/13/2023 3:29 PM EDT [facility] Total Protein 6.9 6.0 - 8.0 g/dL 12/13/2023 3:29 PM EDT [facility] Albumin 4.8 3.5 - 5.2 g/dL 12/13/2023 3:29 PM EDT [facility] Bilirubin, Total 0.2 0.2 - 1.2 mg/dL 12/13/2023 3:29 PM EDT [facility] Alkaline Phosphatase 71 35 - 129 U/L 12/13/2023 3:29 PM EDT [facility] AST 16 10 - 40 U/L 12/13/2023 3:29 PM EDT [facility] ALT 22 10 - 40 U/L 12/13/2023 3:29 PM EDT [facility] BUN 10 7 - 23 mg/dL 12/13/2023 3:29 PM EDT [facility] eGFR >90 >=60 mL/min/1. 73m2 12/13/2023 3:29 PM EDT [facility] Comment: The estimated glomerular [...] - 4.2 g/dL 12/13/2023 3:29 PM EDT [facility] A/G Ratio 2.3 1.5 - 3.0 12/13/2023 3:29 PM EDT [facility] Blood Structure of peripheral vein / Unknown Venipuncture / Unknown 12/13/2023 2:02 PM EDT 12/13/2023 2:31 PM EDT us Keith Conrad MD LAB BLOOD ORDERABLES Final Resul t [facility] [address] [place] [address], from Last 3 Months or Most Recently Relevant to Health Maintenance Insurance [id number] Advance Directives Documents on File Type Date Recorded Patient Spinning Lathe Operator Hydraulic Expl anation Health Care Proxy 11/24/2022 1:13 PM HEALTH CARE PROXY SCANNED IN Care Teams Trail Maintenance Worker Relationship Specialty Start Date End Date Whit Thakur [address] [place] [address] PCP - General Family Medicine 10/06/24
--- OUTSIDE RECORDS SUMMARY | 2025-04-06 11:11 | XMS_ITS | Encounter Summary ---
Author Organization [facility] Address [address] [place] [address] Care Team Providers Care Information Services Tech Name Role Phone Whit Thakur Primary Care Provider Reason for Visit * Reason Onset Date Comments Send message to Dr. Conrad 04/04/2021 Pt of Conrad EEG home device not working 04/04/2021 Encounter Details Date Type Department Care Team (Late st Contact Info) Description 04/04/2021 Telephone [facility] [address] [place] [address] Telephone Intake, Staff Send message to [...] technical difficulty with the EEG device the [facility] took it back. The pt neverhad the EEG reading started before the device issue. She would like a new device. Can we have a device sent to her in the mail? #[phone] * Telephone Encounter - Siomara Meghan - [...] be reached at her home number at [phone]. Thank you documented in this encounter Plan of Treatment Upcoming Encounters Date Type Department Care Team (Late st Contact Info) Description 12/02/2025 10:00 AM EDT Office Visit [facility] [address] [place] [address] Carolyn Bates MD [address] [place] [address] documented as of this encounter Visit Diagnoses Not on filedocumented in this encounter Care Teams Information Services Tech Relationship Specialty Start Date End Date Whit Thakur [address] [place] [address] PCP - General Family Medicine 10/06/24 documented as of this encounter
--- OUTSIDE RECORDS SUMMARY | 2025-04-06 11:11 | XMS_ITS | Encounter Summary ---
Author Organization [facility] Address [address] [place] [address] Care Team Providers Care Environmental Conflict Manager Name Role Phone Whit Thakur Primary Care Provider [phone] Encounter Details Date Type Department Care Team (Late st Contact Info) Description 01/11/2021 myChart Message [facility] [address] [place] [address] Iván Clinton MD [address] [place] [phone] Test Results Question Social History Tobacco Use [...] Description 12/02/2025 10:00 AM EDT Office Visit [facility] [address] [place], [place] [phone] Carolyn Bates MD [address] [place], [place] [phone] documented as of this encounter Visit Diagnoses Not on filedocumented in this encounter Care Teams Environmental Conflict Manager Relationship Specialty Start Date End Date Whit Thakur [address] [place] [address] PCP - General Family Medicine 10/06/24 documented as of this encounter
--- OUTSIDE RECORDS SUMMARY | 2025-04-06 11:11 | XMS_ITS | Encounter Summary ---
Author Organization [facility] Address [address] [place] [address] Care Team Providers Care Mail Handlers Supervisor Name Role Phone Whit Thakur Primary Care Provider [phone] Reason for Visit * Reason Onset Date Comments request to speak with nurse 04/18/2021 Dr Mumtaz cochran med question 04/18/2021 Encounter Details Date Type Department Care Team (Late st Contact Info) Description 04/18/2021 Telephone [facility] [address] [place] [address] Telephone Intake, Staff request to speak [...] [place] [facility] [place] [facility] She will speak with her pcp about potential clinic. She didn't have any other questions at this time. #[phone] * Telephone Encounter - Sharon Bay RN - 04/18/2021 3:09 PM EDT Pt called to report that the PCP refused to prescribe the diclofenac for the pt that is a neurologymedication. The pt stated that her previous neurologist Dr Arias from [facility] is who originally prescribed it for [...] call back from nurse Katherine Keita # [phone] Please route your response back to the [facility] Neu[facility] Admin Staff Pool. Thank you documented in this encounter Plan of Treatment Upcoming Encounters Date Type Department Care Team (Late st Contact Info) Description 12/02/2025 10:00 AM EDT Office Visit [facility] [address] [place], [place] [address] Carolyn Bates MD [address] [place] [address] [phone] documented as of this encounter Visit Diagnoses Not on filedocumented in this encounter Care Teams Mail Handlers Supervisor Relationship Specialty Start Date End Date Whit Thakur [address] [place] [phone] PCP - General Family Medicine 10/06/24 documented as of this encounter
--- OUTSIDE RECORDS SUMMARY | 2025-04-06 11:11 | XMS_ITS | Encounter Summary ---
Author Organization [facility] Address [address] [place] [address] Care Team Providers Care Diabetes Territory Manager Name Role Phone Whit Thakur Primary Care Provider [phone] Reason for Visit * Reason Onset Date Comments cs appointment new botox 11/29/2022 Encounter Details Date Type Department Care Team (Late st Contact Info) Description 11/29/2022 Telephone [facility] Central Scheduling Department [address] [place] [address] Telephone Intake, Staff cs appointment new botox [...] to schedule appointment. DT send TE Kenya: [phone] Thank you documented in this encounter Plan of Treatment Upcoming Encounters Date Type Department Care Team (Late st Contact Info) Description 12/02/2025 10:00 AM EDT Office Visit [facility] [address] [place] [address] Carolyn Bates MD [address] [place] [address] documented as of this encounter Visit Diagnoses Not on filedocumented in this encounter Care Teams Diabetes Territory Manager Relationship Specialty Start Date End Date Whit Thakur [address] [place] [address] PCP - General Family Medicine 10/06/24 documented as of this encounter
--- OUTSIDE RECORDS SUMMARY | 2025-04-06 11:11 | XMS_ITS | Encounter Summary ---
Author Organization [facility] Address [address] [place] [address] Care Team Providers Care Production Quality Manager Name Role Phone Whit Thakur Primary Care Provider [phone] Encounter Details Date Type Department Care Team (Late st Contact Info) Description 03/01/2021 Telephone [facility] [address] [place] [address] Telephone Intake, Staff Social History Tobacco [...] Description 12/02/2025 10:00 AM EDT Office Visit [facility] [address] [place] [address] Carolyn Bates MD [address] [place] [address] documented as of this encounter Visit Diagnoses Not on filedocumented in this encounter Care Teams Production Quality Manager Relationship Specialty Start Date End Date Whit Thakur [address] [place] [address] PCP - General Family Medicine 10/06/24 documented as of this encounter
--- OUTSIDE RECORDS SUMMARY | 2025-04-06 11:11 | XMS_ITS | Encounter Summary ---
Author Organization [facility] Address [address] [place] [address] Care Team Providers Care Printer'S Devil Name Role Phone Whit Thakur Primary Care Provider Encounter Details Date Type Department Care Team (Late st Contact Info) Description 08/02/2022 Orders Only [facility] [address] [place] [address] Shantel Cardoza MD [address] [place], [place] [phone] Headache syndrome; Transient neurological symptoms Social History [...] Office Visit [facility] [address] [place], [place] [phone] Carolyn Bates MD [address] [place] [address] documented as of this encounter Results * Due to [place] state law, this organization might not be sharing negative HIV tests. * Ambulatory EEG (08/02/2022 12:38 PM EST) Narrative Shantel Cardoza MD - 08/02/2022 12:38 PM EST Shantel Cardoza MD 08/02/2022 2:32 PM [facility] 3-DAY AMBULATORY CONTINUOUS VIDEO-EEG REPORT [...] and placement protocol in person by an inspector hairspring truing for the purposes of recording long-term video [...] and referential electrode montages. The patient or tax revenue officer was instructed to keep an event log [...] discharges or ictal build up. Single Channel Palliative Care Nurse: Rhythm: regular Rate (typical): ~ 66 bpm [...] symptoms documented in this encounter Care Teams Printer'S Devil Relationship Specialty Start Date End Date Whit Thakur [address] [place] [address] PCP - General Family Medicine 10/06/24 documented as of this encounter
--- OUTSIDE RECORDS SUMMARY | 2025-04-06 11:11 | XMS_ITS | Encounter Summary ---
Author Organization [facility] Address [address] [place] [address] Care Team Providers Care Operator Vacuum Name Role Phone Whit Thakur Primary Care Provider [phone] Encounter Details Date Type Department Care Team (Late st Contact Info) Description 03/02/2021 Telephone [facility] [address] [place] [address] [phone] Telephone Intake, Staff Social History Tobacco Use [...] Description 12/02/2025 10:00 AM EDT Office Visit [facility] [address] [place] [address] Carolyn Bates MD [address] [place] [address] documented as of this encounter Visit Diagnoses Not on filedocumented in this encounter Care Teams Operator Vacuum Relationship Specialty Start Date End Date Whit Thakur [address] [place] [address] PCP - General Family Medicine 10/06/24 documented as of this encounter
--- OUTSIDE RECORDS SUMMARY | 2025-04-06 11:11 | XMS_ITS | Encounter Summary ---
Author Organization [facility] Address [address] [place] [address] Care Team Providers Care Dry House Wheeler Name Role Phone Whit Thakur Primary Care Provider [phone] Reason for Visit * Reason Onset Date Comments Patient has questions 04/27/2021 Pt of Ricky Devries; Pt of [place]amaria Encounter Details Date Type Department Care Team (Late st Contact Info) Description 04/27/2021 Telephone [facility] [address] [place] [address] Telephone Intake, Staff Patient has questions [...] Description 12/02/2025 10:00 AM EDT Office Visit [facility] [address] [place] [address] Carolyn Bates MD [address] [place] [address] documented as of this encounter Visit Diagnoses Not on filedocumented in this encounter Care Teams Dry House Wheeler Relationship Specialty Start Date End Date Whit Thakur [address] [place] [address] PCP - General Family Medicine 10/06/24 documented as of this encounter
--- OUTSIDE RECORDS SUMMARY | 2025-04-06 11:11 | XMS_ITS | Encounter Summary ---
Author Organization [facility] Address [address] [place] [address] Care Team Providers Care Assembly Line Machine Operator Name Role Phone Whit Thakur Primary Care Provider [phone] Encounter Details Date Type Department Care Team (Late st Contact Info) Description 07/19/2021 myChart Message [facility] [address] [place] [address] Jackie Ritchie [place] Medication question Social History [...] Description 12/02/2025 10:00 AM EDT Office Visit [facility] [address] [place] [address] Carolyn Bates MD [address] [place] [address] documented as of this encounter Visit Diagnoses Not on filedocumented in this encounter Care Teams Assembly Line Machine Operator Relationship Specialty Start Date End Date Whit Thakur [address] [place] [phone] PCP - General Family Medicine 10/06/24 documented as of this encounter
--- OUTSIDE RECORDS SUMMARY | 2025-04-06 11:12 | XMS_ITS | Patient Health Record ---
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, intractable, without status epilepticus (G40.219) Active confirmed Problem Chronic intractable migraine without aura (60880486489861 5) Chronic migraine without aura, intractable, with status migrainosus (G43.711) Active confirmed Problem Transient ischemic attack (976898668) 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 Plan Of Treatment No Information Insurance Providers Payer Name Payer Address Payer Phone Subscriber Number Group Number Insured Name Patient Relationship to Insured Coverage Start Date Coverage End Date [place] Medicaid [address] [place] [address] [id number] Kenya Awad Self - patient is the insured Medical (General) History Medical History History ICD Code seizure disorder HTN gerd Surgical History Surgery Date(Month/Year) FRITZ w/o uterine fibroids 2010 carpal tunnel repair bilat resection flank lipoma in 20s Hospitalization History Reason Date(Month/Year) [facility] (yc hiatry-dreamy state, hallucinations) x 5 d 2017
--- OUTSIDE RECORDS SUMMARY | 2025-04-06 11:12 | XMS_ITS | Clinical Summary ---
Author Organization [facility] Address [address] [place] [address] Phone Care Team Providers Care Technical Programs Manager Name Role Phone Physician, No Pcp Primary [...] 09/04/2023 Venous insufficiency 09/04/2023 Overview (04/29/2024): Per [facility] records. Carpal tunnel syndrome 04/25/2023 Chronic headache 04/25/2023 GERD (gastroesophageal reflux disease) HTN (hypertension) 04/25/2023 Memory changes 04/25/2023 Mixed incontinence 04/25/2023 Overview (04/29/2024): Last Assessment & Plan: Per [facility] records Obesity (BMI 35.0-39.9 without comorbidity) 04/02 Seizure (CMS/[facility] V24, CMS/[facility] V28) 04/25/2023 Immunizations Immunization Administration Dates Next Due Moderna (age 6mo [...] DX:Dyspare unia in female Family history of Luquillo's disease DX:Family history of Luquillo's disease GERD (gastroesophageal reflux disease) DX:GERD (gastroesophageal reflux disease) Mixed hyperlipidemia DX:Mixed hy perlipidemia Essential (primary) hypertension DX:Essential (primary) hypertension Mixed incontinence DX:Mixed inco ntinence Seizure disorder (CMS/HCC V2 4, CMS/[facility] V28) DX:Seizure disorder (HCC) Venous [...] Health Maintenance Due Date Last Done Comments Colorectal Cancer Screening: Colonoscopy 1969 Hepatitis B Vaccines (1 of 3 - 19+ 3-dose series) 1988 Cervical Cancer Screening: Pap Smear 1990 Pneumococcal Vaccine: 50+ Years (1 of 1 - PCV) 2019 HIV Screening 07/27/2023 Medicare Annual Wellness Visit 07/27/2023 Social Influencers of Health Screening 07/27/2023 Depression Screening 07/02/2024 Hypertension/CHF/CAD Annual BMP Blood Test 12/12/2024 12/13/2023, 12/13/2023 COVID-19 Vaccine ( season) 2025 09/16/2022, 07/04/2021, 11/25/2020, Additional history exists Influenza Vaccine (#1) 2025 , 07/04/2021, 05/11/2020, Additional history exists Breast Cancer Screening 03/27/2027 03/27/2025, 03/27 Cholesterol Screening (Lipid Panel) 08/06/2028 08/06/2023 DTaP,Tdap,and [...] Procedure Name Priority Date/Time Associated Diagnosis Comments EXTERNAL MAMMOGRAM REPORT 03/27/2025 EXTERNAL MAMMOGRAM REPORT 03/27/2025 ANNUAL BMP BLOOD TEST Routine 12/13/2023 HEPATITIS C SCREENING Routine 08/06/2023 LIPID PANEL Routine 08/06/2023 from Last 3 Months or Most Recently Relevant to Health Maintenance Results * External Mammogram Report (03/27/2025) Only the most recent of2 resultswithin the time period is included. Anatomical Region Laterality Modality Mammography Provider [facility] BI PROCEDURES Final Result * Annual BMP Blood Test (12/13/2023) Annual BMP Blood Test Abstracted Historical Provider HEALTH MAINTENANCE Final Result * Hepatitis C Screening (08/06/2023) Pathologist [facility] Hepatitis C Screening Abstracted Historical Provider [facility] Final Result * (ABNORMAL) Lipid panel (08/06/2023) Pathologist [facility] LDL/HDL Ratio 5(A) 0 - 4 Triglycerides 157(A) 0 - 150 mg/dL Cholesterol 223(A) 0 - 200 mg/dL HDL 46 >=40 mg/dL LDL Cholesterol 146(A) 0 - 100 mg/dL Blood Venous blood specimen / Unknown Historical Provider LAB BLOOD ORDERABLES Ginna l Result from Last 3 Months or Most Recently Relevant to Health Maintenance [place] [id number] [facility] MEDICARE Member Subscriber Plan / Payer (Ef fective 2024-Present) Name:PANFILO FARLEY Relation to Subscriber:Self Name:Panfilo Farley Payer ID:[id number] Group ID:[id number] Type:Not on file Address: [place] [address] [address] [phone] [facility] MEDICAID Care Teams Technical Programs Manager Relationship Specialty Start Date End Date Physician, No Pcp PCP - General 05/27/24
--- OUTSIDE RECORDS SUMMARY | 2025-04-06 11:12 | XMS_ITS | Encounter Summary ---
Author Organization [facility] Address [address] [place] [address] Care Team Providers Care Child Psychologist Name Role Phone Whit Thakur Primary Care Provider [phone] Reason for Visit * Reason Onset Date Comments Referral Request 08/23/2021 Encounter Details Date Type Department Care Team (Late st Contact Info) Description 08/23/2021 Telephone [facility] Central Scheduling Department [address] [place] [address] Telephone Intake, Staff Referral Request Social History [...] a referral to a specialist. I tried hotel front desk clerk but was unable to get ahold of anyone. Please reach out to PT with any information. documented in this encounter Plan of Treatment Upcoming Encounters Date Type Department Care Team (Late st Contact Info) Description 12/02/2025 10:00 AM EDT Office Visit [facility] [address] [place], [place] [phone] Carolyn Bates MD [address] [place] [address] documented as of this encounter Visit Diagnoses Not on filedocumented in this encounter Care Teams Child Psychologist Relationship Specialty Start Date End Date Whit Thakur [address] [place] [address] PCP - General Family Medicine 10/06/24 documented as of this encounter
--- OUTSIDE RECORDS SUMMARY | 2025-04-06 11:12 | XMS_ITS | Encounter Summary ---
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 Conrad documented in this encounter Plan of Treatment Upcoming Encounters Date Type Department Care Team (Late st Contact Info) Description 12/02/2025 10:00 AM EDT Office Visit [facility] [address] [place], [place] [phone] Carolyn Bates MD [address] [place] [address] documented as of this encounter Visit Diagnoses Not on filedocumented in this encounter Care Teams Food Crops Farm Hand Relationship Specialty Start Date End Date Whit Thakur [address] [place] [address] PCP - General Family Medicine 10/06/24 documented as of this encounter
== END 2025-04-06 10:15 | disposition home or self-care (01) ==
LOC: HO.HMCFM 09:45
PROVIDERS: PCP Nurse Practitioner Family; Visit Provider Nurse Practitioner Family
DX: E66.9 Obesity, unspecified (principal); E78.5 Hyperlipidemia, unspecified

== ENCOUNTER 2025-04-30 09:02 | Outpatient (REF) | payer OTHER, SELFPAY ==
--- OUTSIDE RECORDS SUMMARY | 2025-04-30 10:06 | XMS_ITS | Encounter Summary ---
Author Organization [facility] Address [address] [place] [address] Care Team Providers Care Stevedore Dock Name Role Phone Whit Thakur Primary Care Provider [phone] Encounter Details Date Type Department Care Team (Late st Contact Info) Description 03/02/2021 Telephone [facility] [address] [place] [address] [phone] Telephone Intake, Staff Social History Tobacco Use [...] Description 12/02/2025 10:00 AM EDT Office Visit [facility] [address] [place] [address] Carolyn Bates MD [address] [place] [address] documented as of this encounter Visit Diagnoses Not on filedocumented in this encounter Care Teams Stevedore Dock Relationship Specialty Start Date End Date Whit Thakur [address] [place] [address] PCP - General Family Medicine 10/06/24 documented as of this encounter
--- OUTSIDE RECORDS SUMMARY | 2025-04-30 10:06 | XMS_ITS | Encounter Summary ---
Author Organization [facility] Address [address] [place] [address] Care Team Providers Care Photo Finish Photographer Name Role Phone Whit Thakur Primary Care Provider [phone] Reason for Visit * Reason Onset Date Comments Med Refill 07/15/2021 Encounter Details Date Type Department Care Team (Late st Contact Info) Description 07/15/2021 Telephone [facility] [address] [place] [address] Telephone Intake, Staff Med Refill Social [...] [facility] [address] [place] [address] Carolyn Bates MD [address] [place] [address] documented as of this encounter Visit Diagnoses Not on filedocumented in this encounter Care Teams Photo Finish Photographer Relationship Specialty Start Date End Date Whit Thakur [address] [place] [address] PCP - General Family Medicine 10/06/24 documented as of this encounter
--- OUTSIDE RECORDS SUMMARY | 2025-04-30 10:06 | XMS_ITS | Encounter Summary ---
Author Organization [facility] Address [address] [place] [address] Care Team Providers Care Animal Laboratory Technician Name Role Phone Whit Thakur Primary Care Provider [phone] Reason for Visit * Reason Onset Date Comments Patient has questions 04/27/2021 Pt of Ricky Devries; Pt of Anamaria Encounter Details Date Type Department Care Team (Late st Contact Info) Description 04/27/2021 Telephone [facility] [address] [place] [address] Telephone Intake, Staff Patient has questions [...] Description 12/02/2025 10:00 AM EDT Office Visit [facility] [address] [place] [address] Carolyn Bates MD [address] [place] [address] documented as of this encounter Visit Diagnoses Not on filedocumented in this encounter Care Teams Animal Laboratory Technician Relationship Specialty Start Date End Date Whit Thakur [address] [place] [address] PCP - General Family Medicine 10/06/24 documented as of this encounter
--- OUTSIDE RECORDS SUMMARY | 2025-04-30 10:06 | XMS_ITS | Encounter Summary ---
Author Organization [facility] Address [address] [place] [address] Care Team Providers Care Construction Driller Name Role Phone Whit Thakur Primary Care Provider [phone] Reason for Visit * Reason Onset Date Comments Referral Request 08/23/2021 Encounter Details Date Type Department Care Team (Late st Contact Info) Description 08/23/2021 Telephone [facility] Central Scheduling Department [address] [place] [address] Telephone Intake, Staff Referral Request Social History [...] referral to a specialist. I tried front services agent but was unable to get ahold of anyone. Please reach out to PT with any information. documented in this encounter Plan of Treatment Upcoming Encounters Date Type Department Care Team (Late st Contact Info) Description 12/02/2025 10:00 AM EDT Office Visit [facility] Neurology Clinic [address] [place], [place] [phone] Carolyn Bates MD [address] [place] [address] documented as of this encounter Visit Diagnoses Not on filedocumented in this encounter Care Teams Construction Driller Relationship Specialty Start Date End Date Whit Thakur [address] [place] [address] PCP - General Family Medicine 10/06/24 documented as of this encounter
--- OUTSIDE RECORDS SUMMARY | 2025-04-30 10:06 | XMS_ITS | Clinical Summary ---
Author Organization [facility] Address [address] [place] [address] Care Team Providers Care Film Critic Name Role Phone Whit Thakur Primary Care [...] different from the original. PT-1 Request Number [id number] is Approved, 2 visits per month for [...] appointments with the headache/migraine providers here at [facility]. She has since found a new [...] me now that I have returned to [facility]. Regarding the episodes that she calls [...] HD: Reportedly was evaluated at a genetics center/[facility] in [place], but those records are not available. Plans to be evaluated at genetics clinic at [facility]. - Continue Lamotrigine 200 mg [...] patient would prefer somewhere closer to home ([place]) - Ambulatory EEG pending - Seizure/Fall precautions at all times - Seizure and headache diary recommended - Genetic testing consultation scheduled. (+FH of HD) - Follow up in 3-4 months Resolved Problems Problem Noted Date Diagnosed Date Resolved Date Seizure 12/17/2020 12/13/2023 Family History Medical History Relation Name Comments COPD Father [place]'s disease Father Brain Aneurysm Maternal Grandmother Dementia [...] Description 12/02/2025 10:00 AM EDT Office Visit [facility] [address] [place] [address] Carolyn Bates MD [address] [place] [address] Health Maintenance Due Date Last Done Comments [...] 11/03/2023, 07/14/2023 Medical Devices Implanted Type Area Orthotist Or Prosthetist Device Identifier Shelf Expiration Date Model / Serial / Lot Device Closure Vascular 5fr Vascade - [id number] Implanted:Qty: 1 on 11/30/2022 at [facility] Implant [employer] EMMY 08/22/2024 [id number] / / [id number] Procedures * Due to [place] [employer] law, this organization might not be sharing negative HIV tests. Procedure Name Priority Date/Time Associated Diagnosis Comments COMPREHENSIVE METABOLIC PANEL Routine 12/13/2023 2:02 PM EDT Seizure-like activity from Last 3 Months or Most Recently Relevant to Health Maintenance Results * Due to [place] law, this organization might not be sharing negative HIV tests. * (ABNORMAL) Comprehensive Metabolic Panel (12/13/2023 2:02 PM EDT) NA 139 135 - 145 mmol/L 12/13/2023 3:29 PM EDT [facility] K 4.6 3.5 - 5.3 mmol/L 12/13/2023 3:29 PM EDT [facility] Cl 100 98 - 107 mmol/L 12/13/2023 3:29 PM EDT [facility] CO2 28 24 - 32 mmol/L 12/13/2023 3:29 PM EDT [facility] Anion Gap 11 5 - 15 12/13/2023 3:29 PM EDT [facility] Glucose 112(H) 65 - 99 mg/dL 12/13/2023 3:29 PM EDT [facility] Creatinine 0.68 0.50 - 1.20 mg/dL 12/13/2023 3:29 PM EDT [facility] Calcium 10.5 8.6 - 10.5 mg/dL 12/13/2023 3:29 PM EDT [facility] Total Protein 6.9 6.0 - 8.0 g/dL 12/13/2023 3:29 PM EDT [facility] Albumin 4.8 3.5 - 5.2 g/dL 12/13/2023 3:29 PM EDT [facility] Bilirubin, Total 0.2 0.2 - 1.2 mg/dL 12/13/2023 3:29 PM EDT [facility] Alkaline Phosphatase 71 35 - 129 U/L 12/13/2023 3:29 PM EDT [facility] AST 16 10 - 40 U/L 12/13/2023 3:29 PM EDT [facility] ALT 22 10 - 40 U/L 12/13/2023 3:29 PM EDT [facility] BUN 10 7 - 23 mg/dL 12/13/2023 3:29 PM EDT [facility] eGFR >90 >=60 mL/min/1. 73m2 12/13/2023 3:29 PM EDT [facility] Comment: The estimated glomerular [...] - 4.2 g/dL 12/13/2023 3:29 PM EDT [facility] A/G Ratio 2.3 1.5 - 3.0 12/13/2023 3:29 PM EDT [facility] Blood Structure of peripheral vein / Unknown Venipuncture / Unknown 12/13/2023 2:02 PM EDT 12/13/2023 2:31 PM EDT us Keith Conrad MD LAB BLOOD ORDERABLES Final Resul t [facility] [address] [place] [address], from Last 3 Months or Most Recently Relevant to Health Maintenance Insurance [id number] [id number] Advance Directives Documents on File Type Date Recorded Patient Oracle Brm Developer Expl anation Health Care Proxy 11/24/2022 1:13 PM HEALTH CARE PROXY SCANNED IN Care Teams Film Critic Relationship Specialty Start Date End Date Whit Thakur [address] [place] [address] PCP - General Family Medicine 10/06/24
--- OUTSIDE RECORDS SUMMARY | 2025-04-30 10:06 | XMS_ITS | Encounter Summary ---
Author Organization [facility] Address [address] [place] [address] Care Team Providers Care Wellfield Technician Name Role Phone Whit Thakur Primary Care Provider Reason for Visit * Reason Onset Date Comments Send message to Dr. Conrad 04/04/2021 Pt of Conrad EEG home device not working 04/04/2021 Encounter Details Date Type Department Care Team (Late st Contact Info) Description 04/04/2021 Telephone [facility] [address] [place] [address] Telephone Intake, Staff Send message to [...] difficulty with the EEG device the [facility] took it back. The pt neverhad the EEG reading started before the device issue. She would like a new device. Can we have a device sent to her in the mail? #[phone] * Telephone Encounter - Siomara Meghan - [...] be reached at her home number at [phone]. Thank you documented in this encounter Plan of Treatment Upcoming Encounters Date Type Department Care Team (Late st Contact Info) Description 12/02/2025 10:00 AM EDT Office Visit [facility] [address] [place] [address] Carolyn Bates MD [address] [place] [address] documented as of this encounter Visit Diagnoses Not on filedocumented in this encounter Care Teams Wellfield Technician Relationship Specialty Start Date End Date Whit Thakur [address] [place] [address] PCP - General Family Medicine 10/06/24 documented as of this encounter
--- OUTSIDE RECORDS SUMMARY | 2025-04-30 10:06 | XMS_ITS | Encounter Summary ---
Author Organization [facility] Address [address] [place] [address] Care Team Providers Care Human Resources File Clerk Name Role Phone Whit Thakur Primary Care Provider [phone] Encounter Details Date Type Department Care Team (Late st Contact Info) Description 03/22/2022 Telephone [facility] [address] [place] [address] [phone] Telephone Intake, Staff Social History Tobacco Use [...] - 03/27/2022 10:38 AM EDT PT-1 Number: [id number] Neurology Clinic - EXP: 03/23/2023 Treatment Details [...] 12/02/2025 10:00 AM EDT Office Visit [facility] [address] [place] [address] Carolyn Bates MD [address] [place] [address] documented as of this encounter Visit Diagnoses Not on filedocumented in this encounter Care Teams Human Resources File Clerk Relationship Specialty Start Date End Date Whit Thakur [address] [place] [address] PCP - General Family Medicine 10/06/24 documented as of this encounter
--- OUTSIDE RECORDS SUMMARY | 2025-04-30 10:06 | XMS_ITS | Encounter Summary ---
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 Conrad documented in this encounter Plan of Treatment Upcoming Encounters Date Type Department Care Team (Late st Contact Info) Description 12/02/2025 10:00 AM EDT Office Visit [facility] Clinic [address] [place], [place] [phone] Carolyn Bates MD [address] [place] [address] documented as of this encounter Visit Diagnoses Not on filedocumented in this encounter Care Teams Rn Licensed Practical Relationship Specialty Start Date End Date Whit Thakur [address] [place] [address] PCP - General Family Medicine 10/06/24 documented as of this encounter
--- OUTSIDE RECORDS SUMMARY | 2025-04-30 10:06 | XMS_ITS | Patient Health Record ---
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) Active confirmed Problem Chronic intractable migraine without aura (18396394848447 5) Chronic migraine without aura, intractable, with status migrainosus (G43.711) Active confirmed Problem Transient ischemic attack (398848548) 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 Plan Of Treatment No Information Insurance Providers Payer Name Payer Address Payer Phone Subscriber Number Group Number Insured Name Patient Relationship to Insured Coverage Start Date Coverage End Date [place] Medicaid [address] [place] [address] [id number] Kenya Awad Self - patient is the insured Medical (General) History Medical History History ICD Code seizure disorder HTN gerd Surgical History Surgery Date(Month/Year) FRITZ w/o uterine fibroids 2010 carpal tunnel repair bilat resection flank lipoma in 20s Hospitalization History Reason Date(Month/Year) [facility] (yc hiatry-dreamy state, hallucinations) x 5 d 2017
--- OUTSIDE RECORDS SUMMARY | 2025-04-30 10:06 | XMS_ITS | Encounter Summary ---
Author Organization [facility] Address [address] [place] [address] Care Team Providers Care Toxicologist Name Role Phone Whit Thakur Primary Care Provider [phone] Reason for Visit * Reason Onset Date Comments request to speak with nurse 04/18/2021 Dr Mumtaz cochran med question 04/18/2021 Encounter Details Date Type Department Care Team (Late st Contact Info) Description 04/18/2021 Telephone [facility] [address] [place] [address] Telephone Intake, Staff request to speak [...] have any other questions at this time. #[phone] * Telephone Encounter - Sharon Bay RN - 04/18/2021 3:09 PM EDT Pt called to report that the PCP refused to prescribe the diclofenac for the pt that is a neurologymedication. The pt stated that her previous neurologist Dr Arias from [facility] is who originally prescribed it for her. [...] call back from nurse Katherine Keita # [phone] Please route your response back to the [facility] Neurology Admin Staff Pool. Thank you documented in this encounter Plan of Treatment Upcoming Encounters Date Type Department Care Team (Late st Contact Info) Description 12/02/2025 10:00 AM EDT Office Visit [facility] [address] [place], [place] [phone] Carolyn Bates MD [address] [place] [address] [phone] documented as of this encounter Visit Diagnoses Not on filedocumented in this encounter Care Teams Toxicologist Relationship Specialty Start Date End Date Whit Thakur [address] [place] [phone] PCP - General Family Medicine 10/06/24 documented as of this encounter
--- OUTSIDE RECORDS SUMMARY | 2025-04-30 10:06 | XMS_ITS | Encounter Summary ---
Author Organization [facility] Address [address] [place] [address] Care Team Providers Care Shear Grinder Operator Name Role Phone Whit Thakur Primary Care Provider [phone] Encounter Details Date Type Department Care Team (Late st Contact Info) Description 08/02/2022 Orders Only [facility] [address] [place] [address] Shantel Cardoza MD [address] [place], [place] [phone] Headache syndrome; Transient neurological symptoms Social History [...] Description 12/02/2025 10:00 AM EDT Office Visit [facility] [address] [place], [place] [phone] Carolyn Bates MD [address] [place] [address] documented as of this encounter Results * Due to [place] state law, this organization might not be sharing negative HIV tests. * Ambulatory EEG (08/02/2022 12:38 PM EST) Narrative Shantel Cardoza MD - 08/02/2022 12:38 PM EST Shantel Cardoza MD 08/02/2022 2:32 PM [facility] 3-DAY AMBULATORY CONTINUOUS VIDEO-EEG REPORT Patient: [...] and placement protocol in person by an film process operator for the purposes of recording long-term [...] and referential electrode montages. The patient or pet caretaker was instructed to keep an event log [...] discharges or ictal build up. Single Channel Drafter Electronic: Rhythm: regular Rate (typical): ~ 66 bpm [...] symptoms documented in this encounter Care Teams Shear Grinder Operator Relationship Specialty Start Date End Date Whit Thakur [address] [place] [address] PCP - General Family Medicine 10/06/24 documented as of this encounter
--- OUTSIDE RECORDS SUMMARY | 2025-04-30 10:06 | XMS_ITS | Encounter Summary ---
Author Organization [facility] Address [address] [place] [address] Care Team Providers Care Stylist Apprentice Name Role Phone Whit Thakur Primary Care Provider [phone] Encounter Details Date Type Department Care Team (Late st Contact Info) Description 07/19/2021 myChart Message [facility] [address] [place] [address] Jackie Ritchie [place] Medication question Social History [...] Description 12/02/2025 10:00 AM EDT Office Visit [facility] [address] [place] [address] Carolyn Bates MD [address] [place] [address] documented as of this encounter Visit Diagnoses Not on filedocumented in this encounter Care Teams Stylist Apprentice Relationship Specialty Start Date End Date Whit Thakur [address] [place] [phone] PCP - General Family Medicine 10/06/24 documented as of this encounter
--- OUTSIDE RECORDS SUMMARY | 2025-04-30 10:06 | XMS_ITS | Encounter Summary ---
Author Organization [facility] Address [address] [place] [address] Care Team Providers Care Adjunct Instructor In Economics Name Role Phone Whit Thakur Primary Care Provider [phone] Encounter Details Date Type Department Care Team (Late st Contact Info) Description 01/11/2021 myChart Message [facility] [address] [place] [address] Iván Clinton MD [address] [place] [address] Test Results Question Social History Tobacco Use [...] Description 12/02/2025 10:00 AM EDT Office Visit [facility] [address] [place], [place] [phone] Carolyn Bates MD [address] [place], [place] [phone] documented as of this encounter Visit Diagnoses Not on filedocumented in this encounter Care Teams Adjunct Instructor In Economics Relationship Specialty Start Date End Date Whit Thakur [address] [place] [address] PCP - General Family Medicine 10/06/24 documented as of this encounter
--- OUTSIDE RECORDS SUMMARY | 2025-04-30 10:06 | XMS_ITS | Encounter Summary ---
Author Organization [facility] Address [address] [place] [address] Care Team Providers Care Foam Rubber Curer Name Role Phone Whit Thakur Primary Care Provider [phone] Reason for Visit * Reason Onset Date Comments cs appointment new botox 11/29/2022 Encounter Details Date Type Department Care Team (Late st Contact Info) Description 11/29/2022 Telephone [facility] Central Scheduling Department [address] [place] [address] Telephone Intake, Staff cs appointment new botox [...] to schedule appointment. DT send TE [place]: [phone] Thank you documented in this encounter Plan of Treatment Upcoming Encounters Date Type Department Care Team (Late st Contact Info) Description 12/02/2025 10:00 AM EDT [facility] [address] [place] [address] Carolyn Bates MD [address] [place] [address] documented as of this encounter Visit Diagnoses Not on filedocumented in this encounter Care Teams Foam Rubber Curer Relationship Specialty Start Date End Date Whit Thakur [address] [place] [address] PCP - General Family Medicine 10/06/24 documented as of this encounter
--- OUTSIDE RECORDS SUMMARY | 2025-04-30 10:06 | XMS_ITS | Encounter Summary ---
Author Organization [facility] Address [address] [place] [address] Care Team Providers Care Photographic Machine Operator Name Role Phone Whit Thakur Primary Care Provider [phone] Encounter Details Date Type Department Care Team (Late st Contact Info) Description 03/01/2021 Telephone [facility] [address] [place] [address] Telephone Intake, Staff Social History Tobacco [...] Description 12/02/2025 10:00 AM EDT Office Visit [facility] [address] [place] [address] Carolyn Bates MD [address] [place] [address] documented as of this encounter Visit Diagnoses Not on filedocumented in this encounter Care Teams Photographic Machine Operator Relationship Specialty Start Date End Date Whit Thakur [address] [place] [address] PCP - General Family Medicine 10/06/24 documented as of this encounter
--- OUTSIDE RECORDS SUMMARY | 2025-04-30 10:06 | XMS_ITS | Encounter Summary ---
Author Organization [facility] Address [address] [place] [address] Care Team Providers Care Wedger Name Role Phone Whit Thakur Primary Care Provider [phone] Encounter Details Date Type Department Care Team (Late st Contact Info) Description 07/22/2021 Telephone [facility] [address] [place] [address] Telephone Intake, Staff Social History Tobacco [...] regarding Nancy. Pt may be reached at [phone] documented in this encounter Plan of Treatment Upcoming Encounters Date Type Department Care Team (Late st Contact Info) Description 12/02/2025 10:00 AM EDT Office Visit [facility] [address] [place] [phone] Carolyn Bates MD [address] [place] [address] [phone] documented as of this encounter Visit Diagnoses Not on filedocumented in this encounter Care Teams Wedger Relationship Specialty Start Date End Date Whit Thakur [address] [place] [address] PCP - General Family Medicine 10/06/24 documented as of this encounter
[2025-04-30 11:52] LABS: Cholesterol 177 mg/dL (<200); HDL Cholesterol 44 mg/dL (>40); Triglycerides 131 mg/dL (<150)
== END 2025-04-30 09:03 | disposition home or self-care (01) ==
LOC: HO.HMGCLDS 09:02
PROVIDERS: PCP Nurse Practitioner Family; Visit Provider Nurse Practitioner Family
DX: E78.5 Hyperlipidemia, unspecified (principal)
CPT/HCPCS: 36415; 80061

== ENCOUNTER 2025-05-01 13:05 | Outpatient (AMB) | payer OTHER, SELFPAY ==
--- NOTE | 2025-05-01 13:13 | A.OFFPC_ITS ---
Vital Signs 05/01/25 13:21 05/01/25 13:49 Height 5 ft 4 in Weight 220 lb 4 oz BMI 37.8 BP 151/70 H 120/70 Blood Pressure Location Lt brachial Lt brachial Position Sitting Sitting Respiration 16 Pulse 62 Pulse Source Pulse Oximeter Temp 97.4 F Temp Source Oral Pulse Oximetry (%) 99 Oxygen Delivery Method Room Air Intake Visit Reasons: CPE Intake Note: patient here for CPE Technical Administrative Assistant Required: No Is last menstrual period known: No Post menopausal: No Patient : No Allergies baclofen Allergy (Intermediate, Verified 05/01/25 13:40) Dizziness/nausea latex (LATEX) Allergy (Intermediate, Verified 05/01/25 13:40) Rash codeine (Codeine) Adverse Reaction (Intermediate, Verified 05/01/25 13:40) Nausea and Vomiting Medication List - Last Reconciled 05/01/25 by Whit Thakur CNP acetaminophen 650 mg (2 x 325 mg) PO Q6H PRN 30 days amlodipine-benazepril 10-20 mg 1 cap PO DAILY 30 days atorvastatin 10 mg PO DAILY B-complex with vitamin C 1 tab PO DAILY divalproex 500 mg PO BID gabapentin 1,200 mg PO TID lamotrigine 200 mg PO BID meclizine 25 mg PO QID PRN omeprazole 40 mg PO DAILY propranolol 40 mg PO BID walker Folding front wheeled walker Tobacco use date assessed: 05/01/25 Dental Screening Dental Screen Date: 05/01/25 Did you have a dental visit in the last 12 months?: No Did you have a dental problem in the last 6 months where you did not have access to dental care?: No Was dental information given to patient?: Patient has dentist HPI HPI Comments History of Present Illness Details 55-year-old female presents for an exten ded physical exam. She admits to taking her medications as prescribed without adverse reactions. She notes that her health plan declined coverage for weight management with [employer]. Acute issue(s) - None Past Medical History - HTN, HLD, GERD, migraines, seizures. OA bilateral knees, obesity, pulmonary nodules Social History - Former smoker, quit 21 years ago. Does not vape. Does not drink alcohol. Denies recreational drug use - Has been making healthy dietary choice s. Exercises routinely. Generally sleep well Health maintenance - Last eye exam was a few years ago. She has an eye appointment scheduled with [facility] in 2 months - Last dental visit was 2 years ago. She has a dental appointment scheduled for next month - Last Tdap was in 11/03/2023 - Vaccinated for shingles in 11/03/2023 - She is vaccinated for influenza and pn eumonia at [facility] last week - She has h/o total hysterectomy and no longer performs Pap smear test - Last mammogram was in 03/27/25: Normal - Last colonoscopy was 3 years ago (unkn own practice): Normal. She will research name of practice and provide to PCP Specialists - Dr Conrad, neurologist, [facility]; she is followed yearly - [facility] orthopedic surgeon [facility] Medical History delivery delivered Lipoma of back Osteoarthritis Anesthesia complication Pulmonary nodules Hyperlipidemia Chronic cluster headache, intractable Seizure disorder Migraine Acid reflux HTN (hypertension) Surgical History Status post total left knee replacement History of esophagogastroduodenoscopy (EGD) H/O colonoscopy History of carpal tunnel release Hx of hysterectomy Family History Mother Alcohol abuse FH: mental illness Father Alcohol abuse Brother Alcohol abuse FH: mental illness Maternal Grandfather Alcohol abuse Sister Alcohol abuse FH: mental illness Maternal Grandmother FH: mental illness Social History Household Members: Children Household Members Other:: patient lives with her son, sister lives below Housing: House Housing Other:: multifamily Are you a primary in home caregiver to a significant other at home: No Do you presently have visiting nurse or other home services: Yes (VNA, speech therapy,PT/OT) Alcohol intake: never Patient Tobacco Use Status: Former Tobacco user Tobacco use type: Cigarette Years Smoked: 9 e-Cigarette/Vaping Use: Never Used Second Hand Smoke Exposure: No Advance Directives Date on File: 07/19/09 service: No 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al status: disabled 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 1. Little interest or pleasure in doing things: not at all 2. Feeling down, depressed, or hopeless: several days 3. Trouble falling or staying asleep, or sleeping too much: not at all 4. Feeling tired or having little energy: several days 5. Poor appetite or overeating: not at all 6. Feeling bad about yourself - or that you are a failure or have let yourself or your family down: several days 7. Trouble concentrating on things, such as reading the newspaper or watching television: several days 8. Moving or speaking so slowly that other people could have noticed. Or the opposite - being so fidgety or restless that you have been moving around a lot more than usual: not at all 9. Thoughts that you would be better off or of hurting yourself in some way: not at all Total score: 4 Depression Screening Interpretation: Negative Depression Screening Done: Yes 82773 - PHQ-9 Billing: Yes Source: Developed by Drs. Sin Chavira, Carolyn Amaro, Soham Elder and colleagues, with an educational kimberly from [employer]. Thrive Questionnaire Date Thrive assessed: 05/01/25 I am a: Patient What is your living situation today?: I have a steady place to live Within the past 12 months, did the food you bought not last and you didn't have the money to get more?: Never true Within the past 12 months, did you worry whether your food would run out before you got money to buy more?: Never true Do you have trouble paying for medicines?: No Do you have trouble getting transportation to medical appointments?: No Do you have trouble paying your heating and electricity bill?: No Do you have trouble taking care of your child, family member or friend?: No Do you have trouble with day-to-day activities such as bathing, preparing meals, shopping, managing finances, etc.?: No Are you currently unemployed and looking for a job?: No Are you interested in more education?: No Please select the resources that you would like help with: None Currently or been in a relationship where the following occur: No concerns reported THRIVE Score: 0 AUDIT C Alcohol Use Questionnaire (AUDIT-C) 1. How often do you have a drink containing alcohol?: Never 3. How often do you have six or more drinks on one occasion?: Never Total Score: 0 Score Reviewed/Action Taken: Yes JOHN-7 AMB Questionnaire JOHN-7 Date JOHN - 7 assessed: 05/01/25 Feeling nervous, anxious, or on edge: 0 = Not at all Not being able to stop or control worryin = Several days Worrying too much about different things: 1 = Several days Trouble relaxin = Not at all Being so restless that it is hard to sit still: 0 = Not at all Becoming easily annoyed or irritable: 0 = Not at all Feeling afraid as if something awful might happen: 0 = Not at all Total JOHN-7 score (0-4 normal; 5-9 mild; 10-14 moderate; 15-21 severe): 2 Source: Developed by Drs. Sin Chavira, Carolyn Amaro, Soham Elder and colleagues, with an educational kimberly from [employer]. JOHN-7 Assessment Billing JOHN-7 Assessment Tool: JOHN-7 Assessment 70783 Review of Systems Const Details: Denies chills, Denies fatigue, Denies fever(s), Denies headache(s) and Denies weakness HEENT Denies change in vision, Denies dizziness, Denies headache(s), Denies hearing loss, Denies nasal congestion, Denies sinus pain, Denies sinus pressure and Denies sore throat Card Denies chest pain, Denies lightheadedness, Denies dyspnea and Denies other (palpitations) Resp Denies cough, Denies dyspnea and Denies wheezing GI Denies abdominal pain, Denies melena, Denies hematochezia, Denies change in bowel habits, Denies dyspepsia and Denies nausea Denies hematuria and Denies dysuria Musc Denies abnormal gait, Denies myalgias, Denies arthralgias, Denies numbness and Denies tingling Skin/Breast Denies rash, Denies unusual bruising and Denies wounds Neuro Denies abnormal gait, Denies dizziness, Denies headache(s), Denies memory loss, Denies numbness, Denies Sensory deficit (Neuro), Denies tingling and Denies weakness Psych Denies anxiety, Denies depression and Denies memory loss Endo Denies cold intolerance, Denies fatigue, Denies heat intolerance, Denies polydipsia and Denies polyuria Sagar/Lymph Denies easy bleeding and Denies easy bruising Aller/Immun Denies wheezing Physical exam (Primary Care) Vital Signs: Last Vital Signs Temp 97.4 F 05/01/25 13:21 Pulse 62 05/01/25 13:21 Resp 16 05/01/25 13:21 BP 120/70 05/01/25 13:49 Pulse Ox 99 05/01/25 13:21 Oxygen Delivery Method Room Air 05/01/25 13:21 BMI result Body Mass Index 37.8 Tobacco/Smoking Status: Tobacco use Status Tobacco use date assessed 05/01/25 05/01/25 13:24 Patient Tobacco Use Status Former Tobacco user 05/01/25 13:15 Tobacco use type Cigarette 05/01/25 13:15 e-Cigarette/Vaping Use Never Used 05/01/25 13:15 PHQ-9: PHQ-9 Score PHQ-9: Total score 4 05/01/25 13:43 Depression Screening Interpretation: Negative Thrive Assessment: Date of Thrive Assessment Date Thrive assessed 05/01/25 05/01/25 13:32 Currently or been in a relationship where the following occur: No concerns reported Const Other: General: no acute distress, well developed, alert and awake Nutritional Appearance: well nourished Orientation/consciousness: patient oriented x3 HENMT Head: Yes normocephalic and Yes atraumatic Ears: hearing grossly normal bilaterally and TM's normal bilaterally General nose exam: Normal external nose present and Normal nares present Mouth: Normal oral and palatal mucosa present and moist mucous membranes Teeth and gingiva: dentition normal Throat: Yes oropharynx normal Eyes Pupils: Equal, round and reactive pupils present and Pupil accommodation reflex normal EOM: EOMs intact bilaterally Neck Neck: Yes normal visual inspection, Yes no lymphadenopathy and Yes trachea midline Thyroid: Thyroid normal Carotids: no bruits Lymphatic: no lymphadenopathy noted Chest Chest palpation & inspection: normal inspection of the chest Resp Effort & Inspection: normal respiratory effort Auscultation: clear to auscultation bilaterally Cardio Rate: regular rate Rhythm: regular rhythm Heart sounds: S1 normal heart sound present, S2 normal heart sound present, no gallops, no murmurs and no rubs Bruits: no abdominal aortic bruits and no carotid bruits GI Palpation (GI): No Abdominal aortic bruit present, Soft to palpation, nontender, No hepatosplenomegaly present and No Rebound tenderness present Auscultation: normal bowel sounds General: Yes no CVA tenderness Back/Spine/Pelvis Back: no CVA tenderness Cervical Spine: cervical ROM normal and No Cervical spine tenderness Thoracic/Lumbar Spine: thoraco-lumbar ROM normal, No pain with thoraco-lumbar ROM, No thoracic spinal tenderness and No lumbar spinal tenderness Skin General: warm and dry. Normal skin color. Normal skin turgor Lesions: no lesions Rashes: no rashes Trauma: no lacerations or abrasions Wounds: no wounds Nails: normal Neuro General: patient oriented x3, gait normal and CN's II-XI intact bilaterally Cranial nerves: Yes Equal, round and reactive pupils present Cognition (Neuro): normal cognition Gait exam (Neuro): Normal gait present Motor exam (neuro): 5/5 motor strength present throughout Sensory Exam: No Sensory deficit (Neuro) Deep tendon reflexes (DTR's): Right patellar reflex intensity grade: 2+ and Left patellar reflex intensity grade: 2+ Extrem General: Yes normal to inspection, No edema and No calf tenderness Psych Appearance: grossly normal Affect: normal affect Attitude: cooperative Thought process: Normal thought process present Coding Level of Care Code Est Pt Level 3 (69731) Est Pt Prev Care 40-64y(65518) Diagnoses Normal physical examination, routine Z00.00 Hyperlipidemia E78.5 HTN (hypertension) I10 Obesity (BMI 30-39.9) E66.9 Additional Codes JOHN-7 Assessment Billing - JOHN-7 Assessment Tool: JOHN-7 Assessment 31391 ([id number]) PHQ-9 - 62271 - PHQ-9 Billing: Yes ([id number]) Assessment & Plan Assessment & Plan (1) Normal physical examination, routine: Code(s): Z00.00 - Encounter for general adult medical examination without abnormal findings Category: Medical Plan: No significant functional limitation noted. Continue current treatment regimen. Healthy diet and routine exercise encouraged. Follow-up for transfer of care and hypertension in 3 months. Return sooner with symptoms or concerns. Verbalized understanding and agreed with the plan. (2) Hyperlipidemia: Code(s): E78.5 - Hyperlipidemia, unspecified Category: Medical Plan: Recent LDL level is slightly elevated, 107, triglycerides, total cholesterol, and HDL levels are normal. Continue current treatment regimen. Advised to limit foods high in saturated fat and avoid foods high in trans fat. Routine exercise encouraged. Will monitor lipid panel level annually. Verbalized understanding and agreed with plan. (3) HTN (hypertension): Code(s): I10 - Essential (primary) hypertension Category: Medical Plan: Resting blood pressure is 120/70, within goal of less than 130/80. Continue current treatment regimen. Low-sodium diet encouraged. Follow-up in 3 months. Verbalized understanding and agreed with the plan. (4) Obesity (BMI 30-39.9): Code(s): E66.9 - Obesity, unspecified Category: Medical Plan: She currently weighs 220 lb, BMI is 37.8. Her health plan declined coverage for weight management with [employer]. Healthy diet and routine exercise encouraged. Referred to [facility] licensed clinician/dietitian. Orders: Referrals Nutrition/Dietitian Referral E66.9 - Obesity, unspecified
[2025-05-01 13:21] VITALS: BP 151/70; PULSE 62; RESP 16; TEMP 36.3; O2SAT 99; BMI 37.8
[2025-05-01 13:49] VITALS: BP 120/70
--- OUTSIDE RECORDS SUMMARY | 2025-05-01 14:13 | XMS_ITS | Encounter Summary ---
Author Organization [facility] Address [address] [place] [address] Care Team Providers Care Pediatric Physical Therapist Name Role Phone Whit Thakur Primary Care Provider [phone] Encounter Details Date Type Department Care Team (Late st Contact Info) Description 01/11/2021 myChart Message [facility] [address] [place] [phone] Iván Clinton MD [address] [place] [address] Test Results Question Social History Tobacco Use [...] Description 12/02/2025 10:00 AM EDT Office Visit [facility] [address] [place], [place] [phone] Carolyn Bates MD [address] [place], [place] [phone] documented as of this encounter Visit Diagnoses Not on filedocumented in this encounter Care Teams Pediatric Physical Therapist Relationship Specialty Start Date End Date Whit Thakur [address] [place] [address] PCP - General Family Medicine 10/06/24 documented as of this encounter
--- OUTSIDE RECORDS SUMMARY | 2025-05-01 14:13 | XMS_ITS | Encounter Summary ---
Author Organization [facility] Address [address] [place] [address] Care Team Providers Care Credit Consultant Name Role Phone Whit Thakur Primary Care Provider [phone] Reason for Visit * Reason Onset Date Comments request to speak with nurse 04/18/2021 Dr Mumtaz cochran med question 04/18/2021 Encounter Details Date Type Department Care Team (Late st Contact Info) Description 04/18/2021 Telephone [facility] Neurology Clinic [address] [place] [address] Telephone Intake, Staff request to speak [...] have any other questions at this time. #[phone] * Telephone Encounter - Sharon Bay RN - 04/18/2021 3:09 PM EDT Pt called to report that the PCP refused to prescribe the diclofenac for the pt that is a neurologymedication. The pt stated that her previous neurologist Dr Arias from [facility] is who originally prescribed it for [...] call back from nurse Katherine Keita # [phone] Please route your response back to the [facility] Neurology Admin Staff Pool. Thank you documented in this encounter Plan of Treatment Upcoming Encounters Date Type Department Care Team (Late st Contact Info) Description 12/02/2025 10:00 AM EDT Office Visit [facility] Neurology Clinic [address] [place], [place] [phone] Carolyn Bates MD [address] [place] [address] [phone] documented as of this encounter Visit Diagnoses Not on filedocumented in this encounter Care Teams Credit Consultant Relationship Specialty Start Date End Date Whit Thakur [address] [place] [phone] PCP - General Family Medicine 10/06/24 documented as of this encounter
--- OUTSIDE RECORDS SUMMARY | 2025-05-01 14:13 | XMS_ITS | Encounter Summary ---
Author Organization [facility] Address [address] [place] [address] Care Team Providers Care Engineer Intern Name Role Phone Whit Thakur Primary Care Provider [phone] Reason for Visit * Reason Onset Date Comments Patient has questions 04/27/2021 Pt of Ricky Devries; Pt of [place] Encounter Details Date Type Department Care Team (Late st Contact Info) Description 04/27/2021 Telephone [facility] [address] [place] [address] Telephone Intake, Staff Patient has questions [...] Office Visit [facility] [address] [place] [address] Carolyn Bates MD [address] [place] [address] documented as of this encounter Visit Diagnoses Not on filedocumented in this encounter Care Teams Engineer Intern Relationship Specialty Start Date End Date Whit Thakur [address] [place] [address] PCP - General Family Medicine 10/06/24 documented as of this encounter
--- OUTSIDE RECORDS SUMMARY | 2025-05-01 14:13 | XMS_ITS | Encounter Summary ---
Author Organization [facility] Address [address] [place] [address] Care Team Providers Care Hand Candy Dipper Name Role Phone Whit Thakur Primary Care Provider [phone] Encounter Details Date Type Department Care Team (Late st Contact Info) Description 08/02/2022 Orders Only [facility]rology [facility] [address] [place] [address] Shantel Cardoza MD [address] [place], [place] [phone] Headache syndrome; Transient neurological symptoms Social History [...] Description 12/02/2025 10:00 AM EDT Office Visit [facility] [address] [place], [place] [phone] Carolyn Bates MD [address] [place] [phone] documented as of this encounter Results * Due to [place] state law, this organization might not be sharing negative HIV tests. * Ambulatory EEG (08/02/2022 12:38 PM EST) Narrative Shantel Cardoza MD - 08/02/2022 12:38 PM EST Shantel Cardoza MD 08/02/2022 2:32 PM [facility]-DAY [facility]UL[facility] CONTINUOUS VIDEO-EEG REPORT Patient: [place] [...] and placement protocol in person by an fur scraper for the purposes of recording long-term video [...] and referential electrode montages. The patient or polisher brass was instructed to keep an event log [...] discharges or ictal build up. Single Channel Mechanical Engineering Advisor: Rhythm: regular Rate (typical): ~ 66 bpm [...] symptoms documented in this encounter Care Teams Hand Candy Dipper Relationship Specialty Start Date End Date Whit Thakur [address] [place] [address] PCP - General Family Medicine 10/06/24 documented as of this encounter
--- OUTSIDE RECORDS SUMMARY | 2025-05-01 14:13 | XMS_ITS | Encounter Summary ---
Author Organization [facility] Address [address] [place] [address] Care Team Providers Care Exerciser Horse Name Role Phone Whit Thakur Primary Care Provider [phone] Encounter Details Date Type Department Care Team (Late st Contact Info) Description 03/02/2021 Telephone [facility] Neurology [facility] [address] [place] [address] [phone] Telephone Intake, Staff Social History Tobacco Use [...] Description 12/02/2025 10:00 AM EDT Office Visit [facility] [address] [place] [address] Carolyn Bates MD [address] [place] [address] documented as of this encounter Visit Diagnoses Not on filedocumented in this encounter Care Teams Exerciser Horse Relationship Specialty Start Date End Date Whit Thakur [address] [place] [address] PCP - General Family Medicine 10/06/24 documented as of this encounter
--- OUTSIDE RECORDS SUMMARY | 2025-05-01 14:13 | XMS_ITS | Encounter Summary ---
Author Organization [facility] Address [address] [place] [address] Care Team Providers Care Senior Compensation Consultant Name Role Phone Whit Thakur Primary Care Provider [phone] Reason for Visit * Reason Onset Date Comments Med Refill 07/15/2021 Encounter Details Date Type Department Care Team (Late st Contact Info) Description 07/15/2021 Telephone [facility] Neurology Clinic [address] [place] [address] Telephone Intake, Staff Med Refill Social [...] Please route your response back to the [facility] Neurology Admin Staff Pool. Thank you documented in this encounter Plan of Treatment Upcoming Encounters Date Type Department Care Team (Late st Contact Info) Description 12/02/2025 10:00 AM EDT Office Visit [facility] Neurology Clinic [address] [place] [address] Carolyn Bates MD [address] [place] [address] documented as of this encounter Visit Diagnoses Not on filedocumented in this encounter Care Teams Senior Compensation Consultant Relationship Specialty Start Date End Date Whit Thakur [address] [place] [address] PCP - General Family Medicine 10/06/24 documented as of this encounter
--- OUTSIDE RECORDS SUMMARY | 2025-05-01 14:13 | XMS_ITS | Patient Health Record ---
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) Active confirmed Problem Chronic intractable migraine without aura ([id number] 5) Chronic migraine without aura, intractable, with status migrainosus (G43.711) Active confirmed Problem Transient ischemic attack (336922155) 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 Plan Of Treatment No Information Insurance Providers Payer Name Payer Address Payer Phone Subscriber Number Group Number Insured Name Patient Relationship to Insured Coverage Start Date Coverage End Date [place] Medicaid [address] [place] [address] [id number] Kenya Awad Self - patient is the insured Medical (General) History Medical History History ICD Code seizure disorder HTN gerd Surgical History Surgery Date(Month/Year) FRITZ w/o uterine fibroids 2010 carpal tunnel repair bilat resection flank lipoma in 20s Hospitalization History Reason Date(Month/Year) [facility] (yc hiatry-dreamy state, hallucinations) x 5 d 2017
--- OUTSIDE RECORDS SUMMARY | 2025-05-01 14:13 | XMS_ITS | Encounter Summary ---
Author Organization [facility] Address [address] [place] [address] Care Team Providers Care Expressive Art Therapist Name Role Phone Whit Thakur Primary Care Provider [phone] Reason for Visit * Reason Onset Date Comments Send message to Dr. Conrad 04/04/2021 Pt of Conrad EEG home device not working 04/04/2021 Encounter Details Date Type Department Care Team (Late st Contact Info) Description 04/04/2021 Telephone [facility] [address] [place] [address] Telephone Intake, Staff Send message to [...] technical difficulty with the EEG device the [facility] it [facility]. The pt neverhad the EEG reading started before the device issue. She would like a new device. Can we have a device sent to her in the mail? #[phone] * Telephone Encounter - Siomara Meghan - [...] be reached at her home number at [phone]. Thank you documented in this encounter Plan of Treatment Upcoming Encounters Date Type Department Care Team (Late st Contact Info) Description 12/02/2025 10:00 AM EDT Office Visit [facility] [address] [place] [address] Carolyn Bates MD [address] [place] [address] documented as of this encounter Visit Diagnoses Not on filedocumented in this encounter Care Teams Expressive Art Therapist Relationship Specialty Start Date End Date Whit Thakur [address] [place] [address] PCP - General Family Medicine 10/06/24 documented as of this encounter
--- OUTSIDE RECORDS SUMMARY | 2025-05-01 14:13 | XMS_ITS | Clinical Summary ---
Author Organization [facility] Address [address] [place] [address] Care Team Providers Care Tobacco Sorter Name Role Phone Whit Thakur Primary Care Provider [phone] Allergies Active Allergy Reactions Criticality Noted Date [...] different from the original. PT-1 Request Number [id number] is Approved, 2 visits per month for [...] appointments with the headache/migraine providers here at [facility]. She has since found a new [...] me now that I have returned to [facility]. Regarding the episodes that she calls [...] HD: Reportedly was evaluated at a genetics center/[place] [facility] in [place], but those records are not available. Plans to be evaluated at genetics clinic at [facility]. - Continue Lamotrigine 200 mg [...] patient would prefer somewhere closer to home ([place]) - Ambulatory EEG pending - Seizure/Fall precautions at all times - Seizure and headache diary recommended - Genetic testing consultation scheduled. (+FH of HD) - Follow up in 3-4 months Resolved Problems Problem Noted Date Diagnosed Date Resolved Date Seizure 12/17/2020 12/13/2023 Family History Medical History Relation Name Comments COPD Father [place]'s disease Father Brain Aneurysm Maternal Grandmother Dementia [...] EDT Office Visit [facility] [address] [place] [address] Carolyn Bates MD [address] [place] [address] Health Maintenance Due Date Last Done Comments [...] 11/03/2023, 07/14/2023 Medical Devices Implanted Type Area Bead Machine Operator Device Identifier Shelf Expiration Date Model / Serial / Lot Device Closure Vascular 5fr Vascade - [id number] Implanted:Qty: 1 on 11/30/2022 at [facility] Implant [employer] EMMY 08/22/2024 [id number] / / [id number] Procedures * Due to [place] [employer] law, this organization might not be sharing negative HIV tests. Procedure Name Priority Date/Time Associated Diagnosis Comments COMPREHENSIVE METABOLIC PANEL Routine 12/13/2023 2:02 PM EDT Seizure-like activity from Last 3 Months or Most Recently Relevant to Health Maintenance Results * Due to [facility] law, this organization might not be sharing negative HIV tests. * (ABNORMAL) Comprehensive Metabolic Panel (12/13/2023 2:02 PM EDT) NA 139 135 - 145 mmol/L 12/13/2023 3:29 PM EDT [facility] K 4.6 3.5 - 5.3 mmol/L 12/13/2023 3:29 PM EDT [facility] Cl 100 98 - 107 mmol/L 12/13/2023 3:29 PM EDT [facility] CO2 28 24 - 32 mmol/L 12/13/2023 3:29 PM EDT [facility] Anion Gap 11 5 - 15 12/13/2023 3:29 PM EDT [facility] Glucose 112(H) 65 - 99 mg/dL 12/13/2023 3:29 PM EDT [facility] Creatinine 0.68 0.50 - 1.20 mg/dL 12/13/2023 3:29 PM EDT [facility] Calcium 10.5 8.6 - 10.5 mg/dL 12/13/2023 3:29 PM EDT [facility] Total Protein 6.9 6.0 - 8.0 g/dL 12/13/2023 3:29 PM EDT [facility] Albumin 4.8 3.5 - 5.2 g/dL 12/13/2023 3:29 PM EDT [facility] Bilirubin, Total 0.2 0.2 - 1.2 mg/dL 12/13/2023 3:29 PM EDT [facility] Alkaline Phosphatase 71 35 - 129 U/L 12/13/2023 3:29 PM EDT [facility] AST 16 10 - 40 U/L 12/13/2023 3:29 PM EDT [email or web address] ALT 22 10 - 40 U/L 12/13/2023 3:29 PM EDT [facility] BUN 10 7 - 23 mg/dL 12/13/2023 3:29 PM EDT [facility] eGFR >90 >=60 mL/min/1. 73m2 12/13/2023 3:29 PM EDT [facility] Comment: The estimated glomerular [...] - 4.2 g/dL 12/13/2023 3:29 PM EDT [facility] A/G Ratio 2.3 1.5 - 3.0 12/13/2023 3:29 PM EDT [facility] Blood Structure of peripheral vein / Unknown Venipuncture / Unknown 12/13/2023 2:02 PM EDT 12/13/2023 2:31 PM EDT us Keith Conrad MD LAB BLOOD ORDERABLES Final Resul t [facility] [address] [place] [address], from Last 3 Months or Most Recently Relevant to Health Maintenance Insurance [id number] Advance Directives Documents on File Type Date Recorded Patient Card Hanger Expl anation Health Care Proxy 11/24/2022 1:13 PM HEALTH CARE PROXY SCANNED IN Care Teams Tobacco Sorter Relationship Specialty Start Date End Date Whit Thakur [address] [place] [address] PCP - General Family Medicine 10/06/24
--- OUTSIDE RECORDS SUMMARY | 2025-05-01 14:13 | XMS_ITS | Encounter Summary ---
Author Organization [facility] Address [address] [place] [address] Care Team Providers Care Calender Operator Helper Name Role Phone Whit Thakur Primary Care Provider [phone] Reason for Visit * Reason Onset Date Comments Appointment 09/28/2021 Encounter Details Date Type Department Care Team (Late st Contact Info) Description 09/28/2021 Telephone 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 Conrad documented in this encounter Plan of Treatment Upcoming Encounters Date Type Department Care Team (Late st Contact Info) Description 12/02/2025 10:00 AM EDT Office Visit [facility] [address] [place], [place] [phone] Carolyn Bates MD [address] [place] [address] documented as of this encounter Visit Diagnoses Not on filedocumented in this encounter Care Teams Calender Operator Helper Relationship Specialty Start Date End Date Whit Thakur [address] [place] [address] PCP - General Family Medicine 10/06/24 documented as of this encounter
--- OUTSIDE RECORDS SUMMARY | 2025-05-01 14:13 | XMS_ITS | Encounter Summary ---
Author Organization [facility] Address [address] [place] [address] Care Team Providers Care Ophthalmic Assistant Name Role Phone Whit Thakur Primary Care Provider [phone] Encounter Details Date Type Department Care Team (Late st Contact Info) Description 07/19/2021 myChart Message [facility] [address] [place] [address] Jackie Ritchie MA Medication question Social History [...] Description 12/02/2025 10:00 AM EDT Office Visit [facility] [address] [place] [address] Carolyn Bates MD [address] [place] [address] documented as of this encounter Visit Diagnoses Not on filedocumented in this encounter Care Teams Ophthalmic Assistant Relationship Specialty Start Date End Date Whit Thakur [address] [place] [phone] PCP - General Family Medicine 10/06/24 documented as of this encounter
--- OUTSIDE RECORDS SUMMARY | 2025-05-01 14:13 | XMS_ITS | Encounter Summary ---
Author Organization [facility] Address [address] [place] [address] Care Team Providers Care Forensic Toxicologist Name Role Phone Whit Thakur Primary Care Provider [phone] Encounter Details Date Type Department Care Team (Late st Contact Info) Description 03/22/2022 Telephone [facility] [address] [place] [address] [phone] Telephone Intake, Staff Social History Tobacco Use [...] - 03/27/2022 10:38 AM EDT PT-1 Number: [id number] Neurology Clinic - EXP: 03/23/2023 Treatment Details [...] Office Visit [facility] [address] [place] [address] Carolyn Bates MD [address] [place] [address] documented as of this encounter Visit Diagnoses Not on filedocumented in this encounter Care Teams Forensic Toxicologist Relationship Specialty Start Date End Date Whit Thakur [address] [place] [address] PCP - General Family Medicine 10/06/24 documented as of this encounter
--- OUTSIDE RECORDS SUMMARY | 2025-05-01 14:13 | XMS_ITS | Encounter Summary ---
Author Organization [facility] Address [address] [place] [address] Care Team Providers Care Tax Accounting Manager Name Role Phone Whit Thakur Primary Care Provider [phone] Reason for Visit * Reason Onset Date Comments cs appointment new botox 11/29/2022 Encounter Details Date Type Department Care Team (Late st Contact Info) Description 11/29/2022 Telephone [facility] Central Scheduling Department [address] [place] [address] Telephone Intake, Staff cs appointment new botox [...] to schedule appointment. DT send TE Kenya: [phone] Thank you documented in this encounter Plan of Treatment Upcoming Encounters Date Type Department Care Team (Late st Contact Info) Description 12/02/2025 10:00 AM EDT Office Visit [facility] [address] [place] [address] Carolyn Bates MD [address] [place] [address] documented as of this encounter Visit Diagnoses Not on filedocumented in this encounter Care Teams Tax Accounting Manager Relationship Specialty Start Date End Date Whit Thakur [address] [place] [address] PCP - General Family Medicine 10/06/24 documented as of this encounter
--- OUTSIDE RECORDS SUMMARY | 2025-05-01 14:13 | XMS_ITS | Encounter Summary ---
Author Organization [facility] Address [address] [place] [address] Care Team Providers Care Report Writer Name Role Phone Whit Thakur Primary Care Provider [phone] Encounter Details Date Type Department Care Team (Late st Contact Info) Description 07/22/2021 Telephone [facility] [address] [place] [address] Telephone Intake, Staff Social History Tobacco [...] regarding Nancy. Pt may be reached at [phone] documented in this encounter Plan of Treatment Upcoming Encounters Date Type Department Care Team (Late st Contact Info) Description 12/02/2025 10:00 AM EDT Office Visit [facility] [address] [place] [address] [phone] Carolyn Bates MD [address] [place] [address] [phone] documented as of this encounter Visit Diagnoses Not on filedocumented in this encounter Care Teams Report Writer Relationship Specialty Start Date End Date Whit Thakur [address] [place] [address] PCP - General Family Medicine 10/06/24 documented as of this encounter
--- OUTSIDE RECORDS SUMMARY | 2025-05-01 14:13 | XMS_ITS | Encounter Summary ---
Author Organization [facility] Address [address] [place] [address] Care Team Providers Care Coil Inspector Name Role Phone Whit Thakur Primary Care Provider [phone] Encounter Details Date Type Department Care Team (Late st Contact Info) Description 03/01/2021 Telephone [facility] [address] [place] [address] Telephone Intake, Staff Social History Tobacco [...] Description 12/02/2025 10:00 AM EDT Office Visit [facility] [address] [place] [address] Carolyn Bates MD [address] [place] [address] documented as of this encounter Visit Diagnoses Not on filedocumented in this encounter Care Teams Coil Inspector Relationship Specialty Start Date End Date Whit Thakur [address] [place] [address] PCP - General Family Medicine 10/06/24 documented as of this encounter
--- OUTSIDE RECORDS SUMMARY | 2025-05-01 14:13 | XMS_ITS | Encounter Summary ---
Author Organization [facility] Address [address] [place] [address] Care Team Providers Care Unit Receptionist Name Role Phone Whit Thakur Primary Care Provider [phone] Reason for Visit * Reason Onset Date Comments Referral Request 08/23/2021 Encounter Details Date Type Department Care Team (Late st Contact Info) Description 08/23/2021 Telephone [facility] Central Scheduling Department [address] [place] [address] Telephone Intake, Staff Referral Request Social History [...] to a specialist. I tried front office administrator but was unable to get ahold of anyone. Please reach out to PT with any information. documented in this encounter Plan of Treatment Upcoming Encounters Date Type Department Care Team (Late st Contact Info) Description 12/02/2025 10:00 AM EDT Office Visit [facility] [address] [place], [place] [phone] Carolyn Bates MD [address] [place] [address] documented as of this encounter Visit Diagnoses Not on filedocumented in this encounter Care Teams Unit Receptionist Relationship Specialty Start Date End Date Whit Thakur [address] [place] [address] PCP - General Family Medicine 10/06/24 documented as of this encounter
== END 2025-05-01 14:07 | disposition home or self-care (01) ==
LOC: HO.HMCFM 13:06
PROVIDERS: PCP Nurse Practitioner Family; Visit Provider Nurse Practitioner Family
DX: Z00.00 Encounter for general adult medical examination without abnormal findings (principal); E78.5 Hyperlipidemia, unspecified; E66.9 Obesity, unspecified; Z68.37 Body mass index [BMI] 37.0-37.9, adult; I10 Essential (primary) hypertension

== ENCOUNTER → 2025-05-01 13:05 | Outpatient (BNVA) | payer OTHER, SELFPAY | PROVIDERS: PCP Nurse Practitioner Family; Visit Provider Nurse Practitioner Family | DX: Z00.00 Encounter for general adult medical examination without abnormal findings (principal); E78.5 Hyperlipidemia, unspecified; I10 Essential (primary) hypertension; E66.9 Obesity, unspecified; Z68.37 Body mass index [BMI] 37.0-37.9, adult | CPT/HCPCS: 96127; 99396 ==